=== PATIENT | male | born 1940 | race Caucasian/White ===

== ENCOUNTER 2017-06-11 14:47 | Inpatient (IN) | payer MEDICARE, OTHER ==
[~2017-06-11] VITALS: Ht 175.3 cm; Wt 62.1 kg
[2017-06-11] MEDS ORDERED: FOLIC ACID1 MG ORAL (15:00)
[2017-06-11] MEDS ORDERED: LOTENSIN20 MG ORAL (15:00)
[2017-06-11] MEDS ORDERED: LAMICTAL25 MG ORAL (15:00)
[2017-06-11] MEDS ORDERED: ASPIRIN-LOW81 MG ORAL (15:00)
[2017-06-11] MEDS ORDERED: ATIVAN0.5 MG ORAL (15:00)
[2017-06-11] MEDS ORDERED: LEXAPRO10 MG ORAL (15:00)
[2017-06-11] MEDS ORDERED: MILK OF MA400 MG/51 ORAL (15:00)
[2017-06-11] MEDS ORDERED: RENA-VITE TABL0.8 M1 PO (15:12)
[2017-06-11] MEDS ORDERED: CALCIUM 500 +1 EAC5 PO (15:12)
[2017-06-11] MEDS ORDERED: MULTIVITAMINS1 EAC8 ORAL (15:12)
[2017-06-11] MEDS ORDERED: ZYPREXA5 MG ORAL (15:12)
[2017-06-11] MEDS ORDERED: VITAMIN C500 M1 ORAL (15:12)
[2017-06-11] MEDS ORDERED: ACETAMINOPHEN325 M1 ORAL (15:12)
[2017-06-11] MEDS ORDERED: NEPHROVITE1 TAB ORAL (15:12)
[2017-06-11] MEDS ORDERED: RESTORIL15 MG ORAL (15:12)
--- NOTE | 2017-06-11 15:19 | Emergency Room Report ---
History of Present Illness General Chief Complaint: Altered Level of Consciousness Source: Patient, Medical Record, EMS Present Illness HPI Patient's 77-year-old male who presents after increased altered mental status. Patient was noted to have gradual onset of symptoms. Patient is normally more alert and had been noted to have decreased by mouth intake. Allergies: Coded Allergies: No Known Allergies (Unverified , 06/11/17) Patient History Past Medical History: see triage record Reviewed Nursing Documentation: PMH: Agreed, PSxH: Agreed Nursing Documentation-PMH Hx COPD: Yes Review of Systems All Other Systems: limited Physical Exam Vital Signs Date Time Temp Pulse Resp B/P (MAP) Pulse Ox O2 Delivery O2 Flow Rate FiO2 06/11/17 14:38 97.5 60 18 126/76 90 Room Air Sp02 EP Interpretation: reviewed, normal General Appearance: alert, Chronically Ill Head: atraumatic Neck: supple, no bony tend, limited range of motion Respiratory: normal inspection, lungs clear, normal breath sounds, no respiratory distress, no retraction, no wheezing Cardiovascular #1: regular rate, rhythm, no edema Gastrointestinal: normal inspection, normal bowel sounds, non tender, soft, no guarding, no hernia Genitourinary: no CVA tenderness Musculoskeletal: normal inspection, back normal, normal range of motion Neurologic: normal inspection, alert, motor weakness - left upper and lower extremity Psychiatric: depressed affect Skin: normal inspection, normal color, no rash Medical Decision Making Diagnostic Impression: Primary Impression: Altered level of consciousness Additional Impressions: Urinary tract infection CVA, old, hemiparesis ER Course Patient presented for altered mental status. Differential diagnosis included but was not limited to ischemic stroke, subarachnoid hemorrhage, hypoglycemia, spinal cord injury, neurodegenerative disorder, urinary tract infection, hypoxemia.Because of complexity of patient's case laboratory testing and imaging studies were ordered.Laboratory testing showed evidence of urinary tract infection. Patient started on IV fluids. He was given IV antibiotics. Patient appears to be somewhat dehydrated.The patient was noted to have a prior history of CVA with contractions to the lower extremities on the left side Dr. Sree Honeycutt was contacted for inpatient management as covering physician Labs Test 06/11/17 15:00 06/11/17 15:25 Arterial Blood pH 7.410 (7.350-7.450) Arterial Blood Partial Pressure CO2 38.5 mmHg (35.0-45.0) Arterial Blood Partial Pressure O2 72.6 mmHg (75.0-100.0) Arterial Blood HCO3 24.1 mmol/L (22.0-26.0) Arterial Blood Oxygen Saturation 94.5 % (92.0-98.0) Arterial Blood Base Excess -0.2 Pepe Test Positive White Blood Count 9.1 K/UL (4.8-10.8) Red Blood Count 4.95 M/UL (4.70-6.10) Hemoglobin 15.2 G/DL (14.2-18.0) Hematocrit 47.5 % (42.0-52.0) Mean Corpuscular Volume 96 FL (80-99) Mean Corpuscular Hemoglobin 30.7 PG (27.0-31.0) Mean Corpuscular Hemoglobin Concent 32.0 G/DL (32.0-36.0) Red Cell Distribution Width 12.1 % (11.6-14.8) Platelet Count 126 K/UL (150-450) Mean Platelet Volume 6.9 FL (6.5-10.1) Neutrophils (%) (Auto) 70.3 % (45.0-75.0) Lymphocytes (%) (Auto) 21.5 % (20.0-45.0) Monocytes (%) (Auto) 7.5 % (1.0-10.0) Eosinophils (%) (Auto) 0.2 % (0.0-3.0) Basophils (%) (Auto) 0.5 % (0.0-2.0) Prothrombin Time 10.0 SEC (9.30-11.50) Prothromb Time International Ratio 1.0 (0.9-1.1) Activated Partial Thromboplast Time 31 SEC (23-33) Urine Color Brown Urine Appearance Slightly cloudy Urine pH 5 (4.5-8.0) Urine Specific [place] 1.020 (1.005-1.035) Urine Protein 2+ (NEGATIVE) Urine Glucose (UA) Negative (NEGATIVE) Urine Ketones 1+ (NEGATIVE) Urine Occult Blood 3+ (NEGATIVE) Urine Nitrite Negative (NEGATIVE) Urine Bilirubin Negative (NEGATIVE) Urine Urobilinogen 4 MG/DL (0.0-1.0) Urine Leukocyte Esterase 3+ (NEGATIVE) Urine RBC 30-40 /HPF (0 - 0) Urine WBC 40-60 /HPF (0 - 0) Urine Squamous Epithelial Cells Occasional /LPF Urine Bacteria Moderate /HPF (NONE) EKG Diagnostic Results Rate: bradycardiac - 51 Rhythm: NSR ST Segments: no acute changes Last Vital Signs Date Time Temp Pulse Resp B/P (MAP) Pulse Ox O2 Delivery O2 Flow Rate FiO2 06/11/17 14:38 97.5 60 18 126/76 90 Room Air Status: unchanged Disposition: ADMITTED INPATIENT Condition: Serious Referrals: MADDIE AMATO (PCP) Forrest Martin Jun 11, 2017 15:19
[2017-06-11 16:00] VITALS: BP 120/87
[2017-06-11] MEDS ORDERED: Tubing IV Cassette IV ONE (16:10)
[2017-06-11 16:20] LABS: APPEARANCE,URINE SLIGHTLY CLOUDY; BILIRUBIN, URINE NEGATIVE (NEGATIVE); COLOR,URINE BROWN; GLUCOSE, URINE (UA) NEGATIVE (NEGATIVE); KETONES,URINE 1+ (NEGATIVE); LEUKOCYTE ESTERASE ,URINE 3+ (NEGATIVE); NITRITE,URINE NEGATIVE (NEGATIVE); PH,URINE 5 (4.5-8.0); PROTEIN,URINE 2+ (NEGATIVE); UROBILINOGEN,URINE 4 MG/DL (0.0-1.0)
[2017-06-11 16:28] LABS: BASOPHILS % (AUTO) 0.5 % (0.0-2.0); EOSINOPHILS % (AUTO) 0.2 % (0.0-3.0); HEMATOCRIT 47.5 % (42.0-52.0); HEMOGLOBIN 15.2 G/DL (14.2-18.0); LYMPHOCYTES % (AUTO) 21.5 % (20.0-45.0); MEAN CORPUSCULAR VOLUME 96 FL (80-99); MONOCYTES % (AUTO) 7.5 % (1.0-10.0); NEUTROPHILS % (AUTO) 70.3 % (45.0-75.0); PLATELET COUNT 126 K/UL (150-450); RED BLOOD COUNT 4.95 M/UL (4.70-6.10); RED CELL DISTRIBUTION WIDTH 12.1 % (11.6-14.8); WHITE BLOOD COUNT 9.1 K/UL (4.8-10.8)
[2017-06-11 16:29] LABS: ANION GAP 11 mmol/L (5-15); BLOOD UREA NITROGEN 41 mg/dL (7-18); CALCIUM 7.8 MG/DL (8.5-10.1); CARBON DIOXIDE 27 MMOL/L (21-32); CHLORIDE 115 MMOL/L (98-107); CREATININE 1.3 MG/DL (0.55-1.30); POTASSIUM 3.7 MMOL/L (3.5-5.1); SODIUM 153 MMOL/L (136-145)
[2017-06-11 16:42] LABS: ALANINE AMINOTRANSFERASE 11 U/L (12-78); ALBUMIN 2.8 G/DL (3.4-5.0); ALBUMIN/GLOBULIN RATIO 0.7 (1.0-2.7); ALKALINE PHOSPHATASE 79 U/L (46-116); ASPARTATE AMINO TRANSFERASE 17 U/L (15-37); BILIRUBIN,TOTAL 0.6 MG/DL (0.2-1.0); CKMB < 0.5 NG/ML (0.0-3.6); CREATINE KINASE 13 U/L (26-308)
[2017-06-11] MEDS ORDERED: cefTRIAXone 2 GM in NS 55 ML IVPB ONE (16:45)
[2017-06-11] MEDS ORDERED: NS 55 ML IV ONE (17:38)
[2017-06-11 18:00] VITALS: BP 121/61
[2017-06-11 20:40] VITALS: BP 153/62
[2017-06-11 23:44] VITALS: BP 155/77
[2017-06-12] VITALS (7 sets, daily range): BP systolic 111–161; BP diastolic 68–87
[2017-06-12] MEDS ORDERED: Milk of Magnesia 30ml Ud ORAL PRN (07:30)
[2017-06-12] MEDS ORDERED: LORazepam 0.5mg tab ORAL PRN (07:30)
[2017-06-12 08:20] LABS: BASOPHILS % (AUTO) 0.9 % (0.0-2.0); EOSINOPHILS % (AUTO) 1.3 % (0.0-3.0); HEMATOCRIT 45.7 % (42.0-52.0); HEMOGLOBIN 15.1 G/DL (14.2-18.0); LYMPHOCYTES % (AUTO) 22.2 % (20.0-45.0); MEAN CORPUSCULAR VOLUME 97 FL (80-99); NEUTROPHILS % (AUTO) 67.6 % (45.0-75.0); PLATELET COUNT 120 K/UL (150-450); RED CELL DISTRIBUTION WIDTH 12.5 % (11.6-14.8)
[2017-06-12] MEDS: Ascorbic Acid 500mg tab ORAL SCH (08:49)
[2017-06-12] MEDS: Aspirin Baby 81mg ORAL SCH (08:49)
[2017-06-12] MEDS ORDERED: Nephrovite tab (Rena-Vite) ORAL SCH ×2 (09:00)
[2017-06-12] MEDS ORDERED: Flu Vaccine Quadrivalent 0.5ml IM ONE (09:00)
[2017-06-12] MEDS: Heparin 5000 units/ml inj SUBQ SCH ×2 (09:00→17:39)
[2017-06-12 09:02] LABS: ALANINE AMINOTRANSFERASE < 6 U/L (12-78); ALBUMIN 2.6 G/DL (3.4-5.0); ALBUMIN/GLOBULIN RATIO 0.7 (1.0-2.7); ALKALINE PHOSPHATASE 69 U/L (46-116); ANION GAP 10 mmol/L (5-15); ASPARTATE AMINO TRANSFERASE 17 U/L (15-37); BILIRUBIN,TOTAL 0.5 MG/DL (0.2-1.0); BLOOD UREA NITROGEN 40 mg/dL (7-18); CALCIUM 7.8 MG/DL (8.5-10.1); CARBON DIOXIDE 24 MMOL/L (21-32); CHLORIDE 120 MMOL/L (98-107); CREATININE 0.9 MG/DL (0.55-1.30); POTASSIUM 3.6 MMOL/L (3.5-5.1); SODIUM 154 MMOL/L (136-145)
--- NOTE | 2017-06-12 10:12 | Consultation ---
Consult Note Consult Note Patient's 77-year-old male who presents after increased altered mental status. Patient was noted to have gradual onset of symptoms. Patient is normally more alert and had been noted to have decreased by mouth intake. examined- non historian data reviewed meds reviewed discussed with RN . Assessment/Plan Encephalopathy Urinary tract infection CVA, old, hemiparesis Hypernatremia / dehydration D5W Adjust mind altering meds monitor renal parameters Antibiotics JACQUELINE HILL Jun 12, 2017 10:12
--- NOTE | 2017-06-12 12:09 | Neurology Progress Note ---
Objective Physical Exam Last Vital Signs Date Time Temp Pulse Resp B/P (MAP) Pulse Ox O2 Delivery O2 Flow Rate FiO2 06/12/17 08:48 147/70 06/12/17 04:00 63 06/12/17 04:00 97.5 20 97 Nasal Cannula 06/12/17 00:05 2.0 Laboratory Tests Test 06/11/17 15:00 06/11/17 15:25 06/12/17 07:47 Arterial Blood pH 7.410 (7.350-7.450) Arterial Blood Partial Pressure CO2 38.5 mmHg (35.0-45.0) Arterial Blood Partial Pressure O2 72.6 mmHg (75.0-100.0) L Arterial Blood HCO3 24.1 mmol/L (22.0-26.0) Arterial Blood Oxygen Saturation 94.5 % (92.0-98.0) Arterial Blood Base Excess -0.2 Pepe Test Positive White Blood Count 9.1 K/UL (4.8-10.8) 6.0 K/UL (4.8-10.8) Red Blood Count 4.95 M/UL (4.70-6.10) 4.70 M/UL (4.70-6.10) Hemoglobin 15.2 G/DL (14.2-18.0) 15.1 G/DL (14.2-18.0) Hematocrit 47.5 % (42.0-52.0) 45.7 % (42.0-52.0) Mean Corpuscular Volume 96 FL (80-99) 97 FL (80-99) Mean Corpuscular Hemoglobin 30.7 PG (27.0-31.0) 32.1 PG (27.0-31.0) H Mean Corpuscular Hemoglobin Concent 32.0 G/DL (32.0-36.0) 33.0 G/DL (32.0-36.0) Red Cell Distribution Width 12.1 % (11.6-14.8) 12.5 % (11.6-14.8) Platelet Count 126 K/UL (150-450) L 120 K/UL (150-450) L Mean Platelet Volume 6.9 FL (6.5-10.1) 6.7 FL (6.5-10.1) Neutrophils (%) (Auto) 70.3 % (45.0-75.0) 67.6 % (45.0-75.0) Lymphocytes (%) (Auto) 21.5 % (20.0-45.0) 22.2 % (20.0-45.0) Monocytes (%) (Auto) 7.5 % (1.0-10.0) 8.0 % (1.0-10.0) Eosinophils (%) (Auto) 0.2 % (0.0-3.0) 1.3 % (0.0-3.0) Basophils (%) (Auto) 0.5 % (0.0-2.0) 0.9 % (0.0-2.0) Prothrombin Time 10.0 SEC (9.30-11.50) Prothromb Time International Ratio 1.0 (0.9-1.1) Activated Partial Thromboplast Time 31 SEC (23-33) Urine Color Brown Urine Appearance Slightly cloudy Urine pH 5 (4.5-8.0) Urine Specific [place] 1.020 (1.005-1.035) Urine Protein 2+ (NEGATIVE) H Urine Glucose (UA) Negative (NEGATIVE) Urine Ketones 1+ (NEGATIVE) H Urine Occult Blood 3+ (NEGATIVE) H Urine Nitrite Negative (NEGATIVE) Urine Bilirubin Negative (NEGATIVE) Urine Urobilinogen 4 MG/DL (0.0-1.0) H Urine Leukocyte Esterase 3+ (NEGATIVE) H Urine RBC 30-40 /HPF (0 - 0) H Urine WBC 40-60 /HPF (0 - 0) H Urine Squamous Epithelial Cells Occasional /LPF Urine Bacteria Moderate /HPF (NONE) H Sodium Level 153 MMOL/L (136-145) H 154 MMOL/L (136-145) H Potassium Level 3.7 MMOL/L (3.5-5.1) 3.6 MMOL/L (3.5-5.1) Chloride Level 115 MMOL/L (98-107) H 120 MMOL/L (98-107) H Carbon Dioxide Level 27 MMOL/L (21-32) 24 MMOL/L (21-32) Anion Gap 11 mmol/L (5-15) 10 mmol/L (5-15) Blood Urea Nitrogen 41 mg/dL (7-18) H 40 mg/dL (7-18) H Creatinine 1.3 MG/DL (0.55-1.30) 0.9 MG/DL (0.55-1.30) Estimat Glomerular Filtration Rate mL/min (>60) mL/min (>60) Glucose Level 123 MG/DL (74-106) H 105 MG/DL (74-106) Lactic Acid Level 1.30 mmol/L (0.66-2.22) Calcium Level 7.8 MG/DL (8.5-10.1) L 7.8 MG/DL (8.5-10.1) L Total Bilirubin 0.6 MG/DL (0.2-1.0) 0.5 MG/DL (0.2-1.0) Aspartate Amino Transf (AST/SGOT) 17 U/L (15-37) 17 U/L (15-37) Alanine Aminotransferase (ALT/SGPT) 11 U/L (12-78) L < 6 U/L (12-78) L Alkaline Phosphatase 79 U/L (46-116) 69 U/L (46-116) Total Creatine Kinase 13 U/L (26-308) L Creatine Kinase MB < 0.5 NG/ML (0.0-3.6) Creatine Kinase MB Relative Index 3.8 Troponin I 0.015 ng/mL (0.000-0.056) Total Protein 6.8 G/DL (6.4-8.2) 6.2 G/DL (6.4-8.2) L Albumin 2.8 G/DL (3.4-5.0) L 2.6 G/DL (3.4-5.0) L Globulin 4.0 g/dL 3.6 g/dL Albumin/Globulin Ratio 0.7 (1.0-2.7) L 0.7 (1.0-2.7) L Impression/Recommendations Problems: (1) lethargy, 2/2metabolic encephalopathy/UTI (2) 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
--- NOTE | 2017-06-12 12:59 | Diagnostic Imaging Report ---
Indication: Dyspnea Comparison: None A single view chest radiograph was obtained. Findings: No definite infiltrate or pulmonary vascular congestion identified. The heart is normal in size. The aorta is mildly enlarged consistent with atherosclerotic vascular disease. The bones are osteopenic. Impression: No acute disease
[2017-06-12] MEDS ORDERED: cefTRIAXone 1 GM in NS 55 ML IVPB SCH (18:00)
--- NOTE | 2017-06-12 20:00 | Consultation ---
DATE OF CONSULTATION: 06/12/2017 NEUROLOGICAL CONSULTATION CONSULTING PHYSICIAN: Crispin Aguirre M.D. REQUESTING PHYSICIAN: German Carlin D.O. HISTORY OF PRESENT ILLNESS: The patient is a 77-year-old man seen in neurological consultation due to progressive changes in mental status. The patient has preexistent multiple medical issues, but overall being awake, developed gradual progressive changes in mental status, becoming lethargic, intermittently shouting, agitated, there was reduction in p.o. intake. He was brought to emergency room. Vital signs were stable, blood pressure 126/76, temperature 97.5. Initial diagnostic studies included laboratory work with normal CBC and coagulation panel. Urinalysis with WBCs 40 to 60, 1+ ketones, and 2+ protein. Chemistry panel with abnormal, sodium 153, chloride 115, BUN of 41, blood sugar 123, low calcium level. CBC study with low platelets 126. EKG bradycardia 51, normal sinus rhythm. Since admission till present, the patient described as being lethargic, poor verbal response. PAST MEDICAL HISTORY: The patient unable to provide with such information this was complied from medical records known that the patient has old stroke with left hemiparesis, COPD, diabetes type 2, hypertension, hyperlipidemia, chronic anemia, chronic pain syndrome, history of schizoaffective disorder. MEDICATIONS: Treatment prior to admission included aspirin, Lotensin, Lexapro, folate, Lamictal 25 mg daily, Lorazepam, Zyprexa 5 mg daily, Restoril, and vitamin B complex. ALLERGIES: None reported. SOCIAL HISTORY: Resident of nursing facility. FAMILY HISTORY: Unavailable. REVIEW OF SYMPTOMS: Unable to obtain due to patient's status. PHYSICAL EXAMINATION: GENERAL: This is a well-developed, somewhat cachectic elderly man, found to be asleep. VITAL SIGNS: Stable. Blood pressure 147/70 and temperature 97.5. HEENT: Head, normocephalic. There is no evidence of trauma. There is temporal muscle wasting. NECK: Somewhat rigid in all directions. MUSCULOSKELETAL: Flexor contracture left wrist and left leg. Peripheral pulses 1+ symmetric. MENTAL STATUS: The patient is lethargic, but on vigorous stimulation open eyes, does not follow commands, mumbling and coherent. He has a brief eye contact. CRANIAL NERVE II: Pupils both responding to light and accommodation. Extraocular movements full range. CRANIAL NERVE V: Normal corneal responses. CRANIAL NERVE VII: Droop left nasolabial fold. CRANIAL NERVE VIII: Probably decreased hearing. CRANIAL NERVES IX THROUGH XII: Tongue is in midline. Symmetric palate elevation. The patient reportedly was able to be eat. MOTOR EXAMINATION: Spastic left upper and left lower extremity with spastic contracture of left wrist and left knee. Minor spontaneous movement on the left with good spontaneous movement on the right. Able to lift arms and legs against the gravity. Deep tendon reflexes depressed bilaterally. Positive Babinski on the left. SENSORY EXAMINATION: No response to pin stimulation. IMPRESSION: 1. Status post old right middle cerebral artery distribution stroke with left hemiparesis now presenting with progressive lethargy most likely related to underlying metabolic derangement and infection. 2. Urinary tract infection. 3. Hypernatremia. 4. Hypertension. 5. Diabetes type 2. 6. Chronic psychiatric disorder. RECOMMENDATIONS: The patient to continue with IV fluids and antibiotics to cover underlying infection. In addition, we will hold all sedating medications which could be reintroduced as necessary. In necessary, we will proceed with CT of the brain. Discussed the patient's status with medical staff. Thank you for allowing me to see this interesting patient in neurological consultation. Crispin Aguirre M.D. DR: Yolanda JOB#: [id number] CC:
--- NOTE | 2017-06-12 20:45 | Consultation ---
DATE OF CONSULTATION: 06/11/2017 INFECTIOUS DISEASES CONSULTATION CONSULTING PHYSICIAN: Sean Carroll M.D. PRIMARY ATTENDING PHYSICIAN: German Carlin D.O. REASON FOR CONSULTATION: Urinary tract infection. HISTORY OF PRESENT ILLNESS: The patient is a 77-year-old, white male, who is a retirement resident, admitted last night by altered mental status. The patient is nonverbal and not a source of history. He had no fever and leukocytosis but had hematuria and pyuria. PAST MEDICAL HISTORY: Significant for CVA and left spastic hemiparesis, COPD, cataract, dysphagia but prior to admission has no tube feeding and has history of thrombocytopenia. ALLERGIES: No known drug allergies. MEDICATIONS: Zyprexa, ceftriaxone, heparin, aspirin, folic acid, Lexapro, benazepril, multivitamin, vitamin C, lorazepam, magnesium hydroxide, temazepam and Tylenol. SOCIAL HISTORY: residential resident. No other history obtainable. PHYSICAL EXAMINATION: VITAL SIGNS: Temperature 97.3, pulse 65, and blood pressure 144/68. GENERAL APPEARANCE: No acute distress. Lethargic. HEAD AND NECK: Some ptosis in the left side. HEART: Regular. Normal rate. LUNGS: Clear. ABDOMEN: Soft. EXTREMITIES: Has no edema. Has contracture in the left upper extremity. LABORATORY AND DIAGNOSTIC DATA: Sodium 154, potassium 3.6, chloride 120, BUN 40 and creatinine 0.9. Albumin is 2.6. WBC 6000, hemoglobin 15.1, hematocrit 45.7, and platelet is 120. UA showed RBCs 30 to 40, WBCs 40 to 60, protein 2+, ketone 1+, and occult blood 3+. Chest x-ray was negative. IMPRESSION: Pyuria and hematuria with altered mental status likely urinary tract infection. The patient currently has Contreras catheter. He has chronic obstructive pulmonary disease by history. He has altered mental status with lethargy. He has dehydration and hypernatremia. He has dementia. He has old CVA and left spastic hemiparesis. RECOMMENDATION: We will continue ceftriaxone. We will follow up the urine culture. At the end of my exam, I thank, Dr. German Carlin, for involving me in the care of this patient. Sean Carroll M.D. DR: GARRET JOB#: [id number] CC:
--- NOTE | 2017-06-12 23:46 | Consultation ---
History of Present Illness General Date patient seen: Jun 12, 2017 Chief Complaint: Altered Level of Consciousness Present Illness HPI 77-year-old, white male, admitted for altered mental status. the pt is not able to participate in eval and answer the questions. the pt has impairment of cognition. Allergies: Coded Allergies: No Known Allergies (Unverified , 06/11/17) Medication History Scheduled Ascorbic Acid* (Vitamin C*), 500 MG ORAL DAILY, (Reported) Aspirin (Aspirin EC), 81 MG ORAL DAILY, (Reported) Benazepril Hcl* (Lotensin*), 20 MG ORAL BID, (Reported) Calcium Carbonate/Vitamin D3 (Calcium 500 + Vit D 200 Tablet), 1 EACH PO BID, ( Reported) Escitalopram Oxalate* (Lexapro*), 10 MG ORAL DAILY, (Reported) Folic Acid* (Folic Acid*), 1 MG ORAL DAILY, (Reported) Folic Acid/Vitamin B Comp W-C (Sarah-Ruben Tablet), 0.8 MG PO DAILY, (Reported) Lamotrigine* (Lamictal*), 25 MG ORAL DAILY, (Reported) Lorazepam* (Ativan*), 0.5 MG ORAL EVERY 6 HOURS, (Reported) Multivitamin With Minerals (Multivitamins With Minerals*), 1 TAB ORAL DAILY, ( Reported) Olanzapine* (Zyprexa*), 5 MG ORAL DAILY, (Reported) Vitamin B Cmplx/Vit C/Folic AC (Nephro-Ruben Tablet), 1 TAB ORAL DAILY, (Reported ) Scheduled PRN Acetaminophen* (Acetaminophen 325MG Tablet*), 650 MG ORAL Q4H PRN for Fever/ Headache/Mild Pain, (Reported) Magnesium Hydroxide* (Milk Of Magnesia*), 30 ML ORAL EVERY 6 HOURS PRN for Constipation, (Reported) Temazepam* (Restoril*), 15 MG ORAL BEDTIME PRN for Insomnia, (Reported) Patient History History Provided By: Patient, Medical Record, PMD Healthcare decision maker Resuscitation status Full Code Advanced Directive on File Past Medical/Surgical History Past Medical/Surgical History: (1) Urinary tract infection (2) Altered level of consciousness (3) CVA, old, hemiparesis (4) 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 ,L spastic hemiparesis, vascular dementia (5) lethargy, 2/2metabolic encephalopathy/UTI Review of Systems Psychiatric: Reports: prior hx, anxiety, depressed feelings, hallucinations Physical Exam General Appearance: no apparent distress, confused, agitated Neurologic: disoriented, unresponsiveness Last 24 Hour Vital Signs Date Time Temp Pulse Resp B/P (MAP) Pulse Ox O2 Delivery O2 Flow Rate FiO2 06/12/17 20:00 98.1 58 20 111/77 97 Room Air 57 63 06/12/17 17:31 136/78 06/12/17 16:00 97.0 84 18 136/78 95 Nasal Cannula 06/12/17 16:00 62 06/12/17 12:00 62 06/12/17 12:00 97.3 65 18 144/68 97 Nasal Cannula 06/12/17 08:48 147/70 06/12/17 08:00 97.2 55 18 147/70 97 Nasal Cannula 06/12/17 08:00 70 06/12/17 04:00 63 06/12/17 04:00 97.5 96 20 161/73 97 Nasal Cannula 06/12/17 00:36 70 06/12/17 00:17 153/74 06/12/17 00:05 97.2 62 19 158/82 94 Nasal Cannula 2.0 06/11/17 23:44 98.4 72 22 155/77 93 Room Air Intake and Output 06/11/17 06/12/17 19:00 07:00 Intake Total 1100 ml Output Total 475 ml Balance 1100 ml -475 ml Intake Oral 0 ml IV Total 1100 ml Output Urine Total 475 ml # Bowel Movements 1 Laboratory Tests Test 06/12/17 07:47 White Blood Count 6.0 K/UL (4.8-10.8) Red Blood Count 4.70 M/UL (4.70-6.10) Hemoglobin 15.1 G/DL (14.2-18.0) Hematocrit 45.7 % (42.0-52.0) Mean Corpuscular Volume 97 FL (80-99) Mean Corpuscular Hemoglobin 32.1 PG (27.0-31.0) H Mean Corpuscular Hemoglobin Concent 33.0 G/DL (32.0-36.0) Red Cell Distribution Width 12.5 % (11.6-14.8) Platelet Count 120 K/UL (150-450) L Mean Platelet Volume 6.7 FL (6.5-10.1) Neutrophils (%) (Auto) 67.6 % (45.0-75.0) Lymphocytes (%) (Auto) 22.2 % (20.0-45.0) Monocytes (%) (Auto) 8.0 % (1.0-10.0) Eosinophils (%) (Auto) 1.3 % (0.0-3.0) Basophils (%) (Auto) 0.9 % (0.0-2.0) Sodium Level 154 MMOL/L (136-145) H Potassium Level 3.6 MMOL/L (3.5-5.1) Chloride Level 120 MMOL/L (98-107) H Carbon Dioxide Level 24 MMOL/L (21-32) Anion Gap 10 mmol/L (5-15) Blood Urea Nitrogen 40 mg/dL (7-18) H Creatinine 0.9 MG/DL (0.55-1.30) Estimat Glomerular Filtration Rate mL/min (>60) Glucose Level 105 MG/DL (74-106) Calcium Level 7.8 MG/DL (8.5-10.1) L Total Bilirubin 0.5 MG/DL (0.2-1.0) Aspartate Amino Transf (AST/SGOT) 17 U/L (15-37) Alanine Aminotransferase (ALT/SGPT) < 6 U/L (12-78) L Alkaline Phosphatase 69 U/L (46-116) Total Protein 6.2 G/DL (6.4-8.2) L Albumin 2.6 G/DL (3.4-5.0) L Globulin 3.6 g/dL Albumin/Globulin Ratio 0.7 (1.0-2.7) L Height (Feet): 5 Height (Inches): 9.00 Weight (Pounds): 137 Medications Current Medications Medications (Trade) Dose Ordered Sig/Lopez Route PRN Reason Start Time Stop Time Status Last Admin Dose Admin Acetaminophen (Tylenol) 650 mg Q4H PRN ORAL Mild Pain/Temp > 100.5 06/12/17 07:30 07/12/17 07:29 Ascorbic Acid (Vitamin C) 500 mg DAILY ORAL 06/12/17 09:00 07/12/17 08:59 06/12/17 08:49 Aspirin (ASA) 81 mg DAILY ORAL 06/12/17 09:00 07/12/17 08:59 06/12/17 08:49 Benazepril HCl (Lotensin) 20 mg BID ORAL 06/12/17 09:00 07/12/17 08:59 06/12/17 17:31 Ceftriaxone Sodium 1 gm/ Sodium Chloride 55 ml @ 110 mls/hr DAILY@1800 IVPB 06/12/17 18:00 06/19/17 17:59 06/12/17 17:31 Dextrose 1,000 ml @ 75 mls/hr [id number] IV 06/12/17 11:00 07/12/17 10:59 06/12/17 11:57 Escitalopram Oxalate (Lexapro) 10 mg DAILY ORAL 06/12/17 09:00 07/12/17 08:59 06/12/17 08:47 Folic Acid (Folate) 1 mg DAILY ORAL 06/12/17 09:00 07/12/17 08:59 06/12/17 08:49 Heparin Sodium (Porcine) (Heparin 5000 units/ml) 5,000 units BID SUBQ 06/12/17 09:00 07/12/17 08:59 Lorazepam (Ativan) 0.5 mg Q6H PRN ORAL For Anxiety 06/12/17 07:30 06/19/17 07:29 Magnesium Hydroxide (Mom) 30 ml Q6HR PRN ORAL Constipation 06/12/17 07:30 07/12/17 07:29 Multivitamins (Multivitamins) 1 tab DAILY ORAL 06/12/17 09:00 07/12/17 08:59 06/12/17 08:47 Olanzapine (ZyPREXA) 5 mg QHS ORAL 06/13/17 21:00 07/12/17 08:59 Temazepam (Restoril) 15 mg HSPRN PRN ORAL Insomnia 06/12/17 07:30 06/19/17 07:29 Assessment/Plan Status: not improved, unchanged Assessment/Plan encephalopathy psychotic d/ mdd Oswaldo Smallwood M.D. Jun 12, 2017 23:46
[2017-06-13 03:58] VITALS: BP 121/79
[2017-06-13 07:20] LABS: BASOPHILS % (AUTO) 0.8 % (0.0-2.0); EOSINOPHILS % (AUTO) 3.2 % (0.0-3.0); HEMATOCRIT 46.6 % (42.0-52.0); MEAN CORPUSCULAR VOLUME 97 FL (80-99); MONOCYTES % (AUTO) 8.7 % (1.0-10.0); NEUTROPHILS % (AUTO) 54.4 % (45.0-75.0); PLATELET COUNT 134 K/UL (150-450); RED CELL DISTRIBUTION WIDTH 12.4 % (11.6-14.8)
[2017-06-13 07:48] LABS: ALANINE AMINOTRANSFERASE 9 U/L (12-78); ALBUMIN 2.5 G/DL (3.4-5.0); ALBUMIN/GLOBULIN RATIO 0.7 (1.0-2.7); ALKALINE PHOSPHATASE 75 U/L (46-116); ANION GAP 8 mmol/L (5-15); ASPARTATE AMINO TRANSFERASE 15 U/L (15-37); BILIRUBIN,TOTAL 0.6 MG/DL (0.2-1.0); BLOOD UREA NITROGEN 35 mg/dL (7-18); CALCIUM 7.7 MG/DL (8.5-10.1); CARBON DIOXIDE 27 MMOL/L (21-32); CHLORIDE 120 MMOL/L (98-107); CHOLESTEROL 108 MG/DL (< 200); GAMMA GLUTAMYL TRANSPEPTIDASE 6 U/L (5-85); HDL CHOLESTEROL 24 MG/DL (40-60); POTASSIUM 3.7 MMOL/L (3.5-5.1); SODIUM 155 MMOL/L (136-145); TRIGLYCERIDES 98 MG/DL (30-150)
[2017-06-13 08:24] VITALS: BP 140/73
--- NOTE | 2017-06-13 09:00 | History and Physical Report ---
DATE OF ADMISSION: 06/11/2017 I am covering for Dr. German Carlin. IDENTIFICATION DATA: Dear Dr. Carlin: The patient is a pleasant 77-year-old male with past medical history significant for cataracts, CVA, hemiparesis, COPD, and has no feeding tube 00:29 presents to the hospital with altered mental status, nonverbal. We had to consult Neurology Service. The patient with a stroke, now presents with worsening lethargy. CT scan of the brain completed. PAST MEDICAL HISTORY: CVA with left spastic hemiparesis, COPD, cataract, and dysphagia. ALLERGIES: No known drug allergies. MEDICATIONS: Zyprexa, ceftriaxone, heparin, aspirin, Lexapro, multivitamin, vitamin C, and lorazepam. SOCIAL HISTORY: longterm resident. No alcohol, tobacco, or illicit drug use. Difficult to obtain 01:03. PHYSICAL EXAMINATION: GENERAL: No acute distress. VITAL SIGNS: Reviewed. PULMONARY: Decreased breath sounds. CARDIOVASCULAR: Regular rate. No S3 or S4. ABDOMEN: Soft, nontender, and nondistended. EXTREMITIES: 1+ edema. LABORATORY AND DIAGNOSTIC DATA: Potassium 3.6, BUN of 40 and creatinine 0.9. Hemoglobin 15.1, WBC 6.9. UA, RBCs and WBCs noted. X-rays negative. No signs of 01:21 altered mental status, potentially secondary to pyuria, potentially due to UTI. He is on ceftriaxone as per ID service. ASSESSMENT AND RECOMMENDATIONS: 1. Cerebrovascular accident history notable for right cerebral artery distribution with left hemiparesis, now with worsening lethargy. CT scan of the brain is still pending. Seen by Neurology. Continue IV fluids. 2. Hypernatremia. Nephrology service to follow. 3. Hypertension. 4. Diabetes mellitus type 2. 5. Chronic 02:02. I appreciate aviation consultant care. Continue to closely monitor. 6. Deep venous thrombosis prophylaxis 02:08 as well as aspirin. Sree Dubon M.D. DR: CHEYANNE JOB#: [id number] CC:
[2017-06-13] MEDS: Ascorbic Acid 500mg tab ORAL SCH (09:02)
[2017-06-13] MEDS: Aspirin Baby 81mg ORAL SCH (09:03)
[2017-06-13] MEDS: Heparin 5000 units/ml inj SUBQ SCH ×2 (09:05→21:16)
--- NOTE | 2017-06-13 09:51 | Wound Care Consultation ---
Wound Assessment Wound Assessment #1: Wound Number: 1 Wound Present on Admission: Yes Wound Location Body Site Modif: left, dorsal - aspect of foot Wound Location Body Site: foot Wound Type: pressure ulcer Santhosh Test: Does not Santhosh Pressure Ulcer Stage: Unstageable Wound Thickness: Full Thickness Wound Length: 1.0 Wound Width: 1.0 Wound Depth: utd Percent of Wound Black/Brown: 100 - brown/luis dry thick adhered necrotic scab Wound Drainage Amount: None Wound Drainage Odor: None/Absent Tissue Surrounding Wound: Intact Wound Assessment #2: Wound Number: 2 Wound Present on Admission: Yes New Wound: No Status Change of Wound: No Wound Location Body Site: other - sacrococcygeal Wound Type: pressure ulcer Santhosh Test: Does not Santhosh Pressure Ulcer Stage: Deep Tissue Injury - noted mid area deep maroon and scattered DTI to surrounding sacral area noted some areas with blister formation at risk for skin breakdown Wound Thickness: Full Thickness Wound Length: 10.0 Wound Width: 10.0 Wound Depth: utd Percent of Wound Purple/Maroon: 100 Other Colors Identified: deep red scattered blister formation Wound Drainage Amount: None Wound Drainage Odor: None/Absent Tissue Surrounding Wound: Erythemic Wound General Appearance: Reddened - maroon Wound Comment #1 left dorsal aspect of foot unstageable pressure ucler- thick adhered dry necrotic scab #2 Sacrococcygeal scattered deep tissue injuries with blister formation. #3 left and right arms scattered ecchymosis. Recommendation -Local wound care as ordered. -Apply low air loss SPR mattress for wound and skin management. -Turn and reposition -Optimize nutrition. -Keep clean and dry. -Offload affected sites, heels for skin management and prevention. -Heel protectors -Avoid shear and friction. -Assess and notify MD for any further change of condition noted to skin. DOUGLAS BENAVIDEZ Jun 13, 2017 09:51
[2017-06-13 12:00] VITALS: BP 139/78
--- NOTE | 2017-06-13 12:46 | Infectious Diseases Prog Note ---
Assessment/Plan Assessment/Plan A: UTI Bacteremia COPD Dementia s/p CVA P: change Rocephin to Vancomycin Will f/u cultures Subjective ROS Limited/Unobtainable: Yes Constitutional: Reports: other - doing better Neurologic: Reports: other - more responsive Allergies: Coded Allergies: No Known Allergies (Unverified , 06/11/17) Objective Vital Signs Last 24 Hour Vital Signs Date Time Temp Pulse Resp B/P (MAP) Pulse Ox O2 Delivery O2 Flow Rate FiO2 06/13/17 12:00 98.1 61 18 139/78 95 61 61 61 06/13/17 09:03 140/73 06/13/17 08:24 97.7 67 20 140/73 95 67 67 67 06/13/17 08:00 69 06/13/17 04:00 67 06/13/17 03:58 97.5 58 18 121/79 92 Room Air 63 63 62 06/13/17 00:00 66 06/12/17 23:57 97.9 57 20 130/87 95 Room Air 41 61 06/12/17 20:00 98.1 58 20 111/77 97 Room Air 57 63 06/12/17 20:00 62 06/12/17 17:31 136/78 06/12/17 16:00 97.0 84 18 136/78 95 Nasal Cannula 06/12/17 16:00 62 Height (Feet): 5 Height (Inches): 9.00 Weight (Pounds): 137 General Appearance: no acute distress HEENT: mucous membranes moist Respiratory/Chest: lungs clear Cardiovascular: normal rate Abdomen: soft, non tender Extremities: no edema Neurologic/Psychiatric: other - left hemiplegia Microbiology Date/Time Source Procedure Growth Status 06/11/17 15:35 Blood Blood Culture - Preliminary NO GROWTH AFTER 24 HOURS Resulted 06/11/17 15:25 Blood Blood Culture - Preliminary Resulted 06/11/17 15:25 Nasal Nares Influenza Types A,B Antigen (APRIL) - Final Complete 06/11/17 15:25 Urine,Clean Catch Urine Culture - Preliminary Streptococcus Species Resulted Laboratory Tests Test 06/13/17 07:05 White Blood Count 6.0 K/UL (4.8-10.8) Red Blood Count 4.80 M/UL (4.70-6.10) Hemoglobin 15.0 G/DL (14.2-18.0) Hematocrit 46.6 % (42.0-52.0) Mean Corpuscular Volume 97 FL (80-99) Mean Corpuscular Hemoglobin 31.2 PG (27.0-31.0) H Mean Corpuscular Hemoglobin Concent 32.2 G/DL (32.0-36.0) Red Cell Distribution Width 12.4 % (11.6-14.8) Platelet Count 134 K/UL (150-450) L Mean Platelet Volume 7.1 FL (6.5-10.1) Neutrophils (%) (Auto) 54.4 % (45.0-75.0) Lymphocytes (%) (Auto) 33.0 % (20.0-45.0) Monocytes (%) (Auto) 8.7 % (1.0-10.0) Eosinophils (%) (Auto) 3.2 % (0.0-3.0) H Basophils (%) (Auto) 0.8 % (0.0-2.0) Sodium Level 155 MMOL/L (136-145) H Potassium Level 3.7 MMOL/L (3.5-5.1) Chloride Level 120 MMOL/L (98-107) H Carbon Dioxide Level 27 MMOL/L (21-32) Anion Gap 8 mmol/L (5-15) Blood Urea Nitrogen 35 mg/dL (7-18) H Creatinine 1.0 MG/DL (0.55-1.30) Estimat Glomerular Filtration Rate mL/min (>60) Glucose Level 100 MG/DL (74-106) Hemoglobin A1c 5.4 % (4.3-6.0) Uric Acid 5.7 MG/DL (2.6-7.2) Calcium Level 7.7 MG/DL (8.5-10.1) L Phosphorus Level 3.0 MG/DL (2.5-4.9) Magnesium Level 2.3 MG/DL (1.8-2.4) Total Bilirubin 0.6 MG/DL (0.2-1.0) Gamma Glutamyl Transpeptidase 6 U/L (5-85) Aspartate Amino Transf (AST/SGOT) 15 U/L (15-37) Alanine Aminotransferase (ALT/SGPT) 9 U/L (12-78) L Alkaline Phosphatase 75 U/L (46-116) C-Reactive Protein, Quantitative 11.7 mg/dL (0.00-0.90) H Pro-B-Type Natriuretic Peptide 90 pg/mL (0-125) Total Protein 6.3 G/DL (6.4-8.2) L Albumin 2.5 G/DL (3.4-5.0) L Globulin 3.8 g/dL Albumin/Globulin Ratio 0.7 (1.0-2.7) L Triglycerides Level 98 MG/DL (30-150) Cholesterol Level 108 MG/DL (< 200) LDL Cholesterol 66 mg/dL (<100) HDL Cholesterol 24 MG/DL (40-60) L Cholesterol/HDL Ratio 4.5 (3.3-4.4) H Vitamin B12 Level 869 PG/ML (193-986) Folate 19.5 NG/ML (8.6-58.9) Thyroid Stimulating Hormone (TSH) 0.671 uiU/mL (0.358-3.740) Current Medications Medications (Trade) Dose Ordered Sig/Lopez Route PRN Reason Start Time Stop Time Status Last Admin Dose Admin Acetaminophen (Tylenol) 650 mg Q4H PRN ORAL Mild Pain/Temp > 100.5 06/12/17 07:30 07/12/17 07:29 Ascorbic Acid (Vitamin C) 500 mg DAILY ORAL 06/12/17 09:00 07/12/17 08:59 06/13/17 09:02 Aspirin (ASA) 81 mg DAILY ORAL 06/12/17 09:00 07/12/17 08:59 06/13/17 09:03 Benazepril HCl (Lotensin) 20 mg BID ORAL 06/12/17 09:00 07/12/17 08:59 06/13/17 09:03 Ceftriaxone Sodium 1 gm/ Sodium Chloride 55 ml @ 110 mls/hr DAILY@1800 IVPB 06/12/17 18:00 06/19/17 17:59 06/12/17 17:31 Dextrose 1,000 ml @ 75 mls/hr [id number] IV 06/12/17 11:00 07/12/17 10:59 06/13/17 02:00 Folic Acid (Folate) 1 mg DAILY ORAL 06/12/17 09:00 07/12/17 08:59 06/13/17 09:03 Heparin Sodium (Porcine) (Heparin 5000 units/ml) 5,000 units EVERY 12 HOURS SUBQ 06/13/17 21:00 07/13/17 20:59 Lorazepam (Ativan) 0.5 mg Q6H PRN ORAL For Anxiety 06/12/17 07:30 06/19/17 07:29 Magnesium Hydroxide (Mom) 30 ml Q6HR PRN ORAL Constipation 06/12/17 07:30 07/12/17 07:29 Multivitamins (Multivitamins) 1 tab DAILY ORAL 06/12/17 09:00 07/12/17 08:59 06/13/17 09:03 Olanzapine (ZyPREXA) 5 mg QHS ORAL 06/13/17 21:00 07/12/17 08:59 Temazepam (Restoril) 15 mg HSPRN PRN ORAL Insomnia 06/12/17 07:30 06/19/17 07:29 ANTHONY BUCKLEY Jun 13, 2017 12:46
[2017-06-13] MEDS ORDERED: Vancomycin 1250mg/D5W 250ml IVPB ONE (14:00)
[2017-06-13 16:20] VITALS: BP 140/67
--- NOTE | 2017-06-13 16:38 | Nephrology Progress Note ---
Assessment/Plan Assessment Encephalopathy Urinary tract infection CVA, old, hemiparesis Hypernatremia / dehydration Plan D5W Adjust mind altering meds monitor renal parameters Antibiotics Subjective ROS Limited/Unobtainable: No Constitutional: Reports: other - more responsive Objective Objective Last 24 Hour Vital Signs Date Time Temp Pulse Resp B/P (MAP) Pulse Ox O2 Delivery O2 Flow Rate FiO2 06/13/17 16:20 97.2 74 18 140/67 94 06/13/17 13:42 74 06/13/17 12:00 98.1 61 18 139/78 95 61 61 61 06/13/17 09:03 140/73 06/13/17 08:24 97.7 67 20 140/73 95 67 67 67 06/13/17 08:00 69 06/13/17 04:00 67 06/13/17 03:58 97.5 58 18 121/79 92 Room Air 63 63 62 06/13/17 00:00 66 06/12/17 23:57 97.9 57 20 130/87 95 Room Air 41 61 06/12/17 20:00 98.1 58 20 111/77 97 Room Air 57 63 06/12/17 20:00 62 06/12/17 17:31 136/78 Intake and Output 06/12/17 06/13/17 19:00 07:00 Intake Total 580 ml 825 ml Output Total 250 ml 550 ml Balance 330 ml 275 ml IV Total 580 ml 825 ml Output Urine Total 250 ml 550 ml # Bowel Movements 1 Laboratory Tests 06/13/17 07:05: White Blood Count 6.0, Red Blood Count 4.80, Hemoglobin 15.0, Hematocrit 46.6, Mean Corpuscular Volume 97, Mean Corpuscular Hemoglobin 31.2H, Mean Corpuscular Hemoglobin Concent 32.2, Red Cell Distribution Width 12.4, Platelet Count 134L, Mean Platelet Volume 7.1, Neutrophils (%) (Auto) 54.4, Lymphocytes (%) (Auto) 33.0, Monocytes (%) (Auto) 8.7, Eosinophils (%) (Auto) 3.2H, Basophils (%) (Auto ) 0.8, Sodium Level 155H, Potassium Level 3.7, Chloride Level 120H, Carbon Dioxide Level 27, Anion Gap 8, Blood Urea Nitrogen 35H, Creatinine 1.0, Estimat Glomerular Filtration Rate , Glucose Level 100, Hemoglobin A1c 5.4, Uric Acid 5.7, Calcium Level 7.7L, Phosphorus Level 3.0, Magnesium Level 2.3, Total Bilirubin 0.6, Gamma Glutamyl Transpeptidase 6, Aspartate Amino Transf (AST/SGOT ) 15, Alanine Aminotransferase (ALT/SGPT) 9L, Alkaline Phosphatase 75, C- Reactive Protein, Quantitative 11.7H, Pro-B-Type Natriuretic Peptide 90, Total Protein 6.3L, Albumin 2.5L, Globulin 3.8, Albumin/Globulin Ratio 0.7L, Triglycerides Level 98, Cholesterol Level 108, LDL Cholesterol 66, HDL Cholesterol 24L, Cholesterol/HDL Ratio 4.5H, Vitamin B12 Level 869, Folate 19.5 , Thyroid Stimulating Hormone (TSH) 0.671 Height (Feet): 5 Height (Inches): 9.00 Weight (Pounds): 137 General Appearance: no apparent distress, confused Cardiovascular: normal rate Respiratory/Chest: decreased breath sounds Abdomen: soft JACQUELINE HILL Jun 13, 2017 16:38
--- NOTE | 2017-06-13 17:34 | General Progress Note ---
Assessment/Plan Assessment/Plan ASSESSMENT AND RECOMMENDATIONS: 1. Status post cerebrovascular accident history notable for right cerebral artery distribution with left hemiparesis -->CT scan of the brain is still pending. Seen by Neurology. Continue IV fluids. 2. Bacteremia on abx per ID service 3. Altered mental status 4. UTI 5. COPD 6. Deep venous thrombosis prophylaxis with heparin subcutaneous 7. Dementia Subjective Allergies: Coded Allergies: No Known Allergies (Unverified , 06/11/17) All Systems: reviewed and negative except above Subjective NAD Objective Last 24 Hour Vital Signs Date Time Temp Pulse Resp B/P (MAP) Pulse Ox O2 Delivery O2 Flow Rate FiO2 06/13/17 17:27 140/67 06/13/17 16:20 97.2 74 18 140/67 94 06/13/17 13:42 74 06/13/17 12:00 98.1 61 18 139/78 95 61 61 61 06/13/17 09:03 140/73 06/13/17 08:24 97.7 67 20 140/73 95 67 67 67 06/13/17 08:00 69 06/13/17 04:00 67 06/13/17 03:58 97.5 58 18 121/79 92 Room Air 63 63 62 06/13/17 00:00 66 06/12/17 23:57 97.9 57 20 130/87 95 Room Air 41 61 06/12/17 20:00 98.1 58 20 111/77 97 Room Air 57 63 06/12/17 20:00 62 Intake and Output 06/12/17 06/13/17 19:00 07:00 Intake Total 580 ml 825 ml Output Total 250 ml 550 ml Balance 330 ml 275 ml IV Total 580 ml 825 ml Output Urine Total 250 ml 550 ml # Bowel Movements 1 Laboratory Tests 06/13/17 07:05: White Blood Count 6.0, Red Blood Count 4.80, Hemoglobin 15.0, Hematocrit 46.6, Mean Corpuscular Volume 97, Mean Corpuscular Hemoglobin 31.2H, Mean Corpuscular Hemoglobin Concent 32.2, Red Cell Distribution Width 12.4, Platelet Count 134L, Mean Platelet Volume 7.1, Neutrophils (%) (Auto) 54.4, Lymphocytes (%) (Auto) 33.0, Monocytes (%) (Auto) 8.7, Eosinophils (%) (Auto) 3.2H, Basophils (%) (Auto ) 0.8, Sodium Level 155H, Potassium Level 3.7, Chloride Level 120H, Carbon Dioxide Level 27, Anion Gap 8, Blood Urea Nitrogen 35H, Creatinine 1.0, Estimat Glomerular Filtration Rate , Glucose Level 100, Hemoglobin A1c 5.4, Uric Acid 5.7, Calcium Level 7.7L, Phosphorus Level 3.0, Magnesium Level 2.3, Total Bilirubin 0.6, Gamma Glutamyl Transpeptidase 6, Aspartate Amino Transf (AST/SGOT ) 15, Alanine Aminotransferase (ALT/SGPT) 9L, Alkaline Phosphatase 75, C- Reactive Protein, Quantitative 11.7H, Pro-B-Type Natriuretic Peptide 90, Total Protein 6.3L, Albumin 2.5L, Globulin 3.8, Albumin/Globulin Ratio 0.7L, Triglycerides Level 98, Cholesterol Level 108, LDL Cholesterol 66, HDL Cholesterol 24L, Cholesterol/HDL Ratio 4.5H, Vitamin B12 Level 869, Folate 19.5 , Thyroid Stimulating Hormone (TSH) 0.671 Height (Feet): 5 Height (Inches): 9.00 Weight (Pounds): 137 General Appearance: no apparent distress, lethargic, confused EENT: normal ENT inspection Neck: non-tender Edema: trace edema 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
[2017-06-13 20:05] VITALS: BP 124/66
[2017-06-14 00:05] VITALS: BP 130/70
[2017-06-14] MEDS ORDERED: Vancomycin 750mg/NS 250ml IVPB SCH ×2 (02:00→14:00)
[2017-06-14 04:10] VITALS: BP 145/51
[2017-06-14 08:00] VITALS: BP 125/69
[2017-06-14] MEDS: Ascorbic Acid 500mg tab ORAL SCH (08:25)
[2017-06-14] MEDS: Heparin 5000 units/ml inj SUBQ SCH ×2 (08:26→21:03)
[2017-06-14] MEDS: Aspirin Baby 81mg ORAL SCH (08:26)
--- NOTE | 2017-06-14 08:35 | General Progress Note ---
Assessment/Plan Status: progressing Assessment/Plan encephalopathy cont current meds Subjective Date patient seen: Jun 13, 2017 Allergies: Coded Allergies: No Known Allergies (Unverified , 06/11/17) Subjective the pt was still confused more engaged. Objective Last 24 Hour Vital Signs Date Time Temp Pulse Resp B/P (MAP) Pulse Ox O2 Delivery O2 Flow Rate FiO2 06/14/17 08:24 125/69 06/14/17 08:00 97.3 57 18 125/69 99 06/14/17 04:10 97.0 54 20 145/51 96 Nasal Cannula 2.0 06/14/17 04:00 70 06/14/17 00:05 97.0 72 20 130/70 95 Nasal Cannula 06/14/17 00:00 76 06/13/17 20:12 67 06/13/17 20:05 97.7 44 20 124/66 96 Nasal Cannula 06/13/17 20:00 68 06/13/17 17:27 140/67 06/13/17 16:20 97.2 74 18 140/67 94 06/13/17 16:00 77 06/13/17 13:42 74 06/13/17 12:00 98.1 61 18 139/78 95 61 61 61 06/13/17 09:03 140/73 Intake and Output 06/13/17 06/14/17 19:00 07:00 Intake Total 1177.500 ml 950.000 ml Output Total 300 ml 200 ml Balance 877.500 ml 750.000 ml Intake Oral 240 ml IV Total 937.500 ml 950.000 ml Output Urine Total 300 ml 200 ml # Bowel Movements 1 Laboratory Tests 06/14/17 07:40: Sodium Level [Pending], Potassium Level [Pending], Chloride Level [Pending], Carbon Dioxide Level [Pending], Blood Urea Nitrogen [Pending], Creatinine [ Pending], Estimat Glomerular Filtration Rate [Pending], Glucose Level [Pending] , Uric Acid [Pending], Calcium Level [Pending], Phosphorus Level [Pending], Magnesium Level [Pending], Total Bilirubin [Pending], Aspartate Amino Transf ( AST/SGOT) [Pending], Alanine Aminotransferase (ALT/SGPT) [Pending], Alkaline Phosphatase [Pending], Total Protein [Pending], Albumin [Pending], Globulin [ Pending] Height (Feet): 5 Height (Inches): 9.00 Weight (Pounds): 137 General Appearance: no apparent distress, confused Neurologic: disoriented, depressed affect Oswaldo Engel M.D. Jun 14, 2017 08:35
[2017-06-14 08:43] LABS: ALANINE AMINOTRANSFERASE 7 U/L (12-78); ALBUMIN 2.4 G/DL (3.4-5.0); ALBUMIN/GLOBULIN RATIO 0.7 (1.0-2.7); ALKALINE PHOSPHATASE 71 U/L (46-116); ANION GAP 6 mmol/L (5-15); ASPARTATE AMINO TRANSFERASE 17 U/L (15-37); BILIRUBIN,TOTAL 0.6 MG/DL (0.2-1.0); BLOOD UREA NITROGEN 23 mg/dL (7-18); CALCIUM 7.4 MG/DL (8.5-10.1); CARBON DIOXIDE 26 MMOL/L (21-32); CHLORIDE 114 MMOL/L (98-107); CREATININE 0.8 MG/DL (0.55-1.30); PHOSPHORUS 2.9 MG/DL (2.5-4.9); POTASSIUM 3.1 MMOL/L (3.5-5.1); SODIUM 146 MMOL/L (136-145)
[2017-06-14] MEDS ORDERED: Potassium Chloride 50 MEQ in Sodium Chloride 500ML 550 ML IVPB ONE (10:30)
--- NOTE | 2017-06-14 10:36 | Infectious Diseases Prog Note ---
Assessment/Plan Assessment/Plan A: UTI with Enterococcus Positive blood culture with CoaNS likely contamination COPD Dementia s/p CVA P: change Vancomycin to Amoxicillin Will f/u cultures Subjective ROS Limited/Unobtainable: No Constitutional: Reports: no symptoms Respiratory: Reports: no symptoms Cardiovascular: Reports: no symptoms Gastrointestinal/Abdominal: Reports: no symptoms Allergies: Coded Allergies: No Known Allergies (Unverified , 06/11/17) Objective Vital Signs Last 24 Hour Vital Signs Date Time Temp Pulse Resp B/P (MAP) Pulse Ox O2 Delivery O2 Flow Rate FiO2 06/14/17 08:24 125/69 06/14/17 08:00 72 06/14/17 08:00 97.3 57 18 125/69 99 06/14/17 04:10 97.0 54 20 145/51 96 Nasal Cannula 2.0 06/14/17 04:00 70 06/14/17 00:05 97.0 72 20 130/70 95 Nasal Cannula 06/14/17 00:00 76 06/13/17 20:12 67 06/13/17 20:05 97.7 44 20 124/66 96 Nasal Cannula 06/13/17 20:00 68 06/13/17 17:27 140/67 06/13/17 16:20 97.2 74 18 140/67 94 06/13/17 16:00 77 06/13/17 13:42 74 06/13/17 12:00 98.1 61 18 139/78 95 61 61 61 Height (Feet): 5 Height (Inches): 9.00 Weight (Pounds): 137 General Appearance: no acute distress HEENT: mucous membranes moist Respiratory/Chest: rhonchi - bilaterally Cardiovascular: normal rate Abdomen: soft, non tender Extremities: no edema Neurologic/Psychiatric: alert, responsive Microbiology Date/Time Source Procedure Growth Status 06/11/17 15:35 Blood Blood Culture - Preliminary NO GROWTH AFTER 48 HOURS Resulted 06/11/17 15:25 Blood Blood Culture - Preliminary Staphylococcus Sp Coag Neg Resulted 06/11/17 15:35 Nasal Nares MRSA Culture - Final NO METHICILLIN RESISTANT STAPH AUREUS... Complete 06/11/17 15:25 Nasal Nares Influenza Types A,B Antigen (APRIL) - Final Complete 06/11/17 15:45 Stool VRE Culture - Final NO VANCOMYCIN RESISTANT ENTEROCOCCUS ... Complete 06/11/17 15:25 Urine,Clean Catch Urine Culture - Final Enterococcus Faecalis Complete Laboratory Tests Test 06/14/17 07:40 Sodium Level 146 MMOL/L (136-145) H Potassium Level 3.1 MMOL/L (3.5-5.1) L Chloride Level 114 MMOL/L (98-107) H Carbon Dioxide Level 26 MMOL/L (21-32) Anion Gap 6 mmol/L (5-15) Blood Urea Nitrogen 23 mg/dL (7-18) H Creatinine 0.8 MG/DL (0.55-1.30) Estimat Glomerular Filtration Rate mL/min (>60) Glucose Level 115 MG/DL (74-106) H Uric Acid 4.5 MG/DL (2.6-7.2) Calcium Level 7.4 MG/DL (8.5-10.1) L Phosphorus Level 2.9 MG/DL (2.5-4.9) Magnesium Level 1.9 MG/DL (1.8-2.4) Total Bilirubin 0.6 MG/DL (0.2-1.0) Aspartate Amino Transf (AST/SGOT) 17 U/L (15-37) Alanine Aminotransferase (ALT/SGPT) 7 U/L (12-78) L Alkaline Phosphatase 71 U/L (46-116) Total Protein 5.8 G/DL (6.4-8.2) L Albumin 2.4 G/DL (3.4-5.0) L Globulin 3.4 g/dL Albumin/Globulin Ratio 0.7 (1.0-2.7) L Current Medications Medications (Trade) Dose Ordered Sig/Lopez Route PRN Reason Start Time Stop Time Status Last Admin Dose Admin Acetaminophen (Tylenol) 650 mg Q4H PRN ORAL Mild Pain/Temp > 100.5 06/12/17 07:30 07/12/17 07:29 Ascorbic Acid (Vitamin C) 500 mg DAILY ORAL 06/12/17 09:00 07/12/17 08:59 06/14/17 08:25 Aspirin (ASA) 81 mg DAILY ORAL 06/12/17 09:00 07/12/17 08:59 06/14/17 08:26 Benazepril HCl (Lotensin) 20 mg BID ORAL 06/12/17 09:00 07/12/17 08:59 06/14/17 08:24 Dextrose 1,000 ml @ 75 mls/hr [id number] IV 06/14/17 17:00 07/14/17 16:59 Folic Acid (Folate) 1 mg DAILY ORAL 06/12/17 09:00 07/12/17 08:59 06/14/17 08:24 Heparin Sodium (Porcine) (Heparin 5000 units/ml) 5,000 units EVERY 12 HOURS SUBQ 06/13/17 21:00 07/13/17 20:59 06/14/17 08:26 Lorazepam (Ativan) 0.5 mg Q6H PRN ORAL For Anxiety 06/12/17 07:30 06/19/17 07:29 Magnesium Hydroxide (Mom) 30 ml Q6HR PRN ORAL Constipation 06/12/17 07:30 07/12/17 07:29 Multivitamins (Multivitamins) 1 tab DAILY ORAL 06/12/17 09:00 07/12/17 08:59 06/14/17 08:24 Olanzapine (ZyPREXA) 5 mg QHS ORAL 06/13/17 21:00 07/12/17 08:59 06/13/17 21:15 Potassium Chloride 50 meq/ Sodium Chloride 575 ml @ 115 mls/hr ONCE ONCE IVPB 06/14/17 10:30 06/14/17 15:29 Temazepam (Restoril) 15 mg HSPRN PRN ORAL Insomnia 06/12/17 07:30 06/19/17 07:29 Vancomycin HCl (Vanco rx to dose) 1 ea DAILY PRN MISC Per rx protocol 06/13/17 13:00 07/13/17 12:59 Vancomycin/Sodium Chloride 250 ml @ 166.667 mls/hr Q12HR@0200,1400 IVPB 06/14/17 02:00 06/19/17 01:59 06/14/17 01:59 ANTHONY BUCKLEY Jun 14, 2017 10:36
--- NOTE | 2017-06-14 11:17 | Nephrology Progress Note ---
Assessment/Plan Problem List: (1) Urinary tract infection (2) Altered level of consciousness (3) CVA, old, hemiparesis (4) lethargy, 2/2metabolic encephalopathy/UTI (5) Hypernatremia Assessment Encephalopathy Urinary tract infection CVA, old, hemiparesis Hypernatremia / dehydration Plan D5W K supplement Adjust mind altering meds monitor renal parameters Antibiotics Subjective ROS Limited/Unobtainable: No Constitutional: Reports: malaise, other - more responsive Objective Objective Last 24 Hour Vital Signs Date Time Temp Pulse Resp B/P (MAP) Pulse Ox O2 Delivery O2 Flow Rate FiO2 06/14/17 08:24 125/69 06/14/17 08:00 72 06/14/17 08:00 97.3 57 18 125/69 99 06/14/17 04:10 97.0 54 20 145/51 96 Nasal Cannula 2.0 06/14/17 04:00 70 06/14/17 00:05 97.0 72 20 130/70 95 Nasal Cannula 06/14/17 00:00 76 06/13/17 20:12 67 06/13/17 20:05 97.7 44 20 124/66 96 Nasal Cannula 06/13/17 20:00 68 06/13/17 17:27 140/67 06/13/17 16:20 97.2 74 18 140/67 94 06/13/17 16:00 77 06/13/17 13:42 74 06/13/17 12:00 98.1 61 18 139/78 95 61 61 61 Intake and Output 06/13/17 06/14/17 19:00 07:00 Intake Total 1177.500 ml 950.000 ml Output Total 300 ml 200 ml Balance 877.500 ml 750.000 ml Intake Oral 240 ml IV Total 937.500 ml 950.000 ml Output Urine Total 300 ml 200 ml # Bowel Movements 1 Laboratory Tests 06/14/17 07:40: Sodium Level 146H, Potassium Level 3.1L, Chloride Level 114H, Carbon Dioxide Level 26, Anion Gap 6, Blood Urea Nitrogen 23H, Creatinine 0.8, Estimat Glomerular Filtration Rate , Glucose Level 115H, Uric Acid 4.5, Calcium Level 7.4L, Phosphorus Level 2.9, Magnesium Level 1.9, Total Bilirubin 0.6, Aspartate Amino Transf (AST/SGOT) 17, Alanine Aminotransferase (ALT/SGPT) 7L, Alkaline Phosphatase 71, Total Protein 5.8L, Albumin 2.4L, Globulin 3.4, Albumin/ Globulin Ratio 0.7L Height (Feet): 5 Height (Inches): 9.00 Weight (Pounds): 137 General Appearance: no apparent distress Cardiovascular: normal rate Respiratory/Chest: lungs clear Abdomen: soft JACQUELINE HILL Jun 14, 2017 11:17
[2017-06-14 12:00] VITALS: BP 149/82
[2017-06-14 16:00] VITALS: BP 139/59
--- NOTE | 2017-06-14 16:13 | Geriatric Progress Note ---
Assessment/Plan Discussed with: patient Subjective Interval Events 06/14/17 Mood/Memory: Reports: prior hx, anxiety, depressed feelings - the pt is more engaged and alert knew his name Geriatric Geriatric Last 24 Hour Vital Signs Date Time Temp Pulse Resp B/P (MAP) Pulse Ox O2 Delivery O2 Flow Rate FiO2 06/14/17 12:00 97.5 59 18 149/82 95 06/14/17 12:00 72 06/14/17 08:24 125/69 06/14/17 08:00 72 06/14/17 08:00 97.3 57 18 125/69 99 06/14/17 04:10 97.0 54 20 145/51 96 Nasal Cannula 2.0 06/14/17 04:00 70 06/14/17 00:05 97.0 72 20 130/70 95 Nasal Cannula 06/14/17 00:00 76 06/13/17 20:12 67 06/13/17 20:05 97.7 44 20 124/66 96 Nasal Cannula 06/13/17 20:00 68 06/13/17 17:27 140/67 06/13/17 16:20 97.2 74 18 140/67 94 Intake and Output 06/13/17 06/14/17 19:00 07:00 Intake Total 1177.500 ml 950.000 ml Output Total 300 ml 200 ml Balance 877.500 ml 750.000 ml Intake Oral 240 ml IV Total 937.500 ml 950.000 ml Output Urine Total 300 ml 200 ml # Bowel Movements 1 Laboratory Tests Test 06/14/17 07:40 Sodium Level 146 MMOL/L (136-145) H Potassium Level 3.1 MMOL/L (3.5-5.1) L Chloride Level 114 MMOL/L (98-107) H Carbon Dioxide Level 26 MMOL/L (21-32) Anion Gap 6 mmol/L (5-15) Blood Urea Nitrogen 23 mg/dL (7-18) H Creatinine 0.8 MG/DL (0.55-1.30) Estimat Glomerular Filtration Rate mL/min (>60) Glucose Level 115 MG/DL (74-106) H Uric Acid 4.5 MG/DL (2.6-7.2) Calcium Level 7.4 MG/DL (8.5-10.1) L Phosphorus Level 2.9 MG/DL (2.5-4.9) Magnesium Level 1.9 MG/DL (1.8-2.4) Total Bilirubin 0.6 MG/DL (0.2-1.0) Aspartate Amino Transf (AST/SGOT) 17 U/L (15-37) Alanine Aminotransferase (ALT/SGPT) 7 U/L (12-78) L Alkaline Phosphatase 71 U/L (46-116) Total Protein 5.8 G/DL (6.4-8.2) L Albumin 2.4 G/DL (3.4-5.0) L Globulin 3.4 g/dL Albumin/Globulin Ratio 0.7 (1.0-2.7) L Current Medications Medications (Trade) Dose Ordered Sig/Lopez Route PRN Reason Start Time Stop Time Status Last Admin Dose Admin Acetaminophen (Tylenol) 650 mg Q4H PRN ORAL Mild Pain/Temp > 100.5 06/12/17 07:30 07/12/17 07:29 Amoxicillin (Amoxil) 250 mg EVERY 8 HOURS ORAL 06/14/17 14:00 06/21/17 13:59 06/14/17 13:43 Ascorbic Acid (Vitamin C) 500 mg DAILY ORAL 06/12/17 09:00 07/12/17 08:59 06/14/17 08:25 Aspirin (ASA) 81 mg DAILY ORAL 06/12/17 09:00 07/12/17 08:59 06/14/17 08:26 Benazepril HCl (Lotensin) 20 mg BID ORAL 06/12/17 09:00 07/12/17 08:59 06/14/17 08:24 Dextrose 1,000 ml @ 75 mls/hr [id number] IV 06/14/17 17:00 07/14/17 16:59 Folic Acid (Folate) 1 mg DAILY ORAL 06/12/17 09:00 07/12/17 08:59 06/14/17 08:24 Heparin Sodium (Porcine) (Heparin 5000 units/ml) 5,000 units EVERY 12 HOURS SUBQ 06/13/17 21:00 07/13/17 20:59 06/14/17 08:26 Lorazepam (Ativan) 0.5 mg Q6H PRN ORAL For Anxiety 06/12/17 07:30 06/19/17 07:29 Magnesium Hydroxide (Mom) 30 ml Q6HR PRN ORAL Constipation 06/12/17 07:30 07/12/17 07:29 Multivitamins (Multivitamins) 1 tab DAILY ORAL 06/12/17 09:00 07/12/17 08:59 06/14/17 08:24 Olanzapine (ZyPREXA) 5 mg QHS ORAL 06/13/17 21:00 07/12/17 08:59 06/13/17 21:15 Temazepam (Restoril) 15 mg HSPRN PRN ORAL Insomnia 06/12/17 07:30 06/19/17 07:29 Height (Feet): 5 Height (Inches): 9.00 Weight (Pounds): 137 General Appearance: no apparent distress, alert Psychiatric Orientation: person, disoriented Oswaldo Engel M.D. Jun 14, 2017 16:13
[2017-06-14 20:00] VITALS: BP 142/79
[2017-06-15] VITALS: BP 135/74
[2017-06-15 04:05] VITALS: BP 104/80
[2017-06-15 08:00] VITALS: BP 138/70
--- NOTE | 2017-06-15 08:25 | General Progress Note ---
Assessment/Plan Assessment/Plan LATE ENTRY ASSESSMENT AND RECOMMENDATIONS: 1. 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 Thrombocytopenia, mild, will continue to monitor 3. Bacteremia on abx per ID service 4. Altered mental status 5. UTI 6. COPD 7. Deep venous thrombosis prophylaxis with heparin subcutaneous Subjective Date patient seen: Jun 14, 2017 Allergies: Coded Allergies: No Known Allergies (Unverified , 06/11/17) All Systems: reviewed and negative except above Subjective NAD Objective Last 24 Hour Vital Signs Date Time Temp Pulse Resp B/P (MAP) Pulse Ox O2 Delivery O2 Flow Rate FiO2 06/15/17 04:05 97.3 91 20 104/80 96 Room Air 06/15/17 04:00 Room Air 06/15/17 04:00 67 06/15/17 00:00 Room Air 06/15/17 00:00 69 06/15/17 00:00 97.2 94 20 135/74 98 Room Air 06/14/17 20:00 67 06/14/17 20:00 Room Air 06/14/17 20:00 97.3 97 19 142/79 96 Room Air 06/14/17 17:05 139/59 06/14/17 16:00 97.3 66 18 139/59 96 06/14/17 16:00 71 06/14/17 12:00 97.5 59 18 149/82 95 06/14/17 12:00 72 06/14/17 08:24 125/69 Intake and Output 06/14/17 06/15/17 19:00 07:00 Intake Total 959 ml 836 ml Output Total 250 ml 1300 ml Balance 709 ml -464 ml Intake Oral 240 ml IV Total 719 ml 836 ml Output Urine Total 250 ml 1300 ml # Bowel Movements 1 Height (Feet): 5 Height (Inches): 9.00 Weight (Pounds): 137 General Appearance: no apparent distress EENT: normal ENT inspection Neck: normal alignment Abdomen: normal bowel sounds Extremities: non-tender Sree Dubon Jun 15, 2017 08:25
[2017-06-15] MEDS: Heparin 5000 units/ml inj SUBQ SCH ×2 (09:00→20:43)
[2017-06-15] MEDS: Ascorbic Acid 500mg tab ORAL SCH (09:07)
[2017-06-15] MEDS: Aspirin Baby 81mg ORAL SCH (09:07)
--- NOTE | 2017-06-15 10:53 | Nephrology Progress Note ---
Assessment/Plan Problem List: (1) Urinary tract infection (2) Altered level of consciousness (3) CVA, old, hemiparesis (4) lethargy, 2/2metabolic encephalopathy/UTI (5) Hypernatremia Assessment Encephalopathy Urinary tract infection CVA, old, hemiparesis Hypernatremia / dehydration Plan D5W K supplement Adjust mind altering meds monitor renal parameters Antibiotics Dc planning Subjective ROS Limited/Unobtainable: No Constitutional: Reports: malaise Objective Objective Last 24 Hour Vital Signs Date Time Temp Pulse Resp B/P (MAP) Pulse Ox O2 Delivery O2 Flow Rate FiO2 06/15/17 09:07 138/70 06/15/17 08:00 96.3 55 20 138/70 95 Room Air 06/15/17 04:05 97.3 91 20 104/80 96 Room Air 06/15/17 04:00 Room Air 06/15/17 04:00 67 06/15/17 00:00 Room Air 06/15/17 00:00 69 06/15/17 00:00 97.2 94 20 135/74 98 Room Air 06/14/17 20:00 67 06/14/17 20:00 Room Air 06/14/17 20:00 97.3 97 19 142/79 96 Room Air 06/14/17 17:05 139/59 06/14/17 16:00 97.3 66 18 139/59 96 06/14/17 16:00 71 06/14/17 12:00 97.5 59 18 149/82 95 06/14/17 12:00 72 Intake and Output 06/14/17 06/15/17 19:00 07:00 Intake Total 959 ml 836 ml Output Total 250 ml 1300 ml Balance 709 ml -464 ml Intake Oral 240 ml IV Total 719 ml 836 ml Output Urine Total 250 ml 1300 ml # Bowel Movements 1 Height (Feet): 5 Height (Inches): 9.00 Weight (Pounds): 137 General Appearance: no apparent distress Objective no change JACQUELINE HILL Jun 15, 2017 10:53
[2017-06-15 12:00] VITALS: BP 146/92
--- NOTE | 2017-06-15 12:25 | Infectious Diseases Prog Note ---
Assessment/Plan Assessment/Plan A: UTI with Enterococcus Positive blood culture with CoaNS likely contamination COPD Dementia s/p CVA P: continue Amoxicillin Will f/u cultures Subjective ROS Limited/Unobtainable: Yes Neurologic: Reports: confusion Allergies: Coded Allergies: No Known Allergies (Unverified , 06/11/17) Objective Vital Signs Last 24 Hour Vital Signs Date Time Temp Pulse Resp B/P (MAP) Pulse Ox O2 Delivery O2 Flow Rate FiO2 06/15/17 09:07 138/70 06/15/17 08:00 96.3 55 20 138/70 95 Room Air 06/15/17 04:05 97.3 91 20 104/80 96 Room Air 06/15/17 04:00 Room Air 06/15/17 04:00 67 06/15/17 00:00 Room Air 06/15/17 00:00 69 06/15/17 00:00 97.2 94 20 135/74 98 Room Air 06/14/17 20:00 67 06/14/17 20:00 Room Air 06/14/17 20:00 97.3 97 19 142/79 96 Room Air 06/14/17 17:05 139/59 06/14/17 16:00 97.3 66 18 139/59 96 06/14/17 16:00 71 Height (Feet): 5 Height (Inches): 9.00 Weight (Pounds): 137 HEENT: mucous membranes moist Respiratory/Chest: lungs clear Cardiovascular: normal rate Abdomen: soft, non tender Extremities: no edema Neurologic/Psychiatric: alert, responsive Current Medications Medications (Trade) Dose Ordered Sig/Lopez Route PRN Reason Start Time Stop Time Status Last Admin Dose Admin Acetaminophen (Tylenol) 650 mg Q4H PRN ORAL Mild Pain/Temp > 100.5 06/12/17 07:30 07/12/17 07:29 06/15/17 03:54 Amoxicillin (Amoxil) 250 mg EVERY 8 HOURS ORAL 06/14/17 14:00 06/21/17 13:59 06/15/17 05:27 Ascorbic Acid (Vitamin C) 500 mg DAILY ORAL 06/12/17 09:00 07/12/17 08:59 06/15/17 09:07 Aspirin (ASA) 81 mg DAILY ORAL 06/12/17 09:00 07/12/17 08:59 06/15/17 09:07 Benazepril HCl (Lotensin) 20 mg BID ORAL 06/12/17 09:00 07/12/17 08:59 06/15/17 09:07 Dextrose 1,000 ml @ 75 mls/hr [id number] IV 06/14/17 17:00 07/14/17 16:59 06/15/17 05:51 Folic Acid (Folate) 1 mg DAILY ORAL 06/12/17 09:00 07/12/17 08:59 06/15/17 09:07 Heparin Sodium (Porcine) (Heparin 5000 units/ml) 5,000 units EVERY 12 HOURS SUBQ 06/13/17 21:00 07/13/17 20:59 06/14/17 21:03 Lorazepam (Ativan) 0.5 mg Q6H PRN ORAL For Anxiety 06/12/17 07:30 06/19/17 07:29 Magnesium Hydroxide (Mom) 30 ml Q6HR PRN ORAL Constipation 06/12/17 07:30 07/12/17 07:29 Multivitamins (Multivitamins) 1 tab DAILY ORAL 06/12/17 09:00 07/12/17 08:59 06/15/17 09:07 Olanzapine (ZyPREXA) 5 mg QHS ORAL 06/13/17 21:00 07/12/17 08:59 06/14/17 21:08 Temazepam (Restoril) 15 mg HSPRN PRN ORAL Insomnia 06/12/17 07:30 06/19/17 07:29 ANTHONY BUCKLEY Jun 15, 2017 12:25
[2017-06-15 16:00] VITALS: BP 145/72
[2017-06-15 20:56] VITALS: BP 142/75
--- NOTE | 2017-06-15 21:22 | General Progress Note ---
Assessment/Plan Assessment/Plan ASSESSMENT AND RECOMMENDATIONS: 1. 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 Thrombocytopenia, mild, will continue to monitor 3. Bacteremia on abx per ID service 4. Altered mental status 5. UTI 6. COPD 7. Deep venous thrombosis prophylaxis with heparin subcutaneous Subjective Allergies: Coded Allergies: No Known Allergies (Unverified , 06/11/17) All Systems: reviewed and negative except above Subjective NAD Objective Last 24 Hour Vital Signs Date Time Temp Pulse Resp B/P (MAP) Pulse Ox O2 Delivery O2 Flow Rate FiO2 06/15/17 20:56 96.5 59 18 142/75 98 Room Air 06/15/17 17:27 145/72 06/15/17 16:00 46 06/15/17 16:00 97.5 58 18 145/72 99 Room Air 06/15/17 12:00 63 06/15/17 12:00 96.3 58 20 146/92 97 Room Air 06/15/17 09:07 138/70 06/15/17 08:00 69 06/15/17 08:00 96.3 55 20 138/70 95 Room Air 06/15/17 04:05 97.3 91 20 104/80 96 Room Air 06/15/17 04:00 Room Air 06/15/17 04:00 67 06/15/17 00:00 Room Air 06/15/17 00:00 69 06/15/17 00:00 97.2 94 20 135/74 98 Room Air Intake and Output 06/14/17 06/15/17 19:00 07:00 Intake Total 959 ml 836 ml Output Total 250 ml 1300 ml Balance 709 ml -464 ml Intake Oral 240 ml IV Total 719 ml 836 ml Output Urine Total 250 ml 1300 ml # Bowel Movements 1 Height (Feet): 5 Height (Inches): 9.00 Weight (Pounds): 137 General Appearance: no apparent distress EENT: normal ENT inspection Neck: normal alignment Cardiovascular: normal peripheral pulses Respiratory/Chest: chest wall non-tender Abdomen: normal bowel sounds Extremities: normal range of motion Neurologic: group home counselor II-XII grossly normal Skin: normal pigmentation Sree Dubon Jun 15, 2017 21:22
--- NOTE | 2017-06-15 23:00 | General Progress Note ---
Assessment/Plan Assessment/Plan encephalopathy cont current meds Subjective Date patient seen: Jun 15, 2017 Allergies: Coded Allergies: No Known Allergies (Unverified , 06/11/17) Subjective the pt was still confused more engaged. Objective Last 24 Hour Vital Signs Date Time Temp Pulse Resp B/P (MAP) Pulse Ox O2 Delivery O2 Flow Rate FiO2 06/15/17 20:56 96.5 59 18 142/75 98 Room Air 06/15/17 17:27 145/72 06/15/17 16:00 46 06/15/17 16:00 97.5 58 18 145/72 99 Room Air 06/15/17 12:00 63 06/15/17 12:00 96.3 58 20 146/92 97 Room Air 06/15/17 09:07 138/70 06/15/17 08:00 69 06/15/17 08:00 96.3 55 20 138/70 95 Room Air 06/15/17 04:05 97.3 91 20 104/80 96 Room Air 06/15/17 04:00 Room Air 06/15/17 04:00 67 06/15/17 00:00 Room Air 06/15/17 00:00 69 06/15/17 00:00 97.2 94 20 135/74 98 Room Air Intake and Output 06/14/17 06/15/17 19:00 07:00 Intake Total 959 ml 836 ml Output Total 250 ml 1300 ml Balance 709 ml -464 ml Intake Oral 240 ml IV Total 719 ml 836 ml Output Urine Total 250 ml 1300 ml # Bowel Movements 1 Height (Feet): 5 Height (Inches): 9.00 Weight (Pounds): 137 Oswaldo Engel M.D. Jun 15, 2017 23:00
[2017-06-16] VITALS: BP 136/64
[2017-06-16 04:00] VITALS: BP 122/53
[2017-06-16 08:00] VITALS: BP 162/93
[2017-06-16] MEDS: Aspirin Baby 81mg ORAL SCH (08:51)
[2017-06-16] MEDS: Ascorbic Acid 500mg tab ORAL SCH (08:53)
[2017-06-16] MEDS: Heparin 5000 units/ml inj SUBQ SCH ×2 (08:54→21:00)
--- NOTE | 2017-06-16 11:53 | Nephrology Progress Note ---
Assessment/Plan Problem List: (1) Urinary tract infection (2) Altered level of consciousness (3) CVA, old, hemiparesis (4) lethargy, 2/2metabolic encephalopathy/UTI (5) Hypernatremia Assessment Encephalopathy Urinary tract infection CVA, old, hemiparesis Hypernatremia / dehydration Plan D5W K supplement Adjust mind altering meds monitor renal parameters Antibiotics Dc planning Subjective ROS Limited/Unobtainable: No Constitutional: Reports: malaise Objective Objective Last 24 Hour Vital Signs Date Time Temp Pulse Resp B/P (MAP) Pulse Ox O2 Delivery O2 Flow Rate FiO2 06/16/17 08:53 162/93 06/16/17 08:00 97.5 75 20 162/93 95 06/16/17 08:00 78 06/16/17 04:00 97.4 56 18 122/53 96 Room Air 06/16/17 00:00 67 06/16/17 00:00 96.7 62 18 136/64 98 Room Air 06/15/17 20:56 96.5 59 18 142/75 98 Room Air 06/15/17 20:00 65 06/15/17 17:27 145/72 06/15/17 16:00 46 06/15/17 16:00 97.5 58 18 145/72 99 Room Air 06/15/17 12:00 63 06/15/17 12:00 96.3 58 20 146/92 97 Room Air Intake and Output 06/15/17 06/16/17 19:00 07:00 Intake Total 1655 ml Output Total 1000 ml 600 ml Balance 655 ml -600 ml Intake Oral 830 ml IV Total 825 ml Output Urine Total 1000 ml 600 ml # Voids 2 # Bowel Movements 1 Height (Feet): 5 Height (Inches): 9.00 Weight (Pounds): 137 General Appearance: no apparent distress Objective no change JACQUELINE HILL Jun 16, 2017 11:53
[2017-06-16 12:00] VITALS: BP 153/94
[2017-06-16 16:00] VITALS: BP 208/81
--- NOTE | 2017-06-16 19:38 | General Progress Note ---
Assessment/Plan Assessment/Plan ASSESSMENT AND RECOMMENDATIONS: 1. Thrombocytopenia, mild, will continue to monitor. Improving 2. Bacteremia on abx per ID service 3. Altered mental status 4. UTI 5. Encephalopathy 6. Dehydration 7. Deep venous thrombosis prophylaxis with heparin subcutaneous Subjective Allergies: Coded Allergies: No Known Allergies (Unverified , 06/11/17) All Systems: reviewed and negative except above Subjective NAD Objective Last 24 Hour Vital Signs Date Time Temp Pulse Resp B/P (MAP) Pulse Ox O2 Delivery O2 Flow Rate FiO2 06/16/17 16:41 208/81 06/16/17 16:00 97.5 72 20 208/81 96 Room Air 06/16/17 16:00 73 06/16/17 12:00 77 06/16/17 12:00 97.3 62 20 153/94 95 06/16/17 08:53 162/93 06/16/17 08:00 97.5 75 20 162/93 95 06/16/17 08:00 78 06/16/17 04:00 97.4 56 18 122/53 96 Room Air 06/16/17 00:00 67 06/16/17 00:00 96.7 62 18 136/64 98 Room Air 06/15/17 20:56 96.5 59 18 142/75 98 Room Air 06/15/17 20:00 65 Intake and Output 06/15/17 06/16/17 19:00 07:00 Intake Total 1655 ml 75 ml Output Total 1000 ml 600 ml Balance 655 ml -525 ml Intake Oral 830 ml IV Total 825 ml 75 ml Output Urine Total 1000 ml 600 ml # Voids 2 # Bowel Movements 1 Height (Feet): 5 Height (Inches): 9.00 Weight (Pounds): 137 Objective unchanged Sree Dubon Jun 16, 2017 19:38
[2017-06-16 19:59] VITALS: BP 167/81
[2017-06-17] VITALS (8 sets, daily range): BP systolic 108–152; BP diastolic 63–83
[2017-06-17 07:38] LABS: BASOPHILS % (AUTO) 1.3 % (0.0-2.0); EOSINOPHILS % (AUTO) 6.2 % (0.0-3.0); HEMATOCRIT 42.3 % (42.0-52.0); HEMOGLOBIN 14.6 G/DL (14.2-18.0); LYMPHOCYTES % (AUTO) 42.1 % (20.0-45.0); MEAN CORPUSCULAR VOLUME 95 FL (80-99); MONOCYTES % (AUTO) 9.4 % (1.0-10.0); PLATELET COUNT 212 K/UL (150-450); RED BLOOD COUNT 4.45 M/UL (4.70-6.10); RED CELL DISTRIBUTION WIDTH 11.5 % (11.6-14.8); WHITE BLOOD COUNT 6.4 K/UL (4.8-10.8)
[2017-06-17 08:03] LABS: ALANINE AMINOTRANSFERASE 13 U/L (12-78); ALBUMIN 2.4 G/DL (3.4-5.0); ALBUMIN/GLOBULIN RATIO 0.7 (1.0-2.7); ALKALINE PHOSPHATASE 75 U/L (46-116); ANION GAP 5 mmol/L (5-15); ASPARTATE AMINO TRANSFERASE 21 U/L (15-37); BILIRUBIN,TOTAL 0.4 MG/DL (0.2-1.0); BLOOD UREA NITROGEN 13 mg/dL (7-18); CALCIUM 7.5 MG/DL (8.5-10.1); CARBON DIOXIDE 28 MMOL/L (21-32); CHLORIDE 110 MMOL/L (98-107); CREATININE 0.8 MG/DL (0.55-1.30); POTASSIUM 4.2 MMOL/L (3.5-5.1); SODIUM 143 MMOL/L (136-145)
--- NOTE | 2017-06-17 08:29 | Infectious Diseases Prog Note ---
Assessment/Plan Assessment/Plan A: UTI with Enterococcus Positive blood culture with CoaNS likely contamination COPD Dementia s/p CVA P: continue Amoxicillin X 2 days Subjective ROS Limited/Unobtainable: Yes Respiratory: Reports: no symptoms Genitourinary: Reports: no symptoms Allergies: Coded Allergies: No Known Allergies (Unverified , 06/11/17) Objective Vital Signs Last 24 Hour Vital Signs Date Time Temp Pulse Resp B/P (MAP) Pulse Ox O2 Delivery O2 Flow Rate FiO2 06/17/17 08:00 98.4 62 20 152/71 94 Room Air 06/17/17 07:39 97.9 75 19 143/82 96 06/17/17 03:42 97.3 35 20 135/69 97 Room Air 06/17/17 00:53 97.8 72 20 141/83 95 Room Air 06/16/17 19:59 97.7 75 20 167/81 95 Room Air 06/16/17 16:41 208/81 06/16/17 16:00 97.5 72 20 208/81 96 Room Air 06/16/17 16:00 73 06/16/17 12:00 77 06/16/17 12:00 97.3 62 20 153/94 95 06/16/17 08:53 162/93 Height (Feet): 5 Height (Inches): 9.00 Weight (Pounds): 137 General Appearance: no acute distress HEENT: mucous membranes moist Respiratory/Chest: lungs clear Cardiovascular: normal rate Abdomen: soft, non tender Extremities: no edema Neurologic/Psychiatric: alert, responsive Laboratory Tests Test 06/17/17 05:00 White Blood Count 6.4 K/UL (4.8-10.8) Red Blood Count 4.45 M/UL (4.70-6.10) L Hemoglobin 14.6 G/DL (14.2-18.0) Hematocrit 42.3 % (42.0-52.0) Mean Corpuscular Volume 95 FL (80-99) Mean Corpuscular Hemoglobin 32.9 PG (27.0-31.0) H Mean Corpuscular Hemoglobin Concent 34.6 G/DL (32.0-36.0) Red Cell Distribution Width 11.5 % (11.6-14.8) L Platelet Count 212 K/UL (150-450) Mean Platelet Volume 6.8 FL (6.5-10.1) Neutrophils (%) (Auto) 41.0 % (45.0-75.0) L Lymphocytes (%) (Auto) 42.1 % (20.0-45.0) Monocytes (%) (Auto) 9.4 % (1.0-10.0) Eosinophils (%) (Auto) 6.2 % (0.0-3.0) H Basophils (%) (Auto) 1.3 % (0.0-2.0) Sodium Level 143 MMOL/L (136-145) Potassium Level 4.2 MMOL/L (3.5-5.1) Chloride Level 110 MMOL/L (98-107) H Carbon Dioxide Level 28 MMOL/L (21-32) Anion Gap 5 mmol/L (5-15) Blood Urea Nitrogen 13 mg/dL (7-18) Creatinine 0.8 MG/DL (0.55-1.30) Estimat Glomerular Filtration Rate mL/min (>60) Glucose Level 119 MG/DL (74-106) H Calcium Level 7.5 MG/DL (8.5-10.1) L Phosphorus Level 3.0 MG/DL (2.5-4.9) Magnesium Level 1.9 MG/DL (1.8-2.4) Total Bilirubin 0.4 MG/DL (0.2-1.0) Aspartate Amino Transf (AST/SGOT) 21 U/L (15-37) Alanine Aminotransferase (ALT/SGPT) 13 U/L (12-78) Alkaline Phosphatase 75 U/L (46-116) Total Protein 5.9 G/DL (6.4-8.2) L Albumin 2.4 G/DL (3.4-5.0) L Globulin 3.5 g/dL Albumin/Globulin Ratio 0.7 (1.0-2.7) L Current Medications Medications (Trade) Dose Ordered Sig/Lopez Route PRN Reason Start Time Stop Time Status Last Admin Dose Admin Acetaminophen (Tylenol) 650 mg Q4H PRN ORAL Mild Pain/Temp > 100.5 06/12/17 07:30 07/12/17 07:29 06/15/17 03:54 Amoxicillin (Amoxil) 250 mg EVERY 8 HOURS ORAL 06/14/17 14:00 06/21/17 13:59 06/16/17 23:54 Ascorbic Acid (Vitamin C) 500 mg DAILY ORAL 06/12/17 09:00 07/12/17 08:59 06/16/17 08:53 Aspirin (ASA) 81 mg DAILY ORAL 06/12/17 09:00 07/12/17 08:59 06/16/17 08:51 Benazepril HCl (Lotensin) 20 mg BID ORAL 06/12/17 09:00 07/12/17 08:59 06/16/17 16:41 Dextrose 1,000 ml @ 75 mls/hr [id number] IV 06/14/17 17:00 07/14/17 16:59 06/16/17 22:20 Folic Acid (Folate) 1 mg DAILY ORAL 06/12/17 09:00 07/12/17 08:59 06/16/17 08:53 Heparin Sodium (Porcine) (Heparin 5000 units/ml) 5,000 units EVERY 12 HOURS SUBQ 06/13/17 21:00 07/13/17 20:59 06/15/17 20:43 Lorazepam (Ativan) 0.5 mg Q6H PRN ORAL For Anxiety 06/12/17 07:30 06/19/17 07:29 Magnesium Hydroxide (Mom) 30 ml Q6HR PRN ORAL Constipation 06/12/17 07:30 07/12/17 07:29 Multivitamins (Multivitamins) 1 tab DAILY ORAL 06/12/17 09:00 07/12/17 08:59 06/16/17 08:51 Olanzapine (ZyPREXA) 5 mg QHS ORAL 06/13/17 21:00 07/12/17 08:59 06/16/17 21:00 Temazepam (Restoril) 15 mg HSPRN PRN ORAL Insomnia 06/12/17 07:30 06/19/17 07:29 ANTHONY BUCKLEY Jun 17, 2017 08:29
[2017-06-17] MEDS: Ascorbic Acid 500mg tab ORAL SCH (08:55)
[2017-06-17] MEDS: Aspirin Baby 81mg ORAL SCH (08:55)
[2017-06-17] MEDS: Heparin 5000 units/ml inj SUBQ SCH ×2 (08:56→21:00)
--- NOTE | 2017-06-17 10:32 | Nephrology Progress Note ---
Assessment/Plan Problem List: (1) Urinary tract infection (2) Altered level of consciousness (3) CVA, old, hemiparesis (4) lethargy, 2/2metabolic encephalopathy/UTI (5) Hypernatremia Assessment Encephalopathy Urinary tract infection CVA, old, hemiparesis Hypernatremia / dehydration Plan DC IV fluid K supplement Adjust mind altering meds monitor renal parameters Antibiotics DC planning Subjective ROS Limited/Unobtainable: No Constitutional: Reports: malaise Objective Objective Last 24 Hour Vital Signs Date Time Temp Pulse Resp B/P (MAP) Pulse Ox O2 Delivery O2 Flow Rate FiO2 06/17/17 08:55 152/71 06/17/17 08:00 98.4 62 20 152/71 94 Room Air 06/17/17 07:39 97.9 75 19 143/82 96 06/17/17 04:00 65 06/17/17 03:42 97.3 35 20 135/69 97 Room Air 06/17/17 00:53 97.8 72 20 141/83 95 Room Air 06/17/17 00:00 72 06/16/17 20:00 72 06/16/17 19:59 97.7 75 20 167/81 95 Room Air 06/16/17 16:41 208/81 06/16/17 16:00 97.5 72 20 208/81 96 Room Air 06/16/17 16:00 73 06/16/17 12:00 77 06/16/17 12:00 97.3 62 20 153/94 95 Intake and Output 06/16/17 06/17/17 19:00 07:00 Intake Total 650 ml Output Total 1500 ml 850 ml Balance -850 ml -850 ml Intake Oral 200 ml IV Total 450 ml Output Urine Total 1500 ml 850 ml # Voids 1 # Bowel Movements 1 Laboratory Tests 06/17/17 05:00: White Blood Count 6.4, Red Blood Count 4.45L, Hemoglobin 14.6, Hematocrit 42.3, Mean Corpuscular Volume 95, Mean Corpuscular Hemoglobin 32.9H, Mean Corpuscular Hemoglobin Concent 34.6, Red Cell Distribution Width 11.5L, Platelet Count 212, Mean Platelet Volume 6.8, Neutrophils (%) (Auto) 41.0L, Lymphocytes (%) (Auto) 42.1, Monocytes (%) (Auto) 9.4, Eosinophils (%) (Auto) 6.2H, Basophils (%) (Auto ) 1.3, Sodium Level 143, Potassium Level 4.2, Chloride Level 110H, Carbon Dioxide Level 28, Anion Gap 5, Blood Urea Nitrogen 13, Creatinine 0.8, Estimat Glomerular Filtration Rate , Glucose Level 119H, Calcium Level 7.5L, Phosphorus Level 3.0, Magnesium Level 1.9, Total Bilirubin 0.4, Aspartate Amino Transf (AST /SGOT) 21, Alanine Aminotransferase (ALT/SGPT) 13, Alkaline Phosphatase 75, Total Protein 5.9L, Albumin 2.4L, Globulin 3.5, Albumin/Globulin Ratio 0.7L Height (Feet): 5 Height (Inches): 9.00 Weight (Pounds): 137 General Appearance: no apparent distress Objective no change JACQUELINE HILL Jun 17, 2017 10:32
[2017-06-17] MEDS ORDERED: Tubing IV Secondary IV ONE (17:04)
--- NOTE | 2017-06-17 18:47 | General Progress Note ---
Assessment/Plan Assessment/Plan ASSESSMENT AND RECOMMENDATIONS: 1. Thrombocytopenia, mild, will continue to monitor. Improving 2. Bacteremia on abx per ID service 3. Altered mental status 4. UTI 5. Encephalopathy 6. Dehydration 7. Deep venous thrombosis prophylaxis with heparin subcutaneous Subjective Allergies: Coded Allergies: No Known Allergies (Unverified , 06/11/17) All Systems: reviewed and negative except above Subjective NAD Objective Last 24 Hour Vital Signs Date Time Temp Pulse Resp B/P (MAP) Pulse Ox O2 Delivery O2 Flow Rate FiO2 06/17/17 17:37 112/69 06/17/17 16:00 62 06/17/17 15:40 98.6 69 19 112/69 97 06/17/17 12:00 98.7 64 19 108/63 96 Room Air 06/17/17 12:00 77 06/17/17 11:41 98.7 64 19 108/63 96 06/17/17 08:55 152/71 06/17/17 08:00 67 06/17/17 08:00 98.4 62 20 152/71 94 Room Air 06/17/17 07:39 97.9 75 19 143/82 96 06/17/17 04:00 65 06/17/17 03:42 97.3 35 20 135/69 97 Room Air 06/17/17 00:53 97.8 72 20 141/83 95 Room Air 06/17/17 00:00 72 06/16/17 20:00 72 06/16/17 19:59 97.7 75 20 167/81 95 Room Air Intake and Output 06/16/17 06/17/17 19:00 07:00 Intake Total 650 ml Output Total 1500 ml 850 ml Balance -850 ml -850 ml Intake Oral 200 ml IV Total 450 ml Output Urine Total 1500 ml 850 ml # Voids 1 # Bowel Movements 1 Laboratory Tests 06/17/17 05:00: White Blood Count 6.4, Red Blood Count 4.45L, Hemoglobin 14.6, Hematocrit 42.3, Mean Corpuscular Volume 95, Mean Corpuscular Hemoglobin 32.9H, Mean Corpuscular Hemoglobin Concent 34.6, Red Cell Distribution Width 11.5L, Platelet Count 212, Mean Platelet Volume 6.8, Neutrophils (%) (Auto) 41.0L, Lymphocytes (%) (Auto) 42.1, Monocytes (%) (Auto) 9.4, Eosinophils (%) (Auto) 6.2H, Basophils (%) (Auto ) 1.3, Sodium Level 143, Potassium Level 4.2, Chloride Level 110H, Carbon Dioxide Level 28, Anion Gap 5, Blood Urea Nitrogen 13, Creatinine 0.8, Estimat Glomerular Filtration Rate , Glucose Level 119H, Calcium Level 7.5L, Phosphorus Level 3.0, Magnesium Level 1.9, Total Bilirubin 0.4, Aspartate Amino Transf (AST /SGOT) 21, Alanine Aminotransferase (ALT/SGPT) 13, Alkaline Phosphatase 75, Total Protein 5.9L, Albumin 2.4L, Globulin 3.5, Albumin/Globulin Ratio 0.7L Height (Feet): 5 Height (Inches): 9.00 Weight (Pounds): 137 General Appearance: no apparent distress EENT: normal ENT inspection Neck: normal alignment Cardiovascular: normal peripheral pulses Respiratory/Chest: chest wall non-tender Abdomen: no organomegaly Edema: trace edema Objective unchanged Sree Dubon Jun 17, 2017 18:47
[2017-06-18] VITALS: BP 143/67
[2017-06-18 04:00] VITALS: BP 132/84
[2017-06-18 08:00] VITALS: BP 148/68
--- NOTE | 2017-06-18 09:07 | Infectious Diseases Prog Note ---
Assessment/Plan Assessment/Plan A: UTI with Enterococcus Positive blood culture with CoaNS likely contamination COPD Dementia s/p CVA P: continue Amoxicillin X 1 day Subjective ROS Limited/Unobtainable: Yes Allergies: Coded Allergies: No Known Allergies (Unverified , 06/11/17) Objective Vital Signs Last 24 Hour Vital Signs Date Time Temp Pulse Resp B/P (MAP) Pulse Ox O2 Delivery O2 Flow Rate FiO2 06/18/17 04:00 65 06/18/17 04:00 96.3 65 20 132/84 98 Room Air 06/18/17 00:00 59 06/18/17 00:00 97.9 52 16 143/67 100 Room Air 06/17/17 20:00 96.4 58 16 120/66 95 Room Air 06/17/17 20:00 68 06/17/17 17:37 112/69 06/17/17 16:00 62 06/17/17 15:40 98.6 69 19 112/69 97 06/17/17 12:00 98.7 64 19 108/63 96 Room Air 06/17/17 12:00 77 06/17/17 11:41 98.7 64 19 108/63 96 Height (Feet): 5 Height (Inches): 9.00 Weight (Pounds): 137 General Appearance: no acute distress HEENT: mucous membranes moist Respiratory/Chest: lungs clear Cardiovascular: normal rate Abdomen: soft, non tender Genitourinary: other - Contreras catheter Extremities: no edema Neurologic/Psychiatric: other - sleeping Current Medications Medications (Trade) Dose Ordered Sig/Lopez Route PRN Reason Start Time Stop Time Status Last Admin Dose Admin Acetaminophen (Tylenol) 650 mg Q4H PRN ORAL Mild Pain/Temp > 100.5 06/12/17 07:30 07/12/17 07:29 06/15/17 03:54 Amoxicillin (Amoxil) 250 mg EVERY 8 HOURS ORAL 06/14/17 14:00 06/21/17 13:59 06/18/17 06:00 Ascorbic Acid (Vitamin C) 500 mg DAILY ORAL 06/12/17 09:00 07/12/17 08:59 06/17/17 08:55 Aspirin (ASA) 81 mg DAILY ORAL 06/12/17 09:00 07/12/17 08:59 06/17/17 08:55 Benazepril HCl (Lotensin) 20 mg BID ORAL 06/12/17 09:00 07/12/17 08:59 06/17/17 17:37 Heparin Sodium (Porcine) (Heparin 5000 units/ml) 5,000 units EVERY 12 HOURS SUBQ 06/13/17 21:00 07/13/17 20:59 06/17/17 21:00 Lorazepam (Ativan) 0.5 mg Q6H PRN ORAL For Anxiety 06/12/17 07:30 06/19/17 07:29 Magnesium Hydroxide (Mom) 30 ml Q6HR PRN ORAL Constipation 06/12/17 07:30 07/12/17 07:29 Multivitamins (Multivitamins) 1 tab DAILY ORAL 06/12/17 09:00 07/12/17 08:59 06/17/17 08:55 Olanzapine (ZyPREXA) 5 mg QHS ORAL 06/13/17 21:00 07/12/17 08:59 06/17/17 21:00 Temazepam (Restoril) 15 mg HSPRN PRN ORAL Insomnia 06/12/17 07:30 06/19/17 07:29 ANTHONY BUCKLEY Jun 18, 2017 09:06
[2017-06-18] MEDS: Ascorbic Acid 500mg tab ORAL SCH (09:23)
[2017-06-18] MEDS: Aspirin Baby 81mg ORAL SCH (09:23)
[2017-06-18] MEDS: Heparin 5000 units/ml inj SUBQ SCH ×2 (09:25→20:32)
[2017-06-18 12:00] VITALS: BP 135/78
--- NOTE | 2017-06-18 15:06 | Nephrology Progress Note ---
Assessment/Plan Problem List: (1) Urinary tract infection (2) Altered level of consciousness (3) CVA, old, hemiparesis (4) lethargy, 2/2metabolic encephalopathy/UTI (5) Hypernatremia Assessment Encephalopathy Urinary tract infection CVA, old, hemiparesis Hypernatremia / dehydration Plan DC IV fluid K supplement Adjust mind altering meds monitor renal parameters Antibiotics DC planning Subjective ROS Limited/Unobtainable: No Constitutional: Reports: malaise Objective Objective Last 24 Hour Vital Signs Date Time Temp Pulse Resp B/P (MAP) Pulse Ox O2 Delivery O2 Flow Rate FiO2 06/18/17 12:00 59 06/18/17 12:00 97.7 61 18 135/78 96 Room Air 06/18/17 09:23 148/68 06/18/17 08:00 61 06/18/17 08:00 97.2 65 18 148/68 95 Room Air 06/18/17 04:00 65 06/18/17 04:00 96.3 65 20 132/84 98 Room Air 06/18/17 00:00 59 06/18/17 00:00 97.9 52 16 143/67 100 Room Air 06/17/17 20:00 96.4 58 16 120/66 95 Room Air 06/17/17 20:00 68 06/17/17 17:37 112/69 06/17/17 16:00 62 06/17/17 15:40 98.6 69 19 112/69 97 Intake and Output 06/17/17 06/18/17 19:00 07:00 Intake Total 570 ml 400 ml Output Total 300 ml 500 ml Balance 270 ml -100 ml Intake Oral 570 ml 400 ml Output Urine Total 300 ml 500 ml # Voids 1 Height (Feet): 5 Height (Inches): 9.00 Weight (Pounds): 137 General Appearance: no apparent distress Objective no change JACQUELINE HILL Jun 18, 2017 15:06
[2017-06-18 16:00] VITALS: BP 127/74
--- NOTE | 2017-06-18 19:17 | General Progress Note ---
Assessment/Plan Assessment/Plan ASSESSMENT AND RECOMMENDATIONS: 1. Thrombocytopenia, mild, will continue to monitor. --> now has improved 2. Bacteremia on abx per ID service, coa negative sh --> liky contaminant per ID 3. Altered mental status/encephalopathy 4. UTI enerococcus 5. Encephalopathy 6. Dehydration 7. Deep venous thrombosis prophylaxis with heparin subcutaneous Subjective Constitutional: Denies: no symptoms, chills, diaphoresis, fever, malaise, weakness, other HEENT: Denies: no symptoms, eye pain, blurred vision, tearing, double vision, ear pain, ear discharge, nose pain, nose congestion, throat pain, throat swelling, mouth pain, mouth swelling, other Cardiovascular: Denies: no symptoms, chest pain, edema, irregular heart rate, lightheadedness, palpitations, syncope, other Respiratory: Denies: no symptoms, cough, orthopnea, shortness of breath, SOB with excertion, SOB at rest, sputum, stridor, wheezing, other Gastrointestinal/Abdominal: Denies: no symptoms, abdomen distended, abdominal pain, black stools, tarry stools, blood in stool, constipated, diarrhea, difficulty swallowing, nausea, poor appetite, poor fluid intake, rectal bleeding , vomiting, other Genitourinary: Denies: no symptoms, burning, discharge, frequency, flank pain, hematuria, incontinence, pain, urgency, other Neurologic/Psychiatric: Denies: no symptoms, anxiety, depressed, emotional problems, headache, numbness, paresthesia, pre-existing deficit, seizure, tingling, tremors, weakness, other Hematologic/Lymphatic: Denies: no symptoms, anemia, easy bleeding, easy bruising, other Allergies: Coded Allergies: No Known Allergies (Unverified , 06/11/17) Subjective NAD Objective Last 24 Hour Vital Signs Date Time Temp Pulse Resp B/P (MAP) Pulse Ox O2 Delivery O2 Flow Rate FiO2 06/18/17 17:07 127/74 06/18/17 16:00 97.7 53 18 127/74 95 Room Air 06/18/17 16:00 63 06/18/17 12:00 59 06/18/17 12:00 97.7 61 18 135/78 96 Room Air 06/18/17 09:23 148/68 06/18/17 08:00 61 06/18/17 08:00 97.2 65 18 148/68 95 Room Air 06/18/17 04:00 65 06/18/17 04:00 96.3 65 20 132/84 98 Room Air 06/18/17 00:00 59 06/18/17 00:00 97.9 52 16 143/67 100 Room Air 06/17/17 20:00 96.4 58 16 120/66 95 Room Air 06/17/17 20:00 68 Intake and Output 06/17/17 06/18/17 19:00 07:00 Intake Total 570 ml 400 ml Output Total 300 ml 500 ml Balance 270 ml -100 ml Intake Oral 570 ml 400 ml Output Urine Total 300 ml 500 ml # Voids 1 Height (Feet): 5 Height (Inches): 9.00 Weight (Pounds): 137 General Appearance: no apparent distress EENT: normal ENT inspection Neck: normal alignment Cardiovascular: regular rhythm Respiratory/Chest: normal breath sounds Abdomen: soft Extremities: non-tender Objective unchanged Sree Dubon Jun 18, 2017 19:17
[2017-06-18 20:00] VITALS: BP 151/92
--- NOTE | 2017-06-18 20:06 | General Progress Note ---
Assessment/Plan Problem List: (1) Urinary tract infection ICD Codes: N39.0 - Urinary tract infection, site not specified SNOMED: 47507326 (2) Altered level of consciousness ICD Codes: R40.4 - Transient alteration of awareness SNOMED: 9351926 (3) CVA, old, hemiparesis ICD Codes: I69.359 - Hemiplegia and hemiparesis following cerebral infarction affecting unspecified side SNOMED: 031247956 (4) lethargy, 2/2metabolic encephalopathy/UTI (5) Hypernatremia ICD Codes: E87.0 - Hyperosmolality and hypernatremia SNOMED: 76855715 Status: progressing Assessment/Plan confused old cva dehydrated uti afebrile most likely ams is due to metabolic causes Subjective ROS Limited/Unobtainable: Yes Allergies: Coded Allergies: No Known Allergies (Unverified , 06/11/17) Objective Last 24 Hour Vital Signs Date Time Temp Pulse Resp B/P (MAP) Pulse Ox O2 Delivery O2 Flow Rate FiO2 06/18/17 17:07 127/74 06/18/17 16:00 97.7 53 18 127/74 95 Room Air 06/18/17 16:00 63 06/18/17 12:00 59 06/18/17 12:00 97.7 61 18 135/78 96 Room Air 06/18/17 09:23 148/68 06/18/17 08:00 61 06/18/17 08:00 97.2 65 18 148/68 95 Room Air 06/18/17 04:00 65 06/18/17 04:00 96.3 65 20 132/84 98 Room Air 06/18/17 00:00 59 06/18/17 00:00 97.9 52 16 143/67 100 Room Air Intake and Output 06/17/17 06/18/17 19:00 07:00 Intake Total 570 ml 400 ml Output Total 300 ml 500 ml Balance 270 ml -100 ml Intake Oral 570 ml 400 ml Output Urine Total 300 ml 500 ml # Voids 1 Height (Feet): 5 Height (Inches): 9.00 Weight (Pounds): 137 General Appearance: confused Kaylen Hicks MD Jun 18, 2017 20:06
--- NOTE | 2017-06-18 22:31 | General Progress Note ---
Assessment/Plan Status: stable, progressing Assessment/Plan encephalopathy cont current meds Subjective Date patient seen: Jun 16, 2017 Neurologic/Psychiatric: Reports: anxiety, depressed Allergies: Coded Allergies: No Known Allergies (Unverified , 06/11/17) Subjective the pt was still confused more engaged. Objective Last 24 Hour Vital Signs Date Time Temp Pulse Resp B/P (MAP) Pulse Ox O2 Delivery O2 Flow Rate FiO2 06/18/17 20:00 97.3 61 20 151/92 99 06/18/17 17:07 127/74 06/18/17 16:00 97.7 53 18 127/74 95 Room Air 06/18/17 16:00 63 06/18/17 12:00 59 06/18/17 12:00 97.7 61 18 135/78 96 Room Air 06/18/17 09:23 148/68 06/18/17 08:00 61 06/18/17 08:00 97.2 65 18 148/68 95 Room Air 06/18/17 04:00 65 06/18/17 04:00 96.3 65 20 132/84 98 Room Air 06/18/17 00:00 59 06/18/17 00:00 97.9 52 16 143/67 100 Room Air Intake and Output 06/17/17 06/18/17 19:00 07:00 Intake Total 570 ml 400 ml Output Total 300 ml 500 ml Balance 270 ml -100 ml Intake Oral 570 ml 400 ml Output Urine Total 300 ml 500 ml # Voids 1 Height (Feet): 5 Height (Inches): 9.00 Weight (Pounds): 137 General Appearance: alert Neurologic: alert, responsive, depressed affect Oswaldo Engel M.D. Jun 18, 2017 22:31
--- NOTE | 2017-06-18 22:32 | Geriatric Progress Note ---
Subjective Interval Events 06/17/17 Mood/Memory: Reports: prior hx, anxiety, depressed feelings Geriatric Geriatric Last 24 Hour Vital Signs Date Time Temp Pulse Resp B/P (MAP) Pulse Ox O2 Delivery O2 Flow Rate FiO2 06/18/17 20:00 97.3 61 20 151/92 99 06/18/17 17:07 127/74 06/18/17 16:00 97.7 53 18 127/74 95 Room Air 06/18/17 16:00 63 06/18/17 12:00 59 06/18/17 12:00 97.7 61 18 135/78 96 Room Air 06/18/17 09:23 148/68 06/18/17 08:00 61 06/18/17 08:00 97.2 65 18 148/68 95 Room Air 06/18/17 04:00 65 06/18/17 04:00 96.3 65 20 132/84 98 Room Air 06/18/17 00:00 59 06/18/17 00:00 97.9 52 16 143/67 100 Room Air Intake and Output 06/17/17 06/18/17 19:00 07:00 Intake Total 570 ml 400 ml Output Total 300 ml 500 ml Balance 270 ml -100 ml Intake Oral 570 ml 400 ml Output Urine Total 300 ml 500 ml # Voids 1 Current Medications Medications (Trade) Dose Ordered Sig/Lopez Route PRN Reason Start Time Stop Time Status Last Admin Dose Admin Acetaminophen (Tylenol) 650 mg Q4H PRN ORAL Mild Pain/Temp > 100.5 06/12/17 07:30 07/12/17 07:29 06/15/17 03:54 Amoxicillin (Amoxil) 250 mg EVERY 8 HOURS ORAL 06/14/17 14:00 06/21/17 13:59 06/18/17 22:08 Ascorbic Acid (Vitamin C) 500 mg DAILY ORAL 06/12/17 09:00 07/12/17 08:59 06/18/17 09:23 Aspirin (ASA) 81 mg DAILY ORAL 06/12/17 09:00 07/12/17 08:59 06/18/17 09:23 Benazepril HCl (Lotensin) 20 mg BID ORAL 06/12/17 09:00 07/12/17 08:59 06/18/17 17:07 Heparin Sodium (Porcine) (Heparin 5000 units/ml) 5,000 units EVERY 12 HOURS SUBQ 06/13/17 21:00 07/13/17 20:59 06/18/17 20:32 Lorazepam (Ativan) 0.5 mg Q6H PRN ORAL For Anxiety 06/12/17 07:30 06/19/17 07:29 Magnesium Hydroxide (Mom) 30 ml Q6HR PRN ORAL Constipation 06/12/17 07:30 07/12/17 07:29 Multivitamins (Multivitamins) 1 tab DAILY ORAL 06/12/17 09:00 07/12/17 08:59 06/18/17 09:23 Olanzapine (ZyPREXA) 5 mg QHS ORAL 06/13/17 21:00 07/12/17 08:59 06/18/17 20:29 Temazepam (Restoril) 15 mg HSPRN PRN ORAL Insomnia 06/12/17 07:30 06/19/17 07:29 06/18/17 20:29 Height (Feet): 5 Height (Inches): 9.00 Weight (Pounds): 137 General Appearance: alert Oswaldo Engel M.D. Jun 18, 2017 22:31
[2017-06-19] VITALS: BP 143/73
[2017-06-19 04:02] VITALS: BP 133/88
[2017-06-19 08:00] VITALS: BP 151/88
[2017-06-19] MEDS: Aspirin Baby 81mg ORAL SCH (09:59)
[2017-06-19] MEDS: Ascorbic Acid 500mg tab ORAL SCH (09:59)
[2017-06-19] MEDS: Heparin 5000 units/ml inj SUBQ SCH ×2 (10:02→21:59)
--- NOTE | 2017-06-19 10:57 | Infectious Diseases Prog Note ---
Assessment/Plan Assessment/Plan antibiotics : amoxicillin A 1. enterococcus UTI s/p rx 2. + blood culture with coag neg staph likely contaminated 3. COPD 4. dementia 5. CVA P 1. d/c amoxicillin 2. observe off antibiotics Subjective ROS Limited/Unobtainable: Yes Allergies: Coded Allergies: No Known Allergies (Unverified , 06/11/17) Objective Vital Signs Last 24 Hour Vital Signs Date Time Temp Pulse Resp B/P (MAP) Pulse Ox O2 Delivery O2 Flow Rate FiO2 06/19/17 09:59 151/88 06/19/17 08:00 97.9 62 18 151/88 96 06/19/17 04:02 97.3 65 20 133/88 97 06/19/17 04:00 65 06/19/17 00:00 72 06/19/17 00:00 97.0 65 20 143/73 97 06/18/17 20:00 97.3 61 20 151/92 99 06/18/17 20:00 71 06/18/17 17:07 127/74 06/18/17 16:00 97.7 53 18 127/74 95 Room Air 06/18/17 16:00 63 06/18/17 12:00 59 06/18/17 12:00 97.7 61 18 135/78 96 Room Air Height (Feet): 5 Height (Inches): 9.00 Weight (Pounds): 137 Respiratory/Chest: lungs clear Cardiovascular: normal rate, regular rhythm, no gallop/murmur Abdomen: soft, non tender Extremities: no edema YUE CAMILO Jun 19, 2017 10:57
[2017-06-19 12:00] VITALS: BP 155/102
--- NOTE | 2017-06-19 12:20 | Geriatric Progress Note ---
Assessment/Plan Assessment/Plan encephalopathy cognitive impairment cont current meds Discussed with: patient Subjective Interval Events 06/19/17 Mood/Memory: Reports: prior hx - the pt is calm. psychomotor retardation. cognitive impairment the pt is disorinted. Geriatric Geriatric Last 24 Hour Vital Signs Date Time Temp Pulse Resp B/P (MAP) Pulse Ox O2 Delivery O2 Flow Rate FiO2 06/19/17 09:59 151/88 06/19/17 08:00 97.9 62 18 151/88 96 06/19/17 04:02 97.3 65 20 133/88 97 06/19/17 04:00 65 06/19/17 00:00 72 06/19/17 00:00 97.0 65 20 143/73 97 06/18/17 20:00 97.3 61 20 151/92 99 06/18/17 20:00 71 06/18/17 17:07 127/74 06/18/17 16:00 97.7 53 18 127/74 95 Room Air 06/18/17 16:00 63 Intake and Output 06/18/17 06/19/17 19:00 07:00 Intake Total 900 ml Output Total 600 ml 700 ml Balance 300 ml -700 ml Intake Oral 900 ml Output Urine Total 600 ml 700 ml # Voids 3 # Bowel Movements 1 Current Medications Medications (Trade) Dose Ordered Sig/Lopez Route PRN Reason Start Time Stop Time Status Last Admin Dose Admin Acetaminophen (Tylenol) 650 mg Q4H PRN ORAL Mild Pain/Temp > 100.5 06/12/17 07:30 07/12/17 07:29 06/15/17 03:54 Ascorbic Acid (Vitamin C) 500 mg DAILY ORAL 06/12/17 09:00 07/12/17 08:59 06/19/17 09:59 Aspirin (ASA) 81 mg DAILY ORAL 06/12/17 09:00 07/12/17 08:59 06/19/17 09:59 Benazepril HCl (Lotensin) 20 mg BID ORAL 06/12/17 09:00 07/12/17 08:59 06/19/17 09:59 Heparin Sodium (Porcine) (Heparin 5000 units/ml) 5,000 units EVERY 12 HOURS SUBQ 06/13/17 21:00 07/13/17 20:59 06/19/17 10:02 Magnesium Hydroxide (Mom) 30 ml Q6HR PRN ORAL Constipation 12/26/17 07:30 07/12/17 07:29 Multivitamins (Multivitamins) 1 tab DAILY ORAL 06/12/17 09:00 07/12/17 08:59 06/19/17 09:59 Olanzapine (ZyPREXA) 5 mg QHS ORAL 06/13/17 21:00 07/12/17 08:59 06/18/17 20:29 Height (Feet): 5 Height (Inches): 9.00 Weight (Pounds): 137 General Appearance: well appearing, no apparent distress, alert Oswaldo Engel M.D. Jun 19, 2017 12:20
--- NOTE | 2017-06-19 13:32 | General Progress Note ---
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 ,L spastic hemiparesis, vascular dementia (5) lethargy, 2/2metabolic encephalopathy/UTI (6) Hypernatremia ICD Codes: E87.0 - Hyperosmolality and hypernatremia SNOMED: 69231710 Status: stable, progressing Assessment/Plan ot pt diet cbc bmp am dc plan Subjective Constitutional: Reports: weakness Allergies: Coded Allergies: No Known Allergies (Unverified , 06/11/17) All Systems: reviewed and negative except above Subjective lethargic confused Objective Last 24 Hour Vital Signs Date Time Temp Pulse Resp B/P (MAP) Pulse Ox O2 Delivery O2 Flow Rate FiO2 06/19/17 12:00 97.7 65 18 155/102 95 06/19/17 09:59 151/88 06/19/17 08:00 97.9 62 18 151/88 96 06/19/17 04:02 97.3 65 20 133/88 97 06/19/17 04:00 65 06/19/17 00:00 72 06/19/17 00:00 97.0 65 20 143/73 97 06/18/17 20:00 97.3 61 20 151/92 99 06/18/17 20:00 71 06/18/17 17:07 127/74 06/18/17 16:00 97.7 53 18 127/74 95 Room Air 06/18/17 16:00 63 Intake and Output 06/18/17 06/19/17 19:00 07:00 Intake Total 900 ml Output Total 600 ml 700 ml Balance 300 ml -700 ml Intake Oral 900 ml Output Urine Total 600 ml 700 ml # Voids 3 # Bowel Movements 1 Height (Feet): 5 Height (Inches): 9.00 Weight (Pounds): 137 General Appearance: lethargic, confused EENT: normal ENT inspection Neck: normal alignment Cardiovascular: normal peripheral pulses, normal rate, regular rhythm Respiratory/Chest: chest wall non-tender, lungs clear, normal breath sounds Abdomen: normal bowel sounds, non tender, soft Extremities: normal inspection Edema: no edema noted Arm (L), no edema noted Arm (R), no edema noted Leg (L), no edema noted Leg (R), no edema noted Pedal (L), no edema noted Pedal (R), no edema noted Generalized Neurologic: motor weakness Skin: normal pigmentation, warm/dry MADDIE AMATO Jun 19, 2017 13:32
--- NOTE | 2017-06-19 15:07 | Nephrology Progress Note ---
Assessment/Plan Problem List: (1) Urinary tract infection (2) Altered level of consciousness (3) CVA, old, hemiparesis (4) lethargy, 2/2metabolic encephalopathy/UTI (5) Hypernatremia Assessment Encephalopathy Urinary tract infection CVA, old, hemiparesis Hypernatremia / dehydration Plan DC IV fluid K supplement Adjust mind altering meds monitor renal parameters Antibiotics DC planning Subjective ROS Limited/Unobtainable: No Constitutional: Reports: malaise Objective Objective Last 24 Hour Vital Signs Date Time Temp Pulse Resp B/P (MAP) Pulse Ox O2 Delivery O2 Flow Rate FiO2 06/19/17 12:00 97.7 65 18 155/102 95 06/19/17 09:59 151/88 06/19/17 08:00 97.9 62 18 151/88 96 06/19/17 04:02 97.3 65 20 133/88 97 06/19/17 04:00 65 06/19/17 00:00 72 06/19/17 00:00 97.0 65 20 143/73 97 06/18/17 20:00 97.3 61 20 151/92 99 06/18/17 20:00 71 06/18/17 17:07 127/74 06/18/17 16:00 97.7 53 18 127/74 95 Room Air 06/18/17 16:00 63 Intake and Output 06/18/17 06/19/17 19:00 07:00 Intake Total 900 ml Output Total 600 ml 700 ml Balance 300 ml -700 ml Intake Oral 900 ml Output Urine Total 600 ml 700 ml # Voids 3 # Bowel Movements 1 Height (Feet): 5 Height (Inches): 9.00 Weight (Pounds): 137 General Appearance: no apparent distress Objective no change JACQUELINE HILL Jun 19, 2017 15:07
--- NOTE | 2017-06-19 15:17 | Consultation ---
History of Present Illness General Date patient seen: Jun 19, 2017 Chief Complaint: Altered Level of Consciousness Reason for Consultation: inpatient management Present Illness HPI 77 year old male with extensive PMHx of CVA, DM, [facility] resident was admitted a few days ago with CC of ALOC and renal failure. Pt was treated with iv fluids, iv antibiotics. Had a swallow study. His renal function improved, bun/creatinine decreased. Sepsis improved on abx. Had positive blood cultures , which seemed to be contaminated. Pt still has episodes lethargy. Allergies: Coded Allergies: No Known Allergies (Unverified , 06/11/17) Medication History Scheduled Ascorbic Acid* (Vitamin C*), 500 MG ORAL DAILY, (Reported) Aspirin (Aspirin EC), 81 MG ORAL DAILY, (Reported) Benazepril Hcl* (Lotensin*), 20 MG ORAL BID, (Reported) Calcium Carbonate/Vitamin D3 (Calcium 500 + Vit D 200 Tablet), 1 EACH PO BID, ( Reported) Escitalopram Oxalate* (Lexapro*), 10 MG ORAL DAILY, (Reported) Folic Acid* (Folic Acid*), 1 MG ORAL DAILY, (Reported) Folic Acid/Vitamin B Comp W-C (Sarah-Ruben Tablet), 0.8 MG PO DAILY, (Reported) Lamotrigine* (Lamictal*), 25 MG ORAL DAILY, (Reported) Lorazepam* (Ativan*), 0.5 MG ORAL EVERY 6 HOURS, (Reported) Multivitamin With Minerals (Multivitamins With Minerals*), 1 TAB ORAL DAILY, ( Reported) Olanzapine* (Zyprexa*), 5 MG ORAL DAILY, (Reported) Vitamin B Cmplx/Vit C/Folic AC (Nephro-Ruben Tablet), 1 TAB ORAL DAILY, (Reported ) Scheduled PRN Acetaminophen* (Acetaminophen 325MG Tablet*), 650 MG ORAL Q4H PRN for Fever/ Headache/Mild Pain, (Reported) Magnesium Hydroxide* (Milk Of Magnesia*), 30 ML ORAL EVERY 6 HOURS PRN for Constipation, (Reported) Temazepam* (Restoril*), 15 MG ORAL BEDTIME PRN for Insomnia, (Reported) Patient History Healthcare decision maker Resuscitation status Full Code Advanced Directive on File Past Medical/Surgical History Past Medical/Surgical History: (1) CVA, old, hemiparesis (2) 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 ,L spastic hemiparesis, vascular dementia Review of Systems Constitutional: Reports: malaise, weakness All Other Systems: negative except mentioned in HPI Physical Exam General Appearance: cachetic Lines, tubes and drains: peripheral HEENT: normocephalic, atraumatic Neck: non-tender, normal alignment Respiratory/Chest: chest wall non-tender Breasts: no masses Cardiovascular/Chest: normal peripheral pulses Abdomen: normal bowel sounds, non tender Genitourinary/Rectal: normal genital exam Skin Exam: normal pigmentation Last 24 Hour Vital Signs Date Time Temp Pulse Resp B/P (MAP) Pulse Ox O2 Delivery O2 Flow Rate FiO2 06/19/17 12:00 97.7 65 18 155/102 95 06/19/17 09:59 151/88 06/19/17 08:00 97.9 62 18 151/88 96 06/19/17 04:02 97.3 65 20 133/88 97 06/19/17 04:00 65 06/19/17 00:00 72 06/19/17 00:00 97.0 65 20 143/73 97 06/18/17 20:00 97.3 61 20 151/92 99 06/18/17 20:00 71 06/18/17 17:07 127/74 06/18/17 16:00 97.7 53 18 127/74 95 Room Air 06/18/17 16:00 63 Intake and Output 06/18/17 06/19/17 19:00 07:00 Intake Total 900 ml Output Total 600 ml 700 ml Balance 300 ml -700 ml Intake Oral 900 ml Output Urine Total 600 ml 700 ml # Voids 3 # Bowel Movements 1 Height (Feet): 5 Height (Inches): 9.00 Weight (Pounds): 137 Medications Current Medications Medications (Trade) Dose Ordered Sig/Lopez Route PRN Reason Start Time Stop Time Status Last Admin Dose Admin Acetaminophen (Tylenol) 650 mg Q4H PRN ORAL Mild Pain/Temp > 100.5 06/12/17 07:30 07/12/17 07:29 06/15/17 03:54 Ascorbic Acid (Vitamin C) 500 mg DAILY ORAL 06/12/17 09:00 07/12/17 08:59 06/19/17 09:59 Aspirin (ASA) 81 mg DAILY ORAL 06/12/17 09:00 07/12/17 08:59 06/19/17 09:59 Benazepril HCl (Lotensin) 20 mg BID ORAL 06/12/17 09:00 07/12/17 08:59 06/19/17 09:59 Heparin Sodium (Porcine) (Heparin 5000 units/ml) 5,000 units EVERY 12 HOURS SUBQ 06/13/17 21:00 07/13/17 20:59 06/19/17 10:02 Magnesium Hydroxide (Mom) 30 ml Q6HR PRN ORAL Constipation 06/12/17 07:30 07/12/17 07:29 Multivitamins (Multivitamins) 1 tab DAILY ORAL 06/12/17 09:00 07/12/17 08:59 06/19/17 09:59 Olanzapine (ZyPREXA) 5 mg QHS ORAL 06/13/17 21:00 07/12/17 08:59 06/18/17 20:29 Assessment/Plan Problem List: (1) Acute encephalopathy ICD Codes: G93.40 - Encephalopathy, unspecified SNOMED: 1725816 (2) Urinary tract infection ICD Codes: N39.0 - Urinary tract infection, site not specified SNOMED: 09757153 (3) ATN (acute tubular necrosis) ICD Codes: N17.0 - Acute kidney failure with tubular necrosis SNOMED: 90393752 (4) CVA, old, hemiparesis ICD Codes: I69.359 - Hemiplegia and hemiparesis following cerebral infarction affecting unspecified side SNOMED: 916034245 (5) Protein-calorie malnutrition, severe ICD Codes: E43 - Unspecified severe protein-calorie malnutrition SNOMED: 816583834 Assessment/Plan improving continue current diet swallow precaution Neuro to re-evaluate again dc planning soon. BAN PERLA Jun 19, 2017 15:17
[2017-06-19 16:00] VITALS: BP 159/91
--- NOTE | 2017-06-19 17:27 | Wound Nurse Progress Note ---
Wound RN Progress Note Wound Consult #1 Left dorsal aspect of foot unstageable pressure ulcer. Skin intact #2 Sacrococcygeal scattered deep tissue injuries with blister formation. More deep purple/maroon in color. #3 left and right arms scattered ecchymosis. Skin intact Reassessed this Pt today. Sacrococcygeal scattered DTI looked more Deep purple/ maroon in color with scattered blood blisters. Will follow up with this Pt and cont offloading and recommendations below Recommendation -Local wound care as ordered. -Apply low air loss SPR mattress for wound and skin management. -Turn and reposition -Optimize nutrition. -Keep clean and dry. -Offload affected sites, heels for skin management and prevention. -Heel protectors -Avoid shear and friction. -Assess and notify MD for any further change of condition noted to skin. TIFFANIE GONZALEZ RN Jun 19, 2017 17:27
--- NOTE | 2017-06-19 19:36 | General Progress Note ---
Assessment/Plan Assessment/Plan ASSESSMENT AND RECOMMENDATIONS: 1. Thrombocytopenia, mild, will continue to monitor. --> now has improved 2. Bacteremia on abx per ID service, coa negative sh --> likely contaminant per ID --> no longer on abx 3. Altered mental status/encephalopathy 4. UTI enerococcus 5. Encephalopathy 6. Dehydration 7. Deep venous thrombosis prophylaxis with heparin subcutaneous Subjective Allergies: Coded Allergies: No Known Allergies (Unverified , 06/11/17) Subjective NAD Objective Last 24 Hour Vital Signs Date Time Temp Pulse Resp B/P (MAP) Pulse Ox O2 Delivery O2 Flow Rate FiO2 06/19/17 17:57 159/91 06/19/17 16:00 97.5 65 20 159/91 95 06/19/17 12:00 97.7 65 18 155/102 95 06/19/17 09:59 151/88 06/19/17 08:00 97.9 62 18 151/88 96 06/19/17 04:02 97.3 65 20 133/88 97 06/19/17 04:00 65 06/19/17 00:00 72 06/19/17 00:00 97.0 65 20 143/73 97 06/18/17 20:00 97.3 61 20 151/92 99 06/18/17 20:00 71 Intake and Output 06/18/17 06/19/17 19:00 07:00 Intake Total 900 ml Output Total 600 ml 700 ml Balance 300 ml -700 ml Intake Oral 900 ml Output Urine Total 600 ml 700 ml # Voids 3 # Bowel Movements 1 Height (Feet): 5 Height (Inches): 9.00 Weight (Pounds): 137 General Appearance: no apparent distress EENT: normal ENT inspection Neck: normal alignment Cardiovascular: normal peripheral pulses Respiratory/Chest: chest wall non-tender Neurologic: compliance analyst II-XII grossly normal Skin: normal pigmentation Objective unchanged Sree Dubon Jun 19, 2017 19:36
[2017-06-19 20:00] VITALS: BP 131/78
[2017-06-20] VITALS: BP 180/97
[2017-06-20 04:00] VITALS: BP 145/72
[2017-06-20] MEDS ORDERED: Milk of Magnesia 30ml Ud ORAL PRN (06:00)
[2017-06-20 07:26] LABS: BASOPHILS % (AUTO) 1.4 % (0.0-2.0); EOSINOPHILS % (AUTO) 4.6 % (0.0-3.0); HEMATOCRIT 40.1 % (42.0-52.0); HEMOGLOBIN 13.4 G/DL (14.2-18.0); LYMPHOCYTES % (AUTO) 29.6 % (20.0-45.0); MEAN CORPUSCULAR VOLUME 95 FL (80-99); MONOCYTES % (AUTO) 7.2 % (1.0-10.0); NEUTROPHILS % (AUTO) 57.3 % (45.0-75.0); PLATELET COUNT 216 K/UL (150-450); RED BLOOD COUNT 4.22 M/UL (4.70-6.10); RED CELL DISTRIBUTION WIDTH 11.7 % (11.6-14.8)
[2017-06-20 07:32] LABS: ANION GAP 6 mmol/L (5-15); BLOOD UREA NITROGEN 15 mg/dL (7-18); CALCIUM 7.5 MG/DL (8.5-10.1); CARBON DIOXIDE 26 MMOL/L (21-32); CHLORIDE 112 MMOL/L (98-107); CREATININE 0.8 MG/DL (0.55-1.30); SODIUM 144 MMOL/L (136-145)
[2017-06-20 08:00] VITALS: BP 125/64
--- NOTE | 2017-06-20 08:13 | General Progress Note ---
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 ,L spastic hemiparesis, vascular dementia (5) lethargy, 2/2metabolic encephalopathy/UTI (6) Hypernatremia ICD Codes: E87.0 - Hyperosmolality and hypernatremia SNOMED: 82539332 Status: stable, progressing, tolerating diet Assessment/Plan ot pt diet cbc bmp am dc plan Subjective Constitutional: Reports: weakness Allergies: Coded Allergies: No Known Allergies (Unverified , 06/11/17) All Systems: reviewed and negative except above Subjective lethargic confused Objective Last 24 Hour Vital Signs Date Time Temp Pulse Resp B/P (MAP) Pulse Ox O2 Delivery O2 Flow Rate FiO2 06/20/17 04:00 97.7 64 19 145/72 97 06/20/17 00:00 97.5 55 18 180/97 Room Air 06/19/17 20:00 97.3 65 16 131/78 97 Room Air 06/19/17 17:57 159/91 06/19/17 16:00 64 06/19/17 16:00 97.5 65 20 159/91 95 06/19/17 12:00 62 06/19/17 12:00 97.7 65 18 155/102 95 06/19/17 09:59 151/88 Intake and Output 06/19/17 06/20/17 19:00 07:00 Output Total 850 ml Balance -850 ml Output Urine Total 850 ml # Voids 1 1 Laboratory Tests 06/20/17 06:00: White Blood Count 6.0, Red Blood Count 4.22L, Hemoglobin 13.4L, Hematocrit 40.1L , Mean Corpuscular Volume 95, Mean Corpuscular Hemoglobin 31.7H, Mean Corpuscular Hemoglobin Concent 33.4, Red Cell Distribution Width 11.7, Platelet Count 216, Mean Platelet Volume 6.2L, Neutrophils (%) (Auto) 57.3, Lymphocytes ( %) (Auto) 29.6, Monocytes (%) (Auto) 7.2, Eosinophils (%) (Auto) 4.6H, Basophils (%) (Auto) 1.4, Sodium Level 144, Potassium Level 4.0, Chloride Level 112H, Carbon Dioxide Level 26, Anion Gap 6, Blood Urea Nitrogen 15, Creatinine 0.8, Estimat Glomerular Filtration Rate , Glucose Level 98, Calcium Level 7.5L Height (Feet): 5 Height (Inches): 9.00 Weight (Pounds): 137 General Appearance: lethargic, confused EENT: normal ENT inspection Neck: normal alignment Cardiovascular: normal peripheral pulses, normal rate, regular rhythm Respiratory/Chest: chest wall non-tender, lungs clear, normal breath sounds Abdomen: normal bowel sounds, non tender, soft Extremities: normal inspection Edema: no edema noted Arm (L), no edema noted Arm (R), no edema noted Leg (L), no edema noted Leg (R), no edema noted Pedal (L), no edema noted Pedal (R), no edema noted Generalized Neurologic: motor weakness Skin: normal pigmentation, warm/dry MADDIE AMATO Jun 20, 2017 08:13
[2017-06-20] MEDS ORDERED: Ascorbic Acid 500mg tab ORAL SCH (09:00)
[2017-06-20] MEDS ORDERED: Heparin 5000 units/ml inj SUBQ SCH (09:00)
[2017-06-20] MEDS ORDERED: Aspirin Baby 81mg ORAL SCH (09:00)
--- NOTE | 2017-06-20 11:31 | Infectious Diseases Prog Note ---
Assessment/Plan Assessment/Plan antibiotics : none A 1. enterococcus UTI s/p rx 2. + blood culture with coag neg staph likely contaminated 3. COPD 4. dementia 5. CVA P 1. observe off antibiotics Subjective ROS Limited/Unobtainable: Yes Allergies: Coded Allergies: No Known Allergies (Unverified , 06/11/17) Objective Vital Signs Last 24 Hour Vital Signs Date Time Temp Pulse Resp B/P (MAP) Pulse Ox O2 Delivery O2 Flow Rate FiO2 06/20/17 08:54 125/64 06/20/17 08:00 98.1 50 18 125/64 98 06/20/17 04:00 97.7 64 19 145/72 97 06/20/17 00:00 97.5 55 18 180/97 Room Air 06/19/17 20:00 97.3 65 16 131/78 97 Room Air 06/19/17 17:57 159/91 06/19/17 16:00 64 06/19/17 16:00 97.5 65 20 159/91 95 06/19/17 12:00 62 06/19/17 12:00 97.7 65 18 155/102 95 Height (Feet): 5 Height (Inches): 9.00 Weight (Pounds): 137 Respiratory/Chest: lungs clear Cardiovascular: normal rate, regular rhythm, no gallop/murmur Abdomen: soft, non tender Extremities: no edema Laboratory Tests Test 06/20/17 06:00 White Blood Count 6.0 K/UL (4.8-10.8) Red Blood Count 4.22 M/UL (4.70-6.10) L Hemoglobin 13.4 G/DL (14.2-18.0) L Hematocrit 40.1 % (42.0-52.0) L Mean Corpuscular Volume 95 FL (80-99) Mean Corpuscular Hemoglobin 31.7 PG (27.0-31.0) H Mean Corpuscular Hemoglobin Concent 33.4 G/DL (32.0-36.0) Red Cell Distribution Width 11.7 % (11.6-14.8) Platelet Count 216 K/UL (150-450) Mean Platelet Volume 6.2 FL (6.5-10.1) L Neutrophils (%) (Auto) 57.3 % (45.0-75.0) Lymphocytes (%) (Auto) 29.6 % (20.0-45.0) Monocytes (%) (Auto) 7.2 % (1.0-10.0) Eosinophils (%) (Auto) 4.6 % (0.0-3.0) H Basophils (%) (Auto) 1.4 % (0.0-2.0) Sodium Level 144 MMOL/L (136-145) Potassium Level 4.0 MMOL/L (3.5-5.1) Chloride Level 112 MMOL/L (98-107) H Carbon Dioxide Level 26 MMOL/L (21-32) Anion Gap 6 mmol/L (5-15) Blood Urea Nitrogen 15 mg/dL (7-18) Creatinine 0.8 MG/DL (0.55-1.30) Estimat Glomerular Filtration Rate mL/min (>60) Glucose Level 98 MG/DL (74-106) Calcium Level 7.5 MG/DL (8.5-10.1) YUE FARIAS Jun 20, 2017 11:31
[2017-06-20 12:00] VITALS: BP 118/74
--- NOTE | 2017-06-20 15:03 | Nephrology Progress Note ---
Assessment/Plan Problem List: (1) Urinary tract infection (2) Altered level of consciousness (3) CVA, old, hemiparesis (4) lethargy, 2/2metabolic encephalopathy/UTI (5) Hypernatremia Assessment Encephalopathy Urinary tract infection CVA, old, hemiparesis Hypernatremia / dehydration Plan DC IV fluid K supplement Adjust mind altering meds monitor renal parameters Antibiotics DC planning Subjective ROS Limited/Unobtainable: No Constitutional: Reports: malaise Objective Objective Last 24 Hour Vital Signs Date Time Temp Pulse Resp B/P (MAP) Pulse Ox O2 Delivery O2 Flow Rate FiO2 06/20/17 12:00 97.3 66 19 118/74 96 06/20/17 08:54 125/64 06/20/17 08:00 98.1 50 18 125/64 98 06/20/17 04:00 97.7 64 19 145/72 97 06/20/17 00:00 97.5 55 18 180/97 Room Air 06/19/17 20:00 97.3 65 16 131/78 97 Room Air 06/19/17 17:57 159/91 06/19/17 16:00 64 06/19/17 16:00 97.5 65 20 159/91 95 Intake and Output 06/19/17 06/20/17 19:00 07:00 Output Total 850 ml Balance -850 ml Output Urine Total 850 ml # Voids 1 1 Laboratory Tests 06/20/17 06:00: White Blood Count 6.0, Red Blood Count 4.22L, Hemoglobin 13.4L, Hematocrit 40.1L , Mean Corpuscular Volume 95, Mean Corpuscular Hemoglobin 31.7H, Mean Corpuscular Hemoglobin Concent 33.4, Red Cell Distribution Width 11.7, Platelet Count 216, Mean Platelet Volume 6.2L, Neutrophils (%) (Auto) 57.3, Lymphocytes ( %) (Auto) 29.6, Monocytes (%) (Auto) 7.2, Eosinophils (%) (Auto) 4.6H, Basophils (%) (Auto) 1.4, Sodium Level 144, Potassium Level 4.0, Chloride Level 112H, Carbon Dioxide Level 26, Anion Gap 6, Blood Urea Nitrogen 15, Creatinine 0.8, Estimat Glomerular Filtration Rate , Glucose Level 98, Calcium Level 7.5L Height (Feet): 5 Height (Inches): 9.00 Weight (Pounds): 137 General Appearance: no apparent distress Objective no change JACQUELINE HILL Jun 20, 2017 15:03
[2017-06-20 16:00] VITALS: BP_SYST 112; BP_SYST 120; BP_DIAS 72
--- NOTE | 2017-06-20 16:55 | General Progress Note ---
Assessment/Plan Assessment/Plan ASSESSMENT AND RECOMMENDATIONS: 1. Thrombocytopenia, mild, will continue to monitor. --> now has improved, above 150k 2. Bacteremia on abx per ID service, coa negative sh --> likely contaminant per ID --> no longer on abx 3. Altered mental status/encephalopathy 4. UTI enerococcus 5. Encephalopathy 6. Dehydration 7. Deep venous thrombosis prophylaxis with heparin subcutaneous Subjective Constitutional: Denies: no symptoms, chills, diaphoresis, fever, malaise, weakness, other HEENT: Denies: no symptoms, eye pain, blurred vision, tearing, double vision, ear pain, ear discharge, nose pain, nose congestion, throat pain, throat swelling, mouth pain, mouth swelling, other Cardiovascular: Denies: no symptoms, chest pain, edema, irregular heart rate, lightheadedness, palpitations, syncope, other Respiratory: Denies: no symptoms, cough, orthopnea, shortness of breath, SOB with excertion, SOB at rest, sputum, stridor, wheezing, other Gastrointestinal/Abdominal: Denies: no symptoms, abdomen distended, abdominal pain, black stools, tarry stools, blood in stool, constipated, diarrhea, difficulty swallowing, nausea, poor appetite, poor fluid intake, rectal bleeding , vomiting, other Genitourinary: Denies: no symptoms, burning, discharge, frequency, flank pain, hematuria, incontinence, pain, urgency, other Neurologic/Psychiatric: Denies: no symptoms, anxiety, depressed, emotional problems, headache, numbness, paresthesia, pre-existing deficit, seizure, tingling, tremors, weakness, other Endocrine: Denies: no symptoms, excessive sweating, flushing, intolerance to cold, intolerance to heat, increased hunger, increased thirst, increased urine, unexplained weight gain, unexplained weight loss, other Hematologic/Lymphatic: Denies: no symptoms, anemia, easy bleeding, easy bruising, other Allergies: Coded Allergies: No Known Allergies (Unverified , 06/11/17) Subjective confused Objective Last 24 Hour Vital Signs Date Time Temp Pulse Resp B/P (MAP) Pulse Ox O2 Delivery O2 Flow Rate FiO2 06/20/17 16:00 98.1 61 17 120/72 95 06/20/17 12:00 97.3 66 19 118/74 96 06/20/17 08:54 125/64 06/20/17 08:00 98.1 50 18 125/64 98 06/20/17 04:00 97.7 64 19 145/72 97 06/20/17 00:00 97.5 55 18 180/97 Room Air 06/19/17 20:00 97.3 65 16 131/78 97 Room Air 06/19/17 17:57 159/91 Intake and Output 06/19/17 06/20/17 19:00 07:00 Output Total 850 ml Balance -850 ml Output Urine Total 850 ml # Voids 1 1 Laboratory Tests 06/20/17 06:00: White Blood Count 6.0, Red Blood Count 4.22L, Hemoglobin 13.4L, Hematocrit 40.1L , Mean Corpuscular Volume 95, Mean Corpuscular Hemoglobin 31.7H, Mean Corpuscular Hemoglobin Concent 33.4, Red Cell Distribution Width 11.7, Platelet Count 216, Mean Platelet Volume 6.2L, Neutrophils (%) (Auto) 57.3, Lymphocytes ( %) (Auto) 29.6, Monocytes (%) (Auto) 7.2, Eosinophils (%) (Auto) 4.6H, Basophils (%) (Auto) 1.4, Sodium Level 144, Potassium Level 4.0, Chloride Level 112H, Carbon Dioxide Level 26, Anion Gap 6, Blood Urea Nitrogen 15, Creatinine 0.8, Estimat Glomerular Filtration Rate , Glucose Level 98, Calcium Level 7.5L Height (Feet): 5 Height (Inches): 9.00 Weight (Pounds): 137 General Appearance: confused EENT: normal ENT inspection Neck: non-tender Cardiovascular: regular rhythm Respiratory/Chest: lungs clear Abdomen: non tender Edema: 1+ Leg (L), 1+ Leg (R) Edema: trace edema Skin: warm/dry Objective unchanged Sree Dubon Jun 20, 2017 16:55
--- NOTE | 2017-06-20 17:02 | Pulmonology Progress Note ---
Assessment/Plan Problems: (1) Acute encephalopathy (2) Urinary tract infection (3) ATN (acute tubular necrosis) (4) CVA, old, hemiparesis (5) Protein-calorie malnutrition, severe Assessment/Plan improving all noted cleared by psychiatry to go back to shelter Subjective ROS Limited/Unobtainable: No Constitutional: Reports: no symptoms HEENT: Repors: no symptoms Respiratory: Reports: no symptoms Allergies: Coded Allergies: No Known Allergies (Unverified , 06/11/17) Objective Last 24 Hour Vital Signs Date Time Temp Pulse Resp B/P (MAP) Pulse Ox O2 Delivery O2 Flow Rate FiO2 06/20/17 16:00 98.1 61 17 120/72 95 06/20/17 12:00 97.3 66 19 118/74 96 06/20/17 08:54 125/64 06/20/17 08:00 98.1 50 18 125/64 98 06/20/17 04:00 97.7 64 19 145/72 97 06/20/17 00:00 97.5 55 18 180/97 Room Air 06/19/17 20:00 97.3 65 16 131/78 97 Room Air 06/19/17 17:57 159/91 Intake and Output 06/19/17 06/20/17 19:00 07:00 Output Total 850 ml Balance -850 ml Output Urine Total 850 ml # Voids 1 1 General Appearance: WD/WN HEENT: normocephalic, atraumatic Respiratory/Chest: chest wall non-tender, lungs clear Cardiovascular: normal peripheral pulses, normal rate Abdomen: normal bowel sounds, soft, non tender Genitourinary: normal external genitalia Extremities: no clubbing Neurologic/Psychiatric: signal intelligence/electronic warfare II-XII grossly normal Laboratory Tests 06/20/17 06:00: White Blood Count 6.0, Red Blood Count 4.22L, Hemoglobin 13.4L, Hematocrit 40.1L , Mean Corpuscular Volume 95, Mean Corpuscular Hemoglobin 31.7H, Mean Corpuscular Hemoglobin Concent 33.4, Red Cell Distribution Width 11.7, Platelet Count 216, Mean Platelet Volume 6.2L, Neutrophils (%) (Auto) 57.3, Lymphocytes ( %) (Auto) 29.6, Monocytes (%) (Auto) 7.2, Eosinophils (%) (Auto) 4.6H, Basophils (%) (Auto) 1.4, Sodium Level 144, Potassium Level 4.0, Chloride Level 112H, Carbon Dioxide Level 26, Anion Gap 6, Blood Urea Nitrogen 15, Creatinine 0.8, Estimat Glomerular Filtration Rate , Glucose Level 98, Calcium Level 7.5L Current Medications Medications (Trade) Dose Ordered Sig/Lopez Route PRN Reason Start Time Stop Time Status Last Admin Dose Admin Acetaminophen (Tylenol) 650 mg Q4H PRN ORAL Mild Pain/Temp > 100.5 06/20/17 03:30 07/12/17 07:29 Ascorbic Acid (Vitamin C) 500 mg DAILY ORAL 06/20/17 09:00 07/12/17 08:59 06/20/17 08:50 Aspirin (ASA) 81 mg DAILY ORAL 06/20/17 09:00 07/12/17 08:59 06/20/17 08:50 Benazepril HCl (Lotensin) 20 mg BID ORAL 06/20/17 09:00 07/12/17 08:59 06/20/17 08:54 Heparin Sodium (Porcine) (Heparin 5000 units/ml) 5,000 units EVERY 12 HOURS SUBQ 06/20/17 09:00 07/13/17 20:59 06/20/17 08:50 Magnesium Hydroxide (Mom) 30 ml Q6H PRN ORAL Constipation 06/20/17 06:00 07/20/17 05:59 Multivitamins (Multivitamins) 1 tab DAILY ORAL 06/20/17 09:00 07/12/17 08:59 06/20/17 08:49 Olanzapine (ZyPREXA) 5 mg QHS ORAL 06/20/17 21:00 07/12/17 08:59 BAN PERLA Jun 20, 2017 17:02
--- NOTE | 2017-06-22 13:34 | Discharge Summary ---
Discharge Summary Hospital Course Date of Admission Jun 11, 2017 at 15:52 Date of Discharge Jun 20, 2017 at 16:09 Admitting Diagnosis ALTERD MENTAL STATUS HPI Russell Dallas is a 77 year old male who was admitted on Jun 11, 2017 at 15: 52 for Altered Mental Status Hospital Course [id number] Discharge Discharge Disposition Patient was discharged to SNF/Subacute Facility(03) Discharge Diagnoses: Sailaja Bone NP Jun 22, 2017 13:34
--- NOTE | 2017-06-22 19:00 | Discharge Summary 2 SIG ---
DATE OF ADMISSION: 06/11/2017 DATE OF DISCHARGE: 06/20/2017 CONSULTANTS: 1. Luzmaria Downey M.D. 2. Sree Dubon M.D. 3. Maximino Castillo M.D. 4. Reema Hannon M.D. 5. Oswaldo Engel M.D. 6. Crispin Aguirre M.D. BRIEF HOSPITAL COURSE: The patient is a 77-year-old male with history of CVA with hemiparesis and chronic obstructive pulmonary disease, presented to ED for altered mental status. On evaluation at ED, showed evidence of urine infection. The patient was admitted and underwent neurological evaluation. He is status post old right middle cerebral artery distribution stroke with left hemiparesis secondary to underlying metabolic derangement and infection. He was given IV fluids and was started on IV ceftriaxone by Infectious Disease specialist. He was diagnosed to have major depressive disorder and psychotic disorder. Lexapro was discontinued and was given Zyprexa 5 mg at bedtime with p.r.n. Ativan and Lexapro 10 mg every morning. He was given IV hydration. Hypernatremia was secondary to dehydration. Urine culture with growth of Enterococcus. Blood culture with coagulase-negative Staph, likely contamination. The patient was given amoxicillin. He came in with sacral coccygeal DTI and unstageable pressure ulcer on the left dorsal aspect of the foot. He was given wound care treatment. He has mild thrombocytopenia. He was eventually discharged back to custodial. FINAL DIAGNOSES: 1. Acute encephalopathy secondary to urinary tract infection. 2. Urinary tract infection with Enterococcus. 3. Acute tubular necrosis. 4. Old cerebrovascular accident with left hemiparesis. 5. Severe protein-calorie malnutrition. 6. Mild thrombocytopenia. 7. Dehydration. 8. Dementia. 9. Chronic obstructive pulmonary disease. 10. Unstageable pressure ulcer on left foot present on admission DISPOSITION: The patient was discharged to [facility]. DISCHARGE MEDICATIONS: Refer to medication list. German Carlin D.O. I have been assigned to dictate discharge summary on this account and I was not involved in the patient's management. Sailaja Bone N.P. DR: RUSTY JOB#: [id number] CC: EDU
--- NOTE | 2017-06-26 00:26 | Cardiology Report ---
APPROVED REPORT EKG Measurement Heart [id number] Sinus bradycardia Minimal voltage criteria for LVH, may be normal variant Cannot rule out Anterior infarct, age undetermined Abnormal ECG
== END 2017-06-20 16:09 | DRG 689 ==
LOC: EDBD 14:47 → EMR 15:12 → EDBEDREQ 15:29 → 2E 15:52 → EDBEDREQ 17:30 → 3E 06-20 01:23
DX: N39.0 Urinary tract infection, site not specified (principal); G93.41 Metabolic encephalopathy; N17.0 Acute kidney failure with tubular necrosis; E43 Unspecified severe protein-calorie malnutrition; L89.159 Pressure ulcer of sacral region, unspecified stage; E87.0 Hyperosmolality and hypernatremia; D69.6 Thrombocytopenia, unspecified; R00.1 Bradycardia, unspecified; I69.354 Hemiplegia and hemiparesis following cerebral infarction affecting left non-dominant side; E86.0 Dehydration; J44.9 Chronic obstructive pulmonary disease, unspecified; Z23 Encounter for immunization; B95.2 Enterococcus as the cause of diseases classified elsewhere; Z68.20 Body mass index [BMI] 20.0-20.9, adult; E11.9 Type 2 diabetes mellitus without complications; E78.5 Hyperlipidemia, unspecified; G89.4 Chronic pain syndrome; F25.9 Schizoaffective disorder, unspecified; I10 Essential (primary) hypertension; F41.9 Anxiety disorder, unspecified; F01.50 Vascular dementia, unspecified severity, without behavioral disturbance, psychotic disturbance, mood disturbance, and anxiety; Z79.82 Long term (current) use of aspirin
CPT/HCPCS: 36415; 36600; 71010; 80048; 80053; 80061; 81003; 82550; 82553; 82607; 82746; 82803; 82977; 83036; 83605; 83735; 83880; 84100; 84443; 84484; 84550; 85025; 85610; 85730; 86140; 86710; 87040; 87081; 87086; 87181; 90630; 93005; 99285; J8499

== ENCOUNTER 2017-06-26 08:39 | Inpatient (IN) | payer MEDICARE, OTHER ==
[2017-06-26] VITALS (8 sets, daily range): BP systolic 101–155; BP diastolic 62–85
[~2017-06-26] VITALS: Ht 175.3 cm; Wt 72.6 kg
[~2017-06-26 08:39] MED LIST: ACETAMINOPHEN325 M1 ORAL; ASPIRIN-LOW81 MG ORAL; ATIVAN0.5 MG ORAL; CALCIUM 500 +1 EAC5 PO; FOLIC ACID1 MG ORAL; LAMICTAL25 MG ORAL; LEXAPRO10 MG ORAL; LOTENSIN20 MG ORAL; MILK OF MA400 MG/51 ORAL; MULTIVITAMINS1 EAC8 ORAL; NEPHROVITE1 TAB ORAL; RENA-VITE TABL0.8 M1 PO; RESTORIL15 MG ORAL; VITAMIN C500 M1 ORAL; ZYPREXA5 MG ORAL
--- NOTE | 2017-06-26 08:42 | Emergency Room Report ---
History of Present Illness General Source: Patient Present Illness HPI Patient is a 77-year-old male brought in by EMS after increased altered mental status. Patient noted to have decreased responsiveness. Patient is normally nonverbal. He is normally interactive and normally tracks with his eyes somewhat. Patient was noted to be warm to the touch by EMS. Patient was brought in from [facility]. Allergies: Coded Allergies: No Known Allergies (Unverified , 06/11/17) Patient History Past Medical History: see triage record Reviewed Nursing Documentation: PMH: Agreed, PSxH: Agreed Review of Systems All Other Systems: negative except mentioned in HPI Physical Exam Sp02 EP Interpretation: reviewed, normal General Appearance: normal inspection, alert, Chronically Ill Head: atraumatic Eyes: bilateral eye PERRL, bilateral eye other - right eye postsurgical pupil ENT: normal ENT inspection, hearing grossly normal, normal voice, other - dry mucous membranes Neck: normal inspection, full range of motion, supple, no bony tend, limited range of motion Respiratory: no wheezing, rhonchi Cardiovascular #1: no edema, tachycardia Gastrointestinal: normal inspection, normal bowel sounds, non tender, soft, no guarding, no hernia Genitourinary: no CVA tenderness Musculoskeletal: normal inspection, back normal Neurologic: normal inspection, alert, responsive, motor weakness, other Psychiatric: other - flat affect Skin: normal inspection, normal color, no rash Medical Decision Making Diagnostic Impression: Primary Impression: Acute encephalopathy Additional Impression: Urinary tract infection ER Course Patient presented for fever. Differential diagnosis included wasn't limited to pneumonia, urinary tract infection, drug fever, allergic reaction, sepsis, cholecystitis, among others.Because of complexity of patient's case laboratory testing and imaging studies were ordered. The patient was noted to have a fever as well as a clinical evidence of pneumonia. The patient started on IV antibiotics. Dr. German Carlin was contacted for inpatient management Labs Test 06/26/17 10:10 06/26/17 12:53 White Blood Count 7.2 K/UL (4.8-10.8) Red Blood Count 4.61 M/UL (4.70-6.10) Hemoglobin 14.4 G/DL (14.2-18.0) Hematocrit 43.6 % (42.0-52.0) Mean Corpuscular Volume 95 FL (80-99) Mean Corpuscular Hemoglobin 31.3 PG (27.0-31.0) Mean Corpuscular Hemoglobin Concent 33.1 G/DL (32.0-36.0) Red Cell Distribution Width 12.0 % (11.6-14.8) Platelet Count 185 K/UL (150-450) Mean Platelet Volume 7.4 FL (6.5-10.1) Neutrophils (%) (Auto) % (45.0-75.0) Lymphocytes (%) (Auto) % (20.0-45.0) Monocytes (%) (Auto) % (1.0-10.0) Eosinophils (%) (Auto) % (0.0-3.0) Basophils (%) (Auto) % (0.0-2.0) Differential Total Cells Counted 100 Neutrophils % (Manual) 88 % (45-75) Lymphocytes % (Manual) 6 % (20-45) Monocytes % (Manual) 6 % (1-10) Eosinophils % (Manual) 0 % (0-3) Basophils % (Manual) 0 % (0-2) Band Neutrophils 0 % (0-8) Platelet Estimate Adequate Platelet Morphology Normal Red Blood Cell Morphology Normal Urine Color Yellow Urine Appearance Slightly cloudy Urine pH 5 (4.5-8.0) Urine Specific [place] 1.020 (1.005-1.035) Urine Protein 2+ (NEGATIVE) Urine Glucose (UA) Negative (NEGATIVE) Urine Ketones 3+ (NEGATIVE) Urine Occult Blood Negative (NEGATIVE) Urine Nitrite Negative (NEGATIVE) Urine Bilirubin Negative (NEGATIVE) Urine Urobilinogen 1 MG/DL (0.0-1.0) Urine Leukocyte Esterase 1+ (NEGATIVE) Urine RBC 2-4 /HPF (0 - 0) Urine WBC 5-10 /HPF (0 - 0) Urine Squamous Epithelial Cells Few /LPF (NONE/OCC) Urine Bacteria Few /HPF (NONE) Urine Mucus Few /LPF (NONE/OCC) Sodium Level 145 MMOL/L (136-145) Potassium Level 4.4 MMOL/L (3.5-5.1) Chloride Level 109 MMOL/L (98-107) Carbon Dioxide Level 25 MMOL/L (21-32) Anion Gap 11 mmol/L (5-15) Blood Urea Nitrogen 19 mg/dL (7-18) Creatinine 1.1 MG/DL (0.55-1.30) Estimat Glomerular Filtration Rate mL/min (>60) Glucose Level 139 MG/DL (74-106) Calcium Level 8.4 MG/DL (8.5-10.1) Phosphorus Level 3.1 MG/DL (2.5-4.9) Magnesium Level 1.8 MG/DL (1.8-2.4) Total Bilirubin 0.8 MG/DL (0.2-1.0) Aspartate Amino Transf (AST/SGOT) 18 U/L (15-37) Alanine Aminotransferase (ALT/SGPT) 11 U/L (12-78) Alkaline Phosphatase 79 U/L (46-116) Total Creatine Kinase 63 U/L (26-308) Creatine Kinase MB < 0.5 NG/ML (0.0-3.6) Creatine Kinase MB Relative Index 0.7 Troponin I 0.014 ng/mL (0.000-0.056) Pro-B-Type Natriuretic Peptide 502 pg/mL (0-125) Total Protein 5.6 G/DL (6.4-8.2) Albumin 2.5 G/DL (3.4-5.0) Globulin 3.1 g/dL Albumin/Globulin Ratio 0.8 (1.0-2.7) Lactic Acid Level 1.50 mmol/L (0.66-2.22) EKG Diagnostic Results Rate: tachycardiac - 108 Rhythm: other ST Segments: no acute changes Rhythm Strip Diag. Results EP Interpretation: yes Rhythm: no PVC's, no ectopy, other - sinus tachycardia Status: unchanged Disposition: ADMITTED INPATIENT Condition: Serious Forrest Martin Jun 26, 2017 08:42
[2017-06-26] MEDS ORDERED: COLACE100 MG ORAL (09:04)
[2017-06-26] MEDS ORDERED: CRANBERRY425 MG PO (09:09)
[2017-06-26] MEDS ORDERED: Unasyn 3gm Inj ONE ×3 (09:33→20:52)
[2017-06-26] MEDS ORDERED: Acetaminophen 650 MG SUPP RECTAL ONE (09:45)
[2017-06-26] MEDS ORDERED: Naproxen 500mg tab ORAL ONE (09:45)
[2017-06-26] MEDS: Ampicillin/Sulbactam Sod 3 GM in NS 110 ML IV SCH ×3 (09:46→21:05)
[2017-06-26 10:34] LABS: HEMATOCRIT 43.6 % (42.0-52.0); HEMOGLOBIN 14.4 G/DL (14.2-18.0); MEAN CORPUSCULAR VOLUME 95 FL (80-99); PLATELET COUNT 185 K/UL (150-450); RED BLOOD COUNT 4.61 M/UL (4.70-6.10); WHITE BLOOD COUNT 7.2 K/UL (4.8-10.8)
[2017-06-26 10:45] LABS: APPEARANCE,URINE SLIGHTLY CLOUDY; BILIRUBIN, URINE NEGATIVE (NEGATIVE); GLUCOSE, URINE (UA) NEGATIVE (NEGATIVE); KETONES,URINE 3+ (NEGATIVE); NITRITE,URINE NEGATIVE (NEGATIVE)
[2017-06-26 10:53] LABS: LEUKOCYTE ESTERASE ,URINE 1+ (NEGATIVE); PH,URINE 5 (4.5-8.0); PROTEIN,URINE 2+ (NEGATIVE); UROBILINOGEN,URINE 1 MG/DL (0.0-1.0)
[2017-06-26 10:56] LABS: COLOR,URINE YELLOW
[2017-06-26 11:05] LABS: ALANINE AMINOTRANSFERASE 11 U/L (12-78); ALBUMIN 2.5 G/DL (3.4-5.0); ALBUMIN/GLOBULIN RATIO 0.8 (1.0-2.7); ALKALINE PHOSPHATASE 79 U/L (46-116); ANION GAP 11 mmol/L (5-15); ASPARTATE AMINO TRANSFERASE 18 U/L (15-37); BILIRUBIN,TOTAL 0.8 MG/DL (0.2-1.0); BLOOD UREA NITROGEN 19 mg/dL (7-18); CARBON DIOXIDE 25 MMOL/L (21-32); CHLORIDE 109 MMOL/L (98-107); CKMB < 0.5 NG/ML (0.0-3.6); CREATINE KINASE 63 U/L (26-308); CREATININE 1.1 MG/DL (0.55-1.30); PHOSPHORUS 3.1 MG/DL (2.5-4.9); POTASSIUM 4.4 MMOL/L (3.5-5.1); SODIUM 145 MMOL/L (136-145)
[2017-06-26 11:31] LABS: CALCIUM 8.4 MG/DL (8.5-10.1)
--- NOTE | 2017-06-26 12:50 | Diagnostic Imaging Report ---
Indication: Dyspnea Comparison: 06/11/2017 A single view chest radiograph was obtained. Findings: Left basilar consolidation suspected due to pneumonia. Similar findings were seen previously. Please correlate clinically. Heart size is normal. Bones are osteopenic. IMPRESSION: Left basilar pneumonia suspected. Similar findings seen previously.
--- NOTE | 2017-06-26 12:50 | Diagnostic Imaging Report ---
Indication: Altered mental status Technique: Contiguous 5 mm thick transaxial imaging of the head obtained in a Siemens Sensation [address] scanner. Soft tissue and bone windows generated. Automatic Exposure Control was utilized. Total Dose length Product (DLP): [address] Dose Index Volume (CTDIvol): 0.15, 70.38 mGy Comparison: none Findings: Ovoid cystic focus noted in the right external capsular region with associated volume loss evidenced by ex vacuo dilatation of the right lateral ventricle. Findings likely on the basis of an old intracranial bleed and/or infarct with encephalomalacia now present. Basal ganglia calcifications are noted bilaterally. There is moderate prominence of the ventricles, basal cisterns, and cerebral sulci consistent with atrophy. Moderate, nonspecific, white matter hypoattenuation is noted throughout the brain consistent with chronic small vessel disease. This appears somewhat asymmetric with greater involvement involving the right hdz radiata relative to the left. This is also associated with slightly greater degree of volume loss on the right. There is no midline shift, edema, acute hemorrhage, mass effect, or abnormal extra-axial fluid collections. Bones and extra osseous soft tissues are unremarkable. Impression: No acute intracranial bleed, mass effect or edema. Old bleed and/or infarct in the right external capsule. Moderate atrophy of the brain. Extensive chronic small vessel disease involving white matter tracts as described above. The CT scanner at [facility] is accredited by the [employer] and the scans are performed using dose optimization techniques as appropriate to a performed exam including Automatic Exposure control.
--- NOTE | 2017-06-26 17:21 | Consultation ---
History of Present Illness General Date patient seen: Jun 26, 2017 Chief Complaint: Altered Level of Consciousness Reason for Consultation: inpatient management Present Illness HPI 77-year-old male brought in by EMS after increased altered mental status. Patient noted to have decreased responsiveness. Patient is normally nonverbal. He is normally interactive and normally tracks with his eyes somewhat. Patient was noted to be warm to the touch by EMS. Allergies: Coded Allergies: No Known Allergies (Unverified , 06/11/17) Medication History Scheduled Ascorbic Acid* (Vitamin C*), 500 MG ORAL DAILY, (Reported) Aspirin (Aspirin EC), 81 MG ORAL DAILY, (Reported) Benazepril Hcl* (Lotensin*), 20 MG ORAL BID, (Reported) Calcium Carbonate/Vitamin D3 (Calcium 500 + Vit D 200 Tablet), 1 EACH PO BID, ( Reported) Docusate Sodium* (Colace*), 100 MG ORAL DAILY, (Reported) Escitalopram Oxalate* (Lexapro*), 10 MG ORAL DAILY, (Reported) Folic Acid* (Folic Acid*), 1 MG ORAL DAILY, (Reported) Folic Acid/Vitamin B Comp W-C (Sarah-Ruben Tablet), 0.8 MG PO DAILY, (Reported) Lamotrigine* (Lamictal*), 25 MG ORAL DAILY, (Reported) Lorazepam* (Ativan*), 0.5 MG ORAL EVERY 6 HOURS, (Reported) Multivitamin With Minerals (Multivitamins With Minerals*), 1 TAB ORAL DAILY, ( Reported) Olanzapine* (Zyprexa*), 5 MG ORAL DAILY, (Reported) Vitamin B Cmplx/Vit C/Folic AC (Nephro-Ruben Tablet), 1 TAB ORAL DAILY, (Reported ) Scheduled PRN Acetaminophen* (Acetaminophen 325MG Tablet*), 650 MG ORAL Q4H PRN for Fever/ Headache/Mild Pain, (Reported) Magnesium Hydroxide* (Milk Of Magnesia*), 30 ML ORAL EVERY 6 HOURS PRN for Constipation, (Reported) Temazepam* (Restoril*), 15 MG ORAL BEDTIME PRN for Insomnia, (Reported) Miscellaneous Medications Cranberry Extract (Cranberry), 425 MG PO, (Reported) Patient History Healthcare decision maker Resuscitation status Advanced Directive on File Past Medical/Surgical History Past Medical/Surgical History: (1) Protein-calorie malnutrition, severe (2) 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 ,L spastic hemiparesis, vascular dementia Review of Systems Constitutional: Reports: no symptoms Eye: Reports: no symptoms ENT: Reports: no symptoms Physical Exam General Appearance: cachetic Lines, tubes and drains: peripheral Neck: non-tender, supple Respiratory/Chest: chest wall non-tender, normal breath sounds Cardiovascular/Chest: normal peripheral pulses, normal rate Abdomen: normal bowel sounds, non tender Last 24 Hour Vital Signs Date Time Temp Pulse Resp B/P (MAP) Pulse Ox O2 Delivery O2 Flow Rate FiO2 06/26/17 16:08 99.7 92 17 125/68 96 Nasal Cannula 2.0 06/26/17 14:29 99.7 105 20 129/80 95 Nasal Cannula 2.0 06/26/17 13:04 100 20 139/78 96 Nasal Cannula 2.0 06/26/17 11:12 100.8 108 22 126/82 97 Nasal Cannula 2.0 06/26/17 10:45 100.8 06/26/17 10:16 100.8 06/26/17 09:00 103.1 101 18 155/85 99 Nasal Cannula 2.0 06/26/17 08:51 98.2 114 18 149/93 98 Room Air Laboratory Tests Test 06/26/17 10:10 06/26/17 12:53 White Blood Count 7.2 K/UL (4.8-10.8) Red Blood Count 4.61 M/UL (4.70-6.10) L Hemoglobin 14.4 G/DL (14.2-18.0) Hematocrit 43.6 % (42.0-52.0) Mean Corpuscular Volume 95 FL (80-99) Mean Corpuscular Hemoglobin 31.3 PG (27.0-31.0) H Mean Corpuscular Hemoglobin Concent 33.1 G/DL (32.0-36.0) Red Cell Distribution Width 12.0 % (11.6-14.8) Platelet Count 185 K/UL (150-450) Mean Platelet Volume 7.4 FL (6.5-10.1) Neutrophils (%) (Auto) % (45.0-75.0) Lymphocytes (%) (Auto) % (20.0-45.0) Monocytes (%) (Auto) % (1.0-10.0) Eosinophils (%) (Auto) % (0.0-3.0) Basophils (%) (Auto) % (0.0-2.0) Differential Total Cells Counted 100 Neutrophils % (Manual) 88 % (45-75) H Lymphocytes % (Manual) 6 % (20-45) L Monocytes % (Manual) 6 % (1-10) Eosinophils % (Manual) 0 % (0-3) Basophils % (Manual) 0 % (0-2) Band Neutrophils 0 % (0-8) Platelet Estimate Adequate Platelet Morphology Normal Red Blood Cell Morphology Normal Urine Color Yellow Urine Appearance Slightly cloudy Urine pH 5 (4.5-8.0) Urine Specific [place] 1.020 (1.005-1.035) Urine Protein 2+ (NEGATIVE) H Urine Glucose (UA) Negative (NEGATIVE) Urine Ketones 3+ (NEGATIVE) H Urine Occult Blood Negative (NEGATIVE) Urine Nitrite Negative (NEGATIVE) Urine Bilirubin Negative (NEGATIVE) Urine Urobilinogen 1 MG/DL (0.0-1.0) H Urine Leukocyte Esterase 1+ (NEGATIVE) H Urine RBC 2-4 /HPF (0 - 0) H Urine WBC 5-10 /HPF (0 - 0) H Urine Squamous Epithelial Cells Few /LPF (NONE/OCC) Urine Bacteria Few /HPF (NONE) Urine Mucus Few /LPF (NONE/OCC) H Sodium Level 145 MMOL/L (136-145) Potassium Level 4.4 MMOL/L (3.5-5.1) Chloride Level 109 MMOL/L (98-107) H Carbon Dioxide Level 25 MMOL/L (21-32) Anion Gap 11 mmol/L (5-15) Blood Urea Nitrogen 19 mg/dL (7-18) H Creatinine 1.1 MG/DL (0.55-1.30) Estimat Glomerular Filtration Rate mL/min (>60) Glucose Level 139 MG/DL (74-106) H Lactic Acid Level 2.10 mmol/L (0.66-2.22) 1.50 mmol/L (0.66-2.22) Calcium Level 8.4 MG/DL (8.5-10.1) L Phosphorus Level 3.1 MG/DL (2.5-4.9) Magnesium Level 1.8 MG/DL (1.8-2.4) Total Bilirubin 0.8 MG/DL (0.2-1.0) Aspartate Amino Transf (AST/SGOT) 18 U/L (15-37) Alanine Aminotransferase (ALT/SGPT) 11 U/L (12-78) L Alkaline Phosphatase 79 U/L (46-116) Total Creatine Kinase 63 U/L (26-308) Creatine Kinase MB < 0.5 NG/ML (0.0-3.6) Creatine Kinase MB Relative Index 0.7 Troponin I 0.014 ng/mL (0.000-0.056) Pro-B-Type Natriuretic Peptide 502 pg/mL (0-125) H Total Protein 5.6 G/DL (6.4-8.2) L Albumin 2.5 G/DL (3.4-5.0) L Globulin 3.1 g/dL Albumin/Globulin Ratio 0.8 (1.0-2.7) L Height (Feet): 5 Height (Inches): 9.00 Weight (Pounds): 160 Medications Current Medications Medications (Trade) Dose Ordered Sig/Lopez Route PRN Reason Start Time Stop Time Status Last Admin Dose Admin Ampicillin Sodium/ Sulbactam Sodium 3 gm/Sodium Chloride 110 ml @ 220 mls/hr Q6H IV 06/26/17 09:00 06/27/17 08:59 06/26/17 15:02 Assessment/Plan Problem List: (1) Acute encephalopathy ICD Codes: G93.40 - Encephalopathy, unspecified SNOMED: 8297977 (2) Pneumonia ICD Codes: J18.9 - Pneumonia, unspecified organism SNOMED: 899084250 (3) ATN (acute tubular necrosis) ICD Codes: N17.0 - Acute kidney failure with tubular necrosis SNOMED: 83744300 (4) Sepsis ICD Codes: A41.9 - Sepsis, unspecified organism SNOMED: 00577456 (5) 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
[2017-06-26] MEDS ORDERED: Miralax 17gm pkt ORAL PRN (17:30)
[2017-06-26] MEDS ORDERED: Albuterol/Ipratropium 3ml neb HHN PRN (17:30)
[2017-06-26] MEDS ORDERED: Vancomycin 1.5 GM/D5W 250ML IVPB ONE (17:30)
[2017-06-26] MEDS ORDERED: Morphine Sulfate 2mg/ml Inj IVP PRN (17:30)
[2017-06-26] MEDS ORDERED: Cefepime 2gm ONE (20:51)
[2017-06-26] MEDS: Cefepime HCl 2 GM in D5W 110 ML IV SCH (21:05)
[2017-06-26] MEDS: Heparin 5000 units/ml inj SUBQ SCH (21:10)
[2017-06-26 21:47] LABS: APPEARANCE,URINE CLEAR; BILIRUBIN, URINE NEGATIVE (NEGATIVE); GLUCOSE, URINE (UA) NEGATIVE (NEGATIVE); KETONES,URINE NEGATIVE (NEGATIVE); LEUKOCYTE ESTERASE ,URINE 1+ (NEGATIVE); NITRITE,URINE NEGATIVE (NEGATIVE); PH,URINE 6 (4.5-8.0); PROTEIN,URINE 2+ (NEGATIVE); UROBILINOGEN,URINE 4 MG/DL (0.0-1.0)
[2017-06-26 21:48] LABS: COLOR,URINE YELLOW
[2017-06-27 00:03] VITALS: BP 92/61
[2017-06-27] MEDS ORDERED: Vancomycin 1 GM in D5W 275 ML IV SCH (00:30)
[2017-06-27 04:09] VITALS: BP 95/61
[2017-06-27] MEDS ORDERED: LORazepam 0.5mg tab ORAL PRN (04:15)
[2017-06-27 07:26] LABS: BASOPHILS % (AUTO) 1.2 % (0.0-2.0); EOSINOPHILS % (AUTO) 1.5 % (0.0-3.0); HEMATOCRIT 37.6 % (42.0-52.0); HEMOGLOBIN 12.8 G/DL (14.2-18.0); LYMPHOCYTES % (AUTO) 11.1 % (20.0-45.0); MEAN CORPUSCULAR VOLUME 95 FL (80-99); MONOCYTES % (AUTO) 9.6 % (1.0-10.0); NEUTROPHILS % (AUTO) 76.7 % (45.0-75.0); PLATELET COUNT 159 K/UL (150-450); RED BLOOD COUNT 3.95 M/UL (4.70-6.10); RED CELL DISTRIBUTION WIDTH 12.2 % (11.6-14.8); WHITE BLOOD COUNT 7.2 K/UL (4.8-10.8)
[2017-06-27 07:55] LABS: ALANINE AMINOTRANSFERASE < 6 U/L (12-78); ALKALINE PHOSPHATASE 65 U/L (46-116); ANION GAP 8 mmol/L (5-15); ASPARTATE AMINO TRANSFERASE 13 U/L (15-37); BILIRUBIN,TOTAL 0.6 MG/DL (0.2-1.0); BLOOD UREA NITROGEN 27 mg/dL (7-18); CALCIUM 7.9 MG/DL (8.5-10.1); CARBON DIOXIDE 24 MMOL/L (21-32); CHLORIDE 112 MMOL/L (98-107); CREATININE 1.1 MG/DL (0.55-1.30); POTASSIUM 3.7 MMOL/L (3.5-5.1); SODIUM 144 MMOL/L (136-145)
[2017-06-27 08:00] VITALS: BP 99/53
[2017-06-27] MEDS: Vancomycin 750mg/NS 250ml IVPB SCH ×2 (09:25→21:21)
[2017-06-27] MEDS: Heparin 5000 units/ml inj SUBQ SCH ×2 (09:26→21:36)
[2017-06-27] MEDS: Memantine 5 MG TAB ORAL SCH ×2 (09:28→18:08)
--- NOTE | 2017-06-27 09:42 | History and Physical Report ---
DATE OF ADMISSION: 06/26/2017 TIME SEEN: 3 p.m. ATTENDING PHYSICIAN: German Carlin D.O. CONSULTANTS: 1. Luzmaria Downey M.D. 2. Dr. Sadler. 3. Dakota Monroe M.D. 4. Crispin Aguirre M.D. CHIEF COMPLAINT: Altered mental status, pneumonia, UTIs, and sepsis. BRIEF HISTORY: A 77-year-old male from [facility], presented with the above-mentioned diagnosis. Currently in the ER, O2 NC, nonverbal, awaiting admission. PAST MEDICAL HISTORY: Encephalopathy, ATN, and malnutrition. PAST SURGICAL HISTORY: Unknown. MEDICATIONS: Tylenol, Naprosyn, Unasyn, Augmentin, and IV fluids. ALLERGIES: Denies. SOCIAL HISTORY: Unable to obtain secondary to the patient's condition. REVIEW OF SYSTEMS: Unavailable. PHYSICAL EXAMINATION: GENERAL: Calm in bed, nonverbal, O2 NC in place. VITAL SIGNS: Temperature is 99 degrees, pulse 105, respirations 20, and blood pressure 129/80. CARDIOVASCULAR: No murmur. LUNGS: Poor exchange. ABDOMEN: Bowel sounds positive. Nontender. Nondistended. EXTREMITIES: No cyanosis, clubbing, or edema. NEUROLOGIC: The patient moves all extremities, but not following directions. LABORATORY AND DIAGNOSTIC DATA: Labs at this time show CBC is normal. BMP shows chloride 109, BUN 19, and glucose 139. ALT 11. BNP is 502. Albumin is 2.5. Urinalysis shows 1+ leukocyte esterase. ASSESSMENT: 1. Altered mental status. 2. Pneumonia. 3. Urinary tract infection. 4. Diabetes. 5. Encephalopathy. 6. Hypertension. 7. Acute tubular necrosis. 8. Malnutrition. PLAN: 1. Continue premedications. 2. O2 and pulmonary treatment. 3. Antibiotic per Infectious Disease. 4. Blood pressure control. 5. Blood sugar control. 6. Dietary followup. 7. OT, PT, and dietary followup. 8. CBC and BMP in the morning. 9. Resume home medications. 10. Dr. Downey, Dr. Sadler, Dr. Monroe, and Dr. Aguirre to consult. German Carlin D.O. DR: Александр JOB#: [id number] CC:
[2017-06-27] MEDS: Cefepime HCl 2 GM in D5W 110 ML IV SCH ×2 (10:25→21:21)
[2017-06-27] MEDS: NovoLOG Insulin Flexpen SUBQ SCH ×3 (11:30→21:00)
--- NOTE | 2017-06-27 11:35 | General Progress Note ---
Assessment/Plan Problem List: (1) Pneumonia ICD Codes: J18.9 - Pneumonia, unspecified organism SNOMED: 046258427 (2) lethargy, 2/2metabolic encephalopathy/UTI (3) Protein-calorie malnutrition, severe ICD Codes: E43 - Unspecified severe protein-calorie malnutrition SNOMED: 859087710 (4) ATN (acute tubular necrosis) ICD Codes: N17.0 - Acute kidney failure with tubular necrosis SNOMED: 64729374 (5) Urinary tract infection ICD Codes: N39.0 - Urinary tract infection, site not specified SNOMED: 87451262 (6) Acute encephalopathy ICD Codes: G93.40 - Encephalopathy, unspecified SNOMED: 3865700 (7) Dehydration ICD Codes: E86.0 - Dehydration SNOMED: 06188050 (8) Sepsis ICD Codes: A41.9 - Sepsis, unspecified organism SNOMED: 41530026 Status: stable, progressing, tolerating diet Assessment/Plan o2 pulm tx abx ot pt diet cbc bmp am Subjective Constitutional: Reports: weakness Allergies: Coded Allergies: No Known Allergies (Unverified , 06/11/17) All Systems: reviewed and negative except above Subjective o2nc calm in bed Objective Last 24 Hour Vital Signs Date Time Temp Pulse Resp B/P (MAP) Pulse Ox O2 Delivery O2 Flow Rate FiO2 06/27/17 08:00 97.9 54 18 99/53 98 06/27/17 04:09 97.9 64 18 95/61 97 Nasal Cannula 06/27/17 04:09 Nasal Cannula 2.0 06/27/17 00:03 97.9 73 18 92/61 95 Nasal Cannula 06/26/17 23:00 99.7 77 18 101/62 96 Room Air 2.0 06/26/17 22:00 77 18 101/62 96 Room Air 06/26/17 19:03 99.7 95 18 109/75 95 Nasal Cannula 2.0 06/26/17 17:52 99.7 93 16 108/73 95 Nasal Cannula 2.0 06/26/17 16:08 99.7 92 17 125/68 96 Nasal Cannula 2.0 06/26/17 14:29 99.7 105 20 129/80 95 Nasal Cannula 2.0 06/26/17 13:04 100 20 139/78 96 Nasal Cannula 2.0 Intake and Output 06/26/17 06/27/17 19:00 07:00 Intake Total 1200 ml Output Total 200 ml 600 ml Balance 1000 ml -600 ml Intake IV Total 1200 ml Output Urine Total 200 ml 600 ml # Bowel Movements 3 Laboratory Tests 06/26/17 12:53: Lactic Acid Level 1.50 06/26/17 20:50: Urine Color Yellow, Urine Appearance Clear, Urine pH 6, Urine Specific [place] 1.015, Urine Protein 2+H, Urine Glucose (UA) Negative, Urine Ketones Negative, Urine Occult Blood 3+H, Urine Nitrite Negative, Urine Bilirubin Negative, Urine Urobilinogen 4H, Urine Leukocyte Esterase 1+H, Urine RBC 5-10H, Urine WBC 2-4, Urine Squamous Epithelial Cells None, Urine Bacteria Few 06/27/17 04:50: White Blood Count 7.2, Red Blood Count 3.95L, Hemoglobin 12.8L, Hematocrit 37.6L , Mean Corpuscular Volume 95, Mean Corpuscular Hemoglobin 32.5H, Mean Corpuscular Hemoglobin Concent 34.1, Red Cell Distribution Width 12.2, Platelet Count 159, Mean Platelet Volume 6.9, Neutrophils (%) (Auto) 76.7H, Lymphocytes ( %) (Auto) 11.1L, Monocytes (%) (Auto) 9.6, Eosinophils (%) (Auto) 1.5, Basophils (%) (Auto) 1.2, Sodium Level 144, Potassium Level 3.7, Chloride Level 112H, Carbon Dioxide Level 24, Anion Gap 8, Blood Urea Nitrogen 27H, Creatinine 1.1, Estimat Glomerular Filtration Rate , Glucose Level 102, Calcium Level 7.9L , Total Bilirubin 0.6, Aspartate Amino Transf (AST/SGOT) 13L, Alanine Aminotransferase (ALT/SGPT) < 6L, Alkaline Phosphatase 65, Total Protein 5.2L, Albumin 2.0L, Globulin 3.2 Height (Feet): 5 Height (Inches): 9.00 Weight (Pounds): 160 General Appearance: lethargic EENT: normal ENT inspection Neck: normal alignment Cardiovascular: normal peripheral pulses, normal rate, regular rhythm Respiratory/Chest: chest wall non-tender, decreased breath sounds Abdomen: normal bowel sounds, non tender, soft Extremities: normal inspection Edema: no edema noted Arm (L), no edema noted Arm (R), no edema noted Leg (L), no edema noted Leg (R), no edema noted Pedal (L), no edema noted Pedal (R), no edema noted Generalized Neurologic: motor weakness Skin: normal pigmentation, warm/dry MADDIE AMATO Jun 27, 2017 11:35
[2017-06-27 12:00] VITALS: BP 112/71
--- NOTE | 2017-06-27 15:03 | Consultation ---
DATE OF CONSULTATION: 06/27/2017 PSYCHIATRIC CONSULTATION CONSULTING PHYSICIAN: Dakota Monreo M.D. REQUESTING PHYSICIAN: German Carlin D.O. HISTORY OF PRESENT ILLNESS: This patient came in with sepsis, dehydration, confusion, and altered mental status. His cognition has declined below baseline and because of that his attending physician has requested daily psychiatric consultation with this patient to prevent any further decline in his cognition and manage his mood, lability, and psychosis. I saw and assessed him at bedside. He is confused and disorganized. He does exhibit some mood lability. His main reason for coming in were sepsis and dehydration. That is why he is at [facility], but this caused significant decline in his cognition secondary to the progression of his medical illness. PSYCHIATRIC HISTORY: He has overlying diagnosis of schizoaffective bipolar type, normally on Zyprexa 5 mg at bedtime, Lamictal 25 mg p.o. daily, and Lexapro 10 mg daily. ALLERGIES: He has no known drug allergies. MEDICAL HISTORY: The patient has a history of chronic obstructive pulmonary disease, sepsis, and dehydration. SOCIAL HISTORY: Lives in [facility]. Financially supported by [facility] and Medicare. SUBSTANCE ABUSE HISTORY: Denies drug or alcohol use. PSYCHIATRIC HISTORY: Schizoaffective, bipolar type. No signs of any previous psychiatric admissions per chart, but he is too disorganized to give me the details. FAMILY PSYCHIATRIC HISTORY: Denies. MENTAL STATUS EXAMINATION: Appearance disheveled. He is very irritable and agitated. Affect guarded and restricted. Insight poor. Mood is depressed and anxious. Motor activity, psychomotor retardation. Attention span is poor. Orientation x2. Speech is low volume and slurred. Thought process disorganized. Thought content denies. He does have paranoid delusions. Insight and judgment is poor. DIAGNOSIS: Schizoaffective bipolar type, rule out dementia with psychosis. PLAN: Plan for this patient is I am going to continue treating him with his Lamictal 25 mg daily as a mood stabilizer. In addition, I am going to continue him on Zyprexa 5 mg nightly for psychosis, Lexapro 10 mg daily to reduce depression and anxiety, but in addition to that, I am going to give him a p.r.n. of Ativan 0.5 mg q.6 h. p.r.n. anxiety and agitation. In addition to that, I am going to start this patient on Namenda at a dose of 5 mg twice a day to prevent any further decline in his cognition and he will continue to be followed by Psychiatry throughout his hospital course. He is seen and assessed at bedside. Chart reviewed and discussed with staff. The patient seen and assessed at bedside. I would like to thank Dr. German Carlin for this interesting consultation. Dakota Monroe M.D. DR: EMILY JOB#: [id number] CC:
[2017-06-27] MEDS ORDERED: NS 500ML ONE (15:31)
[2017-06-27] MEDS ORDERED: Tubing IV Secondary IV ONE (15:31)
[2017-06-27 16:00] VITALS: BP 109/59
--- NOTE | 2017-06-27 17:01 | Pulmonology Progress Note ---
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 Subjective Constitutional: Reports: no symptoms Respiratory: Reports: no symptoms Cardiovascular: Reports: no symptoms Gastrointestinal/Abdominal: Reports: no symptoms Genitourinary: Reports: no symptoms Allergies: Coded Allergies: No Known Allergies (Unverified , 06/11/17) Objective Last 24 Hour Vital Signs Date Time Temp Pulse Resp B/P (MAP) Pulse Ox O2 Delivery O2 Flow Rate FiO2 06/27/17 16:00 97.7 59 18 109/59 96 06/27/17 12:00 97.3 97 18 112/71 96 06/27/17 08:00 97.9 54 18 99/53 98 06/27/17 04:09 97.9 64 18 95/61 97 Nasal Cannula 06/27/17 04:09 Nasal Cannula 2.0 06/27/17 00:03 97.9 73 18 92/61 95 Nasal Cannula 06/26/17 23:00 99.7 77 18 101/62 96 Room Air 2.0 06/26/17 22:00 77 18 101/62 96 Room Air 06/26/17 19:03 99.7 95 18 109/75 95 Nasal Cannula 2.0 06/26/17 17:52 99.7 93 16 108/73 95 Nasal Cannula 2.0 Intake and Output 06/26/17 06/27/17 19:00 07:00 Intake Total 1200 ml Output Total 200 ml 600 ml Balance 1000 ml -600 ml IV Total 1200 ml Output Urine Total 200 ml 600 ml # Bowel Movements 3 HEENT: normocephalic, atraumatic Respiratory/Chest: chest wall non-tender, normal breath sounds Cardiovascular: normal peripheral pulses, normal rate Abdomen: normal bowel sounds, no organomegaly Genitourinary: normal external genitalia Extremities: no clubbing Skin: no lesions Laboratory Tests 06/26/17 20:50: Urine Color Yellow, Urine Appearance Clear, Urine pH 6, Urine Specific [place] 1.015, Urine Protein 2+H, Urine Glucose (UA) Negative, Urine Ketones Negative, Urine Occult Blood 3+H, Urine Nitrite Negative, Urine Bilirubin Negative, Urine Urobilinogen 4H, Urine Leukocyte Esterase 1+H, Urine RBC 5-10H, Urine WBC 2-4, Urine Squamous Epithelial Cells None, Urine Bacteria Few 06/27/17 04:50: White Blood Count 7.2, Red Blood Count 3.95L, Hemoglobin 12.8L, Hematocrit 37.6L , Mean Corpuscular Volume 95, Mean Corpuscular Hemoglobin 32.5H, Mean Corpuscular Hemoglobin Concent 34.1, Red Cell Distribution Width 12.2, Platelet Count 159, Mean Platelet Volume 6.9, Neutrophils (%) (Auto) 76.7H, Lymphocytes ( %) (Auto) 11.1L, Monocytes (%) (Auto) 9.6, Eosinophils (%) (Auto) 1.5, Basophils (%) (Auto) 1.2, Sodium Level 144, Potassium Level 3.7, Chloride Level 112H, Carbon Dioxide Level 24, Anion Gap 8, Blood Urea Nitrogen 27H, Creatinine 1.1, Estimat Glomerular Filtration Rate , Glucose Level 102, Calcium Level 7.9L , Total Bilirubin 0.6, Aspartate Amino Transf (AST/SGOT) 13L, Alanine Aminotransferase (ALT/SGPT) < 6L, Alkaline Phosphatase 65, Total Protein 5.2L, Albumin 2.0L, Globulin 3.2 Current Medications Medications (Trade) Dose Ordered Sig/Lopez Route PRN Reason Start Time Stop Time Status Last Admin Dose Admin Acetaminophen (Tylenol) 650 mg Q4H PRN ORAL T>100.5 06/26/17 17:30 07/26/17 17:29 Albuterol/ Ipratropium (Albuterol/ Ipratropium) 3 ml Q4H PRN HHN Shortness of Breath 06/26/17 17:30 07/01/17 17:29 Cefepime HCl 2 gm/ Dextrose 110 ml @ 220 mls/hr EVERY 12 HOURS IV 06/26/17 21:00 07/03/17 20:59 06/27/17 10:25 Dextrose (Dextrose 50%) STAT PRN IV Hypoglycemia 06/27/17 08:30 07/27/17 08:29 Escitalopram Oxalate (Lexapro) 10 mg DAILY ORAL 06/27/17 09:00 07/27/17 08:59 06/27/17 09:25 Heparin Sodium (Porcine) (Heparin 5000 units/ml) 5,000 units EVERY 12 HOURS SUBQ 06/26/17 21:00 07/26/17 20:59 06/27/17 09:26 Insulin Aspart (NovoLOG) BEFORE MEALS AND HS SUBQ 06/27/17 11:30 07/27/17 11:29 Lamotrigine (LaMICtal) 25 mg DAILY ORAL 06/27/17 09:00 07/27/17 08:59 06/27/17 09:25 Lorazepam (Ativan) 0.5 mg Q6H PRN ORAL For Anxiety 06/27/17 04:15 07/04/17 04:14 Memantine (Namenda) 5 mg BID ORAL 06/27/17 09:00 07/27/17 08:59 06/27/17 09:28 Morphine Sulfate (Morphine Sulfate) 2 mg Q4H PRN IVP PAIN 4-10 06/26/17 17:30 07/03/17 17:29 Olanzapine (ZyPREXA) 5 mg QHS ORAL 06/26/17 21:00 07/26/17 20:59 06/26/17 21:06 Ondansetron HCl (Zofran) 4 mg Q6H PRN IVP Nausea & Vomiting 06/26/17 17:30 07/26/17 17:29 Phenazopyridine HCl (Pyridium) 100 mg DAILYPRN PRN ORAL dysuria 06/26/17 17:30 07/26/17 17:29 Polyethylene Glycol (Miralax) 17 gm DAILYPRN PRN ORAL Constipation 06/26/17 17:30 07/26/17 17:29 Temazepam (Restoril) 15 mg HSPRN PRN ORAL Insomnia 06/26/17 21:00 07/03/17 20:59 Vancomycin HCl (Vanco rx to dose) 1 ea DAILY PRN MISC . 06/26/17 18:00 07/26/17 17:59 Vancomycin/Sodium Chloride 250 ml @ 166.667 mls/hr Q12HR IVPB 06/27/17 09:00 07/02/17 08:59 06/27/17 09:25 BAN PERLA Jun 27, 2017 17:01
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
[2017-06-27 20:00] VITALS: BP 127/76
--- NOTE | 2017-06-27 21:30 | Consultation ---
DATE OF CONSULTATION: 06/27/2017 INFECTIOUS DISEASES CONSULTATION CONSULTING PHYSICIAN: Sean Carroll M.D. PRIMARY ATTENDING PHYSICIAN: German Carlin D.O. REASON FOR CONSULT: Sepsis, UTI, and pneumonia. HISTORY OF PRESENT ILLNESS: The patient is a 77-year-old white male admitted from custodial because of altered mental status. He was less responsive. He had a temperature of 103.1. In the ER, he had pulse of 114 and no leukocytosis. He was started empirically on antibiotics and is doing better. He has no complaints except cough. PAST MEDICAL HISTORY: Significant for CVA, spastic left hemiparesis, dementia, dysphagia, thrombocytopenia, diabetes mellitus, COPD. [place] [facility] [place] at that time he had enterococcus UTI. ALLERGIES: No known drug allergies. MEDICATION: Getting insulin, Lexapro, lamotrigine, vancomycin, memantine, clonazepam, cefepime, heparin, and temazepam. SOCIAL HISTORY: [facility] resident. No history of alcohol, drug abuse, or smoking. No other history obtainable. PHYSICAL EXAMINATION: GENERAL APPEARANCE: The patient is awake, alert, and responsive, no acute distress. VITAL SIGNS: Temperature is 97.3, pulse 97, and blood pressure 112/71. HEAD AND NECK: He has no teeth. He has pink conjunctiva. HEART: S1 and S2 regular. LUNGS: Clear. ABDOMEN: Soft and nontender. EXTREMITIES: Has no edema. LABORATORY AND DIAGNOSTIC DATA: WBC 7.2, hemoglobin 12.8, hematocrit 37.6, and platelets 159. Sodium 144, potassium 3.7, chloride 112, bicarbonate 24, BUN 27, creatinine 1.1, and glucose 102. CT of the head, old bleeding or infarct in right external capsule, moderate atrophy of the brain. Chest x-ray showed left basilar pneumonia similar finding in previous x-ray. IMPRESSION: Sepsis with fever and tachycardia that is improving. The patient seems to have pneumonia, has history of urinary tract infection in the past and currently has pyuria. The patient has altered mental status, chronic obstructive pulmonary disease, Alzheimer's dementia, and diabetes mellitus. RECOMMENDATION: We will continue with vancomycin and cefepime. We will follow up the culture including blood and urine culture. At the end of my exam, I thank Dr. German Carlin for involving me in the care of this patient. Sean Carroll M.D. DR: GARRET JOB#: [id number] CC:
[2017-06-28] VITALS: BP 140/79
--- NOTE | 2017-06-28 01:45 | Consultation ---
DATE OF CONSULTATION: 06/26/2017 PSYCHOTHERAPY CONSULTATION PROGRESS NOTE TREATING ATTENDING PHYSICIAN: German Carlin D.O. HISTORY OF PRESENT ILLNESS: The patient from [facility]. The patient is 77 years old. He was admitted to the hospital for sepsis and dehydration. He was also confused and altered in his mental status. The patient has been labile and irritable in his mood and affect as well and for these reasons, he was referred for psychotherapeutic services. This clinician assessed this patient. The patient is very confused and disorganized. He is responsive to reality orientation. The patient has some anxiety and irritability. His mood has been labile. He has poor frustration tolerance. There is no indication of auditory or visual hallucinations at this time. There is no indication of suicidal or homicidal thoughts of ideation at this time, however, the patient is confused, disorganized and anxious 01:57 . The patient is redirectable and responsive to this clinician. PAST MEDICAL HISTORY: Includes History of muscle weakness, chronic obstructive pulmonary disease, chronic pain, acute kidney failure, anemia, and diabetes type 2. ALLERGIES: The patient has no known drug allergies. SUBSTANCE ABUSE HISTORY: There is no indication of alcohol use, illicit substances, or smoking cigarettes. PSYCHIATRIC HISTORY: The patient has a history of schizoaffective disorder, depressed type. The patient has been treated with psychotropic medications in the past. SOCIAL HISTORY: The patient is a 77-year-old male. This patient lives in [facility]. Financially sustained through [facility]. MENTAL STATUS EXAMINATION: The patient is alert and oriented to person and place. Mood is depressed and irritable as well as anxious. Affect is labile. Thought process, disorganized. Thought content, confused. He has poor attention and concentration. Poor insight, judgment, and impulse control. The patient is responsive to this clinician. Clinician provided the patient with reality orientation and supportive psychotherapy provided. The patient encouraged to participate in treatment milieu, addressing the patient's impulsivity, and poor frustration tolerance. Encouraging the patient to continue to participate in his treatment. This clinician has reviewed the patient's chart and discussed the treatment with treatment team. Parul Carnes PsyD. DR: MYAH JOB#: [id number] CC:
[2017-06-28 04:00] VITALS: BP 114/77
[2017-06-28] MEDS: NovoLOG Insulin Flexpen SUBQ SCH ×4 (05:54→21:29)
[2017-06-28 07:30] LABS: BASOPHILS % (AUTO) 1.2 % (0.0-2.0); EOSINOPHILS % (AUTO) 6.6 % (0.0-3.0); HEMATOCRIT 33.4 % (42.0-52.0); HEMOGLOBIN 11.3 G/DL (14.2-18.0); LYMPHOCYTES % (AUTO) 21.6 % (20.0-45.0); MEAN CORPUSCULAR VOLUME 96 FL (80-99); MONOCYTES % (AUTO) 9.1 % (1.0-10.0); NEUTROPHILS % (AUTO) 61.5 % (45.0-75.0); PLATELET COUNT 150 K/UL (150-450); RED BLOOD COUNT 3.49 M/UL (4.70-6.10); RED CELL DISTRIBUTION WIDTH 12.2 % (11.6-14.8)
[2017-06-28 07:55] LABS: ANION GAP 6 mmol/L (5-15); BLOOD UREA NITROGEN 27 mg/dL (7-18); CARBON DIOXIDE 26 MMOL/L (21-32); CHLORIDE 114 MMOL/L (98-107); CREATININE 0.9 MG/DL (0.55-1.30); POTASSIUM 3.5 MMOL/L (3.5-5.1); SODIUM 146 MMOL/L (136-145)
[2017-06-28 08:00] VITALS: BP 110/73
[2017-06-28] MEDS: Cefepime HCl 2 GM in D5W 110 ML IV SCH ×2 (08:40→21:27)
[2017-06-28] MEDS: Memantine 5 MG TAB ORAL SCH ×2 (08:40→17:24)
[2017-06-28] MEDS: Heparin 5000 units/ml inj SUBQ SCH ×2 (08:41→21:28)
[2017-06-28] MEDS: Vancomycin 750mg/NS 250ml IVPB SCH ×2 (09:33→21:26)
--- NOTE | 2017-06-28 11:56 | Infectious Diseases Prog Note ---
Assessment/Plan Assessment/Plan A; Sepsis Bacteremia MRSA colonization Pneumonia DM COPD P: Continue Vancomycin & Cefepime Will f/u cultures Subjective ROS Limited/Unobtainable: Yes Constitutional: Reports: no symptoms Respiratory: Reports: no symptoms Allergies: Coded Allergies: No Known Allergies (Unverified , 06/11/17) Objective Vital Signs Last 24 Hour Vital Signs Date Time Temp Pulse Resp B/P (MAP) Pulse Ox O2 Delivery O2 Flow Rate FiO2 06/28/17 08:00 97.9 61 20 110/73 97 06/28/17 04:00 97.7 53 18 114/77 98 06/28/17 04:00 98 Nasal Cannula 06/28/17 00:00 98 Nasal Cannula 06/28/17 00:00 98.2 61 20 140/79 98 06/27/17 20:00 97 Nasal Cannula 2.0 06/27/17 20:00 99.1 65 20 127/76 97 06/27/17 16:00 97.7 59 18 109/59 96 06/27/17 12:00 97.3 97 18 112/71 96 Height (Feet): 5 Height (Inches): 9.00 Weight (Pounds): 160 General Appearance: no acute distress HEENT: mucous membranes moist Respiratory/Chest: lungs clear Cardiovascular: normal rate Abdomen: soft, non tender Extremities: no edema Neurologic/Psychiatric: alert, responsive Microbiology Date/Time Source Procedure Growth Status 06/26/17 20:20 Blood Blood Culture - Preliminary NO GROWTH AFTER 24 HOURS Resulted 06/26/17 20:00 Blood Blood Culture - Preliminary NO GROWTH AFTER 24 HOURS Resulted 06/26/17 10:10 Blood Blood Culture - Preliminary NO GROWTH AFTER 24 HOURS Resulted 06/26/17 10:10 Blood Blood Culture - Preliminary Resulted 06/26/17 10:10 Nasal Nares MRSA Culture - Final Staphylococcus Aureus - Mrsa Complete 06/26/17 10:10 Rectum VRE Culture - Final NO VANCOMYCIN RESISTANT ENTEROCOCCUS ... Complete Laboratory Tests Test 06/28/17 06:15 06/28/17 08:35 White Blood Count 5.0 K/UL (4.8-10.8) Red Blood Count 3.49 M/UL (4.70-6.10) L Hemoglobin 11.3 G/DL (14.2-18.0) L Hematocrit 33.4 % (42.0-52.0) L Mean Corpuscular Volume 96 FL (80-99) Mean Corpuscular Hemoglobin 32.4 PG (27.0-31.0) H Mean Corpuscular Hemoglobin Concent 33.9 G/DL (32.0-36.0) Red Cell Distribution Width 12.2 % (11.6-14.8) Platelet Count 150 K/UL (150-450) Mean Platelet Volume 7.2 FL (6.5-10.1) Neutrophils (%) (Auto) 61.5 % (45.0-75.0) Lymphocytes (%) (Auto) 21.6 % (20.0-45.0) Monocytes (%) (Auto) 9.1 % (1.0-10.0) Eosinophils (%) (Auto) 6.6 % (0.0-3.0) H Basophils (%) (Auto) 1.2 % (0.0-2.0) Sodium Level 146 MMOL/L (136-145) H Potassium Level 3.5 MMOL/L (3.5-5.1) Chloride Level 114 MMOL/L (98-107) H Carbon Dioxide Level 26 MMOL/L (21-32) Anion Gap 6 mmol/L (5-15) Blood Urea Nitrogen 27 mg/dL (7-18) H Creatinine 0.9 MG/DL (0.55-1.30) Estimat Glomerular Filtration Rate mL/min (>60) Glucose Level 83 MG/DL (74-106) Calcium Level 8.0 MG/DL (8.5-10.1) L Vancomycin Level Trough 14.1 ug/mL (5.0-12.0) H Current Medications Medications (Trade) Dose Ordered Sig/Lopez Route PRN Reason Start Time Stop Time Status Last Admin Dose Admin Acetaminophen (Tylenol) 650 mg Q4H PRN ORAL T>100.5 06/26/17 17:30 07/26/17 17:29 Albuterol/ Ipratropium (Albuterol/ Ipratropium) 3 ml Q4H PRN HHN Shortness of Breath 06/26/17 17:30 07/01/17 17:29 Cefepime HCl 2 gm/ Dextrose 110 ml @ 220 mls/hr EVERY 12 HOURS IV 06/26/17 21:00 07/03/17 20:59 06/28/17 08:40 Dextrose (Dextrose 50%) STAT PRN IV Hypoglycemia 06/27/17 08:30 07/27/17 08:29 Escitalopram Oxalate (Lexapro) 10 mg DAILY ORAL 06/27/17 09:00 07/27/17 08:59 06/28/17 08:40 Heparin Sodium (Porcine) (Heparin 5000 units/ml) 5,000 units EVERY 12 HOURS SUBQ 06/26/17 21:00 07/26/17 20:59 06/28/17 08:41 Insulin Aspart (NovoLOG) BEFORE MEALS AND HS SUBQ 06/27/17 11:30 07/27/17 11:29 Lamotrigine (LaMICtal) 25 mg DAILY ORAL 06/27/17 09:00 07/27/17 08:59 06/28/17 08:40 Lorazepam (Ativan) 0.5 mg Q6H PRN ORAL For Anxiety 06/27/17 04:15 07/04/17 04:14 Memantine (Namenda) 5 mg BID ORAL 06/27/17 09:00 07/27/17 08:59 06/28/17 08:40 Morphine Sulfate (Morphine Sulfate) 2 mg Q4H PRN IVP PAIN 4-10 06/26/17 17:30 07/03/17 17:29 Olanzapine (ZyPREXA) 5 mg QHS ORAL 06/26/17 21:00 07/26/17 20:59 06/27/17 21:22 Ondansetron HCl (Zofran) 4 mg Q6H PRN IVP Nausea & Vomiting 06/26/17 17:30 07/26/17 17:29 Phenazopyridine HCl (Pyridium) 100 mg DAILYPRN PRN ORAL dysuria 06/26/17 17:30 07/26/17 17:29 Polyethylene Glycol (Miralax) 17 gm DAILYPRN PRN ORAL Constipation 06/26/17 17:30 07/26/17 17:29 Temazepam (Restoril) 15 mg HSPRN PRN ORAL Insomnia 06/26/17 21:00 07/03/17 20:59 Vancomycin HCl (Vanco rx to dose) 1 ea DAILY PRN MISC . 06/26/17 18:00 07/26/17 17:59 Vancomycin/Sodium Chloride 250 ml @ 166.667 mls/hr Q12HR IVPB 06/27/17 09:00 07/02/17 08:59 06/28/17 09:33 ANTHONY BUCKLEY Jun 28, 2017 11:56
[2017-06-28 12:00] VITALS: BP 137/68
--- NOTE | 2017-06-28 12:15 | Progress Note ---
DATE: 06/28/2017 SUBJECTIVE: This is a 77-year-old patient with sepsis and dehydration. This patient is confused, disorganized. Mood labile. He has had no logical plan for him own self care. treatment at this time. MENTAL STATUS EXAMINATION: This is a 77-year-old male with psychomotor agitation. Mood is irritable and agitated. Affect guarded and restricted. Thought process disorganized and logical. Denies any current suicidal or homicidal thoughts. Insight and judgement is poor. DIAGNOSIS: Paranoid schizophrenia acute exacerbation. PLAN: Plan for this patient is I am going to continue treatment with Zyprexa and Depakote to stabilize his mood. Provide with supportive therapy. Namenda 5 mg twice a day. Chart reviewed. Discussed with staff. Seen and assessed at bedside. Dakota Monroe M.D. DR: DUSTIN JOB#: [id number] CC:
--- NOTE | 2017-06-28 13:35 | General Progress Note ---
Assessment/Plan Problem List: (1) Pneumonia ICD Codes: J18.9 - Pneumonia, unspecified organism SNOMED: 506494580 (2) lethargy, 2/2metabolic encephalopathy/UTI (3) Protein-calorie malnutrition, severe ICD Codes: E43 - Unspecified severe protein-calorie malnutrition SNOMED: 309505949 (4) ATN (acute tubular necrosis) ICD Codes: N17.0 - Acute kidney failure with tubular necrosis SNOMED: 33148250 (5) Urinary tract infection ICD Codes: N39.0 - Urinary tract infection, site not specified SNOMED: 52594746 (6) Acute encephalopathy ICD Codes: G93.40 - Encephalopathy, unspecified SNOMED: 9024835 (7) Dehydration ICD Codes: E86.0 - Dehydration SNOMED: 18353485 (8) Sepsis ICD Codes: A41.9 - Sepsis, unspecified organism SNOMED: 49409047 Status: stable, progressing, tolerating diet Assessment/Plan o2 pulm tx abx ot pt diet cbc bmp am dc plan Subjective Constitutional: Reports: weakness Allergies: Coded Allergies: No Known Allergies (Unverified , 06/11/17) All Systems: reviewed and negative except above Subjective sleepy calm in bed Objective Last 24 Hour Vital Signs Date Time Temp Pulse Resp B/P (MAP) Pulse Ox O2 Delivery O2 Flow Rate FiO2 06/28/17 08:00 97.9 61 20 110/73 97 06/28/17 04:00 97.7 53 18 114/77 98 06/28/17 04:00 98 Nasal Cannula 06/28/17 00:00 98 Nasal Cannula 06/28/17 00:00 98.2 61 20 140/79 98 06/27/17 20:00 97 Nasal Cannula 2.0 06/27/17 20:00 99.1 65 20 127/76 97 06/27/17 16:00 97.7 59 18 109/59 96 Intake and Output 06/27/17 06/28/17 19:00 07:00 Intake Total 883.334 ml 553.334 ml Output Total 4 ml Balance 879.334 ml 553.334 ml Intake Oral 330 ml IV Total 553.334 ml 553.334 ml Stool Total 4 ml # Voids 7 2 # Bowel Movements 1 1 Laboratory Tests 06/28/17 06:15: White Blood Count 5.0, Red Blood Count 3.49L, Hemoglobin 11.3L, Hematocrit 33.4L , Mean Corpuscular Volume 96, Mean Corpuscular Hemoglobin 32.4H, Mean Corpuscular Hemoglobin Concent 33.9, Red Cell Distribution Width 12.2, Platelet Count 150, Mean Platelet Volume 7.2, Neutrophils (%) (Auto) 61.5, Lymphocytes (% ) (Auto) 21.6, Monocytes (%) (Auto) 9.1, Eosinophils (%) (Auto) 6.6H, Basophils (%) (Auto) 1.2, Sodium Level 146H, Potassium Level 3.5, Chloride Level 114H, Carbon Dioxide Level 26, Anion Gap 6, Blood Urea Nitrogen 27H, Creatinine 0.9, Estimat Glomerular Filtration Rate , Glucose Level 83, Calcium Level 8.0L 06/28/17 08:35: Vancomycin Level Trough 14.1H Height (Feet): 5 Height (Inches): 9.00 Weight (Pounds): 160 General Appearance: lethargic EENT: normal ENT inspection Neck: normal alignment Cardiovascular: normal peripheral pulses, normal rate, regular rhythm Respiratory/Chest: decreased breath sounds Abdomen: normal bowel sounds, non tender, soft Extremities: normal inspection Edema: no edema noted Arm (L), no edema noted Arm (R), no edema noted Leg (L), no edema noted Leg (R), no edema noted Pedal (L), no edema noted Pedal (R), no edema noted Generalized Neurologic: motor weakness Skin: normal pigmentation, warm/dry MADDIE AMATO Jun 28, 2017 13:35
[2017-06-28 16:00] VITALS: BP 139/66
--- NOTE | 2017-06-28 19:01 | Pulmonology Progress Note ---
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 Subjective ROS Limited/Unobtainable: No Constitutional: Reports: no symptoms HEENT: Repors: no symptoms Respiratory: Reports: no symptoms Allergies: Coded Allergies: No Known Allergies (Unverified , 06/11/17) Objective Last 24 Hour Vital Signs Date Time Temp Pulse Resp B/P (MAP) Pulse Ox O2 Delivery O2 Flow Rate FiO2 06/28/17 16:00 97.9 64 20 139/66 96 06/28/17 12:00 98.4 61 20 137/68 95 06/28/17 08:00 97.9 61 20 110/73 97 06/28/17 04:00 97.7 53 18 114/77 98 06/28/17 04:00 98 Nasal Cannula 06/28/17 00:00 98 Nasal Cannula 06/28/17 00:00 98.2 61 20 140/79 98 06/27/17 20:00 97 Nasal Cannula 2.0 06/27/17 20:00 99.1 65 20 127/76 97 Intake and Output 06/27/17 06/28/17 19:00 07:00 Intake Total 883.334 ml 553.334 ml Output Total 4 ml Balance 879.334 ml 553.334 ml Intake Oral 330 ml IV Total 553.334 ml 553.334 ml Stool Total 4 ml # Voids 7 2 # Bowel Movements 1 1 General Appearance: WD/WN, no acute distress HEENT: atraumatic Respiratory/Chest: chest wall non-tender, lungs clear Cardiovascular: normal peripheral pulses, normal rate Abdomen: normal bowel sounds, soft, non tender Extremities: no cyanosis Skin: no rash, no ulcers 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 Complete Laboratory Tests 06/28/17 06:15: White Blood Count 5.0, Red Blood Count 3.49L, Hemoglobin 11.3L, Hematocrit 33.4L , Mean Corpuscular Volume 96, Mean Corpuscular Hemoglobin 32.4H, Mean Corpuscular Hemoglobin Concent 33.9, Red Cell Distribution Width 12.2, Platelet Count 150, Mean Platelet Volume 7.2, Neutrophils (%) (Auto) 61.5, Lymphocytes (% ) (Auto) 21.6, Monocytes (%) (Auto) 9.1, Eosinophils (%) (Auto) 6.6H, Basophils (%) (Auto) 1.2, Sodium Level 146H, Potassium Level 3.5, Chloride Level 114H, Carbon Dioxide Level 26, Anion Gap 6, Blood Urea Nitrogen 27H, Creatinine 0.9, Estimat Glomerular Filtration Rate , Glucose Level 83, Calcium Level 8.0L 06/28/17 08:35: Vancomycin Level Trough 14.1H Current Medications Medications (Trade) Dose Ordered Sig/Lopez Route PRN Reason Start Time Stop Time Status Last Admin Dose Admin Acetaminophen (Tylenol) 650 mg Q4H PRN ORAL T>100.5 06/26/17 17:30 07/26/17 17:29 Albuterol/ Ipratropium (Albuterol/ Ipratropium) 3 ml Q4H PRN HHN Shortness of Breath 06/26/17 17:30 07/01/17 17:29 Cefepime HCl 2 gm/ Dextrose 110 ml @ 220 mls/hr EVERY 12 HOURS IV 06/26/17 21:00 07/03/17 20:59 06/28/17 08:40 Dextrose (Dextrose 50%) STAT PRN IV Hypoglycemia 06/27/17 08:30 07/27/17 08:29 Escitalopram Oxalate (Lexapro) 10 mg DAILY ORAL 06/27/17 09:00 07/27/17 08:59 06/28/17 08:40 Heparin Sodium (Porcine) (Heparin 5000 units/ml) 5,000 units EVERY 12 HOURS SUBQ 06/26/17 21:00 07/26/17 20:59 06/28/17 08:41 Insulin Aspart (NovoLOG) BEFORE MEALS AND HS SUBQ 06/27/17 11:30 07/27/17 11:29 06/28/17 11:54 Lamotrigine (LaMICtal) 25 mg DAILY ORAL 06/27/17 09:00 07/27/17 08:59 06/28/17 08:40 Lorazepam (Ativan) 0.5 mg Q6H PRN ORAL For Anxiety 06/27/17 04:15 07/04/17 04:14 Memantine (Namenda) 5 mg BID ORAL 06/27/17 09:00 07/27/17 08:59 06/28/17 17:24 Morphine Sulfate (Morphine Sulfate) 2 mg Q4H PRN IVP PAIN 4-10 06/26/17 17:30 07/03/17 17:29 Olanzapine (ZyPREXA) 5 mg QHS ORAL 06/26/17 21:00 07/26/17 20:59 06/27/17 21:22 Ondansetron HCl (Zofran) 4 mg Q6H PRN IVP Nausea & Vomiting 06/26/17 17:30 07/26/17 17:29 Phenazopyridine HCl (Pyridium) 100 mg DAILYPRN PRN ORAL dysuria 06/26/17 17:30 07/26/17 17:29 Polyethylene Glycol (Miralax) 17 gm DAILYPRN PRN ORAL Constipation 06/26/17 17:30 07/26/17 17:29 Temazepam (Restoril) 15 mg HSPRN PRN ORAL Insomnia 06/26/17 21:00 07/03/17 20:59 Vancomycin HCl (Vanco rx to dose) 1 ea DAILY PRN MISC . 06/26/17 18:00 07/26/17 17:59 Vancomycin/Sodium Chloride 250 ml @ 166.667 mls/hr Q12HR IVPB 06/27/17 09:00 07/02/17 08:59 06/28/17 09:33 BAN PERLA Jun 28, 2017 19:01
[2017-06-28 20:00] VITALS: BP 122/67
[2017-06-29] VITALS: BP 152/85
[2017-06-29 04:00] VITALS: BP 122/79
[2017-06-29] MEDS: NovoLOG Insulin Flexpen SUBQ SCH ×3 (06:30→16:30)
[2017-06-29 07:47] LABS: ANION GAP 5 mmol/L (5-15); BLOOD UREA NITROGEN 18 mg/dL (7-18); CALCIUM 8.1 MG/DL (8.5-10.1); CARBON DIOXIDE 25 MMOL/L (21-32); CHLORIDE 116 MMOL/L (98-107); CREATININE 0.7 MG/DL (0.55-1.30); POTASSIUM 3.9 MMOL/L (3.5-5.1); SODIUM 146 MMOL/L (136-145)
[2017-06-29 07:56] LABS: BASOPHILS % (AUTO) 2.6 % (0.0-2.0); EOSINOPHILS % (AUTO) 8.7 % (0.0-3.0); HEMATOCRIT 33.8 % (42.0-52.0); HEMOGLOBIN 11.7 G/DL (14.2-18.0); LYMPHOCYTES % (AUTO) 30.2 % (20.0-45.0); MEAN CORPUSCULAR VOLUME 97 FL (80-99); MONOCYTES % (AUTO) 8.5 % (1.0-10.0); NEUTROPHILS % (AUTO) 49.9 % (45.0-75.0); PLATELET COUNT 110 K/UL (150-450); RED CELL DISTRIBUTION WIDTH 12.3 % (11.6-14.8); WHITE BLOOD COUNT 3.5 K/UL (4.8-10.8)
[2017-06-29 08:00] VITALS: BP 139/74
[2017-06-29] MEDS: Memantine 5 MG TAB ORAL SCH ×2 (08:33→17:03)
[2017-06-29] MEDS: Cefepime HCl 2 GM in D5W 110 ML IV SCH (08:33)
[2017-06-29] MEDS: Heparin 5000 units/ml inj SUBQ SCH (08:33)
[2017-06-29] MEDS: Vancomycin 750mg/NS 250ml IVPB SCH (09:58)
--- NOTE | 2017-06-29 10:32 | Infectious Diseases Prog Note ---
Assessment/Plan Assessment/Plan A; Sepsis CoANS in blood culture, likely contamination MRSA colonization Pneumonia DM COPD P: discontinue Vancomycin , continue Cefepime Will f/u cultures Subjective ROS Limited/Unobtainable: Yes Allergies: Coded Allergies: No Known Allergies (Unverified , 06/11/17) Objective Vital Signs Last 24 Hour Vital Signs Date Time Temp Pulse Resp B/P (MAP) Pulse Ox O2 Delivery O2 Flow Rate FiO2 06/29/17 04:00 99 Nasal Cannula 2.0 06/29/17 04:00 97.3 51 20 122/79 99 06/29/17 00:00 97.9 54 20 152/85 98 06/29/17 00:00 98 Nasal Cannula 2.0 06/28/17 20:00 95 Nasal Cannula 2.0 06/28/17 20:00 97.7 88 20 122/67 95 06/28/17 16:00 97.9 64 20 139/66 96 06/28/17 12:00 98.4 61 20 137/68 95 Height (Feet): 5 Height (Inches): 9.00 Weight (Pounds): 160 General Appearance: no acute distress HEENT: mucous membranes moist Respiratory/Chest: lungs clear Cardiovascular: normal rate Abdomen: soft, non tender Extremities: no edema Neurologic/Psychiatric: other - sleeping Microbiology Date/Time Source Procedure Growth Status 06/26/17 20:20 Blood Blood Culture - Preliminary NO GROWTH AFTER 48 HOURS Resulted 06/26/17 20:00 Blood Blood Culture - Preliminary NO GROWTH AFTER 48 HOURS Resulted Laboratory Tests Test 06/29/17 06:15 White Blood Count 3.5 K/UL (4.8-10.8) L Red Blood Count 3.50 M/UL (4.70-6.10) L Hemoglobin 11.7 G/DL (14.2-18.0) L Hematocrit 33.8 % (42.0-52.0) L Mean Corpuscular Volume 97 FL (80-99) Mean Corpuscular Hemoglobin 33.5 PG (27.0-31.0) H Mean Corpuscular Hemoglobin Concent 34.7 G/DL (32.0-36.0) Red Cell Distribution Width 12.3 % (11.6-14.8) Platelet Count 110 K/UL (150-450) L Mean Platelet Volume 6.2 FL (6.5-10.1) L Neutrophils (%) (Auto) 49.9 % (45.0-75.0) Lymphocytes (%) (Auto) 30.2 % (20.0-45.0) Monocytes (%) (Auto) 8.5 % (1.0-10.0) Eosinophils (%) (Auto) 8.7 % (0.0-3.0) H Basophils (%) (Auto) 2.6 % (0.0-2.0) H Sodium Level 146 MMOL/L (136-145) H Potassium Level 3.9 MMOL/L (3.5-5.1) Chloride Level 116 MMOL/L (98-107) H Carbon Dioxide Level 25 MMOL/L (21-32) Anion Gap 5 mmol/L (5-15) Blood Urea Nitrogen 18 mg/dL (7-18) Creatinine 0.7 MG/DL (0.55-1.30) Estimat Glomerular Filtration Rate mL/min (>60) Glucose Level 93 MG/DL (74-106) Calcium Level 8.1 MG/DL (8.5-10.1) L Current Medications Medications (Trade) Dose Ordered Sig/Lopez Route PRN Reason Start Time Stop Time Status Last Admin Dose Admin Acetaminophen (Tylenol) 650 mg Q4H PRN ORAL T>100.5 06/26/17 17:30 07/26/17 17:29 Albuterol/ Ipratropium (Albuterol/ Ipratropium) 3 ml Q4H PRN HHN Shortness of Breath 06/26/17 17:30 07/01/17 17:29 Cefepime HCl 2 gm/ Dextrose 110 ml @ 220 mls/hr EVERY 12 HOURS IV 06/26/17 21:00 07/03/17 20:59 06/29/17 08:33 Dextrose (Dextrose 50%) STAT PRN IV Hypoglycemia 06/27/17 08:30 07/27/17 08:29 Escitalopram Oxalate (Lexapro) 10 mg DAILY ORAL 06/27/17 09:00 07/27/17 08:59 06/29/17 08:33 Heparin Sodium (Porcine) (Heparin 5000 units/ml) 5,000 units EVERY 12 HOURS SUBQ 06/26/17 21:00 07/26/17 20:59 06/28/17 21:28 Insulin Aspart (NovoLOG) BEFORE MEALS AND HS SUBQ 06/27/17 11:30 07/27/17 11:29 06/28/17 21:29 Lamotrigine (LaMICtal) 25 mg DAILY ORAL 06/27/17 09:00 07/27/17 08:59 06/29/17 08:33 Lorazepam (Ativan) 0.5 mg Q6H PRN ORAL For Anxiety 06/27/17 04:15 07/04/17 04:14 Memantine (Namenda) 5 mg BID ORAL 06/27/17 09:00 07/27/17 08:59 06/29/17 08:33 Morphine Sulfate (Morphine Sulfate) 2 mg Q4H PRN IVP PAIN 4-10 06/26/17 17:30 07/03/17 17:29 Olanzapine (ZyPREXA) 5 mg QHS ORAL 06/26/17 21:00 07/26/17 20:59 06/28/17 21:27 Ondansetron HCl (Zofran) 4 mg Q6H PRN IVP Nausea & Vomiting 06/26/17 17:30 07/26/17 17:29 Phenazopyridine HCl (Pyridium) 100 mg DAILYPRN PRN ORAL dysuria 06/26/17 17:30 07/26/17 17:29 Polyethylene Glycol (Miralax) 17 gm DAILYPRN PRN ORAL Constipation 06/26/17 17:30 07/26/17 17:29 Temazepam (Restoril) 15 mg HSPRN PRN ORAL Insomnia 06/26/17 21:00 07/03/17 20:59 Vancomycin HCl (Vanco rx to dose) 1 ea DAILY PRN MISC . 06/26/17 18:00 07/26/17 17:59 Vancomycin/Sodium Chloride 250 ml @ 166.667 mls/hr Q12HR IVPB 06/27/17 09:00 07/02/17 08:59 06/29/17 09:58 ANTHONY BUCKLEY Jun 29, 2017 10:32
[2017-06-29 12:00] VITALS: BP 136/70
--- NOTE | 2017-06-29 15:13 | Cardiology Report ---
APPROVED REPORT EKG Measurement Heart [id number] Sinus tachycardia Septal infarct, age undetermined Abnormal ECG
--- NOTE | 2017-06-29 15:18 | General Progress Note ---
Assessment/Plan Problem List: (1) Pneumonia ICD Codes: J18.9 - Pneumonia, unspecified organism SNOMED: 213224750 (2) lethargy, 2/2metabolic encephalopathy/UTI (3) Protein-calorie malnutrition, severe ICD Codes: E43 - Unspecified severe protein-calorie malnutrition SNOMED: 179383333 (4) ATN (acute tubular necrosis) ICD Codes: N17.0 - Acute kidney failure with tubular necrosis SNOMED: 75342407 (5) Urinary tract infection ICD Codes: N39.0 - Urinary tract infection, site not specified SNOMED: 87848014 (6) Acute encephalopathy ICD Codes: G93.40 - Encephalopathy, unspecified SNOMED: 4050046 (7) Dehydration ICD Codes: E86.0 - Dehydration SNOMED: 04560588 (8) Sepsis ICD Codes: A41.9 - Sepsis, unspecified organism SNOMED: 99227650 Status: stable, progressing, tolerating diet Assessment/Plan o2 pulm tx abx ot pt diet dc plan Subjective Constitutional: Reports: weakness Allergies: Coded Allergies: No Known Allergies (Unverified , 06/11/17) All Systems: reviewed and negative except above Subjective o2nc calm in bed Objective Last 24 Hour Vital Signs Date Time Temp Pulse Resp B/P (MAP) Pulse Ox O2 Delivery O2 Flow Rate FiO2 06/29/17 12:00 98.0 74 20 136/70 98 06/29/17 08:00 97.3 77 18 139/74 97 06/29/17 04:00 99 Nasal Cannula 2.0 06/29/17 04:00 97.3 51 20 122/79 99 06/29/17 00:00 97.9 54 20 152/85 98 06/29/17 00:00 98 Nasal Cannula 2.0 06/28/17 20:00 95 Nasal Cannula 2.0 06/28/17 20:00 97.7 88 20 122/67 95 06/28/17 16:00 97.9 64 20 139/66 96 Intake and Output 06/28/17 06/29/17 19:00 07:00 Intake Total 680 ml 553.334 ml Output Total 1600 ml Balance 680 ml -1046.666 ml Intake Oral 680 ml IV Total 553.334 ml Output Urine Total 1600 ml # Voids 2 Laboratory Tests 06/29/17 06:15: White Blood Count 3.5L, Red Blood Count 3.50L, Hemoglobin 11.7L, Hematocrit 33.8L, Mean Corpuscular Volume 97, Mean Corpuscular Hemoglobin 33.5H, Mean Corpuscular Hemoglobin Concent 34.7, Red Cell Distribution Width 12.3, Platelet Count 110L, Mean Platelet Volume 6.2L, Neutrophils (%) (Auto) 49.9, Lymphocytes (%) (Auto) 30.2, Monocytes (%) (Auto) 8.5, Eosinophils (%) (Auto) 8.7H, Basophils (%) (Auto) 2.6H, Sodium Level 146H, Potassium Level 3.9, Chloride Level 116H, Carbon Dioxide Level 25, Anion Gap 5, Blood Urea Nitrogen 18, Creatinine 0.7, Estimat Glomerular Filtration Rate , Glucose Level 93, Calcium Level 8.1L Height (Feet): 5 Height (Inches): 9.00 Weight (Pounds): 160 General Appearance: lethargic EENT: normal ENT inspection Neck: normal alignment Cardiovascular: normal peripheral pulses, normal rate, regular rhythm Respiratory/Chest: chest wall non-tender, lungs clear, normal breath sounds Abdomen: normal bowel sounds, non tender, soft Extremities: normal inspection Edema: no edema noted Arm (L), no edema noted Arm (R), no edema noted Leg (L), no edema noted Leg (R), no edema noted Pedal (L), no edema noted Pedal (R), no edema noted Generalized Neurologic: motor weakness Skin: normal pigmentation, warm/dry MADDIE AMATO Jun 29, 2017 15:18
[2017-06-29] MEDS ORDERED: ZYPREXA5 MG ORAL (15:59)
[2017-06-29] MEDS ORDERED: NAMENDA5 MG ORAL (16:00)
[2017-06-29] MEDS ORDERED: NOVOLOG100 UNIT/3 SUBQ (16:01)
[2017-06-29] MEDS ORDERED: DUONEB 0.5-3(2.53 ML HHN (16:02)
[2017-06-29 16:03] VITALS: BP 150/96
[2017-06-29] MEDS ORDERED: LEVAQUIN750 MG ORAL (16:04)
--- NOTE | 2017-06-29 17:00 | Pulmonology Progress Note ---
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 dc planning in process Subjective ROS Limited/Unobtainable: No Constitutional: Reports: no symptoms HEENT: Repors: no symptoms Respiratory: Reports: no symptoms Allergies: Coded Allergies: No Known Allergies (Unverified , 06/11/17) Objective Last 24 Hour Vital Signs Date Time Temp Pulse Resp B/P (MAP) Pulse Ox O2 Delivery O2 Flow Rate FiO2 06/29/17 16:03 97.2 53 21 150/96 96 Nasal Cannula 2.0 06/29/17 12:00 98.0 74 20 136/70 98 06/29/17 08:00 97.3 77 18 139/74 97 06/29/17 04:00 99 Nasal Cannula 2.0 06/29/17 04:00 97.3 51 20 122/79 99 06/29/17 00:00 97.9 54 20 152/85 98 06/29/17 00:00 98 Nasal Cannula 2.0 06/28/17 20:00 95 Nasal Cannula 2.0 06/28/17 20:00 97.7 88 20 122/67 95 Intake and Output 06/28/17 06/29/17 19:00 07:00 Intake Total 680 ml 553.334 ml Output Total 1600 ml Balance 680 ml -1046.666 ml Intake Oral 680 ml IV Total 553.334 ml Output Urine Total 1600 ml # Voids 2 General Appearance: WD/WN HEENT: normocephalic, atraumatic Respiratory/Chest: chest wall non-tender, lungs clear Cardiovascular: normal rate, no JVD Abdomen: soft, non tender Extremities: no cyanosis Skin: no rash Microbiology Date/Time Source Procedure Growth Status 06/26/17 20:20 Blood Blood Culture - Preliminary NO GROWTH AFTER 48 HOURS Resulted 06/26/17 20:00 Blood Blood Culture - Preliminary NO GROWTH AFTER 48 HOURS Resulted Laboratory Tests 06/29/17 06:15: White Blood Count 3.5L, Red Blood Count 3.50L, Hemoglobin 11.7L, Hematocrit 33.8L, Mean Corpuscular Volume 97, Mean Corpuscular Hemoglobin 33.5H, Mean Corpuscular Hemoglobin Concent 34.7, Red Cell Distribution Width 12.3, Platelet Count 110L, Mean Platelet Volume 6.2L, Neutrophils (%) (Auto) 49.9, Lymphocytes (%) (Auto) 30.2, Monocytes (%) (Auto) 8.5, Eosinophils (%) (Auto) 8.7H, Basophils (%) (Auto) 2.6H, Sodium Level 146H, Potassium Level 3.9, Chloride Level 116H, Carbon Dioxide Level 25, Anion Gap 5, Blood Urea Nitrogen 18, Creatinine 0.7, Estimat Glomerular Filtration Rate , Glucose Level 93, Calcium Level 8.1L Current Medications Medications (Trade) Dose Ordered Sig/Lopez Route PRN Reason Start Time Stop Time Status Last Admin Dose Admin Acetaminophen (Tylenol) 650 mg Q4H PRN ORAL T>100.5 06/26/17 17:30 07/26/17 17:29 Albuterol/ Ipratropium (Albuterol/ Ipratropium) 3 ml Q4H PRN HHN Shortness of Breath 06/26/17 17:30 07/01/17 17:29 Dextrose (Dextrose 50%) STAT PRN IV Hypoglycemia 06/27/17 08:30 07/27/17 08:29 Escitalopram Oxalate (Lexapro) 10 mg DAILY ORAL 06/27/17 09:00 07/27/17 08:59 06/29/17 08:33 Heparin Sodium (Porcine) (Heparin 5000 units/ml) 5,000 units EVERY 12 HOURS SUBQ 06/26/17 21:00 07/26/17 20:59 06/28/17 21:28 Insulin Aspart (NovoLOG) BEFORE MEALS AND HS SUBQ 06/27/17 11:30 07/27/17 11:29 06/29/17 12:01 Lamotrigine (LaMICtal) 25 mg DAILY ORAL 06/27/17 09:00 07/27/17 08:59 06/29/17 08:33 Levofloxacin (Levaquin) 750 mg DAILY ORAL 06/29/17 16:00 06/30/17 09:01 Lorazepam (Ativan) 0.5 mg Q6H PRN ORAL For Anxiety 06/27/17 04:15 07/04/17 04:14 Memantine (Namenda) 5 mg BID ORAL 06/27/17 09:00 07/27/17 08:59 06/29/17 08:33 Morphine Sulfate (Morphine Sulfate) 2 mg Q4H PRN IVP PAIN 4-10 06/26/17 17:30 07/03/17 17:29 Olanzapine (ZyPREXA) 5 mg QHS ORAL 06/26/17 21:00 07/26/17 20:59 06/28/17 21:27 Ondansetron HCl (Zofran) 4 mg Q6H PRN IVP Nausea & Vomiting 06/26/17 17:30 07/26/17 17:29 Phenazopyridine HCl (Pyridium) 100 mg DAILYPRN PRN ORAL dysuria 06/26/17 17:30 07/26/17 17:29 Polyethylene Glycol (Miralax) 17 gm DAILYPRN PRN ORAL Constipation 06/26/17 17:30 07/26/17 17:29 Temazepam (Restoril) 15 mg HSPRN PRN ORAL Insomnia 06/26/17 21:00 07/03/17 20:59 BAN PERLA Jun 29, 2017 17:00
[2017-06-29] MEDS ORDERED: NS 500ML ONE (18:15)
[2017-06-29] MEDS ORDERED: Tubing IV Secondary IV ONE (18:15)
--- NOTE | 2017-06-30 10:30 | Progress Note ---
DATE: 06/29/2017 NOTE: POOR AUDIO SUBJECTIVE: This is a 77-year-old male patient with sepsis and dehydration. He has altered mental status, confusion, and has paranoid schizophrenia, . DIAGNOSIS: Paranoid schizophrenia, rule out dementia with psychosis. PLAN: Plan for this patient is to treat him with . Encourage him to interact appropriately with staff. situation. We will try to prevent any further decline in his cognition. Continue to use current medication management. Chart reviewed and discussed with staff. Dakota Monroe M.D. DR: ALEXSANDRA JOB#: [id number] CC:
--- NOTE | 2017-07-02 09:22 | Discharge Summary ---
Discharge Summary Hospital Course Date of Admission Jun 26, 2017 at 09:45 Date of Discharge Jun 29, 2017 at 18:16 Admitting Diagnosis sepsis, dehydration HPI Russell Dallas is a 77 year old male who was admitted on Jun 26, 2017 at 09:45 for Sepsis,Dehydration Hospital Course dc summary #[id number] Discharge Medications Continued Medications: Acetaminophen* (Acetaminophen 325MG Tablet*) 325 Mg Tablet 650 MG ORAL Q4H PRN for Fever/Headache/Mild Pain, TAB Escitalopram Oxalate* (Lexapro*) 10 Mg Tablet 10 MG ORAL DAILY, TAB Insulin Aspart* (Novolog*) 100 Unit/1 Ml Insuln.pen 0 SUBQ BEFORE MEALS AND HS, EA 0 Refills Lamotrigine* (Lamictal*) 25 Mg Tablet 25 MG ORAL DAILY, #30 TAB 0 Refills Levofloxacin* (Levaquin*) 750 Mg Tablet 750 MG ORAL DAILY for 1 Day, TAB Memantine Hcl* (Namenda*) 5 Mg Tablet 5 MG ORAL TWICE A DAY, TAB Olanzapine* (Zyprexa*) 5 Mg Tablet 5 MG ORAL HS, TAB Temazepam* (Restoril*) 15 Mg Capsule 15 MG ORAL BEDTIME PRN for Insomnia, CAP Discharge Condition Upon Discharge: stable Discharge Disposition Patient was discharged to SNF/Subacute Facility(03) Discharge Diagnoses: Discharge Instructions Discharge Instructions Special Instructions I have been assigned to complete a D/C Summary on this account. I was not involved in the patient management Deysi Sahu NP (Vanchtein) Jul 02, 2017 09:22
--- NOTE | 2017-07-03 07:00 | Discharge Summary 2 SIG ---
DATE OF ADMISSION: 06/26/2017 DATE OF DISCHARGE: 06/29/2017 REASON FOR ADMISSION: 77-year-old male with a past medical history significant for COPD, diabetes, schizophrenia, CVA with left spastic hemiparesis, vascular dementia, was sent from the [facility] facility for evaluation due to altered mental status. The patient at the baseline was nonverbal, but was interactive and was able to track with his eyes. The patient was noted by the nursing staff to have decreased responsiveness. Upon evaluation in the emergency department, the patient found to be febrile with a fever -103.1, tachycardiac -114, respiratory rate- 22. No leukocytosis. Urinalysis with 2+ protein, pyuria, but few bacteria. Troponin negative. Pro BNP -502. Albumin -2.5. Lactic acid within normal limits- 1.5. EKG revealed sinus tachycardia with heart rate-108. Chest x-ray revealed left base pneumonia. CT of the head revealed no acute intracranial pathology, but was consistent with old stroke. The patient was admitted with diagnosis of sepsis, pneumonia, acute encephalopathy, diabetes, and COPD. HOSPITAL COURSE: The patient admitted. The patient was started on empiric antibiotics. ID and Pulmonology consults were requested. Supplemental oxygen provided as needed to keep saturation above 92%. Pulmonary toilet provided as needed. Unable to collect sputum culture since cough was dry. Blood culture initially showed Staph Coag-negative. Repeated blood cultures were negative, according to the ID specialist, likely contamination. The patient was on vancomycin and cefepime. After second blood culture return back negative, vancomycin was discontinued. Prior to discharge, antibiotic changed to Levaquin to complete the course of antibiotic at the [facility] facility. DVT prophylaxis provided. Blood sugar was managed with sliding scale of insulin and remained stable. Home medications were resumed. Psychiatrist seen and evaluated the patient and diagnosed him with schizoaffective bipolar type. Psychiatrist optimized psychiatric medication regimen. Wound care nurse followed the patient for present on admission, left ischial tuberosity pressure ulcer stage III, sacral coccyx deep tissue injury present on admission, left dorsal foot scattered deep tissue injury present on admission. Wound care provided as per wound care nurse recommendation, and to be continued at [facility] facility. Acute encephalopathy was likely secondary to underlying infectious process. As the patient's clinically improved, mental status slowly returned to baseline. The patient was stable to discharge back to [facility] facility. FINAL DIAGNOSES: 1. Sepsis. 2. Pneumonia. 3. Acute encephalopathy. 4. 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 5. Vascular dementia. 6. Diabetes mellitus. 7. Chronic obstructive pulmonary disease. 8. Left ischial tuberosity stage III, present on admission. 9. Sacral coccyx deep tissue injury present on admission. 10. Left dorsal foot scattered deep tissue injury present on admission. 11. Schizoaffective, bipolar type. DISCHARGE MEDICATIONS: See medication reconciliation list. DISCHARGE INSTRUCTIONS: The patient was discharged to [facility] facility. FOLLOWUP: Follow up with medical doctor at the facility. German Carlin D.O. I have been assigned to dictate discharge summary on this account and I was not involved in the patient's management. Deysi [facility]Len[facility] Hospital[facility] N[facility] DR: Kan JOB#: [id number] CC: EDU
--- NOTE | 2017-07-11 16:31 | Diagnostic Imaging Report ---
Indications: Dysphagia Technique: Patient ingested multiple substances under the supervision of speech pathology. Video fluoroscopic recording performed. Total fluoroscopy time 300 seconds. Total dose area product 0.52014 mGycm2 Comparison: none Findings: Marked aspiration of thin liquid barium was observed. At least one instance of penetration nectar thick liquid barium was observed. There is also penetration of honey thick liquid barium. Ingestion of barium puree demonstrate early pooling in the vallecula as well as incomplete emptying, no evidence of aspiration or penetration Impression: Aspiration of thin liquid barium, penetration of nectar thick and honey thick liquid barium. Please refer to speech pathology report for more detailed analysis
== END 2017-06-29 18:16 | DRG 871 ==
LOC: EDBD 08:39 → EMR 09:35 → 4E 09:45 → EDBEDREQSVC 15:09 → EDBEDREQ 15:09
DX: A41.9 Sepsis, unspecified organism (principal); E43 Unspecified severe protein-calorie malnutrition; G93.40 Encephalopathy, unspecified; L89.150 Pressure ulcer of sacral region, unstageable; L89.323 Pressure ulcer of left buttock, stage 3; J18.9 Pneumonia, unspecified organism; N39.0 Urinary tract infection, site not specified; I69.354 Hemiplegia and hemiparesis following cerebral infarction affecting left non-dominant side; F01.50 Vascular dementia, unspecified severity, without behavioral disturbance, psychotic disturbance, mood disturbance, and anxiety; J44.9 Chronic obstructive pulmonary disease, unspecified; E11.9 Type 2 diabetes mellitus without complications; E86.0 Dehydration; L89.890 Pressure ulcer of other site, unstageable; F25.0 Schizoaffective disorder, bipolar type
CPT/HCPCS: 36415; 70450; 71045; 74230; 80048; 80053; 80202; 81001; 81003; 82550; 82553; 82962; 83605; 83735; 83880; 84100; 84484; 85007; 85025; 87040; 87081; 87181; 93005; 97803; 99285; J1815

== ENCOUNTER 2020-04-24 19:41 | Inpatient (IN) | payer MEDICARE, OTHER ==
[~2020-04-24] VITALS: Ht 182.9 cm; Wt 67.1 kg
[~2020-04-24 19:41] MED LIST changes: +COLACE100 MG ORAL; +CRANBERRY425 MG PO; +DUONEB 0.5-3(2.53 ML HHN; +LEVAQUIN750 MG ORAL; +NAMENDA5 MG ORAL; +NOVOLOG100 UNIT/3 SUBQ
[2020-04-24] MEDS ORDERED: Cefepime HCl 2 GM in NS 110 ML IV ONE (19:45)
--- NOTE | 2020-04-24 19:55 | NUR ---
ED Nurse Note: brought in by ambulance kathy ra 70 from [facility] c/o respiratory distress. patient arrived via ems with NRM 15L sp9o2 97%. changed into gown; attached to monitor. patient ao2 with confusion. rt at bedside; placed patient on bipap. right heel wound noted; unable to photograph; camera not working; workorder filed. all safety measures met.
[2020-04-24 20:00] VITALS: BP 115/41
--- NOTE | 2020-04-24 20:00 | NUR ---
ED Nurse Note: iv access established. blood urine, covid mrsa vre cre swab collected;s ent down to lab.
--- NOTE | 2020-04-24 20:02 | Emergency Room Report ---
History of Present Illness General Chief Complaint: Dyspnea/Respdistress Present Illness HPI Disclaimer: Please note that this report is being documented using [employer]te[employer] technology. This can lead to erroneous entry secondary to incorrect interpretation by the dictating instrument. [id number] male with a past medical history significant for COPD, diabetes, schizophrenia, CVA with left spastic hemiparesis, vascular dementia, presents from longterm facility due to shortness of breath. Patient was found to be in respiratory distress, hypoxia and EMS was called. On EMS arrival patient's O2 saturation was around 91%. Improved on nonrebreather. Patient reportedly recently admitted to outside facility for "sepsis". Patient unable to provide any history. Allergies: Coded Allergies: No Known Allergies (Unverified , 06/11/17) COVID-19 Screening Contact w/high risk pt: Yes Experienced COVID-19 symptoms?: Yes Patient History Reviewed Nursing Documentation: PMH: Agreed; PSxH: Agreed Nursing Documentation-PMH Hx Cardiac Problems: No Hx COPD: Yes Hx Diabetes: Yes Hx Cancer: No Hx Gastrointestinal Problems: No Hx Cerebrovascular Accident: Yes Hx Dysphasia: Yes Hx Weakness: Yes Review of Systems All Other Systems: negative except mentioned in HPI Physical Exam Vital Signs Date Time Temp Pulse Resp B/P (MAP) Pulse Ox O2 Delivery O2 Flow Rate FiO2 04/24/20 19:44 97.2 97 18 115/41 (65) 97 Non-Rebreather 15.0 Sp02 EP Interpretation: reviewed, normal General Appearance: moderate distress, Chronically Ill Head: normocephalic, atraumatic Eyes: bilateral eye PERRL, bilateral eye EOMI ENT: hearing grossly normal, moist mucus membranes Neck: full range of motion, supple Respiratory: respiratory distress, rhonchi - Noted bilaterally Cardiovascular #1: normal peripheral pulses, regular rate, rhythm, no murmur Gastrointestinal: non tender, soft, non-distended, no guarding Neurologic: alert, other - Left hemiparesis at baseline, responds to commands, localizes to pain Skin: normal color, warm/dry Procedures Critical Care Time Critical Care Time Critical care is managed patient due to presentation with acute respiratory failure requiring my acute intervention and BiPAP. Critical care time is 37 minutes and excludes procedures Medical Decision Making Diagnostic Impression: Primary Impression: Acute respiratory failure Additional Impressions: Dehydration Hypernatremia ER Course MDM: Differential diagnosis included but not limited to pneumonia, sepsis, dehydration, UTI, COVID-19 to name a few Clinical course-patient presented in mild respiratory distress short of breath and hypoxic. Patient started on BiPAP. IV fluids given. Broad-spectrum antibiotics given. Patient's laboratory studies demonstrated evidence of hyponatremia, elevated BUN concerning for dehydration. Patient does not have a G-tube. Patient did seem more comfortable on BiPAP. His lactate was elevated possibly secondary to sepsis or dehydration. His chest x-ray did not show any obvious infiltrate. He did have rhonchorous breath sounds. Possibly mucous plug or early aspiration. She will require admission the hospital for further treatment and observation. Patient admitted to his primary care doctor, Dr. Carlin Labs - Laboratory Tests Test 04/24/20 20:00 04/24/20 22:00 White Blood Count 10.6 K/UL (4.8-10.8) Red Blood Count 3.59 M/UL (4.70-6.10) L Hemoglobin 11.1 G/DL (14.2-18.0) L Hematocrit 35.2 % (42.0-52.0) L Mean Corpuscular Volume 98 FL (80-99) Mean Corpuscular Hemoglobin 30.9 PG (27.0-31.0) Mean Corpuscular Hemoglobin Concent 31.6 G/DL (32.0-36.0) L Red Cell Distribution Width 13.9 % (11.6-14.8) Platelet Count 194 K/UL (150-450) Mean Platelet Volume 6.6 FL (6.5-10.1) Neutrophils (%) (Auto) 62.3 % (45.0-75.0) Lymphocytes (%) (Auto) 23.8 % (20.0-45.0) Monocytes (%) (Auto) 6.6 % (1.0-10.0) Eosinophils (%) (Auto) 6.2 % (0.0-3.0) H Basophils (%) (Auto) 1.1 % (0.0-2.0) Prothrombin Time 11.4 SEC (9.30-11.50) Prothrombin Time INR 1.0 (0.9-1.1) Activated Partial Thromboplast Time 23 SEC (23-33) Sodium Level 159 MMOL/L (136-145) H Potassium Level 3.8 MMOL/L (3.5-5.1) Chloride Level 125 MMOL/L (98-107) H Carbon Dioxide Level 25 MMOL/L (21-32) Anion Gap 9 mmol/L (5-15) Blood Urea Nitrogen 39 mg/dL (7-18) H Creatinine 1.3 MG/DL (0.55-1.30) Estimated Glomerular Filtration Rate 53.4 mL/min (>60) Glucose Level 131 MG/DL (74-106) H Lactic Acid Level 3.10 mmol/L (0.4-2.0) H Pending Calcium Level 7.5 MG/DL (8.5-10.1) L Magnesium Level 2.3 MG/DL (1.8-2.4) Total Bilirubin 0.3 MG/DL (0.2-1.0) Aspartate Amino Transferase (AST) 46 U/L (15-37) H Alanine Aminotransferase (ALT) 26 U/L (12-78) Alkaline Phosphatase 99 U/L (46-116) Total Creatine Kinase 131 U/L (26-308) Creatine Kinase MB 1.0 NG/ML (0.0-3.6) Creatine Kinase MB Relative Index 0.7 Troponin I 0.044 ng/mL (0.000-0.056) Pro-B-Type Natriuretic Peptide 412 pg/mL (0-125) H Total Protein 4.8 G/DL (6.4-8.2) L Albumin 1.5 G/DL (3.4-5.0) L Globulin 3.3 g/dL Albumin/Globulin Ratio 0.5 (1.0-2.7) L Urine Color Pending Urine Appearance Pending Urine pH Pending Urine Specific [place] Pending Urine Protein Pending Urine Glucose (UA) Pending Urine Ketones Pending Urine Blood Pending Urine Nitrite Pending Urine Bilirubin Pending Urine Urobilinogen Pending Urine Leukocyte Esterase Pending Microbiology Date/Time Source Procedure Growth Status 04/24/20 20:00 Nasopharynx SARS-CoV-2 RdRp Gene Assay - Final Complete EKG Diagnostic Results Rate: normal Rhythm: NSR, other - Sinus arrhythmia ST Segments: no acute changes Chest X-Ray Diagnostic Results Chest X-Ray Diagnostic Results : # of Views/Limited/Complete: 1 View Indication: Shortness of Breath Interpretation: no consolidation, no effusion, no pneumothorax Impression: No acute disease Electronically Signed by: Jeremy Carrion MD Last Vital Signs Date Time Temp Pulse Resp B/P (MAP) Pulse Ox O2 Delivery O2 Flow Rate FiO2 04/24/20 19:44 97.2 97 18 115/41 (65) 97 Non-Rebreather 15.0 Status: improved Disposition: ADMITTED INPATIENT Condition: Serious Jeremy Carrion M.D. Apr 24, 2020 20:02
[2020-04-24 21:09] LABS: BASOPHILS % (AUTO) 1.1 % (0.0-2.0); EOSINOPHILS % (AUTO) 6.2 % (0.0-3.0); HEMATOCRIT 35.2 % (42.0-52.0); HEMOGLOBIN 11.1 G/DL (14.2-18.0); LYMPHOCYTES % (AUTO) 23.8 % (20.0-45.0); MEAN CORPUSCULAR VOLUME 98 FL (80-99); MONOCYTES % (AUTO) 6.6 % (1.0-10.0); NEUTROPHILS % (AUTO) 62.3 % (45.0-75.0); PLATELET COUNT 194 K/UL (150-450); RED BLOOD COUNT 3.59 M/UL (4.70-6.10); RED CELL DISTRIBUTION WIDTH 13.9 % (11.6-14.8); WHITE BLOOD COUNT 10.6 K/UL (4.8-10.8)
[2020-04-24 21:19] LABS: CALCIUM 7.5 MG/DL (8.5-10.1); CREATININE 1.3 MG/DL (0.55-1.30); POTASSIUM 3.8 MMOL/L (3.5-5.1)
[2020-04-24 21:32] LABS: ALBUMIN 1.5 G/DL (3.4-5.0); ALBUMIN/GLOBULIN RATIO 0.5 (1.0-2.7); BILIRUBIN,TOTAL 0.3 MG/DL (0.2-1.0)
--- NOTE | 2020-04-24 21:49 | Diagnostic Imaging Report ---
EXAM: XR Chest, 1 View CLINICAL HISTORY: SOB TECHNIQUE: Frontal view of the chest. COMPARISON: No relevant prior studies available. FINDINGS: Lungs: No focal consolidation. Pleural space: Unremarkable. No pneumothorax. Heart: Unremarkable. No cardiomegaly. Mediastinum: Unremarkable. Bones/joints: Moderate/severe right glenohumeral joint osteoarthrosis. Mild osteoarthrosis left glenohumeral joint. IMPRESSION: No acute cardiopulmonary disease.
[2020-04-24] MEDS ORDERED: LISINOPRIL10 MG ORAL (22:11)
[2020-04-24] MEDS ORDERED: NAMENDA5 MG ORAL (22:11)
[2020-04-24] MEDS ORDERED: HYDRALAZINE HCL10 MG ORAL (22:11)
[2020-04-24] MEDS ORDERED: NITRO0.4 SL (22:11)
[2020-04-24] MEDS ORDERED: LAMICTAL25 MG ORAL (22:11)
[2020-04-24] MEDS ORDERED: HUMALOG100 UNIT/3 SUBQ (22:11)
[2020-04-24] MEDS ORDERED: HEPARIN SO5000 UNIT2 SUBQ (22:11)
[2020-04-24 22:28] LABS: APPEARANCE,URINE SLIGHTLY CLOUDY; BILIRUBIN, URINE NEGATIVE (NEGATIVE); GLUCOSE, URINE (UA) NEGATIVE (NEGATIVE); KETONES,URINE NEGATIVE (NEGATIVE); LEUKOCYTE ESTERASE ,URINE 1+ (NEGATIVE); NITRITE,URINE NEGATIVE (NEGATIVE); PH,URINE 5 (4.5-8.0); PROTEIN,URINE 2+ (NEGATIVE); UROBILINOGEN,URINE 4 MG/DL (0.0-1.0)
[2020-04-24 22:30] LABS: COLOR,URINE YELLOW
[2020-04-24 23:00] VITALS: BP 131/30
[2020-04-24 23:30] VITALS: BP 133/65
--- NOTE | 2020-04-24 23:32 | NUR ---
TRANSFER TO FLOOR: Patient transferred to sdu 244-2 as ordered, per breann fabian. Report given to liu singh. patient stable for transport. transferred to unit via gurney with rn and rt. belongings and admission packet sent with patient.
--- NOTE | 2020-04-24 23:45 | NUR ---
NURSE NOTES: Pt received from CRUZ Cruz alert and oriented x2 to name and place with no acute s/s of distress noted. IV site asymptomatic and patent on R fa 18g, saline lock. technical assistant on - Sinus Rhythm (80s) with PACs noted. R forearm skin tear, bilateral heel redness, R lateral ankle unstageable pressure injury, and sacrum partial-thickness pressure injury noted. Purple bruising and discoloration noted on R lower foot, 2nd, 3rd, and 4th toe on the right foot. Elevated for protection, will continue to monitor. Belongings with patient upon admissions.
[2020-04-25] MEDS ORDERED: Nitroglycerin Subl 0.4mg tab SL PRN
[2020-04-25] MEDS ORDERED: Albuterol/Ipratropium 3ml neb HHN PRN
[2020-04-25] MEDS ORDERED: Miralax 17gm pkt ORAL PRN
[2020-04-25] MEDS ORDERED: Promethazine/Codeine 5ml UD ORAL PRN
--- NOTE | 2020-04-25 00:54 | NUR ---
NURSE NOTES: At 0040, Pt noted to be attempting to pull Bipap mask off with Right hand, patient re-directed and re-oriented to situation, place, and time and educated on need for mask for ventilation and improved oxygen exchange. Pt agreed and nodded head but pt continued to reach for and remove Bipap mask after 10 minutes. At 0054, RN communicated to Dr. Downey about patient's behavior. Per Dr. Downey, place pt on soft wrist restraints due to attempting to pull at manager medical device and place order for Ativan 0.5 mg q4h PRN for agitation. Pt placed on soft wrist restraint on right hand for patient safety due to attempting to pull at safety devices. Will continue to monitor patient frequently.
[2020-04-25] MEDS ORDERED: LORazepam Inj 2mg/ml 1ml IV PRN (01:00)
[2020-04-25] MEDS: Vancomycin 1.5 GM in NS 275 ML IVPB SCH (03:01)
[2020-04-25 04:00] VITALS: BP 102/71
[2020-04-25 05:11] LABS: HEMATOCRIT 34.2 % (42.0-52.0); HEMOGLOBIN 10.5 G/DL (14.2-18.0); MEAN CORPUSCULAR VOLUME 100 FL (80-99); PLATELET COUNT 154 K/UL (150-450); RED BLOOD COUNT 3.41 M/UL (4.70-6.10); RED CELL DISTRIBUTION WIDTH 13.6 % (11.6-14.8); WHITE BLOOD COUNT 10.1 K/UL (4.8-10.8)
[2020-04-25] MEDS: NovoLOG Insulin Flexpen SUBQ SCH ×4 (05:14→21:00)
[2020-04-25 05:21] LABS: ALBUMIN 1.4 G/DL (3.4-5.0); ANION GAP 10 mmol/L (5-15); BLOOD UREA NITROGEN 40 mg/dL (7-18); CALCIUM 7.3 MG/DL (8.5-10.1); CARBON DIOXIDE 21 MMOL/L (21-32); CHLORIDE 127 MMOL/L (98-107); CREATININE 1.2 MG/DL (0.55-1.30); PHOSPHORUS 3.8 MG/DL (2.5-4.9); POTASSIUM 3.7 MMOL/L (3.5-5.1); SODIUM 158 MMOL/L (136-145)
--- NOTE | 2020-04-25 07:20 | NUR ---
NURSE HAND-OFF REPORT: Important Events on Shift: WCP taken and uploaded onto EMR, Wound care protocol followed through. Patient tolerated Bipap therapy during the night, saturating at 100%. Patient Status: Stable Diet: NPO pending ST eval Pending Orders: n/a Pending Results/Labs: n/a Pending MD notification: n/a Latest Vital Signs: Temperature 97.7 , Pulse 76 , B/P 102 /71 , Respiratory Rate 25 , O2 SAT 100 , Bi-pap, O2 Flow Rate 15.0 . Vital Sign Comment: WNL EKG Rhythm: Sinus Rhythm Rhythm change?: N MD Notified?: - MD Response: Latest Andersen Fall Score: 60 Fall Risk: High Risk Safety Measures: Call light Within Reach, Bed Alarm Zone 2, Side Rails Side Rails x2, Bed position Low and Locked. Fall Precautions: Yes Yellow Socks Yellow Gown Door Sign Patient Fall Education Report given to Sravani RN and CRUZ Gutierrez.
--- NOTE | 2020-04-25 07:25 | NUR ---
NURSE NOTES: Received report from CRUZ Kitchen. Patient is A/Ox2. Patient has no cardiac or respiratory issues at the moment. Patient is Sinus Rhythm with PAC (HR 76). On BiPap 12/5 100% FiO2. Patient is NPO at the moment waiting for speech evaluation. IV is on right forearm 18 gauge. Patient is on right wrist restraints (cap refill <3secs, able to move). Bed is on lowest position, locked, bed alarm on, and side rails up (x3) and padded for seizure precaution. Call light is within reach. Patient will continue to be monitored.
[2020-04-25 08:00] VITALS: BP 102/51
[2020-04-25] MEDS: Cefepime HCl 1 GM in D5W 55 ML IV SCH ×2 (08:59→21:14)
[2020-04-25] MEDS: Heparin 5000 units/ml inj SUBQ SCH ×2 (09:00→21:14)
[2020-04-25] MEDS: Memantine 10mg tab ORAL SCH ×2 (09:00→17:16)
--- NOTE | 2020-04-25 09:07 | NUR ---
NURSE NOTES: Patient on continuous BIPAP, npo at this time until speech evaluation, Dr. Carlin at the nursing station, made aware. Addendum: 04/25/20 at 0908 by Jaskaran Molina RN unable to give PO MED at this time.
--- NOTE | 2020-04-25 09:30 | NUR ---
NURSE NOTES: Per Dr. Castillo, STAT insertion of cunningham catheter. Order noted, entered, and carried out.
--- NOTE | 2020-04-25 10:30 | History and Physical Report ---
DATE OF ADMISSION: 04/24/2020 TIME SEEN: On 04/25/2020, 8 a.m. CONSULTANTS: Luzmaria Downey MD. CHIEF COMPLAINT: 1. Respiratory failure. 2. Shortness of breath. BRIEF HISTORY: This is a 80-year-old male from [facility] presented with increased shortness of breath for two days, went into respiratory failure, was placed on BiPAP last night and admitted to step-down unit, currently BiPAP in place, sleeping, not talking much. REVIEW OF SYSTEMS: Unavailable. PAST MEDICAL HISTORY: CVA, KORY, depression, malnutrition, anemia, hypertension, diabetes. PAST SURGICAL HISTORY: Unknown. MEDICATIONS: Include cefepime, heparin, olanzapine, memantine, lamotrigine, vancomycin, temazepam, Zofran, nitroglycerin. ALLERGIES: Denies. SOCIAL HISTORY: Unable to obtain secondary to patient's condition. OBJECTIVE: GENERAL: BiPAP in place, sleeping, not talking much. VITAL SIGNS: Temperature 97 degrees, pulse 64, respiratory rate 30, blood pressure 102/51. CARDIOVASCULAR: No murmur. LUNGS: Poor exchange. ABDOMEN: Bowel sounds distant. EXTREMITIES: No cyanosis, clubbing, or edema. NEUROLOGIC: The patient kind of flaccid in bed. LABORATORY AND DIAGNOSTIC DATA: Hemoglobin and hematocrit 10 and 34, otherwise CBC is normal. BMP shows sodium 158 hypernatremia, chloride 127, BUN 40, glucose 141, calcium 7.3, albumin 1.4. INR is 1.0. Urinalysis show 1+ leukocyte esterase. ASSESSMENT: 1. O2 and pulmonary treatment. 2. Antibiotics per Infectious Diseases. 3. Blood pressure and pain control. 4. Dietary followup. 5. Resume home medications. 6. Blood sugar control. 7. Nephrology evaluation, Dr. Catsillo. 8. CBC and BMP in the morning. German Carlin D.O. DR: David JOB#: [id number] CC:
--- NOTE | 2020-04-25 10:32 | Consultation ---
History of Present Illness General Date patient seen: Apr 25, 2020 Time patient seen: 08:00 Chief Complaint: Dyspnea/Respdistress Referring physician: dr Carlin Reason for Consultation: acute resp distress Present Illness HPI 80 years old male, resident of long term facility, with past medical history of COPD, CVA with left spastic hemiparesis, diabetes mellitus, vascular dementia, schizophrenia, presented from the long term facility due to shortness of breath . At the facility patient was found to be in respiratory distress , hypoxia and subsequently paramedics were called. On arrival of validation specialist pulse oximetry was 91%, improved to nonrebreather mask. Patient by himself was unable to provide any history. Upon evaluation saturation was 97% on nonrebreather mask. Laboratory work-up revealed WBC 10.6, hemoglobin 11.1 , hematocrit 25.2, platelet count 184. Sodium 159, chloride 125 . BUN 39, creatinine 1.3. Lactic acid 3.1 Rapid COVID 19 NGT Glucose 131 Troponin 0.044 , proBNP 412. EKG revealed sinus arrhythmia , no acute ischemic changes. Albumin 1.5. Chest x-ray revealed no acute cardiopulmonary pathology. Urinalysis revealed pyuria and few bacteria. In emergency department patient was placed on the BiPAP , received IV fluids, pancultutred, started on empiric antibiotics. Patient subsequently admitted to stepdown unit for further management . Allergies: Coded Allergies: No Known Allergies (Unverified , 06/11/17) Medication History Scheduled Ascorbic Acid* (Vitamin C*), 500 MG ORAL DAILY, (Reported) Aspirin (Aspirin EC), 81 MG ORAL DAILY, (Reported) Benazepril Hcl* (Lotensin*), 20 MG ORAL BID, (Reported) Calcium Carbonate/Vitamin D3 (Calcium 500 + Vit D 200 Tablet), 1 EACH PO BID, (Reported) Docusate Sodium* (Colace*), 100 MG ORAL DAILY, (Reported) Escitalopram Oxalate* (Lexapro*), 10 MG ORAL DAILY, (Reported) Folic Acid* (Folic Acid*), 1 MG ORAL DAILY, (Reported) Folic Acid/Vitamin B Comp W-C (Sarah-Ruben Tablet), 0.8 MG PO DAILY, (Reported) Heparin Sod (Porcine) (Heparin Sodium*), 5,000 UNITS SUBQ DAILY, (Reported) Hydralazine Hcl* (Hydralazine Hcl*), 10 MG ORAL Q4HR, (Reported) Insulin Aspart* (Novolog*), 0 SUBQ BEFORE MEALS AND HS, (Reported) Lamotrigine* (Lamictal*), 25 MG ORAL DAILY, (Reported) Lamotrigine* (Lamictal*), 25 MG ORAL DAILY, (Reported) Levofloxacin* (Levaquin*), 750 MG ORAL DAILY, (Reported) Lisinopril* (Lisinopril*), 20 MG ORAL DAILY, (Reported) Lorazepam* (Ativan*), 0.5 MG ORAL EVERY 6 HOURS, (Reported) Memantine Hcl* (Namenda*), 5 MG ORAL TWICE A DAY, (Reported) Memantine Hcl* (Namenda*), 5 MG ORAL DAILY, (Reported) Multivitamin With Minerals (Multivitamins With Minerals*), 1 TAB ORAL DAILY, (Reported) Olanzapine* (Zyprexa*), 5 MG ORAL DAILY, (Reported) Olanzapine* (Zyprexa*), 5 MG ORAL HS, (Reported) Vitamin B Cmplx/Vit C/Folic AC (Nephro-Ruben Tablet), 1 TAB ORAL DAILY, (Reported) Scheduled PRN Acetaminophen* (Acetaminophen 325MG Tablet*), 650 MG ORAL Q4H PRN for Fever/Headache/Mild Pain, (Reported) Ipratropium/Albuterol Sulfate (DuoNeb 0.5-3(2.5)mg/3ml), 3 ML HHN EVERY 4 HOURS PRN for Shortness of Breath, (Reported) Magnesium Hydroxide* (Milk Of Magnesia*), 30 ML ORAL EVERY 6 HOURS PRN for Constipation, (Reported) Nitroglycerin 0.4MG table* (Nitroglycerin*), 0.4 MG SL .Q5MIN X 3 DOSES PRN for CHEST PAIN, (Reported) Temazepam* (Restoril*), 15 MG ORAL BEDTIME PRN for Insomnia, (Reported) Miscellaneous Medications Cranberry Extract (Cranberry), 425 MG PO, (Reported) Insulin Lispro (Humalog), 0 SUBQ, (Reported) Patient History Healthcare decision maker Resuscitation status full code Advanced Directive on File Past Medical/Surgical History Past Medical/Surgical History: (1) 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 ,L spastic hemiparesis, vascular dementia Review of Systems ROS Narrative unable to provide any history given AMS Physical Exam General Appearance: no apparent distress, other - chronically ill looking bedridden male Lines, tubes and drains: peripheral HEENT: normocephalic, atraumatic, anicteric, other - BiPAP mask on Neck: non-tender, supple Respiratory/Chest: rhonchi - bilaterally - scattered Cardiovascular/Chest: normal rate - SR with PAC Abdomen: normal bowel sounds, non tender, soft Skin Exam: warm/dry Neurologic: abnormal gait - bedridden , other - left hemiparesis , poorly but responds to verbal commands Musculoskeletal: atrophy Last 24 Hour Vital Signs Date Time Temp Pulse Resp B/P (MAP) Pulse Ox O2 Delivery O2 Flow Rate FiO2 04/25/20 09:11 90 30 100 80 04/25/20 08:43 84 04/25/20 08:00 84 04/25/20 08:00 Bi-pap 04/25/20 08:00 97.9 64 30 102/51 (68) 99 04/25/20 07:02 91 30 100 80 04/25/20 04:40 76 25 100 70 04/25/20 04:00 Bi-pap 04/25/20 04:00 97.7 81 21 102/71 (81) 100 04/25/20 03:33 85 04/25/20 03:05 88 26 100 100 04/25/20 01:09 Bi-Pap 04/25/20 00:45 93 29 100 100 04/25/20 00:21 95 04/25/20 00:00 100 04/24/20 23:34 99.8 83 39 131/30 97 Bi-pap 15.0 100 04/24/20 23:30 97.7 82 21 133/65 (87) 97 04/24/20 23:16 111 39 97 100 04/24/20 23:00 99.8 83 32 131/30 96 Bi-pap 15.0 100 04/24/20 20:00 101.5 99 40 115/41 99 Non-Rebreather 15.0 100 04/24/20 20:00 116 40 Non-Rebreather 15.0 100 04/24/20 19:55 116 40 99 100 04/24/20 19:44 101.5 97 18 115/41 (65) 97 Non-Rebreather 15.0 Intake and Output 04/24/20 04/25/20 19:00 07:00 Intake Total 0 ml Balance 0 ml Intake Oral 0 ml Laboratory Tests Test 04/24/20 20:00 04/24/20 22:00 04/25/20 03:00 04/25/20 05:11 White Blood Count 10.6 K/UL (4.8-10.8) 10.1 K/UL (4.8-10.8) Red Blood Count 3.59 M/UL (4.70-6.10) L 3.41 M/UL (4.70-6.10) L Hemoglobin 11.1 G/DL (14.2-18.0) L 10.5 G/DL (14.2-18.0) L Hematocrit 35.2 % (42.0-52.0) L 34.2 % (42.0-52.0) L Mean Corpuscular Volume 98 FL (80-99) 100 FL (80-99) H Mean Corpuscular Hemoglobin 30.9 PG (27.0-31.0) 30.9 PG (27.0-31.0) Mean Corpuscular Hemoglobin Concent 31.6 G/DL (32.0-36.0) L 30.8 G/DL (32.0-36.0) L Red Cell Distribution Width 13.9 % (11.6-14.8) 13.6 % (11.6-14.8) Platelet Count 194 K/UL (150-450) 154 K/UL (150-450) Mean Platelet Volume 6.6 FL (6.5-10.1) 6.6 FL (6.5-10.1) Neutrophils (%) (Auto) 62.3 % (45.0-75.0) % (45.0-75.0) Lymphocytes (%) (Auto) 23.8 % (20.0-45.0) % (20.0-45.0) Monocytes (%) (Auto) 6.6 % (1.0-10.0) % (1.0-10.0) Eosinophils (%) (Auto) 6.2 % (0.0-3.0) H % (0.0-3.0) Basophils (%) (Auto) 1.1 % (0.0-2.0) % (0.0-2.0) Prothrombin Time 11.4 SEC (9.30-11.50) Prothromb Time International Ratio 1.0 (0.9-1.1) Activated Partial Thromboplast Time 23 SEC (23-33) Sodium Level 159 MMOL/L (136-145) H 158 MMOL/L (136-145) H Potassium Level 3.8 MMOL/L (3.5-5.1) 3.7 MMOL/L (3.5-5.1) Chloride Level 125 MMOL/L (98-107) H 127 MMOL/L (98-107) H Carbon Dioxide Level 25 MMOL/L (21-32) 21 MMOL/L (21-32) Anion Gap 9 mmol/L (5-15) 10 mmol/L (5-15) Blood Urea Nitrogen 39 mg/dL (7-18) H 40 mg/dL (7-18) H Creatinine 1.3 MG/DL (0.55-1.30) 1.2 MG/DL (0.55-1.30) Estimat Glomerular Filtration Rate 53.4 mL/min (>60) 58.6 mL/min (>60) Glucose Level 131 MG/DL (74-106) H 141 MG/DL (74-106) H Lactic Acid Level 3.10 mmol/L (0.4-2.0) H 2.80 mmol/L (0.66-2.22) H Calcium Level 7.5 MG/DL (8.5-10.1) L 7.3 MG/DL (8.5-10.1) L Magnesium Level 2.3 MG/DL (1.8-2.4) Total Bilirubin 0.3 MG/DL (0.2-1.0) Aspartate Amino Transf (AST/SGOT) 46 U/L (15-37) H Alanine Aminotransferase (ALT/SGPT) 26 U/L (12-78) Alkaline Phosphatase 99 U/L (46-116) Total Creatine Kinase 131 U/L (26-308) Creatine Kinase MB 1.0 NG/ML (0.0-3.6) Creatine Kinase MB Relative Index 0.7 Troponin I 0.044 ng/mL (0.000-0.056) Pro-B-Type Natriuretic Peptide 412 pg/mL (0-125) H Total Protein 4.8 G/DL (6.4-8.2) L Albumin 1.5 G/DL (3.4-5.0) L 1.4 G/DL (3.4-5.0) L Globulin 3.3 g/dL Albumin/Globulin Ratio 0.5 (1.0-2.7) L Urine Color Yellow Urine Appearance Slightly cloudy Urine pH 5 (4.5-8.0) Urine Specific [place] 1.020 (1.005-1.035) Urine Protein 2+ (NEGATIVE) H Urine Glucose (UA) Negative (NEGATIVE) Urine Ketones Negative (NEGATIVE) Urine Blood 4+ (NEGATIVE) H Urine Nitrite Negative (NEGATIVE) Urine Bilirubin Negative (NEGATIVE) Urine Urobilinogen 4 MG/DL (0.0-1.0) H Urine Leukocyte Esterase 1+ (NEGATIVE) H Urine RBC 40-60 /HPF (0 - 0) H Urine WBC 5-10 /HPF (0 - 0) H Urine Squamous Epithelial Cells Occasional /LPF Urine Bacteria Few /HPF (NONE) Urine Mucus Few /LPF (NONE/OCC) H Differential Total Cells Counted 100 Neutrophils % (Manual) 78 % (45-75) H Lymphocytes % (Manual) 4 % (20-45) L Monocytes % (Manual) 8 % (1-10) Eosinophils % (Manual) 0 % (0-3) Basophils % (Manual) 0 % (0-2) Band Neutrophils 10 % (0-8) H Platelet Estimate Adequate Platelet Morphology Normal Polychromasia 1+ Hypochromasia 1+ Macrocytosis 1+ Phosphorus Level 3.8 MG/DL (2.5-4.9) POC Whole Blood Glucose 141 MG/DL (74-106) H Microbiology Date/Time Source Procedure Growth Status 04/24/20 20:00 Nasopharynx SARS-CoV-2 RdRp Gene Assay - Final Complete Height (Feet): 6 Height (Inches): 0.00 Weight (Pounds): 148 Medications Current Medications Medications (Trade) Dose Ordered Sig/Lopez Route PRN Reason Start Time Stop Time Status Last Admin Dose Admin Acetaminophen (Tylenol) 650 mg Q4H PRN ORAL fever 04/25/20 00:00 05/25/20 00:00 Albuterol/ Ipratropium (Albuterol/ Ipratropium) 3 ml Q4H PRN HHN Shortness of Breath 04/25/20 00:00 04/30/20 00:00 Cefepime HCl 1 gm/ Dextrose 55 ml @ 110 mls/hr EVERY 12 HOURS IV 04/25/20 09:00 05/02/20 08:59 04/25/20 08:59 Dextrose (Dextrose 50%) 25 ml Q30M PRN IV Hypoglycemia 04/25/20 00:00 07/24/20 00:00 Dextrose (Dextrose 50%) 50 ml Q30M PRN IV Hypoglycemia 04/25/20 00:00 07/24/20 00:00 Escitalopram Oxalate (Lexapro) 10 mg DAILY ORAL 04/25/20 09:00 05/25/20 08:59 Heparin Sodium (Porcine) (Heparin 5000 units/ml) 5,000 units EVERY 12 HOURS SUBQ 04/25/20 09:00 06/09/20 08:59 04/25/20 09:00 Insulin Aspart (NovoLOG) BEFORE MEALS AND HS SUBQ 04/25/20 06:30 07/24/20 06:29 Lamotrigine (LaMICtal) 25 mg DAILY ORAL 04/25/20 09:00 05/25/20 08:59 Lorazepam (Ativan 2mg/ml 1ml) 0.5 mg Q4H PRN IV Agitation 04/25/20 01:00 05/02/20 00:59 Memantine (Namenda) 5 mg TWICE A DAY ORAL 04/25/20 09:00 05/25/20 08:59 Nitroglycerin (Ntg) 0.4 mg Q5M PRN SL Prn Chest Pain 04/25/20 00:00 05/25/20 00:00 Olanzapine (ZyPREXA) 5 mg DAILY ORAL 04/25/20 09:00 06/09/20 08:59 Ondansetron HCl (Zofran) 4 mg Q6H PRN IVP Nausea & Vomiting 04/25/20 00:00 05/25/20 00:00 Polyethylene Glycol (Miralax) 17 gm DAILYPRN PRN ORAL Constipation 04/25/20 00:00 05/25/20 00:00 Promethazine HCl/ Codeine (Phenergan with Codeine) 5 ml Q4H PRN ORAL For Cough 04/25/20 00:00 05/25/20 00:00 Temazepam (Restoril) 15 mg HSPRN PRN ORAL Insomnia 04/25/20 00:00 05/02/20 00:00 Vancomycin HCl (Vanco pharmacy to dose) 1 ea DAILY PRN MISC Per rx protocol 04/25/20 00:00 05/25/20 00:00 Vancomycin HCl 1.5 gm/Sodium Chloride 275 ml @ 137.5 mls/ hr Q24H IVPB 04/25/20 02:00 04/30/20 01:59 04/25/20 03:01 Assessment/Plan Assessment/Plan: ASSESSMENT Acute hypoxemic respiratory failure, requiriing NIPPV/BIPAP Lactic acidosis Possible sepsis Dehydration KORY Hyper Na COPD Anemia Protein calorie malnutrition Hx of CVA with left hemiparesis DM PLAN OF CARE PRISCILA BIPAP ABG in am and titrate settings accordingly Pulm toilet CXR in am DVT prophylaxis empiric abx fup with cx Venous Duplex BLE BSSE in am strict aspiration precautions keep NPO for now IVF with dextrose given hyper Na monitor renal paramerts, lytes, correct lytes as needed nephro eval pending monitor HH with goal; to keep Hgb > 7 BS management with SSI cco & president consult supportive care case discussed and evaluated by supervising physician Deysi Sahu ATHLETICS DIRECTOR Apr 25, 2020 10:32
--- NOTE | 2020-04-25 10:38 | Consultation ---
Consult Note Consult Note I am asked to evaluate the patient at the request of Dr. Carlin for fluid and electrolyte management and azotemia Patient seen in room 241 PEG tube. Patient is on BiPAP. Has low urine output. Patient not historian Chief Complaint: Dyspnea/Respdistress [id number] male with a past medical history significant for COPD, diabetes, schizophrenia, CVA with left spastic hemiparesis, vascular dementia, presents from senior living facility due to shortness of breath. Patient was found to be in respiratory distress, hypoxia and EMS was called. On EMS arrival patient's O2 saturation was around 91%. Improved on nonrebreather. Patient reportedly recently admitted to outside facility for "sepsis". Patient unable to provide any history. Allergies: No Known Allergies (Unverified , 06/11/17) COVID-19 Screening Contact w/high risk pt: Yes Experienced COVID-19 symptoms?: Yes Hx COPD: Yes Hx Diabetes: Yes Hx Cerebrovascular Accident: Yes Hx Dysphasia: Yes Hx Weakness: Yes Vital Signs Date Time Temp Pulse Resp B/P (MAP) Pulse Ox O2 Delivery O2 Flow Rate FiO2 04/24/20 19:44 97.2 97 18 115/41 (65) 97 Non-Rebreather 15.0 General Appearance: no apparent distress, other - chronically ill looking bedridden male Lines, tubes and drains: peripheral HEENT: normocephalic, atraumatic, anicteric, other - BiPAP mask on Neck: non-tender, supple Respiratory/Chest: rhonchi - bilaterally - scattered Cardiovascular/Chest: normal rate - SR with PAC Abdomen: normal bowel sounds, non tender, soft Skin Exam: warm/dry Neurologic: abnormal gait - bedridden , other - left hemiparesis , poorly but responds to verbal commands Musculoskeletal: atrophy LABORATORY AND DIAGNOSTIC DATA: Laboratory findings at the time of arrival to the hospital on 04/24/2020, WBC was 10.6, hemoglobin of 11.1, hematocrit of 35.2%, and platelet count is 194. Sodium was 159, potassium 3.8, chloride 125, bicarbonate 25, BUN of 39, creatinine 1.3, glucose is 131, calcium is 7.5, magnesium is 2.3. AST 46, ALT 26. Troponin I 0.044. ProBNP of 412. . Assessment/Plan Patient presents with acute hypoxic respiratory failure requiring BiPAP Sepsis lactic acidosis KORY Dehydration, hypernatremia History of COPD Anemia Low BMI, malnutrition. BMI of 20.1 History of CVA History of diabetes mellitus Contreras catheter IV D5W Monitor electrolytes and renal parameters Antibiotics Avoid nephrotoxic's 2D echocardiogram Per orders Maximino Castillo MD Apr 25, 2020 10:38
[2020-04-25 12:00] VITALS: BP 111/74
--- NOTE | 2020-04-25 14:43 | Cardiology Report ---
APPROVED REPORT EXAM: Two-dimensional and M-mode echocardiogram with Doppler and color Doppler. INDICATION Congestive Heart Failure Other Information Quality : Limited <Conclusion> Technically limited& difficult study due to poor acoustical windows all images obtained from subcostal. Study quality precludes accurate assessment of regional wall motion. Left ventricular ejection fraction estimated to be grossly normal. Calcification of aortic valve with adequate cusp excursion. Mitral annulus and aortic root calcification. Pulmonic valve not well visualized. Trace mitral regurgitation. Trace tricuspid regurgitation.
[2020-04-25 16:00] VITALS: BP 117/52
--- NOTE | 2020-04-25 19:08 | NUR ---
NURSE HAND-OFF REPORT: Important Events on Shift: NA Patient Status: stable Diet: NPO , pending ST eval Pending Orders: na Pending Results/Labs: influenza A,B, Culture urine Pending MD notification:na Latest Vital Signs: Temperature 96.8 , Pulse 81 , B/P 117 /52 , Respiratory Rate 18 , O2 SAT 99 , Bi-pap, O2 Flow Rate 15.0 . Vital Sign Comment: stable EKG Rhythm: Sinus Rhythm Rhythm change?: N MD Notified?: - MD Response: Latest Andersen Fall Score: 50 Fall Risk: High Risk Safety Measures: Call light Within Reach, Bed Alarm Zone 2, Side Rails Side Rails x3, Bed position Low and Locked. Fall Precautions: Yellow Socks Yellow Gown Door Sign Patient Fall Education Report given to Patt Ca RN.
--- NOTE | 2020-04-25 19:09 | NUR ---
NURSE NOTES: received pt from Sravani ARROYO., pt is awake and AO x1 at this time. pt is on BIPAP / Fiow 100%. O2sat is at now 97%. Contreras is draining well with gravity, no active bleeding at this time. skin alteration noted. Right hand 22G IV site intact, clean, and paten.t and D5W @ 75ml/hr running. side rails x3 up and padded as per seizure precaution. ABD soft, non-tender, and intact. call light within reach. will continue to monitor pt with plan of care. bed at the lowest position,alarmed, and locked.
[2020-04-25 20:00] VITALS: BP 114/68
--- NOTE | 2020-04-25 22:00 | NUR ---
NURSE NOTES: pt is sleeping at this time, no SOB noted. call light within reach.
--- NOTE | 2020-04-25 22:45 | Consultation ---
DATE OF CONSULTATION: HISTORY OF PRESENT ILLNESS: This is a 80-year-old male patient, who is seen in ICU step-down for respiratory failure. However, this patient psychiatric consultation because this patient has underlying diagnosis of schizoaffective, bipolar type, rule out depression with psychotic features. That is why, his attending has requested daily psychiatric consultation to help manage his behavior on the unit. This patient continues to have and chronic cognition below his baseline. MEDICAL HISTORY: The patient has a history of sepsis, , pneumonia, , encephalopathy, lethargy, dehydration, hypernatremia, status post stroke, but primarily in the hospital because of respiratory failure. ALLERGIES: He has no known drug allergies. PSYCHOTROPIC MEDICATIONS: On admission, the patient is currently on a psychotropic medication regimen consisting Zyprexa 5 mg q.d., Ativan 0.5 mg every 4 hours p.r.n. anxiety and agitation, Lamictal 25 mg q.d., and Lexapro 10 mg daily. PAIN ASSESSMENT: 0/10 pain. DEVELOPMENTAL PROBLEMS: Denies. FAMILY PSYCHIATRIC HISTORY: Denies. SOCIAL HISTORY: This patient is currently living in [facility], financially supported by [facility] and Medicare. PSYCHIATRIC HISTORY: Multiple psychiatric admissions for diagnosis of paranoid schizophrenia . STRENGTHS: Motivated to get better and has a place to live. WEAKNESSES: Impulsive, minimal support system. MENTAL STATUS EXAMINATION: This is a 80-year-old male. Appearance is disheveled. Attitude, irritable and agitated. Affect, guarded and restricted. Intellect poor because he does not know current events. Does not know last 4 presidents. Mood is depressed and anxious. Motor activity, psychomotor agitation. Attention span is poor because he cannot do serial 7's or spell the world backwards. Orientation x2, oriented to person and place, not time and situation. Speech is nonsensical. Thought process, disorganized and illogical. Thought content, he has got paranoid delusions. Perception is poor due to disorganized thought process and paranoid delusions. Abstract reasoning is poor because he does not understand proverbs and only has concrete thinking. Insight is poor because he does not recognize having a psych disorder. Judgment is poor because he cannot make medical decisions for himself. Short-term memory, 0/3 after 3-word recall, so poor short-term memory. Long-term memory is intact based on his knowledge of long-term events of his life such as high school that he went to. DIAGNOSES: 1. Major depressive disorder, severe, recurrent, with psychotic features, rule out dementia with psychosis. 2. There is no secondary. 3. Medical include respiratory failure, shortness of breath. 4. Psychosocial stressors. 5. Financial function impairment is severe. PLAN: My plan is to treat this patient with a psychotropic medication regimen of Namenda 5 mg twice a day for any further decline in cognition, Zyprexa 5 mg a daily, Lamictal 25 mg daily, Ativan 0.5 mg every 4 hours p.r.n. anxiety and agitation. Twenty minutes of insight-oriented psychotherapy to help this patient understand his physical and psychiatric condition so that he has less better impulse control, less anxiety and depression. Chart reviewed. Discussed with staff. Patient is seen and assessed at bedside. Dakota Monroe M.D. DR: AISHA JOB#: [id number] CC:
[2020-04-26] VITALS: BP 133/70
[2020-04-26] MEDS: Vancomycin 1.5 GM in NS 275 ML IVPB SCH (01:52)
--- NOTE | 2020-04-26 02:00 | NUR ---
NURSE NOTES: cleaned pt, oral care given. provided new gown and new blanket. large brown BM noted, without active bleeding. pt tolerated well without difficulties. repositioned pt Q 2hrs. no SOB noted at this time. call light within reach. will continue to monitor pt closely.
[2020-04-26 04:00] VITALS: BP 140/56
[2020-04-26] MEDS: NovoLOG Insulin Flexpen SUBQ SCH ×4 (05:31→20:48)
--- NOTE | 2020-04-26 07:07 | NUR ---
NURSE HAND-OFF REPORT: Important Events on Shift:[follow up sputum , influenza , urine, ] Patient Status: [stable] Diet: [NPO] Pending Orders: [n/a] Pending Results/Labs:[sputum, influenza, urine, all the AM labs] Pending MD notification:[] Latest Vital Signs: Temperature 97.1 , Pulse 66 , B/P 140 /56 , Respiratory Rate 22 , O2 SAT 100 , Bi-pap, O2 Flow Rate 15.0 . Vital Sign Comment: [stable] EKG Rhythm: Sinus Bradycardia Rhythm change?: N MD Notified?: - MD Response: Latest Andersen Fall Score: 50 Fall Risk: High Risk Safety Measures: Call light Within Reach, Bed Alarm Zone 2, Side Rails Side Rails x3, Bed position Low and Locked. Fall Precautions: Yellow Socks Yellow Gown Door Sign Patient Fall Education Report given to [Sravani ARROYO].
[2020-04-26 07:09] LABS: BASOPHILS % (AUTO) 0.6 % (0.0-2.0); HEMOGLOBIN 10.2 G/DL (14.2-18.0); LYMPHOCYTES % (AUTO) 9.7 % (20.0-45.0); MEAN CORPUSCULAR VOLUME 100 FL (80-99); MONOCYTES % (AUTO) 4.2 % (1.0-10.0); NEUTROPHILS % (AUTO) 81.5 % (45.0-75.0); PLATELET COUNT 137 K/UL (150-450); RED BLOOD COUNT 3.19 M/UL (4.70-6.10); WHITE BLOOD COUNT 7.2 K/UL (4.8-10.8)
--- NOTE | 2020-04-26 07:10 | NUR ---
NURSE NOTES: Received report from Patt Ca RN. Patient in bed resting, no active s/s cardiac, respiratory distress noticed at this time. Patient AOx1-2, open eyes spontaneously. Tried off wrist restraints, tried to pull out BIPAP, on right wrist restraint. Cap refill <3 sec, able to move. Contreras Catheter draining well to gravity at this time. IV on right finder 22G, asymptomatic, patent, intact. IVF D5W running @ 75ml/h. Patient on BIPAP 12/, Fio2 70%, O2 sat 100%. NPO at this time, Bed in lowest position, side rails upx3, call light within reach, bed alarm on, Will continue to monitor.
[2020-04-26 07:38] LABS: ALANINE AMINOTRANSFERASE 23 U/L (12-78); ALBUMIN 1.8 G/DL (3.4-5.0); ALBUMIN/GLOBULIN RATIO 0.6 (1.0-2.7); ALKALINE PHOSPHATASE 94 U/L (46-116); ANION GAP 8 mmol/L (5-15); ASPARTATE AMINO TRANSFERASE 34 U/L (15-37); BILIRUBIN,TOTAL 0.5 MG/DL (0.2-1.0); BLOOD UREA NITROGEN 41 mg/dL (7-18); CALCIUM 7.8 MG/DL (8.5-10.1); CARBON DIOXIDE 23 MMOL/L (21-32); CHLORIDE 126 MMOL/L (98-107); CHOLESTEROL 88 MG/DL (< 200); CREATINE KINASE 293 U/L (26-308); CREATININE 1.2 MG/DL (0.55-1.30); FERRITIN 1602 NG/ML (8-388); GAMMA GLUTAMYL TRANSPEPTIDASE 9 U/L (5-85); HDL CHOLESTEROL 16 MG/DL (40-60); POTASSIUM 3.4 MMOL/L (3.5-5.1); SODIUM 157 MMOL/L (136-145); TRIGLYCERIDES 99 MG/DL (30-150)
[2020-04-26 07:40] LABS: AMMONIA 17 umol/L (11-32)
[2020-04-26 07:47] LABS: % IRON SATURATION 15 % (15-50); IRON 15 ug/dL (50-175); TOTAL IRON BINDING CAPACITY 98 ug/dL (250-450)
[2020-04-26 08:00] VITALS: BP 136/55
[2020-04-26] MEDS: Cefepime HCl 1 GM in D5W 55 ML IV SCH ×2 (08:38→20:46)
[2020-04-26] MEDS: Heparin 5000 units/ml inj SUBQ SCH ×2 (08:41→20:48)
[2020-04-26] MEDS: Memantine 10mg tab ORAL SCH ×2 (08:42→17:32)
--- NOTE | 2020-04-26 08:42 | NUR ---
NURSE NOTES: Patient on continuous BIPAP, pending swallow eval, NPO at this time, unable to administer PO meds.
--- NOTE | 2020-04-26 09:31 | NUR ---
RD ASSESSMENT & RECOMMENDATIONS SEE CARE ACTIVITY FOR COMPLETE ASSESSMENT DAILY ESTIMATED NEEDS: Needs based on DM, Cardiac, Wounds (67.3kg) 25-35 kcals/kg 7595-1801 total kcals 1.25-1.5 g protein/kg 84-101 g total protein 25-30 mL/kg 9130-7945 total fluid mLs NUTRITION DIAGNOSIS: Difficulty chewing/swallowing r/t dysphagia s/p CVA as evidenced by pt NPO w/ pending CANE PILER eval. CURRENT DIET: NPO PO DIET RECOMMENDATIONS: REGULAR /Texture per CANE PILER w/ GLUCERNA 1 CAN TID ENTERAL NUTRITION RECOMMENDATIONS: * Consult RD if non oral feeds are part of POC * ADDITIONAL RECOMMENDATIONS: 1) Maintain calibrated bed scale wts 2) Skin integrity: F/up w/ WC Eval 3) Replete lytes as needed (Low K) 4) F/up w/ parking lot supervisor eval 5) Monitor BG and PO intake, need for carb control diet
--- NOTE | 2020-04-26 09:55 | General Progress Note ---
Subjective Constitutional: Reports: weakness Allergies: Coded Allergies: No Known Allergies (Unverified , 06/11/17) All Systems: reviewed and negative except above Subjective bipap asleep Objective Last 24 Hour Vital Signs Date Time Temp Pulse Resp B/P (MAP) Pulse Ox O2 Delivery O2 Flow Rate FiO2 04/26/20 08:50 69 20 100 70 04/26/20 08:00 97.5 74 18 136/55 (82) 100 04/26/20 08:00 Bi-pap 04/26/20 08:00 100 04/26/20 06:39 66 22 100 70 04/26/20 05:30 62 20 100 70 04/26/20 04:00 Bi-pap 04/26/20 04:00 97.1 59 18 140/56 (84) 100 04/26/20 04:00 100 04/26/20 03:33 70 04/26/20 03:12 61 19 100 70 04/26/20 01:13 60 20 100 70 04/26/20 00:00 96.8 68 18 133/70 (91) 100 04/26/20 00:00 Bi-pap 04/26/20 00:00 100 04/25/20 23:29 65 20 100 70 04/25/20 23:29 69 04/25/20 21:10 66 18 100 70 04/25/20 20:00 Bi-pap 04/25/20 20:00 96.6 66 19 114/68 (83) 100 04/25/20 20:00 100 04/25/20 20:00 72 04/25/20 19:30 64 18 100 70 04/25/20 16:36 81 18 99 80 04/25/20 16:00 96.8 67 19 117/52 (73) 100 04/25/20 16:00 74 04/25/20 16:00 Bi-pap 04/25/20 16:00 100 04/25/20 15:14 82 21 98 80 04/25/20 13:04 74 22 98 80 04/25/20 12:00 98.4 71 21 111/74 (86) 99 04/25/20 12:00 76 04/25/20 12:00 Bi-pap 04/25/20 12:00 100 04/25/20 11:02 71 23 100 80 Intake and Output 04/25/20 04/26/20 19:00 07:00 Intake Total 730 ml 1136.25 ml Output Total 400 ml 300 ml Balance 330 ml 836.25 ml IV Total 730 ml 1136.25 ml Output Urine Total 400 ml 300 ml # Bowel Movements 2 2 Laboratory Tests 04/25/20 11:15: POC Whole Blood Glucose 128H 04/25/20 11:30: Urine Random Sodium 31 04/25/20 16:51: POC Whole Blood Glucose [Pending] 04/25/20 21:11: POC Whole Blood Glucose 110H 04/26/20 04:22: White Blood Count 7.2, Red Blood Count 3.19L, Hemoglobin 10.2L, Hematocrit 32.0L , Mean Corpuscular Volume 100H, Mean Corpuscular Hemoglobin 32.0H, Mean Corpuscular Hemoglobin Concent 31.9L, Red Cell Distribution Width 14.0, Platelet Count 137L, Mean Platelet Volume 7.2, Neutrophils (%) (Auto) 81.5H, Lymphocytes (%) (Auto) 9.7L, Monocytes (%) (Auto) 4.2, Eosinophils (%) (Auto) 4.0H, Basophils (%) (Auto) 0.6, Sodium Level 157H, Potassium Level 3.4L, Chloride Level 126H, Carbon Dioxide Level 23, Anion Gap 8, Blood Urea Nitrogen 41H, Creatinine 1.2, Estimat Glomerular Filtration Rate 58.6, Glucose Level 107H, Hemoglobin A1c 5.6, Uric Acid 4.4, Calcium Level 7.8L, Phosphorus Level 3.0, Magnesium Level 2.2, Iron Level 15L, Total Iron Binding Capacity 98L, Percent Iron Saturation 15, Unsaturated Iron Binding 83L, Ferritin 1602H, Total Bilirubin 0.5, Gamma Glutamyl Transpeptidase 9, Aspartate Amino Transf (AST/SGOT) 34, Alanine Aminotransferase (ALT/SGPT) 23, Alkaline Phosphatase 94, Ammonia 17, Total Creatine Kinase 293, C-Reactive Protein, Quantitative 23.9H, Pro-B-Type Natriuretic Peptide 805H, Total Protein 4.9L, Albumin 1.8L, Globulin 3.1, Albumin/Globulin Ratio 0.6L, Triglycerides Level 99, Cholesterol Level 88, LDL Cholesterol 43, HDL Cholesterol 16L, Cholesterol/HDL Ratio 5.5H, Vitamin B12 Level 331, Folate 4.3L, Thyroid Stimulating Hormone (TSH) 2.840 04/26/20 05:13: POC Whole Blood Glucose 111H 04/26/20 07:25: Arterial Blood pH 7.478H, Arterial Blood Partial Pressure CO2 24.9*L, Arterial Blood Partial Pressure O2 192.5H, Arterial Blood HCO3 18.0L, Arterial Blood Oxygen Saturation 99.2, Arterial Blood Base Excess -4.5L, Pepe Test Positive Height (Feet): 6 Height (Inches): 0.00 Weight (Pounds): 148 General Appearance: lethargic EENT: normal ENT inspection Neck: normal alignment Cardiovascular: normal peripheral pulses, normal rate, regular rhythm Respiratory/Chest: chest wall non-tender, lungs clear, normal breath sounds Abdomen: normal bowel sounds, non tender, soft Extremities: normal inspection Edema: no edema noted Arm (L), no edema noted Arm (R), no edema noted Leg (L), no edema noted Leg (R), no edema noted Pedal (L), no edema noted Pedal (R), no edema noted Generalized Neurologic: motor weakness Skin: normal pigmentation, warm/dry Assessment/Plan Problem List: (1) UTI (urinary tract infection) ICD Codes: N39.0 - Urinary tract infection, site not specified SNOMED: 39336943 (2) CVA (cerebral vascular accident) ICD Codes: I63.9 - Cerebral infarction, unspecified SNOMED: 324671589 (3) KORY (acute kidney injury) ICD Codes: N17.9 - Acute kidney failure, unspecified SNOMED: 7553917, 62500854 (4) Depressed ICD Codes: F32.9 - Major depressive disorder, single episode, unspecified SNOMED: 89023001 (5) Malnutrition ICD Codes: E46 - Unspecified protein-calorie malnutrition SNOMED: 96059629 (6) HTN (hypertension) ICD Codes: I10 - Essential (primary) hypertension SNOMED: 33631531 (7) Diabetes ICD Codes: E11.9 - Type 2 diabetes mellitus without complications SNOMED: 67591126 (8) Dehydration ICD Codes: E86.0 - Dehydration SNOMED: 41480213 (9) Hypernatremia ICD Codes: E87.0 - Hyperosmolality and hypernatremia SNOMED: 48971881 (10) Acute respiratory failure ICD Codes: J96.00 - Acute respiratory failure, unspecified whether with hypoxia or hypercapnia SNOMED: 72293074 Status: unchanged Assessment/Plan: o2 pulm tx abx pt diet cbc bmp am aru German Villanueva DO Apr 26, 2020 09:55
--- NOTE | 2020-04-26 10:08 | NUR ---
NURSE NOTES: Per Dr. Carlin, Dr. Downey on the case, Order noted, entered, carried out. Dr. Downey made aware.
--- NOTE | 2020-04-26 10:27 | Pulmonolgy Critical Care Note ---
Critical Care - Asmt/Plan Problems: (1) Acute respiratory failure (2) ATN (acute tubular necrosis) (3) Acute encephalopathy (4) UTI (urinary tract infection) (5) Protein-calorie malnutrition, severe (6) Diabetes (7) HTN (hypertension) (8) CVA (cerebral vascular accident) Respiratory: monitor respiratory rate, adjust FIO2, CXR Cardiac: continue to monitor HR/BP Renal: F/U I&O, keep IV fluid, check electrolytes Gastrointestinal: continue feedings/current rate Endocrine: monitor blood sugar Hematologic: monitor H/H, transfuse if hgb<8.5 Neurologic: PRN Ativan, keep patient comfortable Affect: PRN ativan Prophylaxis: Protonix Time Spent (Minutes): 40 Notes Reviewed: cardio, 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 with: 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, 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, 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 - Objective Last 24 Hour Vital Signs Date Time Temp Pulse Resp B/P (MAP) Pulse Ox O2 Delivery O2 Flow Rate FiO2 04/26/20 08:50 69 20 100 70 04/26/20 08:00 97.5 74 18 136/55 (82) 100 04/26/20 08:00 Bi-pap 04/26/20 08:00 100 04/26/20 06:39 66 22 100 70 04/26/20 05:30 62 20 100 70 04/26/20 04:00 Bi-pap 04/26/20 04:00 97.1 59 18 140/56 (84) 100 04/26/20 04:00 100 04/26/20 03:33 70 04/26/20 03:12 61 19 100 70 04/26/20 01:13 60 20 100 70 04/26/20 00:00 96.8 68 18 133/70 (91) 100 04/26/20 00:00 Bi-pap 04/26/20 00:00 100 04/25/20 23:29 65 20 100 70 04/25/20 23:29 69 04/25/20 21:10 66 18 100 70 04/25/20 20:00 Bi-pap 04/25/20 20:00 96.6 66 19 114/68 (83) 100 04/25/20 20:00 100 04/25/20 20:00 72 04/25/20 19:30 64 18 100 70 04/25/20 16:36 81 18 99 80 04/25/20 16:00 96.8 67 19 117/52 (73) 100 04/25/20 16:00 74 04/25/20 16:00 Bi-pap 04/25/20 16:00 100 04/25/20 15:14 82 21 98 80 04/25/20 13:04 74 22 98 80 04/25/20 12:00 98.4 71 21 111/74 (86) 99 04/25/20 12:00 76 04/25/20 12:00 Bi-pap 04/25/20 12:00 100 04/25/20 11:02 71 23 100 80 Status: somnolent Condition: critical Neck: full ROM, trach Lungs: clear Heart: HR/BP stable Abdomen: soft Extremities: no C/C/E Decubiti: location Micro: Microbiology Date/Time Source Procedure Growth Status 04/26/20 06:00 Nasopharynx - Final Complete 04/26/20 06:00 Nasopharynx - Final Complete 04/24/20 20:00 Nasopharynx SARS-CoV-2 RdRp Gene Assay - Final Complete Accucheck: 111 Critical Care - Subjective ROS Limited/Unobtainable: Yes Interval Events: still on BIPAP Condition: critical EKG Rhythm: Sinus Rhythm FI02: 70 Vent Support Breath Rate: 18 Vent Support Mode: BiLevel Sputum Amount: None I&O: Intake and Output0 04/25/20 04/26/20 19:00 07:00 Intake Total 730 ml 1136.25 ml Output Total 400 ml 300 ml Balance 330 ml 836.25 ml IV Total 730 ml 1136.25 ml Output Urine Total 400 ml 300 ml # Bowel Movements 2 2 CXR: LYLE Labs: Laboratory Tests Test 04/25/20 11:15 04/25/20 11:30 04/25/20 16:51 04/25/20 21:11 POC Whole Blood Glucose 128 MG/DL (74-106) H Pending 110 MG/DL (74-106) H Urine Random Sodium 31 mmol/L (20-110) Test 04/26/20 04:22 04/26/20 05:13 04/26/20 07:25 White Blood Count 7.2 K/UL (4.8-10.8) Red Blood Count 3.19 M/UL (4.70-6.10) L Hemoglobin 10.2 G/DL (14.2-18.0) L Hematocrit 32.0 % (42.0-52.0) L Mean Corpuscular Volume 100 FL (80-99) H Mean Corpuscular Hemoglobin 32.0 PG (27.0-31.0) H Mean Corpuscular Hemoglobin Concent 31.9 G/DL (32.0-36.0) L Red Cell Distribution Width 14.0 % (11.6-14.8) Platelet Count 137 K/UL (150-450) L Mean Platelet Volume 7.2 FL (6.5-10.1) Neutrophils (%) (Auto) 81.5 % (45.0-75.0) H Lymphocytes (%) (Auto) 9.7 % (20.0-45.0) L Monocytes (%) (Auto) 4.2 % (1.0-10.0) Eosinophils (%) (Auto) 4.0 % (0.0-3.0) H Basophils (%) (Auto) 0.6 % (0.0-2.0) Sodium Level 157 MMOL/L (136-145) H Potassium Level 3.4 MMOL/L (3.5-5.1) L Chloride Level 126 MMOL/L (98-107) H Carbon Dioxide Level 23 MMOL/L (21-32) Anion Gap 8 mmol/L (5-15) Blood Urea Nitrogen 41 mg/dL (7-18) H Creatinine 1.2 MG/DL (0.55-1.30) Estimat Glomerular Filtration Rate 58.6 mL/min (>60) Glucose Level 107 MG/DL (74-106) H Hemoglobin A1c 5.6 % (4.3-6.0) Uric Acid 4.4 MG/DL (2.6-7.2) Calcium Level 7.8 MG/DL (8.5-10.1) L Phosphorus Level 3.0 MG/DL (2.5-4.9) Magnesium Level 2.2 MG/DL (1.8-2.4) Iron Level 15 ug/dL (50-175) L Total Iron Binding Capacity 98 ug/dL (250-450) L Percent Iron Saturation 15 % (15-50) Unsaturated Iron Binding 83 ug/dL (112-346) L Ferritin 1602 NG/ML (8-388) H Total Bilirubin 0.5 MG/DL (0.2-1.0) Gamma Glutamyl Transpeptidase 9 U/L (5-85) Aspartate Amino Transf (AST/SGOT) 34 U/L (15-37) Alanine Aminotransferase (ALT/SGPT) 23 U/L (12-78) Alkaline Phosphatase 94 U/L (46-116) Ammonia 17 umol/L (11-32) Total Creatine Kinase 293 U/L (26-308) C-Reactive Protein, Quantitative 23.9 mg/dL (0.00-0.90) H Pro-B-Type Natriuretic Peptide 805 pg/mL (0-125) H Total Protein 4.9 G/DL (6.4-8.2) L Albumin 1.8 G/DL (3.4-5.0) L Globulin 3.1 g/dL Albumin/Globulin Ratio 0.6 (1.0-2.7) L Triglycerides Level 99 MG/DL (30-150) Cholesterol Level 88 MG/DL (< 200) LDL Cholesterol 43 mg/dL (<100) HDL Cholesterol 16 MG/DL (40-60) L Cholesterol/HDL Ratio 5.5 (3.3-4.4) H Vitamin B12 Level 331 PG/ML (193-986) Folate 4.3 NG/ML (8.6-58.9) L Thyroid Stimulating Hormone (TSH) 2.840 uiU/mL (0.358-3.740) POC Whole Blood Glucose 111 MG/DL (74-106) H Arterial Blood pH 7.478 (7.350-7.450) Arterial Blood Partial Pressure CO2 24.9 mmHg (35.0-45.0) *L Arterial Blood Partial Pressure O2 192.5 mmHg (75.0-100.0) H Arterial Blood HCO3 18.0 mmol/L (22.0-26.0) L Arterial Blood Oxygen Saturation 99.2 % (95-100) Arterial Blood Base Excess -4.5 (-2-2) L Pepe Test Positive Luzmaria Downey MD Apr 26, 2020 10:26
--- NOTE | 2020-04-26 10:29 | NUR ---
NURSE NOTES: Per Dr. Downey, titrate/ wean from BIPAP, ABG one hour after. Order noted, entered, carried out. RT made aware.
--- NOTE | 2020-04-26 10:52 | Psychiatry Consultation ---
Psychiatry Consultation Psychiatry Consultation Chief Complaint: Dyspnea/Respdistress History of Present Illness: 80yo male patient who is confused and disorganized and has a decline in cogn ition below baseline thus his attending has requested daily psychiatric consultation. He does has significant confusion due to the progression of his medical illness. Allergies: Coded Allergies: No Known Allergies (Unverified , 06/11/17) Medication History Scheduled Ascorbic Acid* (Vitamin C*), 500 MG ORAL DAILY, (Reported) Aspirin (Aspirin EC), 81 MG ORAL DAILY, (Reported) Benazepril Hcl* (Lotensin*), 20 MG ORAL BID, (Reported) Calcium Carbonate/Vitamin D3 (Calcium 500 + Vit D 200 Tablet), 1 EACH PO BID, (Reported) Docusate Sodium* (Colace*), 100 MG ORAL DAILY, (Reported) Escitalopram Oxalate* (Lexapro*), 10 MG ORAL DAILY, (Reported) Folic Acid* (Folic Acid*), 1 MG ORAL DAILY, (Reported) Folic Acid/Vitamin B Comp W-C (Sarah-Ruben Tablet), 0.8 MG PO DAILY, (Reported) Heparin Sod (Porcine) (Heparin Sodium*), 5,000 UNITS SUBQ DAILY, (Reported) Hydralazine Hcl* (Hydralazine Hcl*), 10 MG ORAL Q4HR, (Reported) Insulin Aspart* (Novolog*), 0 SUBQ BEFORE MEALS AND HS, (Reported) Lamotrigine* (Lamictal*), 25 MG ORAL DAILY, (Reported) Lamotrigine* (Lamictal*), 25 MG ORAL DAILY, (Reported) Levofloxacin* (Levaquin*), 750 MG ORAL DAILY, (Reported) Lisinopril* (Lisinopril*), 20 MG ORAL DAILY, (Reported) Lorazepam* (Ativan*), 0.5 MG ORAL EVERY 6 HOURS, (Reported) Memantine Hcl* (Namenda*), 5 MG ORAL TWICE A DAY, (Reported) Memantine Hcl* (Namenda*), 5 MG ORAL DAILY, (Reported) Multivitamin With Minerals (Multivitamins With Minerals*), 1 TAB ORAL DAILY, (Reported) Olanzapine* (Zyprexa*), 5 MG ORAL DAILY, (Reported) Olanzapine* (Zyprexa*), 5 MG ORAL HS, (Reported) Vitamin B Cmplx/Vit C/Folic AC (Nephro-Ruben Tablet), 1 TAB ORAL DAILY, (Reported) Scheduled PRN Acetaminophen* (Acetaminophen 325MG Tablet*), 650 MG ORAL Q4H PRN for Fever/Headache/Mild Pain, (Reported) Ipratropium/Albuterol Sulfate (DuoNeb 0.5-3(2.5)mg/3ml), 3 ML HHN EVERY 4 HOURS PRN for Shortness of Breath, (Reported) Magnesium Hydroxide* (Milk Of Magnesia*), 30 ML ORAL EVERY 6 HOURS PRN for Constipation, (Reported) Nitroglycerin 0.4MG table* (Nitroglycerin*), 0.4 MG SL .Q5MIN X 3 DOSES PRN for CHEST PAIN, (Reported) Temazepam* (Restoril*), 15 MG ORAL BEDTIME PRN for Insomnia, (Reported) Miscellaneous Medications Cranberry Extract (Cranberry), 425 MG PO, (Reported) Insulin Lispro (Humalog), 0 SUBQ, (Reported) Objective Data Height (Feet): 6 Height (Inches): 0.00 Weight (Pounds): 148 Assessment/Plan Assessment/Plan: Continue the patient on Lamictal, Zyprexa, Ativan and Namenda. 20min of insight oriented psychotherapy to help him recognize his psychical and cogintive deficits so that he has less depression and better impulse control. 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
[2020-04-26 12:00] VITALS: BP 149/92
--- NOTE | 2020-04-26 12:01 | Consultation ---
History of Present Illness General Date patient seen: Apr 26, 2020 Chief Complaint: Dyspnea/Respdistress Referring physician: dr Carlin Reason for Consultation: acute resp distress Present Illness HPI 80 y/o M with hx of COPD, DM2, HTN, schizophrenia, malnutrition, CVA w/ left spastic hemiparesis, vascular dementia, schizoaffective-bipolar type, SNF resident ([facility]) presented to ED on 04/24 with SOB. Upon arrival EMS, saturating 91% and improved with NRB. Allergies: Coded Allergies: No Known Allergies (Unverified , 06/11/17) Medication History Scheduled Ascorbic Acid* (Vitamin C*), 500 MG ORAL DAILY, (Reported) Aspirin (Aspirin EC), 81 MG ORAL DAILY, (Reported) Benazepril Hcl* (Lotensin*), 20 MG ORAL BID, (Reported) Calcium Carbonate/Vitamin D3 (Calcium 500 + Vit D 200 Tablet), 1 EACH PO BID, (Reported) Docusate Sodium* (Colace*), 100 MG ORAL DAILY, (Reported) Escitalopram Oxalate* (Lexapro*), 10 MG ORAL DAILY, (Reported) Folic Acid* (Folic Acid*), 1 MG ORAL DAILY, (Reported) Folic Acid/Vitamin B Comp W-C (Sarah-Ruben Tablet), 0.8 MG PO DAILY, (Reported) Heparin Sod (Porcine) (Heparin Sodium*), 5,000 UNITS SUBQ DAILY, (Reported) Hydralazine Hcl* (Hydralazine Hcl*), 10 MG ORAL Q4HR, (Reported) Insulin Aspart* (Novolog*), 0 SUBQ BEFORE MEALS AND HS, (Reported) Lamotrigine* (Lamictal*), 25 MG ORAL DAILY, (Reported) Lamotrigine* (Lamictal*), 25 MG ORAL DAILY, (Reported) Levofloxacin* (Levaquin*), 750 MG ORAL DAILY, (Reported) Lisinopril* (Lisinopril*), 20 MG ORAL DAILY, (Reported) Lorazepam* (Ativan*), 0.5 MG ORAL EVERY 6 HOURS, (Reported) Memantine Hcl* (Namenda*), 5 MG ORAL TWICE A DAY, (Reported) Memantine Hcl* (Namenda*), 5 MG ORAL DAILY, (Reported) Multivitamin With Minerals (Multivitamins With Minerals*), 1 TAB ORAL DAILY, (Reported) Olanzapine* (Zyprexa*), 5 MG ORAL DAILY, (Reported) Olanzapine* (Zyprexa*), 5 MG ORAL HS, (Reported) Vitamin B Cmplx/Vit C/Folic AC (Nephro-Ruben Tablet), 1 TAB ORAL DAILY, (Reported) Scheduled PRN Acetaminophen* (Acetaminophen 325MG Tablet*), 650 MG ORAL Q4H PRN for Fever/Headache/Mild Pain, (Reported) Ipratropium/Albuterol Sulfate (DuoNeb 0.5-3(2.5)mg/3ml), 3 ML HHN EVERY 4 HOURS PRN for Shortness of Breath, (Reported) Magnesium Hydroxide* (Milk Of Magnesia*), 30 ML ORAL EVERY 6 HOURS PRN for Constipation, (Reported) Nitroglycerin 0.4MG table* (Nitroglycerin*), 0.4 MG SL .Q5MIN X 3 DOSES PRN for CHEST PAIN, (Reported) Temazepam* (Restoril*), 15 MG ORAL BEDTIME PRN for Insomnia, (Reported) Miscellaneous Medications Cranberry Extract (Cranberry), 425 MG PO, (Reported) Insulin Lispro (Humalog), 0 SUBQ, (Reported) Patient History Healthcare decision maker Resuscitation status Advanced Directive on File Patient History Narrative Pmhx: as above Shx: reviewed Fhx: non contributory Review of Systems All Other Systems: negative except mentioned in HPI Physical Exam Physical Exam Narrative GENERAL: BiPAP in place, sleeping, not talking much. CARDIOVASCULAR: No murmur. LUNGS: Poor exchange. ABDOMEN: Bowel sounds distant. EXTREMITIES: No cyanosis, clubbing, or edema. Last 24 Hour Vital Signs Date Time Temp Pulse Resp B/P (MAP) Pulse Ox O2 Delivery O2 Flow Rate FiO2 04/26/20 10:33 100 Venturi Mask 10.0 50 04/26/20 10:30 10.0 50 04/26/20 08:50 69 20 100 70 04/26/20 08:00 97.5 74 18 136/55 (82) 100 04/26/20 08:00 70 04/26/20 08:00 Bi-pap 04/26/20 08:00 100 04/26/20 06:39 66 22 100 70 04/26/20 05:30 62 20 100 70 04/26/20 04:00 Bi-pap 04/26/20 04:00 97.1 59 18 140/56 (84) 100 04/26/20 04:00 100 04/26/20 03:33 70 04/26/20 03:12 61 19 100 70 04/26/20 01:13 60 20 100 70 04/26/20 00:00 96.8 68 18 133/70 (91) 100 04/26/20 00:00 Bi-pap 04/26/20 00:00 100 04/25/20 23:29 65 20 100 70 04/25/20 23:29 69 04/25/20 21:10 66 18 100 70 04/25/20 20:00 Bi-pap 04/25/20 20:00 96.6 66 19 114/68 (83) 100 04/25/20 20:00 100 04/25/20 20:00 72 04/25/20 19:30 64 18 100 70 04/25/20 16:36 81 18 99 80 04/25/20 16:00 96.8 67 19 117/52 (73) 100 04/25/20 16:00 74 04/25/20 16:00 Bi-pap 04/25/20 16:00 100 04/25/20 15:14 82 21 98 80 04/25/20 13:04 74 22 98 80 04/25/20 12:00 98.4 71 21 111/74 (86) 99 04/25/20 12:00 76 04/25/20 12:00 Bi-pap 04/25/20 12:00 100 Intake and Output 04/25/20 04/26/20 19:00 07:00 Intake Total 730 ml 1136.25 ml Output Total 400 ml 300 ml Balance 330 ml 836.25 ml IV Total 730 ml 1136.25 ml Output Urine Total 400 ml 300 ml # Bowel Movements 2 2 Laboratory Tests Test 04/25/20 16:51 04/25/20 21:11 04/26/20 04:22 04/26/20 05:13 POC Whole Blood Glucose Pending 110 MG/DL (74-106) H 111 MG/DL (74-106) H White Blood Count 7.2 K/UL (4.8-10.8) Red Blood Count 3.19 M/UL (4.70-6.10) L Hemoglobin 10.2 G/DL (14.2-18.0) L Hematocrit 32.0 % (42.0-52.0) L Mean Corpuscular Volume 100 FL (80-99) H Mean Corpuscular Hemoglobin 32.0 PG (27.0-31.0) H Mean Corpuscular Hemoglobin Concent 31.9 G/DL (32.0-36.0) L Red Cell Distribution Width 14.0 % (11.6-14.8) Platelet Count 137 K/UL (150-450) L Mean Platelet Volume 7.2 FL (6.5-10.1) Neutrophils (%) (Auto) 81.5 % (45.0-75.0) H Lymphocytes (%) (Auto) 9.7 % (20.0-45.0) L Monocytes (%) (Auto) 4.2 % (1.0-10.0) Eosinophils (%) (Auto) 4.0 % (0.0-3.0) H Basophils (%) (Auto) 0.6 % (0.0-2.0) Sodium Level 157 MMOL/L (136-145) H Potassium Level 3.4 MMOL/L (3.5-5.1) L Chloride Level 126 MMOL/L (98-107) H Carbon Dioxide Level 23 MMOL/L (21-32) Anion Gap 8 mmol/L (5-15) Blood Urea Nitrogen 41 mg/dL (7-18) H Creatinine 1.2 MG/DL (0.55-1.30) Estimat Glomerular Filtration Rate 58.6 mL/min (>60) Glucose Level 107 MG/DL (74-106) H Hemoglobin A1c 5.6 % (4.3-6.0) Uric Acid 4.4 MG/DL (2.6-7.2) Calcium Level 7.8 MG/DL (8.5-10.1) L Phosphorus Level 3.0 MG/DL (2.5-4.9) Magnesium Level 2.2 MG/DL (1.8-2.4) Iron Level 15 ug/dL (50-175) L Total Iron Binding Capacity 98 ug/dL (250-450) L Percent Iron Saturation 15 % (15-50) Unsaturated Iron Binding 83 ug/dL (112-346) L Ferritin 1602 NG/ML (8-388) H Total Bilirubin 0.5 MG/DL (0.2-1.0) Gamma Glutamyl Transpeptidase 9 U/L (5-85) Aspartate Amino Transf (AST/SGOT) 34 U/L (15-37) Alanine Aminotransferase (ALT/SGPT) 23 U/L (12-78) Alkaline Phosphatase 94 U/L (46-116) Ammonia 17 umol/L (11-32) Total Creatine Kinase 293 U/L (26-308) C-Reactive Protein, Quantitative 23.9 mg/dL (0.00-0.90) H Pro-B-Type Natriuretic Peptide 805 pg/mL (0-125) H Total Protein 4.9 G/DL (6.4-8.2) L Albumin 1.8 G/DL (3.4-5.0) L Globulin 3.1 g/dL Albumin/Globulin Ratio 0.6 (1.0-2.7) L Triglycerides Level 99 MG/DL (30-150) Cholesterol Level 88 MG/DL (< 200) LDL Cholesterol 43 mg/dL (<100) HDL Cholesterol 16 MG/DL (40-60) L Cholesterol/HDL Ratio 5.5 (3.3-4.4) H Vitamin B12 Level 331 PG/ML (193-986) Folate 4.3 NG/ML (8.6-58.9) L Thyroid Stimulating Hormone (TSH) 2.840 uiU/mL (0.358-3.740) Test 04/26/20 07:25 04/26/20 11:09 Arterial Blood pH 7.478 (7.350-7.450) Arterial Blood Partial Pressure CO2 24.9 mmHg (35.0-45.0) *L Arterial Blood Partial Pressure O2 192.5 mmHg (75.0-100.0) H Arterial Blood HCO3 18.0 mmol/L (22.0-26.0) L Arterial Blood Oxygen Saturation 99.2 % (95-100) Arterial Blood Base Excess -4.5 (-2-2) L Pepe Test Positive POC Whole Blood Glucose Pending Microbiology Date/Time Source Procedure Growth Status 04/26/20 06:00 Nasopharynx - Final Complete 04/26/20 06:00 Nasopharynx - Final Complete Height (Feet): 6 Height (Inches): 0.00 Weight (Pounds): 148 Medications Current Medications Medications (Trade) Dose Ordered Sig/Lopez Route PRN Reason Start Time Stop Time Status Last Admin Dose Admin Acetaminophen (Tylenol) 650 mg Q4H PRN ORAL fever 04/25/20 00:00 05/25/20 00:00 Albuterol/ Ipratropium (Albuterol/ Ipratropium) 3 ml Q4H PRN HHN Shortness of Breath 04/25/20 00:00 04/30/20 00:00 Cefepime HCl 1 gm/ Dextrose 55 ml @ 110 mls/hr EVERY 12 HOURS IV 04/25/20 09:00 05/02/20 08:59 04/26/20 08:38 Dextrose 1,000 ml @ 75 mls/hr [id number] IV 04/25/20 10:30 05/25/20 10:29 04/26/20 00:15 Dextrose (Dextrose 50%) 25 ml Q30M PRN IV Hypoglycemia 04/25/20 00:00 07/24/20 00:00 Dextrose (Dextrose 50%) 50 ml Q30M PRN IV Hypoglycemia 04/25/20 00:00 07/24/20 00:00 Escitalopram Oxalate (Lexapro) 10 mg DAILY ORAL 04/25/20 09:00 05/25/20 08:59 Heparin Sodium (Porcine) (Heparin 5000 units/ml) 5,000 units EVERY 12 HOURS SUBQ 04/25/20 09:00 06/09/20 08:59 04/26/20 08:41 Insulin Aspart (NovoLOG) BEFORE MEALS AND HS SUBQ 04/25/20 06:30 07/24/20 06:29 Lamotrigine (LaMICtal) 25 mg DAILY ORAL 04/25/20 09:00 05/25/20 08:59 Lorazepam (Ativan 2mg/ml 1ml) 0.5 mg Q4H PRN IV Agitation 04/25/20 01:00 05/02/20 00:59 Memantine (Namenda) 5 mg TWICE A DAY ORAL 04/25/20 09:00 05/25/20 08:59 Nitroglycerin (Ntg) 0.4 mg Q5M PRN SL Prn Chest Pain 04/25/20 00:00 05/25/20 00:00 Olanzapine (ZyPREXA) 5 mg DAILY ORAL 04/25/20 09:00 06/09/20 08:59 Ondansetron HCl (Zofran) 4 mg Q6H PRN IVP Nausea & Vomiting 04/25/20 00:00 05/25/20 00:00 Polyethylene Glycol (Miralax) 17 gm DAILYPRN PRN ORAL Constipation 04/25/20 00:00 05/25/20 00:00 Promethazine HCl/ Codeine (Phenergan with Codeine) 5 ml Q4H PRN ORAL For Cough 04/25/20 00:00 05/25/20 00:00 Temazepam (Restoril) 15 mg HSPRN PRN ORAL Insomnia 04/25/20 00:00 05/02/20 00:00 Vancomycin HCl (Vanco pharmacy to dose) 1 ea DAILY PRN MISC Per rx protocol 04/25/20 00:00 05/25/20 00:00 Vancomycin HCl 1.5 gm/Sodium Chloride 275 ml @ 137.5 mls/ hr Q24H IVPB 04/25/20 02:00 04/30/20 01:59 04/26/20 01:52 Assessment/Plan Assessment/Plan: Abx: IV Vancomycin 04/25- Cefepime 04/24- Assessment: Sepsis UTI -u/a wbc 50-60, nit neg, leuk +1; ucx p Fever; improving No leukocytosis -04/26 influenza screen neg -04/24 CXR: No acute cardiopulmonary disease. covid rapid PCR neg Bcx p Acute hypoxic resp failure- SP NRB>Bipap> VM COPD DM2 HTN schizophrenia malnutrition CVA w/ left spastic hemiparesis vascular dementia schizoaffective-bipolar type SNF resident ([facility]) Plan: -COntinue empiric CEfepime #3 and IV Vancomycin #2 -f/u cx -Monitor CBC/CMP, temperatures -aspiration precautions -CXR am Thank you for consulting [facility]. Will continue to follow along with you. Discussed with Babita Malave M.D. Apr 26, 2020 12:01
--- NOTE | 2020-04-26 12:41 | NUR ---
NURSE NOTES: Dr. Morales made aware blood culture resulted gram + cocci in cluster. Per MD, blood culture x2, Order noted, entered, carried out. Will continue to monitor .
--- NOTE | 2020-04-26 13:03 | NUR ---
NURSE NOTES: Dr. Downey made aware of ABG result, no new order received at this time, Will continue to follow up.
--- NOTE | 2020-04-26 13:21 | Diagnostic Imaging Report ---
Indication: Shortness of breath Technique: One view of the chest Comparison: 04/24/2020 Findings: The heart remains borderline enlarged. The lungs and pleural spaces are clear Impression: Borderline cardiomegaly. No acute process
--- NOTE | 2020-04-26 13:59 | NUR ---
*-*DISCHARGE PLANNING*-* PATIENT HAS BEEN REFERRED TO: J[facility] PERE[facility] P: [phone]
--- NOTE | 2020-04-26 14:04 | NUR ---
NURSE NOTES: Spoke to speech therapist, logan Coley will see the patient shortly.
--- NOTE | 2020-04-26 14:06 | Nephrology Progress Note ---
Assessment/Plan Problem List: (1) KORY (acute kidney injury) (2) Hypernatremia (3) Dehydration (4) Acute respiratory failure Assessment Patient presents with acute hypoxic respiratory failure requiring BiPAP Sepsis lactic acidosis KORY Dehydration, hypernatremia History of COPD Anemia Low BMI, malnutrition. BMI of 20.1 History of CVA History of diabetes mellitus Plan Contreras catheter IV D5W Monitor electrolytes and renal parameters Antibiotics Avoid nephrotoxic's 2D echocardiogram Per orders Subjective ROS Limited/Unobtainable: Yes Objective Objective Last 24 Hour Vital Signs Date Time Temp Pulse Resp B/P (MAP) Pulse Ox O2 Delivery O2 Flow Rate FiO2 04/26/20 13:22 100 Non-Rebreather 15.0 100 04/26/20 12:00 97.0 70 20 149/92 (111) 100 04/26/20 12:00 Bi-pap 04/26/20 12:00 72 04/26/20 10:33 100 Venturi Mask 10.0 50 04/26/20 10:30 10.0 50 04/26/20 08:50 69 20 100 70 04/26/20 08:00 97.5 74 18 136/55 (82) 100 04/26/20 08:00 70 04/26/20 08:00 Bi-pap 04/26/20 08:00 100 04/26/20 06:39 66 22 100 70 04/26/20 05:30 62 20 100 70 04/26/20 04:00 Bi-pap 04/26/20 04:00 97.1 59 18 140/56 (84) 100 04/26/20 04:00 100 04/26/20 03:33 70 04/26/20 03:12 61 19 100 70 04/26/20 01:13 60 20 100 70 04/26/20 00:00 96.8 68 18 133/70 (91) 100 04/26/20 00:00 Bi-pap 04/26/20 00:00 100 04/25/20 23:29 65 20 100 70 04/25/20 23:29 69 04/25/20 21:10 66 18 100 70 04/25/20 20:00 Bi-pap 04/25/20 20:00 96.6 66 19 114/68 (83) 100 04/25/20 20:00 100 04/25/20 20:00 72 04/25/20 19:30 64 18 100 70 04/25/20 16:36 81 18 99 80 04/25/20 16:00 96.8 67 19 117/52 (73) 100 04/25/20 16:00 74 04/25/20 16:00 Bi-pap 04/25/20 16:00 100 04/25/20 15:14 82 21 98 80 Intake and Output 04/25/20 04/26/20 19:00 07:00 Intake Total 730 ml 1136.25 ml Output Total 400 ml 300 ml Balance 330 ml 836.25 ml IV Total 730 ml 1136.25 ml Output Urine Total 400 ml 300 ml # Bowel Movements 2 2 Laboratory Tests 04/25/20 16:51: POC Whole Blood Glucose [Pending] 04/25/20 21:11: POC Whole Blood Glucose 110H 04/26/20 04:22: White Blood Count 7.2, Red Blood Count 3.19L, Hemoglobin 10.2L, Hematocrit 32.0L , Mean Corpuscular Volume 100H, Mean Corpuscular Hemoglobin 32.0H, Mean Corpuscular Hemoglobin Concent 31.9L, Red Cell Distribution Width 14.0, Platelet Count 137L, Mean Platelet Volume 7.2, Neutrophils (%) (Auto) 81.5H, Lymphocytes (%) (Auto) 9.7L, Monocytes (%) (Auto) 4.2, Eosinophils (%) (Auto) 4.0H, Basophils (%) (Auto) 0.6, Sodium Level 157H, Potassium Level 3.4L, Chloride Level 126H, Carbon Dioxide Level 23, Anion Gap 8, Blood Urea Nitrogen 41H, Creatinine 1.2, Estimat Glomerular Filtration Rate 58.6, Glucose Level 107H, Hemoglobin A1c 5.6, Uric Acid 4.4, Calcium Level 7.8L, Phosphorus Level 3.0, Magnesium Level 2.2, Iron Level 15L, Total Iron Binding Capacity 98L, Percent Iron Saturation 15, Unsaturated Iron Binding 83L, Ferritin 1602H, Total Bilirubin 0.5, Gamma Glutamyl Transpeptidase 9, Aspartate Amino Transf (AST/SGOT) 34, Alanine Aminotransferase (ALT/SGPT) 23, Alkaline Phosphatase 94, Ammonia 17, Total Creatine Kinase 293, C-Reactive Protein, Quantitative 23.9H, Pro-B-Type Natriuretic Peptide 805H, Total Protein 4.9L, Albumin 1.8L, Globulin 3.1, Albumin/Globulin Ratio 0.6L, Triglycerides Level 99, Cholesterol Level 88, LDL Cholesterol 43, HDL Cholesterol 16L, Cholesterol/HDL Ratio 5.5H, Vitamin B12 Level 331, Folate 4.3L, Thyroid Stimulating Hormone (TSH) 2.840 04/26/20 05:13: POC Whole Blood Glucose 111H 04/26/20 07:25: Arterial Blood pH 7.478H, Arterial Blood Partial Pressure CO2 24.9*L, Arterial Blood Partial Pressure O2 192.5H, Arterial Blood HCO3 18.0L, Arterial Blood Oxygen Saturation 99.2, Arterial Blood Base Excess -4.5L, Pepe Test Positive 04/26/20 11:09: POC Whole Blood Glucose [Pending] 04/26/20 11:40: Arterial Blood pH 7.390, Arterial Blood Partial Pressure CO2 19.7*L, Arterial Blood Partial Pressure O2 55.4L, Arterial Blood HCO3 11.9*L, Arterial Blood Oxygen Saturation 90.2L, Arterial Blood Base Excess -11.9*L, Pepe Test Positive Height (Feet): 6 Height (Inches): 0.00 Weight (Pounds): 148 General Appearance: mild distress EENT: other - On BiPAP Cardiovascular: normal rate Respiratory/Chest: decreased breath sounds Abdomen: distended Maximino Castillo MD Apr 26, 2020 14:06
[2020-04-26 16:00] VITALS: BP 142/69
--- NOTE | 2020-04-26 16:35 | NUR ---
CASE MANAGEMENT:REVIEW 80 YR OLD MALE BIBA FROM [facility] SI: RESPIRATORY FAILURE HYPERNATREMIA. DEHYDRATION 101.5 97 18 115/41 97% ON 15L NON REBREATHER NA+159 BUN+39 IS: PLACED ON BIPAP 2L NS BOLUS IV CEFEPIME CXR BLOOD CX : TO STEP DOWN UNIT
--- NOTE | 2020-04-26 17:37 | Diagnostic Imaging Report ---
EXAM: XR Abdomen, 2 Views CLINICAL HISTORY: NGT TECHNIQUE: Frontal view of the abdomen/pelvis with upright view of the abdomen. COMPARISON: No relevant prior studies available. FINDINGS: Intraperitoneal space: No free air. Gastrointestinal tract: Unremarkable. Bones/joints: Unremarkable. Tubes, lines and devices: Enteric tube with tip in the gastric body. IMPRESSION: Enteric tube with tip in the gastric body.
--- NOTE | 2020-04-26 18:00 | NUR ---
NURSE NOTES: Per Dr. Carlin, NGT inserted, Awaiting for KUB. Order noted, entered, carried out.
--- NOTE | 2020-04-26 18:47 | NUR ---
SPEECH PATHOLOGY NOTE: INITIAL IMPRESSIONS: MOD/SEVERE OROPHARYNGEAL DYSPHAGIA. QUESTIONABLE RISK FOR SILENT ASPIRATION. SEE EVALUATION FOR FULL DETAILS. RECOMMENDATIONS: 1. NPO 2. CONSIDER NON/ORAL FEEDING MANAGEMENT 3. VIDEO SWALLOW STUDY TO DETERMINE EFFICACY OF OROPHARYNGEAL PHASE OF SWALLOW 4. SKILLED ST FOR DYSPHAGIA TX/MANAGEMENT, VIDEO SWALLOW STUDY DISCUSSED FINDINGS WITH CRUZ LAY. THANK YOU FOR THIS REFERRAL.
--- NOTE | 2020-04-26 18:53 | NUR ---
NURSE NOTES: Per Dr. Short, Vital AF @ 50ml/h, Order noted, entered, carried out.
--- NOTE | 2020-04-26 19:07 | NUR ---
NURSE HAND-OFF REPORT: Important Events on Shift: ST failed, NGT inserted Patient Status: stable Diet: Vital AF @ goal of 40ml/h ; now @ 20ml/h Pending Orders: na Pending Results/Labs:na Pending MD notification:na Latest Vital Signs: Temperature 97.5 , Pulse 79 , B/P 142 /69 , Respiratory Rate 20 , O2 SAT 100 , Non-Rebreather, O2 Flow Rate 15.0 . Vital Sign Comment: stable EKG Rhythm: Sinus Rhythm Rhythm change?: N MD Notified?: - MD Response: Latest Andersen Fall Score: 50 Fall Risk: High Risk Safety Measures: Call light Within Reach, Bed Alarm Zone 2, Side Rails Side Rails x3, Bed position Low and Locked. Fall Precautions: Yellow Socks Yellow Gown Door Sign Patient Fall Education Report given to CRUZ PACE.
--- NOTE | 2020-04-26 19:30 | NUR ---
NURSE NOTES: Received report from CRUZ Lassiter. Pt awake in bed, alert x 2, responds to name and follows commands, afebrile, SOB on exertion, noticeable mouth breathing and use of accessory muscles noted. On NRB at 15lpm saturating at 100% and RR of 23. With left NGT in place intact and patent running vital af at 20cc/hr with goal of 50cc/hr. Pt tolerating well without any residual. With Right hand 22 g IV line intact, patent and asymptomatic. With Contreras catheter to urine bag draining dakota yellow urine. Call light within reach. HOB elevated. Needs were attended. Bed rails are up and padded. bed wheels are locked. Continue plan of care Addendum: 04/26/20 at 2004 by KATELYNN Davis RN Addendum: with right wrist soft restraints. Skin intact and ROM done. No new skin changes noted. Will continue to monitor.
[2020-04-26 21:00] VITALS: BP 137/83
[2020-04-27] VITALS: BP 149/76
--- NOTE | 2020-04-27 02:00 | NUR ---
NURSE NOTES: Pt was given partial bed bath. gown and linen change. Pt tolerated well. No discomforts note. continue to monitor
[2020-04-27] MEDS: Vancomycin 1.5 GM in NS 275 ML IVPB SCH (02:13)
[2020-04-27 04:00] VITALS: BP 145/79
[2020-04-27 05:09] LABS: BASOPHILS % (AUTO) 0.4 % (0.0-2.0); EOSINOPHILS % (AUTO) 3.3 % (0.0-3.0); HEMOGLOBIN 9.7 G/DL (14.2-18.0); LYMPHOCYTES % (AUTO) 11.1 % (20.0-45.0); MEAN CORPUSCULAR VOLUME 99 FL (80-99); MONOCYTES % (AUTO) 4.2 % (1.0-10.0); NEUTROPHILS % (AUTO) 81.1 % (45.0-75.0); PLATELET COUNT 135 K/UL (150-450); RED BLOOD COUNT 3.14 M/UL (4.70-6.10); RED CELL DISTRIBUTION WIDTH 13.9 % (11.6-14.8); WHITE BLOOD COUNT 6.6 K/UL (4.8-10.8)
[2020-04-27 05:36] LABS: ALANINE AMINOTRANSFERASE 19 U/L (12-78); ALBUMIN 1.5 G/DL (3.4-5.0); ALBUMIN/GLOBULIN RATIO 0.5 (1.0-2.7); ALKALINE PHOSPHATASE 101 U/L (46-116); ANION GAP 7 mmol/L (5-15); ASPARTATE AMINO TRANSFERASE 26 U/L (15-37); BILIRUBIN,TOTAL 0.4 MG/DL (0.2-1.0); BLOOD UREA NITROGEN 32 mg/dL (7-18); CALCIUM 7.9 MG/DL (8.5-10.1); CARBON DIOXIDE 23 MMOL/L (21-32); CHLORIDE 124 MMOL/L (98-107); POTASSIUM 3.5 MMOL/L (3.5-5.1); SODIUM 154 MMOL/L (136-145)
[2020-04-27] MEDS: NovoLOG Insulin Flexpen SUBQ SCH ×4 (05:46→20:36)
--- NOTE | 2020-04-27 06:00 | NUR ---
NURSE NOTES: Pt asleep in bed. saturating at 100% via NRB at 15lpm. No other discomforts noted. continue to monitor
--- NOTE | 2020-04-27 07:15 | NUR ---
NURSE HAND-OFF REPORT: Important Events on Shift: stable Patient Status: stable Diet: vital af at 40cc/hr Pending Orders: n Pending Results/Labs:n Pending MD notification:n Latest Vital Signs: Temperature 97.7 , Pulse 68 , B/P 145 /79 , Respiratory Rate 20 , O2 SAT 100 , Non-Rebreather, O2 Flow Rate 15.0 . Vital Sign Comment: n EKG Rhythm: Sinus Rhythm Rhythm change?: N MD Notified?: - MD Response: Latest Andersen Fall Score: 50 Fall Risk: High Risk Safety Measures: Call light Within Reach, Bed Alarm Zone 2, Side Rails Side Rails x3, Bed position Low and Locked. Fall Precautions: Yellow Socks Yellow Gown Door Sign Patient Fall Education Report given to CRUZ Meeks.
--- NOTE | 2020-04-27 07:51 | Psychiatry Consultation ---
Psychiatry Consultation Psychiatry Consultation Chief Complaint: Dyspnea/Respdistress History of Present Illness: 80-year-old male patient with respiratory failure causing him to have confusion altered mental status confusion and declining cognition plus baseline. Patient does seem confused and disorganized and he has a significant decline in cognition below his baseline is why his attending is requested daily psychiatric consultation at this time Mental status examination: 80-year-old male appearance is disheveled attitude irritable agitated affect guarded and restricted intellect poor mood depressed anxious motor activity psychomotor agitation attention span is poor orientation x2 speech nonsensical thought process disorganized and illogical Insight and judgment is poor Allergies: Coded Allergies: No Known Allergies (Unverified , 06/11/17) Medication History Scheduled Ascorbic Acid* (Vitamin C*), 500 MG ORAL DAILY, (Reported) Aspirin (Aspirin EC), 81 MG ORAL DAILY, (Reported) Benazepril Hcl* (Lotensin*), 20 MG ORAL BID, (Reported) Calcium Carbonate/Vitamin D3 (Calcium 500 + Vit D 200 Tablet), 1 EACH PO BID, (Reported) Docusate Sodium* (Colace*), 100 MG ORAL DAILY, (Reported) Escitalopram Oxalate* (Lexapro*), 10 MG ORAL DAILY, (Reported) Folic Acid* (Folic Acid*), 1 MG ORAL DAILY, (Reported) Folic Acid/Vitamin B Comp W-C (Sarah-Ruben Tablet), 0.8 MG PO DAILY, (Reported) Heparin Sod (Porcine) (Heparin Sodium*), 5,000 UNITS SUBQ DAILY, (Reported) Hydralazine Hcl* (Hydralazine Hcl*), 10 MG ORAL Q4HR, (Reported) Insulin Aspart* (Novolog*), 0 SUBQ BEFORE MEALS AND HS, (Reported) Lamotrigine* (Lamictal*), 25 MG ORAL DAILY, (Reported) Lamotrigine* (Lamictal*), 25 MG ORAL DAILY, (Reported) Levofloxacin* (Levaquin*), 750 MG ORAL DAILY, (Reported) Lisinopril* (Lisinopril*), 20 MG ORAL DAILY, (Reported) Lorazepam* (Ativan*), 0.5 MG ORAL EVERY 6 HOURS, (Reported) Memantine Hcl* (Namenda*), 5 MG ORAL TWICE A DAY, (Reported) Memantine Hcl* (Namenda*), 5 MG ORAL DAILY, (Reported) Multivitamin With Minerals (Multivitamins With Minerals*), 1 TAB ORAL DAILY, (Reported) Olanzapine* (Zyprexa*), 5 MG ORAL DAILY, (Reported) Olanzapine* (Zyprexa*), 5 MG ORAL HS, (Reported) Vitamin B Cmplx/Vit C/Folic AC (Nephro-Ruben Tablet), 1 TAB ORAL DAILY, (Reported) Scheduled PRN Acetaminophen* (Acetaminophen 325MG Tablet*), 650 MG ORAL Q4H PRN for Fever/Headache/Mild Pain, (Reported) Ipratropium/Albuterol Sulfate (DuoNeb 0.5-3(2.5)mg/3ml), 3 ML HHN EVERY 4 HOURS PRN for Shortness of Breath, (Reported) Magnesium Hydroxide* (Milk Of Magnesia*), 30 ML ORAL EVERY 6 HOURS PRN for Constipation, (Reported) Nitroglycerin 0.4MG table* (Nitroglycerin*), 0.4 MG SL .Q5MIN X 3 DOSES PRN for CHEST PAIN, (Reported) Temazepam* (Restoril*), 15 MG ORAL BEDTIME PRN for Insomnia, (Reported) Miscellaneous Medications Cranberry Extract (Cranberry), 425 MG PO, (Reported) Insulin Lispro (Humalog), 0 SUBQ, (Reported) Objective Data Height (Feet): 6 Height (Inches): 0.00 Weight (Pounds): 148 Assessment/Plan Assessment/Plan: Continue the patient on Lamictal, Zyprexa, Ativan and Namenda. 20min of insight oriented psychotherapy to help him recognize his psychical and cogintive deficits so that he has less depression and better impulse control. 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
[2020-04-27 08:00] VITALS: BP 145/79
--- NOTE | 2020-04-27 08:30 | Consultation ---
DATE OF CONSULTATION: 04/27/2020 CHIEF COMPLAINT: Dysphagia. HISTORY OF PRESENT ILLNESS: Most of history per chart. The patient is a 77-year-old residential patient with past medical history of COPD, diabetes, schizophrenia, CVA, was admitted to the hospital with sepsis. Since admission, the patient is unable to swallow, had an NG tube placement for feeding. GI consult requested for possible PEG placement. PAST MEDICAL HISTORY: 1. COPD. 2. Diabetes. 3. Schizophrenia. 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 5. Dementia. PAST SURGICAL HISTORY: Unknown. ALLERGIES: No known drug allergies. MEDICATIONS: Please see medication reconciliation list. SOCIAL HISTORY: The patient currently lives in a residential. No history of tobacco, alcohol, or drug abuse. FAMILY HISTORY: Noncontributory. REVIEW OF SYSTEMS: Unable to obtain. PHYSICAL EXAMINATION: VITAL SIGNS: Temperature is 97.7, pulse 67, respirations 20, blood pressure 145/79. HEENT: Normocephalic and atraumatic. Mil pale conjunctivae. NECK: Supple. No evidence of obvious lymphadenopathy. CARDIOVASCULAR: Tachy. Regular rate. Plus S1, S2. LUNGS: Decreased breath sounds bilaterally diffusely on the supine exam. ABDOMEN: Soft, nontender. No rebound. No guarding. No peritoneal sign. EXTREMITIES: No cyanosis. No clubbing. NEUROLOGIC: Nonfocal and limited. LABORATORY AND DIAGNOSTIC DATA: White count is 6.6, hemoglobin 9.7, hematocrit 31, platelet count is 135. Chem-7, sodium 154, potassium 3.5, BUN 32, creatinine is 1.0, glucose is 130. ASSESSMENT AND PLAN: This is a 80-year-old male with numerous medical problems. At this time from GI standpoint, the patient has anemia and dysphagia. In terms of anemia, we are going to start a workup including iron panel, B12, folate, stool for OB, monitor H and H, transfuse as needed to keep hemoglobin above 7.7 and given severe stress at this time we are going to put him on PPI for GI prophylaxis. In terms of dysphagia, currently has an NG tube in place and getting feeding through an NG tube, tolerating feeding for now. We will monitor the patient on daily basis. If the patient condition improves, we will order swallow evaluation. If the patient's condition gets worse to the point that he has low chance of eating swallow, in the near future we are going to consider doing a PEG placement when the patient is more stable respiratory sarabia. I want to thank Dr. German Carlin, for this kind referral. Nathanovi Short M.D. DR: Hal JOB#: [id number] CC: German Carlin D.O.
--- NOTE | 2020-04-27 08:56 | NUR ---
NURSE NOTES:Skin/Wound assessment Sacral pressure ulcer stage 2 2.5x1.5x0.2 pink tissue ,small amount serosanguineous drainage ,dark red periwound,Triad and Optifoam applied.Right lateral ankle pressure ulcer stage UTD 2.6x1.7x.2 100% black eschar scant serosanguineous drainage Thera Honey and Optifoam applied.Right lateral foot pressure ulcer stage 2 1.1x0.4x0.2 pink tissue scant drainage Triad and Optifoam applied.Right Heel pressure ulcer DTI 8.0x6.5x0.0 dark purple in color Optifoam applied and pillow to offload.Right forearm skin tear 8.0x2.5x0.2 small amount of drainage Xeroform and Optifoam applied.
--- NOTE | 2020-04-27 09:00 | NUR ---
NURSE NOTES: Patient in bed not in any acute respiratory distress on NRM 15/L O2 sat 95 %. Hob elevated. NGT patent. no residual. Aspiration precaution observed. Noted dvt left and right leg. Dr ham made aware. With new order noted and carried out.
[2020-04-27] MEDS ORDERED: SENNA8.6 M2 PO (09:34)
[2020-04-27] MEDS ORDERED: LISINOPRIL20 MG ORAL (09:34)
[2020-04-27] MEDS: Potassium Phosphate 15mm/250ml 250 ML IVPB SCH ×2 (09:35→13:56)
[2020-04-27] MEDS ORDERED: FLEET ENEMA133 ML RECTAL (09:37)
[2020-04-27] MEDS ORDERED: PRO-STAT LIQUID30 ML ORAL (09:37)
[2020-04-27] MEDS ORDERED: DULCOLAX10 MG RC (09:37)
--- NOTE | 2020-04-27 09:37 | Nephrology Progress Note ---
Assessment/Plan Problem List: (1) KORY (acute kidney injury) (2) Hypernatremia (3) Dehydration (4) Acute respiratory failure Assessment Patient presents with acute hypoxic respiratory failure requiring BiPAP Sepsis lactic acidosis KORY Dehydration, hypernatremia History of COPD Anemia Low BMI, malnutrition. BMI of 20.1 History of CVA History of diabetes mellitus Plan April 27: Continue D5W. Continue pulmonary support. Monitor renal parameters and electrolytes. Continue per consultants. Patient full code. Remains on nonrebreathing mask. Contreras catheter IV D5W Monitor electrolytes and renal parameters Antibiotics Avoid nephrotoxic's 2D echocardiogram Per orders Subjective ROS Limited/Unobtainable: Yes Objective Objective Last 24 Hour Vital Signs Date Time Temp Pulse Resp B/P (MAP) Pulse Ox O2 Delivery O2 Flow Rate FiO2 04/27/20 07:55 100 Non-Rebreather 15.0 100 04/27/20 04:00 Non-Rebreather 04/27/20 04:00 97.7 67 20 145/79 (101) 100 04/27/20 04:00 68 04/27/20 04:00 15.0 04/27/20 00:00 97.4 72 20 149/76 (100) 100 04/27/20 00:00 15.0 04/27/20 00:00 Non-Rebreather 04/26/20 23:27 73 04/26/20 21:00 97.4 77 20 137/83 (101) 100 04/26/20 20:00 Non-Rebreather 04/26/20 20:00 15.0 04/26/20 19:36 100 Non-Rebreather 15.0 100 04/26/20 19:08 79 04/26/20 16:00 15.0 04/26/20 16:00 79 04/26/20 16:00 Non-Rebreather 04/26/20 16:00 97.5 81 20 142/69 (93) 100 04/26/20 13:22 100 Non-Rebreather 15.0 100 04/26/20 13:00 15.0 04/26/20 12:00 97.0 70 20 149/92 (111) 100 04/26/20 12:00 Bi-pap 04/26/20 12:00 72 04/26/20 10:33 100 Venturi Mask 10.0 50 04/26/20 10:30 10.0 50 Intake and Output 04/26/20 04/27/20 19:00 07:00 Intake Total 430 ml 1784.0 ml Output Total 400 ml 400 ml Balance 30 ml 1384.0 ml Free Water 50 ml IV Total 430 ml 1334.0 ml Tube Feeding 400 ml Output Urine Total 400 ml 400 ml # Bowel Movements 2 Laboratory Tests 04/26/20 11:09: POC Whole Blood Glucose [Pending] 04/26/20 11:40: Arterial Blood pH 7.390, Arterial Blood Partial Pressure CO2 19.7*L, Arterial Blood Partial Pressure O2 55.4L, Arterial Blood HCO3 11.9*L, Arterial Blood Oxygen Saturation 90.2L, Arterial Blood Base Excess -11.9*L, Pepe Test Positive 04/26/20 17:00: POC Whole Blood Glucose [Pending] 04/26/20 20:44: POC Whole Blood Glucose 121H 04/27/20 02:50: White Blood Count 6.6, Red Blood Count 3.14L, Hemoglobin 9.7L, Hematocrit 31.0L, Mean Corpuscular Volume 99, Mean Corpuscular Hemoglobin 31.0, Mean Corpuscular Hemoglobin Concent 31.4L, Red Cell Distribution Width 13.9, Platelet Count 135L, Mean Platelet Volume 7.1, Neutrophils (%) (Auto) 81.1H, Lymphocytes (%) (Auto) 11.1L, Monocytes (%) (Auto) 4.2, Eosinophils (%) (Auto) 3.3H, Basophils (%) (Auto) 0.4, Erythrocyte Sedimentation Rate 82H, Sodium Level 154H, Potassium Level 3.5, Chloride Level 124H, Carbon Dioxide Level 23, Anion Gap 7, Blood Urea Nitrogen 32H, Creatinine 1.0, Estimat Glomerular Filtration Rate > 60, Glucose Level 130H, Uric Acid 4.2, Calcium Level 7.9L, Phosphorus Level 2.0L, Magnesium Level 2.1, Total Bilirubin 0.4, Aspartate Amino Transf (AST/SGOT) 26, Alanine Aminotransferase (ALT/SGPT) 19, Alkaline Phosphatase 101, C-Reactive Protein, Quantitative 19.3H, Total Protein 4.7L, Albumin 1.5L, Globulin 3.2, Albumin/Globulin Ratio 0.5L 04/27/20 05:14: POC Whole Blood Glucose 118H Height (Feet): 6 Height (Inches): 0.00 Weight (Pounds): 148 General Appearance: mild distress EENT: other - On nonrebreather mask Cardiovascular: normal rate Respiratory/Chest: decreased breath sounds Abdomen: distended Maximino Castillo MD Apr 27, 2020 09:37
[2020-04-27] MEDS: Cefepime HCl 1 GM in D5W 55 ML IV SCH ×2 (09:42→20:36)
[2020-04-27] MEDS: Memantine 10mg tab ORAL SCH ×2 (09:42→17:04)
[2020-04-27] MEDS: Heparin 5000 units/ml inj SUBQ SCH (09:44)
[2020-04-27] MEDS ORDERED: Vitamin B12 1000mcg/ml Inj IM ONE (11:00)
--- NOTE | 2020-04-27 11:28 | Pulmonolgy Critical Care Note ---
Critical Care - Asmt/Plan Problems: (1) Acute respiratory failure (2) Acute deep vein thrombosis (DVT) (3) ATN (acute tubular necrosis) (4) Acute encephalopathy (5) UTI (urinary tract infection) (6) Protein-calorie malnutrition, severe (7) Diabetes (8) HTN (hypertension) (9) CVA (cerebral vascular accident) Respiratory: monitor respiratory rate, adjust FIO2, CXR Cardiac: continue to monitor HR/BP Renal: F/U I&O, check electrolytes Infectious Disease: check cultures Gastrointestinal: continue feedings/current rate Endocrine: monitor blood sugar, continue sliding scale insulin Hematologic: monitor H/H, transfuse if hgb<8.5 Neurologic: PRN Ativan, keep patient comfortable Time Spent (Minutes): 40 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, 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, 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 Care - Objective Last 24 Hour Vital Signs Date Time Temp Pulse Resp B/P (MAP) Pulse Ox O2 Delivery O2 Flow Rate FiO2 04/27/20 08:00 97.7 78 20 145/79 (101) 100 04/27/20 08:00 79 04/27/20 07:55 100 Non-Rebreather 15.0 100 04/27/20 04:00 Non-Rebreather 04/27/20 04:00 97.7 67 20 145/79 (101) 100 04/27/20 04:00 68 04/27/20 04:00 15.0 04/27/20 00:00 97.4 72 20 149/76 (100) 100 04/27/20 00:00 15.0 04/27/20 00:00 Non-Rebreather 04/26/20 23:27 73 04/26/20 21:00 97.4 77 20 137/83 (101) 100 04/26/20 20:00 Non-Rebreather 04/26/20 20:00 15.0 04/26/20 19:36 100 Non-Rebreather 15.0 100 04/26/20 19:08 79 04/26/20 16:00 15.0 04/26/20 16:00 79 04/26/20 16:00 Non-Rebreather 04/26/20 16:00 97.5 81 20 142/69 (93) 100 04/26/20 13:22 100 Non-Rebreather 15.0 100 04/26/20 13:00 15.0 04/26/20 12:00 97.0 70 20 149/92 (111) 100 04/26/20 12:00 Bi-pap 04/26/20 12:00 72 Status: somnolent Condition: critical HEENT: atraumatic, normocephalic Neck: full ROM Lungs: rales, rhonchi Heart: HR/BP stable Abdomen: soft, non-tender Micro: Microbiology Date/Time Source Procedure Growth Status 04/26/20 06:00 Nasopharynx - Final Complete 04/26/20 06:00 Nasopharynx - Final Complete 04/25/20 22:30 Sputum Gram Stain - Final Resulted 04/25/20 22:30 Sputum Sputum Culture - Preliminary NORMAL UPPER RESPIRATORY ANA AT 24 ... Resulted 04/24/20 20:00 Rectum - Final NO CARBAPENEM-RESISTANT ENTEROBACTERI... Complete 04/24/20 20:00 Rectum VRE Culture - Final Enterococcus Faecium - Vre Complete 04/24/20 20:00 Nasopharynx SARS-CoV-2 RdRp Gene Assay - Final Complete 04/24/20 20:00 Blood Blood Culture - Preliminary Resulted Accucheck: 118 Critical Care - Subjective ROS Limited/Unobtainable: Yes Interval Events: still on 100% NRM FI02: 100 Vent Support Breath Rate: 18 Vent Support Mode: BiLevel Sputum Amount: None Tube Feeding Amount: 40 I&O: Intake and Output 04/26/20 04/27/20 19:00 07:00 Intake Total 430 ml 1784.0 ml Output Total 400 ml 400 ml Balance 30 ml 1384.0 ml Free Water 50 ml IV Total 430 ml 1334.0 ml Tube Feeding 400 ml Output Urine Total 400 ml 400 ml # Bowel Movements 2 CXR: LYLE Labs: Laboratory Tests Test 04/26/20 11:40 04/26/20 17:00 04/26/20 20:44 04/27/20 02:50 Arterial Blood pH 7.390 (7.350-7.450) Arterial Blood Partial Pressure CO2 19.7 mmHg (35.0-45.0) *L Arterial Blood Partial Pressure O2 55.4 mmHg (75.0-100.0) L Arterial Blood HCO3 11.9 mmol/L (22.0-26.0) *L Arterial Blood Oxygen Saturation 90.2 % (95-100) L Arterial Blood Base Excess -11.9 (-2-2) *L Pepe Test Positive POC Whole Blood Glucose Pending 121 MG/DL (74-106) H White Blood Count 6.6 K/UL (4.8-10.8) Red Blood Count 3.14 M/UL (4.70-6.10) L Hemoglobin 9.7 G/DL (14.2-18.0) L Hematocrit 31.0 % (42.0-52.0) L Mean Corpuscular Volume 99 FL (80-99) Mean Corpuscular Hemoglobin 31.0 PG (27.0-31.0) Mean Corpuscular Hemoglobin Concent 31.4 G/DL (32.0-36.0) L Red Cell Distribution Width 13.9 % (11.6-14.8) Platelet Count 135 K/UL (150-450) L Mean Platelet Volume 7.1 FL (6.5-10.1) Neutrophils (%) (Auto) 81.1 % (45.0-75.0) H Lymphocytes (%) (Auto) 11.1 % (20.0-45.0) L Monocytes (%) (Auto) 4.2 % (1.0-10.0) Eosinophils (%) (Auto) 3.3 % (0.0-3.0) H Basophils (%) (Auto) 0.4 % (0.0-2.0) Erythrocyte Sedimentation Rate 82 MM/HR (0-20) H Sodium Level 154 MMOL/L (136-145) H Potassium Level 3.5 MMOL/L (3.5-5.1) Chloride Level 124 MMOL/L (98-107) H Carbon Dioxide Level 23 MMOL/L (21-32) Anion Gap 7 mmol/L (5-15) Blood Urea Nitrogen 32 mg/dL (7-18) H Creatinine 1.0 MG/DL (0.55-1.30) Estimat Glomerular Filtration Rate > 60 mL/min (>60) Glucose Level 130 MG/DL (74-106) H Uric Acid 4.2 MG/DL (2.6-7.2) Calcium Level 7.9 MG/DL (8.5-10.1) L Phosphorus Level 2.0 MG/DL (2.5-4.9) L Magnesium Level 2.1 MG/DL (1.8-2.4) Total Bilirubin 0.4 MG/DL (0.2-1.0) Aspartate Amino Transf (AST/SGOT) 26 U/L (15-37) Alanine Aminotransferase (ALT/SGPT) 19 U/L (12-78) Alkaline Phosphatase 101 U/L (46-116) C-Reactive Protein, Quantitative 19.3 mg/dL (0.00-0.90) H Total Protein 4.7 G/DL (6.4-8.2) L Albumin 1.5 G/DL (3.4-5.0) L Globulin 3.2 g/dL Albumin/Globulin Ratio 0.5 (1.0-2.7) L Test 04/27/20 05:14 POC Whole Blood Glucose 118 MG/DL (74-106) H Luzmaria Downey MD Apr 27, 2020 11:28
[2020-04-27] MEDS ORDERED: Heparin 5000 units/ml inj IV SCH ×2 (12:00)
--- NOTE | 2020-04-27 12:05 | General Progress Note ---
Progress Note Progress Note Patient needs CT angio to rule out PE. He has extensive DVT. He is on 100% NRM and his saturation is borderline. Luzmaria Downey MD Apr 27, 2020 12:05
[2020-04-27 12:34] VITALS: BP 179/59
--- NOTE | 2020-04-27 12:36 | Infectious Diseases Prog Note ---
Assessment/Plan Assessment: Sepsis UTI -u/a wbc 50-60, nit neg, leuk +1; ucx p Gram positive bacteremia- real vs contaminant -04/24 sp cx 1/2 GPC in clusters Fever; SP No leukocytosis -04/26 influenza screen neg CXR: Borderline cardiomegaly. No acute process -04/24 CXR: No acute cardiopulmonary disease. covid rapid PCR neg Acute hypoxic resp failure- SP NRB>Bipap> VM COPD DM2 HTN schizophrenia malnutrition CVA w/ left spastic hemiparesis vascular dementia schizoaffective-bipolar type SNF resident (Eve[facility] peterson) Plan: -COntinue empiric CEfepime #4 and IV Vancomycin #3 -f/u cx -Monitor CBC/CMP, temperatures -aspiration precautions -Bcx x2 Thank you for consulting [facility]. Will continue to follow along with you. Discussed with RN. Subjective Allergies: Coded Allergies: No Known Allergies (Unverified , 06/11/17) afebrile >48hrs bacteremic no leukocytosis Objective Last 24 Hour Vital Signs Date Time Temp Pulse Resp B/P (MAP) Pulse Ox O2 Delivery O2 Flow Rate FiO2 04/27/20 12:26 15.0 04/27/20 12:25 Non-Rebreather 04/27/20 08:00 97.7 78 20 145/79 (101) 100 04/27/20 08:00 79 04/27/20 08:00 Non-Rebreather 04/27/20 08:00 15.0 04/27/20 07:55 100 Non-Rebreather 15.0 100 04/27/20 04:00 Non-Rebreather 04/27/20 04:00 97.7 67 20 145/79 (101) 100 04/27/20 04:00 68 04/27/20 04:00 15.0 04/27/20 00:00 97.4 72 20 149/76 (100) 100 04/27/20 00:00 15.0 04/27/20 00:00 Non-Rebreather 04/26/20 23:27 73 04/26/20 21:00 97.4 77 20 137/83 (101) 100 04/26/20 20:00 Non-Rebreather 04/26/20 20:00 15.0 04/26/20 19:36 100 Non-Rebreather 15.0 100 04/26/20 19:08 79 04/26/20 16:00 15.0 04/26/20 16:00 79 04/26/20 16:00 Non-Rebreather 04/26/20 16:00 97.5 81 20 142/69 (93) 100 04/26/20 13:22 100 Non-Rebreather 15.0 100 04/26/20 13:00 15.0 Height (Feet): 6 Height (Inches): 0.00 Weight (Pounds): 148 GENERAL: BiPAP in place, sleeping, not talking much. CARDIOVASCULAR: No murmur. LUNGS: Poor exchange. ABDOMEN: Bowel sounds distant. EXTREMITIES: No cyanosis, clubbing, or edema. Microbiology Date/Time Source Procedure Growth Status 04/26/20 06:00 Nasopharynx - Final Complete 04/26/20 06:00 Nasopharynx - Final Complete 04/25/20 22:30 Sputum Gram Stain - Final Resulted 04/25/20 22:30 Sputum Sputum Culture - Preliminary NORMAL UPPER RESPIRATORY ANA AT 24 ... Resulted 04/24/20 20:00 Rectum - Final NO CARBAPENEM-RESISTANT ENTEROBACTERI... Complete 04/24/20 20:00 Rectum VRE Culture - Final Enterococcus Faecium - Vre Complete 04/24/20 20:00 Nasal Nares MRSA Culture - Final NO METHICILLIN RESISTANT STAPH AUREUS... Complete 04/24/20 20:00 Nasopharynx SARS-CoV-2 RdRp Gene Assay - Final Complete 04/24/20 20:00 Blood Blood Culture - Preliminary Gram Positive Cocci Resulted Laboratory Tests Test 04/26/20 17:00 04/26/20 20:44 04/27/20 02:50 04/27/20 05:14 POC Whole Blood Glucose Pending 121 MG/DL (74-106) H 118 MG/DL (74-106) H White Blood Count 6.6 K/UL (4.8-10.8) Red Blood Count 3.14 M/UL (4.70-6.10) L Hemoglobin 9.7 G/DL (14.2-18.0) L Hematocrit 31.0 % (42.0-52.0) L Mean Corpuscular Volume 99 FL (80-99) Mean Corpuscular Hemoglobin 31.0 PG (27.0-31.0) Mean Corpuscular Hemoglobin Concent 31.4 G/DL (32.0-36.0) L Red Cell Distribution Width 13.9 % (11.6-14.8) Platelet Count 135 K/UL (150-450) L Mean Platelet Volume 7.1 FL (6.5-10.1) Neutrophils (%) (Auto) 81.1 % (45.0-75.0) H Lymphocytes (%) (Auto) 11.1 % (20.0-45.0) L Monocytes (%) (Auto) 4.2 % (1.0-10.0) Eosinophils (%) (Auto) 3.3 % (0.0-3.0) H Basophils (%) (Auto) 0.4 % (0.0-2.0) Erythrocyte Sedimentation Rate 82 MM/HR (0-20) H Sodium Level 154 MMOL/L (136-145) H Potassium Level 3.5 MMOL/L (3.5-5.1) Chloride Level 124 MMOL/L (98-107) H Carbon Dioxide Level 23 MMOL/L (21-32) Anion Gap 7 mmol/L (5-15) Blood Urea Nitrogen 32 mg/dL (7-18) H Creatinine 1.0 MG/DL (0.55-1.30) Estimat Glomerular Filtration Rate > 60 mL/min (>60) Glucose Level 130 MG/DL (74-106) H Uric Acid 4.2 MG/DL (2.6-7.2) Calcium Level 7.9 MG/DL (8.5-10.1) L Phosphorus Level 2.0 MG/DL (2.5-4.9) L Magnesium Level 2.1 MG/DL (1.8-2.4) Total Bilirubin 0.4 MG/DL (0.2-1.0) Aspartate Amino Transf (AST/SGOT) 26 U/L (15-37) Alanine Aminotransferase (ALT/SGPT) 19 U/L (12-78) Alkaline Phosphatase 101 U/L (46-116) C-Reactive Protein, Quantitative 19.3 mg/dL (0.00-0.90) H Total Protein 4.7 G/DL (6.4-8.2) L Albumin 1.5 G/DL (3.4-5.0) L Globulin 3.2 g/dL Albumin/Globulin Ratio 0.5 (1.0-2.7) L Test 04/27/20 12:05 Activated Partial Thromboplast Time 26 SEC (23-33) Current Medications Medications (Trade) Dose Ordered Sig/Lopez Route PRN Reason Start Time Stop Time Status Last Admin Dose Admin Acetaminophen (Tylenol) 650 mg Q4H PRN ORAL fever 04/25/20 00:00 05/25/20 00:00 Albuterol/ Ipratropium (Albuterol/ Ipratropium) 3 ml Q4H PRN HHN Shortness of Breath 04/25/20 00:00 04/30/20 00:00 Cefepime HCl 1 gm/ Dextrose 55 ml @ 110 mls/hr EVERY 12 HOURS IV 04/25/20 09:00 05/02/20 08:59 04/27/20 09:42 Dextrose 1,000 ml @ 150 mls/hr Q6H40M IV 04/25/20 10:30 05/25/20 10:29 04/27/20 09:44 Dextrose (Dextrose 50%) 25 ml Q30M PRN IV Hypoglycemia 04/25/20 00:00 07/24/20 00:00 Dextrose (Dextrose 50%) 50 ml Q30M PRN IV Hypoglycemia 04/25/20 00:00 07/24/20 00:00 Folic Acid (Folate) 3 mg DAILY ORAL 04/26/20 14:15 05/26/20 14:14 04/27/20 09:41 Heparin Sodium (Porcine) (Heparin 5000 units/ml) 5,000 units ONCE IV 04/27/20 12:00 04/27/20 13:15 Heparin Sodium/ Dextrose 500 ml @ 24.168 mls/ hr ADJUST PER PROTOCOL IV 04/27/20 12:00 05/27/20 11:59 Insulin Aspart (NovoLOG) BEFORE MEALS AND HS SUBQ 04/25/20 06:30 07/24/20 06:29 Lamotrigine (LaMICtal) 25 mg DAILY ORAL 04/25/20 09:00 05/25/20 08:59 04/27/20 09:42 Lorazepam (Ativan 2mg/ml 1ml) 0.5 mg Q4H PRN IV Agitation 04/25/20 01:00 05/02/20 00:59 Memantine (Namenda) 5 mg TWICE A DAY ORAL 04/25/20 09:00 05/25/20 08:59 04/27/20 09:42 Olanzapine (ZyPREXA) 5 mg DAILY ORAL 04/25/20 09:00 06/09/20 08:59 04/27/20 09:41 Ondansetron HCl (Zofran) 4 mg Q6H PRN IVP Nausea & Vomiting 04/25/20 00:00 05/25/20 00:00 Polyethylene Glycol (Miralax) 17 gm DAILYPRN PRN ORAL Constipation 04/25/20 00:00 05/25/20 00:00 Potassium Phosphate 250 ml @ 62.5 mls/hr Q4H IVPB 04/27/20 09:00 04/27/20 16:59 04/27/20 09:35 Quetiapine Fumarate (SEROqueL) 50 mg Q12HR ORAL 04/27/20 11:30 06/11/20 11:29 04/27/20 11:51 Temazepam (Restoril) 15 mg HSPRN PRN ORAL Insomnia 04/25/20 00:00 05/02/20 00:00 Vancomycin HCl (Vanco pharmacy to dose) 1 ea DAILY PRN MISC Per rx protocol 04/25/20 00:00 05/25/20 00:00 Vancomycin HCl 1.5 gm/Sodium Chloride 275 ml @ 137.5 mls/ hr Q24H IVPB 04/25/20 02:00 04/30/20 01:59 04/27/20 02:13 Babita Morales M.D. Apr 27, 2020 12:35
--- NOTE | 2020-04-27 13:00 | NUR ---
NURSE NOTES: patient sent to Ct chest stable.
--- NOTE | 2020-04-27 13:19 | General Progress Note ---
Subjective Constitutional: Reports: weakness Allergies: Coded Allergies: No Known Allergies (Unverified , 06/11/17) All Systems: reviewed and negative except above Subjective awaitng ct Objective Last 24 Hour Vital Signs Date Time Temp Pulse Resp B/P (MAP) Pulse Ox O2 Delivery O2 Flow Rate FiO2 04/27/20 12:41 108 04/27/20 12:34 97.9 77 20 179/59 (99) 100 04/27/20 12:26 15.0 04/27/20 12:25 Non-Rebreather 04/27/20 08:00 97.7 78 20 145/79 (101) 100 04/27/20 08:00 79 04/27/20 08:00 Non-Rebreather 04/27/20 08:00 15.0 04/27/20 07:55 100 Non-Rebreather 15.0 100 04/27/20 04:00 Non-Rebreather 04/27/20 04:00 97.7 67 20 145/79 (101) 100 04/27/20 04:00 68 04/27/20 04:00 15.0 04/27/20 00:00 97.4 72 20 149/76 (100) 100 04/27/20 00:00 15.0 04/27/20 00:00 Non-Rebreather 04/26/20 23:27 73 04/26/20 21:00 97.4 77 20 137/83 (101) 100 04/26/20 20:00 Non-Rebreather 04/26/20 20:00 15.0 04/26/20 19:36 100 Non-Rebreather 15.0 100 04/26/20 19:08 79 04/26/20 16:00 15.0 04/26/20 16:00 79 04/26/20 16:00 Non-Rebreather 04/26/20 16:00 97.5 81 20 142/69 (93) 100 04/26/20 13:22 100 Non-Rebreather 15.0 100 Intake and Output 04/26/20 04/27/20 19:00 07:00 Intake Total 430 ml 1784.0 ml Output Total 400 ml 400 ml Balance 30 ml 1384.0 ml Free Water 50 ml IV Total 430 ml 1334.0 ml Tube Feeding 400 ml Output Urine Total 400 ml 400 ml # Bowel Movements 2 Laboratory Tests 04/26/20 17:00: POC Whole Blood Glucose [Pending] 04/26/20 20:44: POC Whole Blood Glucose 121H 04/27/20 02:50: White Blood Count 6.6, Red Blood Count 3.14L, Hemoglobin 9.7L, Hematocrit 31.0L, Mean Corpuscular Volume 99, Mean Corpuscular Hemoglobin 31.0, Mean Corpuscular Hemoglobin Concent 31.4L, Red Cell Distribution Width 13.9, Platelet Count 135L, Mean Platelet Volume 7.1, Neutrophils (%) (Auto) 81.1H, Lymphocytes (%) (Auto) 11.1L, Monocytes (%) (Auto) 4.2, Eosinophils (%) (Auto) 3.3H, Basophils (%) (Auto) 0.4, Erythrocyte Sedimentation Rate 82H, Sodium Level 154H, Potassium Level 3.5, Chloride Level 124H, Carbon Dioxide Level 23, Anion Gap 7, Blood Urea Nitrogen 32H, Creatinine 1.0, Estimat Glomerular Filtration Rate > 60, Glucose Level 130H, Uric Acid 4.2, Calcium Level 7.9L, Phosphorus Level 2.0L, Magnesium Level 2.1, Total Bilirubin 0.4, Aspartate Amino Transf (AST/SGOT) 26, Alanine Aminotransferase (ALT/SGPT) 19, Alkaline Phosphatase 101, C-Reactive Protein, Quantitative 19.3H, Total Protein 4.7L, Albumin 1.5L, Globulin 3.2, Albumin/Globulin Ratio 0.5L 04/27/20 05:14: POC Whole Blood Glucose 118H 04/27/20 12:05: Activated Partial Thromboplast Time 26 Height (Feet): 6 Height (Inches): 0.00 Weight (Pounds): 148 General Appearance: lethargic EENT: normal ENT inspection Neck: normal alignment Cardiovascular: normal peripheral pulses, normal rate, regular rhythm Respiratory/Chest: chest wall non-tender, lungs clear, normal breath sounds Abdomen: normal bowel sounds, non tender, soft Extremities: normal inspection Edema: no edema noted Arm (L), no edema noted Arm (R), no edema noted Leg (L), no edema noted Leg (R), no edema noted Pedal (L), no edema noted Pedal (R), no edema noted Generalized Neurologic: motor weakness Skin: normal pigmentation, warm/dry Assessment/Plan Problem List: (1) UTI (urinary tract infection) ICD Codes: N39.0 - Urinary tract infection, site not specified SNOMED: 04683984 (2) CVA (cerebral vascular accident) ICD Codes: I63.9 - Cerebral infarction, unspecified SNOMED: 338199090 (3) KORY (acute kidney injury) ICD Codes: N17.9 - Acute kidney failure, unspecified SNOMED: 1033641, 24114495 (4) HTN (hypertension) ICD Codes: I10 - Essential (primary) hypertension SNOMED: 47664787 (5) Diabetes ICD Codes: E11.9 - Type 2 diabetes mellitus without complications SNOMED: 12116579 (6) Dehydration ICD Codes: E86.0 - Dehydration SNOMED: 92548780 (7) Hypernatremia ICD Codes: E87.0 - Hyperosmolality and hypernatremia SNOMED: 40483584 (8) Acute respiratory failure ICD Codes: J96.00 - Acute respiratory failure, unspecified whether with hypoxia or hypercapnia SNOMED: 78536332 Status: unchanged Assessment/Plan: o2 pulm tx abx pt diet cbc bmp am aru eval need picc line German Carlin DO Apr 27, 2020 13:19
[2020-04-27] MEDS: Heparin 25,000u/D5W 500ml 500 ML IV SCH (13:31)
--- NOTE | 2020-04-27 13:45 | NUR ---
NURSE NOTES: started on heparin drip as ordred And bolus. Ptt ordered timed at 1945.
--- NOTE | 2020-04-27 13:48 | Diagnostic Imaging Report ---
Indication: Bilateral lower extremity edema Technique: Grayscale and duplex images of the bilateral lower extremity veins Comparison: none Findings: On the right, occlusive thrombus is seen within the downstream common femoral vein, the femoral vein, popliteal vein as well as within multiple calf veins. On the left, occlusive thrombus is seen within the femoral vein and popliteal vein the common femoral vein and calf veins are patent. Impression: Positive for bilateral lower extremity deep venous thrombosis, as described Patient's nurse is already aware
--- NOTE | 2020-04-27 14:51 | Diagnostic Imaging Report ---
ndication: Shortness of breath Technique: IV administration nonionic contrast. Spiral acquisitions obtained from the lung bases to the lung apices. Multiplanar and 3-D reconstructions were generated. Total dose length product 231 mGycm. CTDIvol(s) 5, 46, C6 mGy. Dose reduction achieved using automated exposure control Comparison: none Findings: Filling defects are seen within multiple right upper lobe segmental branches within the main right lower lobe pulmonary artery, and extending into multiple branches. Smaller filling defects are seen a few in subsegmental left upper lobe and left lower lobe branches. The right pulmonary artery is dilated, measuring 3 cm in diameter. The left and main pulmonary arteries are ectatic but not frankly dilated. There is four-chamber cardiomegaly and left ventricular muscle hypertrophy. Cardiac anatomy is difficult to assess for right heart strain,; all of the right ventricle does appear somewhat prominent and right to left ventricle ratio is right around 50%. The ascending thoracic aorta is ectatic but not aneurysmal Subtle mosaic perfusion is seen in both lungs, particularly in the upper lobes. There is some atelectasis and possibly some consolidation at the left lung base, as well as some compressive atelectasis at the right lung base. There are small bilateral pleural effusions. No masses or nodules. There is a nasogastric tube. The esophagus is otherwise unremarkable. No mediastinal or hilar mass or adenopathy. The included thyroid is unremarkable. No axillary or chest wall mass or adenopathy. The included upper abdominal anatomy is unremarkable. Impression: Positive for bilateral pulmonary emboli Equivocal evidence of right heart strain; RV /LV ratio around 0.5 but is somewhat difficult to assess due to ventricular muscle hypertrophy Left basilar compressive atelectasis, pleural fluid, and possibly some consolidation Trace right pleural fluid Subtle mosaic perfusion pattern, nonspecific but probably represents very mild pulmonary edema Cardiomegaly Nasogastric tube The CT scanner at [facility] is accredited by the [employer] and the scans are performed using protocols designed to limit radiation exposure to as low as reasonably achievable to attain images of sufficient resolution adequate for diagnostic evaluation.
--- NOTE | 2020-04-27 16:00 | NUR ---
NURSE NOTES: Noted afib on monitor Dr Carlin and Dr Whitney aware.
[2020-04-27 16:16] VITALS: BP 145/59
--- NOTE | 2020-04-27 18:38 | NUR ---
NURSE NOTES: Ct chest result in Dr Downey made aware.
--- NOTE | 2020-04-27 19:20 | NUR ---
NURSE NOTES: Received report from [facility] M[facility]. Pt asleep in bed, afebrile, SOB on exertion noted. On NRB at 15lpm saturating at 100% and RR of 21bpm. With left NGT in place intact and patent running vital af at 20cc/hr with goal of 60cc/hr. Pt tolerating well without any residual. With Right hand 22 g and Left AC 20g IV lines intact, patent and asymptomatic. On heparin drip at 24.16ml/hr infusing well no sediments and no bleeding noted on the patient.With Contreras catheter to urine bag draining dakota yellow urine. Call light within reach. HOB elevated. Needs were attended. Bed rails are up and padded. bed wheels are locked. Continue plan of care Addendum: 04/27/20 at 2357 by KATELYNN Davis RN Addendum: On right wrist soft restraint. skin is intact, pulses are palpable. No paresthesia noted. continue to monitor the patient.
--- NOTE | 2020-04-27 19:21 | NUR ---
NURSE HAND-OFF REPORT: Important Events on Shift:y Patient Status: stable Diet:gt feeding Pending Orders:ptt Pending Results/Labs:no Pending notification:no Latest Vital Signs: Temperature 99.1 , Pulse 90 , B/P 145 /59 , Respiratory Rate 20 , O2 SAT 100 , Non-Rebreather, O2 Flow Rate 15.0 . Vital Sign Comment: stable EKG Rhythm: afib Rhythm change?: Y MD Notified?: Whitney -Dr. Tesfaye SAAVEDRA Response: Latest Andersen Fall Score: 50 Fall Risk: High Risk Safety Measures: Call light Within Reach, Bed Alarm Zone 2, Side Rails Side Rails x3, Bed position Low and Locked. Fall Precautions: Yellow Socks Yellow Gown Door Sign Patient Fall Education Report given to Ryan Coon.
[2020-04-27 20:00] VITALS: BP 123/74
--- NOTE | 2020-04-27 20:00 | NUR ---
NURSE NOTES: PTT is 73 Within therapeutic level per protocol. Continue same infusion rate per pharmacy [facility]. No bleeding noted to patient. Continue to monitor the patient
[2020-04-28] VITALS: BP 130/62
--- NOTE | 2020-04-28 | NUR ---
NURSE NOTES: Pt remained calm in bed, not pulling any devices, Skin is intact. Pulses are palpable. No paresthesia noted. Remove right soft wrist restraint. Continue to monitor the patient
[2020-04-28] MEDS: Vancomycin 1.5 GM in NS 275 ML IVPB SCH (01:15)
--- NOTE | 2020-04-28 03:09 | NUR ---
NURSE NOTES: Pt was given partial bed bath. gown and linen changed. Pt tolerated well during the process. When about to leave, pt tried to pull NRB mask. Held patient's right hand but strong to pull it towards his body. initiate right soft wrist restraint. Skin is intact. pulses are palpable. No paresthesia noted. AROM 4/5 strength. MD made aware. Continue to monitor the patient
[2020-04-28 04:00] VITALS: BP 144/65
--- NOTE | 2020-04-28 05:00 | NUR ---
NURSE NOTES: PTT 76 within therapeutic level per protocol. Continue same rate. No bleeding noted to patient. Continue to monitor. PTT charleen at 4am
[2020-04-28 05:08] LABS: BASOPHILS % (AUTO) 0.2 % (0.0-2.0); EOSINOPHILS % (AUTO) 7.2 % (0.0-3.0); HEMATOCRIT 27.4 % (42.0-52.0); HEMOGLOBIN 8.7 G/DL (14.2-18.0); MEAN CORPUSCULAR VOLUME 98 FL (80-99); MONOCYTES % (AUTO) 5.7 % (1.0-10.0); NEUTROPHILS % (AUTO) 70.9 % (45.0-75.0); PLATELET COUNT 116 K/UL (150-450); RED BLOOD COUNT 2.81 M/UL (4.70-6.10); RED CELL DISTRIBUTION WIDTH 13.8 % (11.6-14.8); WHITE BLOOD COUNT 6.8 K/UL (4.8-10.8)
[2020-04-28 06:09] LABS: ALANINE AMINOTRANSFERASE 17 U/L (12-78); ALBUMIN 1.3 G/DL (3.4-5.0); ALBUMIN/GLOBULIN RATIO 0.4 (1.0-2.7); ALKALINE PHOSPHATASE 85 U/L (46-116); ANION GAP 7 mmol/L (5-15); ASPARTATE AMINO TRANSFERASE 22 U/L (15-37); BILIRUBIN,TOTAL 0.3 MG/DL (0.2-1.0); BLOOD UREA NITROGEN 30 mg/dL (7-18); CALCIUM 7.1 MG/DL (8.5-10.1); CARBON DIOXIDE 22 MMOL/L (21-32); CHLORIDE 121 MMOL/L (98-107); POTASSIUM 3.4 MMOL/L (3.5-5.1); SODIUM 150 MMOL/L (136-145)
[2020-04-28] MEDS: NovoLOG Insulin Flexpen SUBQ SCH ×4 (06:22→21:00)
[2020-04-28 06:36] LABS: PHOSPHORUS 2.5 MG/DL (2.5-4.9)
--- NOTE | 2020-04-28 07:27 | Psychiatry Consultation ---
Psychiatry Consultation Psychiatry Consultation Chief Complaint: Dyspnea/Respdistress History of Present Illness: 80-year-old male patient with respiratory insufficiency because of his respi ratory problems his Cognition has declined below his baseline and he is confused and disorganized with altered mental status that is why there is a daily psychiatric consultation requested to try to improve this patient's cognition or at least to prevent any further decline in his cognition Mental status examination: 80-year-old male appearance is disheveled agitated irritable agitated affect guarded restricted intellect poor mood depressed anxious motor activity psychomotor agitation attention is poor orientation x2 speech is nonsensical thought process disorganized logical insight judgment is poor Allergies: Coded Allergies: No Known Allergies (Unverified , 06/11/17) Medication History Scheduled Amino Acids/Protein Hydrolys (Pro-Stat Liquid), 30 ML ORAL DAILY, (Reported) Aspirin (Aspirin EC), 81 MG ORAL DAILY, (Reported) Docusate Sodium* (Colace*), 100 MG ORAL DAILY, (Reported) Folic Acid* (Folic Acid*), 1 MG ORAL DAILY, (Reported) Heparin Sod (Porcine) (Heparin Sodium*), 5,000 UNITS SUBQ DAILY, (Reported) Lamotrigine* (Lamictal*), 25 MG ORAL DAILY, (Reported) Lisinopril (Lisinopril*), 20 MG ORAL BID, (Reported) Memantine Hcl* (Namenda*), 5 MG ORAL TWICE A DAY, (Reported) Multivitamin With Minerals (Multivitamins With Minerals*), 1 TAB ORAL DAILY, (Reported) Olanzapine* (Zyprexa*), 5 MG ORAL DAILY, (Reported) Sennosides (Senna), 2 TAB PO BEDTIME, (Reported) Scheduled PRN Acetaminophen* (Acetaminophen 325MG Tablet*), 650 MG ORAL Q4H PRN for Fever/Headache/Mild Pain, (Reported) Bisacodyl (Dulcolax), 10 MG RC for Constipation, (Reported) Hydralazine Hcl* (Hydralazine Hcl*), 10 MG ORAL Q4HR PRN for SBP > 160 , (Reported) Ipratropium/Albuterol Sulfate (DuoNeb 0.5-3(2.5)mg/3ml), 1 UNIT HHN EVERY 6 HOURS PRN for Shortness of Breath, (Reported) Magnesium Hydroxide* (Milk Of Magnesia*), 30 ML ORAL EVERY 6 HOURS PRN for Constipation, (Reported) Na Phos,M-B/Na Phos,Di-Ba* (Fleet Enema*), 133 ML RECTAL DAILY PRN for Constipation, (Reported) Nitroglycerin 0.4MG table* (Nitroglycerin*), 0.4 MG SL .Q5MIN X 3 DOSES PRN for CHEST PAIN, (Reported) Miscellaneous Medications Insulin Lispro (Humalog), 0 SUBQ, (Reported) Discontinued Medications Ascorbic Acid* (Vitamin C*), 500 MG ORAL DAILY, (Reported) Discontinued Reason: Pt stopped taking med Benazepril Hcl* (Lotensin*), 20 MG ORAL BID, (Reported) Discontinued Reason: Pt stopped taking med Calcium Carbonate/Vitamin D3 (Calcium 500 + Vit D 200 Tablet), 1 EACH PO BID, (Reported) Discontinued Reason: Pt stopped taking med Cranberry Extract (Cranberry), 425 MG PO, (Reported) Discontinued Reason: Pt stopped taking med Escitalopram Oxalate* (Lexapro*), 10 MG ORAL DAILY, (Reported) Discontinued Reason: Pt stopped taking med Folic Acid/Vitamin B Comp W-C (Sarah-Ruben Tablet), 0.8 MG PO DAILY, (Reported) Discontinued Reason: Pt stopped taking med Insulin Aspart* (Novolog*), 0 SUBQ BEFORE MEALS AND HS, (Reported) Discontinued Reason: Pt stopped taking med Lamotrigine* (Lamictal*), 25 MG ORAL DAILY, (Reported) Discontinued Reason: Pt stopped taking med Levofloxacin* (Levaquin*), 750 MG ORAL DAILY, (Reported) Discontinued Reason: Pt stopped taking med Lisinopril* (Lisinopril*), 20 MG ORAL DAILY, (Reported) Discontinued Reason: Prescription changed Lorazepam* (Ativan*), 0.5 MG ORAL EVERY 6 HOURS, (Reported) Discontinued Reason: Pt stopped taking med Memantine Hcl* (Namenda*), 5 MG ORAL DAILY, (Reported) Discontinued Reason: Pt stopped taking med Olanzapine* (Zyprexa*), 5 MG ORAL HS, (Reported) Discontinued Reason: Pt stopped taking med Temazepam* (Restoril*), 15 MG ORAL BEDTIME PRN for Insomnia, (Reported) Discontinued Reason: Pt stopped taking med Vitamin B Cmplx/Vit C/Folic AC (Nephro-Ruben Tablet), 1 TAB ORAL DAILY, (Reported) Discontinued Reason: Pt stopped taking med Objective Data Height (Feet): 6 Height (Inches): 0.00 Weight (Pounds): 148 Assessment/Plan Assessment/Plan: Continue the patient on Lamictal, Zyprexa, Ativan and Namenda. 20min of insight oriented psychotherapy to help him recognize his psychical and cogintive deficits so that he has less depression and better impulse control. 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
--- NOTE | 2020-04-28 07:30 | NUR ---
NURSE HAND-OFF REPORT: Important Events on Shift: stable Patient Status:stable no bleeding Diet: vital af at 60cc/hr Pending Orders: n Pending Results/Labs:n Pending notification:n Latest Vital Signs: Temperature 97.7 , Pulse 79 , B/P 144 /65 , Respiratory Rate 20 , O2 SAT 100 , Non-Rebreather, O2 Flow Rate 15.0 . Vital Sign Comment: n EKG Rhythm: Sinus Rhythm Rhythm change?: N MD Notified?: Whitney Calrin MD Response: Latest Andersen Fall Score: 50 Fall Risk: High Risk Safety Measures: Call light Within Reach, Bed Alarm Zone 2, Side Rails Side Rails x3, Bed position Low and Locked. Fall Precautions: Yellow Socks Yellow Gown Door Sign Patient Fall Education Report given to Shaggy Wells.
--- NOTE | 2020-04-28 07:35 | NUR ---
NURSE NOTES: Received patient from [facility] Bermudez under the care of Dr. Carlin for the admitting dx. of respiratory failure and hypoxia. Patient NKA, full code noted. On isolation for hx. of MRSA nares. Patient is alert and oriented x 1-2 non verbal. Patient is tolerating non-rebreather mask well, with no sign of distress noted. Will continue to monitor.
[2020-04-28 08:00] VITALS: BP 138/60
[2020-04-28] MEDS: Cefepime HCl 1 GM in D5W 55 ML IV SCH ×2 (09:04→21:01)
--- NOTE | 2020-04-28 09:04 | NUR ---
RD ASSESSMENT & RECOMMENDATIONS SEE CARE ACTIVITY FOR COMPLETE ASSESSMENT DAILY ESTIMATED NEEDS: Needs based on DM, Cardiac (67.3kg) 25-35 kcals/kg 3144-7462 total kcals 1.25-1.5 g protein/kg 84-101 g total protein 25-30 mL/kg 0192-4065 total fluid mLs NUTRITION DIAGNOSIS: Difficulty chewing/swallowing r/t dysphagia s/p CVA as evidenced by pt NPO, now on NGT feeds. CURRENT TF: Vital 1.2 @60ml/hr ENTERAL NUTRITION RECOMMENDATIONS: Lower Vital 1.2 to goal of 50ml/hr x24 hrs to provide 1200ml, 1440 kcal, 90g pro, 973ml free H2O - Rec to lower Tf to goal of 50ml/hr (total of 1440 kcal) while on D5 @150ml/hr (additional 612 kcal) to not exceed kcal needs. - Flush per MD, HOB over 30 degrees. * Reevaluate TF w/ lowering or DC of additional D5 * ADDITIONAL RECOMMENDATIONS: 1) Maintain calibrated bed scale wts 2) Skin integrity: skin intact per RN 3) Replete lytes as needed (Low K, 3.4) 4) F/up w/ shine worker eval- now on NGT feeds 5) Monitor BG and PO intake, need for carb control diet-> now on NGT feeds. .
[2020-04-28] MEDS: Memantine 10mg tab ORAL SCH ×2 (09:05→18:00)
--- NOTE | 2020-04-28 09:23 | General Progress Note ---
Subjective Constitutional: Reports: weakness Respiratory: Reports: shortness of breath Allergies: Coded Allergies: No Known Allergies (Unverified , 06/11/17) All Systems: reviewed and negative except above Subjective o2 mask calm Objective Last 24 Hour Vital Signs Date Time Temp Pulse Resp B/P (MAP) Pulse Ox O2 Delivery O2 Flow Rate FiO2 04/28/20 04:00 97.7 79 20 144/65 (91) 100 04/28/20 04:00 15.0 04/28/20 04:00 Non-Rebreather 04/28/20 03:27 69 04/28/20 00:00 Non-Rebreather 04/28/20 00:00 98.4 81 20 130/62 (84) 100 04/27/20 23:30 78 04/27/20 20:00 98.4 78 20 123/74 (90) 100 04/27/20 20:00 15.0 04/27/20 20:00 Non-Rebreather 04/27/20 19:21 84 04/27/20 19:05 100 Non-Rebreather 15.0 100 04/27/20 16:16 99.1 90 20 145/59 (87) 100 04/27/20 16:04 87 04/27/20 16:00 15.0 04/27/20 16:00 Non-Rebreather 04/27/20 12:41 108 04/27/20 12:34 97.9 77 20 179/59 (99) 100 04/27/20 12:26 15.0 04/27/20 12:25 Non-Rebreather Intake and Output 04/27/20 04/28/20 19:00 07:00 Intake Total 1891.020 ml 2613.848 ml Output Total 400 ml 600 ml Balance 1491.020 ml 2013.848 ml Free Water 460 ml 100 ml IV Total 951.020 ml 1793.848 ml Tube Feeding 480 ml 720 ml Output Urine Total 400 ml 600 ml # Bowel Movements 1 1 Laboratory Tests 04/27/20 12:05: Activated Partial Thromboplast Time 26 04/27/20 16:56: POC Whole Blood Glucose 135H 04/27/20 20:25: Activated Partial Thromboplast Time 73H 04/27/20 20:34: POC Whole Blood Glucose 129H 04/28/20 01:00: Vancomycin Level Trough 13.8H 04/28/20 04:00: White Blood Count 6.8, Red Blood Count 2.81L, Hemoglobin 8.7L, Hematocrit 27.4L, Mean Corpuscular Volume 98, Mean Corpuscular Hemoglobin 31.0, Mean Corpuscular Hemoglobin Concent 31.8L, Red Cell Distribution Width 13.8, Platelet Count 116L, Mean Platelet Volume 6.5, Neutrophils (%) (Auto) 70.9, Lymphocytes (%) (Auto) 16.0L, Monocytes (%) (Auto) 5.7, Eosinophils (%) (Auto) 7.2H, Basophils (%) (Auto) 0.2, Erythrocyte Sedimentation Rate 90H, Activated Partial Thromboplast Time 76H, Stool Occult Blood [Pending], Sodium Level 150H, Potassium Level 3.4L, Chloride Level 121H, Carbon Dioxide Level 22, Anion Gap 7, Blood Urea Nitrogen 30H, Creatinine 1.0, Estimat Glomerular Filtration Rate > 60, Glucose Level 156H , Uric Acid 3.4, Calcium Level 7.1L, Phosphorus Level 2.5, Magnesium Level 2.0, Total Bilirubin 0.3, Aspartate Amino Transf (AST/SGOT) 22, Alanine Aminotransferase (ALT/SGPT) 17, Alkaline Phosphatase 85, C-Reactive Protein, Quantitative 18.2H, Total Protein 4.2L, Albumin 1.3L, Globulin 2.9, Albumin/Globulin Ratio 0.4L, Hepatitis A IgM Antibody [Pending], Hepatitis B Surface Antigen [Pending], Hepatitis B Core IgM Antibody [Pending], Hepatitis C Antibody [Pending], HIV (1&2) Antibody Rapid Negative 04/28/20 05:57: POC Whole Blood Glucose [Pending] 04/28/20 06:01: POC Whole Blood Glucose 145H Height (Feet): 6 Height (Inches): 0.00 Weight (Pounds): 148 General Appearance: lethargic EENT: normal ENT inspection Neck: normal alignment Cardiovascular: normal peripheral pulses, normal rate, regular rhythm Respiratory/Chest: chest wall non-tender, lungs clear, normal breath sounds Abdomen: normal bowel sounds, non tender, soft Extremities: normal inspection Edema: no edema noted Arm (L), no edema noted Arm (R), no edema noted Leg (L), no edema noted Leg (R), no edema noted Pedal (L), no edema noted Pedal (R), no edema noted Generalized Neurologic: motor weakness Skin: normal pigmentation, warm/dry Assessment/Plan Problem List: (1) UTI (urinary tract infection) ICD Codes: N39.0 - Urinary tract infection, site not specified SNOMED: 24088983 (2) CVA (cerebral vascular accident) ICD Codes: I63.9 - Cerebral infarction, unspecified SNOMED: 287386488 (3) KORY (acute kidney injury) ICD Codes: N17.9 - Acute kidney failure, unspecified SNOMED: 5541789, 19200694 (4) HTN (hypertension) ICD Codes: I10 - Essential (primary) hypertension SNOMED: 73538823 (5) Diabetes ICD Codes: E11.9 - Type 2 diabetes mellitus without complications SNOMED: 27766029 (6) Dehydration ICD Codes: E86.0 - Dehydration SNOMED: 73682220 (7) Hypernatremia ICD Codes: E87.0 - Hyperosmolality and hypernatremia SNOMED: 36731951 (8) Acute respiratory failure ICD Codes: J96.00 - Acute respiratory failure, unspecified whether with hypoxia or hypercapnia SNOMED: 42751320 Status: unchanged Assessment/Plan: o2 pulm tx abx pt diet cbc bmp am ltach German Villanueva DO Apr 28, 2020 09:23
--- NOTE | 2020-04-28 09:46 | Nephrology Progress Note ---
Assessment/Plan Problem List: (1) KORY (acute kidney injury) (2) Hypernatremia (3) Dehydration (4) Acute respiratory failure Assessment Patient presents with acute hypoxic respiratory failure requiring BiPAP Sepsis lactic acidosis KORY Dehydration, hypernatremia History of COPD Anemia Low BMI, malnutrition. BMI of 20.1 History of CVA History of diabetes mellitus Plan April 28: Continue D5W. Abnormal electrolytes addressed. Continue per consultants. Remains full code. Remains on nonrebreather mask. April 27: Continue D5W. Continue pulmonary support. Monitor renal parameters and electrolytes. Continue per consultants. Patient full code. Remains on nonrebreathing mask. Contreras catheter IV D5W Monitor electrolytes and renal parameters Antibiotics Avoid nephrotoxic's 2D echocardiogram Per orders Subjective ROS Limited/Unobtainable: Yes Objective Objective Last 24 Hour Vital Signs Date Time Temp Pulse Resp B/P (MAP) Pulse Ox O2 Delivery O2 Flow Rate FiO2 04/28/20 08:00 Non-Rebreather 04/28/20 08:00 15.0 04/28/20 04:00 97.7 79 20 144/65 (91) 100 04/28/20 04:00 15.0 04/28/20 04:00 Non-Rebreather 04/28/20 03:27 69 04/28/20 00:00 Non-Rebreather 04/28/20 00:00 98.4 81 20 130/62 (84) 100 04/27/20 23:30 78 04/27/20 20:00 98.4 78 20 123/74 (90) 100 04/27/20 20:00 15.0 04/27/20 20:00 Non-Rebreather 04/27/20 19:21 84 04/27/20 19:05 100 Non-Rebreather 15.0 100 04/27/20 16:16 99.1 90 20 145/59 (87) 100 04/27/20 16:04 87 04/27/20 16:00 15.0 04/27/20 16:00 Non-Rebreather 04/27/20 12:41 108 04/27/20 12:34 97.9 77 20 179/59 (99) 100 04/27/20 12:26 15.0 04/27/20 12:25 Non-Rebreather Intake and Output 04/27/20 04/28/20 19:00 07:00 Intake Total 1891.020 ml 2613.848 ml Output Total 400 ml 600 ml Balance 1491.020 ml 2013.848 ml Free Water 460 ml 100 ml IV Total 951.020 ml 1793.848 ml Tube Feeding 480 ml 720 ml Output Urine Total 400 ml 600 ml # Bowel Movements 1 1 Laboratory Tests 04/27/20 12:05: Activated Partial Thromboplast Time 26 04/27/20 16:56: POC Whole Blood Glucose 135H 04/27/20 20:25: Activated Partial Thromboplast Time 73H 04/27/20 20:34: POC Whole Blood Glucose 129H 04/28/20 01:00: Vancomycin Level Trough 13.8H 04/28/20 04:00: White Blood Count 6.8, Red Blood Count 2.81L, Hemoglobin 8.7L, Hematocrit 27.4L, Mean Corpuscular Volume 98, Mean Corpuscular Hemoglobin 31.0, Mean Corpuscular Hemoglobin Concent 31.8L, Red Cell Distribution Width 13.8, Platelet Count 116L, Mean Platelet Volume 6.5, Neutrophils (%) (Auto) 70.9, Lymphocytes (%) (Auto) 16.0L, Monocytes (%) (Auto) 5.7, Eosinophils (%) (Auto) 7.2H, Basophils (%) (Auto) 0.2, Erythrocyte Sedimentation Rate 90H, Activated Partial Thromboplast Time 76H, Stool Occult Blood Negative, Sodium Level 150H, Potassium Level 3.4L, Chloride Level 121H, Carbon Dioxide Level 22, Anion Gap 7, Blood Urea Nitrogen 30H, Creatinine 1.0, Estimat Glomerular Filtration Rate > 60, Glucose Level 156H , Uric Acid 3.4, Calcium Level 7.1L, Phosphorus Level 2.5, Magnesium Level 2.0, Total Bilirubin 0.3, Aspartate Amino Transf (AST/SGOT) 22, Alanine Aminotransferase (ALT/SGPT) 17, Alkaline Phosphatase 85, C-Reactive Protein, Quantitative 18.2H, Total Protein 4.2L, Albumin 1.3L, Globulin 2.9, Albumin/Globulin Ratio 0.4L, Hepatitis A IgM Antibody [Pending], Hepatitis B Surface Antigen [Pending], Hepatitis B Core IgM Antibody [Pending], Hepatitis C Antibody [Pending], HIV (1&2) Antibody Rapid Negative 04/28/20 05:57: POC Whole Blood Glucose [Pending] 04/28/20 06:01: POC Whole Blood Glucose 145H Height (Feet): 6 Height (Inches): 0.00 Weight (Pounds): 148 General Appearance: no apparent distress EENT: other - On nonrebreather mask Cardiovascular: bradycardia Respiratory/Chest: decreased breath sounds Abdomen: distended Maximino Castillo MD Apr 28, 2020 09:46
--- NOTE | 2020-04-28 10:02 | Infectious Diseases Prog Note ---
Assessment/Plan Assessment: Sepsis UTI -u/a wbc 50-60, nit neg, leuk +1; ucx NTD Gram positive bacteremia- real vs contaminant -04/24 sp cx 1/2 GPC in clusters; 04/26 Bcx p Fever; SP No leukocytosis -04/26 influenza screen neg CXR: Borderline cardiomegaly. No acute process -04/24 CXR: No acute cardiopulmonary disease. covid rapid PCR neg Acute hypoxic resp failure- SP NRB>Bipap> VM B/l DVT and PE -CTA chest: Positive for bilateral pulmonary emboli Equivocal evidence of right heart strain; RV /LV ratio around 0.5 but is somewhat difficult to assess due to ventricular muscle hypertrophy. Left basilar compressive atelectasis, pleural fluid, and possibly some consolidation. Trace right pleural fluid. Subtle mosaic perfusion pattern, nonspecific but probably represents very mild pulmonary edema. Cardiomegaly. Nasogastric tube -V. duplex: : On the right, occlusive thrombus is seen within the downstream common femoral vein, the femoral vein, popliteal vein as well as within multiple calf veins. On the left, occlusive thrombus is seen within the femoral vein and popliteal vein the common femoral vein and calf veins are patent. 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 Will continue to follow along with you. Discussed with RN. Subjective Allergies: Coded Allergies: No Known Allergies (Unverified , 06/11/17) afebrile >72hrs no leukocytosis bl DVT repeat Bcx Objective Last 24 Hour Vital Signs Date Time Temp Pulse Resp B/P (MAP) Pulse Ox O2 Delivery O2 Flow Rate FiO2 04/28/20 08:00 Non-Rebreather 04/28/20 08:00 15.0 04/28/20 04:00 97.7 79 20 144/65 (91) 100 04/28/20 04:00 15.0 04/28/20 04:00 Non-Rebreather 04/28/20 03:27 69 04/28/20 00:00 Non-Rebreather 04/28/20 00:00 98.4 81 20 130/62 (84) 100 04/27/20 23:30 78 04/27/20 20:00 98.4 78 20 123/74 (90) 100 04/27/20 20:00 15.0 04/27/20 20:00 Non-Rebreather 04/27/20 19:21 84 04/27/20 19:05 100 Non-Rebreather 15.0 100 04/27/20 16:16 99.1 90 20 145/59 (87) 100 04/27/20 16:04 87 04/27/20 16:00 15.0 04/27/20 16:00 Non-Rebreather 04/27/20 12:41 108 04/27/20 12:34 97.9 77 20 179/59 (99) 100 04/27/20 12:26 15.0 04/27/20 12:25 Non-Rebreather Height (Feet): 6 Height (Inches): 0.00 Weight (Pounds): 148 GENERAL: BiPAP in place, sleeping, not talking much. CARDIOVASCULAR: No murmur. LUNGS: Poor exchange. ABDOMEN: Bowel sounds distant. EXTREMITIES: No cyanosis, clubbing, or edema. Microbiology Date/Time Source Procedure Growth Status 04/26/20 06:00 Nasopharynx - Final Complete 04/26/20 06:00 Nasopharynx - Final Complete 04/25/20 22:30 Indwelling Cath Urine Culture - Preliminary NO GROWTH AFTER 24 HOURS Resulted 04/25/20 22:30 Sputum Gram Stain - Final Resulted 04/25/20 22:30 Sputum Culture - Preliminary YEAST Usual Respiratory Clare Resulted Laboratory Tests Test 04/27/20 12:05 04/27/20 16:56 04/27/20 20:25 04/27/20 20:34 Activated Partial Thromboplast Time 26 SEC (23-33) 73 SEC (23-33) H POC Whole Blood Glucose 135 MG/DL (74-106) H 129 MG/DL (74-106) H Test 04/28/20 01:00 04/28/20 04:00 04/28/20 05:57 04/28/20 06:01 Vancomycin Level Trough 13.8 ug/mL (5.0-12.0) H White Blood Count 6.8 K/UL (4.8-10.8) Red Blood Count 2.81 M/UL (4.70-6.10) L Hemoglobin 8.7 G/DL (14.2-18.0) L Hematocrit 27.4 % (42.0-52.0) L Mean Corpuscular Volume 98 FL (80-99) Mean Corpuscular Hemoglobin 31.0 PG (27.0-31.0) Mean Corpuscular Hemoglobin Concent 31.8 G/DL (32.0-36.0) L Red Cell Distribution Width 13.8 % (11.6-14.8) Platelet Count 116 K/UL (150-450) L Mean Platelet Volume 6.5 FL (6.5-10.1) Neutrophils (%) (Auto) 70.9 % (45.0-75.0) Lymphocytes (%) (Auto) 16.0 % (20.0-45.0) L Monocytes (%) (Auto) 5.7 % (1.0-10.0) Eosinophils (%) (Auto) 7.2 % (0.0-3.0) H Basophils (%) (Auto) 0.2 % (0.0-2.0) Erythrocyte Sedimentation Rate 90 MM/HR (0-20) H Activated Partial Thromboplast Time 76 SEC (23-33) H Stool Occult Blood Negative (NEGATIVE) Sodium Level 150 MMOL/L (136-145) H Potassium Level 3.4 MMOL/L (3.5-5.1) L Chloride Level 121 MMOL/L (98-107) H Carbon Dioxide Level 22 MMOL/L (21-32) Anion Gap 7 mmol/L (5-15) Blood Urea Nitrogen 30 mg/dL (7-18) H Creatinine 1.0 MG/DL (0.55-1.30) Estimat Glomerular Filtration Rate > 60 mL/min (>60) Glucose Level 156 MG/DL (74-106) H Uric Acid 3.4 MG/DL (2.6-7.2) Calcium Level 7.1 MG/DL (8.5-10.1) L Phosphorus Level 2.5 MG/DL (2.5-4.9) Magnesium Level 2.0 MG/DL (1.8-2.4) Total Bilirubin 0.3 MG/DL (0.2-1.0) Aspartate Amino Transf (AST/SGOT) 22 U/L (15-37) Alanine Aminotransferase (ALT/SGPT) 17 U/L (12-78) Alkaline Phosphatase 85 U/L (46-116) C-Reactive Protein, Quantitative 18.2 mg/dL (0.00-0.90) H Total Protein 4.2 G/DL (6.4-8.2) L Albumin 1.3 G/DL (3.4-5.0) L Globulin 2.9 g/dL Albumin/Globulin Ratio 0.4 (1.0-2.7) L Hepatitis A IgM Antibody Pending Hepatitis B Surface Antigen Pending Hepatitis B Core IgM Antibody Pending Hepatitis C Antibody Pending HIV (1&2) Antibody Rapid Negative (NEGATIVE) POC Whole Blood Glucose Pending 145 MG/DL (74-106) H Current Medications Medications (Trade) Dose Ordered Sig/Lopez Route PRN Reason Start Time Stop Time Status Last Admin Dose Admin Acetaminophen (Tylenol) 650 mg Q4H PRN ORAL fever 04/25/20 00:00 05/25/20 00:00 Albuterol/ Ipratropium (Albuterol/ Ipratropium) 3 ml Q4H PRN HHN Shortness of Breath 04/25/20 00:00 04/30/20 00:00 Cefepime HCl 1 gm/ Dextrose 55 ml @ 110 mls/hr EVERY 12 HOURS IV 04/25/20 09:00 05/02/20 08:59 04/28/20 09:04 Dextrose 1,000 ml @ 150 mls/hr Q6H40M IV 04/25/20 10:30 05/25/20 10:29 04/28/20 05:39 Dextrose (Dextrose 50%) 25 ml Q30M PRN IV Hypoglycemia 04/25/20 00:00 07/24/20 00:00 Dextrose (Dextrose 50%) 50 ml Q30M PRN IV Hypoglycemia 04/25/20 00:00 07/24/20 00:00 Folic Acid (Folate) 3 mg DAILY ORAL 04/26/20 14:15 05/26/20 14:14 04/28/20 09:06 Heparin Sodium/ Dextrose 500 ml @ 24.168 mls/ hr ADJUST PER PROTOCOL IV 04/27/20 12:00 05/27/20 11:59 04/27/20 13:31 Insulin Aspart (NovoLOG) BEFORE MEALS AND HS SUBQ 04/25/20 06:30 07/24/20 06:29 04/28/20 06:22 Lamotrigine (LaMICtal) 25 mg DAILY ORAL 04/25/20 09:00 05/25/20 08:59 04/28/20 09:06 Lorazepam (Ativan 2mg/ml 1ml) 0.5 mg Q4H PRN IV Agitation 04/25/20 01:00 05/02/20 00:59 Memantine (Namenda) 5 mg TWICE A DAY ORAL 04/25/20 09:00 05/25/20 08:59 04/28/20 09:05 Olanzapine (ZyPREXA) 5 mg DAILY ORAL 04/25/20 09:00 06/09/20 08:59 04/28/20 09:06 Ondansetron HCl (Zofran) 4 mg Q6H PRN IVP Nausea & Vomiting 04/25/20 00:00 05/25/20 00:00 Polyethylene Glycol (Miralax) 17 gm DAILYPRN PRN ORAL Constipation 04/25/20 00:00 05/25/20 00:00 Potassium Chloride 100 ml @ 100 mls/hr Q1H IVPB 04/28/20 08:00 04/28/20 09:59 Quetiapine Fumarate (SEROqueL) 50 mg Q12HR ORAL 04/27/20 11:30 06/11/20 11:29 04/28/20 09:06 Temazepam (Restoril) 15 mg HSPRN PRN ORAL Insomnia 04/25/20 00:00 05/02/20 00:00 Vancomycin HCl (Vanco pharmacy to dose) 1 ea DAILY PRN MISC Per rx protocol 04/25/20 00:00 05/25/20 00:00 Vancomycin HCl 750 mg/Sodium Chloride 275 ml @ 183.333 mls/hr Q12H IVPB 04/28/20 14:00 05/03/20 13:59 Babita Morales M.D. Apr 28, 2020 10:02
--- NOTE | 2020-04-28 10:50 | Pulmonolgy Critical Care Note ---
Critical Care - Asmt/Plan Problems: (1) Acute respiratory failure (2) Acute massive pulmonary embolism (3) Acute deep vein thrombosis (DVT) (4) ATN (acute tubular necrosis) (5) Acute encephalopathy (6) UTI (urinary tract infection) (7) Protein-calorie malnutrition, severe (8) Diabetes (9) HTN (hypertension) (10) CVA (cerebral vascular accident) Respiratory: monitor respiratory rate, adjust FIO2 Cardiac: continue to monitor HR/BP Infectious Disease: check cultures, continue antibiotics Gastrointestinal: continue feedings/current rate Endocrine: monitor blood sugar Hematologic: monitor H/H, transfuse if hgb<8.5 Neurologic: PRN Ativan, keep patient comfortable Prophylaxis: Heparin Time Spent (Minutes): 40 Notes Reviewed: 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 with: nurses, consultants, rn case manager hospiceoperations research group manager - Objective Last 24 Hour Vital Signs Date Time Temp Pulse Resp B/P (MAP) Pulse Ox O2 Delivery O2 Flow Rate FiO2 04/28/20 08:00 Non-Rebreather 04/28/20 08:00 15.0 04/28/20 04:00 97.7 79 20 144/65 (91) 100 04/28/20 04:00 15.0 04/28/20 04:00 Non-Rebreather 04/28/20 03:27 69 04/28/20 00:00 Non-Rebreather 04/28/20 00:00 98.4 81 20 130/62 (84) 100 04/27/20 23:30 78 04/27/20 20:00 98.4 78 20 123/74 (90) 100 04/27/20 20:00 15.0 04/27/20 20:00 Non-Rebreather 04/27/20 19:21 84 04/27/20 19:05 100 Non-Rebreather 15.0 100 04/27/20 16:16 99.1 90 20 145/59 (87) 100 04/27/20 16:04 87 04/27/20 16:00 15.0 04/27/20 16:00 Non-Rebreather 04/27/20 12:41 108 04/27/20 12:34 97.9 77 20 179/59 (99) 100 04/27/20 12:26 15.0 04/27/20 12:25 Non-Rebreather Status: sedated Condition: critical HEENT: atraumatic Lungs: clear Heart: HR/BP stable Abdomen: soft, non-tender Extremities: no C/C/E Micro: Microbiology Date/Time Source Procedure Growth Status 04/26/20 06:00 Nasopharynx - Final Complete 04/26/20 06:00 Nasopharynx - Final Complete 04/25/20 22:30 Indwelling Cath Urine Culture - Preliminary NO GROWTH AFTER 24 HOURS Resulted 04/25/20 22:30 Sputum Gram Stain - Final Resulted 04/25/20 22:30 Sputum Culture - Preliminary YEAST Usual Respiratory Clare Resulted Accucheck: 145 Critical Care - Subjective ROS Limited/Unobtainable: Yes Interval Events: CT angio showed extensive PE Condition: critical FI02: 100 Vent Support Breath Rate: 18 Vent Support Mode: BiLevel Sputum Amount: None Tube Feeding Amount: 60 I&O: Intake and Output 04/27/20 04/28/20 19:00 07:00 Intake Total 1891.020 ml 2613.848 ml Output Total 400 ml 600 ml Balance 1491.020 ml 2013.848 ml Free Water 460 ml 100 ml IV Total 951.020 ml 1793.848 ml Tube Feeding 480 ml 720 ml Output Urine Total 400 ml 600 ml # Bowel Movements 1 1 CXR: Filling defects are seen within multiple right upper lobe segmental branches within the main right lower lobe pulmonary artery, and extending into multiple branches. Labs: Laboratory Tests Test 04/27/20 12:05 04/27/20 16:56 04/27/20 20:25 04/27/20 20:34 Activated Partial Thromboplast Time 26 SEC (23-33) 73 SEC (23-33) H POC Whole Blood Glucose 135 MG/DL (74-106) H 129 MG/DL (74-106) H Test 04/28/20 01:00 04/28/20 04:00 04/28/20 05:57 04/28/20 06:01 Vancomycin Level Trough 13.8 ug/mL (5.0-12.0) H White Blood Count 6.8 K/UL (4.8-10.8) Red Blood Count 2.81 M/UL (4.70-6.10) L Hemoglobin 8.7 G/DL (14.2-18.0) L Hematocrit 27.4 % (42.0-52.0) L Mean Corpuscular Volume 98 FL (80-99) Mean Corpuscular Hemoglobin 31.0 PG (27.0-31.0) Mean Corpuscular Hemoglobin Concent 31.8 G/DL (32.0-36.0) L Red Cell Distribution Width 13.8 % (11.6-14.8) Platelet Count 116 K/UL (150-450) L Mean Platelet Volume 6.5 FL (6.5-10.1) Neutrophils (%) (Auto) 70.9 % (45.0-75.0) Lymphocytes (%) (Auto) 16.0 % (20.0-45.0) L Monocytes (%) (Auto) 5.7 % (1.0-10.0) Eosinophils (%) (Auto) 7.2 % (0.0-3.0) H Basophils (%) (Auto) 0.2 % (0.0-2.0) Erythrocyte Sedimentation Rate 90 MM/HR (0-20) H Activated Partial Thromboplast Time 76 SEC (23-33) H Stool Occult Blood Negative (NEGATIVE) Sodium Level 150 MMOL/L (136-145) H Potassium Level 3.4 MMOL/L (3.5-5.1) L Chloride Level 121 MMOL/L (98-107) H Carbon Dioxide Level 22 MMOL/L (21-32) Anion Gap 7 mmol/L (5-15) Blood Urea Nitrogen 30 mg/dL (7-18) H Creatinine 1.0 MG/DL (0.55-1.30) Estimat Glomerular Filtration Rate > 60 mL/min (>60) Glucose Level 156 MG/DL (74-106) H Uric Acid 3.4 MG/DL (2.6-7.2) Calcium Level 7.1 MG/DL (8.5-10.1) L Phosphorus Level 2.5 MG/DL (2.5-4.9) Magnesium Level 2.0 MG/DL (1.8-2.4) Total Bilirubin 0.3 MG/DL (0.2-1.0) Aspartate Amino Transf (AST/SGOT) 22 U/L (15-37) Alanine Aminotransferase (ALT/SGPT) 17 U/L (12-78) Alkaline Phosphatase 85 U/L (46-116) C-Reactive Protein, Quantitative 18.2 mg/dL (0.00-0.90) H Total Protein 4.2 G/DL (6.4-8.2) L Albumin 1.3 G/DL (3.4-5.0) L Globulin 2.9 g/dL Albumin/Globulin Ratio 0.4 (1.0-2.7) L Hepatitis A IgM Antibody Pending Hepatitis B Surface Antigen Pending Hepatitis B Core IgM Antibody Pending Hepatitis C Antibody Pending HIV (1&2) Antibody Rapid Negative (NEGATIVE) POC Whole Blood Glucose Pending 145 MG/DL (74-106) H Luzmaria Downey MD Apr 28, 2020 10:50
[2020-04-28] MEDS ORDERED: Heparin1,000 units/500ml Premix(Conc:2 units/ml) IV PRN (11:45)
[2020-04-28] MEDS ORDERED: Lidocaine 1% Plain 30 ml INJ PRN (11:45)
[2020-04-28] MEDS: Heparin 25,000u/D5W 500ml 500 ML IV SCH (11:49)
[2020-04-28 12:00] VITALS: BP 141/68
--- NOTE | 2020-04-28 12:00 | NUR ---
NURSE NOTES: Noted patient with accelerated junctional rhythm on glass enamel mixer, called Dr. Carlin to report. Left message, Awaiting further orders. Patient is asymptomatic. VS WNL. No apparent distress noted at this time. Patient Continues to be asleep.
--- NOTE | 2020-04-28 12:00 | NUR ---
NURSE NOTES: Seen and examined by Dr. Short with new orders noted and carried out. patient remains asleep. FLACC scotre noted at 0/10. No apparent distress noted. Will continue to monitor.
--- NOTE | 2020-04-28 12:48 | General Progress Note ---
Subjective ROS Limited/Unobtainable: No Allergies: Coded Allergies: No Known Allergies (Unverified , 06/11/17) Objective Last 24 Hour Vital Signs Date Time Temp Pulse Resp B/P (MAP) Pulse Ox O2 Delivery O2 Flow Rate FiO2 04/28/20 08:00 Non-Rebreather 04/28/20 08:00 72 04/28/20 08:00 15.0 04/28/20 07:02 100 Non-Rebreather 15.0 100 04/28/20 04:00 97.7 79 20 144/65 (91) 100 04/28/20 04:00 15.0 04/28/20 04:00 Non-Rebreather 04/28/20 03:27 69 04/28/20 00:00 Non-Rebreather 04/28/20 00:00 98.4 81 20 130/62 (84) 100 04/27/20 23:30 78 04/27/20 20:00 98.4 78 20 123/74 (90) 100 04/27/20 20:00 15.0 04/27/20 20:00 Non-Rebreather 04/27/20 19:21 84 04/27/20 19:05 100 Non-Rebreather 15.0 100 04/27/20 16:16 99.1 90 20 145/59 (87) 100 04/27/20 16:04 87 04/27/20 16:00 15.0 04/27/20 16:00 Non-Rebreather Intake and Output 04/27/20 04/28/20 19:00 07:00 Intake Total 1891.020 ml 2613.848 ml Output Total 400 ml 600 ml Balance 1491.020 ml 2013.848 ml Free Water 460 ml 100 ml IV Total 951.020 ml 1793.848 ml Tube Feeding 480 ml 720 ml Output Urine Total 400 ml 600 ml # Bowel Movements 1 1 Laboratory Tests 04/27/20 16:56: POC Whole Blood Glucose 135H 04/27/20 20:25: Activated Partial Thromboplast Time 73H 04/27/20 20:34: POC Whole Blood Glucose 129H 04/28/20 01:00: Vancomycin Level Trough 13.8H 04/28/20 04:00: White Blood Count 6.8, Red Blood Count 2.81L, Hemoglobin 8.7L, Hematocrit 27.4L, Mean Corpuscular Volume 98, Mean Corpuscular Hemoglobin 31.0, Mean Corpuscular Hemoglobin Concent 31.8L, Red Cell Distribution Width 13.8, Platelet Count 116L, Mean Platelet Volume 6.5, Neutrophils (%) (Auto) 70.9, Lymphocytes (%) (Auto) 16.0L, Monocytes (%) (Auto) 5.7, Eosinophils (%) (Auto) 7.2H, Basophils (%) (Auto) 0.2, Erythrocyte Sedimentation Rate 90H, Activated Partial Thromboplast Time 76H, Stool Occult Blood Negative, Sodium Level 150H, Potassium Level 3.4L, Chloride Level 121H, Carbon Dioxide Level 22, Anion Gap 7, Blood Urea Nitrogen 30H, Creatinine 1.0, Estimat Glomerular Filtration Rate > 60, Glucose Level 156H , Uric Acid 3.4, Calcium Level 7.1L, Phosphorus Level 2.5, Magnesium Level 2.0, Total Bilirubin 0.3, Aspartate Amino Transf (AST/SGOT) 22, Alanine Aminotransferase (ALT/SGPT) 17, Alkaline Phosphatase 85, C-Reactive Protein, Quantitative 18.2H, Total Protein 4.2L, Albumin 1.3L, Globulin 2.9, Albumin/Globulin Ratio 0.4L, Hepatitis A IgM Antibody [Pending], Hepatitis B Surface Antigen [Pending], Hepatitis B Core IgM Antibody [Pending], Hepatitis C Antibody [Pending], HIV (1&2) Antibody Rapid Negative 04/28/20 05:57: POC Whole Blood Glucose [Pending] 04/28/20 06:01: POC Whole Blood Glucose 145H 04/28/20 12:14: POC Whole Blood Glucose 99 Height (Feet): 6 Height (Inches): 0.00 Weight (Pounds): 148 General Appearance: no apparent distress EENT: normal ENT inspection Neck: supple Cardiovascular: normal rate Respiratory/Chest: decreased breath sounds Abdomen: normal bowel sounds, non tender, soft Extremities: non-tender Assessment/Plan Status: unchanged Assessment/Plan: 1. COPD. 2. Diabetes. 3. Schizophrenia. 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 5. Dementia. 6. Anemia 7. Dysphagia 8. Folate def NGTF add folate add folic acid not stable for PEG neg stool ob will Nathan Kemp MD Apr 28, 2020 12:48
[2020-04-28] MEDS ORDERED: Tubing IV Secondary IV ONE ×2 (13:35→14:29)
[2020-04-28] MEDS ORDERED: D5 1/2NS 1000ml IV ONE (14:29)
[2020-04-28] MEDS ORDERED: NS 275ml ONE (14:29)
[2020-04-28] MEDS: Vancomycin 750mg/NS 275ml IVPB SCH ×2 (14:38)
--- NOTE | 2020-04-28 15:15 | Brief Operative Note ---
Immediate Post Operative Note Operative Note Pre-op Diagnosis: needs IV access Procedure: PICC Post-op Diagnosis: same as pre-op Surgeon: Walt BOONE Anesthesia: local Specimen: none Complications: none Fluids: none Implant(s) used?: No Balbir Boone MD Apr 28, 2020 15:15
--- NOTE | 2020-04-28 15:27 | Diagnostic Imaging Report ---
Indication: Abdominal pain Technique: Otero-scale and duplex images of the upper abdomen were obtained Comparison: none Findings: Gallbladder cannot be visualized. Common bile duct measures 4 mm in diameter. No intrahepatic biliary ductal dilatation. Liver demonstrates slightly increased echogenicity, no focal abnormality. It is somewhat enlarged Portal vein and hepatic veins are patent. Pancreas is unremarkable. Spleen is unremarkable. Left kidney measures 9.5 cm in length. Right kidney measures 9.1 cm length. Both kidneys demonstrate slightly increased echogenicity. There is no hydronephrosis. There are renal cysts bilaterally. . Non-aneurysmal abdominal aorta . There is trace right pleural fluid Impression: Nonvisualized gallbladder. This may be contracted or surgically absent. Negative for dilated bile ducts Mild hepatomegaly. Increased hepatic echogenicity suggests hepatocellular disease, possibly fatty change Increased renal echogenicity, likely medical renal disease Trace right pleural effusion
[2020-04-28 16:00] VITALS: BP 131/79
--- NOTE | 2020-04-28 16:00 | NUR ---
NURSE NOTES: Patient noted on tamale maker back to sinus rhythm. Will continue to monitor.
--- NOTE | 2020-04-28 16:42 | NUR ---
[employer] [facility] TRAINER SI: RESP FAILURE,SEPSIS T. 97.9 HR 81 RR 20 B/P 141/68 NRM 100% O2 SAT @ 98% ESR 90 NA 150 K 3.4 BUN 30 IS: VANCO IV CEFEPIME IV ELEQUISE PO STEP DOWN STATUS
--- NOTE | 2020-04-28 16:47 | NUR ---
*-*DISCHARGE PLANNING*-* PATIENT HAS BEEN REFERRED TO: [facility] P: [phone] Addendum: 04/30/20 at 1036 by Jina Zavala PATIENT IS NOT REPRESENTED BY A FAMILY MEMBER OR LEGAL GUARDIAN. [facility] WILL NOT ACCEPT THIS PATIENT UNLESS [facility] DEEMS LTACH NECESSARY
--- NOTE | 2020-04-28 17:20 | NUR ---
NURSE HAND-OFF REPORT: Important Events on Shift: Cardiac rhythm change, MD made aware. Patient Status: Stable Diet: NGT feeding Pending Orders: Pending Results/Labs: Pending MD notification: Latest Vital Signs: Temperature 97.9 , Pulse 87 , B/P 131 /79 , Respiratory Rate 20 , O2 SAT 100 , Non-Rebreather, O2 Flow Rate 15.0 . Vital Sign Comment: EKG Rhythm: Sinus Rhythm Rhythm change?: Y Notified?: Gwen Carlin MD Response: Latest Andersen Fall Score: 50 Fall Risk: High Risk Safety Measures: Call light Within Reach, Bed Alarm Zone 2, Side Rails Side Rails x3, Bed position Low and Locked. Fall Precautions: Yellow Socks Yellow Gown Door Sign Patient Fall Education Report given to CRUZ Kebede.
--- NOTE | 2020-04-28 19:20 | NUR ---
NURSE NOTES: received report from Ayah Bellamy RN. pt remains stable. pt is alert and oriented times 1, able to respond to his name. pt is on engine monitor showing SR, no acute cardiac distress noted. pt is breathing non rebreather, sating 99% O2. pt bed is low, locked, armed, call light within reach, bed rails up times 3, will follow plan of care.
[2020-04-28 20:00] VITALS: BP 127/70
--- NOTE | 2020-04-28 20:38 | Diagnostic Imaging Report ---
Indications: Needs long-term IV access Technique: Procedure performed at bedside. Procedural timeout performed. Ultrasound confirms patent compressible right basilic vein. Total sterile technique, including sterile probe cover and sterile gel, sterile gloves, hand hygiene, hat, mask,, sterile gown, large sterile drape, and preparation with 2% chlorhexidine utilized. Local anesthesia with 1% lidocaine. Under real-time ultrasound guidance, puncture basilic vein using 21-gauge needle, passage 0.018 guidewire, exchange for 4 Brazilian peel-away sheath. 4 Brazilian Bard dual-lumen power PICC cut to 36 cm. It was inserted through the peel-away sheath. Peel-away sheath and guidewire removed. Catheter fixed to the skin. Both catheter ports aspirated and flushed. Patient tolerated procedure well, without immediate complication. Followup chest x-ray obtained, documents catheter tip position at the innominate venous confluence Impression: Successful bedside placement of right arm PICC under sonographic guidance, as described above.
--- NOTE | 2020-04-28 21:30 | NUR ---
NURSE NOTES: assessed pts heparin drip and pts newly placed PICC line. Heparin drip running as per facility/ pharmacy protocol. PICC line intact.
--- NOTE | 2020-04-28 22:35 | NUR ---
NURSE NOTES: pt has been turned, repositioned and cleaned. opti foams on pts pressure points.
--- NOTE | 2020-04-28 23:15 | Consultation ---
DATE OF CONSULTATION: 04/27/2020 PSYCHOTHERAPY CONSULTATION PROGRESS NOTE CONSULTING PHYSICIAN: Parul Carnes PsyD TREATING ATTENDING: German Carlin DO HISTORY OF PRESENT ILLNESS: This patient is a 80-year-old male patient from [facility]. Apparently, patient came into the hospital for respiratory failure. He has shortness of breath and patient has since been who was also referred for psychotherapeutic service. He has history of depression . I assessed this patient. Patient has been feeling depressed due to his medical condition. Patient indicates that he has had difficulty breathing. He remains hopeless and disorganized. The patient has been . No indication of suicidal or homicidal thoughts of ideation. There is no indication of auditory or visual hallucinations. The patient does have episodes of helplessness, hopelessness because of his current medical condition . PAST MEDICAL HISTORY: Includes a history of CVA, malnutrition, anemia, hypertension, diabetes, KORY. ALLERGIES: The patient has no known drug allergies. SUBSTANCE ABUSE HISTORY: There is no indication of alcohol use or illicit drug use. PSYCHIATRIC HISTORY: The patient does have a history of depression and has been treated with psychotropic medications in the past. SOCIAL HISTORY: The patient is a 80-year-old male patient from [facility]. Financially sustained by [email or web address]. MENTAL STATUS EXAMINATION: He is alert and oriented to person and place. Mood dysphoric. Affect is blunted. Thought process is negative and catastrophic. He has poor attention and concentration. Poor insight, judgment, impulse control. DIAGNOSES: 1. Rule out major depressive disorder, recurrent, moderate without psychotic features. 2. CVA, malnutrition, anemia, hypertension, diabetes. 3. Psychosocial stressors, moderate. . The patient is being treated at this time in a medical facility and depressed. I assessed the patient. I provided the patient with: 1. Reality orientation, orientating to person, place, time, and situation. 2. Supportive psychotherapy, encouraging patient positive communication skills addressing feelings of hopeless and helplessness due to his current medical condition. Plan is to maintain medication compliance, assist with positive coping skills, and stabilizing the thoughts and behavior. Psychotherapy service as 45 minutes. This clinician has reviewed the patient's chart and discussed the treatment with treatment team. Parul Carnes PsyD. DR: TATIANNA JOB#: [id number] CC:
--- NOTE | 2020-04-28 23:31 | Cardiology Progress Note ---
Assessment/Plan Assessment/Plan The patient is seen and examined, full consult note will be dictated shortly. Objective Last 24 Hour Vital Signs Date Time Temp Pulse Resp B/P (MAP) Pulse Ox O2 Delivery O2 Flow Rate FiO2 04/28/20 19:18 100 Non-Rebreather 15.0 100 04/28/20 16:00 97.9 87 20 131/79 (96) 100 04/28/20 16:00 15.0 04/28/20 16:00 87 04/28/20 16:00 Non-Rebreather 15.0 04/28/20 12:00 97.9 81 20 141/68 (92) 100 04/28/20 12:00 81 04/28/20 12:00 Non-Rebreather 15.0 04/28/20 12:00 15.0 04/28/20 08:00 Non-Rebreather 04/28/20 08:00 98.0 80 20 138/60 (86) 100 04/28/20 08:00 72 04/28/20 08:00 15.0 04/28/20 07:02 100 Non-Rebreather 15.0 100 04/28/20 04:00 97.7 79 20 144/65 (91) 100 04/28/20 04:00 15.0 04/28/20 04:00 Non-Rebreather 04/28/20 03:27 69 04/28/20 00:00 Non-Rebreather 04/28/20 00:00 98.4 81 20 130/62 (84) 100 Intake and Output 04/27/20 04/28/20 19:00 07:00 Intake Total 1891.020 ml 2613.848 ml Output Total 400 ml 600 ml Balance 1491.020 ml 2013.848 ml Free Water 460 ml 100 ml IV Total 951.020 ml 1793.848 ml Tube Feeding 480 ml 720 ml Output Urine Total 400 ml 600 ml # Bowel Movements 1 1 Laboratory Tests Test 04/28/20 01:00 04/28/20 04:00 04/28/20 05:57 04/28/20 06:01 Vancomycin Level Trough 13.8 ug/mL (5.0-12.0) H White Blood Count 6.8 K/UL (4.8-10.8) Red Blood Count 2.81 M/UL (4.70-6.10) L Hemoglobin 8.7 G/DL (14.2-18.0) L Hematocrit 27.4 % (42.0-52.0) L Mean Corpuscular Volume 98 FL (80-99) Mean Corpuscular Hemoglobin 31.0 PG (27.0-31.0) Mean Corpuscular Hemoglobin Concent 31.8 G/DL (32.0-36.0) L Red Cell Distribution Width 13.8 % (11.6-14.8) Platelet Count 116 K/UL (150-450) L Mean Platelet Volume 6.5 FL (6.5-10.1) Neutrophils (%) (Auto) 70.9 % (45.0-75.0) Lymphocytes (%) (Auto) 16.0 % (20.0-45.0) L Monocytes (%) (Auto) 5.7 % (1.0-10.0) Eosinophils (%) (Auto) 7.2 % (0.0-3.0) H Basophils (%) (Auto) 0.2 % (0.0-2.0) Erythrocyte Sedimentation Rate 90 MM/HR (0-20) H Activated Partial Thromboplast Time 76 SEC (23-33) H Stool Occult Blood Negative (NEGATIVE) Sodium Level 150 MMOL/L (136-145) H Potassium Level 3.4 MMOL/L (3.5-5.1) L Chloride Level 121 MMOL/L (98-107) H Carbon Dioxide Level 22 MMOL/L (21-32) Anion Gap 7 mmol/L (5-15) Blood Urea Nitrogen 30 mg/dL (7-18) H Creatinine 1.0 MG/DL (0.55-1.30) Estimat Glomerular Filtration Rate > 60 mL/min (>60) Glucose Level 156 MG/DL (74-106) H Uric Acid 3.4 MG/DL (2.6-7.2) Calcium Level 7.1 MG/DL (8.5-10.1) L Phosphorus Level 2.5 MG/DL (2.5-4.9) Magnesium Level 2.0 MG/DL (1.8-2.4) Total Bilirubin 0.3 MG/DL (0.2-1.0) Aspartate Amino Transf (AST/SGOT) 22 U/L (15-37) Alanine Aminotransferase (ALT/SGPT) 17 U/L (12-78) Alkaline Phosphatase 85 U/L (46-116) C-Reactive Protein, Quantitative 18.2 mg/dL (0.00-0.90) H Total Protein 4.2 G/DL (6.4-8.2) L Albumin 1.3 G/DL (3.4-5.0) L Globulin 2.9 g/dL Albumin/Globulin Ratio 0.4 (1.0-2.7) L Hepatitis A IgM Antibody Pending Hepatitis B Surface Antigen Pending Hepatitis B Core IgM Antibody Pending Hepatitis C Antibody Pending HIV (1&2) Antibody Rapid Negative (NEGATIVE) POC Whole Blood Glucose Pending 145 MG/DL (74-106) H Test 04/28/20 12:14 04/28/20 18:16 04/28/20 21:00 POC Whole Blood Glucose 99 MG/DL (74-106) 115 MG/DL (74-106) H Pending Microbiology Date/Time Source Procedure Growth Status 04/26/20 06:00 Nasopharynx - Final Complete 04/26/20 06:00 Nasopharynx - Final Complete Gama Whitney MD Apr 28, 2020 23:31
[2020-04-29] VITALS: BP 112/55
--- NOTE | 2020-04-29 01:05 | NUR ---
NURSE NOTES: preformed oral care on pt. pt sating 99% O2. no acute resp distress noted.
[2020-04-29] MEDS: Vancomycin 750mg/NS 275ml IVPB SCH ×4 (01:51→12:59)
--- NOTE | 2020-04-29 03:10 | NUR ---
NURSE NOTES: assessed pt. vital signs stable. heparin drip running at 18U/Kg/ Per hr, as per heparin drip protocol. re adjusted pts oxygen mask.
[2020-04-29 04:00] VITALS: BP 104/67
[2020-04-29 04:32] LABS: HEMATOCRIT 26.5 % (42.0-52.0); HEMOGLOBIN 8.5 G/DL (14.2-18.0); MEAN CORPUSCULAR VOLUME 96 FL (80-99); PLATELET COUNT 96 K/UL (150-450); RED BLOOD COUNT 2.78 M/UL (4.70-6.10); WHITE BLOOD COUNT 6.6 K/UL (4.8-10.8)
[2020-04-29 04:44] LABS: ALANINE AMINOTRANSFERASE 25 U/L (12-78); ALBUMIN 1.2 G/DL (3.4-5.0); ALBUMIN/GLOBULIN RATIO 0.4 (1.0-2.7); ALKALINE PHOSPHATASE 86 U/L (46-116); ANION GAP 3 mmol/L (5-15); ASPARTATE AMINO TRANSFERASE 35 U/L (15-37); BILIRUBIN,TOTAL 0.4 MG/DL (0.2-1.0); BLOOD UREA NITROGEN 25 mg/dL (7-18); CALCIUM 6.9 MG/DL (8.5-10.1); CARBON DIOXIDE 25 MMOL/L (21-32); CHLORIDE 117 MMOL/L (98-107); CREATININE 0.8 MG/DL (0.55-1.30); POTASSIUM 3.5 MMOL/L (3.5-5.1); SODIUM 145 MMOL/L (136-145)
--- NOTE | 2020-04-29 05:55 | NUR ---
NURSE NOTES: pharmacist Christine greer called. reviewed pts PTT of 63. adjusted Hep drip to 20U/Kg/HR and an additional Heparin 2500U IV.
[2020-04-29] MEDS ORDERED: Heparin 5000 units/ml inj IV SCH (06:00)
--- NOTE | 2020-04-29 06:10 | NUR ---
NURSE NOTES: called Doctor Tesfaye Acuna urgent line. spoke to Isaías from answering services. reported pts PTT of 63 and PLT of 96. awaiting call back, awaiting new orders.
[2020-04-29] MEDS: NovoLOG Insulin Flexpen SUBQ SCH ×4 (06:25→20:41)
[2020-04-29] MEDS: Heparin 25,000u/D5W 500ml 500 ML IV SCH ×2 (06:33→09:02)
--- NOTE | 2020-04-29 06:40 | Hematology/Onc Progress Note ---
Assessment/Plan Assessment/Plan # Bilateral pulmonary emboli on cta as well as Dvt on duplex --> Equivocal evidence of right heart strain; RV /LV ratio around 0.5 but is somewhat difficult to assess due to ventricular muscle hypertrophy --> duplex Positive for bilateral lower extremity deep venous thrombosis, as described --> continue on heparin gtt until stabilizes, then consider noac # Anemia of chronic disease, anemia panel is noted --> r.o bleed now that is on hep gtt --> hgb 10-->8.7-->8.5 -> no hemolysis is noted # Leukocytosis due to sepsis/uti --> ABX Cefepime/vanc --> smear is reviewed # COPD. --> breathing rx as needed # Diabetes mellitus --> iss, accuchecks qac and qhs # Schizophrenia. --> per psych recs # History of CVA with left hemiparesis. # Dementia. # Dysphagia with ngt # Folate def Appreciate consultation and jorge l Rn Subjective HEENT: Denies: no symptoms, eye pain, blurred vision, tearing, double vision, ear pain, ear discharge, nose pain, nose congestion, throat pain, throat swelling, mouth pain, mouth swelling, other Cardiovascular: Denies: no symptoms, chest pain, edema, irregular heart rate, lightheadedness, palpitations, syncope, other Respiratory: Denies: no symptoms, cough, shortness of breath, SOB with excertion, SOB at rest, sputum, wheezing, other Gastrointestinal/Abdominal: Denies: no symptoms, abdomen distended, abdominal pain, black stools, tarry stools, blood in stool, constipated, diarrhea, difficulty swallowing, nausea, poor appetite, poor fluid intake, rectal bleeding, vomiting, other Genitourinary: Denies: no symptoms, burning, discharge, frequency, flank pain, hematuria, incontinence, pain, urgency, other Neurologic/Psychiatric: Denies: no symptoms, anxiety, depressed, emotional problems, headache, numbness, paresthesia, pre-existing deficit, seizure, tingling, tremors, weakness, other Endocrine: Denies: no symptoms, excessive sweating, flushing, intolerance to cold, intolerance to heat, increased hunger, increased thirst, increased urine, unexplained weight gain, unexplained weight loss, other Hematologic/Lymphatic: Denies: no symptoms, anemia, easy bleeding, easy bruising, adenopathy, other Allergies: Coded Allergies: No Known Allergies (Unverified , 06/11/17) Subjective 04/29 remains on heparin gtt, labs noted, no bleeding, h/h stable, on folate Objective Objective Current Medications Medications (Trade) Dose Ordered Sig/Lopez Route PRN Reason Start Time Stop Time Status Last Admin Dose Admin Acetaminophen (Tylenol) 650 mg Q4H PRN ORAL fever 04/25/20 00:00 05/25/20 00:00 Albuterol/ Ipratropium (Albuterol/ Ipratropium) 3 ml Q4H PRN HHN Shortness of Breath 04/25/20 00:00 04/30/20 00:00 Cefepime HCl 1 gm/ Dextrose 55 ml @ 110 mls/hr EVERY 12 HOURS IV 04/25/20 09:00 05/02/20 08:59 04/28/20 21:01 Chlorhexidine Gluconate (Arpita-Hex 2%) 1 applic DAILY@2000 TOPIC 04/29/20 20:00 07/28/20 19:59 Dextrose (Dextrose 50%) 25 ml Q30M PRN IV Hypoglycemia 04/25/20 00:00 07/24/20 00:00 Dextrose (Dextrose 50%) 50 ml Q30M PRN IV Hypoglycemia 04/25/20 00:00 07/24/20 00:00 Folic Acid (Folate) 1 mg DAILY ORAL 04/29/20 09:00 05/29/20 08:59 Heparin Sodium (Porcine) (Heparin 5000 units/ml) 2,500 units ONCE IV 04/29/20 06:00 04/29/20 08:00 04/29/20 06:35 Heparin Sodium/ Dextrose 500 ml @ 26.853 mls/ hr ADJUST PER PROTOCOL IV 04/29/20 06:00 05/29/20 05:59 04/29/20 06:33 Heparin Sodium/ Sodium Chloride (Heparin 1000 units/500ml Premix) 1,000 unit ONCE PRN IV PICC 04/28/20 11:45 04/30/20 11:44 Insulin Aspart (NovoLOG) BEFORE MEALS AND HS SUBQ 04/25/20 06:30 07/24/20 06:29 04/28/20 06:22 Lamotrigine (LaMICtal) 25 mg DAILY ORAL 04/25/20 09:00 05/25/20 08:59 04/28/20 09:06 Lidocaine HCl (Xylocaine 1% 30ml) 30 ml ONCE PRN INJ PICC 04/28/20 11:45 04/30/20 11:44 Lorazepam (Ativan 2mg/ml 1ml) 0.5 mg Q4H PRN IV Agitation 04/25/20 01:00 05/02/20 00:59 Memantine (Namenda) 5 mg TWICE A DAY ORAL 04/25/20 09:00 05/25/20 08:59 04/28/20 18:00 Olanzapine (ZyPREXA) 5 mg DAILY ORAL 04/25/20 09:00 06/09/20 08:59 04/28/20 09:06 Ondansetron HCl (Zofran) 4 mg Q6H PRN IVP Nausea & Vomiting 04/25/20 00:00 05/25/20 00:00 Polyethylene Glycol (Miralax) 17 gm DAILYPRN PRN ORAL Constipation 04/25/20 00:00 05/25/20 00:00 Quetiapine Fumarate (SEROqueL) 50 mg Q12HR ORAL 04/27/20 11:30 06/11/20 11:29 04/28/20 21:01 Temazepam (Restoril) 15 mg HSPRN PRN ORAL Insomnia 04/25/20 00:00 05/02/20 00:00 Vancomycin HCl (Vanco pharmacy to dose) 1 ea DAILY PRN MISC Per rx protocol 04/25/20 00:00 05/25/20 00:00 Vancomycin HCl 750 mg/Sodium Chloride 275 ml @ 183.333 mls/hr Q12H IVPB 04/28/20 14:00 05/03/20 13:59 04/29/20 01:51 Last 24 Hour Vital Signs Date Time Temp Pulse Resp B/P (MAP) Pulse Ox O2 Delivery O2 Flow Rate FiO2 04/29/20 03:39 74 04/29/20 00:00 15.0 04/29/20 00:00 Non-Rebreather 15.0 04/29/20 00:00 98.2 70 24 112/55 (74) 100 04/29/20 00:00 82 04/28/20 20:00 15.0 04/28/20 20:00 Non-Rebreather 15.0 04/28/20 20:00 98.2 78 20 127/70 (89) 100 04/28/20 19:18 100 Non-Rebreather 15.0 100 04/28/20 19:16 75 04/28/20 16:00 97.9 87 20 131/79 (96) 100 04/28/20 16:00 15.0 04/28/20 16:00 87 04/28/20 16:00 Non-Rebreather 15.0 04/28/20 12:00 97.9 81 20 141/68 (92) 100 04/28/20 12:00 81 04/28/20 12:00 Non-Rebreather 15.0 04/28/20 12:00 15.0 04/28/20 08:00 Non-Rebreather 04/28/20 08:00 98.0 80 20 138/60 (86) 100 04/28/20 08:00 72 04/28/20 08:00 15.0 04/28/20 07:02 100 Non-Rebreather 15.0 100 04/28/20 04:00 97.7 79 20 144/65 (91) 100 04/28/20 04:00 15.0 04/28/20 04:00 Non-Rebreather 04/28/20 03:27 69 04/28/20 00:00 Non-Rebreather 04/28/20 00:00 98.4 81 20 130/62 (84) 100 04/27/20 23:30 78 04/27/20 20:00 98.4 78 20 123/74 (90) 100 04/27/20 20:00 15.0 04/27/20 20:00 Non-Rebreather 04/27/20 19:21 84 04/27/20 19:05 100 Non-Rebreather 15.0 100 04/27/20 16:16 99.1 90 20 145/59 (87) 100 04/27/20 16:04 87 04/27/20 16:00 15.0 04/27/20 16:00 Non-Rebreather 04/27/20 12:41 108 04/27/20 12:34 97.9 77 20 179/59 (99) 100 04/27/20 12:26 15.0 04/27/20 12:25 Non-Rebreather 04/27/20 08:00 97.7 78 20 145/79 (101) 100 04/27/20 08:00 79 04/27/20 08:00 Non-Rebreather 04/27/20 08:00 15.0 04/27/20 07:55 100 Non-Rebreather 15.0 100 Intake and Output 04/28/20 04/29/20 19:00 07:00 Intake Total 1294.168 ml 1211.629 ml Output Total 1500 ml Balance -205.832 ml 1211.629 ml Free Water 400 ml 300 ml IV Total 174.168 ml 431.629 ml Tube Feeding 720 ml 480 ml Output Urine Total 1500 ml # Bowel Movements 1 Labs Test 04/26/20 07:25 04/26/20 11:09 04/26/20 11:40 04/26/20 17:00 Arterial Blood pH 7.478 (7.350-7.450) 7.390 (7.350-7.450) Arterial Blood Partial Pressure CO2 24.9 mmHg (35.0-45.0) 19.7 mmHg (35.0-45.0) Arterial Blood Partial Pressure O2 192.5 mmHg (75.0-100.0) 55.4 mmHg (75.0-100.0) Arterial Blood HCO3 18.0 mmol/L (22.0-26.0) 11.9 mmol/L (22.0-26.0) Arterial Blood Oxygen Saturation 99.2 % (95-100) 90.2 % (95-100) Arterial Blood Base Excess -4.5 (-2-2) -11.9 (-2-2) Pepe Test Positive Positive Test 04/26/20 20:44 04/27/20 02:50 04/27/20 05:14 04/27/20 12:05 POC Whole Blood Glucose 121 MG/DL (74-106) 118 MG/DL (74-106) White Blood Count 6.6 K/UL (4.8-10.8) Red Blood Count 3.14 M/UL (4.70-6.10) Hemoglobin 9.7 G/DL (14.2-18.0) Hematocrit 31.0 % (42.0-52.0) Mean Corpuscular Volume 99 FL (80-99) Mean Corpuscular Hemoglobin 31.0 PG (27.0-31.0) Mean Corpuscular Hemoglobin Concent 31.4 G/DL (32.0-36.0) Red Cell Distribution Width 13.9 % (11.6-14.8) Platelet Count 135 K/UL (150-450) Mean Platelet Volume 7.1 FL (6.5-10.1) Neutrophils (%) (Auto) 81.1 % (45.0-75.0) Lymphocytes (%) (Auto) 11.1 % (20.0-45.0) Monocytes (%) (Auto) 4.2 % (1.0-10.0) Eosinophils (%) (Auto) 3.3 % (0.0-3.0) Basophils (%) (Auto) 0.4 % (0.0-2.0) Erythrocyte Sedimentation Rate 82 MM/HR (0-20) Sodium Level 154 MMOL/L (136-145) Potassium Level 3.5 MMOL/L (3.5-5.1) Chloride Level 124 MMOL/L (98-107) Carbon Dioxide Level 23 MMOL/L (21-32) Anion Gap 7 mmol/L (5-15) Blood Urea Nitrogen 32 mg/dL (7-18) Creatinine 1.0 MG/DL (0.55-1.30) Estimat Glomerular Filtration Rate > 60 mL/min (>60) Glucose Level 130 MG/DL (74-106) Uric Acid 4.2 MG/DL (2.6-7.2) Calcium Level 7.9 MG/DL (8.5-10.1) Phosphorus Level 2.0 MG/DL (2.5-4.9) Magnesium Level 2.1 MG/DL (1.8-2.4) Total Bilirubin 0.4 MG/DL (0.2-1.0) Aspartate Amino Transf (AST/SGOT) 26 U/L (15-37) Alanine Aminotransferase (ALT/SGPT) 19 U/L (12-78) Alkaline Phosphatase 101 U/L (46-116) C-Reactive Protein, Quantitative 19.3 mg/dL (0.00-0.90) Total Protein 4.7 G/DL (6.4-8.2) Albumin 1.5 G/DL (3.4-5.0) Globulin 3.2 g/dL Albumin/Globulin Ratio 0.5 (1.0-2.7) Activated Partial Thromboplast Time 26 SEC (23-33) Test 04/27/20 16:56 04/27/20 20:25 04/27/20 20:34 04/28/20 01:00 POC Whole Blood Glucose 135 MG/DL (74-106) 129 MG/DL (74-106) Activated Partial Thromboplast Time 73 SEC (23-33) Vancomycin Level Trough 13.8 ug/mL (5.0-12.0) Test 04/28/20 04:00 04/28/20 05:57 04/28/20 06:01 04/28/20 12:14 White Blood Count 6.8 K/UL (4.8-10.8) Red Blood Count 2.81 M/UL (4.70-6.10) Hemoglobin 8.7 G/DL (14.2-18.0) Hematocrit 27.4 % (42.0-52.0) Mean Corpuscular Volume 98 FL (80-99) Mean Corpuscular Hemoglobin 31.0 PG (27.0-31.0) Mean Corpuscular Hemoglobin Concent 31.8 G/DL (32.0-36.0) Red Cell Distribution Width 13.8 % (11.6-14.8) Platelet Count 116 K/UL (150-450) Mean Platelet Volume 6.5 FL (6.5-10.1) Neutrophils (%) (Auto) 70.9 % (45.0-75.0) Lymphocytes (%) (Auto) 16.0 % (20.0-45.0) Monocytes (%) (Auto) 5.7 % (1.0-10.0) Eosinophils (%) (Auto) 7.2 % (0.0-3.0) Basophils (%) (Auto) 0.2 % (0.0-2.0) Erythrocyte Sedimentation Rate 90 MM/HR (0-20) Activated Partial Thromboplast Time 76 SEC (23-33) Stool Occult Blood Negative (NEGATIVE) Sodium Level 150 MMOL/L (136-145) Potassium Level 3.4 MMOL/L (3.5-5.1) Chloride Level 121 MMOL/L (98-107) Carbon Dioxide Level 22 MMOL/L (21-32) Anion Gap 7 mmol/L (5-15) Blood Urea Nitrogen 30 mg/dL (7-18) Creatinine 1.0 MG/DL (0.55-1.30) Estimat Glomerular Filtration Rate > 60 mL/min (>60) Glucose Level 156 MG/DL (74-106) Uric Acid 3.4 MG/DL (2.6-7.2) Calcium Level 7.1 MG/DL (8.5-10.1) Phosphorus Level 2.5 MG/DL (2.5-4.9) Magnesium Level 2.0 MG/DL (1.8-2.4) Total Bilirubin 0.3 MG/DL (0.2-1.0) Aspartate Amino Transf (AST/SGOT) 22 U/L (15-37) Alanine Aminotransferase (ALT/SGPT) 17 U/L (12-78) Alkaline Phosphatase 85 U/L (46-116) C-Reactive Protein, Quantitative 18.2 mg/dL (0.00-0.90) Total Protein 4.2 G/DL (6.4-8.2) Albumin 1.3 G/DL (3.4-5.0) Globulin 2.9 g/dL Albumin/Globulin Ratio 0.4 (1.0-2.7) HIV (1&2) Antibody Rapid Negative (NEGATIVE) POC Whole Blood Glucose 145 MG/DL (74-106) 99 MG/DL (74-106) Test 04/28/20 18:16 04/28/20 21:00 04/29/20 04:21 POC Whole Blood Glucose 115 MG/DL (74-106) White Blood Count 6.6 K/UL (4.8-10.8) Red Blood Count 2.78 M/UL (4.70-6.10) Hemoglobin 8.5 G/DL (14.2-18.0) Hematocrit 26.5 % (42.0-52.0) Mean Corpuscular Volume 96 FL (80-99) Mean Corpuscular Hemoglobin 30.6 PG (27.0-31.0) Mean Corpuscular Hemoglobin Concent 32.0 G/DL (32.0-36.0) Red Cell Distribution Width 14.0 % (11.6-14.8) Platelet Count 96 K/UL (150-450) Mean Platelet Volume 6.7 FL (6.5-10.1) Neutrophils (%) (Auto) % (45.0-75.0) Lymphocytes (%) (Auto) % (20.0-45.0) Monocytes (%) (Auto) % (1.0-10.0) Eosinophils (%) (Auto) % (0.0-3.0) Basophils (%) (Auto) % (0.0-2.0) Activated Partial Thromboplast Time 63 SEC (23-33) Sodium Level 145 MMOL/L (136-145) Potassium Level 3.5 MMOL/L (3.5-5.1) Chloride Level 117 MMOL/L (98-107) Carbon Dioxide Level 25 MMOL/L (21-32) Anion Gap 3 mmol/L (5-15) Blood Urea Nitrogen 25 mg/dL (7-18) Creatinine 0.8 MG/DL (0.55-1.30) Estimat Glomerular Filtration Rate > 60 mL/min (>60) Glucose Level 125 MG/DL (74-106) Calcium Level 6.9 MG/DL (8.5-10.1) Total Bilirubin 0.4 MG/DL (0.2-1.0) Aspartate Amino Transf (AST/SGOT) 35 U/L (15-37) Alanine Aminotransferase (ALT/SGPT) 25 U/L (12-78) Alkaline Phosphatase 86 U/L (46-116) Pro-B-Type Natriuretic Peptide 1530 pg/mL (0-125) Total Protein 4.0 G/DL (6.4-8.2) Albumin 1.2 G/DL (3.4-5.0) Globulin 2.8 g/dL Albumin/Globulin Ratio 0.4 (1.0-2.7) Height (Feet): 6 Height (Inches): 0.00 Weight (Pounds): 148 General Appearance: lethargic Neck: non-tender Cardiovascular: regular rhythm Respiratory/Chest: normal breath sounds Abdomen: no organomegaly Extremities: non-tender Neurologic: no motor/sensory deficits Skin: warm/dry Sree Dubon MD Apr 29, 2020 06:40
--- NOTE | 2020-04-29 07:20 | NUR ---
NURSE HAND-OFF REPORT: Important Events on Shift:[monitor Heparin drip] Patient Status: [stable] Diet: [tube feeding] Pending Orders: [lab APTT] Pending Results/Labs:[lab APTT] Pending MD notification:[Lab APTT and PLT for doctor Tesfaye Swift ] Latest Vital Signs: Temperature 98.6 , Pulse 76 , B/P 104 /67 , Respiratory Rate 24 , O2 SAT 100 , Non-Rebreather, O2 Flow Rate 15.0 . Vital Sign Comment: [stable] EKG Rhythm: Sinus Rhythm Rhythm change?: N Notified?: N -Dr. Tesfaye SAAVEDRA Response: Latest Andersen Fall Score: 50 Fall Risk: High Risk Safety Measures: Call light Within Reach, Bed Alarm Zone 2, Side Rails Side Rails x3, Bed position Low and Locked. Fall Precautions: Yellow Socks Yellow Gown Door Sign Patient Fall Education Report given to [Aniket Godoy RN].
--- NOTE | 2020-04-29 07:25 | NUR ---
NURSE NOTES: Patient received lying in bed, asleep, lethargic, arousable to name and/or light shaking. No signs of pain at this time. On venturi mask 50%, oxygen saturation at 100%. No acute distress noted. Respirations even. Running Vital AF at 60 ml/ hr via left nare NG tube, aspiration precaution in place. Right upper arm PICC, dressing intact, no soilage, flushed and patent. Right soft wrist restraint in place, skin and pulses intact. Contreras catheter in place, draining to yellow urine. Sinus Rhythm on the monitor, rate fo 70-80s. Safety measures implemented. Bed kept at low position. Will continue to monitor the patient.
[2020-04-29 08:00] VITALS: BP 126/73
[2020-04-29] MEDS: Memantine 10mg tab ORAL SCH ×2 (08:31→17:22)
[2020-04-29] MEDS: Cefepime HCl 1 GM in D5W 55 ML IV SCH ×2 (08:31→20:39)
--- NOTE | 2020-04-29 09:36 | Nephrology Progress Note ---
Assessment/Plan Problem List: (1) KORY (acute kidney injury) (2) Hypernatremia (3) Dehydration (4) Acute respiratory failure Assessment Patient presents with acute hypoxic respiratory failure requiring BiPAP Sepsis lactic acidosis KORY Dehydration, hypernatremia History of COPD Anemia Low BMI, malnutrition. BMI of 20.1 History of CVA History of diabetes mellitus Plan April 29: Serum sodium normalized. Electrolytes within normal limit. Remains on nonrebreather mask. Continue per consultants. April 28: Continue D5W. Abnormal electrolytes addressed. Continue per consultants. Remains full code. Remains on nonrebreather mask. April 27: Continue D5W. Continue pulmonary support. Monitor renal parameters and electrolytes. Continue per consultants. Patient full code. Remains on nonrebreathing mask. Contreras catheter IV D5W Monitor electrolytes and renal parameters Antibiotics Avoid nephrotoxic's 2D echocardiogram Per orders Subjective ROS Limited/Unobtainable: Yes Objective Objective Last 24 Hour Vital Signs Date Time Temp Pulse Resp B/P (MAP) Pulse Ox O2 Delivery O2 Flow Rate FiO2 04/29/20 08:00 97.8 94 22 126/73 (90) 100 04/29/20 04:00 15.0 04/29/20 04:00 Non-Rebreather 15.0 04/29/20 04:00 98.6 76 24 104/67 (79) 100 04/29/20 03:39 74 04/29/20 00:00 15.0 04/29/20 00:00 Non-Rebreather 15.0 04/29/20 00:00 98.2 70 24 112/55 (74) 100 04/29/20 00:00 82 04/28/20 20:00 15.0 04/28/20 20:00 Non-Rebreather 15.0 04/28/20 20:00 98.2 78 20 127/70 (89) 100 04/28/20 19:18 100 Non-Rebreather 15.0 100 04/28/20 19:16 75 04/28/20 16:00 97.9 87 20 131/79 (96) 100 04/28/20 16:00 15.0 04/28/20 16:00 87 04/28/20 16:00 Non-Rebreather 15.0 04/28/20 12:00 97.9 81 20 141/68 (92) 100 04/28/20 12:00 81 04/28/20 12:00 Non-Rebreather 15.0 04/28/20 12:00 15.0 Intake and Output 04/28/20 04/29/20 19:00 07:00 Intake Total 1294.168 ml 1763.709 ml Output Total 1500 ml 650 ml Balance -205.832 ml 1113.709 ml Free Water 400 ml 600 ml IV Total 174.168 ml 443.709 ml Tube Feeding 720 ml 720 ml Output Urine Total 1500 ml 650 ml # Bowel Movements 1 Laboratory Tests 04/28/20 12:14: POC Whole Blood Glucose 99 04/28/20 18:16: POC Whole Blood Glucose 115H 04/28/20 21:00: POC Whole Blood Glucose [Pending] 04/29/20 04:21: White Blood Count 6.6, Red Blood Count 2.78L, Hemoglobin 8.5L, Hematocrit 26.5L, Mean Corpuscular Volume 96, Mean Corpuscular Hemoglobin 30.6, Mean Corpuscular Hemoglobin Concent 32.0, Red Cell Distribution Width 14.0, Platelet Count 96L, Mean Platelet Volume 6.7, Neutrophils (%) (Auto) , Lymphocytes (%) (Auto) , Monocytes (%) (Auto) , Eosinophils (%) (Auto) , Basophils (%) (Auto) , Activated Partial Thromboplast Time 63H, Sodium Level 145, Potassium Level 3.5, Chloride Level 117H, Carbon Dioxide Level 25, Anion Gap 3L, Blood Urea Nitrogen 25H, Creatinine 0.8, Estimat Glomerular Filtration Rate > 60, Glucose Level 125H, Calcium Level 6.9L, Total Bilirubin 0.4, Aspartate Amino Transf (AST/SGOT) 35, Alanine Aminotransferase (ALT/SGPT) 25, Alkaline Phosphatase 86, Pro-B-Type Natriuretic Peptide 1530H, Total Protein 4.0L, Albumin 1.2L, Globulin 2.8, Albumin/Globulin Ratio 0.4L 04/29/20 06:24: POC Whole Blood Glucose [Pending] Height (Feet): 6 Height (Inches): 0.00 Weight (Pounds): 148 General Appearance: no apparent distress EENT: other - Continues to be on nonrebreather mask Cardiovascular: tachycardia Respiratory/Chest: decreased breath sounds Abdomen: distended Maximino Castillo MD 12, 2020 09:36
--- NOTE | 2020-04-29 09:38 | Psychiatry Consultation ---
Psychiatry Consultation Psychiatry Consultation Chief Complaint: Dyspnea/Respdistress History of Present Illness: 80-year-old male patient he has respiratory failure but he also has altered mental status and declining cognition below his baseline as well as attending physician is requested daily psychiatric consultation to try to prevent any further decline in his cognition since his bedside continue treatment strategy of meds April the April 28, 2005 April 29 is date of service chart reviewed discussed and seems also bedside thinking Mental status examination: 80-year-old male is appearance is disheveled his attitude irritable agitated affect labile intellect poor mood depressed anxious moderately psychomotor station or change [place] injection x2 speech is low volume slurred thought process disorganized logical suggesting support Allergies: Coded Allergies: No Known Allergies (Unverified , 06/11/17) Medication History Scheduled Amino Acids/Protein Hydrolys (Pro-Stat Liquid), 30 ML ORAL DAILY, (Reported) Aspirin (Aspirin EC), 81 MG ORAL DAILY, (Reported) Docusate Sodium* (Colace*), 100 MG ORAL DAILY, (Reported) Folic Acid* (Folic Acid*), 1 MG ORAL DAILY, (Reported) Heparin Sod (Porcine) (Heparin Sodium*), 5,000 UNITS SUBQ DAILY, (Reported) Lamotrigine* (Lamictal*), 25 MG ORAL DAILY, (Reported) Lisinopril (Lisinopril*), 20 MG ORAL BID, (Reported) Memantine Hcl* (Namenda*), 5 MG ORAL TWICE A DAY, (Reported) Multivitamin With Minerals (Multivitamins With Minerals*), 1 TAB ORAL DAILY, (Reported) Olanzapine* (Zyprexa*), 5 MG ORAL DAILY, (Reported) Sennosides (Senna), 2 TAB PO BEDTIME, (Reported) Scheduled PRN Acetaminophen* (Acetaminophen 325MG Tablet*), 650 MG ORAL Q4H PRN for Fever/Headache/Mild Pain, (Reported) Bisacodyl (Dulcolax), 10 MG RC for Constipation, (Reported) Hydralazine Hcl* (Hydralazine Hcl*), 10 MG ORAL Q4HR PRN for SBP > 160 , (Reported) Ipratropium/Albuterol Sulfate (DuoNeb 0.5-3(2.5)mg/3ml), 1 UNIT HHN EVERY 6 HOURS PRN for Shortness of Breath, (Reported) Magnesium Hydroxide* (Milk Of Magnesia*), 30 ML ORAL EVERY 6 HOURS PRN for Constipation, (Reported) Na Phos,M-B/Na Phos,Di-Ba* (Fleet Enema*), 133 ML RECTAL DAILY PRN for Constipation, (Reported) Nitroglycerin 0.4MG table* (Nitroglycerin*), 0.4 MG SL .Q5MIN X 3 DOSES PRN for CHEST PAIN, (Reported) Miscellaneous Medications Insulin Lispro (Humalog), 0 SUBQ, (Reported) Discontinued Medications Ascorbic Acid* (Vitamin C*), 500 MG ORAL DAILY, (Reported) Discontinued Reason: Pt stopped taking med Benazepril Hcl* (Lotensin*), 20 MG ORAL BID, (Reported) Discontinued Reason: Pt stopped taking med Calcium Carbonate/Vitamin D3 (Calcium 500 + Vit D 200 Tablet), 1 EACH PO BID, (Reported) Discontinued Reason: Pt stopped taking med Cranberry Extract (Cranberry), 425 MG PO, (Reported) Discontinued Reason: Pt stopped taking med Escitalopram Oxalate* (Lexapro*), 10 MG ORAL DAILY, (Reported) Discontinued Reason: Pt stopped taking med Folic Acid/Vitamin B Comp W-C (Sarah-Ruben Tablet), 0.8 MG PO DAILY, (Reported) Discontinued Reason: Pt stopped taking med Insulin Aspart* (Novolog*), 0 SUBQ BEFORE MEALS AND HS, (Reported) Discontinued Reason: Pt stopped taking med Lamotrigine* (Lamictal*), 25 MG ORAL DAILY, (Reported) Discontinued Reason: Pt stopped taking med Levofloxacin* (Levaquin*), 750 MG ORAL DAILY, (Reported) Discontinued Reason: Pt stopped taking med Lisinopril* (Lisinopril*), 20 MG ORAL DAILY, (Reported) Discontinued Reason: Prescription changed Lorazepam* (Ativan*), 0.5 MG ORAL EVERY 6 HOURS, (Reported) Discontinued Reason: Pt stopped taking med Memantine Hcl* (Namenda*), 5 MG ORAL DAILY, (Reported) Discontinued Reason: Pt stopped taking med Olanzapine* (Zyprexa*), 5 MG ORAL HS, (Reported) Discontinued Reason: Pt stopped taking med Temazepam* (Restoril*), 15 MG ORAL BEDTIME PRN for Insomnia, (Reported) Discontinued Reason: Pt stopped taking med Vitamin B Cmplx/Vit C/Folic AC (Nephro-Ruben Tablet), 1 TAB ORAL DAILY, (Repor amado) Discontinued Reason: Pt stopped taking med Objective Data Height (Feet): 6 Height (Inches): 0.00 Weight (Pounds): 148 Assessment/Plan Assessment/Plan: Continue the patient on Lamictal, Zyprexa, Ativan and Namenda. 20min of insight oriented psychotherapy to help him recognize his psychical and cogintive deficits so that he has less depression and better impulse control. Diagnosis Ferney I: Paranoid schizophrenia with exacerbation rule out dementia with psychosis Dakota Monroe MD Apr 29, 2020 09:38
--- NOTE | 2020-04-29 10:50 | Pulmonolgy Critical Care Note ---
Critical Care - Asmt/Plan Problems: (1) Acute respiratory failure (2) Acute massive pulmonary embolism (3) Acute deep vein thrombosis (DVT) (4) ATN (acute tubular necrosis) (5) Acute encephalopathy (6) UTI (urinary tract infection) (7) Protein-calorie malnutrition, severe (8) Diabetes (9) HTN (hypertension) (10) CVA (cerebral vascular accident) Respiratory: monitor respiratory rate, adjust FIO2, other - on 40% venturi mask Renal: F/U I&O, check electrolytes Infectious Disease: check cultures, continue antibiotics Gastrointestinal: continue feedings/current rate Endocrine: monitor blood sugar Hematologic: transfuse if hgb<8.5 Neurologic: PRN Ativan, keep patient comfortable Prophylaxis: Protonix, Heparin Disposition: keep in ICU Notes 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, 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, 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 with: nurses, consultants, case managerstraffic incident management manager - Objective Last 24 Hour Vital Signs Date Time Temp Pulse Resp B/P (MAP) Pulse Ox O2 Delivery O2 Flow Rate FiO2 04/29/20 09:00 35 04/29/20 08:05 79 04/29/20 08:00 50 04/29/20 08:00 97.8 94 22 126/73 (90) 100 04/29/20 08:00 Venturi Mask 12.0 04/29/20 04:00 15.0 04/29/20 04:00 Non-Rebreather 15.0 04/29/20 04:00 98.6 76 24 104/67 (79) 100 04/29/20 03:39 74 04/29/20 00:00 15.0 04/29/20 00:00 Non-Rebreather 15.0 04/29/20 00:00 98.2 70 24 112/55 (74) 100 04/29/20 00:00 82 04/28/20 20:00 15.0 04/28/20 20:00 Non-Rebreather 15.0 04/28/20 20:00 98.2 78 20 127/70 (89) 100 04/28/20 19:18 100 Non-Rebreather 15.0 100 04/28/20 19:16 75 04/28/20 16:00 97.9 87 20 131/79 (96) 100 04/28/20 16:00 15.0 04/28/20 16:00 87 04/28/20 16:00 Non-Rebreather 15.0 04/28/20 12:00 97.9 81 20 141/68 (92) 100 04/28/20 12:00 81 04/28/20 12:00 Non-Rebreather 15.0 04/28/20 12:00 15.0 Status: sedated, somnolent Condition: critical, improving HEENT: atraumatic Neck: full ROM Lungs: clear Heart: HR/BP stable, HR/BP unstable Abdomen: soft, active bowel sounds Extremities: no C/C/E Micro: Microbiology Date/Time Source Procedure Growth Status 04/26/20 15:05 Blood Blood Culture - Preliminary NO GROWTH AFTER 48 HOURS Resulted 04/26/20 15:05 Blood Blood Culture - Preliminary NO GROWTH AFTER 48 HOURS Resulted Accucheck: 118 Critical Care - Subjective ROS Limited/Unobtainable: Yes Condition: critical EKG Rhythm: Sinus Rhythm FI02: 35 Vent Support Breath Rate: 18 Vent Support Mode: BiLevel Sputum Amount: None Tube Feeding Amount: 60 I&O: Intake and Output 04/28/20 04/29/20 19:00 07:00 Intake Total 1294.168 ml 1763.709 ml Output Total 1500 ml 650 ml Balance -205.832 ml 1113.709 ml Free Water 400 ml 600 ml IV Total 174.168 ml 443.709 ml Tube Feeding 720 ml 720 ml Output Urine Total 1500 ml 650 ml # Bowel Movements 1 Labs: Laboratory Tests Test 04/28/20 12:14 04/28/20 18:16 04/28/20 21:00 04/29/20 04:21 POC Whole Blood Glucose 99 MG/DL (74-106) 115 MG/DL (74-106) H Pending White Blood Count 6.6 K/UL (4.8-10.8) Red Blood Count 2.78 M/UL (4.70-6.10) L Hemoglobin 8.5 G/DL (14.2-18.0) L Hematocrit 26.5 % (42.0-52.0) L Mean Corpuscular Volume 96 FL (80-99) Mean Corpuscular Hemoglobin 30.6 PG (27.0-31.0) Mean Corpuscular Hemoglobin Concent 32.0 G/DL (32.0-36.0) Red Cell Distribution Width 14.0 % (11.6-14.8) Platelet Count 96 K/UL (150-450) L Mean Platelet Volume 6.7 FL (6.5-10.1) Neutrophils (%) (Auto) % (45.0-75.0) Lymphocytes (%) (Auto) % (20.0-45.0) Monocytes (%) (Auto) % (1.0-10.0) Eosinophils (%) (Auto) % (0.0-3.0) Basophils (%) (Auto) % (0.0-2.0) Activated Partial Thromboplast Time 63 SEC (23-33) H Sodium Level 145 MMOL/L (136-145) Potassium Level 3.5 MMOL/L (3.5-5.1) Chloride Level 117 MMOL/L (98-107) H Carbon Dioxide Level 25 MMOL/L (21-32) Anion Gap 3 mmol/L (5-15) L Blood Urea Nitrogen 25 mg/dL (7-18) H Creatinine 0.8 MG/DL (0.55-1.30) Estimat Glomerular Filtration Rate > 60 mL/min (>60) Glucose Level 125 MG/DL (74-106) H Calcium Level 6.9 MG/DL (8.5-10.1) L Total Bilirubin 0.4 MG/DL (0.2-1.0) Aspartate Amino Transf (AST/SGOT) 35 U/L (15-37) Alanine Aminotransferase (ALT/SGPT) 25 U/L (12-78) Alkaline Phosphatase 86 U/L (46-116) Pro-B-Type Natriuretic Peptide 1530 pg/mL (0-125) H Total Protein 4.0 G/DL (6.4-8.2) L Albumin 1.2 G/DL (3.4-5.0) L Globulin 2.8 g/dL Albumin/Globulin Ratio 0.4 (1.0-2.7) L Test 04/29/20 06:24 POC Whole Blood Glucose Pending Luzmaria Downey MD Apr 29, 2020 10:50
--- NOTE | 2020-04-29 11:00 | NUR ---
RESPIRATORY NOTE: Pt appears to be lethargic, suggested ABG. Dr Downey doesn't want ABG for now. CRUZ Marcial aware.
--- NOTE | 2020-04-29 11:06 | NUR ---
NURSE NOTES: Dr. Downey in facility, does not want an ABG right now for the patient being lethargic. Monitor sleeping and waking up status. Per MD, CT of head may be ordered later on if still lethargic. Noted and carried out.
[2020-04-29 12:00] VITALS: BP 116/62
--- NOTE | 2020-04-29 12:39 | Infectious Diseases Prog Note ---
Assessment/Plan Assessment: Sepsis UTI -u/a wbc 50-60, nit neg, leuk +1; ucx Neg Gram positive bacteremia- real vs contaminant -04/24 sp cx 1/2 S. epi; 04/26 Bcx NTD Fever; SP No leukocytosis -04/26 influenza screen neg CXR: Borderline cardiomegaly. No acute process -04/24 CXR: No acute cardiopulmonary disease. covid rapid PCR neg Acute hypoxic resp failure- SP NRB>Bipap> VM B/l DVT and PE -CTA chest: Positive for bilateral pulmonary emboli Equivocal evidence of right heart strain; RV /LV ratio around 0.5 but is somewhat difficult to assess due to ventricular muscle hypertrophy. Left basilar compressive atelectasis, pleural fluid, and possibly some consolidation. Trace right pleural fluid. Subtle mosaic perfusion pattern, nonspecific but probably represents very mild pulmonary edema. Cardiomegaly. Nasogastric tube -V. duplex: : On the right, occlusive thrombus is seen within the downstream common femoral vein, the femoral vein, popliteal vein as well as within multiple calf veins. On the left, occlusive thrombus is seen within the femoral vein and popliteal vein the common femoral vein and calf veins are patent. COPD DM2 HTN schizophrenia malnutrition CVA w/ left spastic hemiparesis vascular dementia schizoaffective-bipolar type SNF resident (Everette peterson) Plan: -COntinue empiric CEfepime #6/7 and IV Vancomycin #5/5 -f/u cx -Monitor CBC/CMP, temperatures -aspiration precautions -f/u repeat Bcx x2 Thank you for consulting [facility]. Will continue to follow along with you. Discussed with RN. Subjective Allergies: Coded Allergies: No Known Allergies (Unverified , 06/11/17) afebrile no leukocytosis BCx NTD Objective Last 24 Hour Vital Signs Date Time Temp Pulse Resp B/P (MAP) Pulse Ox O2 Delivery O2 Flow Rate FiO2 04/29/20 09:00 35 04/29/20 08:05 79 04/29/20 08:00 50 04/29/20 08:00 97.8 94 22 126/73 (90) 100 04/29/20 08:00 Venturi Mask 12.0 04/29/20 04:00 15.0 04/29/20 04:00 Non-Rebreather 15.0 04/29/20 04:00 98.6 76 24 104/67 (79) 100 04/29/20 03:39 74 04/29/20 00:00 15.0 04/29/20 00:00 Non-Rebreather 15.0 04/29/20 00:00 98.2 70 24 112/55 (74) 100 04/29/20 00:00 82 04/28/20 20:00 15.0 04/28/20 20:00 Non-Rebreather 15.0 04/28/20 20:00 98.2 78 20 127/70 (89) 100 04/28/20 19:18 100 Non-Rebreather 15.0 100 04/28/20 19:16 75 04/28/20 16:00 97.9 87 20 131/79 (96) 100 04/28/20 16:00 15.0 04/28/20 16:00 87 04/28/20 16:00 Non-Rebreather 15.0 Height (Feet): 6 Height (Inches): 0.00 Weight (Pounds): 148 GENERAL: BiPAP in place, sleeping, not talking much. CARDIOVASCULAR: No murmur. LUNGS: Poor exchange. ABDOMEN: Bowel sounds distant. EXTREMITIES: No cyanosis, clubbing, or edema. Microbiology Date/Time Source Procedure Growth Status 04/26/20 15:05 Blood Blood Culture - Preliminary NO GROWTH AFTER 48 HOURS Resulted 04/26/20 15:05 Blood Blood Culture - Preliminary NO GROWTH AFTER 48 HOURS Resulted Laboratory Tests Test 04/28/20 18:16 04/28/20 21:00 04/29/20 04:21 04/29/20 06:24 POC Whole Blood Glucose 115 MG/DL (74-106) H Pending Pending White Blood Count 6.6 K/UL (4.8-10.8) Red Blood Count 2.78 M/UL (4.70-6.10) L Hemoglobin 8.5 G/DL (14.2-18.0) L Hematocrit 26.5 % (42.0-52.0) L Mean Corpuscular Volume 96 FL (80-99) Mean Corpuscular Hemoglobin 30.6 PG (27.0-31.0) Mean Corpuscular Hemoglobin Concent 32.0 G/DL (32.0-36.0) Red Cell Distribution Width 14.0 % (11.6-14.8) Platelet Count 96 K/UL (150-450) L Mean Platelet Volume 6.7 FL (6.5-10.1) Neutrophils (%) (Auto) % (45.0-75.0) Lymphocytes (%) (Auto) % (20.0-45.0) Monocytes (%) (Auto) % (1.0-10.0) Eosinophils (%) (Auto) % (0.0-3.0) Basophils (%) (Auto) % (0.0-2.0) Activated Partial Thromboplast Time 63 SEC (23-33) H Sodium Level 145 MMOL/L (136-145) Potassium Level 3.5 MMOL/L (3.5-5.1) Chloride Level 117 MMOL/L (98-107) H Carbon Dioxide Level 25 MMOL/L (21-32) Anion Gap 3 mmol/L (5-15) L Blood Urea Nitrogen 25 mg/dL (7-18) H Creatinine 0.8 MG/DL (0.55-1.30) Estimat Glomerular Filtration Rate > 60 mL/min (>60) Glucose Level 125 MG/DL (74-106) H Calcium Level 6.9 MG/DL (8.5-10.1) L Total Bilirubin 0.4 MG/DL (0.2-1.0) Aspartate Amino Transf (AST/SGOT) 35 U/L (15-37) Alanine Aminotransferase (ALT/SGPT) 25 U/L (12-78) Alkaline Phosphatase 86 U/L (46-116) Pro-B-Type Natriuretic Peptide 1530 pg/mL (0-125) H Total Protein 4.0 G/DL (6.4-8.2) L Albumin 1.2 G/DL (3.4-5.0) L Globulin 2.8 g/dL Albumin/Globulin Ratio 0.4 (1.0-2.7) L Test 04/29/20 12:03 04/29/20 12:10 POC Whole Blood Glucose 129 MG/DL (74-106) H Activated Partial Thromboplast Time Pending Current Medications Medications (Trade) Dose Ordered Sig/Lopez Route PRN Reason Start Time Stop Time Status Last Admin Dose Admin Acetaminophen (Tylenol) 650 mg Q4H PRN ORAL fever 11/8/20 00:00 05/25/20 00:00 Albuterol/ Ipratropium (Albuterol/ Ipratropium) 3 ml Q4H PRN HHN Shortness of Breath 04/25/20 00:00 04/30/20 00:00 Cefepime HCl 1 gm/ Dextrose 55 ml @ 110 mls/hr EVERY 12 HOURS IV 04/25/20 09:00 05/02/20 08:59 04/29/20 08:31 Chlorhexidine Gluconate (Arpita-Hex 2%) 1 applic DAILY@2000 TOPIC 04/29/20 20:00 07/28/20 19:59 Dextrose (Dextrose 50%) 25 ml Q30M PRN IV Hypoglycemia 04/25/20 00:00 07/24/20 00:00 Dextrose (Dextrose 50%) 50 ml Q30M PRN IV Hypoglycemia 04/25/20 00:00 07/24/20 00:00 Folic Acid (Folate) 1 mg DAILY ORAL 04/29/20 09:00 05/29/20 08:59 04/29/20 08:31 Heparin Sodium/ Dextrose 500 ml @ 26.853 mls/ hr ADJUST PER PROTOCOL IV 04/29/20 06:00 05/29/20 05:59 04/29/20 09:02 Heparin Sodium/ Sodium Chloride (Heparin 1000 units/500ml Premix) 1,000 unit ONCE PRN IV PICC 04/28/20 11:45 04/30/20 11:44 Insulin Aspart (NovoLOG) BEFORE MEALS AND HS SUBQ 04/25/20 06:30 07/24/20 06:29 04/28/20 06:22 Lamotrigine (LaMICtal) 25 mg DAILY ORAL 04/25/20 09:00 05/25/20 08:59 04/29/20 08:31 Lidocaine HCl (Xylocaine 1% 30ml) 30 ml ONCE PRN INJ PICC 04/28/20 11:45 04/30/20 11:44 Lorazepam (Ativan 2mg/ml 1ml) 0.5 mg Q4H PRN IV Agitation 04/25/20 01:00 05/02/20 00:59 Memantine (Namenda) 5 mg TWICE A DAY ORAL 04/25/20 09:00 05/25/20 08:59 04/29/20 08:31 Olanzapine (ZyPREXA) 5 mg DAILY ORAL 04/25/20 09:00 06/09/20 08:59 04/29/20 08:31 Ondansetron HCl (Zofran) 4 mg Q6H PRN IVP Nausea & Vomiting 04/25/20 00:00 05/25/20 00:00 Polyethylene Glycol (Miralax) 17 gm DAILYPRN PRN ORAL Constipation 04/25/20 00:00 05/25/20 00:00 Quetiapine Fumarate (SEROqueL) 50 mg Q12HR ORAL 04/27/20 11:30 06/11/20 11:29 04/29/20 08:31 Temazepam (Restoril) 15 mg HSPRN PRN ORAL Insomnia 04/25/20 00:00 05/02/20 00:00 Vancomycin HCl (Vanco pharmacy to dose) 1 ea DAILY PRN MISC Per rx protocol 04/25/20 00:00 05/25/20 00:00 Vancomycin HCl 750 mg/Sodium Chloride 275 ml @ 183.333 mls/hr Q12H IVPB 04/28/20 14:00 05/03/20 13:59 04/29/20 01:51 Babita Morales M.D. Apr 29, 2020 12:39
--- NOTE | 2020-04-29 12:41 | NUR ---
SPEECH PATHOLOGY NOTE/DYSPHAGIA TX. PATIENT SEEN FOR DYSPHAGIA TX SESSION, CLEARED BY CRUZ SERRANO. PATIENT PRESENTS ILL/FRAIL. HE WAS POSITIONED UPRIGHT FOR P.O. TRIALS WITH ICE CFHIPS. TODAY, HE PRESENTS WITH WHAT APPEARS TO BE A DECLINE IN CONDITION FROM HIS STATUS 2 DAYS PRIOR. THIS MORNING HE IS ON A VENTURI MASK, AT 12.0 02 FLOW, FIO2 50%. HIS BASELINE RR IS 22-24, BUT WHEN CLINICIAN ARRIVED, HE HAD REMOVED THE MASK AND HIS RR WAS AT 36 BPM, P.O. TRIALS CONTRAINDICATED AT THIS TIME. PATIENT UNABLE TO FOLLOW SIMPLE COMMANDS, MAINTAIN EYE CONTACT OR PARTICIPATE IN SIMPLE CONVERSATION. ORAL CARE COMPLETED DUE TO XEROSTOMIA. PATIENT TOLERATED LIMITED ORAL HYGIENE WITH MOISTENED TOOTHETTE SPONGES. ST WILL CONTINUE TO FOLLOW FOR DIET TOLERANCE, P.O. TRIALS WITH ST ONLY. THANK YOU FOR THIS REFERRAL. ocedure: CTA Chest w Contrast ndication: Shortness of breath Technique: IV administration nonionic contrast. Spiral acquisitions obtained from the lung bases to the lung apices. Multiplanar and 3-D reconstructions were generated. Total dose length product 231 mGycm. CTDIvol(s) 5, 46, C6 mGy. Dose reduction achieved using automated exposure control Comparison: none Findings: Filling defects are seen within multiple right upper lobe segmental branches within the main right lower lobe pulmonary artery, and extending into multiple branches. Smaller filling defects are seen a few in subsegmental left upper lobe and left lower lobe branches. The right pulmonary artery is dilated, measuring 3 cm in diameter. The left and main pulmonary arteries are ectatic but not frankly dilated. There is four-chamber cardiomegaly and left ventricular muscle hypertrophy. Cardiac anatomy is difficult to assess for right heart strain,; all of the right ventricle does appear somewhat prominent and right to left ventricle ratio is right around 50%. The ascending thoracic aorta is ectatic but not aneurysmal Subtle mosaic perfusion is seen in both lungs, particularly in the upper lobes. There is some atelectasis and possibly some consolidation at the left lung base, as well as some compressive atelectasis at the right lung base. There are small bilateral pleural effusions. No masses or nodules. There is a nasogastric tube. The esophagus is otherwise unremarkable. No mediastinal or hilar mass or adenopathy. The included thyroid is unremarkable. No axillary or chest wall mass or adenopathy. The included upper abdominal anatomy is unremarkable. Impression: Positive for bilateral pulmonary emboli Equivocal evidence of right heart strain; RV /LV ratio around 0.5 but is somewhat difficult to assess due to ventricular muscle hypertrophy Left basilar compressive atelectasis, pleural fluid, and possibly some consolidation
--- NOTE | 2020-04-29 12:52 | NUR ---
RADIOLOGY DEPT., CHEST X-RAY DONE.-P.DYE
--- NOTE | 2020-04-29 12:52 | General Progress Note ---
Subjective ROS Limited/Unobtainable: No Allergies: Coded Allergies: No Known Allergies (Unverified , 06/11/17) Objective Last 24 Hour Vital Signs Date Time Temp Pulse Resp B/P (MAP) Pulse Ox O2 Delivery O2 Flow Rate FiO2 04/29/20 09:00 35 04/29/20 08:05 79 04/29/20 08:00 50 04/29/20 08:00 97.8 94 22 126/73 (90) 100 04/29/20 08:00 Venturi Mask 12.0 04/29/20 04:00 15.0 04/29/20 04:00 Non-Rebreather 15.0 04/29/20 04:00 98.6 76 24 104/67 (79) 100 04/29/20 03:39 74 04/29/20 00:00 15.0 04/29/20 00:00 Non-Rebreather 15.0 04/29/20 00:00 98.2 70 24 112/55 (74) 100 04/29/20 00:00 82 04/28/20 20:00 15.0 04/28/20 20:00 Non-Rebreather 15.0 04/28/20 20:00 98.2 78 20 127/70 (89) 100 04/28/20 19:18 100 Non-Rebreather 15.0 100 04/28/20 19:16 75 04/28/20 16:00 97.9 87 20 131/79 (96) 100 04/28/20 16:00 15.0 04/28/20 16:00 87 04/28/20 16:00 Non-Rebreather 15.0 Intake and Output 04/28/20 04/29/20 19:00 07:00 Intake Total 1294.168 ml 1763.709 ml Output Total 1500 ml 650 ml Balance -205.832 ml 1113.709 ml Free Water 400 ml 600 ml IV Total 174.168 ml 443.709 ml Tube Feeding 720 ml 720 ml Output Urine Total 1500 ml 650 ml # Bowel Movements 1 Laboratory Tests 04/28/20 18:16: POC Whole Blood Glucose 115H 04/28/20 21:00: POC Whole Blood Glucose [Pending] 04/29/20 04:21: White Blood Count 6.6, Red Blood Count 2.78L, Hemoglobin 8.5L, Hematocrit 26.5L, Mean Corpuscular Volume 96, Mean Corpuscular Hemoglobin 30.6, Mean Corpuscular Hemoglobin Concent 32.0, Red Cell Distribution Width 14.0, Platelet Count 96L, Mean Platelet Volume 6.7, Neutrophils (%) (Auto) , Lymphocytes (%) (Auto) , Monocytes (%) (Auto) , Eosinophils (%) (Auto) , Basophils (%) (Auto) , Activated Partial Thromboplast Time 63H, Sodium Level 145, Potassium Level 3.5, Chloride Level 117H, Carbon Dioxide Level 25, Anion Gap 3L, Blood Urea Nitrogen 25H, Creatinine 0.8, Estimat Glomerular Filtration Rate > 60, Glucose Level 125H, Calcium Level 6.9L, Total Bilirubin 0.4, Aspartate Amino Transf (AST/SGOT) 35, Alanine Aminotransferase (ALT/SGPT) 25, Alkaline Phosphatase 86, Pro-B-Type Natriuretic Peptide 1530H, Total Protein 4.0L, Albumin 1.2L, Globulin 2.8, Albumin/Globulin Ratio 0.4L 04/29/20 06:24: POC Whole Blood Glucose [Pending] 04/29/20 12:03: POC Whole Blood Glucose 129H 04/29/20 12:10: Activated Partial Thromboplast Time 70H Height (Feet): 6 Height (Inches): 0.00 Weight (Pounds): 148 General Appearance: lethargic EENT: normal ENT inspection Neck: supple Cardiovascular: normal rate Respiratory/Chest: decreased breath sounds Abdomen: normal bowel sounds, non tender, soft Extremities: non-tender Assessment/Plan Status: unchanged Assessment/Plan: 1. COPD. 2. Diabetes. 3. Schizophrenia. 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 5. Dementia. 6. Anemia 7. Dysphagia 8. Folate def NGTF add folate add folic acid not stable for PEG neg stool ob will Nathan Kemp MD Apr 29, 2020 12:52
--- NOTE | 2020-04-29 13:26 | General Progress Note ---
Subjective Constitutional: Reports: weakness Allergies: Coded Allergies: No Known Allergies (Unverified , 06/11/17) All Systems: reviewed and negative except above Subjective ng sleepy in bed Objective Last 24 Hour Vital Signs Date Time Temp Pulse Resp B/P (MAP) Pulse Ox O2 Delivery O2 Flow Rate FiO2 04/29/20 12:00 97.8 90 22 116/62 (80) 100 04/29/20 09:00 35 04/29/20 08:05 79 04/29/20 08:00 50 04/29/20 08:00 97.8 94 22 126/73 (90) 100 04/29/20 08:00 Venturi Mask 12.0 04/29/20 04:00 15.0 04/29/20 04:00 Non-Rebreather 15.0 04/29/20 04:00 98.6 76 24 104/67 (79) 100 04/29/20 03:39 74 04/29/20 00:00 15.0 04/29/20 00:00 Non-Rebreather 15.0 04/29/20 00:00 98.2 70 24 112/55 (74) 100 04/29/20 00:00 82 04/28/20 20:00 15.0 04/28/20 20:00 Non-Rebreather 15.0 04/28/20 20:00 98.2 78 20 127/70 (89) 100 04/28/20 19:18 100 Non-Rebreather 15.0 100 04/28/20 19:16 75 04/28/20 16:00 97.9 87 20 131/79 (96) 100 04/28/20 16:00 15.0 04/28/20 16:00 87 04/28/20 16:00 Non-Rebreather 15.0 Intake and Output 04/28/20 04/29/20 19:00 07:00 Intake Total 1294.168 ml 1763.709 ml Output Total 1500 ml 650 ml Balance -205.832 ml 1113.709 ml Free Water 400 ml 600 ml IV Total 174.168 ml 443.709 ml Tube Feeding 720 ml 720 ml Output Urine Total 1500 ml 650 ml # Bowel Movements 1 Laboratory Tests 04/28/20 18:16: POC Whole Blood Glucose 115H 04/28/20 21:00: POC Whole Blood Glucose [Pending] 04/29/20 04:21: White Blood Count 6.6, Red Blood Count 2.78L, Hemoglobin 8.5L, Hematocrit 26.5L, Mean Corpuscular Volume 96, Mean Corpuscular Hemoglobin 30.6, Mean Corpuscular Hemoglobin Concent 32.0, Red Cell Distribution Width 14.0, Platelet Count 96L, Mean Platelet Volume 6.7, Neutrophils (%) (Auto) , Lymphocytes (%) (Auto) , Monocytes (%) (Auto) , Eosinophils (%) (Auto) , Basophils (%) (Auto) , Activated Partial Thromboplast Time 63H, Sodium Level 145, Potassium Level 3.5, Chloride Level 117H, Carbon Dioxide Level 25, Anion Gap 3L, Blood Urea Nitrogen 25H, Creatinine 0.8, Estimat Glomerular Filtration Rate > 60, Glucose Level 125H, Calcium Level 6.9L, Total Bilirubin 0.4, Aspartate Amino Transf (AST/SGOT) 35, Alanine Aminotransferase (ALT/SGPT) 25, Alkaline Phosphatase 86, Pro-B-Type Natriuretic Peptide 1530H, Total Protein 4.0L, Albumin 1.2L, Globulin 2.8, Albumin/Globulin Ratio 0.4L 04/29/20 06:24: POC Whole Blood Glucose [Pending] 04/29/20 12:03: POC Whole Blood Glucose 129H 04/29/20 12:10: Activated Partial Thromboplast Time 70H Height (Feet): 6 Height (Inches): 0.00 Weight (Pounds): 148 General Appearance: lethargic EENT: PERRL/EOMI Neck: normal alignment Cardiovascular: normal peripheral pulses, normal rate, regular rhythm Respiratory/Chest: chest wall non-tender, lungs clear, normal breath sounds Abdomen: normal bowel sounds, non tender, soft Extremities: normal inspection Edema: no edema noted Arm (L), no edema noted Arm (R), no edema noted Leg (L), no edema noted Leg (R), no edema noted Pedal (L), no edema noted Pedal (R), no edema noted Generalized Neurologic: motor weakness Skin: normal pigmentation, warm/dry Assessment/Plan Problem List: (1) UTI (urinary tract infection) ICD Codes: N39.0 - Urinary tract infection, site not specified SNOMED: 23658000 (2) CVA (cerebral vascular accident) ICD Codes: I63.9 - Cerebral infarction, unspecified SNOMED: 133994437 (3) KORY (acute kidney injury) ICD Codes: N17.9 - Acute kidney failure, unspecified SNOMED: 5379902, 66320464 (4) HTN (hypertension) ICD Codes: I10 - Essential (primary) hypertension SNOMED: 95507883 (5) Diabetes ICD Codes: E11.9 - Type 2 diabetes mellitus without complications SNOMED: 40451859 (6) Dehydration ICD Codes: E86.0 - Dehydration SNOMED: 78319584 (7) Hypernatremia ICD Codes: E87.0 - Hyperosmolality and hypernatremia SNOMED: 44297083 (8) Acute respiratory failure ICD Codes: J96.00 - Acute respiratory failure, unspecified whether with hypoxia or hypercapnia SNOMED: 61494719 Status: unchanged Assessment/Plan: o2 pulm tx abx pt diet cbc bmp am ltach German Villanueva DO Apr 29, 2020 13:26
--- NOTE | 2020-04-29 14:29 | Diagnostic Imaging Report ---
Indication: Shortness of breath Technique: One view of the chest Comparison: 04/28/2020 post PICC image Findings: Less optimal inspiration currently. Again demonstrated is opacity at the left lung base, likely combination of infiltrate and pleural fluid. Unchanged right arm PICC. Unchanged nasogastric tube, tip of which projects beyond the edge of the image. Cardiomegaly persists Impression: Left basilar opacity, likely combination of pleural fluid and consolidation/atelectasis, unchanged since previous day's exam Other stable findings as noted
--- NOTE | 2020-04-29 14:30 | NUR ---
NURSE NOTES: Patient brought down to CT and back to unit. Remained stable and lethargic. Will continue to monitor.
--- NOTE | 2020-04-29 15:41 | Diagnostic Imaging Report ---
Indications: Weakness and altered mental status Technique: Spiral acquisitions obtained through the brain. Angled axial and coronal 5 x 5 mm slices were reconstructed. Total dose length product 1179 mGycm. CTDI vol(s) 53 mGy. Dose reduction achieved using automated exposure control Comparison: 06/26/2017 Findings: Again demonstrated is encephalomalacia of the right parietal and posterior frontal lobe. There is also a large old lacunar infarct in the right basal ganglia region. 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 There is ex vacuo dilatation of the frontal horn and body of the right lateral ventricle. There is generalized age-related enlargement of the ventricles and extra axial CSF spaces. There is periventricular deep white matter chronic and age-related changes. Low-attenuation, consistent with chronic microvascular ischemic changes. Old lacunar infarct is seen in the left basal ganglia. No acute intracranial bleed, or mass effect. No midline shift. The calvarium is intact. The mastoids are clear. There is extensive disease of the ethmoid and sphenoid sinuses. There is also some mastoid effusion bilaterally, left greater than right. No significant interim change except for the sinus disease Impression: Multiple old infarcts as described Negative for acute intracranial bleed or mass effect. Other chronic and age-related changes as noted Ethmoid and sphenoid sinus disease, new since previous exam Bilateral mastoid effusions The CT scanner at [facility] is accredited by the [employer] and the scans are performed using protocols designed to limit radiation exposure to as low as reasonably achievable to attain images of sufficient resolution adequate for diagnostic evaluation.
[2020-04-29 16:00] VITALS: BP 115/71
[2020-04-29] MEDS: Eliquis 5mg tablet ORAL SCH (17:22)
--- NOTE | 2020-04-29 19:20 | NUR ---
NURSE NOTES: pt report received from Aniket ARROYO pt remains stable. pt is alert and oriented times 1, opens eyes to name. pt is sating at 97% O2, on a non rebreather mask, no acute resp abnormalities. pt is on school lunch monitor showing NSR, no other cardiac abnormalities noted. pt bed is low, locked, armed call light within reach, bed rails up times 3. will follow plan of care.
[2020-04-29 20:00] VITALS: BP 123/53
[2020-04-29] MEDS: Dyna-Hex 2% Top Sol 2oz TOPIC SCH (20:38)
--- NOTE | 2020-04-29 21:20 | NUR ---
NURSE NOTES: assessed pts G tube feeding. feeding running as per doctor order. vital AF 60cc an hr. pt does not appear to be in any apparent distress.
[2020-04-30] VITALS (7 sets, daily range): BP systolic 126–149; BP diastolic 39–95
--- NOTE | 2020-04-30 00:10 | NUR ---
NURSE NOTES: pt was turned, repositioned and cleaned.
--- NOTE | 2020-04-30 01:45 | NUR ---
NURSE NOTES: pt was found de sating to 74%O2. ABG was ordered.
--- NOTE | 2020-04-30 01:46 | NUR ---
NURSE NOTES: pt was placed on BIPAP. pt is now sating at 99% O2. 25 breaths per min. other vital signs stable. will continue to monitor.
[2020-04-30] MEDS: Vancomycin 750mg/NS 275ml IVPB SCH ×2 (03:31)
--- NOTE | 2020-04-30 03:40 | NUR ---
NURSE NOTES: assessed pt. pt appears to be resting comfortably in bed. Bipap on 05/22 70% as per Doctor order. pt is sating 99% O2, resp at 22 per min. vital signs stable.
[2020-04-30 04:54] LABS: BASOPHILS % (AUTO) 0.4 % (0.0-2.0); EOSINOPHILS % (AUTO) 4.6 % (0.0-3.0); HEMATOCRIT 27.3 % (42.0-52.0); HEMOGLOBIN 8.6 G/DL (14.2-18.0); LYMPHOCYTES % (AUTO) 15.4 % (20.0-45.0); MEAN CORPUSCULAR VOLUME 99 FL (80-99); MONOCYTES % (AUTO) 6.9 % (1.0-10.0); NEUTROPHILS % (AUTO) 72.7 % (45.0-75.0); PLATELET COUNT 120 K/UL (150-450); RED BLOOD COUNT 2.77 M/UL (4.70-6.10); RED CELL DISTRIBUTION WIDTH 13.9 % (11.6-14.8); WHITE BLOOD COUNT 6.4 K/UL (4.8-10.8)
[2020-04-30 05:12] LABS: ALANINE AMINOTRANSFERASE 26 U/L (12-78); ALBUMIN 1.2 G/DL (3.4-5.0); ALBUMIN/GLOBULIN RATIO 0.4 (1.0-2.7); ALKALINE PHOSPHATASE 95 U/L (46-116); ASPARTATE AMINO TRANSFERASE 55 U/L (15-37); BILIRUBIN,TOTAL 0.4 MG/DL (0.2-1.0); CALCIUM 7.4 MG/DL (8.5-10.1); CHLORIDE 117 MMOL/L (98-107); CREATININE 0.9 MG/DL (0.55-1.30); PHOSPHORUS 2.2 MG/DL (2.5-4.9); POTASSIUM 3.5 MMOL/L (3.5-5.1); SODIUM 146 MMOL/L (136-145)
[2020-04-30 05:29] LABS: BLOOD UREA NITROGEN 24 mg/dL (7-18); CARBON DIOXIDE 22 MMOL/L (21-32)
[2020-04-30] MEDS: NovoLOG Insulin Flexpen SUBQ SCH ×4 (05:52→20:05)
--- NOTE | 2020-04-30 06:00 | NUR ---
NURSE NOTES: assessed pts G tube feeding. running as Doctor order. vital AF running at 60 CC an hr. pts PICC line dressing changed. PICC line able to flush. no abnormalities to PICC site.
--- NOTE | 2020-04-30 07:20 | NUR ---
NURSE HAND-OFF REPORT: Important Events on Shift:[BiPAP usage.] Patient Status: [Stable] Diet: [as per Doctor order] Pending Orders: [NA] Pending Results/Labs:[NA] Pending MD notification:[NA] Latest Vital Signs: Temperature 98.1 , Pulse 74 , B/P 126 /95 , Respiratory Rate 16 , O2 SAT 100 , Venturi Mask, O2 Flow Rate 12.0 . Vital Sign Comment: [Stable] EKG Rhythm: Sinus Rhythm Rhythm change?: N Notified?: N -Dr. Tesfaye SAAVEDRA Response: Latest Andersen Fall Score: 50 Fall Risk: High Risk Safety Measures: Call light Within Reach, Bed Alarm Zone 2, Side Rails Side Rails x3, Bed position Low and Locked. Fall Precautions: Yellow Socks Yellow Gown Door Sign Patient Fall Education Report given to [Yuliet Valerio RN].
--- NOTE | 2020-04-30 07:21 | NUR ---
NURSE NOTES: Patient and report received from Matt Estrada RN. Pt observed laying in bed, sleeping, opens eyes to name. Pt received on a BiPAP 12/5, FiO2 70%; O2sat reading 98%. pt is on polisher hand showing NSR, no other cardiac abnormalities noted. Rt UA PICC in place, dressing clean dry and intact. Saline locked PIV -Rt AC #20g and Lt AC #20g. NGT running Vital AF @ 60mL/hr. Contreras catheter noted and draining to urometer. Bed is low, locked, armed call light within reach, bed rails up times 3. Will resume plan of care.
--- NOTE | 2020-04-30 08:10 | Psychiatry Consultation ---
Psychiatry Consultation Psychiatry Consultation Chief Complaint: Dyspnea/Respdistress History of Present Illness: 80-year-old male patient continues to have some confusion and some disorganized thought process some mood lability but patient has altered mental status and confusion because his cognition has declined below his baseline his attending has requested daily psychiatric consultation Mental status examination: 80-year-old male appearance of disheveled attitude irritable agitated affect guarded extremely restricted intellect poor mood depressed anxious motor ac tivity psychomotor agitation attention is poor orientation x2 speech is low volume slurred thought process disorganized logical insight judgment was poor Allergies: Coded Allergies: No Known Allergies (Unverified , 06/11/17) Medication History Scheduled Amino Acids/Protein Hydrolys (Pro-Stat Liquid), 30 ML ORAL DAILY, (Reported) Aspirin (Aspirin EC), 81 MG ORAL DAILY, (Reported) Docusate Sodium* (Colace*), 100 MG ORAL DAILY, (Reported) Folic Acid* (Folic Acid*), 1 MG ORAL DAILY, (Reported) Heparin Sod (Porcine) (Heparin Sodium*), 5,000 UNITS SUBQ DAILY, (Reported) Lamotrigine* (Lamictal*), 25 MG ORAL DAILY, (Reported) Lisinopril (Lisinopril*), 20 MG ORAL BID, (Reported) Memantine Hcl* (Namenda*), 5 MG ORAL TWICE A DAY, (Reported) Multivitamin With Minerals (Multivitamins With Minerals*), 1 TAB ORAL DAILY, (Reported) Olanzapine* (Zyprexa*), 5 MG ORAL DAILY, (Reported) Sennosides (Senna), 2 TAB PO BEDTIME, (Reported) Scheduled PRN Acetaminophen* (Acetaminophen 325MG Tablet*), 650 MG ORAL Q4H PRN for Fever/Headache/Mild Pain, (Reported) Bisacodyl (Dulcolax), 10 MG RC for Constipation, (Reported) Hydralazine Hcl* (Hydralazine Hcl*), 10 MG ORAL Q4HR PRN for SBP > 160 , (Reported) Ipratropium/Albuterol Sulfate (DuoNeb 0.5-3(2.5)mg/3ml), 1 UNIT HHN EVERY 6 HOURS PRN for Shortness of Breath, (Reported) Magnesium Hydroxide* (Milk Of Magnesia*), 30 ML ORAL EVERY 6 HOURS PRN for Constipation, (Reported) Na Phos,M-B/Na Phos,Di-Ba* (Fleet Enema*), 133 ML RECTAL DAILY PRN for Constipation, (Reported) Nitroglycerin 0.4MG table* (Nitroglycerin*), 0.4 MG SL .Q5MIN X 3 DOSES PRN for CHEST PAIN, (Reported) Miscellaneous Medications Insulin Lispro (Humalog), 0 SUBQ, (Reported) Discontinued Medications Ascorbic Acid* (Vitamin C*), 500 MG ORAL DAILY, (Reported) Discontinued Reason: Pt stopped taking med Benazepril Hcl* (Lotensin*), 20 MG ORAL BID, (Reported) Discontinued Reason: Pt stopped taking med Calcium Carbonate/Vitamin D3 (Calcium 500 + Vit D 200 Tablet), 1 EACH PO BID, (Reported) Discontinued Reason: Pt stopped taking med Cranberry Extract (Cranberry), 425 MG PO, (Reported) Discontinued Reason: Pt stopped taking med Escitalopram Oxalate* (Lexapro*), 10 MG ORAL DAILY, (Reported) Discontinued Reason: Pt stopped taking med Folic Acid/Vitamin B Comp W-C (Sarah-Ruben Tablet), 0.8 MG PO DAILY, (Reported) Discontinued Reason: Pt stopped taking med Insulin Aspart* (Novolog*), 0 SUBQ BEFORE MEALS AND HS, (Reported) Discontinued Reason: Pt stopped taking med Lamotrigine* (Lamictal*), 25 MG ORAL DAILY, (Reported) Discontinued Reason: Pt stopped taking med Levofloxacin* (Levaquin*), 750 MG ORAL DAILY, (Reported) Discontinued Reason: Pt stopped taking med Lisinopril* (Lisinopril*), 20 MG ORAL DAILY, (Reported) Discontinued Reason: Prescription changed Lorazepam* (Ativan*), 0.5 MG ORAL EVERY 6 HOURS, (Reported) Discontinued Reason: Pt stopped taking med Memantine Hcl* (Namenda*), 5 MG ORAL DAILY, (Reported) Discontinued Reason: Pt stopped taking med Olanzapine* (Zyprexa*), 5 MG ORAL HS, (Reported) Discontinued Reason: Pt stopped taking med Temazepam* (Restoril*), 15 MG ORAL BEDTIME PRN for Insomnia, (Reported) Discontinued Reason: Pt stopped taking med Vitamin B Cmplx/Vit C/Folic AC (Nephro-Ruben Tablet), 1 TAB ORAL DAILY, (Reported ) Discontinued Reason: Pt stopped taking med Objective Data Height (Feet): 6 Height (Inches): 0.00 Weight (Pounds): 148 Assessment/Plan Assessment/Plan: Continue the patient on Lamictal, Zyprexa, Ativan and Namenda. 20min of insight oriented psychotherapy to help him recognize his psychical and cogintive deficits so that he has less depression and better impulse control. Diagnosis [place] I: Schizoaffective bipolar type rule out major depressive disorder severe recurrent with psychotic features Dakota Monroe MD Apr 30, 2020 08:10
--- NOTE | 2020-04-30 08:15 | NUR ---
RD ASSESSMENT & RECOMMENDATIONS SEE CARE ACTIVITY FOR COMPLETE ASSESSMENT DAILY ESTIMATED NEEDS: Needs based on DM, Cardiac (67.3kg) 25-35 kcals/kg 7688-5559 total kcals 1.25-1.5 g protein/kg 84-101 g total protein 25-30 mL/kg 4783-8734 total fluid mLs NUTRITION DIAGNOSIS: Difficulty chewing/swallowing r/t dysphagia s/p CVA as evidenced by pt NPO, now on NGT feeds. CURRENT TF: Vital 1.2 @60ml/hr ENTERAL NUTRITION RECOMMENDATIONS: Glucerna 1.2 to goal of 60ml/hr x24 hrs to provide 1440ml, 1728 kcal, 86g pro, 1158ml free H2O - TF change to Glucerna 1.2, start @30ml/hr, advance as tolerated 10ml/hr q4-6 hrs to gaol - Flush per MD, HOB over 30 degrees. ADDITIONAL RECOMMENDATIONS: 1) Maintain calibrated bed scale wts 2) Skin integrity: Add LLOYD BID + Vit C 250mg qdaily 3) Replete lytes as needed 4) F/up w/ consultant rn eval- now on NGT feeds 5) Monitor BG and PO intake, need for carb control diet .
--- NOTE | 2020-04-30 08:40 | General Progress Note ---
Subjective Constitutional: Reports: weakness Allergies: Coded Allergies: No Known Allergies (Unverified , 06/11/17) All Systems: reviewed and negative except above Subjective bipap sleepy in bed Objective Last 24 Hour Vital Signs Date Time Temp Pulse Resp B/P (MAP) Pulse Ox O2 Delivery O2 Flow Rate FiO2 04/30/20 08:00 70 04/30/20 07:40 98 Bi-Pap 70 04/30/20 07:10 68 17 98 70 04/30/20 05:10 74 16 100 100 04/30/20 04:00 84 04/30/20 04:00 98.1 75 24 126/95 (105) 99 04/30/20 04:00 35 04/30/20 04:00 Venturi Mask 12.0 04/30/20 03:15 74 16 99 100 04/30/20 01:42 87 25 97 100 04/30/20 00:00 98.4 85 24 126/50 (75) 100 04/30/20 00:00 35 04/30/20 00:00 Venturi Mask 12.0 04/30/20 00:00 79 04/29/20 20:00 Venturi Mask 12.0 04/29/20 20:00 97.9 83 20 123/53 (76) 100 04/29/20 20:00 35 04/29/20 19:39 100 Venturi Mask 10.0 50 04/29/20 16:00 82 04/29/20 16:00 Venturi Mask 12.0 04/29/20 16:00 35 04/29/20 16:00 97.3 76 22 115/71 (86) 100 04/29/20 12:00 35 04/29/20 12:00 91 04/29/20 12:00 97.8 90 22 116/62 (80) 100 04/29/20 12:00 Venturi Mask 12.0 04/29/20 09:00 35 Intake and Output 04/29/20 04/30/20 19:00 07:00 Intake Total 1586.853 ml 1890.000 ml Output Total 400 ml 700 ml Balance 1186.853 ml 1190.000 ml Free Water 900 ml 900 ml IV Total 26.853 ml 330.000 ml Tube Feeding 660 ml 660 ml Output Urine Total 400 ml 700 ml Laboratory Tests 04/29/20 12:03: POC Whole Blood Glucose 129H 11/12/20 12:10: Activated Partial Thromboplast Time 70H 04/29/20 13:25: Arterial Blood pH 7.490H, Arterial Blood Partial Pressure CO2 28.9L, Arterial Blood Partial Pressure O2 56.3L, Arterial Blood HCO3 21.5L, Arterial Blood Oxygen Saturation 92.2L, Arterial Blood Base Excess -1.3, Pepe Test Positive 04/29/20 17:16: POC Whole Blood Glucose 95 04/29/20 20:41: POC Whole Blood Glucose [Pending] 04/30/20 01:00: Vancomycin Level Trough 19.2H 04/30/20 01:31: Arterial Blood pH 7.430, Arterial Blood Partial Pressure CO2 32.7L, Arterial Blood Partial Pressure O2 44.1*L, Arterial Blood HCO3 21.2L, Arterial Blood Oxygen Saturation 81.9*L, Arterial Blood Base Excess -2.5L, Pepe Test Positive 04/30/20 04:00: White Blood Count 6.4, Red Blood Count 2.77L, Hemoglobin 8.6L, Hematocrit 27.3L, Mean Corpuscular Volume 99, Mean Corpuscular Hemoglobin 31.0, Mean Corpuscular Hemoglobin Concent 31.4L, Red Cell Distribution Width 13.9, Platelet Count 120L, Mean Platelet Volume 7.1, Neutrophils (%) (Auto) 72.7, Lymphocytes (%) (Auto) 15.4L, Monocytes (%) (Auto) 6.9, Eosinophils (%) (Auto) 4.6H, Basophils (%) (Auto) 0.4, Sodium Level 146H, Potassium Level 3.5, Chloride Level 117H, Carbon Dioxide Level 22, Blood Urea Nitrogen 24H, Creatinine 0.9, Estimat Glomerular Filtration Rate > 60, Glucose Level 125H, Calcium Level 7.4L, Phosphorus Level 2.2L, Magnesium Level 1.9, Total Bilirubin 0.4, Aspartate Amino Transf (AST/SGOT) 55H, Alanine Aminotransferase (ALT/SGPT) 26, Alkaline Phosphatase 95, Total Protein 4.3L, Albumin 1.2L, Globulin 3.1, Albumin/Globulin Ratio 0.4L 04/30/20 05:52: POC Whole Blood Glucose 114H Height (Feet): 6 Height (Inches): 0.00 Weight (Pounds): 148 General Appearance: lethargic EENT: normal ENT inspection Neck: normal alignment Cardiovascular: normal peripheral pulses, normal rate, regular rhythm Respiratory/Chest: chest wall non-tender, lungs clear, normal breath sounds Abdomen: normal bowel sounds, non tender, soft Extremities: normal inspection Edema: no edema noted Arm (L), no edema noted Arm (R), no edema noted Leg (L), no edema noted Leg (R), no edema noted Pedal (L), no edema noted Pedal (R), no edema noted Generalized Neurologic: motor weakness Skin: normal pigmentation, warm/dry Assessment/Plan Problem List: (1) UTI (urinary tract infection) ICD Codes: N39.0 - Urinary tract infection, site not specified SNOMED: 64557458 (2) CVA (cerebral vascular accident) ICD Codes: I63.9 - Cerebral infarction, unspecified SNOMED: 113163506 (3) KORY (acute kidney injury) ICD Codes: N17.9 - Acute kidney failure, unspecified SNOMED: 0230948, 10121307 (4) HTN (hypertension) ICD Codes: I10 - Essential (primary) hypertension SNOMED: 52908754 (5) Diabetes ICD Codes: E11.9 - Type 2 diabetes mellitus without complications SNOMED: 21479837 (6) Dehydration ICD Codes: E86.0 - Dehydration SNOMED: 80805683 (7) Hypernatremia ICD Codes: E87.0 - Hyperosmolality and hypernatremia SNOMED: 66633796 (8) Acute respiratory failure ICD Codes: J96.00 - Acute respiratory failure, unspecified whether with hypoxia or hypercapnia SNOMED: 47766406 Status: unchanged Assessment/Plan: o2 pulm tx abx pt diet cbc bmp am aru and ltach German Villanueva DO Apr 30, 2020 08:40
[2020-04-30] MEDS: Eliquis 5mg tablet ORAL SCH ×2 (08:45→17:06)
[2020-04-30] MEDS: Memantine 10mg tab ORAL SCH ×2 (08:46→17:07)
[2020-04-30] MEDS: Potassium Phosphate 15mm/250ml 250 ML IVPB SCH ×2 (08:47→12:38)
--- NOTE | 2020-04-30 08:47 | Hematology/Onc Progress Note ---
Assessment/Plan Assessment/Plan # Bilateral pulmonary emboli on cta as well as Dvt on duplex --> Equivocal evidence of right heart strain; RV /LV ratio around 0.5 but is somewhat difficult to assess due to ventricular muscle hypertrophy --> duplex Positive for bilateral lower extremity deep venous thrombosis, as described --> continue on heparin gtt until stabilizes, then consider noac --> 04/29 started on eliquis # Anemia of chronic disease, anemia panel is noted --> r.o bleed now that is on hep gtt --> hgb 10-->8.7-->8.5 -> no hemolysis is noted # Leukocytosis due to sepsis/uti --> ABX Cefepime/vanc --> smear is reviewed # COPD. --> breathing rx as needed # Diabetes mellitus --> iss, accuchecks qac and qhs # Schizophrenia. --> per psych recs # History of CVA with left hemiparesis. # Dementia. # Dysphagia with ngt # Folate def # Dvt ppx eliquis Appreciate consultation and jorge l Coon Subjective Constitutional: Denies: no symptoms, chills, fever, malaise, weakness, other HEENT: Denies: no symptoms, eye pain, blurred vision, tearing, double vision, ear pain, ear discharge, nose pain, nose congestion, throat pain, throat swelling, mouth pain, mouth swelling, other Cardiovascular: Denies: no symptoms, chest pain, edema, irregular heart rate, lightheadedness, palpitations, syncope, other Respiratory: Denies: no symptoms, cough, shortness of breath, SOB with excertion, SOB at rest, sputum, wheezing, other Gastrointestinal/Abdominal: Denies: no symptoms, abdomen distended, abdominal pain, black stools, tarry stools, blood in stool, constipated, diarrhea, difficulty swallowing, nausea, poor appetite, poor fluid intake, rectal bleeding, vomiting, other Neurologic/Psychiatric: Denies: no symptoms, anxiety, depressed, emotional problems, headache, numbness, paresthesia, pre-existing deficit, seizure, tingling, tremors, weakness, other Endocrine: Denies: no symptoms, excessive sweating, flushing, intolerance to cold, intolerance to heat, increased hunger, increased thirst, increased urine, unexplained weight gain, unexplained weight loss, other Allergies: Coded Allergies: No Known Allergies (Unverified , 06/11/17) Subjective 04/29 remains on heparin gtt, labs noted, no bleeding, h/h stable, on folate 04/30 meds noted, changed to apixaban, labs noted Objective Objective Current Medications Medications (Trade) Dose Ordered Sig/Lopez Route PRN Reason Start Time Stop Time Status Last Admin Dose Admin Acetaminophen (Tylenol) 650 mg Q4H PRN ORAL fever 04/25/20 00:00 05/25/20 00:00 Apixaban (Eliquis) 5 mg BID ORAL 05/06/20 18:00 08/04/20 17:59 Apixaban (Eliquis) 10 mg BID ORAL 04/29/20 18:00 05/06/20 09:01 04/29/20 17:22 Cefepime HCl 1 gm/ Dextrose 55 ml @ 110 mls/hr EVERY 12 HOURS IV 04/25/20 09:00 05/02/20 08:59 04/29/20 20:39 Chlorhexidine Gluconate (Arpita-Hex 2%) 1 applic DAILY@2000 TOPIC 04/29/20 20:00 07/28/20 19:59 04/29/20 20:38 Dextrose (Dextrose 50%) 25 ml Q30M PRN IV Hypoglycemia 04/25/20 00:00 07/24/20 00:00 Dextrose (Dextrose 50%) 50 ml Q30M PRN IV Hypoglycemia 04/25/20 00:00 07/24/20 00:00 Folic Acid (Folate) 1 mg DAILY ORAL 04/29/20 09:00 05/29/20 08:59 04/29/20 08:31 Heparin Sodium/ Sodium Chloride (Heparin 1000 units/500ml Premix) 1,000 unit ONCE PRN IV PICC 04/28/20 11:45 04/30/20 11:44 Insulin Aspart (NovoLOG) BEFORE MEALS AND HS SUBQ 04/25/20 06:30 07/24/20 06:29 04/28/20 06:22 Lamotrigine (LaMICtal) 25 mg DAILY ORAL 04/25/20 09:00 05/25/20 08:59 04/29/20 08:31 Lidocaine HCl (Xylocaine 1% 30ml) 30 ml ONCE PRN INJ PICC 04/28/20 11:45 04/30/20 11:44 Lorazepam (Ativan 2mg/ml 1ml) 0.5 mg Q4H PRN IV Agitation 04/25/20 01:00 05/02/20 00:59 Memantine (Namenda) 5 mg TWICE A DAY ORAL 04/25/20 09:00 05/25/20 08:59 04/29/20 17:22 Olanzapine (ZyPREXA) 5 mg DAILY ORAL 04/25/20 09:00 06/09/20 08:59 04/29/20 08:31 Ondansetron HCl (Zofran) 4 mg Q6H PRN IVP Nausea & Vomiting 04/25/20 00:00 05/25/20 00:00 Polyethylene Glycol (Miralax) 17 gm DAILYPRN PRN ORAL Constipation 04/25/20 00:00 05/25/20 00:00 Potassium Phosphate 250 ml @ 62.5 mls/hr Q4H IVPB 04/30/20 09:00 04/30/20 16:59 Quetiapine Fumarate (SEROqueL) 50 mg Q12HR ORAL 04/27/20 11:30 06/11/20 11:29 04/29/20 20:39 Temazepam (Restoril) 15 mg HSPRN PRN ORAL Insomnia 04/25/20 00:00 05/02/20 00:00 Vancomycin HCl (Vanco pharmacy to dose) 1 ea DAILY PRN MISC Per rx protocol 04/25/20 00:00 05/25/20 00:00 Vancomycin HCl 750 mg/Sodium Chloride 275 ml @ 183.333 mls/hr Q12H IVPB 04/28/20 14:00 05/03/20 13:59 04/30/20 03:31 Last 24 Hour Vital Signs Date Time Temp Pulse Resp B/P (MAP) Pulse Ox O2 Delivery O2 Flow Rate FiO2 04/30/20 08:00 70 04/30/20 07:40 98 Bi-Pap 70 04/30/20 07:10 68 17 98 70 04/30/20 05:10 74 16 100 100 04/30/20 04:00 84 04/30/20 04:00 98.1 75 24 126/95 (105) 99 04/30/20 04:00 35 04/30/20 04:00 Venturi Mask 12.0 04/30/20 03:15 74 16 99 100 04/30/20 01:42 87 25 97 100 04/30/20 00:00 98.4 85 24 126/50 (75) 100 04/30/20 00:00 35 04/30/20 00:00 Venturi Mask 12.0 04/30/20 00:00 79 04/29/20 20:00 Venturi Mask 12.0 04/29/20 20:00 97.9 83 20 123/53 (76) 100 04/29/20 20:00 35 04/29/20 19:39 100 Venturi Mask 10.0 50 04/29/20 16:00 82 04/29/20 16:00 Venturi Mask 12.0 04/29/20 16:00 35 04/29/20 16:00 97.3 76 22 115/71 (86) 100 04/29/20 12:00 35 04/29/20 12:00 91 04/29/20 12:00 97.8 90 22 116/62 (80) 100 04/29/20 12:00 Venturi Mask 12.0 04/29/20 09:00 35 04/29/20 08:05 79 04/29/20 08:00 50 04/29/20 08:00 97.8 94 22 126/73 (90) 100 04/29/20 08:00 Venturi Mask 12.0 04/29/20 04:00 15.0 04/29/20 04:00 Non-Rebreather 15.0 04/29/20 04:00 98.6 76 24 104/67 (79) 100 04/29/20 03:39 74 04/29/20 00:00 15.0 04/29/20 00:00 Non-Rebreather 15.0 04/29/20 00:00 98.2 70 24 112/55 (74) 100 04/29/20 00:00 82 04/28/20 20:00 15.0 04/28/20 20:00 Non-Rebreather 15.0 04/28/20 20:00 98.2 78 20 127/70 (89) 100 04/28/20 19:18 100 Non-Rebreather 15.0 100 04/28/20 19:16 75 04/28/20 16:00 97.9 87 20 131/79 (96) 100 04/28/20 16:00 15.0 04/28/20 16:00 87 04/28/20 16:00 Non-Rebreather 15.0 04/28/20 12:00 97.9 81 20 141/68 (92) 100 04/28/20 12:00 81 04/28/20 12:00 Non-Rebreather 15.0 04/28/20 12:00 15.0 Intake and Output 04/29/20 04/30/20 19:00 07:00 Intake Total 1586.853 ml 1890.000 ml Output Total 400 ml 700 ml Balance 1186.853 ml 1190.000 ml Free Water 900 ml 900 ml IV Total 26.853 ml 330.000 ml Tube Feeding 660 ml 660 ml Output Urine Total 400 ml 700 ml Labs Test 04/27/20 12:05 04/27/20 16:56 04/27/20 20:25 04/27/20 20:34 Activated Partial Thromboplast Time 26 SEC (23-33) 73 SEC (23-33) POC Whole Blood Glucose 135 MG/DL (74-106) 129 MG/DL (74-106) Test 04/28/20 01:00 04/28/20 04:00 04/28/20 05:57 04/28/20 06:01 Vancomycin Level Trough 13.8 ug/mL (5.0-12.0) White Blood Count 6.8 K/UL (4.8-10.8) Red Blood Count 2.81 M/UL (4.70-6.10) Hemoglobin 8.7 G/DL (14.2-18.0) Hematocrit 27.4 % (42.0-52.0) Mean Corpuscular Volume 98 FL (80-99) Mean Corpuscular Hemoglobin 31.0 PG (27.0-31.0) Mean Corpuscular Hemoglobin Concent 31.8 G/DL (32.0-36.0) Red Cell Distribution Width 13.8 % (11.6-14.8) Platelet Count 116 K/UL (150-450) Mean Platelet Volume 6.5 FL (6.5-10.1) Neutrophils (%) (Auto) 70.9 % (45.0-75.0) Lymphocytes (%) (Auto) 16.0 % (20.0-45.0) Monocytes (%) (Auto) 5.7 % (1.0-10.0) Eosinophils (%) (Auto) 7.2 % (0.0-3.0) Basophils (%) (Auto) 0.2 % (0.0-2.0) Erythrocyte Sedimentation Rate 90 MM/HR (0-20) Activated Partial Thromboplast Time 76 SEC (23-33) Stool Occult Blood Negative (NEGATIVE) Sodium Level 150 MMOL/L (136-145) Potassium Level 3.4 MMOL/L (3.5-5.1) Chloride Level 121 MMOL/L (98-107) Carbon Dioxide Level 22 MMOL/L (21-32) Anion Gap 7 mmol/L (5-15) Blood Urea Nitrogen 30 mg/dL (7-18) Creatinine 1.0 MG/DL (0.55-1.30) Estimat Glomerular Filtration Rate > 60 mL/min (>60) Glucose Level 156 MG/DL (74-106) Uric Acid 3.4 MG/DL (2.6-7.2) Calcium Level 7.1 MG/DL (8.5-10.1) Phosphorus Level 2.5 MG/DL (2.5-4.9) Magnesium Level 2.0 MG/DL (1.8-2.4) Total Bilirubin 0.3 MG/DL (0.2-1.0) Aspartate Amino Transf (AST/SGOT) 22 U/L (15-37) Alanine Aminotransferase (ALT/SGPT) 17 U/L (12-78) Alkaline Phosphatase 85 U/L (46-116) C-Reactive Protein, Quantitative 18.2 mg/dL (0.00-0.90) Total Protein 4.2 G/DL (6.4-8.2) Albumin 1.3 G/DL (3.4-5.0) Globulin 2.9 g/dL Albumin/Globulin Ratio 0.4 (1.0-2.7) Hepatitis A IgM Antibody Negative (Negative) Hepatitis B Surface Antigen Negative (Negative) Hepatitis B Core IgM Antibody Negative (Negative) Hepatitis C Antibody <0.1 s/co ratio HIV (1&2) Antibody Rapid Negative (NEGATIVE) POC Whole Blood Glucose 145 MG/DL (74-106) Test 04/28/20 12:14 04/28/20 18:16 04/28/20 21:00 04/29/20 04:21 POC Whole Blood Glucose 99 MG/DL (74-106) 115 MG/DL (74-106) White Blood Count 6.6 K/UL (4.8-10.8) Red Blood Count 2.78 M/UL (4.70-6.10) Hemoglobin 8.5 G/DL (14.2-18.0) Hematocrit 26.5 % (42.0-52.0) Mean Corpuscular Volume 96 FL (80-99) Mean Corpuscular Hemoglobin 30.6 PG (27.0-31.0) Mean Corpuscular Hemoglobin Concent 32.0 G/DL (32.0-36.0) Red Cell Distribution Width 14.0 % (11.6-14.8) Platelet Count 96 K/UL (150-450) Mean Platelet Volume 6.7 FL (6.5-10.1) Neutrophils (%) (Auto) % (45.0-75.0) Lymphocytes (%) (Auto) % (20.0-45.0) Monocytes (%) (Auto) % (1.0-10.0) Eosinophils (%) (Auto) % (0.0-3.0) Basophils (%) (Auto) % (0.0-2.0) Activated Partial Thromboplast Time 63 SEC (23-33) Sodium Level 145 MMOL/L (136-145) Potassium Level 3.5 MMOL/L (3.5-5.1) Chloride Level 117 MMOL/L (98-107) Carbon Dioxide Level 25 MMOL/L (21-32) Anion Gap 3 mmol/L (5-15) Blood Urea Nitrogen 25 mg/dL (7-18) Creatinine 0.8 MG/DL (0.55-1.30) Estimat Glomerular Filtration Rate > 60 mL/min (>60) Glucose Level 125 MG/DL (74-106) Calcium Level 6.9 MG/DL (8.5-10.1) Total Bilirubin 0.4 MG/DL (0.2-1.0) Aspartate Amino Transf (AST/SGOT) 35 U/L (15-37) Alanine Aminotransferase (ALT/SGPT) 25 U/L (12-78) Alkaline Phosphatase 86 U/L (46-116) Pro-B-Type Natriuretic Peptide 1530 pg/mL (0-125) Total Protein 4.0 G/DL (6.4-8.2) Albumin 1.2 G/DL (3.4-5.0) Globulin 2.8 g/dL Albumin/Globulin Ratio 0.4 (1.0-2.7) Test 04/29/20 06:24 04/29/20 12:03 04/29/20 12:10 04/29/20 13:25 POC Whole Blood Glucose 129 MG/DL (74-106) Activated Partial Thromboplast Time 70 SEC (23-33) Arterial Blood pH 7.490 (7.350-7.450) Arterial Blood Partial Pressure CO2 28.9 mmHg (35.0-45.0) Arterial Blood Partial Pressure O2 56.3 mmHg (75.0-100.0) Arterial Blood HCO3 21.5 mmol/L (22.0-26.0) Arterial Blood Oxygen Saturation 92.2 % (95-100) Arterial Blood Base Excess -1.3 (-2-2) Pepe Test Positive Test 04/29/20 17:16 04/29/20 20:41 04/30/20 01:00 04/30/20 01:31 POC Whole Blood Glucose 95 MG/DL (74-106) Vancomycin Level Trough 19.2 ug/mL (5.0-12.0) Arterial Blood pH 7.430 (7.350-7.450) Arterial Blood Partial Pressure CO2 32.7 mmHg (35.0-45.0) Arterial Blood Partial Pressure O2 44.1 mmHg (75.0-100.0) Arterial Blood HCO3 21.2 mmol/L (22.0-26.0) Arterial Blood Oxygen Saturation 81.9 % (95-100) Arterial Blood Base Excess -2.5 (-2-2) Pepe Test Positive Test 04/30/20 04:00 04/30/20 05:52 White Blood Count 6.4 K/UL (4.8-10.8) Red Blood Count 2.77 M/UL (4.70-6.10) Hemoglobin 8.6 G/DL (14.2-18.0) Hematocrit 27.3 % (42.0-52.0) Mean Corpuscular Volume 99 FL (80-99) Mean Corpuscular Hemoglobin 31.0 PG (27.0-31.0) Mean Corpuscular Hemoglobin Concent 31.4 G/DL (32.0-36.0) Red Cell Distribution Width 13.9 % (11.6-14.8) Platelet Count 120 K/UL (150-450) Mean Platelet Volume 7.1 FL (6.5-10.1) Neutrophils (%) (Auto) 72.7 % (45.0-75.0) Lymphocytes (%) (Auto) 15.4 % (20.0-45.0) Monocytes (%) (Auto) 6.9 % (1.0-10.0) Eosinophils (%) (Auto) 4.6 % (0.0-3.0) Basophils (%) (Auto) 0.4 % (0.0-2.0) Sodium Level 146 MMOL/L (136-145) Potassium Level 3.5 MMOL/L (3.5-5.1) Chloride Level 117 MMOL/L (98-107) Carbon Dioxide Level 22 MMOL/L (21-32) Blood Urea Nitrogen 24 mg/dL (7-18) Creatinine 0.9 MG/DL (0.55-1.30) Estimat Glomerular Filtration Rate > 60 mL/min (>60) Glucose Level 125 MG/DL (74-106) Calcium Level 7.4 MG/DL (8.5-10.1) Phosphorus Level 2.2 MG/DL (2.5-4.9) Magnesium Level 1.9 MG/DL (1.8-2.4) Total Bilirubin 0.4 MG/DL (0.2-1.0) Aspartate Amino Transf (AST/SGOT) 55 U/L (15-37) Alanine Aminotransferase (ALT/SGPT) 26 U/L (12-78) Alkaline Phosphatase 95 U/L (46-116) Total Protein 4.3 G/DL (6.4-8.2) Albumin 1.2 G/DL (3.4-5.0) Globulin 3.1 g/dL Albumin/Globulin Ratio 0.4 (1.0-2.7) POC Whole Blood Glucose 114 MG/DL (74-106) Height (Feet): 6 Height (Inches): 0.00 Weight (Pounds): 148 Neck: supple Cardiovascular: regular rhythm Respiratory/Chest: no accessory muscle use Abdomen: no mass Extremities: normal inspection Neurologic: no motor/sensory deficits Skin: warm/dry Sree Dubon MD Apr 30, 2020 08:47
[2020-04-30] MEDS: Cefepime HCl 1 GM in D5W 55 ML IV SCH ×2 (08:48→20:06)
--- NOTE | 2020-04-30 08:52 | Nephrology Progress Note ---
Assessment/Plan Problem List: (1) KORY (acute kidney injury) (2) Hypernatremia (3) Dehydration (4) Acute respiratory failure Assessment Patient presents with acute hypoxic respiratory failure requiring BiPAP Sepsis lactic acidosis KORY Dehydration, hypernatremia History of COPD Anemia Low BMI, malnutrition. BMI of 20.1 History of CVA History of diabetes mellitus Plan April 30: Serum sodium 146. Low phosphorus replaced. Continue pulmonary support and per consultants. April 29: Serum sodium normalized. Electrolytes within normal limit. Remains on nonrebreather mask. Continue per consultants. April 28: Continue D5W. Abnormal electrolytes addressed. Continue per consultants. Remains full code. Remains on nonrebreather mask. April 27: Continue D5W. Continue pulmonary support. Monitor renal parameters and electrolytes. Continue per consultants. Patient full code. Remains on nonrebreathing mask. Contreras catheter IV D5W Monitor electrolytes and renal parameters Antibiotics Avoid nephrotoxic's 2D echocardiogram Per orders Subjective ROS Limited/Unobtainable: Yes Objective Objective Last 24 Hour Vital Signs Date Time Temp Pulse Resp B/P (MAP) Pulse Ox O2 Delivery O2 Flow Rate FiO2 04/30/20 08:00 70 04/30/20 07:40 98 Bi-Pap 70 04/30/20 07:10 68 17 98 70 04/30/20 05:10 74 16 100 100 04/30/20 04:00 84 04/30/20 04:00 98.1 75 24 126/95 (105) 99 04/30/20 04:00 35 04/30/20 04:00 Venturi Mask 12.0 04/30/20 03:15 74 16 99 100 04/30/20 01:42 87 25 97 100 04/30/20 00:00 98.4 85 24 126/50 (75) 100 04/30/20 00:00 35 04/30/20 00:00 Venturi Mask 12.0 04/30/20 00:00 79 04/29/20 20:00 Venturi Mask 12.0 04/29/20 20:00 97.9 83 20 123/53 (76) 100 04/29/20 20:00 35 04/29/20 19:39 100 Venturi Mask 10.0 50 04/29/20 16:00 82 04/29/20 16:00 Venturi Mask 12.0 04/29/20 16:00 35 04/29/20 16:00 97.3 76 22 115/71 (86) 100 04/29/20 12:00 35 04/29/20 12:00 91 04/29/20 12:00 97.8 90 22 116/62 (80) 100 04/29/20 12:00 Venturi Mask 12.0 04/29/20 09:00 35 Intake and Output 04/29/20 04/30/20 19:00 07:00 Intake Total 1586.853 ml 1890.000 ml Output Total 400 ml 700 ml Balance 1186.853 ml 1190.000 ml Free Water 900 ml 900 ml IV Total 26.853 ml 330.000 ml Tube Feeding 660 ml 660 ml Output Urine Total 400 ml 700 ml Laboratory Tests 04/29/20 12:03: POC Whole Blood Glucose 129H 04/29/20 12:10: Activated Partial Thromboplast Time 70H 04/29/20 13:25: Arterial Blood pH 7.490H, Arterial Blood Partial Pressure CO2 28.9L, Arterial Blood Partial Pressure O2 56.3L, Arterial Blood HCO3 21.5L, Arterial Blood Oxygen Saturation 92.2L, Arterial Blood Base Excess -1.3, Pepe Test Positive 04/29/20 17:16: POC Whole Blood Glucose 95 04/29/20 20:41: POC Whole Blood Glucose [Pending] 04/30/20 01:00: Vancomycin Level Trough 19.2H 04/30/20 01:31: Arterial Blood pH 7.430, Arterial Blood Partial Pressure CO2 32.7L, Arterial Blood Partial Pressure O2 44.1*L, Arterial Blood HCO3 21.2L, Arterial Blood Oxygen Saturation 81.9*L, Arterial Blood Base Excess -2.5L, Pepe Test Positive 04/30/20 04:00: White Blood Count 6.4, Red Blood Count 2.77L, Hemoglobin 8.6L, Hematocrit 27.3L, Mean Corpuscular Volume 99, Mean Corpuscular Hemoglobin 31.0, Mean Corpuscular Hemoglobin Concent 31.4L, Red Cell Distribution Width 13.9, Platelet Count 120L, Mean Platelet Volume 7.1, Neutrophils (%) (Auto) 72.7, Lymphocytes (%) (Auto) 15.4L, Monocytes (%) (Auto) 6.9, Eosinophils (%) (Auto) 4.6H, Basophils (%) (Auto) 0.4, Sodium Level 146H, Potassium Level 3.5, Chloride Level 117H, Carbon Dioxide Level 22, Blood Urea Nitrogen 24H, Creatinine 0.9, Estimat Glomerular Filtration Rate > 60, Glucose Level 125H, Calcium Level 7.4L, Phosphorus Level 2.2L, Magnesium Level 1.9, Total Bilirubin 0.4, Aspartate Amino Transf (AST/SGOT) 55H, Alanine Aminotransferase (ALT/SGPT) 26, Alkaline Phosphatase 95, Total Protein 4.3L, Albumin 1.2L, Globulin 3.1, Albumin/Globulin Ratio 0.4L 04/30/20 05:52: POC Whole Blood Glucose 114H Height (Feet): 6 Height (Inches): 0.00 Weight (Pounds): 148 General Appearance: no apparent distress, lethargic EENT: other - Remains on Venturi mask and or BiPAP Cardiovascular: normal rate Respiratory/Chest: decreased breath sounds Abdomen: distended Maximino Castillo MD Apr 30, 2020 08:52
--- NOTE | 2020-04-30 09:00 | NUR ---
NURSE NOTES: Tube feeds remain off, to prevent aspiration, d/t pt being on a BiPAP.
--- NOTE | 2020-04-30 09:12 | General Progress Note ---
Subjective ROS Limited/Unobtainable: No Allergies: Coded Allergies: No Known Allergies (Unverified , 06/11/17) Objective Last 24 Hour Vital Signs Date Time Temp Pulse Resp B/P (MAP) Pulse Ox O2 Delivery O2 Flow Rate FiO2 04/30/20 08:00 70 04/30/20 08:00 Bi-pap 04/30/20 08:00 98.1 72 22 128/39 (68) 100 04/30/20 07:40 98 Bi-Pap 70 04/30/20 07:10 68 17 98 70 04/30/20 05:10 74 16 100 100 04/30/20 04:00 84 04/30/20 04:00 98.1 75 24 126/95 (105) 99 04/30/20 04:00 35 04/30/20 04:00 Venturi Mask 12.0 04/30/20 03:15 74 16 99 100 04/30/20 01:42 87 25 97 100 04/30/20 00:00 98.4 85 24 126/50 (75) 100 04/30/20 00:00 35 04/30/20 00:00 Venturi Mask 12.0 04/30/20 00:00 79 04/29/20 20:00 Venturi Mask 12.0 04/29/20 20:00 97.9 83 20 123/53 (76) 100 04/29/20 20:00 35 04/29/20 19:39 100 Venturi Mask 10.0 50 04/29/20 16:00 82 04/29/20 16:00 Venturi Mask 12.0 04/29/20 16:00 35 04/29/20 16:00 97.3 76 22 115/71 (86) 100 04/29/20 12:00 35 04/29/20 12:00 91 04/29/20 12:00 97.8 90 22 116/62 (80) 100 04/29/20 12:00 Venturi Mask 12.0 Intake and Output 04/29/20 04/30/20 19:00 07:00 Intake Total 1586.853 ml 1890.000 ml Output Total 400 ml 700 ml Balance 1186.853 ml 1190.000 ml Free Water 900 ml 900 ml IV Total 26.853 ml 330.000 ml Tube Feeding 660 ml 660 ml Output Urine Total 400 ml 700 ml Laboratory Tests 04/29/20 12:03: POC Whole Blood Glucose 129H 04/29/20 12:10: Activated Partial Thromboplast Time 70H 04/29/20 13:25: Arterial Blood pH 7.490H, Arterial Blood Partial Pressure CO2 28.9L, Arterial Blood Partial Pressure O2 56.3L, Arterial Blood HCO3 21.5L, Arterial Blood Oxygen Saturation 92.2L, Arterial Blood Base Excess -1.3, Pepe Test Positive 04/29/20 17:16: POC Whole Blood Glucose 95 04/29/20 20:41: POC Whole Blood Glucose [Pending] 04/30/20 01:00: Vancomycin Level Trough 19.2H 04/30/20 01:31: Arterial Blood pH 7.430, Arterial Blood Partial Pressure CO2 32.7L, Arterial Blood Partial Pressure O2 44.1*L, Arterial Blood HCO3 21.2L, Arterial Blood Oxygen Saturation 81.9*L, Arterial Blood Base Excess -2.5L, Pepe Test Positive 04/30/20 04:00: White Blood Count 6.4, Red Blood Count 2.77L, Hemoglobin 8.6L, Hematocrit 27.3L, Mean Corpuscular Volume 99, Mean Corpuscular Hemoglobin 31.0, Mean Corpuscular Hemoglobin Concent 31.4L, Red Cell Distribution Width 13.9, Platelet Count 120L, Mean Platelet Volume 7.1, Neutrophils (%) (Auto) 72.7, Lymphocytes (%) (Auto) 15.4L, Monocytes (%) (Auto) 6.9, Eosinophils (%) (Auto) 4.6H, Basophils (%) (Auto) 0.4, Sodium Level 146H, Potassium Level 3.5, Chloride Level 117H, Carbon Dioxide Level 22, Blood Urea Nitrogen 24H, Creatinine 0.9, Estimat Glomerular Filtration Rate > 60, Glucose Level 125H, Calcium Level 7.4L, Phosphorus Level 2.2L, Magnesium Level 1.9, Total Bilirubin 0.4, Aspartate Amino Transf (AST/SGOT) 55H, Alanine Aminotransferase (ALT/SGPT) 26, Alkaline Phosphatase 95, Total Protein 4.3L, Albumin 1.2L, Globulin 3.1, Albumin/Globulin Ratio 0.4L 04/30/20 05:52: POC Whole Blood Glucose 114H Height (Feet): 6 Height (Inches): 0.00 Weight (Pounds): 148 General Appearance: no apparent distress EENT: normal ENT inspection Neck: supple Cardiovascular: normal rate Respiratory/Chest: decreased breath sounds Abdomen: normal bowel sounds, non tender, soft Extremities: non-tender Assessment/Plan Status: unchanged Assessment/Plan: 1. COPD. 2. Diabetes. 3. Schizophrenia. 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 5. Dementia. 6. Anemia 7. Dysphagia 8. Folate def NGTF folate not stable for PEG on BIPAP neg stool ob will Nathan Kemp MD Apr 30, 2020 09:12
--- NOTE | 2020-04-30 10:25 | NUR ---
NURSE NOTES: Pt turned and repositioned. Pt received all of his AM medication. No residual noted from NGT. Flushed with 300mL water, as ordered.
--- NOTE | 2020-04-30 11:28 | NUR ---
Speech Note (Dysphagia) Chart reviewed, imaging study noted. previous hospitalization [facility] 04/04/2020~04/08/2020 notes reviewed (Hypernatremia, sepsis, failure to thrive, multiple wounds noted) This hospital course bilateral LE DVT, massive PE noted. CT head stable c.w multiple lacunar infarction Pt is tolerating on NG tube feeding, On BIPAP, Unsafe PO trial with aspiration risk Overall prognosis appeared to be poor, based on chart review. Previous diet was puree and nectar thick liquid at [facility]. Speech/Swallow F/U for now. I discussed with RN briefly about impression and plan. Maureen Alcaraz
--- NOTE | 2020-04-30 11:37 | NUR ---
NURSE NOTES: F/S was 117mg/dL. No insulin coverage given, as indicated.
--- NOTE | 2020-04-30 11:54 | Infectious Diseases Prog Note ---
Assessment/Plan Assessment: Sepsis UTI -u/a wbc 50-60, nit neg, leuk +1; ucx Neg Gram positive bacteremia- real vs contaminant -04/24 sp cx 1/2 S. epi; 04/26 Bcx NTD Fever; SP No leukocytosis -04/26 influenza screen neg CXR: Borderline cardiomegaly. No acute process -04/24 CXR: No acute cardiopulmonary disease. covid rapid PCR neg Acute hypoxic resp failure- SP NRB>Bipap> VM B/l DVT and PE -CTA chest: Positive for bilateral pulmonary emboli Equivocal evidence of right heart strain; RV /LV ratio around 0.5 but is somewhat difficult to assess due to ventricular muscle hypertrophy. Left basilar compressive atelectasis, pleural fluid, and possibly some consolidation. Trace right pleural fluid. Subtle mosaic perfusion pattern, nonspecific but probably represents very mild pulmonary edema. Cardiomegaly. Nasogastric tube -V. duplex: : On the right, occlusive thrombus is seen within the downstream common femoral vein, the femoral vein, popliteal vein as well as within multiple calf veins. On the left, occlusive thrombus is seen within the femoral vein and popliteal vein the common femoral vein and calf veins are patent. COPD DM2 HTN schizophrenia malnutrition CVA w/ left spastic hemiparesis vascular dementia schizoaffective-bipolar type SNF resident (Everette peterson) Plan: -COntinue empiric CEfepime #12/22 dc IV Vancomycin #6/ -f/u cx -Monitor CBC/CMP, temperatures -aspiration precautions -f/u repeat Bcx x2 Thank you for consulting [facility]. Will continue to follow along with you. Discussed with RN. Subjective Allergies: Coded Allergies: No Known Allergies (Unverified , 06/11/17) afebrile no leukocytosis BCx NTD Objective Last 24 Hour Vital Signs Date Time Temp Pulse Resp B/P (MAP) Pulse Ox O2 Delivery O2 Flow Rate FiO2 04/30/20 11:40 60 04/30/20 09:40 76 17 97 70 04/30/20 08:00 70 04/30/20 08:00 Bi-pap 04/30/20 08:00 98.1 72 22 128/39 (68) 100 04/30/20 08:00 68 04/30/20 07:40 98 Bi-Pap 70 04/30/20 07:10 68 17 98 70 04/30/20 05:10 74 16 100 100 04/30/20 04:00 84 04/30/20 04:00 98.1 75 24 126/95 (105) 99 04/30/20 04:00 35 04/30/20 04:00 Venturi Mask 12.0 04/30/20 03:15 74 16 99 100 04/30/20 01:42 87 25 97 100 04/30/20 00:00 98.4 85 24 126/50 (75) 100 04/30/20 00:00 35 04/30/20 00:00 Venturi Mask 12.0 04/30/20 00:00 79 04/29/20 20:00 Venturi Mask 12.0 04/29/20 20:00 97.9 83 20 123/53 (76) 100 04/29/20 20:00 35 04/29/20 19:39 100 Venturi Mask 10.0 50 04/29/20 16:00 82 04/29/20 16:00 Venturi Mask 12.0 04/29/20 16:00 35 04/29/20 16:00 97.3 76 22 115/71 (86) 100 04/29/20 12:00 35 04/29/20 12:00 91 04/29/20 12:00 97.8 90 22 116/62 (80) 100 04/29/20 12:00 Venturi Mask 12.0 Height (Feet): 6 Height (Inches): 0.00 Weight (Pounds): 148 GENERAL: BiPAP in place, sleeping, not talking much. CARDIOVASCULAR: No murmur. LUNGS: Poor exchange. ABDOMEN: Bowel sounds distant. EXTREMITIES: No cyanosis, clubbing, or edema. Laboratory Tests Test 04/29/20 12:03 04/29/20 12:10 04/29/20 13:25 04/29/20 17:16 POC Whole Blood Glucose 129 MG/DL (74-106) H 95 MG/DL (74-106) Activated Partial Thromboplast Time 70 SEC (23-33) H Arterial Blood pH 7.490 (7.350-7.450) Arterial Blood Partial Pressure CO2 28.9 mmHg (35.0-45.0) L Arterial Blood Partial Pressure O2 56.3 mmHg (75.0-100.0) L Arterial Blood HCO3 21.5 mmol/L (22.0-26.0) L Arterial Blood Oxygen Saturation 92.2 % (95-100) L Arterial Blood Base Excess -1.3 (-2-2) Pepe Test Positive Test 04/29/20 20:41 04/30/20 01:00 04/30/20 01:31 04/30/20 04:00 POC Whole Blood Glucose Pending Vancomycin Level Trough 19.2 ug/mL (5.0-12.0) H Arterial Blood pH 7.430 (7.350-7.450) Arterial Blood Partial Pressure CO2 32.7 mmHg (35.0-45.0) L Arterial Blood Partial Pressure O2 44.1 mmHg (75.0-100.0) Arterial Blood HCO3 21.2 mmol/L (22.0-26.0) L Arterial Blood Oxygen Saturation 81.9 % (95-100) *L Arterial Blood Base Excess -2.5 (-2-2) L Pepe Test Positive White Blood Count 6.4 K/UL (4.8-10.8) Red Blood Count 2.77 M/UL (4.70-6.10) L Hemoglobin 8.6 G/DL (14.2-18.0) L Hematocrit 27.3 % (42.0-52.0) L Mean Corpuscular Volume 99 FL (80-99) Mean Corpuscular Hemoglobin 31.0 PG (27.0-31.0) Mean Corpuscular Hemoglobin Concent 31.4 G/DL (32.0-36.0) L Red Cell Distribution Width 13.9 % (11.6-14.8) Platelet Count 120 K/UL (150-450) L Mean Platelet Volume 7.1 FL (6.5-10.1) Neutrophils (%) (Auto) 72.7 % (45.0-75.0) Lymphocytes (%) (Auto) 15.4 % (20.0-45.0) L Monocytes (%) (Auto) 6.9 % (1.0-10.0) Eosinophils (%) (Auto) 4.6 % (0.0-3.0) H Basophils (%) (Auto) 0.4 % (0.0-2.0) Sodium Level 146 MMOL/L (136-145) H Potassium Level 3.5 MMOL/L (3.5-5.1) Chloride Level 117 MMOL/L (98-107) H Carbon Dioxide Level 22 MMOL/L (21-32) Blood Urea Nitrogen 24 mg/dL (7-18) H Creatinine 0.9 MG/DL (0.55-1.30) Estimat Glomerular Filtration Rate > 60 mL/min (>60) Glucose Level 125 MG/DL (74-106) H Calcium Level 7.4 MG/DL (8.5-10.1) L Phosphorus Level 2.2 MG/DL (2.5-4.9) L Magnesium Level 1.9 MG/DL (1.8-2.4) Total Bilirubin 0.4 MG/DL (0.2-1.0) Aspartate Amino Transf (AST/SGOT) 55 U/L (15-37) H Alanine Aminotransferase (ALT/SGPT) 26 U/L (12-78) Alkaline Phosphatase 95 U/L (46-116) Total Protein 4.3 G/DL (6.4-8.2) L Albumin 1.2 G/DL (3.4-5.0) L Globulin 3.1 g/dL Albumin/Globulin Ratio 0.4 (1.0-2.7) L Test 04/30/20 05:52 04/30/20 11:10 POC Whole Blood Glucose 114 MG/DL (74-106) H 117 MG/DL (74-106) H Current Medications Medications (Trade) Dose Ordered Sig/Lopez Route PRN Reason Start Time Stop Time Status Last Admin Dose Admin Acetaminophen (Tylenol) 650 mg Q4H PRN ORAL fever 04/25/20 00:00 05/25/20 00:00 Apixaban (Eliquis) 5 mg BID ORAL 05/06/20 18:00 08/04/20 17:59 Apixaban (Eliquis) 10 mg BID ORAL 04/29/20 18:00 05/06/20 09:01 04/30/20 08:45 Cefepime HCl 1 gm/ Dextrose 55 ml @ 110 mls/hr EVERY 12 HOURS IV 04/25/20 09:00 05/02/20 08:59 04/30/20 08:48 Chlorhexidine Gluconate (Arpita-Hex 2%) 1 applic DAILY@1999 TOPIC 04/29/20 20:00 07/28/20 19:59 04/29/20 20:38 Dextrose (Dextrose 50%) 25 ml Q30M PRN IV Hypoglycemia 04/25/20 00:00 07/24/20 00:00 Dextrose (Dextrose 50%) 50 ml Q30M PRN IV Hypoglycemia 04/25/20 00:00 07/24/20 00:00 Folic Acid (Folate) 1 mg DAILY ORAL 04/29/20 09:00 05/29/20 08:59 04/30/20 08:45 Insulin Aspart (NovoLOG) BEFORE MEALS AND HS SUBQ 04/25/20 06:30 07/24/20 06:29 04/28/20 06:22 Lamotrigine (LaMICtal) 25 mg DAILY ORAL 04/25/20 09:00 05/25/20 08:59 04/30/20 08:45 Lorazepam (Ativan 2mg/ml 1ml) 0.5 mg Q4H PRN IV Agitation 04/25/20 01:00 05/02/20 00:59 Memantine (Namenda) 5 mg TWICE A DAY ORAL 04/25/20 09:00 05/25/20 08:59 04/30/20 08:46 Olanzapine (ZyPREXA) 5 mg DAILY ORAL 04/25/20 09:00 06/09/20 08:59 04/30/20 08:46 Ondansetron HCl (Zofran) 4 mg Q6H PRN IVP Nausea & Vomiting 04/25/20 00:00 05/25/20 00:00 Polyethylene Glycol (Miralax) 17 gm DAILYPRN PRN ORAL Constipation 04/25/20 00:00 05/25/20 00:00 Potassium Phosphate 250 ml @ 62.5 mls/hr Q4H IVPB 04/30/20 09:00 04/30/20 16:59 04/30/20 08:47 Quetiapine Fumarate (SEROqueL) 50 mg Q12HR ORAL 04/27/20 11:30 06/11/20 11:29 04/30/20 08:45 Temazepam (Restoril) 15 mg HSPRN PRN ORAL Insomnia 04/25/20 00:00 05/02/20 00:00 Vancomycin HCl (Vanco pharmacy to dose) 1 ea DAILY PRN MISC Per rx protocol 04/25/20 00:00 05/25/20 00:00 Vancomycin HCl 750 mg/Sodium Chloride 275 ml @ 183.333 mls/hr Q12H IVPB 04/28/20 14:00 05/03/20 13:59 04/30/20 03:31 Babita Morales M.D. Apr 30, 2020 11:54
--- NOTE | 2020-04-30 12:41 | Pulmonolgy Critical Care Note ---
Critical Care - Asmt/Plan Problems: (1) Acute respiratory failure (2) Acute massive pulmonary embolism (3) Acute deep vein thrombosis (DVT) (4) ATN (acute tubular necrosis) (5) Acute encephalopathy (6) UTI (urinary tract infection) (7) Protein-calorie malnutrition, severe (8) Diabetes (9) HTN (hypertension) (10) CVA (cerebral vascular accident) Respiratory: monitor respiratory rate, adjust FIO2, CXR Cardiac: continue to monitor HR/BP Renal: F/U I&O, keep IV fluid Infectious Disease: check cultures Gastrointestinal: continue feedings/current rate Endocrine: monitor blood sugar, continue sliding scale insulin Hematologic: transfuse if hgb<8.5 Neurologic: PRN Ativan, PRN Morphine, keep patient comfortable Affect: PRN ativan Prophylaxis: Protonix Time Spent (Minutes): 40 Notes Reviewed: clock and watch hands painter, cardio, 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 with: nurses, consultants, ed case managercampaign marketing manager - Objective Last 24 Hour Vital Signs Date Time Temp Pulse Resp B/P (MAP) Pulse Ox O2 Delivery O2 Flow Rate FiO2 04/30/20 12:12 98.7 71 17 143/67 (92) 99 04/30/20 12:00 Bi-pap 04/30/20 11:40 60 04/30/20 11:30 85 18 99 60 04/30/20 09:40 76 17 97 70 04/30/20 08:00 70 04/30/20 08:00 Bi-pap 04/30/20 08:00 98.1 72 22 128/39 (68) 100 04/30/20 08:00 68 04/30/20 07:40 98 Bi-Pap 70 04/30/20 07:10 68 17 98 70 04/30/20 05:10 74 16 100 100 04/30/20 04:00 84 04/30/20 04:00 98.1 75 24 126/95 (105) 99 04/30/20 04:00 35 04/30/20 04:00 Venturi Mask 12.0 04/30/20 03:15 74 16 99 100 04/30/20 01:42 87 25 97 100 04/30/20 00:00 98.4 85 24 126/50 (75) 100 04/30/20 00:00 35 04/30/20 00:00 Venturi Mask 12.0 04/30/20 00:00 79 04/29/20 20:00 Venturi Mask 12.0 04/29/20 20:00 97.9 83 20 123/53 (76) 100 04/29/20 20:00 35 04/29/20 19:39 100 Venturi Mask 10.0 50 04/29/20 16:00 82 04/29/20 16:00 Venturi Mask 12.0 04/29/20 16:00 35 04/29/20 16:00 97.3 76 22 115/71 (86) 100 Status: sedated, somnolent HEENT: atraumatic, normocephalic Neck: full ROM Lungs: clear Heart: HR/BP stable Abdomen: soft, non-tender, active bowel sounds Extremities: no C/C/E Accucheck: 117 Critical Care - Subjective ROS Limited/Unobtainable: Yes Condition: critical EKG Rhythm: Sinus Rhythm FI02: 60 Vent Support Breath Rate: 18 Vent Support Mode: BiLevel Sputum Amount: None Tube Feeding Amount: 0 I&O: Intake and Output 04/29/20 04/30/20 19:00 07:00 Intake Total 1586.853 ml 1890.000 ml Output Total 400 ml 700 ml Balance 1186.853 ml 1190.000 ml Free Water 900 ml 900 ml IV Total 26.853 ml 330.000 ml Tube Feeding 660 ml 660 ml Output Urine Total 400 ml 700 ml CXR: CT head only showed multiple old infarcts Labs: Laboratory Tests Test 04/29/20 13:25 04/29/20 17:16 04/29/20 20:41 04/30/20 01:00 Arterial Blood pH 7.490 (7.350-7.450) Arterial Blood Partial Pressure CO2 28.9 mmHg (35.0-45.0) L Arterial Blood Partial Pressure O2 56.3 mmHg (75.0-100.0) L Arterial Blood HCO3 21.5 mmol/L (22.0-26.0) L Arterial Blood Oxygen Saturation 92.2 % (95-100) L Arterial Blood Base Excess -1.3 (-2-2) Pepe Test Positive POC Whole Blood Glucose 95 MG/DL (74-106) Pending Vancomycin Level Trough 19.2 ug/mL (5.0-12.0) H Test 04/30/20 01:31 04/30/20 04:00 04/30/20 05:52 04/30/20 11:10 Arterial Blood pH 7.430 (7.350-7.450) Arterial Blood Partial Pressure CO2 32.7 mmHg (35.0-45.0) L Arterial Blood Partial Pressure O2 44.1 mmHg (75.0-100.0) Arterial Blood HCO3 21.2 mmol/L (22.0-26.0) L Arterial Blood Oxygen Saturation 81.9 % (95-100) *L Arterial Blood Base Excess -2.5 (-2-2) L Pepe Test Positive White Blood Count 6.4 K/UL (4.8-10.8) Red Blood Count 2.77 M/UL (4.70-6.10) L Hemoglobin 8.6 G/DL (14.2-18.0) L Hematocrit 27.3 % (42.0-52.0) L Mean Corpuscular Volume 99 FL (80-99) Mean Corpuscular Hemoglobin 31.0 PG (27.0-31.0) Mean Corpuscular Hemoglobin Concent 31.4 G/DL (32.0-36.0) L Red Cell Distribution Width 13.9 % (11.6-14.8) Platelet Count 120 K/UL (150-450) L Mean Platelet Volume 7.1 FL (6.5-10.1) Neutrophils (%) (Auto) 72.7 % (45.0-75.0) Lymphocytes (%) (Auto) 15.4 % (20.0-45.0) L Monocytes (%) (Auto) 6.9 % (1.0-10.0) Eosinophils (%) (Auto) 4.6 % (0.0-3.0) H Basophils (%) (Auto) 0.4 % (0.0-2.0) Sodium Level 146 MMOL/L (136-145) H Potassium Level 3.5 MMOL/L (3.5-5.1) Chloride Level 117 MMOL/L (98-107) H Carbon Dioxide Level 22 MMOL/L (21-32) Blood Urea Nitrogen 24 mg/dL (7-18) H Creatinine 0.9 MG/DL (0.55-1.30) Estimat Glomerular Filtration Rate > 60 mL/min (>60) Glucose Level 125 MG/DL (74-106) H Calcium Level 7.4 MG/DL (8.5-10.1) L Phosphorus Level 2.2 MG/DL (2.5-4.9) L Magnesium Level 1.9 MG/DL (1.8-2.4) Total Bilirubin 0.4 MG/DL (0.2-1.0) Aspartate Amino Transf (AST/SGOT) 55 U/L (15-37) H Alanine Aminotransferase (ALT/SGPT) 26 U/L (12-78) Alkaline Phosphatase 95 U/L (46-116) Total Protein 4.3 G/DL (6.4-8.2) L Albumin 1.2 G/DL (3.4-5.0) L Globulin 3.1 g/dL Albumin/Globulin Ratio 0.4 (1.0-2.7) L POC Whole Blood Glucose 114 MG/DL (74-106) H 117 MG/DL (74-106) H Luzmaria Downey MD Apr 30, 2020 12:41
--- NOTE | 2020-04-30 14:30 | NUR ---
NURSE NOTES: Pt turned and repositioned. Oral care done.
--- NOTE | 2020-04-30 15:12 | NUR ---
CASE MANAGEMENT: REVIEW 04/30/2020 SI:SEPSIS. ACUTE RESP FAILURE. VS: T 98.7 HR 71 RR 17 B/P 143/67 SATS 99% ON BIPAP FIO2 60 LABS: NA 146 CL 117 BUN 24 GLU 125 CA 7.4 PHOS 2.2 IS:CEFEPIME IV Q12H NAMENDA PO BID ELIQUIS PO BID LAMICTAL PO QD INSULIN ASPART SUBQ AC/HS K PHOS IV Q4H SEROQUEL PO Q12H SDU DCP: MAURO
--- NOTE | 2020-04-30 16:45 | NUR ---
NURSE NOTES: Pt fully cleaned and linens changed. Pt had a small formed brown BM. Pt remains on BiPAP 05/22 60%. Tube feeds remain off. No distress noted.
--- NOTE | 2020-04-30 18:00 | NUR ---
NURSE NOTES: Pt BS was 88mg/dL. Dr Downey was contacted to inform him of BS trending down d/t pt not currently receiving tube feeds. Awaiting new orders.
--- NOTE | 2020-04-30 19:15 | NUR ---
NURSE HAND-OFF REPORT: Important Events on Shift: Patient Status: Stable Diet: Pt currently on BiPAP. Tube feeding held to prevent aspiration. Pending Orders: N/A Pending Results/Labs: Pending MD notification: Latest Vital Signs: Temperature 97.1 , Pulse 86 , B/P 136 /73 , Respiratory Rate 17 , O2 SAT 98 , Bi-pap 12/5 FiO2 60% . Vital Sign Comment: EKG Rhythm: Sinus Rhythm Rhythm change?: N MD Notified?: MD Response: Latest Andersen Fall Score: 50 Fall Risk: High Risk Safety Measures: Call light Within Reach, Bed Alarm Zone 2, Side Rails Side Rails x3, Bed position Low and Locked. Fall Precautions: Yellow Socks Yellow Gown Door Sign Patient Fall Education Report given to CRUZ Marquez.
--- NOTE | 2020-04-30 19:18 | NUR ---
NURSE NOTES: Received report from CRUZ Horvath, pt. in bed awake, appears to be alert to name, no signs or symptoms of acute cardiac or respiratory distress noted, bed alarm on, side rails up x's3 and safety brakes engaged, call light within easy reach, side rails padded for seizure precautions- no seizure activity noted, pt. appears to be tolerating current BIPAP settings 12/5 fio2 at 60%- no distress noted, left ngt feeding held prior shift Vital AF as pt. is on BIPAP, Contreras intact and draining to gravity, pt. has ELI picc intact and patent running D5W at 75cc/hr- intact and patent. Aspiration precautions observed- HOB elevated, skin precautions observed, Rt. AC and LT. AC both intact and patent, safety measures continued, will continue with plan of care.
[2020-04-30] MEDS: Dyna-Hex 2% Top Sol 2oz TOPIC SCH (20:06)
--- NOTE | 2020-04-30 21:14 | Cardiology Progress Note ---
Assessment/Plan Assessment/Plan 1. Dyspnea most likely due to bilateral pulmonary emboli, on Eliquis, 2D echo reveals normal LV function. 2. Diabetes Mellitus, continue ASA and statins. 3. History of CVA with left hemiparesis. 4. Hypoxic respiratory failure, 5. Anemia. 6. Dysphagia Subjective Subjective Sinus rhythm at rate of 89. Objective Last 24 Hour Vital Signs Date Time Temp Pulse Resp B/P (MAP) Pulse Ox O2 Delivery O2 Flow Rate FiO2 04/30/20 20:38 89 21 98 70 04/30/20 20:00 98.7 86 19 149/65 (93) 98 04/30/20 19:04 98 Bi-Pap 60 04/30/20 18:54 86 17 98 60 04/30/20 17:30 86 17 99 60 04/30/20 16:00 97.1 70 18 136/73 (94) 96 04/30/20 16:00 60 04/30/20 16:00 Bi-pap 04/30/20 16:00 85 04/30/20 15:30 85 17 97 60 04/30/20 13:31 82 17 99 60 04/30/20 12:12 98.7 71 17 143/67 (92) 99 04/30/20 12:00 Bi-pap 04/30/20 12:00 82 04/30/20 11:40 60 04/30/20 11:30 85 18 99 60 04/30/20 09:40 76 17 97 70 04/30/20 08:00 70 04/30/20 08:00 Bi-pap 04/30/20 08:00 98.1 72 22 128/39 (68) 100 04/30/20 08:00 68 04/30/20 07:40 98 Bi-Pap 70 04/30/20 07:10 68 17 98 70 04/30/20 05:10 74 16 100 100 04/30/20 04:00 84 04/30/20 04:00 98.1 75 24 126/95 (105) 99 04/30/20 04:00 35 04/30/20 04:00 Venturi Mask 12.0 04/30/20 03:15 74 16 99 100 04/30/20 01:42 87 25 97 100 04/30/20 00:00 98.4 85 24 126/50 (75) 100 04/30/20 00:00 35 04/30/20 00:00 Venturi Mask 12.0 04/30/20 00:00 79 Intake and Output 04/29/20 04/30/20 19:00 07:00 Intake Total 1586.853 ml 1890.000 ml Output Total 400 ml 700 ml Balance 1186.853 ml 1190.000 ml Free Water 900 ml 900 ml IV Total 26.853 ml 330.000 ml Tube Feeding 660 ml 660 ml Output Urine Total 400 ml 700 ml 2D Echo: LVEF 55%, limited views Laboratory Tests Test 04/30/20 01:00 04/30/20 01:31 04/30/20 04:00 04/30/20 05:52 Vancomycin Level Trough 19.2 ug/mL (5.0-12.0) H Arterial Blood pH 7.430 (7.350-7.450) Arterial Blood Partial Pressure CO2 32.7 mmHg (35.0-45.0) L Arterial Blood Partial Pressure O2 44.1 mmHg (75.0-100.0) Arterial Blood HCO3 21.2 mmol/L (22.0-26.0) L Arterial Blood Oxygen Saturation 81.9 % (95-100) *L Arterial Blood Base Excess -2.5 (-2-2) L Pepe Test Positive White Blood Count 6.4 K/UL (4.8-10.8) Red Blood Count 2.77 M/UL (4.70-6.10) L Hemoglobin 8.6 G/DL (14.2-18.0) L Hematocrit 27.3 % (42.0-52.0) L Mean Corpuscular Volume 99 FL (80-99) Mean Corpuscular Hemoglobin 31.0 PG (27.0-31.0) Mean Corpuscular Hemoglobin Concent 31.4 G/DL (32.0-36.0) L Red Cell Distribution Width 13.9 % (11.6-14.8) Platelet Count 120 K/UL (150-450) L Mean Platelet Volume 7.1 FL (6.5-10.1) Neutrophils (%) (Auto) 72.7 % (45.0-75.0) Lymphocytes (%) (Auto) 15.4 % (20.0-45.0) L Monocytes (%) (Auto) 6.9 % (1.0-10.0) Eosinophils (%) (Auto) 4.6 % (0.0-3.0) H Basophils (%) (Auto) 0.4 % (0.0-2.0) Sodium Level 146 MMOL/L (136-145) H Potassium Level 3.5 MMOL/L (3.5-5.1) Chloride Level 117 MMOL/L (98-107) H Carbon Dioxide Level 22 MMOL/L (21-32) Blood Urea Nitrogen 24 mg/dL (7-18) H Creatinine 0.9 MG/DL (0.55-1.30) Estimat Glomerular Filtration Rate > 60 mL/min (>60) Glucose Level 125 MG/DL (74-106) H Calcium Level 7.4 MG/DL (8.5-10.1) L Phosphorus Level 2.2 MG/DL (2.5-4.9) L Magnesium Level 1.9 MG/DL (1.8-2.4) Total Bilirubin 0.4 MG/DL (0.2-1.0) Aspartate Amino Transf (AST/SGOT) 55 U/L (15-37) H Alanine Aminotransferase (ALT/SGPT) 26 U/L (12-78) Alkaline Phosphatase 95 U/L (46-116) C-Reactive Protein, Quantitative 20.1 mg/dL (0.00-0.90) H Total Protein 4.3 G/DL (6.4-8.2) L Albumin 1.2 G/DL (3.4-5.0) L Globulin 3.1 g/dL Albumin/Globulin Ratio 0.4 (1.0-2.7) L POC Whole Blood Glucose 114 MG/DL (74-106) H Test 04/30/20 11:10 04/30/20 13:12 04/30/20 17:04 04/30/20 20:05 POC Whole Blood Glucose 117 MG/DL (74-106) H 88 MG/DL (74-106) Pending Erythrocyte Sedimentation Rate 115 MM/HR (0-20) H Objective HEENT: normocephalic, atraumatic, bilateral eye PERRL, bilateral eye EOMI Neck: JVp cannot be assessed, no carotid bruit. Respiratory: Bilateral rhonchi Cardiovascular: normal S1S2, regular rate and rhythm, no murmurs, gallops or rubs Gastrointestinal: non tender, soft, non-distended, no guarding Neurologic: Left hemiparesis, responds to commands, localizes to pain Skin: normal color, warm/dry Gama Whitney MD Apr 30, 2020 21:14
--- NOTE | 2020-04-30 23:30 | NUR ---
NURSE NOTES: bed bath given, linens changes, oral care provided, pt. appears to be tolerating current BIPAP settings as ordered, repositioned and turned pt., aspiration precautions observed-HOB elevated, will continue to monitor pt. and with plan of care.
[2020-05-01] VITALS: BP 139/75
[2020-05-01 04:00] VITALS: BP 120/71
[2020-05-01] MEDS: NovoLOG Insulin Flexpen SUBQ SCH ×4 (05:01→20:16)
[2020-05-01 05:28] LABS: HEMATOCRIT 25.1 % (42.0-52.0); HEMOGLOBIN 7.8 G/DL (14.2-18.0); MEAN CORPUSCULAR VOLUME 98 FL (80-99); PLATELET COUNT 141 K/UL (150-450); RED BLOOD COUNT 2.56 M/UL (4.70-6.10); RED CELL DISTRIBUTION WIDTH 13.8 % (11.6-14.8); WHITE BLOOD COUNT 4.9 K/UL (4.8-10.8)
[2020-05-01 05:39] LABS: ANION GAP 7 mmol/L (5-15); BLOOD UREA NITROGEN 21 mg/dL (7-18); CALCIUM 6.7 MG/DL (8.5-10.1); CARBON DIOXIDE 22 MMOL/L (21-32); CHLORIDE 107 MMOL/L (98-107); CREATININE 0.8 MG/DL (0.55-1.30); POTASSIUM 3.5 MMOL/L (3.5-5.1); SODIUM 136 MMOL/L (136-145)
[2020-05-01 06:08] LABS: PHOSPHORUS 2.7 MG/DL (2.5-4.9)
--- NOTE | 2020-05-01 07:10 | NUR ---
NURSE NOTES: received aptient report from driss ARROYO. patient is on bed awake, not in acute distress. on bipap continously,NGT on the L nare noted, TF onhold. Contreras in for retention. SR on the monitor. opens eyes, tracks. will follow plan of care.
--- NOTE | 2020-05-01 07:10 | NUR ---
NURSE NOTES: received patient report from driss singh. patient is on bed awake. not in acute distress. on venti mask at prescribed rate. SR on the monitor. bed is low and locked for safety. will follow plan of care. Addendum: 05/01/20 at 0749 by NABIL MARSHALL RN disregard above notes. erroneously entered.
--- NOTE | 2020-05-01 07:15 | NUR ---
NURSE HAND-OFF REPORT: Important Events on Shift:none Patient Status: fair Diet: pt. on BIPAP feeding held Pending Orders: Pending Results/Labs: Pending MD notification: Latest Vital Signs: Temperature 97.9 , Pulse 79 , B/P 120 /71 , Respiratory Rate 18 , O2 SAT 98 , Bi-pap, O2 Flow Rate 12.0 . Vital Sign Comment: EKG Rhythm: Sinus Rhythm Rhythm change?: N MD Notified?: N -Dr. Tesfaye SAAVEDRA Response: Latest Andersen Fall Score: 50 Fall Risk: High Risk Safety Measures: Call light Within Reach, Bed Alarm Zone 2, Side Rails Side Rails x3, Bed position Low and Locked. Fall Precautions: Yellow Socks Yellow Gown Door Sign Patient Fall Education Report given to samantha Souza, aware to f/u on any abnormal am labs.
[2020-05-01 08:00] VITALS: BP 130/81
--- NOTE | 2020-05-01 08:33 | General Progress Note ---
Subjective ROS Limited/Unobtainable: No Allergies: Coded Allergies: No Known Allergies (Unverified , 06/11/17) Objective Last 24 Hour Vital Signs Date Time Temp Pulse Resp B/P (MAP) Pulse Ox O2 Delivery O2 Flow Rate FiO2 05/01/20 08:00 60 05/01/20 08:00 98.1 61 21 130/81 (97) 98 05/01/20 06:50 69 19 99 60 05/01/20 06:50 99 Bi-Pap 60 05/01/20 05:03 79 18 98 60 05/01/20 04:00 60 05/01/20 04:00 Bi-pap 05/01/20 04:00 97.9 78 20 120/71 (87) 99 05/01/20 03:45 78 05/01/20 02:46 80 17 97 60 05/01/20 00:52 83 17 98 60 05/01/20 00:00 Bi-pap 05/01/20 00:00 60 05/01/20 00:00 98.1 88 20 139/75 (96) 100 04/30/20 23:48 86 04/30/20 22:51 88 18 100 60 04/30/20 20:38 89 21 98 70 04/30/20 20:00 60 04/30/20 20:00 98.7 86 19 149/65 (93) 98 04/30/20 20:00 Bi-pap 04/30/20 19:28 87 04/30/20 19:04 98 Bi-Pap 60 04/30/20 18:54 86 17 98 60 04/30/20 17:30 86 17 99 60 04/30/20 16:00 97.1 70 18 136/73 (94) 96 04/30/20 16:00 60 04/30/20 16:00 Bi-pap 04/30/20 16:00 85 04/30/20 15:30 85 17 97 60 04/30/20 13:31 82 17 99 60 04/30/20 12:12 98.7 71 17 143/67 (92) 99 04/30/20 12:00 Bi-pap 04/30/20 12:00 82 04/30/20 11:40 60 04/30/20 11:30 85 18 99 60 04/30/20 09:40 76 17 97 70 l Intake and Output 04/30/20 05/01/20 19:00 07:00 Intake Total 932.5 ml 1883 ml Output Total 400 ml Balance 932.5 ml 1483 ml Free Water 600 ml 900 ml IV Total 92.5 ml 983 ml Tube Feeding 0 ml Other 240 ml Output Urine Total 400 ml # Bowel Movements 1 4 Laboratory Tests 04/30/20 11:10: POC Whole Blood Glucose 117H 04/30/20 13:12: Erythrocyte Sedimentation Rate 115H 04/30/20 17:04: POC Whole Blood Glucose 88 04/30/20 20:05: POC Whole Blood Glucose [Pending] 05/01/20 04:00: White Blood Count 4.9, Red Blood Count 2.56L, Hemoglobin 7.8L, Hematocrit 25.1L, Mean Corpuscular Volume 98, Mean Corpuscular Hemoglobin 30.3, Mean Corpuscular Hemoglobin Concent 30.9L, Red Cell Distribution Width 13.8, Platelet Count 141L, Mean Platelet Volume 7.1, Neutrophils (%) (Auto) , Lymphocytes (%) (Auto) , M onocytes (%) (Auto) , Eosinophils (%) (Auto) , Basophils (%) (Auto) , Neutrophils % (Manual) [Pending], Lymphocytes % (Manual) [Pending], Platelet Estimate [Pending], Platelet Morphology [Pending], Sodium Level 136#, Potassium Level 3.5, Chloride Level 107, Carbon Dioxide Level 22, Anion Gap 7, Blood Urea Nitrogen 21H, Creatinine 0.8, Estimat Glomerular Filtration Rate > 60, Glucose Level 388#H, Calcium Level 6.7L, Phosphorus Level 2.7, Magnesium Level 1.9, Pro-B-Type Natriuretic Peptide 589H 05/01/20 04:55: POC Whole Blood Glucose [Pending] Height (Feet): 6 Height (Inches): 0.00 Weight (Pounds): 148 General Appearance: no apparent distress EENT: normal ENT inspection Neck: supple Cardiovascular: normal rate Respiratory/Chest: decreased breath sounds Abdomen: hypoactive bowel sounds Extremities: non-tender Assessment/Plan Status: unchanged Assessment/Plan: 1. COPD. 2. Diabetes. 3. Schizophrenia. 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 5. Dementia. 6. Anemia 7. Dysphagia 8. Folate def NGTF on low dose given patient on BIPAP folate not stable for PEG on BIPAP neg stool ob>>> neg will fu Nathan Short MD May 01, 2020 08:33
[2020-05-01] MEDS: Cefepime HCl 1 GM in D5W 55 ML IV SCH (08:46)
[2020-05-01] MEDS: Eliquis 5mg tablet ORAL SCH ×2 (08:46→17:21)
[2020-05-01] MEDS: Memantine 10mg tab ORAL SCH ×2 (08:48→17:21)
--- NOTE | 2020-05-01 09:13 | Pulmonolgy Critical Care Note ---
Critical Care - Asmt/Plan Problems: (1) Acute respiratory failure (2) Acute massive pulmonary embolism (3) Acute deep vein thrombosis (DVT) (4) ATN (acute tubular necrosis) (5) Acute encephalopathy (6) UTI (urinary tract infection) (7) Protein-calorie malnutrition, severe (8) Diabetes (9) HTN (hypertension) (10) CVA (cerebral vascular accident) Respiratory: monitor respiratory rate, adjust FIO2, CXR Cardiac: continue to monitor HR/BP Renal: F/U I&O, keep IV fluid Infectious Disease: check cultures Gastrointestinal: continue feedings/current rate Endocrine: continue sliding scale insulin Hematologic: monitor H/H, transfuse if hgb<8.5, other - one unit of prbc today Neurologic: PRN Morphine, keep patient comfortable Prophylaxis: Protonix Time Spent (Minutes): 40 Notes 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, 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, 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 with: nurses, consultants, case plannerhvac manager - Objective Last 24 Hour Vital Signs Date Time Temp Pulse Resp B/P (MAP) Pulse Ox O2 Delivery O2 Flow Rate FiO2 05/01/20 08:00 60 05/01/20 08:00 98.1 61 21 130/81 (97) 98 05/01/20 06:50 69 19 99 60 05/01/20 06:50 99 Bi-Pap 60 05/01/20 05:03 79 18 98 60 05/01/20 04:00 60 05/01/20 04:00 Bi-pap 05/01/20 04:00 97.9 78 20 120/71 (87) 99 05/01/20 03:45 78 05/01/20 02:46 80 17 97 60 05/01/20 00:52 83 17 98 60 05/01/20 00:00 Bi-pap 05/01/20 00:00 60 05/01/20 00:00 98.1 88 20 139/75 (96) 100 04/30/20 23:48 86 04/30/20 22:51 88 18 100 60 04/30/20 20:38 89 21 98 70 04/30/20 20:00 60 04/30/20 20:00 98.7 86 19 149/65 (93) 98 04/30/20 20:00 Bi-pap 04/30/20 19:28 87 04/30/20 19:04 98 Bi-Pap 60 04/30/20 18:54 86 17 98 60 04/30/20 17:30 86 17 99 60 04/30/20 16:00 97.1 70 18 136/73 (94) 96 04/30/20 16:00 60 04/30/20 16:00 Bi-pap 04/30/20 16:00 85 04/30/20 15:30 85 17 97 60 04/30/20 13:31 82 17 99 60 04/30/20 12:12 98.7 71 17 143/67 (92) 99 04/30/20 12:00 Bi-pap 04/30/20 12:00 82 04/30/20 11:40 60 04/30/20 11:30 85 18 99 60 04/30/20 09:40 76 17 97 70 Status: obtunded Condition: critical HEENT: atraumatic, normocephalic Heart: HR/BP stable Abdomen: soft, non-tender, active bowel sounds Accucheck: 102 Critical Care - Subjective ROS Limited/Unobtainable: Yes Interval Events: still very lethargic, on BIPAP Condition: critical FI02: 60 Vent Support Breath Rate: 18 Vent Support Mode: BiLevel Sputum Amount: None Tube Feeding Amount: 0 I&O: Intake and Output 04/30/20 05/01/20 19:00 07:00 Intake Total 932.5 ml 1883 ml Output Total 400 ml Balance 932.5 ml 1483 ml Free Water 600 ml 900 ml IV Total 92.5 ml 983 ml Tube Feeding 0 ml Other 240 ml Output Urine Total 400 ml # Bowel Movements 1 4 CXR: no changes Labs: Laboratory Tests Test 04/30/20 11:10 04/30/20 13:12 04/30/20 17:04 04/30/20 20:05 POC Whole Blood Glucose 117 MG/DL (74-106) H 88 MG/DL (74-106) Pending Erythrocyte Sedimentation Rate 115 MM/HR (0-20) H Test 05/01/20 04:00 05/01/20 04:55 White Blood Count 4.9 K/UL (4.8-10.8) Red Blood Count 2.56 M/UL (4.70-6.10) L Hemoglobin 7.8 G/DL (14.2-18.0) L Hematocrit 25.1 % (42.0-52.0) L Mean Corpuscular Volume 98 FL (80-99) Mean Corpuscular Hemoglobin 30.3 PG (27.0-31.0) Mean Corpuscular Hemoglobin Concent 30.9 G/DL (32.0-36.0) L Red Cell Distribution Width 13.8 % (11.6-14.8) Platelet Count 141 K/UL (150-450) L Mean Platelet Volume 7.1 FL (6.5-10.1) Neutrophils (%) (Auto) % (45.0-75.0) Lymphocytes (%) (Auto) % (20.0-45.0) Monocytes (%) (Auto) % (1.0-10.0) Eosinophils (%) (Auto) % (0.0-3.0) Basophils (%) (Auto) % (0.0-2.0) Neutrophils % (Manual) Pending Lymphocytes % (Manual) Pending Platelet Estimate Pending Platelet Morphology Pending Sodium Level 136 MMOL/L (136-145) # Potassium Level 3.5 MMOL/L (3.5-5.1) Chloride Level 107 MMOL/L (98-107) Carbon Dioxide Level 22 MMOL/L (21-32) Anion Gap 7 mmol/L (5-15) Blood Urea Nitrogen 21 mg/dL (7-18) H Creatinine 0.8 MG/DL (0.55-1.30) Estimat Glomerular Filtration Rate > 60 mL/min (>60) Glucose Level 388 MG/DL (74-106) #H Calcium Level 6.7 MG/DL (8.5-10.1) L Phosphorus Level 2.7 MG/DL (2.5-4.9) Magnesium Level 1.9 MG/DL (1.8-2.4) Pro-B-Type Natriuretic Peptide 589 pg/mL (0-125) H POC Whole Blood Glucose Pending Lzumaria Downey MD May 01, 2020 09:13
--- NOTE | 2020-05-01 09:54 | Infectious Diseases Prog Note ---
Assessment/Plan Assessment: Sepsis UTI -u/a wbc 50-60, nit neg, leuk +1; ucx Neg Gram positive bacteremia- m/l contaminant -04/24 sp cx 1/2 S. epi; 04/26 Bcx NTD Fever; SP No leukocytosis -04/26 influenza screen neg CXR: Borderline cardiomegaly. No acute process -04/24 CXR: No acute cardiopulmonary disease. covid rapid PCR neg Acute hypoxic resp failure- SP NRB>Bipap> VM . BiPAP B/l DVT and PE -CTA chest: Positive for bilateral pulmonary emboli Equivocal evidence of right heart strain; RV /LV ratio around 0.5 but is somewhat difficult to assess due to ventricular muscle hypertrophy. Left basilar compressive atelectasis, pleural fluid, and possibly some consolidation. Trace right pleural fluid. Subtle mosaic perfusion pattern, nonspecific but probably represents very mild pulmonary edema. Cardiomegaly. Nasogastric tube -V. duplex: : On the right, occlusive thrombus is seen within the downstream common femoral vein, the femoral vein, popliteal vein as well as within multiple calf veins. On the left, occlusive thrombus is seen within the femoral vein and popliteal vein the common femoral vein and calf veins are patent. 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 Will continue to follow along with you. Discussed with RN. Subjective Allergies: Coded Allergies: No Known Allergies (Unverified , 06/11/17) on BiPAP afebrile nl WBC Objective Last 24 Hour Vital Signs Date Time Temp Pulse Resp B/P (MAP) Pulse Ox O2 Delivery O2 Flow Rate FiO2 05/01/20 09:18 75 19 99 60 05/01/20 08:00 60 05/01/20 08:00 Bi-pap 05/01/20 08:00 76 05/01/20 08:00 98.1 61 21 130/81 (97) 98 05/01/20 06:50 69 19 99 60 05/01/20 06:50 99 Bi-Pap 60 11/14/20 05:03 79 18 98 60 05/01/20 04:00 60 05/01/20 04:00 Bi-pap 05/01/20 04:00 97.9 78 20 120/71 (87) 99 05/01/20 03:45 78 05/01/20 02:46 80 17 97 60 05/01/20 00:52 83 17 98 60 05/01/20 00:00 Bi-pap 05/01/20 00:00 60 05/01/20 00:00 98.1 88 20 139/75 (96) 100 04/30/20 23:48 86 04/30/20 22:51 88 18 100 60 04/30/20 20:38 89 21 98 70 04/30/20 20:00 60 04/30/20 20:00 98.7 86 19 149/65 (93) 98 04/30/20 20:00 Bi-pap 04/30/20 19:28 87 04/30/20 19:04 98 Bi-Pap 60 04/30/20 18:54 86 17 98 60 04/30/20 17:30 86 17 99 60 04/30/20 16:00 97.1 70 18 136/73 (94) 96 04/30/20 16:00 60 04/30/20 16:00 Bi-pap 04/30/20 16:00 85 04/30/20 15:30 85 17 97 60 04/30/20 13:31 82 17 99 60 04/30/20 12:12 98.7 71 17 143/67 (92) 99 04/30/20 12:00 Bi-pap 04/30/20 12:00 82 04/30/20 11:40 60 04/30/20 11:30 85 18 99 60 Height (Feet): 6 Height (Inches): 0.00 Weight (Pounds): 148 HEENT: anicteric Respiratory/Chest: no respiratory distress Cardiovascular: normal rate Abdomen: no organomegaly Laboratory Tests Test 04/30/20 11:10 04/30/20 13:12 04/30/20 17:04 04/30/20 20:05 POC Whole Blood Glucose 117 MG/DL (74-106) H 88 MG/DL (74-106) Pending Erythrocyte Sedimentation Rate 115 MM/HR (0-20) H Test 05/01/20 04:00 05/01/20 04:55 White Blood Count 4.9 K/UL (4.8-10.8) Red Blood Count 2.56 M/UL (4.70-6.10) L Hemoglobin 7.8 G/DL (14.2-18.0) L Hematocrit 25.1 % (42.0-52.0) L Mean Corpuscular Volume 98 FL (80-99) Mean Corpuscular Hemoglobin 30.3 PG (27.0-31.0) Mean Corpuscular Hemoglobin Concent 30.9 G/DL (32.0-36.0) L Red Cell Distribution Width 13.8 % (11.6-14.8) Platelet Count 141 K/UL (150-450) L Mean Platelet Volume 7.1 FL (6.5-10.1) Neutrophils (%) (Auto) % (45.0-75.0) Lymphocytes (%) (Auto) % (20.0-45.0) Monocytes (%) (Auto) % (1.0-10.0) Eosinophils (%) (Auto) % (0.0-3.0) Basophils (%) (Auto) % (0.0-2.0) Differential Total Cells Counted 100 Neutrophils % (Manual) 79 % (45-75) H Lymphocytes % (Manual) 9 % (20-45) L Monocytes % (Manual) 5 % (1-10) Eosinophils % (Manual) 6 % (0-3) H Basophils % (Manual) 0 % (0-2) Myelocytes % 1 % (0-0) H Band Neutrophils 0 % (0-8) Platelet Estimate Decreased L Platelet Morphology Normal Hypochromasia 1+ Erythrocyte Sedimentation Rate Pending Sodium Level 136 MMOL/L (136-145) # Potassium Level 3.5 MMOL/L (3.5-5.1) Chloride Level 107 MMOL/L (98-107) Carbon Dioxide Level 22 MMOL/L (21-32) Anion Gap 7 mmol/L (5-15) Blood Urea Nitrogen 21 mg/dL (7-18) H Creatinine 0.8 MG/DL (0.55-1.30) Estimat Glomerular Filtration Rate > 60 mL/min (>60) Glucose Level 388 MG/DL (74-106) #H Calcium Level 6.7 MG/DL (8.5-10.1) L Phosphorus Level 2.7 MG/DL (2.5-4.9) Magnesium Level 1.9 MG/DL (1.8-2.4) C-Reactive Protein, Quantitative 16.2 mg/dL (0.00-0.90) H Pro-B-Type Natriuretic Peptide 589 pg/mL (0-125) H POC Whole Blood Glucose Pending Current Medications Medications (Trade) Dose Ordered Sig/Lopez Route PRN Reason Start Time Stop Time Status Last Admin Dose Admin Acetaminophen (Tylenol) 650 mg Q4H PRN ORAL fever 04/25/20 00:00 05/25/20 00:00 Apixaban (Eliquis) 5 mg BID ORAL 05/06/20 18:00 08/04/20 17:59 Apixaban (Eliquis) 10 mg BID ORAL 04/29/20 18:00 05/06/20 09:01 05/01/20 08:46 Cefepime HCl 1 gm/ Dextrose 55 ml @ 110 mls/hr EVERY 12 HOURS IV 04/25/20 09:00 05/02/20 08:59 05/01/20 08:46 Chlorhexidine Gluconate (Arpita-Hex 2%) 1 applic DAILY@2000 TOPIC 04/29/20 20:00 07/28/20 19:59 04/30/20 20:06 Dextrose 1,000 ml @ 75 mls/hr [id number] IV 04/30/20 18:30 05/30/20 18:29 05/01/20 01:22 Dextrose (Dextrose 50%) 25 ml Q30M PRN IV Hypoglycemia 04/25/20 00:00 07/24/20 00:00 Dextrose (Dextrose 50%) 50 ml Q30M PRN IV Hypoglycemia 04/25/20 00:00 07/24/20 00:00 Folic Acid (Folate) 1 mg DAILY ORAL 04/29/20 09:00 05/29/20 08:59 05/01/20 08:45 Insulin Aspart (NovoLOG) BEFORE MEALS AND HS SUBQ 04/25/20 06:30 07/24/20 06:29 04/28/20 06:22 Lamotrigine (LaMICtal) 25 mg DAILY ORAL 04/25/20 09:00 05/25/20 08:59 05/01/20 08:45 Lorazepam (Ativan 2mg/ml 1ml) 0.5 mg Q4H PRN IV Agitation 04/25/20 01:00 05/02/20 00:59 Memantine (Namenda) 5 mg TWICE A DAY ORAL 04/25/20 09:00 05/25/20 08:59 05/01/20 08:48 Olanzapine (ZyPREXA) 5 mg DAILY ORAL 04/25/20 09:00 06/09/20 08:59 05/01/20 08:45 Ondansetron HCl (Zofran) 4 mg Q6H PRN IVP Nausea & Vomiting 04/25/20 00:00 05/25/20 00:00 Polyethylene Glycol (Miralax) 17 gm DAILYPRN PRN ORAL Constipation 04/25/20 00:00 05/25/20 00:00 Quetiapine Fumarate (SEROqueL) 50 mg Q12HR ORAL 04/27/20 11:30 06/11/20 11:29 05/01/20 08:48 Temazepam (Restoril) 15 mg HSPRN PRN ORAL Insomnia 04/25/20 00:00 05/02/20 00:00 04/30/20 20:08 Samm Fong MD May 01, 2020 09:54
--- NOTE | 2020-05-01 10:21 | Psychiatry Consultation ---
Psychiatry Consultation Psychiatry Consultation Chief Complaint: Dyspnea/Respdistress History of Present Illness: 80-year-old female patient referred vestments respiratory insufficiency because patient has altered mental status confusion and overall decline in cognition below his baseline as well as attending has requested daily psychiatric consultation Mental status semination: 80-year-old male appears disheveled arterial irritable agitated affect guarded and restricted intellect poor rest anxious motor activity psychomotor agitation attention span is poor orientation x2 speech is low volume slurred thought process disorganized logical and judgment poor Allergies: Coded Allergies: No Known Allergies (Unverified , 06/11/17) Medication History Scheduled Amino Acids/Protein Hydrolys (Pro-Stat Liquid), 30 ML ORAL DAILY, (Reported) Aspirin (Aspirin EC), 81 MG ORAL DAILY, (Reported) Docusate Sodium* (Colace*), 100 MG ORAL DAILY, (Reported) Folic Acid* (Folic Acid*), 1 MG ORAL DAILY, (Reported) Heparin Sod (Porcine) (Heparin Sodium*), 5,000 UNITS SUBQ DAILY, (Reported) Lamotrigine* (Lamictal*), 25 MG ORAL DAILY, (Reported) Lisinopril (Lisinopril*), 20 MG ORAL BID, (Reported) Memantine Hcl* (Namenda*), 5 MG ORAL TWICE A DAY, (Reported) Multivitamin With Minerals (Multivitamins With Minerals*), 1 TAB ORAL DAILY, (Reported) Olanzapine* (Zyprexa*), 5 MG ORAL DAILY, (Reported) Sennosides (Senna), 2 TAB PO BEDTIME, (Reported) Scheduled PRN Acetaminophen* (Acetaminophen 325MG Tablet*), 650 MG ORAL Q4H PRN for Fever/Headache/Mild Pain, (Reported) Bisacodyl (Dulcolax), 10 MG RC for Constipation, (Reported) Hydralazine Hcl* (Hydralazine Hcl*), 10 MG ORAL Q4HR PRN for SBP > 160 , (Reported) Ipratropium/Albuterol Sulfate (DuoNeb 0.5-3(2.5)mg/3ml), 1 UNIT HHN EVERY 6 HOURS PRN for Shortness of Breath, (Reported) Magnesium Hydroxide* (Milk Of Magnesia*), 30 ML ORAL EVERY 6 HOURS PRN for Constipation, (Reported) Na Phos,M-B/Na Phos,Di-Ba* (Fleet Enema*), 133 ML RECTAL DAILY PRN for Constipation, (Reported) Nitroglycerin 0.4MG table* (Nitroglycerin*), 0.4 MG SL .Q5MIN X 3 DOSES PRN for CHEST PAIN, (Reported) Miscellaneous Medications Insulin Lispro (Humalog), 0 SUBQ, (Reported) Discontinued Medications Ascorbic Acid* (Vitamin C*), 500 MG ORAL DAILY, (Reported) Discontinued Reason: Pt stopped taking med Benazepril Hcl* (Lotensin*), 20 MG ORAL BID, (Reported) Discontinued Reason: Pt stopped taking med Calcium Carbonate/Vitamin D3 (Calcium 500 + Vit D 200 Tablet), 1 EACH PO BID, (Reported) Discontinued Reason: Pt stopped taking med Cranberry Extract (Cranberry), 425 MG PO, (Reported) Discontinued Reason: Pt stopped taking med Escitalopram Oxalate* (Lexapro*), 10 MG ORAL DAILY, (Reported) Discontinued Reason: Pt stopped taking med Folic Acid/Vitamin B Comp W-C (Sarah-Ruben Tablet), 0.8 MG PO DAILY, (Reported) Discontinued Reason: Pt stopped taking med Insulin Aspart* (Novolog*), 0 SUBQ BEFORE MEALS AND HS, (Reported) Discontinued Reason: Pt stopped taking med Lamotrigine* (Lamictal*), 25 MG ORAL DAILY, (Reported) Discontinued Reason: Pt stopped taking med Levofloxacin* (Levaquin*), 750 MG ORAL DAILY, (Reported) Discontinued Reason: Pt stopped taking med Lisinopril* (Lisinopril*), 20 MG ORAL DAILY, (Reported) Discontinued Reason: Prescription changed Lorazepam* (Ativan*), 0.5 MG ORAL EVERY 6 HOURS, (Reported) Discontinued Reason: Pt stopped taking med Memantine Hcl* (Namenda*), 5 MG ORAL DAILY, (Reported) Discontinued Reason: Pt stopped taking med Olanzapine* (Zyprexa*), 5 MG ORAL HS, (Reported) Discontinued Reason: Pt stopped taking med Temazepam* (Restoril*), 15 MG ORAL BEDTIME PRN for Insomnia, (Reported) Discontinued Reason: Pt stopped taking med Vitamin B Cmplx/Vit C/Folic AC (Nephro-Ruben Tablet), 1 TAB ORAL DAILY, (Reported) Discontinued Reason: Pt stopped taking med Objective Data Height (Feet): 6 Height (Inches): 0.00 Weight (Pounds): 148 Assessment/Plan Assessment/Plan: Continue the patient on Lamictal, Zyprexa, Ativan and Namenda. 20min of insight oriented psychotherapy to help him recognize his psychical and cogintive deficits so that he has less depression and better impulse control. Diagnosis [place] I: Schizoaffective bipolar type Dakota Monroe MD May 01, 2020 10:21
[2020-05-01 12:00] VITALS: BP 131/77
--- NOTE | 2020-05-01 12:15 | Nephrology Progress Note ---
Assessment/Plan Problem List: (1) KORY (acute kidney injury) (2) Hypernatremia (3) Dehydration (4) Acute respiratory failure Assessment Patient presents with acute hypoxic respiratory failure requiring BiPAP Sepsis lactic acidosis KORY Dehydration, hypernatremia History of COPD Anemia Low BMI, malnutrition. BMI of 20.1 History of CVA History of diabetes mellitus Plan May 01: Serum serum sodium 136. Will stop D5W IV fluid. 1 dose of Lasix IV. Potassium supplement. Continue to monitor electrolytes. Continue per consultants. April 30: Serum sodium 146. Low phosphorus replaced. Continue pulmonary support and per consultants. April 29: Serum sodium normalized. Electrolytes within normal limit. Remains on nonrebreather mask. Continue per consultants. April 28: Continue D5W. Abnormal electrolytes addressed. Continue per consultants. Remains full code. Remains on nonrebreather mask. April 27: Continue D5W. Continue pulmonary support. Monitor renal parameters and electrolytes. Continue per consultants. Patient full code. Remains on nonrebreathing mask. Contreras catheter IV D5W Monitor electrolytes and renal parameters Antibiotics Avoid nephrotoxic's 2D echocardiogram Per orders Subjective ROS Limited/Unobtainable: Yes Objective Objective Last 24 Hour Vital Signs Date Time Temp Pulse Resp B/P (MAP) Pulse Ox O2 Delivery O2 Flow Rate FiO2 05/01/20 11:07 74 19 100 60 05/01/20 09:18 75 19 99 60 05/01/20 08:00 60 05/01/20 08:00 Bi-pap 05/01/20 08:00 76 05/01/20 08:00 98.1 61 21 130/81 (97) 98 05/01/20 06:50 69 19 99 60 05/01/20 06:50 99 Bi-Pap 60 05/01/20 05:03 79 18 98 60 05/01/20 04:00 60 05/01/20 04:00 Bi-pap 05/01/20 04:00 97.9 78 20 120/71 (87) 99 05/01/20 03:45 78 05/01/20 02:46 80 17 97 60 05/01/20 00:52 83 17 98 60 05/01/20 00:00 Bi-pap 05/01/20 00:00 60 05/01/20 00:00 98.1 88 20 139/75 (96) 100 11/13/20 23:48 86 04/30/20 22:51 88 18 100 60 04/30/20 20:38 89 21 98 70 04/30/20 20:00 60 04/30/20 20:00 98.7 86 19 149/65 (93) 98 04/30/20 20:00 Bi-pap 04/30/20 19:28 87 04/30/20 19:04 98 Bi-Pap 60 04/30/20 18:54 86 17 98 60 04/30/20 17:30 86 17 99 60 04/30/20 16:00 97.1 70 18 136/73 (94) 96 04/30/20 16:00 60 04/30/20 16:00 Bi-pap 04/30/20 16:00 85 04/30/20 15:30 85 17 97 60 04/30/20 13:31 82 17 99 60 Intake and Output 04/30/20 05/01/20 19:00 07:00 Intake Total 932.5 ml 1883 ml Output Total 400 ml Balance 932.5 ml 1483 ml Free Water 600 ml 900 ml IV Total 92.5 ml 983 ml Tube Feeding 0 ml Other 240 ml Output Urine Total 400 ml # Bowel Movements 1 4 Laboratory Tests 04/30/20 13:12: Erythrocyte Sedimentation Rate 115H 04/30/20 17:04: POC Whole Blood Glucose 88 04/30/20 20:05: POC Whole Blood Glucose [Pending] 05/01/20 04:00: Erythrocyte Sedimentation Rate 101H, White Blood Count 4.9, Red Blood Count 2.56L, Hemoglobin 7.8L, Hematocrit 25.1L, Mean Corpuscular Volume 98, Mean C orpuscular Hemoglobin 30.3, Mean Corpuscular Hemoglobin Concent 30.9L, Red Cell Distribution Width 13.8, Platelet Count 141L, Mean Platelet Volume 7.1, Neutrophils (%) (Auto) , Lymphocytes (%) (Auto) , Monocytes (%) (Auto) , Eosinophils (%) (Auto) , Basophils (%) (Auto) , Differential Total Cells Counted 100, Neutrophils % (Manual) 79H, Lymphocytes % (Manual) 9L, Monocytes % (Manual) 5, Eosinophils % (Manual) 6H, Basophils % (Manual) 0, Myelocytes % 1H, Band Neutrophils 0, Platelet Estimate DecreasedL, Platelet Morphology Normal, Hypochromasia 1+, Sodium Level 136#, Potassium Level 3.5, Chloride Level 107, Carbon Dioxide Level 22, Anion Gap 7, Blood Urea Nitrogen 21H, Creatinine 0.8, Estimat Glomerular Filtration Rate > 60, Glucose Level 388#H, Calcium Level 6.7L , Phosphorus Level 2.7, Magnesium Level 1.9, C-Reactive Protein, Quantitative 16.2H, Pro-B-Type Natriuretic Peptide 589H 05/01/20 04:55: POC Whole Blood Glucose [Pending] 05/01/20 11:46: POC Whole Blood Glucose 125H Height (Feet): 6 Height (Inches): 0.00 Weight (Pounds): 148 General Appearance: no apparent distress EENT: other - On BiPAP Cardiovascular: normal rate Respiratory/Chest: decreased breath sounds Abdomen: distended Maximino Castillo MD May 01, 2020 12:15
[2020-05-01 16:00] VITALS: BP 137/62
--- NOTE | 2020-05-01 19:20 | NUR ---
NURSE NOTES: Received report from CRUZ Souza, patient in bed awake, in no apparent acute cardiac or respiratory distress noted. Patient appears to be tolerating current BIPAP settings 12/5 fio2 at 60%- no distress noted. With left ngt feeding running Vital AF @20cc/hr, no residual noted. Contreras intact and draining to gravity, Patient has ELI picc intact and patent running 0.9 % Sodium Chloride TKO, intact and patent. Aspiration precautions observed- HOB elevated, skin precautions observed, Rt AC and LT AC both intact and patent, safety measures in placed, call light within reached, will continue with plan of care.
--- NOTE | 2020-05-01 19:20 | NUR ---
NURSE HAND-OFF REPORT: Important Events on Shift:afib epsiode @1531, left a message to dr worrell Patient Status: full code Diet: ngt feeds, vital af @20 Pending Orders: OBS Pending Results/Labs:[] Pending MD notification:[] Latest Vital Signs: Temperature 98.2 , Pulse 92 , B/P 137 /62 , Respiratory Rate 21 , O2 SAT 100 , Bi-pap, O2 Flow Rate . Vital Sign Comment: stable EKG Rhythm: Sinus Rhythm Rhythm change?: N Notified?: N -Dr. Tesfaye SAAVEDRA Response: Latest Andersen Fall Score: 70 Fall Risk: High Risk Safety Measures: Call light Within Reach, Bed Alarm Zone 2, Side Rails Side Rails x3, Bed position Low and Locked. Fall Precautions: Yellow Socks Yellow Gown Door Sign Patient Fall Education Report given to jayme singh.
--- NOTE | 2020-05-01 19:28 | NUR ---
NURSE NOTES: dr worrell made aware of patients episode of afib @ [id number]. [address] worrell increase dosage to 50mg BID. will take note and carry out.
[2020-05-01 20:00] VITALS: BP 122/70
--- NOTE | 2020-05-01 20:02 | NUR ---
NURSE NOTES: Dr Whitney seen the pt, aware of the Afib episode with new order of Metoprol Tart 50 mg BID.
[2020-05-01] MEDS: Dyna-Hex 2% Top Sol 2oz TOPIC SCH (20:10)
[2020-05-01] MEDS: Metoprolol Tartrate 50mg tab GT SCH (20:10)
--- NOTE | 2020-05-01 20:17 | Cardiology Progress Note ---
Assessment/Plan Assessment/Plan 1. Wandering pacemaker or multifocal atrial rhythm, increase metoprolol to 50mg bid. 2. Dyspnea most likely due to bilateral pulmonary emboli, on Eliquis, 2D echo reveals normal LV function. 3. History of CVA with left hemiparesis. 4. Hypoxic respiratory failure, on bipap mask. 5. Diabetes Mellitus, continue ASA and statins. 6. Dysphagia Subjective Subjective Multifocal atrial rhythm or wandering pacemaker. Objective Last 24 Hour Vital Signs Date Time Temp Pulse Resp B/P (MAP) Pulse Ox O2 Delivery O2 Flow Rate FiO2 05/01/20 20:10 97 122/70 05/01/20 17:21 92 21 100 60 05/01/20 16:00 60 05/01/20 16:00 Bi-pap 05/01/20 16:00 98.2 80 22 137/62 (87) 98 05/01/20 15:45 78 05/01/20 15:31 93 05/01/20 15:10 84 21 100 60 05/01/20 13:20 78 20 100 60 05/01/20 12:00 Bi-pap 05/01/20 12:00 81 05/01/20 12:00 60 05/01/20 12:00 96.8 78 20 131/77 (95) 96 05/01/20 11:07 74 19 100 60 05/01/20 09:18 75 19 99 60 05/01/20 08:00 60 05/01/20 08:00 Bi-pap 05/01/20 08:00 76 05/01/20 08:00 98.1 61 21 130/81 (97) 98 05/01/20 06:50 69 19 99 60 05/01/20 06:50 99 Bi-Pap 60 05/01/20 05:03 79 18 98 60 05/01/20 04:00 60 05/01/20 04:00 Bi-pap 05/01/20 04:00 97.9 78 20 120/71 (87) 99 05/01/20 03:45 78 05/01/20 02:46 80 17 97 60 05/01/20 00:52 83 17 98 60 05/01/20 00:00 Bi-pap 05/01/20 00:00 60 05/01/20 00:00 98.1 88 20 139/75 (96) 100 04/30/20 23:48 86 04/30/20 22:51 88 18 100 60 04/30/20 20:38 89 21 98 70 Intake and Output 04/30/20 05/01/20 19:00 07:00 Intake Total 932.5 ml 1883 ml Output Total 400 ml Balance 932.5 ml 1483 ml Free Water 600 ml 900 ml IV Total 92.5 ml 983 ml Tube Feeding 0 ml Other 240 ml Output Urine Total 400 ml # Bowel Movements 1 4 2D Echo: LVEF 55%, limited views Laboratory Tests Test 05/01/20 04:00 05/01/20 04:55 05/01/20 11:46 05/01/20 16:37 White Blood Count 4.9 K/UL (4.8-10.8) Red Blood Count 2.56 M/UL (4.70-6.10) L Hemoglobin 7.8 G/DL (14.2-18.0) L Hematocrit 25.1 % (42.0-52.0) L Mean Corpuscular Volume 98 FL (80-99) Mean Corpuscular Hemoglobin 30.3 PG (27.0-31.0) Mean Corpuscular Hemoglobin Concent 30.9 G/DL (32.0-36.0) L Red Cell Distribution Width 13.8 % (11.6-14.8) Platelet Count 141 K/UL (150-450) L Mean Platelet Volume 7.1 FL (6.5-10.1) Neutrophils (%) (Auto) % (45.0-75.0) Lymphocytes (%) (Auto) % (20.0-45.0) Monocytes (%) (Auto) % (1.0-10.0) Eosinophils (%) (Auto) % (0.0-3.0) Basophils (%) (Auto) % (0.0-2.0) Differential Total Cells Counted 100 Neutrophils % (Manual) 79 % (45-75) H Lymphocytes % (Manual) 9 % (20-45) L Monocytes % (Manual) 5 % (1-10) Eosinophils % (Manual) 6 % (0-3) H Basophils % (Manual) 0 % (0-2) Myelocytes % 1 % (0-0) H Band Neutrophils 0 % (0-8) Platelet Estimate Decreased L Platelet Morphology Normal Hypochromasia 1+ Erythrocyte Sedimentation Rate 101 MM/HR (0-20) H Sodium Level 136 MMOL/L (136-145) # Potassium Level 3.5 MMOL/L (3.5-5.1) Chloride Level 107 MMOL/L (98-107) Carbon Dioxide Level 22 MMOL/L (21-32) Anion Gap 7 mmol/L (5-15) Blood Urea Nitrogen 21 mg/dL (7-18) H Creatinine 0.8 MG/DL (0.55-1.30) Estimat Glomerular Filtration Rate > 60 mL/min (>60) Glucose Level 388 MG/DL (74-106) #H Calcium Level 6.7 MG/DL (8.5-10.1) L Phosphorus Level 2.7 MG/DL (2.5-4.9) Magnesium Level 1.9 MG/DL (1.8-2.4) C-Reactive Protein, Quantitative 16.2 mg/dL (0.00-0.90) H Pro-B-Type Natriuretic Peptide 589 pg/mL (0-125) H POC Whole Blood Glucose Pending 125 MG/DL (74-106) H 126 MG/DL (74-106) H Objective HEENT: normocephalic, atraumatic, bilateral eye PERRL, bilateral eye EOMI, on bipap mask. Neck: JVP cannot be assessed, no carotid bruit. Respiratory: Bilateral rhonchi Cardiovascular: normal S1S2, irregularly irregular rhythm, no murmurs, gallops or rubs Gastrointestinal: non tender, soft, non-distended, no guarding Extremities: No edema, clubbing or cyanosis. Neurologic: Left hemiparesis, responds to commands, localizes to pain Gama Whitney MD May 01, 2020 20:17
--- NOTE | 2020-05-01 21:21 | General Progress Note ---
Subjective ROS Limited/Unobtainable: Yes Allergies: Coded Allergies: No Known Allergies (Unverified , 06/11/17) Objective Last 24 Hour Vital Signs Date Time Temp Pulse Resp B/P (MAP) Pulse Ox O2 Delivery O2 Flow Rate FiO2 05/01/20 20:43 91 24 94 60 05/01/20 20:10 97 122/70 05/01/20 20:00 92 Bi-Pap 60 05/01/20 20:00 60 05/01/20 20:00 Bi-pap 05/01/20 20:00 98.2 97 20 122/70 (87) 98 05/01/20 19:30 90 23 92 60 05/01/20 17:21 92 21 100 60 05/01/20 16:00 60 05/01/20 16:00 Bi-pap 05/01/20 16:00 98.2 80 22 137/62 (87) 98 05/01/20 15:45 78 05/01/20 15:31 93 05/01/20 15:10 84 21 100 60 05/01/20 13:20 78 20 100 60 05/01/20 12:00 Bi-pap 05/01/20 12:00 81 05/01/20 12:00 60 05/01/20 12:00 96.8 78 20 131/77 (95) 96 05/01/20 11:07 74 19 100 60 05/01/20 09:18 75 19 99 60 05/01/20 08:00 60 05/01/20 08:00 Bi-pap 05/01/20 08:00 76 05/01/20 08:00 98.1 61 21 130/81 (97) 98 05/01/20 06:50 69 19 99 60 05/01/20 06:50 99 Bi-Pap 60 05/01/20 05:03 79 18 98 60 05/01/20 04:00 60 05/01/20 04:00 Bi-pap 05/01/20 04:00 97.9 78 20 120/71 (87) 99 05/01/20 03:45 78 05/01/20 02:46 80 17 97 60 05/01/20 00:52 83 17 98 60 05/01/20 00:00 Bi-pap 05/01/20 00:00 60 05/01/20 00:00 98.1 88 20 139/75 (96) 100 04/30/20 23:48 86 04/30/20 22:51 88 18 100 60 Intake and Output 04/30/20 05/01/20 19:00 07:00 Intake Total 932.5 ml 1883 ml Output Total 400 ml Balance 932.5 ml 1483 ml Free Water 600 ml 900 ml IV Total 92.5 ml 983 ml Tube Feeding 0 ml Other 240 ml Output Urine Total 400 ml # Bowel Movements 1 4 Laboratory Tests 05/01/20 04:00: White Blood Count 4.9, Red Blood Count 2.56L, Hemoglobin 7.8L, Hematocrit 25.1L, Mean Corpuscular Volume 98, Mean Corpuscular Hemoglobin 30.3, Mean Corpuscular Hemoglobin Concent 30.9L, Red Cell Distribution Width 13.8, Platelet Count 141L, Mean Platelet Volume 7.1, Neutrophils (%) (Auto) , Lymphocytes (%) (Auto) , Monocytes (%) (Auto) , Eosinophils (%) (Auto) , Basophils (%) (Auto) , Differential Total Cells Counted 100, Neutrophils % (Manual) 79H, Lymphocytes % (Manual) 9L, Monocytes % (Manual) 5, Eosinophils % (Manual) 6H, Basophils % (Manual) 0, Myelocytes % 1H, Band Neutrophils 0, Platelet Estimate DecreasedL, Platelet Morphology Normal, Hypochromasia 1+, Erythrocyte Sedimentation Rate 101H, Sodium Level 136#, Potassium Level 3.5, Chloride Level 107, Carbon Dioxide Level 22, Anion Gap 7, Blood Urea Nitrogen 21H, Creatinine 0.8, Estimat Glomerular Filtration Rate > 60, Glucose Level 388#H, Calcium Level 6.7L, Phosphorus Level 2.7, Magnesium Level 1.9, C-Reactive Protein, Quantitative 16.2H, Pro-B-Type Natriuretic Peptide 589H 05/01/20 04:55: POC Whole Blood Glucose [Pending] 05/01/20 11:46: POC Whole Blood Glucose 125H 05/01/20 16:37: POC Whole Blood Glucose 126H 05/01/20 20:15: POC Whole Blood Glucose 100 Height (Feet): 6 Height (Inches): 0.00 Weight (Pounds): 148 Assessment/Plan Problem List: (1) Sepsis ICD Codes: A41.9 - Sepsis, unspecified organism SNOMED: 76191060 (2) Dehydration ICD Codes: E86.0 - Dehydration SNOMED: 38177371 (3) Hypernatremia ICD Codes: E87.0 - Hyperosmolality and hypernatremia SNOMED: 40545628 (4) Diabetes ICD Codes: E11.9 - Type 2 diabetes mellitus without complications SNOMED: 40453697 (5) UTI (urinary tract infection) ICD Codes: N39.0 - Urinary tract infection, site not specified SNOMED: 17980416 (6) HTN (hypertension) ICD Codes: I10 - Essential (primary) hypertension SNOMED: 99748327 (7) CVA (cerebral vascular accident) ICD Codes: I63.9 - Cerebral infarction, unspecified SNOMED: 708684161 (8) KORY (acute kidney injury) ICD Codes: N17.9 - Acute kidney failure, unspecified SNOMED: 4369607, 46311484 Status: progressing, unchanged Assessment/Plan: uti htn afebrile reviewed chart and labs and meds no acute events vitals stable Kaylen Hicks MD May 01, 2020 21:21
--- NOTE | 2020-05-01 21:45 | Consultation ---
DATE OF CONSULTATION: 04/28/2020 CARDIOLOGY CONSULTATION CONSULTING PHYSICIAN: Gama Whitney M.D. REFERRING PHYSICIAN: German Carlin D.O. REASON FOR CONSULTATION: Management of atrial arrhythmia. HISTORY OF PRESENT ILLNESS: The patient is a very unfortunate 80-year-old gentleman, who is a resident of a [place] [facility] facility and was brought to this hospital emergency department for evaluation and management of shortness of breath. The patient was found to be in respiratory distress according to the staff of the [facility] and he was hypoxic. On arrival of EMS, the patient's O2 saturation was 91%, which was improved on a non-rebreather mask. The patient had been recently admitted to outside facility for management of sepsis. The patient is unfortunately nonverbal. Therefore, this history is prepared by using the old records. The patient's risk factors for coronary artery disease includes diabetes mellitus. From the cardiovascular standpoint, the patient has suffered from CVA with left spastic hemiparesis. At the time of arrival to the emergency department, blood pressure was 115/41 mmHg and heart rate was 97. The patient had 2D echocardiography, which had shown normal LV systolic function with LVEF of approximately 55% to 60%, although the images were very difficult to obtain and the study was technically difficult. The patient did not have any appropriate evaluation of the right atrial and ventricular cavity size and assessment of pulmonary artery pressure. A 12-lead electrocardiogram at the time of arrival to the hospital showed sinus rhythm with evidence of sinus arrhythmia with no acute ischemic changes. The chest x-ray at the time of arrival to the hospital showed no acute cardiopulmonary disease. On 04/27/2020, the patient underwent a CT scan of the chest, which ruled in bilateral pulmonary emboli with equivocal evidence of right ventricular strain and cardiomegaly. The patient was started on heparin drip and was admitted to step-down unit. Cardiology consultation was made at request Dr. Carlin for management of atrial arrhythmia as the patient developed a variety of atrial rhythm as well as nonsustained ventricular tachycardia. PAST MEDICAL HISTORY: 1. CVA with left spastic hemiparesis. 2. History of COPD. 3. History of diabetes mellitus. 4. History of dysphagia. 5. History of sepsis, recently admitted to outside facility. REVIEW OF SYSTEMS: Cannot be obtained due to the patient's underlying dementia. ALLERGIES: No known drug allergies. FAMILY HISTORY: Unknown. SOCIAL HISTORY: Unable to obtain. MEDICATIONS: List of medications in the nursing facility includes: 1. Acetaminophen 650 q.4 h. as needed fever, headache, and mild pain. 2. ProStat 30 mL daily. 3. Aspirin 81 mg p.o. daily. 4. Dulcolax 10 mg rectal as needed constipation. 5. Colace 100 mg p.o. daily. 6. Folic acid 1 mg p.o. daily. 7. Heparin sodium 5000 units subcutaneously daily. 8. Hydralazine 10 mg q.4 h. p.r.n. systolic blood pressure 160 mmHg. 9. Humalog insulin. 10. DuoNeb as needed shortness of breath. 11. Lamictal 25 mg p.o. daily. 12. Lisinopril 20 mg p.o. twice daily. 13. Magnesium hydroxide 30 mL q.6 h. p.r.n. constipation, Namenda 4 5 mg p.o. twice daily. 14. Multivitamin 1 tab daily Fleet enema 133 mL rectal daily as needed constipation, 15. Nitroglycerin 0.4 mg sublingual every 5 minutes x3 doses as needed chest pain. 16. Zyprexa 5 mg p.o. daily. 17. Senna 2 tablets by mouth at bedtime. PHYSICAL EXAMINATION: VITAL SIGNS: Blood pressure was 115/41 mmHg, pulse of 97, respirations 18, temperature 97.2 degrees Fahrenheit, O2 saturation 97% on a non-rebreather mask. GENERAL: The patient is a very unfortunate, chronically ill 80-year-old gentleman, in mild respiratory distress on venturi mask. HEENT: Atraumatic and normocephalic. Anicteric. Bilateral temporal wasting. NECK: JVP is less than 5 cm. No carotid bruit. Carotid upstrokes 2+ bilaterally. CVS: Normal S1, S2. Irregularly irregular rhythm. A 2/6 mid systolic murmur at the left sternal border. PMI is at the fourth intercostal space in the midclavicular line. LUNGS: Diminished breath sounds in both bases. ABDOMEN: Soft, nontender, nondistended. No hepatosplenomegaly. Positive bowel sounds. EXTREMITIES: No evidence of edema, clubbing, or cyanosis. Left hemiparesis reported. LABORATORY AND DIAGNOSTIC DATA: Laboratory findings at the time of arrival to the hospital on 04/24/2020, WBC was 10.6, hemoglobin of 11.1, hematocrit of 35.2%, and platelet count is 194. Sodium was 159, potassium 3.8, chloride 125, bicarbonate 25, BUN of 39, creatinine 1.3, glucose is 131, calcium is 7.5, magnesium is 2.3. AST 46, ALT 26. Troponin I 0.044. ProBNP of 412. ASSESSMENT AND PLAN: The patient is a very unfortunate 80-year-old gentleman, who was seen in Cardiology consultation. 1. Dyspnea, most likely due to bilateral pulmonary emboli, chest x-ray on admission was within normal limits. The patient is currently on heparin drip, 2D echocardiography images were extremely poor. Could not identify RV strain. However, CT scan of the chest delineated presence of RV strain. The patient ultimately required to be on Eliquis treatment at the time of discharge. 2. Diabetes mellitus. He will require aspirin and statins. 3. History of CVA with left hemiparesis. Again, benefit from combination of aspirin and statin. 4. Hypoxic respiratory failure due to pulmonary embolism. 5. History of anemia. 6. History of dysphagia. I would like to thank, Dr. Carlin, for the courtesy of this consultation. Gama Whitney M.D. DR: HAMILTON JOB#: [id number] CC:
[2020-05-02] VITALS: BP 105/62
--- NOTE | 2020-05-02 | NUR ---
NURSE NOTES: Pt in bed, asleep. In no apparent cardiac and respiratory distress noted. Back on SR. Turned and repositioned patient. Will continue to monitor
[2020-05-02 04:00] VITALS: BP 125/75
[2020-05-02 05:30] LABS: BASOPHILS % (AUTO) 0.7 % (0.0-2.0); EOSINOPHILS % (AUTO) 5.3 % (0.0-3.0); HEMATOCRIT 29.5 % (42.0-52.0); HEMOGLOBIN 9.4 G/DL (14.2-18.0); LYMPHOCYTES % (AUTO) 14.6 % (20.0-45.0); MEAN CORPUSCULAR VOLUME 96 FL (80-99); MONOCYTES % (AUTO) 8.1 % (1.0-10.0); NEUTROPHILS % (AUTO) 71.2 % (45.0-75.0); PLATELET COUNT 176 K/UL (150-450); RED BLOOD COUNT 3.08 M/UL (4.70-6.10); RED CELL DISTRIBUTION WIDTH 14.1 % (11.6-14.8); WHITE BLOOD COUNT 5.5 K/UL (4.8-10.8)
[2020-05-02] MEDS: NovoLOG Insulin Flexpen SUBQ SCH ×4 (05:34→20:27)
[2020-05-02 06:06] LABS: ALANINE AMINOTRANSFERASE 51 U/L (12-78); ALBUMIN 1.3 G/DL (3.4-5.0); ALBUMIN/GLOBULIN RATIO 0.4 (1.0-2.7); ALKALINE PHOSPHATASE 93 U/L (46-116); ANION GAP 6 mmol/L (5-15); ASPARTATE AMINO TRANSFERASE 64 U/L (15-37); BILIRUBIN,TOTAL 0.5 MG/DL (0.2-1.0); BLOOD UREA NITROGEN 21 mg/dL (7-18); CALCIUM 7.4 MG/DL (8.5-10.1); CARBON DIOXIDE 25 MMOL/L (21-32); CHLORIDE 113 MMOL/L (98-107); CREATININE 0.8 MG/DL (0.55-1.30); POTASSIUM 3.6 MMOL/L (3.5-5.1); SODIUM 144 MMOL/L (136-145)
[2020-05-02 06:29] LABS: PHOSPHORUS 2.6 MG/DL (2.5-4.9)
--- NOTE | 2020-05-02 06:55 | Hematology/Onc Progress Note ---
Assessment/Plan Assessment/Plan # Bilateral pulmonary emboli on cta as well as Dvt on duplex --> Equivocal evidence of right heart strain; RV /LV ratio around 0.5 but is somewhat difficult to assess due to ventricular muscle hypertrophy --> duplex Positive for bilateral lower extremity deep venous thrombosis, as described --> continue on heparin gtt until stabilizes, then consider noac --> 04/29 started on eliquis # Anemia of chronic disease, anemia panel is noted --> r.o bleed now that is on hep gtt --> hgb 10-->8.7-->8.5-->9.4 -> no hemolysis is noted # Leukocytosis due to sepsis/uti --> ABX Cefepime/vanc --> smear is reviewed # COPD. --> breathing rx as needed # Diabetes mellitus --> iss, accuchecks qac and qhs # Schizophrenia. --> per psych recs # History of CVA with left hemiparesis. # Dementia. # Dysphagia with ngt # Folate def # Dvt ppx eliquis Appreciate consultation and jorge l Coon Subjective Constitutional: Denies: no symptoms, chills, fever, malaise, weakness, other HEENT: Denies: no symptoms, eye pain, blurred vision, tearing, double vision, ear pain, ear discharge, nose pain, nose congestion, throat pain, throat swelling, mouth pain, mouth swelling, other Cardiovascular: Denies: no symptoms, chest pain, edema, irregular heart rate, lightheadedness, palpitations, syncope, other Respiratory: Denies: no symptoms, cough, shortness of breath, SOB with excertion, SOB at rest, sputum, wheezing, other Genitourinary: Denies: no symptoms, burning, discharge, frequency, flank pain, hematuria, incontinence, pain, urgency, other Endocrine: Denies: no symptoms, excessive sweating, flushing, intolerance to cold, intolerance to heat, increased hunger, increased thirst, increased urine, unexplained weight gain, unexplained weight loss, other Allergies: Coded Allergies: No Known Allergies (Unverified , 06/11/17) Subjective 04/29 remains on heparin gtt, labs noted, no bleeding, h/h stable, on folate 04/30 meds noted, changed to apixaban, labs noted 05/02 asleep, no bleeding, meds noted, labs reviewed, on noac Objective Objective Current Medications Medications (Trade) Dose Ordered Sig/Lopez Route PRN Reason Start Time Stop Time Status Last Admin Dose Admin Acetaminophen (Tylenol) 650 mg Q4H PRN ORAL fever 04/25/20 00:00 05/25/20 00:00 Apixaban (Eliquis) 5 mg BID ORAL 05/06/20 18:00 08/04/20 17:59 Apixaban (Eliquis) 10 mg BID ORAL 04/29/20 18:00 05/06/20 09:01 05/01/20 17:21 Chlorhexidine Gluconate (Arpita-Hex 2%) 1 applic DAILY@1999 TOPIC 04/29/20 20:00 07/28/20 19:59 05/01/20 20:10 Dextrose (Dextrose 50%) 25 ml Q30M PRN IV Hypoglycemia 04/25/20 00:00 07/24/20 00:00 Dextrose (Dextrose 50%) 50 ml Q30M PRN IV Hypoglycemia 04/25/20 00:00 07/24/20 00:00 Folic Acid (Folate) 1 mg DAILY ORAL 04/29/20 09:00 05/29/20 08:59 05/01/20 08:45 Insulin Aspart (NovoLOG) BEFORE MEALS AND HS SUBQ 04/25/20 06:30 07/24/20 06:29 04/28/20 06:22 Lamotrigine (LaMICtal) 25 mg DAILY ORAL 04/25/20 09:00 05/25/20 08:59 05/01/20 08:45 Memantine (Namenda) 5 mg TWICE A DAY ORAL 04/25/20 09:00 05/25/20 08:59 05/01/20 17:21 Metoprolol Tartrate (Lopressor) 50 mg BID GT 05/01/20 20:00 07/30/20 19:59 05/01/20 20:10 Olanzapine (ZyPREXA) 5 mg DAILY ORAL 04/25/20 09:00 06/09/20 08:59 05/01/20 08:45 Ondansetron HCl (Zofran) 4 mg Q6H PRN IVP Nausea & Vomiting 04/25/20 00:00 05/25/20 00:00 Polyethylene Glycol (Miralax) 17 gm DAILYPRN PRN ORAL Constipation 04/25/20 00:00 05/25/20 00:00 Potassium Chloride (K-Dur) 20 meq TWICE A DAY GT 05/01/20 12:15 07/30/20 12:14 05/01/20 17:21 Quetiapine Fumarate (SEROqueL) 50 mg Q12HR ORAL 04/27/20 11:30 06/11/20 11:29 05/01/20 20:11 Last 24 Hour Vital Signs Date Time Temp Pulse Resp B/P (MAP) Pulse Ox O2 Delivery O2 Flow Rate FiO2 05/02/20 05:24 74 20 97 60 05/02/20 04:00 98.1 72 24 125/75 (92) 97 05/02/20 04:00 72 05/02/20 04:00 60 05/02/20 04:00 Bi-pap 05/02/20 03:30 68 20 92 60 05/02/20 01:16 66 23 97 60 05/02/20 00:00 97.7 68 22 105/62 (76) 99 05/02/20 00:00 Bi-pap 05/01/20 23:52 65 05/01/20 23:16 64 25 99 60 05/01/20 20:43 91 24 94 60 05/01/20 20:10 97 122/70 05/01/20 20:00 92 Bi-Pap 60 05/01/20 20:00 60 05/01/20 20:00 Bi-pap 05/01/20 20:00 98.2 97 20 122/70 (87) 98 05/01/20 19:51 84 05/01/20 19:30 90 23 92 60 05/01/20 17:21 92 21 100 60 05/01/20 16:00 60 05/01/20 16:00 Bi-pap 05/01/20 16:00 98.2 80 22 137/62 (87) 98 05/01/20 15:45 78 05/01/20 15:31 93 05/01/20 15:10 84 21 100 60 05/01/20 13:20 78 20 100 60 05/01/20 12:00 Bi-pap 05/01/20 12:00 81 05/01/20 12:00 60 05/01/20 12:00 96.8 78 20 131/77 (95) 96 05/01/20 11:07 74 19 100 60 05/01/20 09:18 75 19 99 60 05/01/20 08:00 60 05/01/20 08:00 Bi-pap 05/01/20 08:00 76 05/01/20 08:00 98.1 61 21 130/81 (97) 98 05/01/20 06:50 69 19 99 60 05/01/20 06:50 99 Bi-Pap 60 05/01/20 05:03 79 18 98 60 05/01/20 04:00 60 05/01/20 04:00 Bi-pap 05/01/20 04:00 97.9 78 20 120/71 (87) 99 05/01/20 03:45 78 05/01/20 02:46 80 17 97 60 05/01/20 00:52 83 17 98 60 05/01/20 00:00 Bi-pap 05/01/20 00:00 60 05/01/20 00:00 98.1 88 20 139/75 (96) 100 04/30/20 23:48 86 04/30/20 22:51 88 18 100 60 04/30/20 20:38 89 21 98 70 04/30/20 20:00 60 04/30/20 20:00 98.7 86 19 149/65 (93) 98 04/30/20 20:00 Bi-pap 04/30/20 19:28 87 04/30/20 19:04 98 Bi-Pap 60 04/30/20 18:54 86 17 98 60 04/30/20 17:30 86 17 99 60 04/30/20 16:00 97.1 70 18 136/73 (94) 96 04/30/20 16:00 60 04/30/20 16:00 Bi-pap 04/30/20 16:00 85 04/30/20 15:30 85 17 97 60 04/30/20 13:31 82 17 99 60 04/30/20 12:12 98.7 71 17 143/67 (92) 99 04/30/20 12:00 Bi-pap 04/30/20 12:00 82 04/30/20 11:40 60 04/30/20 11:30 85 18 99 60 04/30/20 09:40 76 17 97 70 04/30/20 08:00 70 04/30/20 08:00 Bi-pap 04/30/20 08:00 98.1 72 22 128/39 (68) 100 04/30/20 08:00 68 04/30/20 07:40 98 Bi-Pap 70 04/30/20 07:10 68 17 98 70 Intake and Output 05/01/20 05/02/20 19:00 07:00 Intake Total 670 ml 300 ml Output Total 2100 ml 550 ml Balance -1430 ml -250 ml Free Water 60 ml 80 ml IV Total 430 ml Tube Feeding 180 ml 220 ml Output Urine Total 2100 ml 550 ml # Bowel Movements 1 Labs Test 04/29/20 12:03 04/29/20 12:10 04/29/20 13:25 04/29/20 17:16 POC Whole Blood Glucose 129 MG/DL (74-106) 95 MG/DL (74-106) Activated Partial Thromboplast Time 70 SEC (23-33) Arterial Blood pH 7.490 (7.350-7.450) Arterial Blood Partial Pressure CO2 28.9 mmHg (35.0-45.0) Arterial Blood Partial Pressure O2 56.3 mmHg (75.0-100.0) Arterial Blood HCO3 21.5 mmol/L (22.0-26.0) Arterial Blood Oxygen Saturation 92.2 % (95-100) Arterial Blood Base Excess -1.3 (-2-2) Pepe Test Positive Test 04/29/20 20:41 04/30/20 01:00 04/30/20 01:31 04/30/20 04:00 Vancomycin Level Trough 19.2 ug/mL (5.0-12.0) Arterial Blood pH 7.430 (7.350-7.450) Arterial Blood Partial Pressure CO2 32.7 mmHg (35.0-45.0) Arterial Blood Partial Pressure O2 44.1 mmHg (75.0-100.0) Arterial Blood HCO3 21.2 mmol/L (22.0-26.0) Arterial Blood Oxygen Saturation 81.9 % (95-100) Arterial Blood Base Excess -2.5 (-2-2) Pepe Test Positive White Blood Count 6.4 K/UL (4.8-10.8) Red Blood Count 2.77 M/UL (4.70-6.10) Hemoglobin 8.6 G/DL (14.2-18.0) Hematocrit 27.3 % (42.0-52.0) Mean Corpuscular Volume 99 FL (80-99) Mean Corpuscular Hemoglobin 31.0 PG (27.0-31.0) Mean Corpuscular Hemoglobin Concent 31.4 G/DL (32.0-36.0) Red Cell Distribution Width 13.9 % (11.6-14.8) Platelet Count 120 K/UL (150-450) Mean Platelet Volume 7.1 FL (6.5-10.1) Neutrophils (%) (Auto) 72.7 % (45.0-75.0) Lymphocytes (%) (Auto) 15.4 % (20.0-45.0) Monocytes (%) (Auto) 6.9 % (1.0-10.0) Eosinophils (%) (Auto) 4.6 % (0.0-3.0) Basophils (%) (Auto) 0.4 % (0.0-2.0) Sodium Level 146 MMOL/L (136-145) Potassium Level 3.5 MMOL/L (3.5-5.1) Chloride Level 117 MMOL/L (98-107) Carbon Dioxide Level 22 MMOL/L (21-32) Blood Urea Nitrogen 24 mg/dL (7-18) Creatinine 0.9 MG/DL (0.55-1.30) Estimat Glomerular Filtration Rate > 60 mL/min (>60) Glucose Level 125 MG/DL (74-106) Calcium Level 7.4 MG/DL (8.5-10.1) Phosphorus Level 2.2 MG/DL (2.5-4.9) Magnesium Level 1.9 MG/DL (1.8-2.4) Total Bilirubin 0.4 MG/DL (0.2-1.0) Aspartate Amino Transf (AST/SGOT) 55 U/L (15-37) Alanine Aminotransferase (ALT/SGPT) 26 U/L (12-78) Alkaline Phosphatase 95 U/L (46-116) C-Reactive Protein, Quantitative 20.1 mg/dL (0.00-0.90) Total Protein 4.3 G/DL (6.4-8.2) Albumin 1.2 G/DL (3.4-5.0) Globulin 3.1 g/dL Albumin/Globulin Ratio 0.4 (1.0-2.7) Test 04/30/20 05:52 04/30/20 11:10 04/30/20 13:12 04/30/20 17:04 POC Whole Blood Glucose 114 MG/DL (74-106) 117 MG/DL (74-106) 88 MG/DL (74-106) Erythrocyte Sedimentation Rate 115 MM/HR (0-20) Test 04/30/20 20:05 05/01/20 04:00 05/01/20 04:55 05/01/20 11:46 White Blood Count 4.9 K/UL (4.8-10.8) Red Blood Count 2.56 M/UL (4.70-6.10) Hemoglobin 7.8 G/DL (14.2-18.0) Hematocrit 25.1 % (42.0-52.0) Mean Corpuscular Volume 98 FL (80-99) Mean Corpuscular Hemoglobin 30.3 PG (27.0-31.0) Mean Corpuscular Hemoglobin Concent 30.9 G/DL (32.0-36.0) Red Cell Distribution Width 13.8 % (11.6-14.8) Platelet Count 141 K/UL (150-450) Mean Platelet Volume 7.1 FL (6.5-10.1) Neutrophils (%) (Auto) % (45.0-75.0) Lymphocytes (%) (Auto) % (20.0-45.0) Monocytes (%) (Auto) % (1.0-10.0) Eosinophils (%) (Auto) % (0.0-3.0) Basophils (%) (Auto) % (0.0-2.0) Differential Total Cells Counted 100 Neutrophils % (Manual) 79 % (45-75) Lymphocytes % (Manual) 9 % (20-45) Monocytes % (Manual) 5 % (1-10) Eosinophils % (Manual) 6 % (0-3) Basophils % (Manual) 0 % (0-2) Myelocytes % 1 % (0-0) Band Neutrophils 0 % (0-8) Platelet Estimate Decreased Platelet Morphology Normal Hypochromasia 1+ Erythrocyte Sedimentation Rate 101 MM/HR (0-20) Sodium Level 136 MMOL/L (136-145) Potassium Level 3.5 MMOL/L (3.5-5.1) Chloride Level 107 MMOL/L (98-107) Carbon Dioxide Level 22 MMOL/L (21-32) Anion Gap 7 mmol/L (5-15) Blood Urea Nitrogen 21 mg/dL (7-18) Creatinine 0.8 MG/DL (0.55-1.30) Estimat Glomerular Filtration Rate > 60 mL/min (>60) Glucose Level 388 MG/DL (74-106) Calcium Level 6.7 MG/DL (8.5-10.1) Phosphorus Level 2.7 MG/DL (2.5-4.9) Magnesium Level 1.9 MG/DL (1.8-2.4) C-Reactive Protein, Quantitative 16.2 mg/dL (0.00-0.90) Pro-B-Type Natriuretic Peptide 589 pg/mL (0-125) POC Whole Blood Glucose 125 MG/DL (74-106) Test 05/01/20 16:37 05/01/20 20:15 05/02/20 04:30 05/02/20 05:34 POC Whole Blood Glucose 126 MG/DL (74-106) 100 MG/DL (74-106) 96 MG/DL (74-106) White Blood Count 5.5 K/UL (4.8-10.8) Red Blood Count 3.08 M/UL (4.70-6.10) Hemoglobin 9.4 G/DL (14.2-18.0) Hematocrit 29.5 % (42.0-52.0) Mean Corpuscular Volume 96 FL (80-99) Mean Corpuscular Hemoglobin 30.7 PG (27.0-31.0) Mean Corpuscular Hemoglobin Concent 32.0 G/DL (32.0-36.0) Red Cell Distribution Width 14.1 % (11.6-14.8) Platelet Count 176 K/UL (150-450) Mean Platelet Volume 7.3 FL (6.5-10.1) Neutrophils (%) (Auto) 71.2 % (45.0-75.0) Lymphocytes (%) (Auto) 14.6 % (20.0-45.0) Monocytes (%) (Auto) 8.1 % (1.0-10.0) Eosinophils (%) (Auto) 5.3 % (0.0-3.0) Basophils (%) (Auto) 0.7 % (0.0-2.0) Sodium Level 144 MMOL/L (136-145) Potassium Level 3.6 MMOL/L (3.5-5.1) Chloride Level 113 MMOL/L (98-107) Carbon Dioxide Level 25 MMOL/L (21-32) Anion Gap 6 mmol/L (5-15) Blood Urea Nitrogen 21 mg/dL (7-18) Creatinine 0.8 MG/DL (0.55-1.30) Estimat Glomerular Filtration Rate > 60 mL/min (>60) Glucose Level 104 MG/DL (74-106) Calcium Level 7.4 MG/DL (8.5-10.1) Phosphorus Level 2.6 MG/DL (2.5-4.9) Magnesium Level 2.1 MG/DL (1.8-2.4) Total Bilirubin 0.5 MG/DL (0.2-1.0) Aspartate Amino Transf (AST/SGOT) 64 U/L (15-37) Alanine Aminotransferase (ALT/SGPT) 51 U/L (12-78) Alkaline Phosphatase 93 U/L (46-116) Pro-B-Type Natriuretic Peptide 709 pg/mL (0-125) Total Protein 4.5 G/DL (6.4-8.2) Albumin 1.3 G/DL (3.4-5.0) Globulin 3.2 g/dL Albumin/Globulin Ratio 0.4 (1.0-2.7) Height (Feet): 6 Height (Inches): 0.00 Weight (Pounds): 148 Sree Dubon MD May 02, 2020 06:55
--- NOTE | 2020-05-02 07:47 | NUR ---
NURSE HAND-OFF REPORT: Important Events on Shift: Collect Stool for OB Patient Status: Stable Diet: Vital AF @20 cc/hr Pending Orders: Pending Results/Labs: Pending MD notification: Latest Vital Signs: Temperature 98.1 , Pulse 71 , B/P 125 /75 , Respiratory Rate 21 , O2 SAT 93 , Bi-pap, O2 Flow Rate . Vital Sign Comment: EKG Rhythm: Sinus Rhythm Rhythm change?: N MD Notified?: N -Dr. Tesfaye SAAVEDRA Response: Latest Andersen Fall Score: 70 Fall Risk: High Risk Safety Measures: Call light Within Reach, Bed Alarm Zone 2, Side Rails Side Rails x3, Bed position Low and Locked. Fall Precautions: Yellow Socks Yellow Gown Door Sign Patient Fall Education Report given to Shaggy Finley .
--- NOTE | 2020-05-02 07:50 | NUR ---
NURSE NOTES: Report received from Josias Reddy RN.Pt asleep noted no resp distress on BIPAP 12/5,Fio2 60%,no signs of pain or discomfort ,SR on the monitor,NGT feeding Vital AF 1.2 at 20 ml /hr,no residual noted,in placed per auscultation,Contreras cath draining yellow ,skin warm and dry with multiple skin breaks,,IV sites X3 ELI PICC LINE ,RAC and LAC all intact SR up x3 HOB elevated,bed lock in lowest position will continue with plans of care.
[2020-05-02 08:00] VITALS: BP 109/63
--- NOTE | 2020-05-02 09:02 | General Progress Note ---
Subjective ROS Limited/Unobtainable: No Allergies: Coded Allergies: No Known Allergies (Unverified , 06/11/17) Objective Last 24 Hour Vital Signs Date Time Temp Pulse Resp B/P (MAP) Pulse Ox O2 Delivery O2 Flow Rate FiO2 05/02/20 08:00 60 05/02/20 08:00 98.4 68 18 109/63 (78) 100 05/02/20 08:00 73 05/02/20 07:38 93 Bi-Pap 60 05/02/20 06:55 71 21 93 60 05/02/20 05:24 74 20 97 60 05/02/20 04:00 98.1 72 24 125/75 (92) 97 05/02/20 04:00 72 05/02/20 04:00 60 05/02/20 04:00 Bi-pap 05/02/20 03:30 68 20 92 60 05/02/20 01:16 66 23 97 60 05/02/20 00:00 97.7 68 22 105/62 (76) 99 05/02/20 00:00 Bi-pap 05/01/20 23:52 65 05/01/20 23:16 64 25 99 60 05/01/20 20:43 91 24 94 60 05/01/20 20:10 97 122/70 05/01/20 20:00 92 Bi-Pap 60 05/01/20 20:00 60 05/01/20 20:00 Bi-pap 05/01/20 20:00 98.2 97 20 122/70 (87) 98 05/01/20 19:51 84 05/01/20 19:30 90 23 92 60 05/01/20 17:21 92 21 100 60 05/01/20 16:00 60 05/01/20 16:00 Bi-pap 05/01/20 16:00 98.2 80 22 137/62 (87) 98 05/01/20 15:45 78 05/01/20 15:31 93 05/01/20 15:10 84 21 100 60 05/01/20 13:20 78 20 100 60 05/01/20 12:00 Bi-pap 05/01/20 12:00 81 05/01/20 12:00 60 05/01/20 12:00 96.8 78 20 131/77 (95) 96 11/14/20 11:07 74 19 100 60 05/01/20 09:18 75 19 99 60 Intake and Output 05/01/20 05/02/20 18:59 06:59 Intake Total 725 ml 320 ml Output Total 2500 ml 550 ml Balance -1775 ml -230 ml Free Water 60 ml 80 ml IV Total 505 ml Tube Feeding 160 ml 240 ml Output Urine Total 2500 ml 550 ml # Bowel Movements 2 Laboratory Tests 05/01/20 11:46: POC Whole Blood Glucose 125H 05/01/20 16:37: POC Whole Blood Glucose 126H 05/01/20 20:15: POC Whole Blood Glucose 100 05/02/20 04:30: White Blood Count 5.5, Red Blood Count 3.08L, Hemoglobin 9.4L, Hematocrit 29.5L, Mean Corpuscular Volume 96, Mean Corpuscular Hemoglobin 30.7, Mean Corpuscular Hemoglobin Concent 32.0, Red Cell Distribution Width 14.1, Platelet Count 176, Mean Platelet Volume 7.3, Neutrophils (%) (Auto) 71.2, Lymphocytes (%) (Auto) 14.6L, Monocytes (%) (Auto) 8.1, Eosinophils (%) (Auto) 5.3H, Basophils (%) (Auto) 0.7, Sodium Level 144, Potassium Level 3.6, Chloride Level 113H, Carbon Dioxide Level 25, Anion Gap 6, Blood Urea Nitrogen 21H, Creatinine 0.8, Estimat Glomerular Filtration Rate > 60, Glucose Level 104#, Calcium Level 7.4L, Phosphorus Level 2.6, Magnesium Level 2.1, Total Bilirubin 0.5, Aspartate Amino Transf (AST/SGOT) 64H, Alanine Aminotransferase (ALT/SGPT) 51, Alkaline Phosphatase 93, Pro-B-Type Natriuretic Peptide 709H, Total Protein 4.5L, Albumin 1.3L, Globulin 3.2, Albumin/Globulin Ratio 0.4L 05/02/20 05:34: POC Whole Blood Glucose 96 Height (Feet): 6 Height (Inches): 0.00 Weight (Pounds): 148 General Appearance: lethargic EENT: normal ENT inspection Neck: supple Cardiovascular: tachycardia Respiratory/Chest: decreased breath sounds Abdomen: hypoactive bowel sounds Extremities: non-tender Assessment/Plan Status: progressing, unchanged Assessment/Plan: 1. COPD. 2. Diabetes. 3. Schizophrenia. 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 5. Dementia. 6. Anemia 7. Dysphagia 8. Folate def NGTF on low dose given patient on BIPAP folate not stable for PEG on BIPAP neg stool ob>>> neg will Nathan Kemp MD May 02, 2020 09:02
[2020-05-02] MEDS: Eliquis 5mg tablet ORAL SCH ×2 (10:06→18:24)
[2020-05-02] MEDS: Metoprolol Tartrate 50mg tab GT SCH ×2 (10:06→18:25)
[2020-05-02] MEDS: Memantine 10mg tab ORAL SCH ×2 (10:11→18:23)
--- NOTE | 2020-05-02 11:07 | Psychiatry Consultation ---
Psychiatry Consultation Psychiatry Consultation Chief Complaint: Dyspnea/Respdistress History of Present Illness: 80-year-old male patient with respiratory failure causing him to have a decline in cognition below his baseline His attending has requested daily psychiatric consultation Improve his cognition closer to his baseline mental status examination: 80-year-old male appearance is disheveled attitude irritable agitated mood depressed anxious motor activity psychomotor agitation attention span is poor orientation x2 speech is nonsensical thought process disorganized logical insight judgment is poor Allergies: Coded Allergies: No Known Allergies (Unverified , 06/11/17) Medication History Scheduled Amino Acids/Protein Hydrolys (Pro-Stat Liquid), 30 ML ORAL DAILY, (Reported) Aspirin (Aspirin EC), 81 MG ORAL DAILY, (Reported) Docusate Sodium* (Colace*), 100 MG ORAL DAILY, (Reported) Folic Acid* (Folic Acid*), 1 MG ORAL DAILY, (Reported) Heparin Sod (Porcine) (Heparin Sodium*), 5,000 UNITS SUBQ DAILY, (Reported) Lamotrigine* (Lamictal*), 25 MG ORAL DAILY, (Reported) Lisinopril (Lisinopril*), 20 MG ORAL BID, (Reported) Memantine Hcl* (Namenda*), 5 MG ORAL TWICE A DAY, (Reported) Multivitamin With Minerals (Multivitamins With Minerals*), 1 TAB ORAL DAILY, (Reported) Olanzapine* (Zyprexa*), 5 MG ORAL DAILY, (Reported) Sennosides (Senna), 2 TAB PO BEDTIME, (Reported) Scheduled PRN Acetaminophen* (Acetaminophen 325MG Tablet*), 650 MG ORAL Q4H PRN for Fever/Headache/Mild Pain, (Reported) Bisacodyl (Dulcolax), 10 MG RC for Constipation, (Reported) Hydralazine Hcl* (Hydralazine Hcl*), 10 MG ORAL Q4HR PRN for SBP > 160 , (Reported) Ipratropium/Albuterol Sulfate (DuoNeb 0.5-3(2.5)mg/3ml), 1 UNIT HHN EVERY 6 HOURS PRN for Shortness of Breath, (Reported) Magnesium Hydroxide* (Milk Of Magnesia*), 30 ML ORAL EVERY 6 HOURS PRN for Constipation, (Reported) Na Phos,M-B/Na Phos,Di-Ba* (Fleet Enema*), 133 ML RECTAL DAILY PRN for Constipation, (Reported) Nitroglycerin 0.4MG table* (Nitroglycerin*), 0.4 MG SL .Q5MIN X 3 DOSES PRN for CHEST PAIN, (Reported) Miscellaneous Medications Insulin Lispro (Humalog), 0 SUBQ, (Reported) Discontinued Medications Ascorbic Acid* (Vitamin C*), 500 MG ORAL DAILY, (Reported) Discontinued Reason: Pt stopped taking med Benazepril Hcl* (Lotensin*), 20 MG ORAL BID, (Reported) Discontinued Reason: Pt stopped taking med Calcium Carbonate/Vitamin D3 (Calcium 500 + Vit D 200 Tablet), 1 EACH PO BID, (Reported) Discontinued Reason: Pt stopped taking med Cranberry Extract (Cranberry), 425 MG PO, (Reported) Discontinued Reason: Pt stopped taking med Escitalopram Oxalate* (Lexapro*), 10 MG ORAL DAILY, (Reported) Discontinued Reason: Pt stopped taking med Folic Acid/Vitamin B Comp W-C (Sarah-Ruben Tablet), 0.8 MG PO DAILY, (Reported) Discontinued Reason: Pt stopped taking med Insulin Aspart* (Novolog*), 0 SUBQ BEFORE MEALS AND HS, (Reported) Discontinued Reason: Pt stopped taking med Lamotrigine* (Lamictal*), 25 MG ORAL DAILY, (Reported) Discontinued Reason: Pt stopped taking med Levofloxacin* (Levaquin*), 750 MG ORAL DAILY, (Reported) Discontinued Reason: Pt stopped taking med Lisinopril* (Lisinopril*), 20 MG ORAL DAILY, (Reported) Discontinued Reason: Prescription changed Lorazepam* (Ativan*), 0.5 MG ORAL EVERY 6 HOURS, (Reported) Discontinued Reason: Pt stopped taking med Memantine Hcl* (Namenda*), 5 MG ORAL DAILY, (Reported) Discontinued Reason: Pt stopped taking med Olanzapine* (Zyprexa*), 5 MG ORAL HS, (Reported) Discontinued Reason: Pt stopped taking med Temazepam* (Restoril*), 15 MG ORAL BEDTIME PRN for Insomnia, (Reported) Discontinued Reason: Pt stopped taking med Vitamin B Cmplx/Vit C/Folic AC (Nephro-Ruben Tablet), 1 TAB ORAL DAILY, (Reported) Discontinued Reason: Pt stopped taking med Objective Data Height (Feet): 6 Height (Inches): 0.00 Weight (Pounds): 148 Assessment/Plan Assessment/Plan: Continue the patient on Lamictal, Zyprexa, Ativan and Namenda. 20min of insight oriented psychotherapy to help him recognize his psychical and cogintive deficits so that he has less depression and better impulse control. Diagnosis [place] I: Schizoaffective bipolar type Dakota Monroe MD May 02, 2020 11:07
[2020-05-02 11:48] VITALS: BP 109/55
--- NOTE | 2020-05-02 12:00 | NUR ---
NURSE NOTES: Pt resting in bed very lethargic noted no resp distress,pulled up repositioned to sides .
--- NOTE | 2020-05-02 13:37 | General Progress Note ---
Subjective ROS Limited/Unobtainable: Yes Allergies: Coded Allergies: No Known Allergies (Unverified , 06/11/17) Objective Last 24 Hour Vital Signs Date Time Temp Pulse Resp B/P (MAP) Pulse Ox O2 Delivery O2 Flow Rate FiO2 05/02/20 12:00 65 05/02/20 12:00 Bi-pap 15.0 05/02/20 12:00 60 05/02/20 11:48 97.2 61 20 109/55 (73) 100 05/02/20 10:37 65 20 99 60 05/02/20 10:06 63 109/63 05/02/20 08:56 63 19 99 60 05/02/20 08:00 60 05/02/20 08:00 98.4 68 18 109/63 (78) 100 05/02/20 08:00 Bi-pap 15.0 05/02/20 08:00 73 05/02/20 07:38 93 Bi-Pap 60 05/02/20 06:55 71 21 93 60 05/02/20 05:24 74 20 97 60 05/02/20 04:00 98.1 72 24 125/75 (92) 97 05/02/20 04:00 72 05/02/20 04:00 60 05/02/20 04:00 Bi-pap 05/02/20 03:30 68 20 92 60 05/02/20 01:16 66 23 97 60 05/02/20 00:00 97.7 68 22 105/62 (76) 99 05/02/20 00:00 Bi-pap 05/01/20 23:52 65 05/01/20 23:16 64 25 99 60 05/01/20 20:43 91 24 94 60 05/01/20 20:10 97 122/70 05/01/20 20:00 92 Bi-Pap 60 05/01/20 20:00 60 05/01/20 20:00 Bi-pap 05/01/20 20:00 98.2 97 20 122/70 (87) 98 05/01/20 19:51 84 05/01/20 19:30 90 23 92 60 05/01/20 17:21 92 21 100 60 05/01/20 16:00 60 05/01/20 16:00 Bi-pap 05/01/20 16:00 98.2 80 22 137/62 (87) 98 05/01/20 15:45 78 05/01/20 15:31 93 05/01/20 15:10 84 21 100 60 Intake and Output 05/01/20 05/02/20 19:00 07:00 Intake Total 920 ml 300 ml Output Total 2100 ml 550 ml Balance -1180 ml -250 ml Free Water 60 ml 80 ml IV Total 430 ml Tube Feeding 180 ml 220 ml Blood Product 250 ml Output Urine Total 2100 ml 550 ml # Bowel Movements 1 Laboratory Tests 05/01/20 16:37: POC Whole Blood Glucose 126H 05/01/20 20:15: POC Whole Blood Glucose 100 05/02/20 04:30: White Blood Count 5.5, Red Blood Count 3.08L, Hemoglobin 9.4L, Hematocrit 29.5L, Mean Corpuscular Volume 96, Mean Corpuscular Hemoglobin 30.7, Mean Corpuscular Hemoglobin Concent 32.0, Red Cell Distribution Width 14.1, Platelet Count 176, Mean Platelet Volume 7.3, Neutrophils (%) (Auto) 71.2, Lymphocytes (%) (Auto) 14.6L, Monocytes (%) (Auto) 8.1, Eosinophils (%) (Auto) 5.3H, Basophils (%) (Auto) 0.7, Sodium Level 144, Potassium Level 3.6, Chloride Level 113H, Carbon Dioxide Level 25, Anion Gap 6, Blood Urea Nitrogen 21H, Creatinine 0.8, Estimat Glomerular Filtration Rate > 60, Glucose Level 104#, Calcium Level 7.4L, Phosphorus Level 2.6, Magnesium Level 2.1, Total Bilirubin 0.5, Aspartate Amino Transf (AST/SGOT) 64H, Alanine Aminotransferase (ALT/SGPT) 51, Alkaline Phosphatase 93, Pro-B-Type Natriuretic Peptide 709H, Total Protein 4.5L, Albumin 1.3L, Globulin 3.2, Albumin/Globulin Ratio 0.4L 05/02/20 05:34: POC Whole Blood Glucose 96 05/02/20 12:04: POC Whole Blood Glucose 92 Height (Feet): 6 Height (Inches): 0.00 Weight (Pounds): 148 Assessment/Plan Problem List: (1) Sepsis ICD Codes: A41.9 - Sepsis, unspecified organism SNOMED: 83150360 (2) Dehydration ICD Codes: E86.0 - Dehydration SNOMED: 47543191 (3) Hypernatremia ICD Codes: E87.0 - Hyperosmolality and hypernatremia SNOMED: 92123491 (4) Diabetes ICD Codes: E11.9 - Type 2 diabetes mellitus without complications SNOMED: 41737837 (5) UTI (urinary tract infection) ICD Codes: N39.0 - Urinary tract infection, site not specified SNOMED: 30972176 (6) HTN (hypertension) ICD Codes: I10 - Essential (primary) hypertension SNOMED: 95095128 (7) CVA (cerebral vascular accident) ICD Codes: I63.9 - Cerebral infarction, unspecified SNOMED: 813306549 (8) KORY (acute kidney injury) ICD Codes: N17.9 - Acute kidney failure, unspecified SNOMED: 7128205, 55335638 Status: progressing, unchanged Assessment/Plan: uti htn afebrile reviewed chart and labs abx per id no change Kaylen Hicks MD May 02, 2020 13:37
--- NOTE | 2020-05-02 13:46 | Nephrology Progress Note ---
Assessment/Plan Problem List: (1) KORY (acute kidney injury) (2) Hypernatremia (3) Dehydration (4) Acute respiratory failure Assessment Patient presents with acute hypoxic respiratory failure requiring BiPAP Sepsis lactic acidosis KORY Dehydration, hypernatremia History of COPD Anemia Low BMI, malnutrition. BMI of 20.1 History of CVA History of diabetes mellitus Plan May 02: Serum sodium up to 144. Stable from renal standpoint of view. Continue per consultants. May 01: Serum serum sodium 136. Will stop D5W IV fluid. 1 dose of Lasix IV. Potassium supplement. Continue to monitor electrolytes. Continue per consultants. April 30: Serum sodium 146. Low phosphorus replaced. Continue pulmonary support and per consultants. April 29: Serum sodium normalized. Electrolytes within normal limit. Remains on nonrebreather mask. Continue per consultants. April 28: Continue D5W. Abnormal electrolytes addressed. Continue per consultants. Remains full code. Remains on nonrebreather mask. April 27: Continue D5W. Continue pulmonary support. Monitor renal parameters and electrolytes. Continue per consultants. Patient full code. Remains on nonrebreathing mask. Contreras catheter IV D5W Monitor electrolytes and renal parameters Antibiotics Avoid nephrotoxic's 2D echocardiogram Per orders Subjective ROS Limited/Unobtainable: Yes Objective Objective Last 24 Hour Vital Signs Date Time Temp Pulse Resp B/P (MAP) Pulse Ox O2 Delivery O2 Flow Rate FiO2 05/02/20 12:00 65 05/02/20 12:00 Bi-pap 15.0 05/02/20 12:00 60 05/02/20 11:48 97.2 61 20 109/55 (73) 100 05/02/20 10:37 65 20 99 60 05/02/20 10:06 63 109/63 05/02/20 08:56 63 19 99 60 05/02/20 08:00 60 05/02/20 08:00 98.4 68 18 109/63 (78) 100 05/02/20 08:00 Bi-pap 15.0 05/02/20 08:00 73 05/02/20 07:38 93 Bi-Pap 60 05/02/20 06:55 71 21 93 60 05/02/20 05:24 74 20 97 60 05/02/20 04:00 98.1 72 24 125/75 (92) 97 05/02/20 04:00 72 05/02/20 04:00 60 05/02/20 04:00 Bi-pap 05/02/20 03:30 68 20 92 60 05/02/20 01:16 66 23 97 60 05/02/20 00:00 97.7 68 22 105/62 (76) 99 05/02/20 00:00 Bi-pap 05/01/20 23:52 65 05/01/20 23:16 64 25 99 60 05/01/20 20:43 91 24 94 60 05/01/20 20:10 97 122/70 05/01/20 20:00 92 Bi-Pap 60 05/01/20 20:00 60 05/01/20 20:00 Bi-pap 05/01/20 20:00 98.2 97 20 122/70 (87) 98 05/01/20 19:51 84 05/01/20 19:30 90 23 92 60 05/01/20 17:21 92 21 100 60 05/01/20 16:00 60 05/01/20 16:00 Bi-pap 05/01/20 16:00 98.2 80 22 137/62 (87) 98 05/01/20 15:45 78 05/01/20 15:31 93 05/01/20 15:10 84 21 100 60 Intake and Output 05/01/20 05/02/20 19:00 07:00 Intake Total 920 ml 300 ml Output Total 2100 ml 550 ml Balance -1180 ml -250 ml Free Water 60 ml 80 ml IV Total 430 ml Tube Feeding 180 ml 220 ml Blood Product 250 ml Output Urine Total 2100 ml 550 ml # Bowel Movements 1 Current Medications Medications (Trade) Dose Ordered Sig/Lopez Route PRN Reason Start Time Stop Time Status Last Admin Dose Admin Acetaminophen (Tylenol) 650 mg Q4H PRN ORAL fever 04/25/20 00:00 05/25/20 00:00 Apixaban (Eliquis) 5 mg BID ORAL 05/06/20 18:00 08/04/20 17:59 Apixaban (Eliquis) 10 mg BID ORAL 04/29/20 18:00 05/06/20 09:01 05/02/20 10:06 Chlorhexidine Gluconate (Arpita-Hex 2%) 1 applic DAILY@1999 TOPIC 04/29/20 20:00 07/28/20 19:59 05/01/20 20:10 Dextrose (Dextrose 50%) 25 ml Q30M PRN IV Hypoglycemia 04/25/20 00:00 07/24/20 00:00 Dextrose (Dextrose 50%) 50 ml Q30M PRN IV Hypoglycemia 04/25/20 00:00 07/24/20 00:00 Folic Acid (Folate) 1 mg DAILY ORAL 04/29/20 09:00 05/29/20 08:59 05/02/20 10:06 Insulin Aspart (NovoLOG) BEFORE MEALS AND HS SUBQ 04/25/20 06:30 07/24/20 06:29 04/28/20 06:22 Lamotrigine (LaMICtal) 25 mg DAILY ORAL 04/25/20 09:00 05/25/20 08:59 05/02/20 10:04 Memantine (Namenda) 5 mg TWICE A DAY ORAL 04/25/20 09:00 05/25/20 08:59 05/02/20 10:11 Metoprolol Tartrate (Lopressor) 50 mg BID GT 05/01/20 20:00 07/30/20 19:59 05/02/20 10:06 Olanzapine (ZyPREXA) 5 mg DAILY ORAL 04/25/20 09:00 06/09/20 08:59 05/02/20 10:05 Ondansetron HCl (Zofran) 4 mg Q6H PRN IVP Nausea & Vomiting 04/25/20 00:00 05/25/20 00:00 Polyethylene Glycol (Miralax) 17 gm DAILYPRN PRN ORAL Constipation 04/25/20 00:00 05/25/20 00:00 Potassium Chloride (K-Dur) 20 meq TWICE A DAY GT 05/01/20 12:15 07/30/20 12:14 05/02/20 10:06 Quetiapine Fumarate (SEROqueL) 50 mg Q12HR ORAL 04/27/20 11:30 06/11/20 11:29 05/02/20 10:04 Laboratory Tests 05/01/20 16:37: POC Whole Blood Glucose 126H 05/01/20 20:15: POC Whole Blood Glucose 100 05/02/20 04:30: White Blood Count 5.5, Red Blood Count 3.08L, Hemoglobin 9.4L, Hematocrit 29.5L, Mean Corpuscular Volume 96, Mean Corpuscular Hemoglobin 30.7, Mean Corpuscular Hemoglobin Concent 32.0, Red Cell Distribution Width 14.1, Platelet Count 176, Mean Platelet Volume 7.3, Neutrophils (%) (Auto) 71.2, Lymphocytes (%) (Auto) 14.6L, Monocytes (%) (Auto) 8.1, Eosinophils (%) (Auto) 5.3H, Basophils (%) (Auto) 0.7, Sodium Level 144, Potassium Level 3.6, Chloride Level 113H, Carbon Dioxide Level 25, Anion Gap 6, Blood Urea Nitrogen 21H, Creatinine 0.8, Estimat Glomerular Filtration Rate > 60, Glucose Level 104#, Calcium Level 7.4L, Phosphorus Level 2.6, Magnesium Level 2.1, Total Bilirubin 0.5, Aspartate Amino Transf (AST/SGOT) 64H, Alanine Aminotransferase (ALT/SGPT) 51, Alkaline Phosphatase 93, Pro-B-Type Natriuretic Peptide 709H, Total Protein 4.5L, Albumin 1.3L, Globulin 3.2, Albumin/Globulin Ratio 0.4L 05/02/20 05:34: POC Whole Blood Glucose 96 05/02/20 12:04: POC Whole Blood Glucose 92 Height (Feet): 6 Height (Inches): 0.00 Weight (Pounds): 148 General Appearance: no apparent distress EENT: other - On BiPAP Cardiovascular: bradycardia Respiratory/Chest: decreased breath sounds Abdomen: distended Maximino Castillo MD May 02, 2020 13:46
[2020-05-02] MEDS ORDERED: NS 275ml ONE ×2 (15:14→15:20)
[2020-05-02] MEDS ORDERED: NS 500ML ONE (15:20)
[2020-05-02] MEDS ORDERED: Tubing IV Secondary IV ONE (15:20)
--- NOTE | 2020-05-02 15:44 | Pulmonolgy Critical Care Note ---
Critical Care - Asmt/Plan Problems: (1) Acute respiratory failure (2) Acute massive pulmonary embolism (3) Acute deep vein thrombosis (DVT) (4) ATN (acute tubular necrosis) (5) Acute encephalopathy (6) UTI (urinary tract infection) (7) Protein-calorie malnutrition, severe (8) Diabetes (9) HTN (hypertension) (10) CVA (cerebral vascular accident) Critical Care - Objective Last 24 Hour Vital Signs Date Time Temp Pulse Resp B/P (MAP) Pulse Ox O2 Delivery O2 Flow Rate FiO2 05/02/20 12:45 64 20 93 60 05/02/20 12:00 65 05/02/20 12:00 Bi-pap 15.0 05/02/20 12:00 60 05/02/20 11:48 97.2 61 20 109/55 (73) 100 05/02/20 10:37 65 20 99 60 05/02/20 10:06 63 109/63 05/02/20 08:56 63 19 99 60 05/02/20 08:00 60 05/02/20 08:00 98.4 68 18 109/63 (78) 100 05/02/20 08:00 Bi-pap 15.0 05/02/20 08:00 73 05/02/20 07:38 93 Bi-Pap 60 05/02/20 06:55 71 21 93 60 05/02/20 05:24 74 20 97 60 05/02/20 04:00 98.1 72 24 125/75 (92) 97 05/02/20 04:00 72 05/02/20 04:00 60 05/02/20 04:00 Bi-pap 05/02/20 03:30 68 20 92 60 05/02/20 01:16 66 23 97 60 05/02/20 00:00 97.7 68 22 105/62 (76) 99 05/02/20 00:00 Bi-pap 05/01/20 23:52 65 05/01/20 23:16 64 25 99 60 05/01/20 20:43 91 24 94 60 05/01/20 20:10 97 122/70 05/01/20 20:00 92 Bi-Pap 60 05/01/20 20:00 60 05/01/20 20:00 Bi-pap 05/01/20 20:00 98.2 97 20 122/70 (87) 98 05/01/20 19:51 84 05/01/20 19:30 90 23 92 60 05/01/20 17:21 92 21 100 60 05/01/20 16:00 60 05/01/20 16:00 Bi-pap 05/01/20 16:00 98.2 80 22 137/62 (87) 98 05/01/20 15:45 78 Accucheck: 92 Critical Care - Subjective FI02: 60 Vent Support Breath Rate: 18 Vent Support Mode: BiLevel Sputum Amount: None Tube Feeding Amount: 20 I&O: Intake and Output 05/01/20 05/02/20 19:00 07:00 Intake Total 920 ml 420 ml Output Total 2100 ml 550 ml Balance -1180 ml -130 ml Free Water 60 ml 180 ml IV Total 430 ml Tube Feeding 180 ml 240 ml Blood Product 250 ml Output Urine Total 2100 ml 550 ml # Bowel Movements 1 Labs: Laboratory Tests Test 05/01/20 16:37 05/01/20 20:15 05/02/20 04:30 05/02/20 05:34 POC Whole Blood Glucose 126 MG/DL (74-106) H 100 MG/DL (74-106) 96 MG/DL (74-106) White Blood Count 5.5 K/UL (4.8-10.8) Red Blood Count 3.08 M/UL (4.70-6.10) L Hemoglobin 9.4 G/DL (14.2-18.0) L Hematocrit 29.5 % (42.0-52.0) L Mean Corpuscular Volume 96 FL (80-99) Mean Corpuscular Hemoglobin 30.7 PG (27.0-31.0) Mean Corpuscular Hemoglobin Concent 32.0 G/DL (32.0-36.0) Red Cell Distribution Width 14.1 % (11.6-14.8) Platelet Count 176 K/UL (150-450) Mean Platelet Volume 7.3 FL (6.5-10.1) Neutrophils (%) (Auto) 71.2 % (45.0-75.0) Lymphocytes (%) (Auto) 14.6 % (20.0-45.0) L Monocytes (%) (Auto) 8.1 % (1.0-10.0) Eosinophils (%) (Auto) 5.3 % (0.0-3.0) H Basophils (%) (Auto) 0.7 % (0.0-2.0) Sodium Level 144 MMOL/L (136-145) Potassium Level 3.6 MMOL/L (3.5-5.1) Chloride Level 113 MMOL/L (98-107) H Carbon Dioxide Level 25 MMOL/L (21-32) Anion Gap 6 mmol/L (5-15) Blood Urea Nitrogen 21 mg/dL (7-18) H Creatinine 0.8 MG/DL (0.55-1.30) Estimat Glomerular Filtration Rate > 60 mL/min (>60) Glucose Level 104 MG/DL (74-106) # Calcium Level 7.4 MG/DL (8.5-10.1) L Phosphorus Level 2.6 MG/DL (2.5-4.9) Magnesium Level 2.1 MG/DL (1.8-2.4) Total Bilirubin 0.5 MG/DL (0.2-1.0) Aspartate Amino Transf (AST/SGOT) 64 U/L (15-37) H Alanine Aminotransferase (ALT/SGPT) 51 U/L (12-78) Alkaline Phosphatase 93 U/L (46-116) Pro-B-Type Natriuretic Peptide 709 pg/mL (0-125) H Total Protein 4.5 G/DL (6.4-8.2) L Albumin 1.3 G/DL (3.4-5.0) L Globulin 3.2 g/dL Albumin/Globulin Ratio 0.4 (1.0-2.7) L Test 05/02/20 12:04 POC Whole Blood Glucose 92 MG/DL (74-106) Luzmaria Downey MD May 02, 2020 15:44
--- NOTE | 2020-05-02 16:00 | NUR ---
NURSE NOTES: bed bath given no BM noted,pt with generalized edema,turned and repositioned.
[2020-05-02 16:04] VITALS: BP 140/87
--- NOTE | 2020-05-02 18:00 | NUR ---
NURSE NOTES: Pt stable,no resp distress presented during the shift ,remains on Bipap at same settings.
--- NOTE | 2020-05-02 19:30 | NUR ---
NURSE HAND-OFF REPORT: Important Events on Shift:N/A Patient Status: stable Diet: Vital AF 1.2 at 20 ml/hr NGT Pending Orders: N/A Pending Results/Labs:N/A Pending MD notification:N/A Latest Vital Signs: Temperature 98.0 , Pulse 90 , B/P 140 /87 , Respiratory Rate 21 , O2 SAT 100 , Bi-pap, O2 Flow Rate 15.0 . Vital Sign Comment: EKG Rhythm: Sinus Rhythm Rhythm change?: N Notified?: N -Dr. Tesfaye SAAVEDRA Response: Latest Andersen Fall Score: 70 Fall Risk: High Risk Safety Measures: Call light Within Reach, Bed Alarm Zone 2, Side Rails Side Rails x3, Bed position Low and Locked. Fall Precautions: Yellow Socks Yellow Gown Door Sign Patient Fall Education Report given to Aidan Davis RN..
--- NOTE | 2020-05-02 19:30 | NUR ---
NURSE NOTES: received report from CRUZ Finley. Pt was asleep in bed, afebrile and has no respiratory distress noted. on bipap 12/5 fi o2 60% pt saturating at 99-100%. On vital af at 20cc/hr via left NGT infusing well, no sediments. With ELI PICC line, Right AC 20g, Left AC 20g intact, patent and asymptomatic. With Fc to urine bag draining well. Needs were attended. HOB elevated. call light within reach and bed rails are up. Continue to monitor the patient.
[2020-05-02 20:00] VITALS: BP 135/80
[2020-05-02] MEDS: Dyna-Hex 2% Top Sol 2oz TOPIC SCH (20:22)
--- NOTE | 2020-05-02 23:02 | Cardiology Progress Note ---
Assessment/Plan Assessment/Plan 1. Wandering pacemaker or multifocal atrial rhythm, continue metoprolol. 2. Dyspnea most likely due to bilateral pulmonary emboli, on Eliquis, 2D echo reveals normal LV function. 3. History of CVA with left hemiparesis. 4. Hypoxic respiratory failure, on bipap mask. 5. Diabetes Mellitus, continue ASA and statins. 6. Dysphagia Subjective Subjective Sinus rhythm at rate of 80. On bipap mask. Objective Last 24 Hour Vital Signs Date Time Temp Pulse Resp B/P (MAP) Pulse Ox O2 Delivery O2 Flow Rate FiO2 05/02/20 21:21 80 20 95 60 05/02/20 20:00 97.5 73 18 135/80 (98) 100 05/02/20 20:00 94 Bi-Pap 60 05/02/20 20:00 Bi-pap 15.0 05/02/20 20:00 60 05/02/20 20:00 74 05/02/20 19:30 82 22 96 60 05/02/20 18:25 90 140/87 05/02/20 16:48 90 21 100 60 05/02/20 16:04 98.0 84 18 140/87 (104) 100 05/02/20 16:00 Bi-pap 15.0 05/02/20 16:00 87 05/02/20 16:00 60 05/02/20 14:45 71 23 100 60 05/02/20 12:45 64 20 93 60 05/02/20 12:00 65 05/02/20 12:00 Bi-pap 15.0 05/02/20 12:00 60 05/02/20 11:48 97.2 61 20 109/55 (73) 100 05/02/20 10:37 65 20 99 60 05/02/20 10:06 63 109/63 05/02/20 08:56 63 19 99 60 05/02/20 08:00 60 05/02/20 08:00 98.4 68 18 109/63 (78) 100 05/02/20 08:00 Bi-pap 15.0 05/02/20 08:00 73 05/02/20 07:38 93 Bi-Pap 60 05/02/20 06:55 71 21 93 60 05/02/20 05:24 74 20 97 60 05/02/20 04:00 98.1 72 24 125/75 (92) 97 05/02/20 04:00 72 05/02/20 04:00 60 05/02/20 04:00 Bi-pap 05/02/20 03:30 68 20 92 60 05/02/20 01:16 66 23 97 60 05/02/20 00:00 97.7 68 22 105/62 (76) 99 05/02/20 00:00 Bi-pap 05/01/20 23:52 65 05/01/20 23:16 64 25 99 60 Intake and Output 05/01/20 05/02/20 19:00 07:00 Intake Total 920 ml 420 ml Output Total 2100 ml 550 ml Balance -1180 ml -130 ml Free Water 60 ml 180 ml IV Total 430 ml Tube Feeding 180 ml 240 ml Blood Product 250 ml Output Urine Total 2100 ml 550 ml # Bowel Movements 1 2D Echo: LVEF 55%, limited views Laboratory Tests Test 05/02/20 04:30 05/02/20 05:34 05/02/20 12:04 05/02/20 16:45 White Blood Count 5.5 K/UL (4.8-10.8) Red Blood Count 3.08 M/UL (4.70-6.10) L Hemoglobin 9.4 G/DL (14.2-18.0) L Hematocrit 29.5 % (42.0-52.0) L Mean Corpuscular Volume 96 FL (80-99) Mean Corpuscular Hemoglobin 30.7 PG (27.0-31.0) Mean Corpuscular Hemoglobin Concent 32.0 G/DL (32.0-36.0) Red Cell Distribution Width 14.1 % (11.6-14.8) Platelet Count 176 K/UL (150-450) Mean Platelet Volume 7.3 FL (6.5-10.1) Neutrophils (%) (Auto) 71.2 % (45.0-75.0) Lymphocytes (%) (Auto) 14.6 % (20.0-45.0) L Monocytes (%) (Auto) 8.1 % (1.0-10.0) Eosinophils (%) (Auto) 5.3 % (0.0-3.0) H Basophils (%) (Auto) 0.7 % (0.0-2.0) Sodium Level 144 MMOL/L (136-145) Potassium Level 3.6 MMOL/L (3.5-5.1) Chloride Level 113 MMOL/L (98-107) H Carbon Dioxide Level 25 MMOL/L (21-32) Anion Gap 6 mmol/L (5-15) Blood Urea Nitrogen 21 mg/dL (7-18) H Creatinine 0.8 MG/DL (0.55-1.30) Estimat Glomerular Filtration Rate > 60 mL/min (>60) Glucose Level 104 MG/DL (74-106) # Calcium Level 7.4 MG/DL (8.5-10.1) L Phosphorus Level 2.6 MG/DL (2.5-4.9) Magnesium Level 2.1 MG/DL (1.8-2.4) Total Bilirubin 0.5 MG/DL (0.2-1.0) Aspartate Amino Transf (AST/SGOT) 64 U/L (15-37) H Alanine Aminotransferase (ALT/SGPT) 51 U/L (12-78) Alkaline Phosphatase 93 U/L (46-116) Pro-B-Type Natriuretic Peptide 709 pg/mL (0-125) H Total Protein 4.5 G/DL (6.4-8.2) L Albumin 1.3 G/DL (3.4-5.0) L Globulin 3.2 g/dL Albumin/Globulin Ratio 0.4 (1.0-2.7) L POC Whole Blood Glucose 96 MG/DL (74-106) 92 MG/DL (74-106) 113 MG/DL (74-106) H Test 05/02/20 20:27 POC Whole Blood Glucose 110 MG/DL (74-106) H Objective HEENT: normocephalic, atraumatic, bilateral eye PERRL, bilateral eye EOMI, on bipap mask. Neck: JVP cannot be assessed, no carotid bruit. Respiratory: Bilateral rhonchi Cardiovascular: normal S1S2, irregularly irregular rhythm, no murmurs, gallops or rubs Gastrointestinal: non tender, soft, non-distended, no guarding Extremities: No edema, clubbing or cyanosis. Neurologic: Left hemiparesis, responds to commands, localizes to pain Gama Whitney MD May 02, 2020 23:02
[2020-05-03] VITALS: BP 124/74
--- NOTE | 2020-05-03 02:30 | NUR ---
NURSE NOTES: Pt was given partial bed bath. gown and linen changed. Pt tolerated well. Continue to monitor
[2020-05-03 04:00] VITALS: BP 138/77
[2020-05-03] MEDS: NovoLOG Insulin Flexpen SUBQ SCH ×4 (06:13→20:20)
--- NOTE | 2020-05-03 06:16 | NUR ---
NURSE NOTES: Pt asleep in bed. No discomforts noted. tolerating feeding formula order. Continue to monitor the patient.
[2020-05-03 06:25] LABS: BASOPHILS % (AUTO) 0.6 % (0.0-2.0); EOSINOPHILS % (AUTO) 3.4 % (0.0-3.0); HEMATOCRIT 31.6 % (42.0-52.0); LYMPHOCYTES % (AUTO) 13.6 % (20.0-45.0); MEAN CORPUSCULAR VOLUME 96 FL (80-99); MONOCYTES % (AUTO) 6.8 % (1.0-10.0); NEUTROPHILS % (AUTO) 75.7 % (45.0-75.0); PLATELET COUNT 211 K/UL (150-450); RED CELL DISTRIBUTION WIDTH 13.8 % (11.6-14.8); WHITE BLOOD COUNT 7.6 K/UL (4.8-10.8)
[2020-05-03 06:49] LABS: ALANINE AMINOTRANSFERASE 44 U/L (12-78); ALBUMIN 1.4 G/DL (3.4-5.0); ALBUMIN/GLOBULIN RATIO 0.4 (1.0-2.7); ALKALINE PHOSPHATASE 97 U/L (46-116); ANION GAP 7 mmol/L (5-15); ASPARTATE AMINO TRANSFERASE 60 U/L (15-37); BILIRUBIN,TOTAL 0.4 MG/DL (0.2-1.0); BLOOD UREA NITROGEN 21 mg/dL (7-18); CALCIUM 7.6 MG/DL (8.5-10.1); CARBON DIOXIDE 27 MMOL/L (21-32); CHLORIDE 111 MMOL/L (98-107); CREATININE 0.8 MG/DL (0.55-1.30); PHOSPHORUS 2.4 MG/DL (2.5-4.9); POTASSIUM 4.1 MMOL/L (3.5-5.1); SODIUM 144 MMOL/L (136-145)
--- NOTE | 2020-05-03 06:49 | Hematology/Onc Progress Note ---
Assessment/Plan Assessment/Plan # Bilateral pulmonary emboli on cta as well as Dvt on duplex --> Equivocal evidence of right heart strain; RV /LV ratio around 0.5 but is somewhat difficult to assess due to ventricular muscle hypertrophy --> duplex Positive for bilateral lower extremity deep venous thrombosis, as described --> continue on heparin gtt until stabilizes, then consider noac --> 04/29 started on eliquis # Anemia of chronic disease, anemia panel is noted --> r.o bleed now that is on hep gtt --> hgb 10-->8.7-->8.5-->9.4 -> no hemolysis is noted # Leukocytosis due to sepsis/uti --> ABX Cefepime/vanc --> smear is reviewed # COPD. --> breathing rx as needed # Diabetes mellitus --> iss, accuchecks qac and qhs # Schizophrenia. --> per psych recs # History of CVA with left hemiparesis. # Dementia. # Dysphagia with ngt # Folate def # Dvt ppx eliquis Appreciate consultation and jorge l Coon Subjective Constitutional: Denies: no symptoms, chills, fever, malaise, weakness, other HEENT: Denies: no symptoms, eye pain, blurred vision, tearing, double vision, ear pain, ear discharge, nose pain, nose congestion, throat pain, throat swelling, mouth pain, mouth swelling, other Cardiovascular: Denies: no symptoms, chest pain, edema, irregular heart rate, lightheadedness, palpitations, syncope, other Respiratory: Denies: no symptoms, cough, shortness of breath, SOB with excertion, SOB at rest, sputum, wheezing, other Gastrointestinal/Abdominal: Denies: no symptoms, abdomen distended, abdominal pain, black stools, tarry stools, blood in stool, constipated, diarrhea, difficulty swallowing, nausea, poor appetite, poor fluid intake, rectal bleeding, vomiting, other Neurologic/Psychiatric: Denies: no symptoms, anxiety, depressed, emotional problems, headache, numbness, paresthesia, pre-existing deficit, seizure, tingling, tremors, weakness, other Endocrine: Denies: no symptoms, excessive sweating, flushing, intolerance to cold, intolerance to heat, increased hunger, increased thirst, increased urine, unexplained weight gain, unexplained weight loss, other Allergies: Coded Allergies: No Known Allergies (Unverified , 06/11/17) Subjective 04/29 remains on heparin gtt, labs noted, no bleeding, h/h stable, on folate 04/30 meds noted, changed to apixaban, labs noted 05/02 asleep, no bleeding, meds noted, labs reviewed, on noac 05/03 is asleep, no bleeding, no night sweats reported, cbc noted Objective Objective Current Medications Medications (Trade) Dose Ordered Sig/Lopez Route PRN Reason Start Time Stop Time Status Last Admin Dose Admin Acetaminophen (Tylenol) 650 mg Q4H PRN ORAL fever 04/25/20 00:00 05/25/20 00:00 Apixaban (Eliquis) 5 mg BID ORAL 05/06/20 18:00 08/04/20 17:59 Apixaban (Eliquis) 10 mg BID ORAL 04/29/20 18:00 05/06/20 09:01 05/02/20 18:24 Chlorhexidine Gluconate (Arpita-Hex 2%) 1 applic DAILY@2000 TOPIC 04/29/20 20:00 07/28/20 19:59 05/02/20 20:22 Dextrose (Dextrose 50%) 25 ml Q30M PRN IV Hypoglycemia 04/25/20 00:00 07/24/20 00:00 Dextrose (Dextrose 50%) 50 ml Q30M PRN IV Hypoglycemia 04/25/20 00:00 07/24/20 00:00 Folic Acid (Folate) 1 mg DAILY ORAL 04/29/20 09:00 05/29/20 08:59 05/02/20 10:06 Insulin Aspart (NovoLOG) BEFORE MEALS AND HS SUBQ 04/25/20 06:30 07/24/20 06:29 04/28/20 06:22 Lamotrigine (LaMICtal) 25 mg DAILY ORAL 04/25/20 09:00 05/25/20 08:59 05/02/20 10:04 Memantine (Namenda) 5 mg TWICE A DAY ORAL 04/25/20 09:00 05/25/20 08:59 05/02/20 18:23 Metoprolol Tartrate (Lopressor) 50 mg BID GT 05/01/20 20:00 07/30/20 19:59 05/02/20 18:25 Olanzapine (ZyPREXA) 5 mg DAILY ORAL 04/25/20 09:00 06/09/20 08:59 05/02/20 10:05 Ondansetron HCl (Zofran) 4 mg Q6H PRN IVP Nausea & Vomiting 04/25/20 00:00 05/25/20 00:00 Polyethylene Glycol (Miralax) 17 gm DAILYPRN PRN ORAL Constipation 04/25/20 00:00 05/25/20 00:00 Potassium Chloride (K-Dur) 20 meq TWICE A DAY GT 05/01/20 12:15 07/30/20 12:14 05/02/20 18:23 Quetiapine Fumarate (SEROqueL) 50 mg Q12HR ORAL 04/27/20 11:30 06/11/20 11:29 05/02/20 20:23 Last 24 Hour Vital Signs Date Time Temp Pulse Resp B/P (MAP) Pulse Ox O2 Delivery O2 Flow Rate FiO2 05/03/20 05:26 84 22 100 60 05/03/20 04:00 60 05/03/20 04:00 Bi-pap 15.0 05/03/20 04:00 98.4 89 18 138/77 (97) 100 05/03/20 03:30 85 23 100 60 05/03/20 03:28 86 05/03/20 01:30 83 20 100 60 05/03/20 00:04 87 05/03/20 00:00 Bi-pap 15.0 05/03/20 00:00 97.5 85 18 124/74 (91) 100 05/02/20 23:12 87 28 97 60 05/02/20 21:21 80 20 95 60 05/02/20 20:00 97.5 73 18 135/80 (98) 100 05/02/20 20:00 94 Bi-Pap 60 05/02/20 20:00 Bi-pap 15.0 05/02/20 20:00 60 05/02/20 20:00 74 05/02/20 19:30 82 22 96 60 05/02/20 18:25 90 140/87 05/02/20 16:48 90 21 100 60 05/02/20 16:04 98.0 84 18 140/87 (104) 100 05/02/20 16:00 Bi-pap 15.0 05/02/20 16:00 87 05/02/20 16:00 60 05/02/20 14:45 71 23 100 60 05/02/20 12:45 64 20 93 60 05/02/20 12:00 65 05/02/20 12:00 Bi-pap 15.0 05/02/20 12:00 60 05/02/20 11:48 97.2 61 20 109/55 (73) 100 05/02/20 10:37 65 20 99 60 05/02/20 10:06 63 109/63 05/02/20 08:56 63 19 99 60 05/02/20 08:00 60 05/02/20 08:00 98.4 68 18 109/63 (78) 100 05/02/20 08:00 Bi-pap 15.0 05/02/20 08:00 73 05/02/20 07:38 93 Bi-Pap 60 05/02/20 06:55 71 21 93 60 05/02/20 05:24 74 20 97 60 05/02/20 04:00 98.1 72 24 125/75 (92) 97 05/02/20 04:00 72 05/02/20 04:00 60 05/02/20 04:00 Bi-pap 05/02/20 03:30 68 20 92 60 05/02/20 01:16 66 23 97 60 05/02/20 00:00 97.7 68 22 105/62 (76) 99 05/02/20 00:00 Bi-pap 05/01/20 23:52 65 05/01/20 23:16 64 25 99 60 05/01/20 20:43 91 24 94 60 05/01/20 20:10 97 122/70 05/01/20 20:00 92 Bi-Pap 60 05/01/20 20:00 60 05/01/20 20:00 Bi-pap 05/01/20 20:00 98.2 97 20 122/70 (87) 98 05/01/20 19:51 84 05/01/20 19:30 90 23 92 60 05/01/20 17:21 92 21 100 60 05/01/20 16:00 60 05/01/20 16:00 Bi-pap 05/01/20 16:00 98.2 80 22 137/62 (87) 98 05/01/20 15:45 78 05/01/20 15:31 93 05/01/20 15:10 84 21 100 60 05/01/20 13:20 78 20 100 60 05/01/20 12:00 Bi-pap 05/01/20 12:00 81 05/01/20 12:00 60 05/01/20 12:00 96.8 78 20 131/77 (95) 96 05/01/20 11:07 74 19 100 60 05/01/20 09:18 75 19 99 60 05/01/20 08:00 60 05/01/20 08:00 Bi-pap 05/01/20 08:00 76 05/01/20 08:00 98.1 61 21 130/81 (97) 98 05/01/20 06:50 69 19 99 60 05/01/20 06:50 99 Bi-Pap 60 Intake and Output 05/02/20 05/03/20 19:00 07:00 Intake Total 380 ml 520 ml Output Total 550 ml Balance -170 ml 520 ml Free Water 100 ml 300 ml Tube Feeding 160 ml 220 ml Other 120 ml Output Urine Total 550 ml Labs Test 04/30/20 11:10 04/30/20 13:12 04/30/20 17:04 04/30/20 20:05 POC Whole Blood Glucose 117 MG/DL (74-106) 88 MG/DL (74-106) Erythrocyte Sedimentation Rate 115 MM/HR (0-20) Test 05/01/20 04:00 05/01/20 04:55 05/01/20 11:46 05/01/20 16:37 White Blood Count 4.9 K/UL (4.8-10.8) Red Blood Count 2.56 M/UL (4.70-6.10) Hemoglobin 7.8 G/DL (14.2-18.0) Hematocrit 25.1 % (42.0-52.0) Mean Corpuscular Volume 98 FL (80-99) Mean Corpuscular Hemoglobin 30.3 PG (27.0-31.0) Mean Corpuscular Hemoglobin Concent 30.9 G/DL (32.0-36.0) Red Cell Distribution Width 13.8 % (11.6-14.8) Platelet Count 141 K/UL (150-450) Mean Platelet Volume 7.1 FL (6.5-10.1) Neutrophils (%) (Auto) % (45.0-75.0) Lymphocytes (%) (Auto) % (20.0-45.0) Monocytes (%) (Auto) % (1.0-10.0) Eosinophils (%) (Auto) % (0.0-3.0) Basophils (%) (Auto) % (0.0-2.0) Differential Total Cells Counted 100 Neutrophils % (Manual) 79 % (45-75) Lymphocytes % (Manual) 9 % (20-45) Monocytes % (Manual) 5 % (1-10) Eosinophils % (Manual) 6 % (0-3) Basophils % (Manual) 0 % (0-2) Myelocytes % 1 % (0-0) Band Neutrophils 0 % (0-8) Platelet Estimate Decreased Platelet Morphology Normal Hypochromasia 1+ Erythrocyte Sedimentation Rate 101 MM/HR (0-20) Sodium Level 136 MMOL/L (136-145) Potassium Level 3.5 MMOL/L (3.5-5.1) Chloride Level 107 MMOL/L (98-107) Carbon Dioxide Level 22 MMOL/L (21-32) Anion Gap 7 mmol/L (5-15) Blood Urea Nitrogen 21 mg/dL (7-18) Creatinine 0.8 MG/DL (0.55-1.30) Estimat Glomerular Filtration Rate > 60 mL/min (>60) Glucose Level 388 MG/DL (74-106) Calcium Level 6.7 MG/DL (8.5-10.1) Phosphorus Level 2.7 MG/DL (2.5-4.9) Magnesium Level 1.9 MG/DL (1.8-2.4) C-Reactive Protein, Quantitative 16.2 mg/dL (0.00-0.90) Pro-B-Type Natriuretic Peptide 589 pg/mL (0-125) POC Whole Blood Glucose 125 MG/DL (74-106) 126 MG/DL (74-106) Test 05/01/20 20:15 05/02/20 04:30 05/02/20 05:34 05/02/20 12:04 POC Whole Blood Glucose 100 MG/DL (74-106) 96 MG/DL (74-106) 92 MG/DL (74-106) White Blood Count 5.5 K/UL (4.8-10.8) Red Blood Count 3.08 M/UL (4.70-6.10) Hemoglobin 9.4 G/DL (14.2-18.0) Hematocrit 29.5 % (42.0-52.0) Mean Corpuscular Volume 96 FL (80-99) Mean Corpuscular Hemoglobin 30.7 PG (27.0-31.0) Mean Corpuscular Hemoglobin Concent 32.0 G/DL (32.0-36.0) Red Cell Distribution Width 14.1 % (11.6-14.8) Platelet Count 176 K/UL (150-450) Mean Platelet Volume 7.3 FL (6.5-10.1) Neutrophils (%) (Auto) 71.2 % (45.0-75.0) Lymphocytes (%) (Auto) 14.6 % (20.0-45.0) Monocytes (%) (Auto) 8.1 % (1.0-10.0) Eosinophils (%) (Auto) 5.3 % (0.0-3.0) Basophils (%) (Auto) 0.7 % (0.0-2.0) Sodium Level 144 MMOL/L (136-145) Potassium Level 3.6 MMOL/L (3.5-5.1) Chloride Level 113 MMOL/L (98-107) Carbon Dioxide Level 25 MMOL/L (21-32) Anion Gap 6 mmol/L (5-15) Blood Urea Nitrogen 21 mg/dL (7-18) Creatinine 0.8 MG/DL (0.55-1.30) Estimat Glomerular Filtration Rate > 60 mL/min (>60) Glucose Level 104 MG/DL (74-106) Calcium Level 7.4 MG/DL (8.5-10.1) Phosphorus Level 2.6 MG/DL (2.5-4.9) Magnesium Level 2.1 MG/DL (1.8-2.4) Total Bilirubin 0.5 MG/DL (0.2-1.0) Aspartate Amino Transf (AST/SGOT) 64 U/L (15-37) Alanine Aminotransferase (ALT/SGPT) 51 U/L (12-78) Alkaline Phosphatase 93 U/L (46-116) Pro-B-Type Natriuretic Peptide 709 pg/mL (0-125) Total Protein 4.5 G/DL (6.4-8.2) Albumin 1.3 G/DL (3.4-5.0) Globulin 3.2 g/dL Albumin/Globulin Ratio 0.4 (1.0-2.7) Test 05/02/20 16:45 05/02/20 20:27 05/03/20 03:30 05/03/20 05:10 POC Whole Blood Glucose 113 MG/DL (74-106) 110 MG/DL (74-106) 124 MG/DL (74-106) White Blood Count 7.6 K/UL (4.8-10.8) Red Blood Count 3.30 M/UL (4.70-6.10) Hemoglobin 10.0 G/DL (14.2-18.0) Hematocrit 31.6 % (42.0-52.0) Mean Corpuscular Volume 96 FL (80-99) Mean Corpuscular Hemoglobin 30.3 PG (27.0-31.0) Mean Corpuscular Hemoglobin Concent 31.7 G/DL (32.0-36.0) Red Cell Distribution Width 13.8 % (11.6-14.8) Platelet Count 211 K/UL (150-450) Mean Platelet Volume 6.5 FL (6.5-10.1) Neutrophils (%) (Auto) 75.7 % (45.0-75.0) Lymphocytes (%) (Auto) 13.6 % (20.0-45.0) Monocytes (%) (Auto) 6.8 % (1.0-10.0) Eosinophils (%) (Auto) 3.4 % (0.0-3.0) Basophils (%) (Auto) 0.6 % (0.0-2.0) Height (Feet): 6 Height (Inches): 0.00 Weight (Pounds): 148 Sree Dubon MD May 03, 2020 06:49
--- NOTE | 2020-05-03 07:10 | NUR ---
NURSE HAND-OFF REPORT: Important Events on Shift: none Patient Status: stable Diet: vital af at 20cc/hr Pending Orders:n Pending Results/Labs:cmp Pending MD notification:n Latest Vital Signs: Temperature 98.4 , Pulse 84 , B/P 138 /77 , Respiratory Rate 22 , O2 SAT 100 , Bi-pap, O2 Flow Rate 15.0 . Vital Sign Comment: n EKG Rhythm: Sinus Rhythm Rhythm change?: N MD Notified?: N -Dr. Tesfaye SAAVEDRA Response: Latest Andersen Fall Score: 70 Fall Risk: High Risk Safety Measures: Call light Within Reach, Bed Alarm Zone 2, Side Rails Side Rails x3, Bed position Low and Locked. Fall Precautions: Yellow Socks Yellow Gown Door Sign Patient Fall Education Report given to CRUZ Lassiter.
--- NOTE | 2020-05-03 07:44 | NUR ---
NURSE NOTES: Received report from CRUZ PACE. Patient in bed resting, no active s/s cardiac, respiratory distress noticed at this time. Patient AOx0-1, open eyes spontaneously. SR with HR 84. Patient on BIPAP 12/5 Fio2 60%, O2 sat 100%. Endorsed ABG @ 0800. Patient on NGT on left nares, Vital AF @ 20ml/h. Patient on Contreras Catheter draining well to gravity at this time. IV on right Ac 20G, left AC 20G, Right upper arm PICC in place, patent, intact. Bed in lowest position, side rails upx3, call light within reach, bed alarm on, Will continue to monitor.
[2020-05-03 08:00] VITALS: BP 128/71
--- NOTE | 2020-05-03 08:04 | Infectious Diseases Prog Note ---
Assessment/Plan 80yo M with: Sepsis UTI -u/a wbc 50-60, nit neg, leuk +1; ucx Neg Gram positive bacteremia- m/l contaminant -04/24 sp cx 1/2 S. epi; 04/26 Bcx NTD Fever; SP No leukocytosis -04/26 influenza screen neg CXR: Borderline cardiomegaly. No acute process -04/24 CXR: No acute cardiopulmonary disease. covid rapid PCR neg Acute hypoxic resp failure- SP NRB>Bipap> VM . BiPAP B/l DVT and PE -CTA chest: Positive for bilateral pulmonary emboli Equivocal evidence of right heart strain; RV /LV ratio around 0.5 but is somewhat difficult to assess due to ventricular muscle hypertrophy. Left basilar compressive atelectasis, pleural fluid, and possibly some consolidation. Trace right pleural fluid. Subtle mosaic perfusion pattern, nonspecific but probably represents very mild pulmonary edema. Cardiomegaly. Nasogastric tube -V. duplex: : On the right, occlusive thrombus is seen within the downstream common femoral vein, the femoral vein, popliteal vein as well as within multiple calf veins. On the left, occlusive thrombus is seen within the femoral vein and popliteal vein the common femoral vein and calf veins are patent. COPD DM2 HTN schizophrenia malnutrition CVA w/ left spastic hemiparesis vascular dementia schizoaffective-bipolar type SNF resident (Everette peterson) Plan: Cont to monitor off abx 05/01 SP cefepime #8 04/30 SP vanco IV #6 -f/u cx -Monitor CBC/CMP, temperatures -aspiration precautions D/w RN Thank you for consulting [facility]. Will continue to follow along with you. Subjective Allergies: Coded Allergies: No Known Allergies (Unverified , 06/11/17) AF Off abx No leukocytosis NAD in bed on BiPAP, doing overall better than prior per RN Objective Last 24 Hour Vital Signs Date Time Temp Pulse Resp B/P (MAP) Pulse Ox O2 Delivery O2 Flow Rate FiO2 05/03/20 05:26 84 22 100 60 05/03/20 04:00 60 05/03/20 04:00 Bi-pap 15.0 05/03/20 04:00 98.4 89 18 138/77 (97) 100 05/03/20 03:30 85 23 100 60 05/03/20 03:28 86 05/03/20 01:30 83 20 100 60 05/03/20 00:04 87 05/03/20 00:00 Bi-pap 15.0 05/03/20 00:00 97.5 85 18 124/74 (91) 100 05/02/20 23:12 87 28 97 60 05/02/20 21:21 80 20 95 60 05/02/20 20:00 97.5 73 18 135/80 (98) 100 05/02/20 20:00 94 Bi-Pap 60 05/02/20 20:00 Bi-pap 15.0 05/02/20 20:00 60 05/02/20 20:00 74 05/02/20 19:30 82 22 96 60 05/02/20 18:25 90 140/87 05/02/20 16:48 90 21 100 60 05/02/20 16:04 98.0 84 18 140/87 (104) 100 05/02/20 16:00 Bi-pap 15.0 05/02/20 16:00 87 05/02/20 16:00 60 05/02/20 14:45 71 23 100 60 05/02/20 12:45 64 20 93 60 05/02/20 12:00 65 05/02/20 12:00 Bi-pap 15.0 05/02/20 12:00 60 05/02/20 11:48 97.2 61 20 109/55 (73) 100 05/02/20 10:37 65 20 99 60 05/02/20 10:06 63 109/63 05/02/20 08:56 63 19 99 60 Height (Feet): 6 Height (Inches): 0.00 Weight (Pounds): 148 Gen: NAD in bed HEENT: NCAT on BiPAP mask CV: RRR Pulm: CTAB Abd: Soft, NTND Ext: No c/c/e Neuro: Sleeping Laboratory Tests Test 05/02/20 12:04 05/02/20 16:45 05/02/20 20:27 05/03/20 03:30 POC Whole Blood Glucose 92 MG/DL (74-106) 113 MG/DL (74-106) H 110 MG/DL (74-106) H White Blood Count 7.6 K/UL (4.8-10.8) Red Blood Count 3.30 M/UL (4.70-6.10) L Hemoglobin 10.0 G/DL (14.2-18.0) L Hematocrit 31.6 % (42.0-52.0) L Mean Corpuscular Volume 96 FL (80-99) Mean Corpuscular Hemoglobin 30.3 PG (27.0-31.0) Mean Corpuscular Hemoglobin Concent 31.7 G/DL (32.0-36.0) L Red Cell Distribution Width 13.8 % (11.6-14.8) Platelet Count 211 K/UL (150-450) Mean Platelet Volume 6.5 FL (6.5-10.1) Neutrophils (%) (Auto) 75.7 % (45.0-75.0) H Lymphocytes (%) (Auto) 13.6 % (20.0-45.0) L Monocytes (%) (Auto) 6.8 % (1.0-10.0) Eosinophils (%) (Auto) 3.4 % (0.0-3.0) H Basophils (%) (Auto) 0.6 % (0.0-2.0) Sodium Level 144 MMOL/L (136-145) Potassium Level 4.1 MMOL/L (3.5-5.1) Chloride Level 111 MMOL/L (98-107) H Carbon Dioxide Level 27 MMOL/L (21-32) Anion Gap 7 mmol/L (5-15) Blood Urea Nitrogen 21 mg/dL (7-18) H Creatinine 0.8 MG/DL (0.55-1.30) Estimat Glomerular Filtration Rate > 60 mL/min (>60) Glucose Level 101 MG/DL (74-106) Calcium Level 7.6 MG/DL (8.5-10.1) L Phosphorus Level 2.4 MG/DL (2.5-4.9) L Magnesium Level 1.9 MG/DL (1.8-2.4) Total Bilirubin 0.4 MG/DL (0.2-1.0) Aspartate Amino Transf (AST/SGOT) 60 U/L (15-37) H Alanine Aminotransferase (ALT/SGPT) 44 U/L (12-78) Alkaline Phosphatase 97 U/L (46-116) Total Protein 4.7 G/DL (6.4-8.2) L Albumin 1.4 G/DL (3.4-5.0) L Globulin 3.3 g/dL Albumin/Globulin Ratio 0.4 (1.0-2.7) L Test 05/03/20 05:10 POC Whole Blood Glucose 124 MG/DL (74-106) H Current Medications Medications (Trade) Dose Ordered Sig/Lopez Route PRN Reason Start Time Stop Time Status Last Admin Dose Admin Acetaminophen (Tylenol) 650 mg Q4H PRN ORAL fever 04/25/20 00:00 05/25/20 00:00 Apixaban (Eliquis) 5 mg BID ORAL 05/06/20 18:00 08/04/20 17:59 Apixaban (Eliquis) 10 mg BID ORAL 04/29/20 18:00 05/06/20 09:01 05/02/20 18:24 Chlorhexidine Gluconate (Arpita-Hex 2%) 1 applic DAILY@1999 TOPIC 04/29/20 20:00 07/28/20 19:59 05/02/20 20:22 Dextrose (Dextrose 50%) 25 ml Q30M PRN IV Hypoglycemia 04/25/20 00:00 07/24/20 00:00 Dextrose (Dextrose 50%) 50 ml Q30M PRN IV Hypoglycemia 04/25/20 00:00 07/24/20 00:00 Folic Acid (Folate) 1 mg DAILY ORAL 04/29/20 09:00 05/29/20 08:59 05/02/20 10:06 Insulin Aspart (NovoLOG) BEFORE MEALS AND HS SUBQ 04/25/20 06:30 07/24/20 06:29 04/28/20 06:22 Lamotrigine (LaMICtal) 25 mg DAILY ORAL 04/25/20 09:00 05/25/20 08:59 05/02/20 10:04 Memantine (Namenda) 5 mg TWICE A DAY ORAL 04/25/20 09:00 05/25/20 08:59 05/02/20 18:23 Metoprolol Tartrate (Lopressor) 50 mg BID GT 05/01/20 20:00 07/30/20 19:59 05/02/20 18:25 Olanzapine (ZyPREXA) 5 mg DAILY ORAL 04/25/20 09:00 06/09/20 08:59 05/02/20 10:05 Ondansetron HCl (Zofran) 4 mg Q6H PRN IVP Nausea & Vomiting 04/25/20 00:00 05/25/20 00:00 Polyethylene Glycol (Miralax) 17 gm DAILYPRN PRN ORAL Constipation 04/25/20 00:00 05/25/20 00:00 Potassium Chloride (K-Dur) 20 meq TWICE A DAY GT 05/01/20 12:15 07/30/20 12:14 05/02/20 18:23 Quetiapine Fumarate (SEROqueL) 50 mg Q12HR ORAL 04/27/20 11:30 06/11/20 11:29 05/02/20 20:23 Raina Loving M.D. May 03, 2020 08:04
[2020-05-03] MEDS: Memantine 10mg tab ORAL SCH ×2 (09:13→17:11)
[2020-05-03] MEDS: Metoprolol Tartrate 50mg tab GT SCH ×2 (09:14→17:12)
[2020-05-03] MEDS: Eliquis 5mg tablet ORAL SCH ×2 (09:14→17:11)
--- NOTE | 2020-05-03 10:09 | General Progress Note ---
Subjective ROS Limited/Unobtainable: No Allergies: Coded Allergies: No Known Allergies (Unverified , 06/11/17) Objective Last 24 Hour Vital Signs Date Time Temp Pulse Resp B/P (MAP) Pulse Ox O2 Delivery O2 Flow Rate FiO2 05/03/20 09:14 82 128/71 05/03/20 08:01 67 21 99 60 05/03/20 08:01 99 Bi-Pap 60 05/03/20 08:00 78 05/03/20 08:00 98.2 82 18 128/71 (90) 99 05/03/20 05:26 84 22 100 60 05/03/20 04:00 60 05/03/20 04:00 Bi-pap 15.0 05/03/20 04:00 98.4 89 18 138/77 (97) 100 05/03/20 03:30 85 23 100 60 05/03/20 03:28 86 05/03/20 01:30 83 20 100 60 05/03/20 00:04 87 05/03/20 00:00 Bi-pap 15.0 05/03/20 00:00 97.5 85 18 124/74 (91) 100 05/02/20 23:12 87 28 97 60 05/02/20 21:21 80 20 95 60 05/02/20 20:00 97.5 73 18 135/80 (98) 100 05/02/20 20:00 94 Bi-Pap 60 05/02/20 20:00 Bi-pap 15.0 05/02/20 20:00 60 05/02/20 20:00 74 05/02/20 19:30 82 22 96 60 05/02/20 18:25 90 140/87 05/02/20 16:48 90 21 100 60 05/02/20 16:04 98.0 84 18 140/87 (104) 100 05/02/20 16:00 Bi-pap 15.0 05/02/20 16:00 87 05/02/20 16:00 60 05/02/20 14:45 71 23 100 60 05/02/20 12:45 64 20 93 60 05/02/20 12:00 65 05/02/20 12:00 Bi-pap 15.0 05/02/20 12:00 60 05/02/20 11:48 97.2 61 20 109/55 (73) 100 05/02/20 10:37 65 20 99 60 Intake and Output 05/02/20 05/03/20 19:00 07:00 Intake Total 380 ml 540 ml Output Total 550 ml 500 ml Balance -170 ml 40 ml Free Water 100 ml 300 ml Tube Feeding 160 ml 240 ml Other 120 ml Output Urine Total 550 ml 500 ml Laboratory Tests 05/02/20 12:04: POC Whole Blood Glucose 92 05/02/20 16:45: POC Whole Blood Glucose 113H 05/02/20 20:27: POC Whole Blood Glucose 110H 05/03/20 03:30: White Blood Count 7.6, Red Blood Count 3.30L, Hemoglobin 10.0L, Hematocrit 31.6L , Mean Corpuscular Volume 96, Mean Corpuscular Hemoglobin 30.3, Mean Corpuscular Hemoglobin Concent 31.7L, Red Cell Distribution Width 13.8, Platelet Count 211, Mean Platelet Volume 6.5, Neutrophils (%) (Auto) 75.7H, Lymphocytes (%) (Auto) 13.6L, Monocytes (%) (Auto) 6.8, Eosinophils (%) (Auto) 3.4H, Basophils (%) (Auto) 0.6, Sodium Level 144, Potassium Level 4.1, Chloride Level 111H, Carbon Dioxide Level 27, Anion Gap 7, Blood Urea Nitrogen 21H, Creatinine 0.8, Estimat Glomerular Filtration Rate > 60, Glucose Level 101, Calcium Level 7.6L, Phosphorus Level 2.4L, Magnesium Level 1.9, Total Bilirubin 0.4, Aspartate Amino Transf (AST/SGOT) 60H, Alanine Aminotransferase (ALT/SGPT) 44, Alkaline Phosphatase 97, Total Protein 4.7L, Albumin 1.4L, Globulin 3.3, Albumin/Globulin Ratio 0.4L 05/03/20 05:10: POC Whole Blood Glucose 124H Height (Feet): 6 Height (Inches): 0.00 Weight (Pounds): 148 General Appearance: no apparent distress EENT: normal ENT inspection Neck: supple Cardiovascular: normal rate Respiratory/Chest: decreased breath sounds Abdomen: normal bowel sounds, non tender, soft Extremities: non-tender Assessment/Plan Status: progressing, unchanged Assessment/Plan: 1. COPD. 2. Diabetes. 3. Schizophrenia. 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 5. Dementia. 6. Anemia 7. Dysphagia 8. Folate def NGTF on low dose given patient on BIPAP folate not stable for PEG on BIPAP neg stool ob>>> neg will fu Nathan Short MD May 03, 2020 10:09
[2020-05-03] MEDS ORDERED: Potassium Phosphate 20 MM in NS 275 ML IV ONE (10:30)
--- NOTE | 2020-05-03 10:30 | General Progress Note ---
Subjective Constitutional: Reports: weakness Allergies: Coded Allergies: No Known Allergies (Unverified , 06/11/17) All Systems: reviewed and negative except above Subjective bipap sleepy in bed Objective Last 24 Hour Vital Signs Date Time Temp Pulse Resp B/P (MAP) Pulse Ox O2 Delivery O2 Flow Rate FiO2 05/03/20 09:14 82 128/71 05/03/20 08:01 67 21 99 60 05/03/20 08:01 99 Bi-Pap 60 05/03/20 08:00 Bi-pap 05/03/20 08:00 78 05/03/20 08:00 60 05/03/20 08:00 98.2 82 18 128/71 (90) 99 05/03/20 05:26 84 22 100 60 05/03/20 04:00 60 05/03/20 04:00 Bi-pap 15.0 05/03/20 04:00 98.4 89 18 138/77 (97) 100 05/03/20 03:30 85 23 100 60 05/03/20 03:28 86 05/03/20 01:30 83 20 100 60 05/03/20 00:04 87 05/03/20 00:00 Bi-pap 15.0 05/03/20 00:00 97.5 85 18 124/74 (91) 100 05/02/20 23:12 87 28 97 60 05/02/20 21:21 80 20 95 60 05/02/20 20:00 97.5 73 18 135/80 (98) 100 05/02/20 20:00 94 Bi-Pap 60 05/02/20 20:00 Bi-pap 15.0 05/02/20 20:00 60 05/02/20 20:00 74 05/02/20 19:30 82 22 96 60 05/02/20 18:25 90 140/87 05/02/20 16:48 90 21 100 60 05/02/20 16:04 98.0 84 18 140/87 (104) 100 05/02/20 16:00 Bi-pap 15.0 05/02/20 16:00 87 05/02/20 16:00 60 05/02/20 14:45 71 23 100 60 05/02/20 12:45 64 20 93 60 05/02/20 12:00 65 05/02/20 12:00 Bi-pap 15.0 05/02/20 12:00 60 05/02/20 11:48 97.2 61 20 109/55 (73) 100 05/02/20 10:37 65 20 99 60 Intake and Output 05/02/20 05/03/20 19:00 07:00 Intake Total 380 ml 540 ml Output Total 550 ml 500 ml Balance -170 ml 40 ml Free Water 100 ml 300 ml Tube Feeding 160 ml 240 ml Other 120 ml Output Urine Total 550 ml 500 ml Laboratory Tests 05/02/20 12:04: POC Whole Blood Glucose 92 05/02/20 16:45: POC Whole Blood Glucose 113H 05/02/20 20:27: POC Whole Blood Glucose 110H 05/03/20 03:30: White Blood Count 7.6, Red Blood Count 3.30L, Hemoglobin 10.0L, Hematocrit 31.6L , Mean Corpuscular Volume 96, Mean Corpuscular Hemoglobin 30.3, Mean Corpuscular Hemoglobin Concent 31.7L, Red Cell Distribution Width 13.8, Platelet Count 211, Mean Platelet Volume 6.5, Neutrophils (%) (Auto) 75.7H, Lymphocytes (%) (Auto) 13.6L, Monocytes (%) (Auto) 6.8, Eosinophils (%) (Auto) 3.4H, Basophils (%) (Auto) 0.6, Sodium Level 144, Potassium Level 4.1, Chloride Level 111H, Carbon Dioxide Level 27, Anion Gap 7, Blood Urea Nitrogen 21H, Creatinine 0.8, Estimat Glomerular Filtration Rate > 60, Glucose Level 101, Calcium Level 7.6L, Phosphorus Level 2.4L, Magnesium Level 1.9, Total Bilirubin 0.4, Aspartate Amino Transf (AST/SGOT) 60H, Alanine Aminotransferase (ALT/SGPT) 44, Alkaline Phosphatase 97, Total Protein 4.7L, Albumin 1.4L, Globulin 3.3, Albumin/Globulin Ratio 0.4L 05/03/20 05:10: POC Whole Blood Glucose 124H Height (Feet): 6 Height (Inches): 0.00 Weight (Pounds): 148 General Appearance: lethargic EENT: normal ENT inspection Neck: normal alignment Cardiovascular: normal peripheral pulses, normal rate, regular rhythm Respiratory/Chest: chest wall non-tender, lungs clear, normal breath sounds Abdomen: normal bowel sounds, non tender, soft Extremities: normal inspection Edema: no edema noted Arm (L), no edema noted Arm (R), no edema noted Leg (L), no edema noted Leg (R), no edema noted Pedal (L), no edema noted Pedal (R), no edema noted Generalized Neurologic: motor weakness Skin: normal pigmentation, warm/dry Assessment/Plan Problem List: (1) UTI (urinary tract infection) ICD Codes: N39.0 - Urinary tract infection, site not specified SNOMED: 52482933 (2) CVA (cerebral vascular accident) ICD Codes: I63.9 - Cerebral infarction, unspecified SNOMED: 340274771 (3) KORY (acute kidney injury) ICD Codes: N17.9 - Acute kidney failure, unspecified SNOMED: 8570776, 17905269 (4) HTN (hypertension) ICD Codes: I10 - Essential (primary) hypertension SNOMED: 74774861 (5) Diabetes ICD Codes: E11.9 - Type 2 diabetes mellitus without complications SNOMED: 14641999 (6) Dehydration ICD Codes: E86.0 - Dehydration SNOMED: 83692770 (7) Hypernatremia ICD Codes: E87.0 - Hyperosmolality and hypernatremia SNOMED: 33923673 (8) Acute respiratory failure ICD Codes: J96.00 - Acute respiratory failure, unspecified whether with hypoxia or hypercapnia SNOMED: 83579491 Status: unchanged Assessment/Plan: o2 pulm tx abx pt diet cbc bmp am aru and ltach German Villanueva DO May 03, 2020 10:30
--- NOTE | 2020-05-03 11:31 | Diagnostic Imaging Report ---
Indication: Reason For Exam: DYSPNEA Technique: Single AP view of the chest. Comparison: Chest radiograph dated 04/29/2020 Findings: Evaluation of the cardiomediastinal silhouette is limited due to overlapping shadows. Interval opacification of left hemithorax. There is a new abrupt termination of the left mainstem bronchus. There is a small amount of left perihilar aerated lung. Interval development of right midlung airspace opacity. Unchanged enteric tube and right PICC. IMPRESSION: 1. Interval opacification of left hemithorax, likely representing combination of large pleural effusion and left lung collapse. Given abrupt termination of left mainstem bronchus lucency, obstructive process such as aspiration or mucous plugging should be considered. 2. New patchy right midlung airspace opacity which could represent atelectasis or developing airspace consolidation.
--- NOTE | 2020-05-03 11:39 | NUR ---
NURSE NOTES: Dr. Downey made aware of ABG result, no new order received at this time, Will continue to monitor.
[2020-05-03 12:00] VITALS: BP 133/69
--- NOTE | 2020-05-03 12:15 | Nephrology Progress Note ---
Assessment/Plan Problem List: (1) KORY (acute kidney injury) (2) Hypernatremia (3) Dehydration (4) Acute respiratory failure Assessment Patient presents with acute hypoxic respiratory failure requiring BiPAP Sepsis lactic acidosis KORY Dehydration, hypernatremia History of COPD Anemia Low BMI, malnutrition. BMI of 20.1 History of CVA History of diabetes mellitus Plan May 03: Labs reviewed. Renal parameters stable. Phosphorus supplement IV given. May 02: Serum sodium up to 144. Stable from renal standpoint of view. Continue per consultants. May 01: Serum serum sodium 136. Will stop D5W IV fluid. 1 dose of Lasix IV. Potassium supplement. Continue to monitor electrolytes. Continue per consultants. April 30: Serum sodium 146. Low phosphorus replaced. Continue pulmonary support and per consultants. April 29: Serum sodium normalized. Electrolytes within normal limit. Remains on nonrebreather mask. Continue per consultants. April 28: Continue D5W. Abnormal electrolytes addressed. Continue per consultants. Remains full code. Remains on nonrebreather mask. April 27: Continue D5W. Continue pulmonary support. Monitor renal parameters and electrolytes. Continue per consultants. Patient full code. Remains on nonrebreathing mask. Contreras catheter IV D5W Monitor electrolytes and renal parameters Antibiotics Avoid nephrotoxic's 2D echocardiogram Per orders Subjective ROS Limited/Unobtainable: Yes Objective Objective Last 24 Hour Vital Signs Date Time Temp Pulse Resp B/P (MAP) Pulse Ox O2 Delivery O2 Flow Rate FiO2 05/03/20 11:43 68 22 100 60 05/03/20 09:35 67 24 100 60 05/03/20 09:14 82 128/71 05/03/20 08:01 67 21 99 60 05/03/20 08:01 99 Bi-Pap 60 05/03/20 08:00 Bi-pap 05/03/20 08:00 78 05/03/20 08:00 60 05/03/20 08:00 98.2 82 18 128/71 (90) 99 05/03/20 05:26 84 22 100 60 05/03/20 04:00 60 05/03/20 04:00 Bi-pap 15.0 05/03/20 04:00 98.4 89 18 138/77 (97) 100 05/03/20 03:30 85 23 100 60 05/03/20 03:28 86 11/16/20 01:30 83 20 100 60 05/03/20 00:04 87 05/03/20 00:00 Bi-pap 15.0 05/03/20 00:00 97.5 85 18 124/74 (91) 100 05/02/20 23:12 87 28 97 60 05/02/20 21:21 80 20 95 60 05/02/20 20:00 97.5 73 18 135/80 (98) 100 05/02/20 20:00 94 Bi-Pap 60 05/02/20 20:00 Bi-pap 15.0 05/02/20 20:00 60 05/02/20 20:00 74 05/02/20 19:30 82 22 96 60 05/02/20 18:25 90 140/87 05/02/20 16:48 90 21 100 60 05/02/20 16:04 98.0 84 18 140/87 (104) 100 05/02/20 16:00 Bi-pap 15.0 05/02/20 16:00 87 05/02/20 16:00 60 05/02/20 14:45 71 23 100 60 05/02/20 12:45 64 20 93 60 Intake and Output 05/02/20 05/03/20 19:00 07:00 Intake Total 380 ml 540 ml Output Total 550 ml 500 ml Balance -170 ml 40 ml Free Water 100 ml 300 ml Tube Feeding 160 ml 240 ml Other 120 ml Output Urine Total 550 ml 500 ml Current Medications Medications (Trade) Dose Ordered Sig/Lopez Route PRN Reason Start Time Stop Time Status Last Admin Dose Admin Acetaminophen (Tylenol) 650 mg Q4H PRN ORAL fever 04/25/20 00:00 05/25/20 00:00 Apixaban (Eliquis) 5 mg BID ORAL 05/06/20 18:00 08/04/20 17:59 Apixaban (Eliquis) 10 mg BID ORAL 04/29/20 18:00 05/06/20 09:01 05/03/20 09:14 Chlorhexidine Gluconate (Arpita-Hex 2%) 1 applic DAILY@1999 TOPIC 04/29/20 20:00 07/28/20 19:59 05/02/20 20:22 Dextrose (Dextrose 50%) 25 ml Q30M PRN IV Hypoglycemia 04/25/20 00:00 07/24/20 00:00 Dextrose (Dextrose 50%) 50 ml Q30M PRN IV Hypoglycemia 04/25/20 00:00 07/24/20 00:00 Folic Acid (Folate) 1 mg DAILY ORAL 04/29/20 09:00 05/29/20 08:59 05/03/20 09:14 Insulin Aspart (NovoLOG) BEFORE MEALS AND HS SUBQ 04/25/20 06:30 07/24/20 06:29 04/28/20 06:22 Lamotrigine (LaMICtal) 25 mg DAILY ORAL 04/25/20 09:00 05/25/20 08:59 05/03/20 09:13 Memantine (Namenda) 5 mg TWICE A DAY ORAL 04/25/20 09:00 05/25/20 08:59 05/03/20 09:13 Metoprolol Tartrate (Lopressor) 50 mg BID GT 05/01/20 20:00 07/30/20 19:59 05/03/20 09:14 Olanzapine (ZyPREXA) 5 mg DAILY ORAL 04/25/20 09:00 06/09/20 08:59 05/03/20 09:13 Ondansetron HCl (Zofran) 4 mg Q6H PRN IVP Nausea & Vomiting 04/25/20 00:00 05/25/20 00:00 Polyethylene Glycol (Miralax) 17 gm DAILYPRN PRN ORAL Constipation 04/25/20 00:00 05/25/20 00:00 Potassium Phosphate 20 mm/ Sodium Chloride 281.6667 ml @ 46.944 m... ONCE ONCE IV 05/03/20 10:30 05/03/20 16:29 05/03/20 11:05 Potassium Chloride (K-Dur) 20 meq TWICE A DAY GT 05/01/20 12:15 07/30/20 12:14 05/03/20 09:13 Quetiapine Fumarate (SEROqueL) 50 mg Q12HR ORAL 04/27/20 11:30 06/11/20 11:29 05/03/20 09:13 Laboratory Tests 05/02/20 16:45: POC Whole Blood Glucose 113H 05/02/20 20:27: POC Whole Blood Glucose 110H 05/03/20 03:30: White Blood Count 7.6, Red Blood Count 3.30L, Hemoglobin 10.0L, Hematocrit 31.6L , Mean Corpuscular Volume 96, Mean Corpuscular Hemoglobin 30.3, Mean Corpuscular Hemoglobin Concent 31.7L, Red Cell Distribution Width 13.8, Platelet Count 211, Mean Platelet Volume 6.5, Neutrophils (%) (Auto) 75.7H, Lymphocytes (%) (Auto) 13.6L, Monocytes (%) (Auto) 6.8, Eosinophils (%) (Auto) 3.4H, Basophils (%) (Auto) 0.6, Sodium Level 144, Potassium Level 4.1, Chloride Level 111H, Carbon Dioxide Level 27, Anion Gap 7, Blood Urea Nitrogen 21H, Creatinine 0.8, Estimat Glomerular Filtration Rate > 60, Glucose Level 101, Calcium Level 7.6L, Phosphorus Level 2.4L, Magnesium Level 1.9, Total Bilirubin 0.4, Aspartate Amino Transf (AST/SGOT) 60H, Alanine Aminotransferase (ALT/SGPT) 44, Alkaline Phosphatase 97, Total Protein 4.7L, Albumin 1.4L, Globulin 3.3, Albumin/Globulin Ratio 0.4L 05/03/20 05:10: POC Whole Blood Glucose 124H 05/03/20 10:25: Arterial Blood pH 7.457H, Arterial Blood Partial Pressure CO2 32.0L, Arterial Blood Partial Pressure O2 131.2H, Arterial Blood HCO3 22.1, Arterial Blood Oxygen Saturation 98.6, Arterial Blood Base Excess -1.2, Pepe Test Positive 05/03/20 11:33: POC Whole Blood Glucose 109H Height (Feet): 6 Height (Inches): 0.00 Weight (Pounds): 148 General Appearance: no apparent distress EENT: other Cardiovascular: normal rate Respiratory/Chest: decreased breath sounds Abdomen: distended Maximino Castillo MD May 03, 2020 12:15
--- NOTE | 2020-05-03 13:52 | NUR ---
Social Work This SW received a consult to assist with locating family. Patient is from [facility], requires total care and currently unresponsive. This SW spoke with Medical Records, Alina @ [facility] who explains patient was his own decision maker (does not have any identified family or friends). This SW recommended MD to consent for emergency treatment, with Bioethics to follow for end of life decision making, as needed. [facility] informed.
[2020-05-03 16:00] VITALS: BP 139/55
--- NOTE | 2020-05-03 16:24 | Psychiatry Consultation ---
Psychiatry Consultation Psychiatry Consultation Chief Complaint: Dyspnea/Respdistress History of Present Illness: 80-year-old male patient is depressed confused he got respiratory deficiency declining cognition below his baseline altered mental status causing a decline in his cognition below his baseline as well as attending his p.o. daily psychiatric consultation Mental status examination: 80-year-old male appearance is disheveled at irritable agitated affect guarded restricted intellect poor mood depressed anxious motor activity psychomotor agitation judgment is poor orientation x2 speech is low volume clear thought processes organized logical insight judgment is poor Allergies: Coded Allergies: No Known Allergies (Unverified , 06/11/17) Medication History Scheduled Amino Acids/Protein Hydrolys (Pro-Stat Liquid), 30 ML ORAL DAILY, (Reported) Aspirin (Aspirin EC), 81 MG ORAL DAILY, (Reported) Docusate Sodium* (Colace*), 100 MG ORAL DAILY, (Reported) Folic Acid* (Folic Acid*), 1 MG ORAL DAILY, (Reported) Heparin Sod (Porcine) (Heparin Sodium*), 5,000 UNITS SUBQ DAILY, (Reported) Lamotrigine* (Lamictal*), 25 MG ORAL DAILY, (Reported) Lisinopril (Lisinopril*), 20 MG ORAL BID, (Reported) Memantine Hcl* (Namenda*), 5 MG ORAL TWICE A DAY, (Reported) Multivitamin With Minerals (Multivitamins With Minerals*), 1 TAB ORAL DAILY, (Reported) Olanzapine* (Zyprexa*), 5 MG ORAL DAILY, (Reported) Sennosides (Senna), 2 TAB PO BEDTIME, (Reported) Scheduled PRN Acetaminophen* (Acetaminophen 325MG Tablet*), 650 MG ORAL Q4H PRN for Fever /Headache/Mild Pain, (Reported) Bisacodyl (Dulcolax), 10 MG RC for Constipation, (Reported) Hydralazine Hcl* (Hydralazine Hcl*), 10 MG ORAL Q4HR PRN for SBP > 160 , (Reported) Ipratropium/Albuterol Sulfate (DuoNeb 0.5-3(2.5)mg/3ml), 1 UNIT HHN EVERY 6 HOURS PRN for Shortness of Breath, (Reported) Magnesium Hydroxide* (Milk Of Magnesia*), 30 ML ORAL EVERY 6 HOURS PRN for Constipation, (Reported) Na Phos,M-B/Na Phos,Di-Ba* (Fleet Enema*), 133 ML RECTAL DAILY PRN for Constipation, (Reported) Nitroglycerin 0.4MG table* (Nitroglycerin*), 0.4 MG SL .Q5MIN X 3 DOSES PRN for CHEST PAIN, (Reported) Miscellaneous Medications Insulin Lispro (Humalog), 0 SUBQ, (Reported) Discontinued Medications Ascorbic Acid* (Vitamin C*), 500 MG ORAL DAILY, (Reported) Discontinued Reason: Pt stopped taking med Benazepril Hcl* (Lotensin*), 20 MG ORAL BID, (Reported) Discontinued Reason: Pt stopped taking med Calcium Carbonate/Vitamin D3 (Calcium 500 + Vit D 200 Tablet), 1 EACH PO BID, (Reported) Discontinued Reason: Pt stopped taking med Cranberry Extract (Cranberry), 425 MG PO, (Reported) Discontinued Reason: Pt stopped taking med Escitalopram Oxalate* (Lexapro*), 10 MG ORAL DAILY, (Reported) Discontinued Reason: Pt stopped taking med Folic Acid/Vitamin B Comp W-C (Sarah-Ruben Tablet), 0.8 MG PO DAILY, (Reported) Discontinued Reason: Pt stopped taking med Insulin Aspart* (Novolog*), 0 SUBQ BEFORE MEALS AND HS, (Reported) Discontinued Reason: Pt stopped taking med Lamotrigine* (Lamictal*), 25 MG ORAL DAILY, (Reported) Discontinued Reason: Pt stopped taking med Levofloxacin* (Levaquin*), 750 MG ORAL DAILY, (Reported) Discontinued Reason: Pt stopped taking med Lisinopril* (Lisinopril*), 20 MG ORAL DAILY, (Reported) Discontinued Reason: Prescription changed Lorazepam* (Ativan*), 0.5 MG ORAL EVERY 6 HOURS, (Reported) Discontinued Reason: Pt stopped taking med Memantine Hcl* (Namenda*), 5 MG ORAL DAILY, (Reported) Discontinued Reason: Pt stopped taking med Olanzapine* (Zyprexa*), 5 MG ORAL HS, (Reported) Discontinued Reason: Pt stopped taking med Temazepam* (Restoril*), 15 MG ORAL BEDTIME PRN for Insomnia, (Reported) Discontinued Reason: Pt stopped taking med Vitamin B Cmplx/Vit C/Folic AC (Nephro-Ruben Tablet), 1 TAB ORAL DAILY, (Reported) Discontinued Reason: Pt stopped taking med Objective Data Height (Feet): 6 Height (Inches): 0.00 Weight (Pounds): 148 Assessment/Plan Assessment/Plan: Continue the patient on Lamictal, Zyprexa, Ativan and Namenda. 20min of insight oriented psychotherapy to help him recognize his psychical and cogintive deficits so that he has less depression and better impulse control. Diagnosis [place]: Schizoaffective bipolar type Dakota Monroe MD May 03, 2020 16:24
--- NOTE | 2020-05-03 18:54 | NUR ---
NURSE NOTES: Received report from CRUZ Lassiter. pt is seen lying in bed in semi- bullock's position. Pt is attached to venturi mask. tolerating well with o2 sat- 98%. Pt is lethargic as per prev nurse that was pt base line on her shift. Pt has Left nares NGT patent and still intact. With PICC line on ELI still patent and intact and LA with g22 patent and intact.Pt breathing is even and unlabored. Bed in lowest position. Call light within reach. Continue to plan [facility] care.
--- NOTE | 2020-05-03 19:06 | Pulmonolgy Critical Care Note ---
Critical Care - Asmt/Plan Problems: (1) Acute respiratory failure (2) Acute massive pulmonary embolism (3) Acute deep vein thrombosis (DVT) (4) ATN (acute tubular necrosis) (5) Acute encephalopathy (6) UTI (urinary tract infection) (7) Protein-calorie malnutrition, severe (8) Diabetes (9) HTN (hypertension) (10) CVA (cerebral vascular accident) Respiratory: monitor respiratory rate, adjust FIO2, CXR Cardiac: continue to monitor HR/BP Renal: F/U I&O Infectious Disease: check cultures, continue antibiotics Gastrointestinal: continue feedings/current rate Endocrine: monitor blood sugar, continue sliding scale insulin Hematologic: transfuse if hgb<8.5 Neurologic: PRN Ativan, PRN Morphine, keep patient comfortable Affect: PRN ativan Prophylaxis: Protonix, Heparin Notes 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, 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, 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 with: nurses, consultants Critical Care - Objective Last 24 Hour Vital Signs Date Time Temp Pulse Resp B/P (MAP) Pulse Ox O2 Delivery O2 Flow Rate FiO2 05/03/20 17:12 79 139/55 05/03/20 16:35 96 Venturi Mask 10.0 45 05/03/20 16:00 98.1 72 17 139/55 (83) 100 05/03/20 16:00 Bi-pap 05/03/20 16:00 10.0 45 05/03/20 16:00 79 05/03/20 13:29 71 22 97 45 05/03/20 13:00 45 05/03/20 12:00 Bi-pap 05/03/20 12:00 97.7 67 16 133/69 (90) 100 05/03/20 12:00 60 05/03/20 12:00 69 05/03/20 11:43 68 22 100 60 05/03/20 09:35 67 24 100 60 05/03/20 09:14 82 128/71 05/03/20 08:01 67 21 99 60 05/03/20 08:01 99 Bi-Pap 60 05/03/20 08:00 Bi-pap 05/03/20 08:00 78 05/03/20 08:00 60 05/03/20 08:00 98.2 82 18 128/71 (90) 99 05/03/20 05:26 84 22 100 60 05/03/20 04:00 60 05/03/20 04:00 Bi-pap 15.0 05/03/20 04:00 98.4 89 18 138/77 (97) 100 05/03/20 03:30 85 23 100 60 05/03/20 03:28 86 05/03/20 01:30 83 20 100 60 05/03/20 00:04 87 05/03/20 00:00 Bi-pap 15.0 05/03/20 00:00 97.5 85 18 124/74 (91) 100 05/02/20 23:12 87 28 97 60 05/02/20 21:21 80 20 95 60 05/02/20 20:00 97.5 73 18 135/80 (98) 100 05/02/20 20:00 94 Bi-Pap 60 05/02/20 20:00 Bi-pap 15.0 05/02/20 20:00 60 05/02/20 20:00 74 05/02/20 19:30 82 22 96 60 Status: sedated, somnolent Condition: critical HEENT: atraumatic, normocephalic Lungs: clear Heart: HR/BP stable Abdomen: soft, feeding tube Extremities: no C/C/E Accucheck: 119 Critical Care - Subjective ROS Limited/Unobtainable: Yes Condition: critical EKG Rhythm: Sinus Rhythm FI02: 45 Vent Support Breath Rate: 18 Vent Support Mode: BiLevel Sputum Amount: None Tube Feeding Amount: 40 I&O: Intake and Output 05/02/20 05/03/20 19:00 07:00 Intake Total 380 ml 540 ml Output Total 550 ml 500 ml Balance -170 ml 40 ml Free Water 100 ml 300 ml Tube Feeding 160 ml 240 ml Other 120 ml Output Urine Total 550 ml 500 ml CXR: opacification of left lung Labs: Laboratory Tests Test 05/02/20 20:27 05/03/20 03:30 05/03/20 05:10 05/03/20 10:25 POC Whole Blood Glucose 110 MG/DL (74-106) H 124 MG/DL (74-106) H White Blood Count 7.6 K/UL (4.8-10.8) Red Blood Count 3.30 M/UL (4.70-6.10) L Hemoglobin 10.0 G/DL (14.2-18.0) L Hematocrit 31.6 % (42.0-52.0) L Mean Corpuscular Volume 96 FL (80-99) Mean Corpuscular Hemoglobin 30.3 PG (27.0-31.0) Mean Corpuscular Hemoglobin Concent 31.7 G/DL (32.0-36.0) L Red Cell Distribution Width 13.8 % (11.6-14.8) Platelet Count 211 K/UL (150-450) Mean Platelet Volume 6.5 FL (6.5-10.1) Neutrophils (%) (Auto) 75.7 % (45.0-75.0) H Lymphocytes (%) (Auto) 13.6 % (20.0-45.0) L Monocytes (%) (Auto) 6.8 % (1.0-10.0) Eosinophils (%) (Auto) 3.4 % (0.0-3.0) H Basophils (%) (Auto) 0.6 % (0.0-2.0) Sodium Level 144 MMOL/L (136-145) Potassium Level 4.1 MMOL/L (3.5-5.1) Chloride Level 111 MMOL/L (98-107) H Carbon Dioxide Level 27 MMOL/L (21-32) Anion Gap 7 mmol/L (5-15) Blood Urea Nitrogen 21 mg/dL (7-18) H Creatinine 0.8 MG/DL (0.55-1.30) Estimat Glomerular Filtration Rate > 60 mL/min (>60) Glucose Level 101 MG/DL (74-106) Calcium Level 7.6 MG/DL (8.5-10.1) L Phosphorus Level 2.4 MG/DL (2.5-4.9) L Magnesium Level 1.9 MG/DL (1.8-2.4) Total Bilirubin 0.4 MG/DL (0.2-1.0) Aspartate Amino Transf (AST/SGOT) 60 U/L (15-37) H Alanine Aminotransferase (ALT/SGPT) 44 U/L (12-78) Alkaline Phosphatase 97 U/L (46-116) Total Protein 4.7 G/DL (6.4-8.2) L Albumin 1.4 G/DL (3.4-5.0) L Globulin 3.3 g/dL Albumin/Globulin Ratio 0.4 (1.0-2.7) L Arterial Blood pH 7.457 (7.350-7.450) Arterial Blood Partial Pressure CO2 32.0 mmHg (35.0-45.0) L Arterial Blood Partial Pressure O2 131.2 mmHg (75.0-100.0) H Arterial Blood HCO3 22.1 mmol/L (22.0-26.0) Arterial Blood Oxygen Saturation 98.6 % (95-100) Arterial Blood Base Excess -1.2 (-2-2) Pepe Test Positive Test 05/03/20 11:33 05/03/20 17:09 POC Whole Blood Glucose 109 MG/DL (74-106) H Pending Luzmaria Downey MD May 03, 2020 19:06
--- NOTE | 2020-05-03 19:08 | Pulmonolgy Critical Care Note ---
Critical Care - Asmt/Plan Problems: (1) Acute respiratory failure (2) Acute massive pulmonary embolism (3) Acute deep vein thrombosis (DVT) (4) ATN (acute tubular necrosis) (5) Acute encephalopathy (6) UTI (urinary tract infection) (7) Protein-calorie malnutrition, severe (8) Diabetes (9) HTN (hypertension) (10) CVA (cerebral vascular accident) Respiratory: monitor respiratory rate, adjust FIO2, CXR Cardiac: continue to monitor HR/BP Renal: F/U I&O Infectious Disease: check cultures, continue antibiotics Gastrointestinal: continue feedings/current rate Endocrine: monitor blood sugar, check HgA1C Hematologic: monitor H/H Affect: PRN ativan Prophylaxis: Protonix, Heparin Disposition: keep in ICU Time Spent (Minutes): 40 Notes Reviewed: loan assistant Discussed with: nurses, consultants, lead case managerlands resource manager - Objective Last 24 Hour Vital Signs Date Time Temp Pulse Resp B/P (MAP) Pulse Ox O2 Delivery O2 Flow Rate FiO2 05/03/20 17:12 79 139/55 05/03/20 16:35 96 Venturi Mask 10.0 45 05/03/20 16:00 98.1 72 17 139/55 (83) 100 05/03/20 16:00 Bi-pap 05/03/20 16:00 10.0 45 05/03/20 16:00 79 05/03/20 13:29 71 22 97 45 05/03/20 13:00 45 05/03/20 12:00 Bi-pap 05/03/20 12:00 97.7 67 16 133/69 (90) 100 05/03/20 12:00 60 05/03/20 12:00 69 05/03/20 11:43 68 22 100 60 05/03/20 09:35 67 24 100 60 05/03/20 09:14 82 128/71 05/03/20 08:01 67 21 99 60 05/03/20 08:01 99 Bi-Pap 60 05/03/20 08:00 Bi-pap 05/03/20 08:00 78 05/03/20 08:00 60 05/03/20 08:00 98.2 82 18 128/71 (90) 99 05/03/20 05:26 84 22 100 60 05/03/20 04:00 60 05/03/20 04:00 Bi-pap 15.0 05/03/20 04:00 98.4 89 18 138/77 (97) 100 05/03/20 03:30 85 23 100 60 05/03/20 03:28 86 05/03/20 01:30 83 20 100 60 05/03/20 00:04 87 05/03/20 00:00 Bi-pap 15.0 05/03/20 00:00 97.5 85 18 124/74 (91) 100 05/02/20 23:12 87 28 97 60 05/02/20 21:21 80 20 95 60 05/02/20 20:00 97.5 73 18 135/80 (98) 100 05/02/20 20:00 94 Bi-Pap 60 05/02/20 20:00 Bi-pap 15.0 05/02/20 20:00 60 05/02/20 20:00 74 05/02/20 19:30 82 22 96 60 Status: sedated Condition: critical HEENT: atraumatic Lungs: clear Heart: HR/BP stable Abdomen: non-tender Extremities: no C/C/E Accucheck: 119 Critical Care - Subjective ROS Limited/Unobtainable: Yes Condition: critical EKG Rhythm: Sinus Rhythm FI02: 45 Vent Support Breath Rate: 18 Vent Support Mode: BiLevel Sputum Amount: None Tube Feeding Amount: 40 I&O: Intake and Output 05/02/20 05/03/20 19:00 07:00 Intake Total 380 ml 540 ml Output Total 550 ml 500 ml Balance -170 ml 40 ml Free Water 100 ml 300 ml Tube Feeding 160 ml 240 ml Other 120 ml Output Urine Total 550 ml 500 ml Luzmaria Downey MD May 03, 2020 19:08
--- NOTE | 2020-05-03 19:14 | NUR ---
NURSE HAND-OFF REPORT: Important Events on Shift: ABG done, titrating of BIPAP, chest x-ray, MD aware of result Patient Status: stable/guarded Diet: vital AF @ 40ml/h Pending Orders: na Pending Results/Labs:[na Pending MD notification:na Latest Vital Signs: Temperature 98.1 , Pulse 79 , B/P 139 /55 , Respiratory Rate 17 , O2 SAT 96 , Bi-pap, O2 Flow Rate 10.0 . Vital Sign Comment: stable EKG Rhythm: Sinus Rhythm Rhythm change?: N Notified?: N -Dr. Tesfaye SAAVEDRA Response: Latest Andersen Fall Score: 70 Fall Risk: High Risk Safety Measures: Call light Within Reach, Bed Alarm Zone 2, Side Rails Side Rails x3, Bed position Low and Locked. Fall Precautions: Yellow Socks Yellow Gown Door Sign Patient Fall Education Report given to CRUZ Muir.
--- NOTE | 2020-05-03 19:30 | NUR ---
NURSE NOTES: Initial assessment done. Positioned pt left lung elevated with Pillow and semi-bullock's position. Pt o2 sat 98% on Venturi mask. Not in apparent distress. Continue to monitor pt.
[2020-05-03 20:00] VITALS: BP 136/70
--- NOTE | 2020-05-03 20:00 | NUR ---
NURSE NOTES: Informed Dr. Whitney regarding episode of SR with PAC/ No new orders noted at this time. Continue to plan of care.
[2020-05-03] MEDS: Dyna-Hex 2% Top Sol 2oz TOPIC SCH (20:20)
--- NOTE | 2020-05-03 22:56 | NUR ---
NURSE NOTES: Thick secretions noted, Suctioned by RT. O2 sat- 94-95%. Continue to plan of care.
--- NOTE | 2020-05-03 23:59 | Cardiology Progress Note ---
Assessment/Plan Assessment/Plan 1. Wandering pacemaker or multifocal atrial rhythm, now in sinus rhythm with a few APCs, continue metoprolol. 2. Dyspnea most likely due to bilateral pulmonary emboli, on Eliquis, 2D echo reveals normal LV function. 3. History of CVA with left hemiparesis. 4. Hypoxic respiratory failure, on bipap mask. 5. Diabetes Mellitus, continue ASA and statins. 6. Dysphagia Subjective Subjective Sinus rhythm at rate of 66. APCs noted. On venturi mask. Objective Last 24 Hour Vital Signs Date Time Temp Pulse Resp B/P (MAP) Pulse Ox O2 Delivery O2 Flow Rate FiO2 05/03/20 20:00 Venturi Mask 05/03/20 20:00 96.3 66 21 136/70 (92) 97 05/03/20 20:00 10.0 45 05/03/20 20:00 75 05/03/20 17:12 79 139/55 05/03/20 16:35 96 Venturi Mask 10.0 45 05/03/20 16:00 98.1 72 17 139/55 (83) 100 05/03/20 16:00 Bi-pap 05/03/20 16:00 10.0 45 05/03/20 16:00 79 05/03/20 13:29 71 22 97 45 05/03/20 13:00 45 05/03/20 12:00 Bi-pap 05/03/20 12:00 97.7 67 16 133/69 (90) 100 05/03/20 12:00 60 05/03/20 12:00 69 05/03/20 11:43 68 22 100 60 05/03/20 09:35 67 24 100 60 05/03/20 09:14 82 128/71 05/03/20 08:01 67 21 99 60 05/03/20 08:01 99 Bi-Pap 60 05/03/20 08:00 Bi-pap 05/03/20 08:00 78 05/03/20 08:00 60 05/03/20 08:00 98.2 82 18 128/71 (90) 99 05/03/20 05:26 84 22 100 60 05/03/20 04:00 60 05/03/20 04:00 Bi-pap 15.0 05/03/20 04:00 98.4 89 18 138/77 (97) 100 05/03/20 03:30 85 23 100 60 05/03/20 03:28 86 05/03/20 01:30 83 20 100 60 05/03/20 00:04 87 05/03/20 00:00 Bi-pap 15.0 05/03/20 00:00 97.5 85 18 124/74 (91) 100 Intake and Output 05/02/20 05/03/20 19:00 07:00 Intake Total 380 ml 540 ml Output Total 550 ml 500 ml Balance -170 ml 40 ml Free Water 100 ml 300 ml Tube Feeding 160 ml 240 ml Other 120 ml Output Urine Total 550 ml 500 ml CXR: reviewed 2D Echo: LVEF 55%, limited views Laboratory Tests Test 05/03/20 03:30 05/03/20 05:10 05/03/20 10:25 05/03/20 11:33 White Blood Count 7.6 K/UL (4.8-10.8) Red Blood Count 3.30 M/UL (4.70-6.10) L Hemoglobin 10.0 G/DL (14.2-18.0) L Hematocrit 31.6 % (42.0-52.0) L Mean Corpuscular Volume 96 FL (80-99) Mean Corpuscular Hemoglobin 30.3 PG (27.0-31.0) Mean Corpuscular Hemoglobin Concent 31.7 G/DL (32.0-36.0) L Red Cell Distribution Width 13.8 % (11.6-14.8) Platelet Count 211 K/UL (150-450) Mean Platelet Volume 6.5 FL (6.5-10.1) Neutrophils (%) (Auto) 75.7 % (45.0-75.0) H Lymphocytes (%) (Auto) 13.6 % (20.0-45.0) L Monocytes (%) (Auto) 6.8 % (1.0-10.0) Eosinophils (%) (Auto) 3.4 % (0.0-3.0) H Basophils (%) (Auto) 0.6 % (0.0-2.0) Sodium Level 144 MMOL/L (136-145) Potassium Level 4.1 MMOL/L (3.5-5.1) Chloride Level 111 MMOL/L (98-107) H Carbon Dioxide Level 27 MMOL/L (21-32) Anion Gap 7 mmol/L (5-15) Blood Urea Nitrogen 21 mg/dL (7-18) H Creatinine 0.8 MG/DL (0.55-1.30) Estimat Glomerular Filtration Rate > 60 mL/min (>60) Glucose Level 101 MG/DL (74-106) Calcium Level 7.6 MG/DL (8.5-10.1) L Phosphorus Level 2.4 MG/DL (2.5-4.9) L Magnesium Level 1.9 MG/DL (1.8-2.4) Total Bilirubin 0.4 MG/DL (0.2-1.0) Aspartate Amino Transf (AST/SGOT) 60 U/L (15-37) H Alanine Aminotransferase (ALT/SGPT) 44 U/L (12-78) Alkaline Phosphatase 97 U/L (46-116) Total Protein 4.7 G/DL (6.4-8.2) L Albumin 1.4 G/DL (3.4-5.0) L Globulin 3.3 g/dL Albumin/Globulin Ratio 0.4 (1.0-2.7) L POC Whole Blood Glucose 124 MG/DL (74-106) H 109 MG/DL (74-106) H Arterial Blood pH 7.457 (7.350-7.450) Arterial Blood Partial Pressure CO2 32.0 mmHg (35.0-45.0) L Arterial Blood Partial Pressure O2 131.2 mmHg (75.0-100.0) H Arterial Blood HCO3 22.1 mmol/L (22.0-26.0) Arterial Blood Oxygen Saturation 98.6 % (95-100) Arterial Blood Base Excess -1.2 (-2-2) Peep Test Positive Test 05/03/20 17:09 05/03/20 20:19 POC Whole Blood Glucose Pending 118 MG/DL (74-106) H Objective HEENT: normocephalic, atraumatic, bilateral eye PERRL, bilateral eye EOMI, on venturi mask. Neck: JVP cannot be assessed, no carotid bruit. Respiratory: Bilateral rhonchi Cardiovascular: normal S1S2, irregularly irregular rhythm, no murmurs, gallops or rubs Gastrointestinal: non tender, soft, non-distended, no guarding Extremities: No edema, clubbing or cyanosis. Neurologic: Left hemiparesis, responds to commands, localizes to pain Gama Whitney MD May 03, 2020 23:59
[2020-05-04] VITALS: BP 117/59
--- NOTE | 2020-05-04 01:00 | NUR ---
NURSE NOTES: Seen pt in bed. In semi- bullock's position, elevated left side. Cleaned pt and sponge bath given. Pt has no pain. No facial grimace noted. O2 sat- 99%. Continue to plan of care.
[2020-05-04 04:00] VITALS: BP 124/68
--- NOTE | 2020-05-04 04:44 | NUR ---
NURSE NOTES: Pt is seen in semi- bullock's position. Left side elevated to expand lungs. Not in apparent distress. Tolerating well with Venturi mask- 100% o2 sat.Suctioned secretion PRN noted thick sputum white in color. Bed in lowest position, call light within reach. Patent NGT on left nares. Padded side rails for Seizure precaution. Continue to plan of care.
[2020-05-04 05:14] LABS: BASOPHILS % (AUTO) 0.5 % (0.0-2.0); EOSINOPHILS % (AUTO) 3.9 % (0.0-3.0); HEMATOCRIT 30.1 % (42.0-52.0); HEMOGLOBIN 9.7 G/DL (14.2-18.0); LYMPHOCYTES % (AUTO) 15.1 % (20.0-45.0); MEAN CORPUSCULAR VOLUME 95 FL (80-99); MONOCYTES % (AUTO) 5.9 % (1.0-10.0); NEUTROPHILS % (AUTO) 74.7 % (45.0-75.0); PLATELET COUNT 228 K/UL (150-450); RED BLOOD COUNT 3.16 M/UL (4.70-6.10); RED CELL DISTRIBUTION WIDTH 13.9 % (11.6-14.8); WHITE BLOOD COUNT 8.2 K/UL (4.8-10.8)
[2020-05-04 05:20] LABS: ANION GAP 5 mmol/L (5-15); BLOOD UREA NITROGEN 21 mg/dL (7-18); CALCIUM 7.5 MG/DL (8.5-10.1); CARBON DIOXIDE 26 MMOL/L (21-32); CHLORIDE 111 MMOL/L (98-107); CREATININE 0.7 MG/DL (0.55-1.30); POTASSIUM 4.5 MMOL/L (3.5-5.1); SODIUM 142 MMOL/L (136-145)
--- NOTE | 2020-05-04 06:12 | NUR ---
NURSE NOTES: Suctioned secretions by RT, noted thick sputum. Pt is still the same lethargic as per baseline. Not in respiratory distress. o2 sat- 100%. tolerating venturi mask. Continue to plan of care.
[2020-05-04] MEDS: NovoLOG Insulin Flexpen SUBQ SCH ×4 (06:19→20:14)
--- NOTE | 2020-05-04 06:45 | Hematology/Onc Progress Note ---
Assessment/Plan Assessment/Plan # Bilateral pulmonary emboli on cta as well as Dvt on duplex --> Equivocal evidence of right heart strain; RV /LV ratio around 0.5 but is somewhat difficult to assess due to ventricular muscle hypertrophy --> duplex Positive for bilateral lower extremity deep venous thrombosis, as described --> continue on heparin gtt until stabilizes, then consider noac --> 04/29 started on eliquis # Anemia of chronic disease, anemia panel is noted --> r/o bleed, is on anticoag --> hgb 10-->8.7-->8.5-->9.4-->9.7 -> no hemolysis is noted # Leukocytosis due to sepsis/uti --> ABX Cefepime/vanc-->off --> smear is reviewed # COPD. --> breathing rx as needed # Diabetes mellitus --> iss, accuchecks qac and qhs # Schizophrenia. --> per psych recs # History of CVA with left hemiparesis. # Dementia. # Dysphagia with ngt # Folate def # Dvt ppx eliquis Appreciate consultation and jorge l Rn Subjective Constitutional: Denies: no symptoms, chills, fever, malaise, weakness, other Cardiovascular: Denies: no symptoms, chest pain, edema, irregular heart rate, lightheadedness, palpitations, syncope, other Gastrointestinal/Abdominal: Denies: no symptoms, abdomen distended, abdominal pain, black stools, tarry stools, blood in stool, constipated, diarrhea, difficulty swallowing, nausea, poor appetite, poor fluid intake, rectal bleeding, vomiting, other Genitourinary: Denies: no symptoms, burning, discharge, frequency, flank pain, hematuria, incontinence, pain, urgency, other Neurologic/Psychiatric: Denies: no symptoms, anxiety, depressed, emotional problems, headache, numbness, paresthesia, pre-existing deficit, seizure, tingling, tremors, weakness, other Endocrine: Denies: no symptoms, excessive sweating, flushing, intolerance to cold, intolerance to heat, increased hunger, increased thirst, increased urine, unexplained weight gain, unexplained weight loss, other Hematologic/Lymphatic: Denies: no symptoms, anemia, easy bleeding, easy bruising, adenopathy, other Allergies: Coded Allergies: No Known Allergies (Unverified , 06/11/17) Subjective 04/29 remains on heparin gtt, labs noted, no bleeding, h/h stable, on folate 04/30 meds noted, changed to apixaban, labs noted 05/02 asleep, no bleeding, meds noted, labs reviewed, on noac 05/03 is asleep, no bleeding, no night sweats reported, cbc noted 05/04 remains lethargic, hgb 9.7, no bleeding, meds noted Objective Objective Current Medications Medications (Trade) Dose Ordered Sig/Lopez Route PRN Reason Start Time Stop Time Status Last Admin Dose Admin Acetaminophen (Tylenol) 650 mg Q4H PRN ORAL fever 04/25/20 00:00 05/25/20 00:00 Apixaban (Eliquis) 5 mg BID ORAL 05/06/20 18:00 08/04/20 17:59 Apixaban (Eliquis) 10 mg BID ORAL 04/29/20 18:00 05/06/20 09:01 05/03/20 17:11 Chlorhexidine Gluconate (Arpita-Hex 2%) 1 applic DAILY@2000 TOPIC 04/29/20 20:00 07/28/20 19:59 05/03/20 20:20 Dextrose (Dextrose 50%) 25 ml Q30M PRN IV Hypoglycemia 04/25/20 00:00 07/24/20 00:00 Dextrose (Dextrose 50%) 50 ml Q30M PRN IV Hypoglycemia 04/25/20 00:00 07/24/20 00:00 Folic Acid (Folate) 1 mg DAILY ORAL 04/29/20 09:00 05/29/20 08:59 05/03/20 09:14 Insulin Aspart (NovoLOG) BEFORE MEALS AND HS SUBQ 04/25/20 06:30 07/24/20 06:29 04/28/20 06:22 Lamotrigine (LaMICtal) 25 mg DAILY ORAL 04/25/20 09:00 05/25/20 08:59 05/03/20 09:13 Memantine (Namenda) 5 mg TWICE A DAY ORAL 04/25/20 09:00 05/25/20 08:59 05/03/20 17:11 Metoprolol Tartrate (Lopressor) 50 mg BID GT 05/01/20 20:00 07/30/20 19:59 05/03/20 17:12 Olanzapine (ZyPREXA) 5 mg DAILY ORAL 04/25/20 09:00 06/09/20 08:59 05/03/20 09:13 Ondansetron HCl (Zofran) 4 mg Q6H PRN IVP Nausea & Vomiting 04/25/20 00:00 05/25/20 00:00 Polyethylene Glycol (Miralax) 17 gm DAILYPRN PRN ORAL Constipation 04/25/20 00:00 05/25/20 00:00 Potassium Chloride (K-Dur) 20 meq TWICE A DAY GT 05/01/20 12:15 07/30/20 12:14 05/03/20 17:11 Quetiapine Fumarate (SEROqueL) 50 mg Q12HR ORAL 04/27/20 11:30 06/11/20 11:29 05/03/20 20:20 Last 24 Hour Vital Signs Date Time Temp Pulse Resp B/P (MAP) Pulse Ox O2 Delivery O2 Flow Rate FiO2 05/04/20 04:00 97.9 83 21 124/68 (86) 100 05/04/20 04:00 79 05/04/20 04:00 10.0 45 05/04/20 04:00 Venturi Mask 05/04/20 00:21 75 05/04/20 00:00 10.0 45 05/04/20 00:00 Venturi Mask 05/04/20 00:00 98.1 71 22 117/59 (78) 98 05/03/20 20:00 Venturi Mask 05/03/20 20:00 96.3 66 21 136/70 (92) 97 05/03/20 20:00 10.0 45 05/03/20 20:00 75 05/03/20 17:12 79 139/55 05/03/20 16:35 96 Venturi Mask 10.0 45 05/03/20 16:00 98.1 72 17 139/55 (83) 100 05/03/20 16:00 Bi-pap 05/03/20 16:00 10.0 45 05/03/20 16:00 79 05/03/20 13:29 71 22 97 45 05/03/20 13:00 45 05/03/20 12:00 Bi-pap 05/03/20 12:00 97.7 67 16 133/69 (90) 100 05/03/20 12:00 60 05/03/20 12:00 69 05/03/20 11:43 68 22 100 60 05/03/20 09:35 67 24 100 60 05/03/20 09:14 82 128/71 05/03/20 08:01 67 21 99 60 05/03/20 08:01 99 Bi-Pap 60 05/03/20 08:00 Bi-pap 05/03/20 08:00 78 05/03/20 08:00 60 05/03/20 08:00 98.2 82 18 128/71 (90) 99 05/03/20 05:26 84 22 100 60 05/03/20 04:00 60 05/03/20 04:00 Bi-pap 15.0 05/03/20 04:00 98.4 89 18 138/77 (97) 100 05/03/20 03:30 85 23 100 60 05/03/20 03:28 86 05/03/20 01:30 83 20 100 60 05/03/20 00:04 87 05/03/20 00:00 Bi-pap 15.0 05/03/20 00:00 97.5 85 18 124/74 (91) 100 05/02/20 23:12 87 28 97 60 05/02/20 21:21 80 20 95 60 05/02/20 20:00 97.5 73 18 135/80 (98) 100 05/02/20 20:00 94 Bi-Pap 60 05/02/20 20:00 Bi-pap 15.0 05/02/20 20:00 60 05/02/20 20:00 74 05/02/20 19:30 82 22 96 60 05/02/20 18:25 90 140/87 05/02/20 16:48 90 21 100 60 05/02/20 16:04 98.0 84 18 140/87 (104) 100 05/02/20 16:00 Bi-pap 15.0 05/02/20 16:00 87 05/02/20 16:00 60 05/02/20 14:45 71 23 100 60 05/02/20 12:45 64 20 93 60 05/02/20 12:00 65 05/02/20 12:00 Bi-pap 15.0 05/02/20 12:00 60 05/02/20 11:48 97.2 61 20 109/55 (73) 100 05/02/20 10:37 65 20 99 60 05/02/20 10:06 63 109/63 05/02/20 08:56 63 19 99 60 05/02/20 08:00 60 05/02/20 08:00 98.4 68 18 109/63 (78) 100 05/02/20 08:00 Bi-pap 15.0 05/02/20 08:00 73 05/02/20 07:38 93 Bi-Pap 60 05/02/20 06:55 71 21 93 60 Intake and Output 05/03/20 05/04/20 19:00 07:00 Intake Total 811.664 ml 590 ml Output Total 800 ml 1000 ml Balance 11.664 ml -410 ml Free Water 150 ml 150 ml IV Total 281.664 ml Tube Feeding 380 ml 440 ml Output Urine Total 800 ml 1000 ml # Bowel Movements 1 Labs Test 05/01/20 11:46 05/01/20 16:37 05/01/20 20:15 05/02/20 04:30 POC Whole Blood Glucose 125 MG/DL (74-106) 126 MG/DL (74-106) 100 MG/DL (74-106) White Blood Count 5.5 K/UL (4.8-10.8) Red Blood Count 3.08 M/UL (4.70-6.10) Hemoglobin 9.4 G/DL (14.2-18.0) Hematocrit 29.5 % (42.0-52.0) Mean Corpuscular Volume 96 FL (80-99) Mean Corpuscular Hemoglobin 30.7 PG (27.0-31.0) Mean Corpuscular Hemoglobin Concent 32.0 G/DL (32.0-36.0) Red Cell Distribution Width 14.1 % (11.6-14.8) Platelet Count 176 K/UL (150-450) Mean Platelet Volume 7.3 FL (6.5-10.1) Neutrophils (%) (Auto) 71.2 % (45.0-75.0) Lymphocytes (%) (Auto) 14.6 % (20.0-45.0) Monocytes (%) (Auto) 8.1 % (1.0-10.0) Eosinophils (%) (Auto) 5.3 % (0.0-3.0) Basophils (%) (Auto) 0.7 % (0.0-2.0) Sodium Level 144 MMOL/L (136-145) Potassium Level 3.6 MMOL/L (3.5-5.1) Chloride Level 113 MMOL/L (98-107) Carbon Dioxide Level 25 MMOL/L (21-32) Anion Gap 6 mmol/L (5-15) Blood Urea Nitrogen 21 mg/dL (7-18) Creatinine 0.8 MG/DL (0.55-1.30) Estimat Glomerular Filtration Rate > 60 mL/min (>60) Glucose Level 104 MG/DL (74-106) Calcium Level 7.4 MG/DL (8.5-10.1) Phosphorus Level 2.6 MG/DL (2.5-4.9) Magnesium Level 2.1 MG/DL (1.8-2.4) Total Bilirubin 0.5 MG/DL (0.2-1.0) Aspartate Amino Transf (AST/SGOT) 64 U/L (15-37) Alanine Aminotransferase (ALT/SGPT) 51 U/L (12-78) Alkaline Phosphatase 93 U/L (46-116) Pro-B-Type Natriuretic Peptide 709 pg/mL (0-125) Total Protein 4.5 G/DL (6.4-8.2) Albumin 1.3 G/DL (3.4-5.0) Globulin 3.2 g/dL Albumin/Globulin Ratio 0.4 (1.0-2.7) Test 05/02/20 05:34 05/02/20 12:04 05/02/20 16:45 05/02/20 20:27 POC Whole Blood Glucose 96 MG/DL (74-106) 92 MG/DL (74-106) 113 MG/DL (74-106) 110 MG/DL (74-106) Test 05/03/20 03:30 05/03/20 05:10 05/03/20 10:25 05/03/20 11:33 White Blood Count 7.6 K/UL (4.8-10.8) Red Blood Count 3.30 M/UL (4.70-6.10) Hemoglobin 10.0 G/DL (14.2-18.0) Hematocrit 31.6 % (42.0-52.0) Mean Corpuscular Volume 96 FL (80-99) Mean Corpuscular Hemoglobin 30.3 PG (27.0-31.0) Mean Corpuscular Hemoglobin Concent 31.7 G/DL (32.0-36.0) Red Cell Distribution Width 13.8 % (11.6-14.8) Platelet Count 211 K/UL (150-450) Mean Platelet Volume 6.5 FL (6.5-10.1) Neutrophils (%) (Auto) 75.7 % (45.0-75.0) Lymphocytes (%) (Auto) 13.6 % (20.0-45.0) Monocytes (%) (Auto) 6.8 % (1.0-10.0) Eosinophils (%) (Auto) 3.4 % (0.0-3.0) Basophils (%) (Auto) 0.6 % (0.0-2.0) Sodium Level 144 MMOL/L (136-145) Potassium Level 4.1 MMOL/L (3.5-5.1) Chloride Level 111 MMOL/L (98-107) Carbon Dioxide Level 27 MMOL/L (21-32) Anion Gap 7 mmol/L (5-15) Blood Urea Nitrogen 21 mg/dL (7-18) Creatinine 0.8 MG/DL (0.55-1.30) Estimat Glomerular Filtration Rate > 60 mL/min (>60) Glucose Level 101 MG/DL (74-106) Calcium Level 7.6 MG/DL (8.5-10.1) Phosphorus Level 2.4 MG/DL (2.5-4.9) Magnesium Level 1.9 MG/DL (1.8-2.4) Total Bilirubin 0.4 MG/DL (0.2-1.0) Aspartate Amino Transf (AST/SGOT) 60 U/L (15-37) Alanine Aminotransferase (ALT/SGPT) 44 U/L (12-78) Alkaline Phosphatase 97 U/L (46-116) Total Protein 4.7 G/DL (6.4-8.2) Albumin 1.4 G/DL (3.4-5.0) Globulin 3.3 g/dL Albumin/Globulin Ratio 0.4 (1.0-2.7) POC Whole Blood Glucose 124 MG/DL (74-106) 109 MG/DL (74-106) Arterial Blood pH 7.457 (7.350-7.450) Arterial Blood Partial Pressure CO2 32.0 mmHg (35.0-45.0) Arterial Blood Partial Pressure O2 131.2 mmHg (75.0-100.0) Arterial Blood HCO3 22.1 mmol/L (22.0-26.0) Arterial Blood Oxygen Saturation 98.6 % (95-100) Arterial Blood Base Excess -1.2 (-2-2) Pepe Test Positive Test 05/03/20 17:09 05/03/20 20:19 05/04/20 03:30 05/04/20 05:01 POC Whole Blood Glucose 118 MG/DL (74-106) 126 MG/DL (74-106) White Blood Count 8.2 K/UL (4.8-10.8) Red Blood Count 3.16 M/UL (4.70-6.10) Hemoglobin 9.7 G/DL (14.2-18.0) Hematocrit 30.1 % (42.0-52.0) Mean Corpuscular Volume 95 FL (80-99) Mean Corpuscular Hemoglobin 30.8 PG (27.0-31.0) Mean Corpuscular Hemoglobin Concent 32.3 G/DL (32.0-36.0) Red Cell Distribution Width 13.9 % (11.6-14.8) Platelet Count 228 K/UL (150-450) Mean Platelet Volume 6.5 FL (6.5-10.1) Neutrophils (%) (Auto) 74.7 % (45.0-75.0) Lymphocytes (%) (Auto) 15.1 % (20.0-45.0) Monocytes (%) (Auto) 5.9 % (1.0-10.0) Eosinophils (%) (Auto) 3.9 % (0.0-3.0) Basophils (%) (Auto) 0.5 % (0.0-2.0) Sodium Level 142 MMOL/L (136-145) Potassium Level 4.5 MMOL/L (3.5-5.1) Chloride Level 111 MMOL/L (98-107) Carbon Dioxide Level 26 MMOL/L (21-32) Anion Gap 5 mmol/L (5-15) Blood Urea Nitrogen 21 mg/dL (7-18) Creatinine 0.7 MG/DL (0.55-1.30) Estimat Glomerular Filtration Rate > 60 mL/min (>60) Glucose Level 119 MG/DL (74-106) Calcium Level 7.5 MG/DL (8.5-10.1) Height (Feet): 6 Height (Inches): 0.00 Weight (Pounds): 148 Sree Dubon MD May 04, 2020 06:45
--- NOTE | 2020-05-04 07:07 | NUR ---
NURSE HAND-OFF REPORT: Important Events on Shift: Suctioned thick secretions,Keep on left chest side elevated. On venturi mask- o2 sat-100% Patient Status: Stable Diet: Vital AF 1.2 @40 Pending Orders: None Pending Results/Labs:None Pending MD notification: None Latest Vital Signs: Temperature 97.9 , Pulse 83 , B/P 124 /68 , Respiratory Rate 21 , O2 SAT 100 , Venturi Mask, O2 Flow Rate 10.0 . Vital Sign Comment: WNL EKG Rhythm: Sinus Rhythm Rhythm change?: Y Notified?: N -Dr. Devonte SAAVEDRA Response: No New Orders Received Latest Andersen Fall Score: 70 Fall Risk: High Risk Safety Measures: Call light Within Reach, Bed Alarm Zone 2, Side Rails Side Rails x3, Bed position Low and Locked. Fall Precautions: Yellow Socks Yellow Gown Door Sign Patient Fall Education Report given to [CRUZ Segura].
--- NOTE | 2020-05-04 07:17 | Infectious Diseases Prog Note ---
Assessment/Plan 80yo M with: Sepsis UTI -u/a wbc 50-60, nit neg, leuk +1; ucx Neg Gram positive bacteremia- m/l contaminant -04/24 sp cx 1/2 S. epi; 04/26 Bcx NTD Fever; SP No leukocytosis -04/26 influenza screen neg CXR: Borderline cardiomegaly. No acute process -04/24 CXR: No acute cardiopulmonary disease. covid rapid PCR neg Acute hypoxic resp failure- SP NRB>Bipap> VM . BiPAP B/l DVT and PE -CTA chest: Positive for bilateral pulmonary emboli Equivocal evidence of right heart strain; RV /LV ratio around 0.5 but is somewhat difficult to assess due to ventricular muscle hypertrophy. Left basilar compressive atelectasis, pleural fluid, and possibly some consolidation. Trace right pleural fluid. Subtle mosaic perfusion pattern, nonspecific but probably represents very mild pulmonary edema. Cardiomegaly. Nasogastric tube -V. duplex: : On the right, occlusive thrombus is seen within the downstream common femoral vein, the femoral vein, popliteal vein as well as within multiple calf veins. On the left, occlusive thrombus is seen within the femoral vein and popliteal vein the common femoral vein and calf veins are patent. COPD DM2 HTN schizophrenia malnutrition CVA w/ left spastic hemiparesis vascular dementia schizoaffective-bipolar type SNF resident (Eve[facility] peterson) Plan: Cont to monitor off abx 05/01 SP cefepime #8 04/30 SP vanco IV #6 -f/u cx -Monitor CBC/CMP, temperatures -aspiration precautions D/w RN Thank you for consulting [facility]. Will continue to follow along with you. Subjective Allergies: Coded Allergies: No Known Allergies (Unverified , 06/11/17) AF Off abx WBC 8 NAD lethargic on venti mask Objective Last 24 Hour Vital Signs Date Time Temp Pulse Resp B/P (MAP) Pulse Ox O2 Delivery O2 Flow Rate FiO2 05/04/20 04:00 97.9 83 21 124/68 (86) 100 05/04/20 04:00 79 05/04/20 04:00 10.0 45 05/04/20 04:00 Venturi Mask 05/04/20 00:21 75 05/04/20 00:00 10.0 45 05/04/20 00:00 Venturi Mask 05/04/20 00:00 98.1 71 22 117/59 (78) 98 05/03/20 20:00 Venturi Mask 05/03/20 20:00 96.3 66 21 136/70 (92) 97 05/03/20 20:00 10.0 45 05/03/20 20:00 75 05/03/20 17:12 79 139/55 05/03/20 16:35 96 Venturi Mask 10.0 45 05/03/20 16:00 98.1 72 17 139/55 (83) 100 05/03/20 16:00 Bi-pap 05/03/20 16:00 10.0 45 05/03/20 16:00 79 05/03/20 13:29 71 22 97 45 05/03/20 13:00 45 05/03/20 12:00 Bi-pap 05/03/20 12:00 97.7 67 16 133/69 (90) 100 05/03/20 12:00 60 05/03/20 12:00 69 05/03/20 11:43 68 22 100 60 05/03/20 09:35 67 24 100 60 05/03/20 09:14 82 128/71 05/03/20 08:01 67 21 99 60 05/03/20 08:01 99 Bi-Pap 60 05/03/20 08:00 Bi-pap 05/03/20 08:00 78 05/03/20 08:00 60 05/03/20 08:00 98.2 82 18 128/71 (90) 99 Height (Feet): 6 Height (Inches): 0.00 Weight (Pounds): 148 Gen: NAD in bed HEENT: NCAT on Venti mask CV: RRR Pulm: CTAB Abd: Soft, NTND Ext: No c/c/e Neuro: Sleeping Laboratory Tests Test 05/03/20 10:25 05/03/20 11:33 05/03/20 17:09 05/03/20 20:19 Arterial Blood pH 7.457 (7.350-7.450) Arterial Blood Partial Pressure CO2 32.0 mmHg (35.0-45.0) L Arterial Blood Partial Pressure O2 131.2 mmHg (75.0-100.0) H Arterial Blood HCO3 22.1 mmol/L (22.0-26.0) Arterial Blood Oxygen Saturation 98.6 % (95-100) Arterial Blood Base Excess -1.2 (-2-2) Pepe Test Positive POC Whole Blood Glucose 109 MG/DL (74-106) H Pending 118 MG/DL (74-106) H Test 05/04/20 03:30 05/04/20 05:01 White Blood Count 8.2 K/UL (4.8-10.8) Red Blood Count 3.16 M/UL (4.70-6.10) L Hemoglobin 9.7 G/DL (14.2-18.0) L Hematocrit 30.1 % (42.0-52.0) L Mean Corpuscular Volume 95 FL (80-99) Mean Corpuscular Hemoglobin 30.8 PG (27.0-31.0) Mean Corpuscular Hemoglobin Concent 32.3 G/DL (32.0-36.0) Red Cell Distribution Width 13.9 % (11.6-14.8) Platelet Count 228 K/UL (150-450) Mean Platelet Volume 6.5 FL (6.5-10.1) Neutrophils (%) (Auto) 74.7 % (45.0-75.0) Lymphocytes (%) (Auto) 15.1 % (20.0-45.0) L Monocytes (%) (Auto) 5.9 % (1.0-10.0) Eosinophils (%) (Auto) 3.9 % (0.0-3.0) H Basophils (%) (Auto) 0.5 % (0.0-2.0) Sodium Level 142 MMOL/L (136-145) Potassium Level 4.5 MMOL/L (3.5-5.1) Chloride Level 111 MMOL/L (98-107) H Carbon Dioxide Level 26 MMOL/L (21-32) Anion Gap 5 mmol/L (5-15) Blood Urea Nitrogen 21 mg/dL (7-18) H Creatinine 0.7 MG/DL (0.55-1.30) Estimat Glomerular Filtration Rate > 60 mL/min (>60) Glucose Level 119 MG/DL (74-106) H Calcium Level 7.5 MG/DL (8.5-10.1) L POC Whole Blood Glucose 126 MG/DL (74-106) H Current Medications Medications (Trade) Dose Ordered Sig/Lopez Route PRN Reason Start Time Stop Time Status Last Admin Dose Admin Acetaminophen (Tylenol) 650 mg Q4H PRN ORAL fever 04/25/20 00:00 05/25/20 00:00 Apixaban (Eliquis) 5 mg BID ORAL 05/06/20 18:00 08/04/20 17:59 Apixaban (Eliquis) 10 mg BID ORAL 04/29/20 18:00 05/06/20 09:01 05/03/20 17:11 Chlorhexidine Gluconate (Arpita-Hex 2%) 1 applic DAILY@1999 TOPIC 04/29/20 20:00 07/28/20 19:59 05/03/20 20:20 Dextrose (Dextrose 50%) 25 ml Q30M PRN IV Hypoglycemia 04/25/20 00:00 07/24/20 00:00 Dextrose (Dextrose 50%) 50 ml Q30M PRN IV Hypoglycemia 04/25/20 00:00 07/24/20 00:00 Folic Acid (Folate) 1 mg DAILY ORAL 04/29/20 09:00 05/29/20 08:59 05/03/20 09:14 Insulin Aspart (NovoLOG) BEFORE MEALS AND HS SUBQ 04/25/20 06:30 07/24/20 06:29 04/28/20 06:22 Lamotrigine (LaMICtal) 25 mg DAILY ORAL 04/25/20 09:00 05/25/20 08:59 05/03/20 09:13 Memantine (Namenda) 5 mg TWICE A DAY ORAL 04/25/20 09:00 05/25/20 08:59 05/03/20 17:11 Metoprolol Tartrate (Lopressor) 50 mg BID GT 05/01/20 20:00 07/30/20 19:59 05/03/20 17:12 Olanzapine (ZyPREXA) 5 mg DAILY ORAL 04/25/20 09:00 06/09/20 08:59 05/03/20 09:13 Ondansetron HCl (Zofran) 4 mg Q6H PRN IVP Nausea & Vomiting 04/25/20 00:00 05/25/20 00:00 Polyethylene Glycol (Miralax) 17 gm DAILYPRN PRN ORAL Constipation 04/25/20 00:00 05/25/20 00:00 Potassium Chloride (K-Dur) 20 meq TWICE A DAY GT 05/01/20 12:15 07/30/20 12:14 05/03/20 17:11 Quetiapine Fumarate (SEROqueL) 50 mg Q12HR ORAL 04/27/20 11:30 06/11/20 11:29 05/03/20 20:20 Raina Loving M.D. May 04, 2020 07:17
[2020-05-04 08:00] VITALS: BP 127/70
--- NOTE | 2020-05-04 08:21 | NUR ---
NURSE NOTES:Handoff received from CRUZ Muir. Patient received sleeping in bed, no acute signs of distress noted. Patient is on Venturi mask 10 Liters 02 and FI02 of 45% with saturation of 93%. ekg monitor shows HR of 82. Patient has NG tube running Vital AF 1.2@ 40Ml/HR continuos. Patient has Contreras cath patent and draining to gravity. Skin issues noted, Iv sites are clean dry and intact, saline locked. patient is on contact, aspiration, fall and seizure precautions with side tails padded and bed in the low and locked position with call light on the bed. Will follow plan of care. RN endorsed to keep left chest elevated, per Dr Downey order.
--- NOTE | 2020-05-04 09:45 | NUR ---
NURSE NOTES:NG tube flushed with air and auscultated, to verify NG tube is still in place before administering medications.
[2020-05-04] MEDS: Memantine 10mg tab ORAL SCH ×2 (10:05→18:48)
[2020-05-04] MEDS: Metoprolol Tartrate 50mg tab GT SCH ×2 (10:05→18:48)
[2020-05-04] MEDS: Eliquis 5mg tablet ORAL SCH ×2 (10:06→18:48)
[2020-05-04 11:37] VITALS: BP 103/51
--- NOTE | 2020-05-04 11:55 | Pulmonolgy Critical Care Note ---
Critical Care - Asmt/Plan Problems: (1) Acute respiratory failure (2) Acute massive pulmonary embolism (3) Acute deep vein thrombosis (DVT) (4) ATN (acute tubular necrosis) (5) Acute encephalopathy (6) UTI (urinary tract infection) (7) Protein-calorie malnutrition, severe (8) Diabetes (9) HTN (hypertension) (10) CVA (cerebral vascular accident) Respiratory: monitor respiratory rate, adjust FIO2, CXR Cardiac: continue to monitor HR/BP Renal: check electrolytes Infectious Disease: check cultures Gastrointestinal: continue feedings/current rate Endocrine: monitor blood sugar, continue sliding scale insulin Hematologic: monitor H/H, transfuse if hgb<8.5 Neurologic: keep patient comfortable Affect: PRN ativan Prophylaxis: Protonix, Heparin Time Spent (Minutes): 40 Notes Reviewed: manager registration, cardio, 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 with: nurses, consultants, case packer and sealermanager english - Objective Last 24 Hour Vital Signs Date Time Temp Pulse Resp B/P (MAP) Pulse Ox O2 Delivery O2 Flow Rate FiO2 05/04/20 11:37 98.2 56 24 103/51 (68) 98 05/04/20 10:05 83 127/70 05/04/20 08:00 97.2 83 24 127/70 (89) 100 05/04/20 08:00 10.0 45 05/04/20 08:00 Venturi Mask 05/04/20 08:00 80 05/04/20 07:05 97 Venturi Mask 10.0 45 05/04/20 04:00 97.9 83 21 124/68 (86) 100 05/04/20 04:00 79 05/04/20 04:00 10.0 45 05/04/20 04:00 Venturi Mask 05/04/20 00:21 75 05/04/20 00:00 10.0 45 05/04/20 00:00 Venturi Mask 05/04/20 00:00 98.1 71 22 117/59 (78) 98 05/03/20 20:00 Venturi Mask 05/03/20 20:00 96.3 66 21 136/70 (92) 97 05/03/20 20:00 10.0 45 05/03/20 20:00 75 05/03/20 17:12 79 139/55 05/03/20 16:35 96 Venturi Mask 10.0 45 05/03/20 16:00 98.1 72 17 139/55 (83) 100 05/03/20 16:00 Bi-pap 05/03/20 16:00 10.0 45 05/03/20 16:00 79 05/03/20 13:29 71 22 97 45 05/03/20 13:00 45 05/03/20 12:00 Bi-pap 05/03/20 12:00 97.7 67 16 133/69 (90) 100 05/03/20 12:00 60 05/03/20 12:00 69 Status: awake Condition: critical HEENT: atraumatic, normocephalic Lungs: rales, rhonchi Heart: HR/BP stable Abdomen: soft, non-tender Extremities: no C/C/E Accucheck: 118 Critical Care - Subjective ROS Limited/Unobtainable: Yes Condition: critical EKG Rhythm: Sinus Rhythm FI02: 45 Vent Support Breath Rate: 18 Vent Support Mode: BiLevel Sputum Amount: None Tube Feeding Amount: 40 I&O: Intake and Output 05/03/20 05/04/20 19:00 07:00 Intake Total 811.664 ml 590 ml Output Total 800 ml 1000 ml Balance 11.664 ml -410 ml Free Water 150 ml 150 ml IV Total 281.664 ml Tube Feeding 380 ml 440 ml Output Urine Total 800 ml 1000 ml # Bowel Movements 1 Labs: Laboratory Tests Test 05/03/20 17:09 05/03/20 20:19 05/04/20 03:30 05/04/20 05:01 POC Whole Blood Glucose Pending 118 MG/DL (74-106) H 126 MG/DL (74-106) H White Blood Count 8.2 K/UL (4.8-10.8) Red Blood Count 3.16 M/UL (4.70-6.10) L Hemoglobin 9.7 G/DL (14.2-18.0) L Hematocrit 30.1 % (42.0-52.0) L Mean Corpuscular Volume 95 FL (80-99) Mean Corpuscular Hemoglobin 30.8 PG (27.0-31.0) Mean Corpuscular Hemoglobin Concent 32.3 G/DL (32.0-36.0) Red Cell Distribution Width 13.9 % (11.6-14.8) Platelet Count 228 K/UL (150-450) Mean Platelet Volume 6.5 FL (6.5-10.1) Neutrophils (%) (Auto) 74.7 % (45.0-75.0) Lymphocytes (%) (Auto) 15.1 % (20.0-45.0) L Monocytes (%) (Auto) 5.9 % (1.0-10.0) Eosinophils (%) (Auto) 3.9 % (0.0-3.0) H Basophils (%) (Auto) 0.5 % (0.0-2.0) Sodium Level 142 MMOL/L (136-145) Potassium Level 4.5 MMOL/L (3.5-5.1) Chloride Level 111 MMOL/L (98-107) H Carbon Dioxide Level 26 MMOL/L (21-32) Anion Gap 5 mmol/L (5-15) Blood Urea Nitrogen 21 mg/dL (7-18) H Creatinine 0.7 MG/DL (0.55-1.30) Estimat Glomerular Filtration Rate > 60 mL/min (>60) Glucose Level 119 MG/DL (74-106) H Calcium Level 7.5 MG/DL (8.5-10.1) L Test 05/04/20 11:40 POC Whole Blood Glucose 118 MG/DL (74-106) H Luzmaria Downey MD May 04, 2020 11:55
--- NOTE | 2020-05-04 12:39 | NUR ---
RD ASSESSMENT & RECOMMENDATIONS SEE CARE ACTIVITY FOR COMPLETE ASSESSMENT DAILY ESTIMATED NEEDS: Needs based on DM, Cardiac (67.3kg) 25-35 kcals/kg 5978-0900 total kcals 1.25-1.5 g protein/kg 84-101 g total protein 25-30 mL/kg 9895-9399 total fluid mLs NUTRITION DIAGNOSIS: Difficulty chewing/swallowing r/t dysphagia s/p CVA, respiratory status as evidenced by pt NPO, now on NGT feeds, off BIPAP, on venturi mask. . CURRENT DIET: NPO CURRENT TF: Vital 1.2 @ 40ml/hr x 24 hrs PO DIET RECOMMENDATIONS: MANAGER FREELANCE eval prior to diet initiation ENTERAL NUTRITION RECOMMENDATIONS: Glucerna 1.2 to goal of 60ml/hr x24 hrs to provide 1440ml, 1728 kcal, 86g pro, 1158ml free H2O - Elemental TF of Vital AF not indicated. - Rec TF change to Glucerna 1.2, start @30ml/hr, advance as tolerated 10ml/hr q4-6 hrs to goal - Flush per , HOB over 30 degrees. ADDITIONAL RECOMMENDATIONS: 1) Maintain calibrated bed scale wts 2) Skin integrity: Add LLOYD BID + Vit C 250mg qdaily 3) Replete lytes as needed 4) F/up w/ MANAGER FREELANCE eval- now on NGT feeds 5) Monitor respiratory status: now off BIPAP, on venturi mask .
--- NOTE | 2020-05-04 12:50 | General Progress Note ---
Subjective ROS Limited/Unobtainable: No Allergies: Coded Allergies: No Known Allergies (Unverified , 06/11/17) Objective Last 24 Hour Vital Signs Date Time Temp Pulse Resp B/P (MAP) Pulse Ox O2 Delivery O2 Flow Rate FiO2 05/04/20 12:00 67 05/04/20 11:51 10.0 45 05/04/20 11:49 Venturi Mask 05/04/20 11:37 98.2 56 24 103/51 (68) 98 05/04/20 10:05 83 127/70 05/04/20 08:00 97.2 83 24 127/70 (89) 100 05/04/20 08:00 10.0 45 05/04/20 08:00 Venturi Mask 05/04/20 08:00 80 05/04/20 07:05 97 Venturi Mask 10.0 45 05/04/20 04:00 97.9 83 21 124/68 (86) 100 05/04/20 04:00 79 05/04/20 04:00 10.0 45 05/04/20 04:00 Venturi Mask 05/04/20 00:21 75 05/04/20 00:00 10.0 45 05/04/20 00:00 Venturi Mask 05/04/20 00:00 98.1 71 22 117/59 (78) 98 05/03/20 20:00 Venturi Mask 05/03/20 20:00 96.3 66 21 136/70 (92) 97 05/03/20 20:00 10.0 45 05/03/20 20:00 75 05/03/20 17:12 79 139/55 05/03/20 16:35 96 Venturi Mask 10.0 45 05/03/20 16:00 98.1 72 17 139/55 (83) 100 05/03/20 16:00 Bi-pap 05/03/20 16:00 10.0 45 05/03/20 16:00 79 05/03/20 13:29 71 22 97 45 05/03/20 13:00 45 Intake and Output 05/03/20 05/04/20 19:00 07:00 Intake Total 811.664 ml 590 ml Output Total 800 ml 1000 ml Balance 11.664 ml -410 ml Free Water 150 ml 150 ml IV Total 281.664 ml Tube Feeding 380 ml 440 ml Output Urine Total 800 ml 1000 ml # Bowel Movements 1 Laboratory Tests 05/03/20 17:09: POC Whole Blood Glucose [Pending] 05/03/20 20:19: POC Whole Blood Glucose 118H 05/04/20 03:30: White Blood Count 8.2, Red Blood Count 3.16L, Hemoglobin 9.7L, Hematocrit 30.1L, Mean Corpuscular Volume 95, Mean Corpuscular Hemoglobin 30.8, Mean Corpuscular Hemoglobin Concent 32.3, Red Cell Distribution Width 13.9, Platelet Count 228, Mean Platelet Volume 6.5, Neutrophils (%) (Auto) 74.7, Lymphocytes (%) (Auto) 15.1L, Monocytes (%) (Auto) 5.9, Eosinophils (%) (Auto) 3.9H, Basophils (%) (Auto) 0.5, Sodium Level 142, Potassium Level 4.5, Chloride Level 111H, Carbon Dioxide Level 26, Anion Gap 5, Blood Urea Nitrogen 21H, Creatinine 0.7, Estimat Glomerular Filtration Rate > 60, Glucose Level 119H, Calcium Level 7.5L 05/04/20 05:01: POC Whole Blood Glucose 126H 05/04/20 11:40: POC Whole Blood Glucose 118H Height (Feet): 6 Height (Inches): 0.00 Weight (Pounds): 148 General Appearance: lethargic EENT: normal ENT inspection Neck: supple Cardiovascular: normal rate Respiratory/Chest: decreased breath sounds Abdomen: normal bowel sounds, non tender, soft Extremities: non-tender Assessment/Plan Status: unchanged Assessment/Plan: 1. COPD. 2. Diabetes. 3. Schizophrenia. 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 5. Dementia. 6. Anemia 7. Dysphagia 8. Folate def NGTF on low dose given patient on BIPAP folate not stable for PEG on BIPAP neg stool ob>>> neg will Nathan Kemp MD May 04, 2020 12:50
--- NOTE | 2020-05-04 13:10 | NUR ---
NURSE NOTES:NG tube feeding formula changed per MD order, patient now receiving Glucerna 1.2@ 50ML/HR tubing also changed.
--- NOTE | 2020-05-04 13:21 | General Progress Note ---
Subjective Constitutional: Reports: weakness Respiratory: Reports: shortness of breath Allergies: Coded Allergies: No Known Allergies (Unverified , 06/11/17) All Systems: reviewed and negative except above Subjective bipap sleepy in bed Objective Last 24 Hour Vital Signs Date Time Temp Pulse Resp B/P (MAP) Pulse Ox O2 Delivery O2 Flow Rate FiO2 05/04/20 12:00 67 05/04/20 11:51 10.0 45 05/04/20 11:49 Venturi Mask 05/04/20 11:37 98.2 56 24 103/51 (68) 98 05/04/20 10:05 83 127/70 05/04/20 08:00 97.2 83 24 127/70 (89) 100 05/04/20 08:00 10.0 45 05/04/20 08:00 Venturi Mask 05/04/20 08:00 80 05/04/20 07:05 97 Venturi Mask 10.0 45 05/04/20 04:00 97.9 83 21 124/68 (86) 100 05/04/20 04:00 79 05/04/20 04:00 10.0 45 05/04/20 04:00 Venturi Mask 05/04/20 00:21 75 05/04/20 00:00 10.0 45 05/04/20 00:00 Venturi Mask 05/04/20 00:00 98.1 71 22 117/59 (78) 98 05/03/20 20:00 Venturi Mask 05/03/20 20:00 96.3 66 21 136/70 (92) 97 05/03/20 20:00 10.0 45 05/03/20 20:00 75 05/03/20 17:12 79 139/55 05/03/20 16:35 96 Venturi Mask 10.0 45 05/03/20 16:00 98.1 72 17 139/55 (83) 100 05/03/20 16:00 Bi-pap 05/03/20 16:00 10.0 45 05/03/20 16:00 79 05/03/20 13:29 71 22 97 45 Intake and Output 05/03/20 05/04/20 19:00 07:00 Intake Total 811.664 ml 590 ml Output Total 800 ml 1000 ml Balance 11.664 ml -410 ml Free Water 150 ml 150 ml IV Total 281.664 ml Tube Feeding 380 ml 440 ml Output Urine Total 800 ml 1000 ml # Bowel Movements 1 Laboratory Tests 05/03/20 17:09: POC Whole Blood Glucose [Pending] 05/03/20 20:19: POC Whole Blood Glucose 118H 05/04/20 03:30: White Blood Count 8.2, Red Blood Count 3.16L, Hemoglobin 9.7L, Hematocrit 30.1L, Mean Corpuscular Volume 95, Mean Corpuscular Hemoglobin 30.8, Mean Corpuscular Hemoglobin Concent 32.3, Red Cell Distribution Width 13.9, Platelet Count 228, Mean Platelet Volume 6.5, Neutrophils (%) (Auto) 74.7, Lymphocytes (%) (Auto) 15.1L, Monocytes (%) (Auto) 5.9, Eosinophils (%) (Auto) 3.9H, Basophils (%) (Auto) 0.5, Sodium Level 142, Potassium Level 4.5, Chloride Level 111H, Carbon Dioxide Level 26, Anion Gap 5, Blood Urea Nitrogen 21H, Creatinine 0.7, Estimat Glomerular Filtration Rate > 60, Glucose Level 119H, Calcium Level 7.5L 05/04/20 05:01: POC Whole Blood Glucose 126H 05/04/20 11:40: POC Whole Blood Glucose 118H Height (Feet): 6 Height (Inches): 0.00 Weight (Pounds): 148 General Appearance: lethargic EENT: normal ENT inspection Neck: normal alignment Cardiovascular: normal peripheral pulses, normal rate, regular rhythm Respiratory/Chest: chest wall non-tender, lungs clear, normal breath sounds Abdomen: normal bowel sounds, non tender, soft Extremities: normal inspection Edema: no edema noted Arm (L), no edema noted Arm (R), no edema noted Leg (L), no edema noted Leg (R), no edema noted Pedal (L), no edema noted Pedal (R), no edema noted Generalized Neurologic: motor weakness Skin: normal pigmentation, warm/dry Assessment/Plan Problem List: (1) UTI (urinary tract infection) ICD Codes: N39.0 - Urinary tract infection, site not specified SNOMED: 12607363 (2) CVA (cerebral vascular accident) ICD Codes: I63.9 - Cerebral infarction, unspecified SNOMED: 937114855 (3) KORY (acute kidney injury) ICD Codes: N17.9 - Acute kidney failure, unspecified SNOMED: 0599576, 54812307 (4) HTN (hypertension) ICD Codes: I10 - Essential (primary) hypertension SNOMED: 35288339 (5) Diabetes ICD Codes: E11.9 - Type 2 diabetes mellitus without complications SNOMED: 83409428 (6) Dehydration ICD Codes: E86.0 - Dehydration SNOMED: 45420683 (7) Hypernatremia ICD Codes: E87.0 - Hyperosmolality and hypernatremia SNOMED: 79863403 (8) Acute respiratory failure ICD Codes: J96.00 - Acute respiratory failure, unspecified whether with hypoxia or hypercapnia SNOMED: 96128567 Status: unchanged Assessment/Plan: o2 pulm tx abx pt diet cbc bmp am aru and ltach German Villanueva DO May 04, 2020 13:21
--- NOTE | 2020-05-04 13:46 | Psychiatry Consultation ---
Psychiatry Consultation Psychiatry Consultation Chief Complaint: Dyspnea/Respdistress History of Present Illness: 80-year-old male patient with respiratory failure altered mental status conf usion and overall decline in cognition below his baseline with mood lability as well as attending physician is requested daily psychiatric consultation continue to be followed by psychiatry because hospital course with the goal of trying to improve his cognition and try to prevent any further decline in his cognition Mental status examination: 80-year-old male appears disheveled at irritable agitated affect guarded restricted intellect poor mood depressed anxious motor activity psychomotor agitation judgment poor orientation x2 speech is low volume slurred thought process disorganized logical insight judgment is poor Allergies: Coded Allergies: No Known Allergies (Unverified , 06/11/17) Medication History Scheduled Amino Acids/Protein Hydrolys (Pro-Stat Liquid), 30 ML ORAL DAILY, (Reported) Aspirin (Aspirin EC), 81 MG ORAL DAILY, (Reported) Docusate Sodium* (Colace*), 100 MG ORAL DAILY, (Reported) Folic Acid* (Folic Acid*), 1 MG ORAL DAILY, (Reported) Heparin Sod (Porcine) (Heparin Sodium*), 5,000 UNITS SUBQ DAILY, (Reported) Lamotrigine* (Lamictal*), 25 MG ORAL DAILY, (Reported) Lisinopril (Lisinopril*), 20 MG ORAL BID, (Reported) Memantine Hcl* (Namenda*), 5 MG ORAL TWICE A DAY, (Reported) Multivitamin With Minerals (Multivitamins With Minerals*), 1 TAB ORAL DAILY, (Reported) Olanzapine* (Zyprexa*), 5 MG ORAL DAILY, (Reported) Sennosides (Senna), 2 TAB PO BEDTIME, (Reported) Scheduled PRN Acetaminophen* (Acetaminophen 325MG Tablet*), 650 MG ORAL Q4H PRN for Fever/Headache/Mild Pain, (Reported) Bisacodyl (Dulcolax), 10 MG RC for Constipation, (Reported) Hydralazine Hcl* (Hydralazine Hcl*), 10 MG ORAL Q4HR PRN for SBP > 160 , (Reported) Ipratropium/Albuterol Sulfate (DuoNeb 0.5-3(2.5)mg/3ml), 1 UNIT HHN EVERY 6 HOURS PRN for Shortness of Breath, (Reported) Magnesium Hydroxide* (Milk Of Magnesia*), 30 ML ORAL EVERY 6 HOURS PRN for Con stipation, (Reported) Na Phos,M-B/Na Phos,Di-Ba* (Fleet Enema*), 133 ML RECTAL DAILY PRN for Con stipation, (Reported) Nitroglycerin 0.4MG table* (Nitroglycerin*), 0.4 MG SL .Q5MIN X 3 DOSES PRN for CHEST PAIN, (Reported) Miscellaneous Medications Insulin Lispro (Humalog), 0 SUBQ, (Reported) Discontinued Medications Ascorbic Acid* (Vitamin C*), 500 MG ORAL DAILY, (Reported) Discontinued Reason: Pt stopped taking med Benazepril Hcl* (Lotensin*), 20 MG ORAL BID, (Reported) Discontinued Reason: Pt stopped taking med Calcium Carbonate/Vitamin D3 (Calcium 500 + Vit D 200 Tablet), 1 EACH PO BID, (Reported) Discontinued Reason: Pt stopped taking med Cranberry Extract (Cranberry), 425 MG PO, (Reported) Discontinued Reason: Pt stopped taking med Escitalopram Oxalate* (Lexapro*), 10 MG ORAL DAILY, (Reported) Discontinued Reason: Pt stopped taking med Folic Acid/Vitamin B Comp W-C (Sarah-Ruben Tablet), 0.8 MG PO DAILY, (Reported) Discontinued Reason: Pt stopped taking med Insulin Aspart* (Novolog*), 0 SUBQ BEFORE MEALS AND HS, (Reported) Discontinued Reason: Pt stopped taking med Lamotrigine* (Lamictal*), 25 MG ORAL DAILY, (Reported) Discontinued Reason: Pt stopped taking med Levofloxacin* (Levaquin*), 750 MG ORAL DAILY, (Reported) Discontinued Reason: Pt stopped taking med Lisinopril* (Lisinopril*), 20 MG ORAL DAILY, (Reported) Discontinued Reason: Prescription changed Lorazepam* (Ativan*), 0.5 MG ORAL EVERY 6 HOURS, (Reported) Discontinued Reason: Pt stopped taking med Memantine Hcl* (Namenda*), 5 MG ORAL DAILY, (Reported) Discontinued Reason: Pt stopped taking med Olanzapine* (Zyprexa*), 5 MG ORAL HS, (Reported) Discontinued Reason: Pt stopped taking med Temazepam* (Restoril*), 15 MG ORAL BEDTIME PRN for Insomnia, (Reported) Discontinued Reason: Pt stopped taking med Vitamin B Cmplx/Vit C/Folic AC (Nephro-Ruben Tablet), 1 TAB ORAL DAILY, (Reported) Discontinued Reason: Pt stopped taking med Objective Data Height (Feet): 6 Height (Inches): 0.00 Weight (Pounds): 148 Assessment/Plan Assessment/Plan: Continue the patient on Lamictal, Zyprexa, Ativan and Namenda. 20min of insight oriented psychotherapy to help him recognize his psychical and cogintive def icits so that he has less depression and better impulse control. Diagnosis [place]: Schizoaffective bipolar type Dakota Monroe MD May 04, 2020 13:46
[2020-05-04 16:00] VITALS: BP 120/52
--- NOTE | 2020-05-04 16:25 | Nephrology Progress Note ---
Assessment/Plan Problem List: (1) KORY (acute kidney injury) (2) Hypernatremia (3) Dehydration (4) Acute respiratory failure Assessment Patient presents with acute hypoxic respiratory failure requiring BiPAP Sepsis lactic acidosis KORY Dehydration, hypernatremia History of COPD Anemia Low BMI, malnutrition. BMI of 20.1 History of CVA History of diabetes mellitus Plan May 04: Labs reviewed. Renal parameters are stable. Continue per current management. May 03: Labs reviewed. Renal parameters stable. Phosphorus supplement IV given. May 02: Serum sodium up to 144. Stable from renal standpoint of view. Continue per consultants. May 01: Serum serum sodium 136. Will stop D5W IV fluid. 1 dose of Lasix IV. Potassium supplement. Continue to monitor electrolytes. Continue per consultants. April 30: Serum sodium 146. Low phosphorus replaced. Continue pulmonary support and per consultants. April 29: Serum sodium normalized. Electrolytes within normal limit. Remains on nonrebreather mask. Continue per consultants. April 28: Continue D5W. Abnormal electrolytes addressed. Continue per consultants. Remains full code. Remains on nonrebreather mask. April 27: Continue D5W. Continue pulmonary support. Monitor renal parameters and electrolytes. Continue per consultants. Patient full code. Remains on nonrebreathing mask. Contreras catheter IV D5W Monitor electrolytes and renal parameters Antibiotics Avoid nephrotoxic's 2D echocardiogram Per orders Subjective ROS Limited/Unobtainable: Yes Objective Objective Last 24 Hour Vital Signs Date Time Temp Pulse Resp B/P (MAP) Pulse Ox O2 Delivery O2 Flow Rate FiO2 05/04/20 15:24 10.0 45 05/04/20 12:00 67 05/04/20 11:51 10.0 45 05/04/20 11:49 Venturi Mask 05/04/20 11:37 98.2 56 24 103/51 (68) 98 05/04/20 10:05 83 127/70 05/04/20 08:00 97.2 83 24 127/70 (89) 100 05/04/20 08:00 10.0 45 05/04/20 08:00 Venturi Mask 05/04/20 08:00 80 05/04/20 07:05 97 Venturi Mask 10.0 45 05/04/20 04:00 97.9 83 21 124/68 (86) 100 05/04/20 04:00 79 05/04/20 04:00 10.0 45 05/04/20 04:00 Venturi Mask 05/04/20 00:21 75 05/04/20 00:00 10.0 45 05/04/20 00:00 Venturi Mask 05/04/20 00:00 98.1 71 22 117/59 (78) 98 05/03/20 20:00 Venturi Mask 05/03/20 20:00 96.3 66 21 136/70 (92) 97 05/03/20 20:00 10.0 45 05/03/20 20:00 75 05/03/20 17:12 79 139/55 05/03/20 16:35 96 Venturi Mask 10.0 45 Intake and Output 05/03/20 05/04/20 19:00 07:00 Intake Total 811.664 ml 590 ml Output Total 800 ml 1000 ml Balance 11.664 ml -410 ml Free Water 150 ml 150 ml IV Total 281.664 ml Tube Feeding 380 ml 440 ml Output Urine Total 800 ml 1000 ml # Bowel Movements 1 Current Medications Medications (Trade) Dose Ordered Sig/Lopez Route PRN Reason Start Time Stop Time Status Last Admin Dose Admin Acetaminophen (Tylenol) 650 mg Q4H PRN ORAL fever 04/25/20 00:00 05/25/20 00:00 Apixaban (Eliquis) 5 mg BID ORAL 05/06/20 18:00 08/04/20 17:59 Apixaban (Eliquis) 10 mg BID ORAL 04/29/20 18:00 05/06/20 09:01 05/04/20 10:06 Chlorhexidine Gluconate (Arpita-Hex 2%) 1 applic DAILY@1999 TOPIC 04/29/20 20:00 07/28/20 19:59 05/03/20 20:20 Dextrose (Dextrose 50%) 25 ml Q30M PRN IV Hypoglycemia 04/25/20 00:00 07/24/20 00:00 Dextrose (Dextrose 50%) 50 ml Q30M PRN IV Hypoglycemia 04/25/20 00:00 07/24/20 00:00 Folic Acid (Folate) 1 mg DAILY ORAL 04/29/20 09:00 05/29/20 08:59 05/04/20 10:05 Insulin Aspart (NovoLOG) BEFORE MEALS AND HS SUBQ 04/25/20 06:30 07/24/20 06:29 04/28/20 06:22 Lamotrigine (LaMICtal) 25 mg DAILY ORAL 04/25/20 09:00 05/25/20 08:59 05/04/20 10:05 Memantine (Namenda) 5 mg TWICE A DAY ORAL 04/25/20 09:00 05/25/20 08:59 05/04/20 10:05 Metoprolol Tartrate (Lopressor) 50 mg BID GT 05/01/20 20:00 07/30/20 19:59 05/04/20 10:05 Olanzapine (ZyPREXA) 5 mg DAILY ORAL 04/25/20 09:00 06/09/20 08:59 05/04/20 10:05 Ondansetron HCl (Zofran) 4 mg Q6H PRN IVP Nausea & Vomiting 04/25/20 00:00 05/25/20 00:00 Polyethylene Glycol (Miralax) 17 gm DAILYPRN PRN ORAL Constipation 04/25/20 00:00 05/25/20 00:00 Potassium Chloride (K-Dur) 20 meq TWICE A DAY GT 05/01/20 12:15 07/30/20 12:14 05/04/20 10:06 Quetiapine Fumarate (SEROqueL) 50 mg Q12HR ORAL 04/27/20 11:30 06/11/20 11:29 05/04/20 10:05 Laboratory Tests 05/03/20 17:09: POC Whole Blood Glucose [Pending] 05/03/20 20:19: POC Whole Blood Glucose 118H 05/04/20 03:30: White Blood Count 8.2, Red Blood Count 3.16L, Hemoglobin 9.7L, Hematocrit 30.1L, Mean Corpuscular Volume 95, Mean Corpuscular Hemoglobin 30.8, Mean Corpuscular Hemoglobin Concent 32.3, Red Cell Distribution Width 13.9, Platelet Count 228, Mean Platelet Volume 6.5, Neutrophils (%) (Auto) 74.7, Lymphocytes (%) (Auto) 15.1L, Monocytes (%) (Auto) 5.9, Eosinophils (%) (Auto) 3.9H, Basophils (%) (A uto) 0.5, Sodium Level 142, Potassium Level 4.5, Chloride Level 111H, Carbon Dioxide Level 26, Anion Gap 5, Blood Urea Nitrogen 21H, Creatinine 0.7, Estimat Glomerular Filtration Rate > 60, Glucose Level 119H, Calcium Level 7.5L 05/04/20 05:01: POC Whole Blood Glucose 126H 05/04/20 11:40: POC Whole Blood Glucose 118H Height (Feet): 6 Height (Inches): 0.00 Weight (Pounds): 148 General Appearance: no apparent distress EENT: other - On Venturi mask Cardiovascular: normal rate Respiratory/Chest: decreased breath sounds Abdomen: distended Maximino Castillo MD May 04, 2020 16:25
--- NOTE | 2020-05-04 19:15 | NUR ---
NURSE NOTES: Received report from CRUZ Segura. Pt is seen lying in bed in semi-bullock's position, left chest side elevated. On Venturi mask 45% on 10L. Tolerating well o2 sat- 97-100%. Still with thick sputum per AM shift suctioned secretions by RT. ELI picc line with patent and intact and Left hand with g20 still patent and intact. With NGT in Left nares auscultated and intact. No signs of apparent respiratory distress noted at this time. No facial grimace noted at this time. Bed in lowest position. Call light within reach. Continue to plan of care.
--- NOTE | 2020-05-04 19:25 | NUR ---
NURSE NOTES: Initial assessment done. SR in the data entry specialist. Episode of Bigeminy PVC's in 4 beats, in AM shift. Will Notify again Dr. Whitney. Pt is asymptomatic. Continue to plan of care.
--- NOTE | 2020-05-04 19:36 | NUR ---
NURSE HAND-OFF REPORT: Important Events on Shift:Diet changed to Glucerna 1.2 @50ML/HR Patient Status: Stable Diet: Glucerna 1.2@50ML/HR Pending Orders: Pending Results/Labs: Pending MD notification: Latest Vital Signs: Temperature 100.0 , Pulse 67 , B/P 120 /52 , Respiratory Rate 19 , O2 SAT 95 , Venturi Mask, O2 Flow Rate 10.0 . Vital Sign Comment: EKG Rhythm: Sinus Rhythm with episode of bigeminy Rhythm change?: N Notified?: N Response: Latest Andersen Fall Score: 70 Fall Risk: High Risk Safety Measures: Call light Within Reach, Bed Alarm Zone 2, Side Rails Side Rails x3, Bed position Low and Locked. Fall Precautions: Yellow Socks Yellow Gown Door Sign Patient Fall Education Report given to CRUZ Muir.
--- NOTE | 2020-05-04 19:47 | NUR ---
NURSE NOTES: Dr. Whitney made aware of episode of Bigeminy with PVC, awaiting for response. Continue to monitor closely.
--- NOTE | 2020-05-04 20:12 | NUR ---
NURSE NOTES: Spoke to Dr. worrell, Informed pt has previously episode of Bigeminy with PVC 4 beats in the morning at 1300. pt right now reading same rhythym at pvc monitor. Dr worrell aware. Magnesium level stat ordered. Waiting for labs to draw blood. PICC access not drawing blood but flushing.
[2020-05-04] MEDS: Dyna-Hex 2% Top Sol 2oz TOPIC SCH (20:14)
[2020-05-04 20:52] VITALS: BP 133/62
--- NOTE | 2020-05-04 21:12 | NUR ---
NURSE NOTES: Magnesium resulted 2.2, Dr. worrell made aware.
--- NOTE | 2020-05-04 21:43 | NUR ---
NURSE NOTES: No new orders made from Dr. Whitney.
[2020-05-05] VITALS: BP 120/53
--- NOTE | 2020-05-05 00:34 | NUR ---
NURSE NOTES: Sponge bath given. Pt was cleaned. pt was stable, NGT in Left nares still patent. No signs of apparent respiratory distress. No any pain noted. VS stable. o2 sat at 100%. Bed in lowest position. Call light within reach. Continue to plan of care.
--- NOTE | 2020-05-05 03:35 | NUR ---
NURSE NOTES: Pt is not in apparent distress. Not in pain. Tolerating venturi mask- satting 100%. LEft side of chest elevated. Continue to plan of care.
[2020-05-05 04:00] VITALS: BP 111/68
--- NOTE | 2020-05-05 04:00 | NUR ---
NURSE NOTES: Noted fever. Sponge bath given. Tylenol given as ordered. Suctioned secretions by RT. Continue to monitor pt.
[2020-05-05] MEDS: NovoLOG Insulin Flexpen SUBQ SCH ×4 (05:30→21:00)
[2020-05-05 05:53] LABS: BASOPHILS % (AUTO) 0.7 % (0.0-2.0); EOSINOPHILS % (AUTO) 3.7 % (0.0-3.0); HEMATOCRIT 30.1 % (42.0-52.0); HEMOGLOBIN 9.5 G/DL (14.2-18.0); LYMPHOCYTES % (AUTO) 15.3 % (20.0-45.0); MEAN CORPUSCULAR VOLUME 96 FL (80-99); MONOCYTES % (AUTO) 6.8 % (1.0-10.0); NEUTROPHILS % (AUTO) 73.5 % (45.0-75.0); PLATELET COUNT 250 K/UL (150-450); RED BLOOD COUNT 3.14 M/UL (4.70-6.10); RED CELL DISTRIBUTION WIDTH 13.5 % (11.6-14.8); WHITE BLOOD COUNT 8.9 K/UL (4.8-10.8)
[2020-05-05 06:04] LABS: ANION GAP 3 mmol/L (5-15); BLOOD UREA NITROGEN 22 mg/dL (7-18); CALCIUM 7.6 MG/DL (8.5-10.1); CARBON DIOXIDE 29 MMOL/L (21-32); CHLORIDE 110 MMOL/L (98-107); CREATININE 0.8 MG/DL (0.55-1.30); POTASSIUM 4.9 MMOL/L (3.5-5.1); SODIUM 142 MMOL/L (136-145)
--- NOTE | 2020-05-05 06:33 | NUR ---
NURSE NOTES: Pt is still febrile. Sponge bath given. Not in respiratory distress. o2 sat- 98%.
--- NOTE | 2020-05-05 06:50 | Hematology/Onc Progress Note ---
Assessment/Plan Assessment/Plan # Bilateral pulmonary emboli on cta as well as Dvt on duplex --> Equivocal evidence of right heart strain; RV /LV ratio around 0.5 but is somewhat difficult to assess due to ventricular muscle hypertrophy --> duplex Positive for bilateral lower extremity deep venous thrombosis, as described --> continue on heparin gtt until stabilizes, then consider noac --> 04/29 started on eliquis # Anemia of chronic disease, anemia panel is noted --> r/o bleed, is on anticoag --> hgb 10-->8.7-->8.5-->9.4-->9.7-->>9.5 -> no hemolysis is noted # Leukocytosis due to sepsis/uti --> ABX Cefepime/vanc-->off --> smear is reviewed # COPD. --> breathing rx as needed # Diabetes mellitus --> iss, accuchecks qac and qhs # Schizophrenia. --> per psych recs # History of CVA with left hemiparesis. # Dementia. # Dysphagia with ngt # Folate def # Dvt ppx eliquis Appreciate consultation and jorge l Rn Subjective HEENT: Denies: no symptoms, eye pain, blurred vision, tearing, double vision, ear pain, ear discharge, nose pain, nose congestion, throat pain, throat swelling, mouth pain, mouth swelling, other Cardiovascular: Denies: no symptoms, chest pain, edema, irregular heart rate, lightheadedness, palpitations, syncope, other Respiratory: Denies: no symptoms, cough, shortness of breath, SOB with excertion, SOB at rest, sputum, wheezing, other Gastrointestinal/Abdominal: Denies: no symptoms, abdomen distended, abdominal pain, black stools, tarry stools, blood in stool, constipated, diarrhea, difficulty swallowing, nausea, poor appetite, poor fluid intake, rectal bleeding, vomiting, other Genitourinary: Denies: no symptoms, burning, discharge, frequency, flank pain, hematuria, incontinence, pain, urgency, other Neurologic/Psychiatric: Denies: no symptoms, anxiety, depressed, emotional problems, headache, numbness, paresthesia, pre-existing deficit, seizure, tingling, tremors, weakness, other Endocrine: Denies: no symptoms, excessive sweating, flushing, intolerance to cold, intolerance to heat, increased hunger, increased thirst, increased urine, unexplained weight gain, unexplained weight loss, other Allergies: Coded Allergies: No Known Allergies (Unverified , 06/11/17) Subjective 04/29 remains on heparin gtt, labs noted, no bleeding, h/h stable, on folate 04/30 meds noted, changed to apixaban, labs noted 05/02 asleep, no bleeding, meds noted, labs reviewed, on noac 05/03 is asleep, no bleeding, no night sweats reported, cbc noted 05/04 remains lethargic, hgb 9.7, no bleeding, meds noted 05/05 labs reviewed, hgb 9.5, dressing changes, no events Objective Objective Current Medications Medications (Trade) Dose Ordered Sig/Lopez Route PRN Reason Start Time Stop Time Status Last Admin Dose Admin Acetaminophen (Tylenol) 650 mg Q4H PRN ORAL fever 04/25/20 00:00 05/25/20 00:00 05/05/20 04:40 Apixaban (Eliquis) 5 mg BID ORAL 05/06/20 18:00 08/04/20 17:59 Apixaban (Eliquis) 10 mg BID ORAL 04/29/20 18:00 05/06/20 09:01 05/04/20 18:48 Chlorhexidine Gluconate (Arpita-Hex 2%) 1 applic DAILY@1999 TOPIC 04/29/20 20:00 07/28/20 19:59 05/04/20 20:14 Dextrose (Dextrose 50%) 25 ml Q30M PRN IV Hypoglycemia 04/25/20 00:00 07/24/20 00:00 Dextrose (Dextrose 50%) 50 ml Q30M PRN IV Hypoglycemia 04/25/20 00:00 07/24/20 00:00 Folic Acid (Folate) 1 mg DAILY ORAL 04/29/20 09:00 05/29/20 08:59 05/04/20 10:05 Insulin Aspart (NovoLOG) BEFORE MEALS AND HS SUBQ 04/25/20 06:30 07/24/20 06:29 04/28/20 06:22 Lamotrigine (LaMICtal) 25 mg DAILY ORAL 04/25/20 09:00 05/25/20 08:59 05/04/20 10:05 Memantine (Namenda) 5 mg TWICE A DAY ORAL 04/25/20 09:00 05/25/20 08:59 05/04/20 18:48 Metoprolol Tartrate (Lopressor) 50 mg BID GT 05/01/20 20:00 07/30/20 19:59 05/04/20 18:48 Olanzapine (ZyPREXA) 5 mg DAILY ORAL 04/25/20 09:00 06/09/20 08:59 05/04/20 10:05 Ondansetron HCl (Zofran) 4 mg Q6H PRN IVP Nausea & Vomiting 04/25/20 00:00 05/25/20 00:00 Polyethylene Glycol (Miralax) 17 gm DAILYPRN PRN ORAL Constipation 04/25/20 00:00 05/25/20 00:00 Potassium Chloride (K-Dur) 20 meq TWICE A DAY GT 05/01/20 12:15 07/30/20 12:14 05/04/20 18:48 Quetiapine Fumarate (SEROqueL) 50 mg Q12HR ORAL 04/27/20 11:30 06/11/20 11:29 05/04/20 20:14 Last 24 Hour Vital Signs Date Time Temp Pulse Resp B/P (MAP) Pulse Ox O2 Delivery O2 Flow Rate FiO2 05/05/20 05:11 99.0 05/05/20 04:00 10.0 45 05/05/20 04:00 77 05/05/20 04:00 100.4 69 22 111/68 (82) 99 05/05/20 04:00 Venturi Mask 05/05/20 00:00 98.4 78 21 120/53 (75) 99 05/05/20 00:00 10.0 45 05/05/20 00:00 Venturi Mask 05/04/20 23:38 83 05/04/20 20:52 98.6 71 22 133/62 (85) 98 05/04/20 20:14 75 05/04/20 20:00 10.0 45 05/04/20 20:00 Venturi Mask 05/04/20 18:52 95 Venturi Mask 10.0 45 05/04/20 18:48 67 120/52 05/04/20 16:00 Venturi Mask 05/04/20 16:00 100.0 74 19 120/52 (74) 93 05/04/20 16:00 67 05/04/20 15:24 10.0 45 05/04/20 12:00 67 05/04/20 11:51 10.0 45 05/04/20 11:49 Venturi Mask 05/04/20 11:37 98.2 56 24 103/51 (68) 98 05/04/20 10:05 83 127/70 05/04/20 08:00 97.2 83 24 127/70 (89) 100 05/04/20 08:00 10.0 45 05/04/20 08:00 Venturi Mask 05/04/20 08:00 80 05/04/20 07:05 97 Venturi Mask 10.0 45 05/04/20 04:00 97.9 83 21 124/68 (86) 100 05/04/20 04:00 79 05/04/20 04:00 10.0 45 05/04/20 04:00 Venturi Mask 05/04/20 00:21 75 05/04/20 00:00 10.0 45 05/04/20 00:00 Venturi Mask 05/04/20 00:00 98.1 71 22 117/59 (78) 98 05/03/20 20:00 Venturi Mask 05/03/20 20:00 96.3 66 21 136/70 (92) 97 05/03/20 20:00 10.0 45 05/03/20 20:00 75 05/03/20 17:12 79 139/55 05/03/20 16:35 96 Venturi Mask 10.0 45 05/03/20 16:00 98.1 72 17 139/55 (83) 100 05/03/20 16:00 Bi-pap 05/03/20 16:00 10.0 45 05/03/20 16:00 79 05/03/20 13:29 71 22 97 45 05/03/20 13:00 45 05/03/20 12:00 Bi-pap 05/03/20 12:00 97.7 67 16 133/69 (90) 100 05/03/20 12:00 60 05/03/20 12:00 69 05/03/20 11:43 68 22 100 60 05/03/20 09:35 67 24 100 60 05/03/20 09:14 82 128/71 05/03/20 08:01 67 21 99 60 05/03/20 08:01 99 Bi-Pap 60 05/03/20 08:00 Bi-pap 05/03/20 08:00 78 05/03/20 08:00 60 05/03/20 08:00 98.2 82 18 128/71 (90) 99 Intake and Output 05/04/20 05/05/20 19:00 07:00 Intake Total 790 ml 700 ml Output Total 800 ml 650 ml Balance -10 ml 50 ml Free Water 240 ml 150 ml Tube Feeding 550 ml 550 ml Output Urine Total 800 ml 650 ml # Bowel Movements 2 Labs Test 05/02/20 12:04 05/02/20 16:45 05/02/20 20:27 05/03/20 03:30 POC Whole Blood Glucose 92 MG/DL (74-106) 113 MG/DL (74-106) 110 MG/DL (74-106) White Blood Count 7.6 K/UL (4.8-10.8) Red Blood Count 3.30 M/UL (4.70-6.10) Hemoglobin 10.0 G/DL (14.2-18.0) Hematocrit 31.6 % (42.0-52.0) Mean Corpuscular Volume 96 FL (80-99) Mean Corpuscular Hemoglobin 30.3 PG (27.0-31.0) Mean Corpuscular Hemoglobin Concent 31.7 G/DL (32.0-36.0) Red Cell Distribution Width 13.8 % (11.6-14.8) Platelet Count 211 K/UL (150-450) Mean Platelet Volume 6.5 FL (6.5-10.1) Neutrophils (%) (Auto) 75.7 % (45.0-75.0) Lymphocytes (%) (Auto) 13.6 % (20.0-45.0) Monocytes (%) (Auto) 6.8 % (1.0-10.0) Eosinophils (%) (Auto) 3.4 % (0.0-3.0) Basophils (%) (Auto) 0.6 % (0.0-2.0) Sodium Level 144 MMOL/L (136-145) Potassium Level 4.1 MMOL/L (3.5-5.1) Chloride Level 111 MMOL/L (98-107) Carbon Dioxide Level 27 MMOL/L (21-32) Anion Gap 7 mmol/L (5-15) Blood Urea Nitrogen 21 mg/dL (7-18) Creatinine 0.8 MG/DL (0.55-1.30) Estimat Glomerular Filtration Rate > 60 mL/min (>60) Glucose Level 101 MG/DL (74-106) Calcium Level 7.6 MG/DL (8.5-10.1) Phosphorus Level 2.4 MG/DL (2.5-4.9) Magnesium Level 1.9 MG/DL (1.8-2.4) Total Bilirubin 0.4 MG/DL (0.2-1.0) Aspartate Amino Transf (AST/SGOT) 60 U/L (15-37) Alanine Aminotransferase (ALT/SGPT) 44 U/L (12-78) Alkaline Phosphatase 97 U/L (46-116) Total Protein 4.7 G/DL (6.4-8.2) Albumin 1.4 G/DL (3.4-5.0) Globulin 3.3 g/dL Albumin/Globulin Ratio 0.4 (1.0-2.7) Test 05/03/20 05:10 05/03/20 10:25 05/03/20 11:33 05/03/20 17:09 POC Whole Blood Glucose 124 MG/DL (74-106) 109 MG/DL (74-106) Arterial Blood pH 7.457 (7.350-7.450) Arterial Blood Partial Pressure CO2 32.0 mmHg (35.0-45.0) Arterial Blood Partial Pressure O2 131.2 mmHg (75.0-100.0) Arterial Blood HCO3 22.1 mmol/L (22.0-26.0) Arterial Blood Oxygen Saturation 98.6 % (95-100) Arterial Blood Base Excess -1.2 (-2-2) Pepe Test Positive Test 05/03/20 20:19 05/04/20 03:30 05/04/20 05:01 05/04/20 11:40 POC Whole Blood Glucose 118 MG/DL (74-106) 126 MG/DL (74-106) 118 MG/DL (74-106) White Blood Count 8.2 K/UL (4.8-10.8) Red Blood Count 3.16 M/UL (4.70-6.10) Hemoglobin 9.7 G/DL (14.2-18.0) Hematocrit 30.1 % (42.0-52.0) Mean Corpuscular Volume 95 FL (80-99) Mean Corpuscular Hemoglobin 30.8 PG (27.0-31.0) Mean Corpuscular Hemoglobin Concent 32.3 G/DL (32.0-36.0) Red Cell Distribution Width 13.9 % (11.6-14.8) Platelet Count 228 K/UL (150-450) Mean Platelet Volume 6.5 FL (6.5-10.1) Neutrophils (%) (Auto) 74.7 % (45.0-75.0) Lymphocytes (%) (Auto) 15.1 % (20.0-45.0) Monocytes (%) (Auto) 5.9 % (1.0-10.0) Eosinophils (%) (Auto) 3.9 % (0.0-3.0) Basophils (%) (Auto) 0.5 % (0.0-2.0) Sodium Level 142 MMOL/L (136-145) Potassium Level 4.5 MMOL/L (3.5-5.1) Chloride Level 111 MMOL/L (98-107) Carbon Dioxide Level 26 MMOL/L (21-32) Anion Gap 5 mmol/L (5-15) Blood Urea Nitrogen 21 mg/dL (7-18) Creatinine 0.7 MG/DL (0.55-1.30) Estimat Glomerular Filtration Rate > 60 mL/min (>60) Glucose Level 119 MG/DL (74-106) Calcium Level 7.5 MG/DL (8.5-10.1) Test 05/04/20 16:55 05/04/20 20:13 05/04/20 20:45 05/05/20 00:00 POC Whole Blood Glucose 103 MG/DL (74-106) 108 MG/DL (74-106) Magnesium Level 2.2 MG/DL (1.8-2.4) Test 05/05/20 04:20 05/05/20 04:39 White Blood Count 8.9 K/UL (4.8-10.8) Red Blood Count 3.14 M/UL (4.70-6.10) Hemoglobin 9.5 G/DL (14.2-18.0) Hematocrit 30.1 % (42.0-52.0) Mean Corpuscular Volume 96 FL (80-99) Mean Corpuscular Hemoglobin 30.2 PG (27.0-31.0) Mean Corpuscular Hemoglobin Concent 31.5 G/DL (32.0-36.0) Red Cell Distribution Width 13.5 % (11.6-14.8) Platelet Count 250 K/UL (150-450) Mean Platelet Volume 6.4 FL (6.5-10.1) Neutrophils (%) (Auto) 73.5 % (45.0-75.0) Lymphocytes (%) (Auto) 15.3 % (20.0-45.0) Monocytes (%) (Auto) 6.8 % (1.0-10.0) Eosinophils (%) (Auto) 3.7 % (0.0-3.0) Basophils (%) (Auto) 0.7 % (0.0-2.0) Sodium Level 142 MMOL/L (136-145) Potassium Level 4.9 MMOL/L (3.5-5.1) Chloride Level 110 MMOL/L (98-107) Carbon Dioxide Level 29 MMOL/L (21-32) Anion Gap 3 mmol/L (5-15) Blood Urea Nitrogen 22 mg/dL (7-18) Creatinine 0.8 MG/DL (0.55-1.30) Estimat Glomerular Filtration Rate > 60 mL/min (>60) Glucose Level 109 MG/DL (74-106) Calcium Level 7.6 MG/DL (8.5-10.1) POC Whole Blood Glucose 124 MG/DL (74-106) Height (Feet): 6 Height (Inches): 0.00 Weight (Pounds): 148 Sree Dubon MD May 05, 2020 06:49
--- NOTE | 2020-05-05 07:05 | NUR ---
NURSE HAND-OFF REPORT: Important Events on Shift: Fever- 100.2, Bigeminy PAC- Dr Whitney Aware Patient Status: Stable Diet: Glucerna 1.2@ 50ml/hr Pending Orders: None Pending Results/Labs:None Pending notification: None Latest Vital Signs: Temperature 99.0 , Pulse 77 , B/P 111 /68 , Respiratory Rate 22 , O2 SAT 99 , Venturi Mask, O2 Flow Rate 10.0 . Vital Sign Comment: Fever noted EKG Rhythm: Sinus Rhythm Rhythm change?: Y Notified?: N -Dr. Devonte SAAVEDRA Response: No New Orders Received Latest Andersen Fall Score: 70 Fall Risk: High Risk Safety Measures: Call light Within Reach, Bed Alarm Zone 2, Side Rails Side Rails x3, Bed position Low and Locked. Fall Precautions: Yellow Socks Yellow Gown Door Sign Patient Fall Education Report given to [CRUZ Segura}.
--- NOTE | 2020-05-05 07:42 | NUR ---
NURSE NOTES:Handoff received from CRUZ Muir. Patient received sleeping in bed, no acute signs of distress noted. Per Dr Downey patient to be elevated on left side. Patient is on Venturi mask 10 Liters 02 and FI02 of 45% with saturation of 100%. environmental monitoring technician shows HR of 66 SR . Patient has NG tube running Glucerna 1.2@ 50Ml/HR continuos. Patient has Contreras cath patent and draining to gravity. Skin issues noted, IV site and PICC line are clean dry and intact, saline locked. patient is on contact, aspiration, fall and seizure precautions with side tails padded and bed in the low and locked position with call light on the bed. Will follow plan of care.
--- NOTE | 2020-05-05 07:43 | Infectious Diseases Prog Note ---
Assessment/Plan 80yo M with: Fever x1 05/05 05/05 BCx ordered CXR ordered Sepsis UTI -u/a wbc 50-60, nit neg, leuk +1; ucx Neg Gram positive bacteremia- m/l contaminant -04/24 sp cx 1/2 S. epi; 04/26 Bcx NTD Fever; SP No leukocytosis -04/26 influenza screen neg CXR: Borderline cardiomegaly. No acute process -04/24 CXR: No acute cardiopulmonary disease. covid rapid PCR neg Acute hypoxic resp failure- SP NRB>Bipap> VM . BiPAP B/l DVT and PE -CTA chest: Positive for bilateral pulmonary emboli Equivocal evidence of right heart strain; RV /LV ratio around 0.5 but is somewhat difficult to assess due to ventricular muscle hypertrophy. Left basilar compressive atelectasis, ple ural fluid, and possibly some consolidation. Trace right pleural fluid. Subtle mosaic perfusion pattern, nonspecific but probably represents very mild pulmonary edema. Cardiomegaly. Nasogastric tube -V. duplex: : On the right, occlusive thrombus is seen within the downstream common femoral vein, the femoral vein, popliteal vein as well as within multiple calf veins. On the left, occlusive thrombus is seen within the femoral vein and popliteal vein the common femoral vein and calf veins are patent. COPD DM2 HTN schizophrenia malnutrition CVA w/ left spastic hemiparesis vascular dementia schizoaffective-bipolar type SNF resident (Everette peterson) Plan: Cont to monitor off abx BCx CXR given fever Trend temp curve closely, if continues to fever will start Zosyn 05/01 SP cefepime #8 04/30 SP vanco IV #6 -f/u cx -Monitor CBC/CMP, temperatures -aspiration precautions D/w RN Thank you for consulting [facility]. Will continue to follow along with you. Subjective Allergies: Coded Allergies: No Known Allergies (Unverified , 06/11/17) Tmax 100.4 WBC stable at 8 NAD in bed Objective Last 24 Hour Vital Signs Date Time Temp Pulse Resp B/P (MAP) Pulse Ox O2 Delivery O2 Flow Rate FiO2 05/05/20 05:11 99.0 05/05/20 04:00 10.0 45 05/05/20 04:00 77 05/05/20 04:00 100.4 69 22 111/68 (82) 99 05/05/20 04:00 Venturi Mask 05/05/20 00:00 98.4 78 21 120/53 (75) 99 05/05/20 00:00 10.0 45 05/05/20 00:00 Venturi Mask 05/04/20 23:38 83 05/04/20 20:52 98.6 71 22 133/62 (85) 98 05/04/20 20:14 75 05/04/20 20:00 10.0 45 05/04/20 20:00 Venturi Mask 05/04/20 18:52 95 Venturi Mask 10.0 45 05/04/20 18:48 67 120/52 05/04/20 16:00 Venturi Mask 05/04/20 16:00 100.0 74 19 120/52 (74) 93 05/04/20 16:00 67 05/04/20 15:24 10.0 45 05/04/20 12:00 67 05/04/20 11:51 10.0 45 05/04/20 11:49 Venturi Mask 05/04/20 11:37 98.2 56 24 103/51 (68) 98 05/04/20 10:05 83 127/70 05/04/20 08:00 97.2 83 24 127/70 (89) 100 05/04/20 08:00 10.0 45 05/04/20 08:00 Venturi Mask 05/04/20 08:00 80 Height (Feet): 6 Height (Inches): 0.00 Weight (Pounds): 148 Gen: NAD in bed HEENT: NCAT on Venti mask CV: RRR Pulm: CTAB Abd: Soft, NTND Ext: No c/c/e Neuro: Sleeping Laboratory Tests Test 05/04/20 11:40 05/04/20 16:55 05/04/20 20:13 05/04/20 20:45 POC Whole Blood Glucose 118 MG/DL (74-106) H 103 MG/DL (74-106) 108 MG/DL (74-106) H Magnesium Level 2.2 MG/DL (1.8-2.4) Test 05/05/20 00:00 05/05/20 04:20 05/05/20 04:39 Stool Occult Blood Pending White Blood Count 8.9 K/UL (4.8-10.8) Red Blood Count 3.14 M/UL (4.70-6.10) L Hemoglobin 9.5 G/DL (14.2-18.0) L Hematocrit 30.1 % (42.0-52.0) L Mean Corpuscular Volume 96 FL (80-99) Mean Corpuscular Hemoglobin 30.2 PG (27.0-31.0) Mean Corpuscular Hemoglobin Concent 31.5 G/DL (32.0-36.0) L Red Cell Distribution Width 13.5 % (11.6-14.8) Platelet Count 250 K/UL (150-450) Mean Platelet Volume 6.4 FL (6.5-10.1) L Neutrophils (%) (Auto) 73.5 % (45.0-75.0) Lymphocytes (%) (Auto) 15.3 % (20.0-45.0) L Monocytes (%) (Auto) 6.8 % (1.0-10.0) Eosinophils (%) (Auto) 3.7 % (0.0-3.0) H Basophils (%) (Auto) 0.7 % (0.0-2.0) Sodium Level 142 MMOL/L (136-145) Potassium Level 4.9 MMOL/L (3.5-5.1) Chloride Level 110 MMOL/L (98-107) H Carbon Dioxide Level 29 MMOL/L (21-32) Anion Gap 3 mmol/L (5-15) L Blood Urea Nitrogen 22 mg/dL (7-18) H Creatinine 0.8 MG/DL (0.55-1.30) Estimat Glomerular Filtration Rate > 60 mL/min (>60) Glucose Level 109 MG/DL (74-106) H Calcium Level 7.6 MG/DL (8.5-10.1) L POC Whole Blood Glucose 124 MG/DL (74-106) H Current Medications Medications (Trade) Dose Ordered Sig/Lopez Route PRN Reason Start Time Stop Time Status Last Admin Dose Admin Acetaminophen (Tylenol) 650 mg Q4H PRN ORAL fever 04/25/20 00:00 05/25/20 00:00 05/05/20 04:40 Apixaban (Eliquis) 5 mg BID ORAL 05/06/20 18:00 08/04/20 17:59 Apixaban (Eliquis) 10 mg BID ORAL 04/29/20 18:00 05/06/20 09:01 05/04/20 18:48 Chlorhexidine Gluconate (Arpita-Hex 2%) 1 applic DAILY@2000 TOPIC 04/29/20 20:00 07/28/20 19:59 05/04/20 20:14 Dextrose (Dextrose 50%) 25 ml Q30M PRN IV Hypoglycemia 04/25/20 00:00 07/24/20 00:00 Dextrose (Dextrose 50%) 50 ml Q30M PRN IV Hypoglycemia 04/25/20 00:00 07/24/20 00:00 Folic Acid (Folate) 1 mg DAILY ORAL 04/29/20 09:00 05/29/20 08:59 05/04/20 10:05 Insulin Aspart (NovoLOG) BEFORE MEALS AND HS SUBQ 04/25/20 06:30 07/24/20 06:29 04/28/20 06:22 Lamotrigine (LaMICtal) 25 mg DAILY ORAL 04/25/20 09:00 05/25/20 08:59 05/04/20 10:05 Memantine (Namenda) 5 mg TWICE A DAY ORAL 04/25/20 09:00 05/25/20 08:59 05/04/20 18:48 Metoprolol Tartrate (Lopressor) 50 mg BID GT 05/01/20 20:00 07/30/20 19:59 05/04/20 18:48 Olanzapine (ZyPREXA) 5 mg DAILY ORAL 04/25/20 09:00 06/09/20 08:59 05/04/20 10:05 Ondansetron HCl (Zofran) 4 mg Q6H PRN IVP Nausea & Vomiting 04/25/20 00:00 05/25/20 00:00 Polyethylene Glycol (Miralax) 17 gm DAILYPRN PRN ORAL Constipation 04/25/20 00:00 05/25/20 00:00 Potassium Chloride (K-Dur) 20 meq TWICE A DAY GT 05/01/20 12:15 07/30/20 12:14 05/04/20 18:48 Quetiapine Fumarate (SEROqueL) 50 mg Q12HR ORAL 04/27/20 11:30 06/11/20 11:29 05/04/20 20:14 Raina Loving M.D. May 05, 2020 07:43
[2020-05-05 08:00] VITALS: BP 140/73
--- NOTE | 2020-05-05 09:00 | NUR ---
NURSE NOTES:NG tube flushed with air and auscultated before meds were given. NG tube in the same position. Meds given, No residual noted from NG tube feeding.
[2020-05-05] MEDS: Memantine 10mg tab ORAL SCH ×2 (09:43→17:00)
[2020-05-05] MEDS: Metoprolol Tartrate 50mg tab GT SCH ×2 (09:44→17:00)
[2020-05-05] MEDS: Eliquis 5mg tablet ORAL SCH ×2 (09:44→17:00)
--- NOTE | 2020-05-05 09:50 | NUR ---
RADIOLOGY: PCXR COMPLETED 0930HRS. NF
--- NOTE | 2020-05-05 10:07 | General Progress Note ---
Subjective ROS Limited/Unobtainable: No Allergies: Coded Allergies: No Known Allergies (Unverified , 06/11/17) Objective Last 24 Hour Vital Signs Date Time Temp Pulse Resp B/P (MAP) Pulse Ox O2 Delivery O2 Flow Rate FiO2 05/05/20 09:51 98 Venturi Mask 10.0 45 05/05/20 09:44 63 140/73 05/05/20 08:00 10.0 45 05/05/20 08:00 98.4 63 20 140/73 (95) 100 05/05/20 08:00 Venturi Mask 05/05/20 05:11 99.0 05/05/20 04:00 10.0 45 05/05/20 04:00 77 05/05/20 04:00 100.4 69 22 111/68 (82) 99 05/05/20 04:00 Venturi Mask 05/05/20 00:00 98.4 78 21 120/53 (75) 99 05/05/20 00:00 10.0 45 05/05/20 00:00 Venturi Mask 05/04/20 23:38 83 05/04/20 20:52 98.6 71 22 133/62 (85) 98 05/04/20 20:14 75 05/04/20 20:00 10.0 45 05/04/20 20:00 Venturi Mask 05/04/20 18:52 95 Venturi Mask 10.0 45 05/04/20 18:48 67 120/52 05/04/20 16:00 Venturi Mask 05/04/20 16:00 100.0 74 19 120/52 (74) 93 05/04/20 16:00 67 05/04/20 15:24 10.0 45 05/04/20 12:00 67 05/04/20 11:51 10.0 45 05/04/20 11:49 Venturi Mask 05/04/20 11:37 98.2 56 24 103/51 (68) 98 Intake and Output 05/04/20 05/05/20 19:00 07:00 Intake Total 790 ml 700 ml Output Total 800 ml 650 ml Balance -10 ml 50 ml Free Water 240 ml 150 ml Tube Feeding 550 ml 550 ml Output Urine Total 800 ml 650 ml # Bowel Movements 2 Laboratory Tests 05/04/20 11:40: POC Whole Blood Glucose 118H 05/04/20 16:55: POC Whole Blood Glucose 103 05/04/20 20:13: POC Whole Blood Glucose 108H 05/04/20 20:45: Magnesium Level 2.2 05/05/20 00:00: Stool Occult Blood [Pending] 05/05/20 04:20: White Blood Count 8.9, Red Blood Count 3.14L, Hemoglobin 9.5L, Hematocrit 30.1L, Mean Corpuscular Volume 96, Mean Corpuscular Hemoglobin 30.2, Mean Corpuscular Hemoglobin Concent 31.5L, Red Cell Distribution Width 13.5, Platelet Count 250, Mean Platelet Volume 6.4L, Neutrophils (%) (Auto) 73.5, Lymphocytes (%) (Auto) 15.3L, Monocytes (%) (Auto) 6.8, Eosinophils (%) (Auto) 3.7H, Basophils (%) (Auto) 0.7, Sodium Level 142, Potassium Level 4.9, Chloride Level 110H, Carbon Dioxide Level 29, Anion Gap 3L, Blood Urea Nitrogen 22H, Creatinine 0.8, Estimat Glomerular Filtration Rate > 60, Glucose Level 109H, Calcium Level 7.6L 05/05/20 04:39: POC Whole Blood Glucose 124H Height (Feet): 6 Height (Inches): 0.00 Weight (Pounds): 148 General Appearance: no apparent distress EENT: normal ENT inspection Neck: supple Cardiovascular: normal rate Respiratory/Chest: decreased breath sounds Abdomen: normal bowel sounds, non tender, soft Extremities: non-tender Assessment/Plan Status: unchanged Assessment/Plan: 1. COPD. 2. Diabetes. 3. Schizophrenia. 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 5. Dementia. 6. Anemia 7. Dysphagia 8. Folate def NGTF on low dose given patient on BIPAP folate not stable for PEG on BIPAP neg stool ob>>> neg will Nathan Kemp MD May 05, 2020 10:07
--- NOTE | 2020-05-05 10:56 | NUR ---
NURSE NOTES:Dr Loving rounded on patient, requested to be notified if patient spikes another fever, will monitor patient and endorse to PM shift.
--- NOTE | 2020-05-05 11:06 | General Progress Note ---
Subjective Constitutional: Reports: weakness Allergies: Coded Allergies: No Known Allergies (Unverified , 06/11/17) All Systems: reviewed and negative except above Subjective bipap sleepy in bed Objective Last 24 Hour Vital Signs Date Time Temp Pulse Resp B/P (MAP) Pulse Ox O2 Delivery O2 Flow Rate FiO2 05/05/20 09:51 98 Venturi Mask 10.0 45 05/05/20 09:44 63 140/73 05/05/20 08:00 66 05/05/20 08:00 10.0 45 05/05/20 08:00 98.4 63 20 140/73 (95) 100 05/05/20 08:00 Venturi Mask 05/05/20 05:11 99.0 05/05/20 04:00 10.0 45 05/05/20 04:00 77 05/05/20 04:00 100.4 69 22 111/68 (82) 99 05/05/20 04:00 Venturi Mask 05/05/20 00:00 98.4 78 21 120/53 (75) 99 05/05/20 00:00 10.0 45 05/05/20 00:00 Venturi Mask 05/04/20 23:38 83 05/04/20 20:52 98.6 71 22 133/62 (85) 98 05/04/20 20:14 75 05/04/20 20:00 10.0 45 05/04/20 20:00 Venturi Mask 05/04/20 18:52 95 Venturi Mask 10.0 45 05/04/20 18:48 67 120/52 05/04/20 16:00 Venturi Mask 05/04/20 16:00 100.0 74 19 120/52 (74) 93 05/04/20 16:00 67 05/04/20 15:24 10.0 45 05/04/20 12:00 67 05/04/20 11:51 10.0 45 05/04/20 11:49 Venturi Mask 05/04/20 11:37 98.2 56 24 103/51 (68) 98 Intake and Output 05/04/20 05/05/20 19:00 07:00 Intake Total 790 ml 700 ml Output Total 800 ml 650 ml Balance -10 ml 50 ml Free Water 240 ml 150 ml Tube Feeding 550 ml 550 ml Output Urine Total 800 ml 650 ml # Bowel Movements 2 Laboratory Tests 11/17/20 11:40: POC Whole Blood Glucose 118H 05/04/20 16:55: POC Whole Blood Glucose 103 05/04/20 20:13: POC Whole Blood Glucose 108H 05/04/20 20:45: Magnesium Level 2.2 05/05/20 00:00: Stool Occult Blood [Pending] 05/05/20 04:20: White Blood Count 8.9, Red Blood Count 3.14L, Hemoglobin 9.5L, Hematocrit 30.1L, Mean Corpuscular Volume 96, Mean Corpuscular Hemoglobin 30.2, Mean Corpuscular Hemoglobin Concent 31.5L, Red Cell Distribution Width 13.5, Platelet Count 250, Mean Platelet Volume 6.4L, Neutrophils (%) (Auto) 73.5, Lymphocytes (%) (Auto) 15.3L, Monocytes (%) (Auto) 6.8, Eosinophils (%) (Auto) 3.7H, Basophils (%) (Auto) 0.7, Sodium Level 142, Potassium Level 4.9, Chloride Level 110H, Carbon Dioxide Level 29, Anion Gap 3L, Blood Urea Nitrogen 22H, Creatinine 0.8, Estimat Glomerular Filtration Rate > 60, Glucose Level 109H, Calcium Level 7.6L 05/05/20 04:39: POC Whole Blood Glucose 124H Height (Feet): 6 Height (Inches): 0.00 Weight (Pounds): 148 General Appearance: lethargic EENT: normal ENT inspection Neck: normal alignment Cardiovascular: normal peripheral pulses, normal rate, regular rhythm Respiratory/Chest: chest wall non-tender, lungs clear, normal breath sounds Abdomen: normal bowel sounds, non tender, soft Extremities: normal inspection Edema: no edema noted Arm (L), no edema noted Arm (R), no edema noted Leg (L), no edema noted Leg (R), no edema noted Pedal (L), no edema noted Pedal (R), no edema noted Generalized Neurologic: motor weakness Skin: normal pigmentation, warm/dry Assessment/Plan Problem List: (1) UTI (urinary tract infection) ICD Codes: N39.0 - Urinary tract infection, site not specified SNOMED: 51232233 (2) CVA (cerebral vascular accident) ICD Codes: I63.9 - Cerebral infarction, unspecified SNOMED: 569996998 (3) KORY (acute kidney injury) ICD Codes: N17.9 - Acute kidney failure, unspecified SNOMED: 8759365, 26995098 (4) HTN (hypertension) ICD Codes: I10 - Essential (primary) hypertension SNOMED: 43886151 (5) Diabetes ICD Codes: E11.9 - Type 2 diabetes mellitus without complications SNOMED: 67777089 (6) Dehydration ICD Codes: E86.0 - Dehydration SNOMED: 53700026 (7) Hypernatremia ICD Codes: E87.0 - Hyperosmolality and hypernatremia SNOMED: 98221619 (8) Acute respiratory failure ICD Codes: J96.00 - Acute respiratory failure, unspecified whether with hypoxia or hypercapnia SNOMED: 94896674 Status: unchanged Assessment/Plan: o2 pulm tx abx pt diet cbc bmp am aru and ltach German Villanueva DO May 05, 2020 11:06
[2020-05-05 12:00] VITALS: BP 158/52
--- NOTE | 2020-05-05 12:37 | Pulmonolgy Critical Care Note ---
Critical Care - Asmt/Plan Problems: (1) Lung collapse Assessment & Plan: left lung opened up. (2) Acute respiratory failure (3) Acute massive pulmonary embolism (4) Acute deep vein thrombosis (DVT) (5) ATN (acute tubular necrosis) (6) Acute encephalopathy (7) UTI (urinary tract infection) (8) Protein-calorie malnutrition, severe (9) Diabetes (10) HTN (hypertension) (11) CVA (cerebral vascular accident) Respiratory: monitor respiratory rate, adjust FIO2, CXR Cardiac: continue pressors, continue to monitor HR/BP Renal: F/U I&O, check electrolytes Infectious Disease: check cultures, continue antibiotics Gastrointestinal: continue feedings/current rate Endocrine: monitor blood sugar, continue sliding scale insulin Hematologic: monitor H/H, transfuse if hgb<8.5 Neurologic: PRN Ativan, PRN Morphine, keep patient comfortable Affect: PRN ativan Prophylaxis: Protonix Time Spent (Minutes): 40 Notes Reviewed: retirement assistant, cardio, 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 with: nurses, consultants, human services case managerbroiler manager - Objective Last 24 Hour Vital Signs Date Time Temp Pulse Resp B/P (MAP) Pulse Ox O2 Delivery O2 Flow Rate FiO2 05/05/20 12:00 10.0 45 05/05/20 09:51 98 Venturi Mask 10.0 45 05/05/20 09:44 63 140/73 05/05/20 08:00 66 05/05/20 08:00 10.0 45 05/05/20 08:00 98.4 63 20 140/73 (95) 100 05/05/20 08:00 Venturi Mask 05/05/20 05:11 99.0 05/05/20 04:00 10.0 45 05/05/20 04:00 77 05/05/20 04:00 100.4 69 22 111/68 (82) 99 05/05/20 04:00 Venturi Mask 05/05/20 00:00 98.4 78 21 120/53 (75) 99 05/05/20 00:00 10.0 45 05/05/20 00:00 Venturi Mask 05/04/20 23:38 83 05/04/20 20:52 98.6 71 22 133/62 (85) 98 05/04/20 20:14 75 05/04/20 20:00 10.0 45 05/04/20 20:00 Venturi Mask 05/04/20 18:52 95 Venturi Mask 10.0 45 05/04/20 18:48 67 120/52 05/04/20 16:00 Venturi Mask 05/04/20 16:00 100.0 74 19 120/52 (74) 93 05/04/20 16:00 67 05/04/20 15:24 10.0 45 Status: awake, sedated Condition: improving HEENT: atraumatic Neck: full ROM Lungs: clear Heart: HR/BP stable Abdomen: soft, non-tender Extremities: no C/C/E Accucheck: 115 Critical Care - Subjective ROS Limited/Unobtainable: Yes Condition: critical EKG Rhythm: Sinus Rhythm FI02: 45 Vent Support Breath Rate: 18 Vent Support Mode: BiLevel Sputum Amount: Large Tube Feeding Amount: 50 I&O: Intake and Output 05/04/20 05/05/20 19:00 07:00 Intake Total 790 ml 700 ml Output Total 800 ml 650 ml Balance -10 ml 50 ml Free Water 240 ml 150 ml Tube Feeding 550 ml 550 ml Output Urine Total 800 ml 650 ml # Bowel Movements 2 CXR: left lung opened up. Labs: Laboratory Tests Test 05/04/20 16:55 05/04/20 20:13 05/04/20 20:45 05/05/20 00:00 POC Whole Blood Glucose 103 MG/DL (74-106) 108 MG/DL (74-106) H Magnesium Level 2.2 MG/DL (1.8-2.4) Stool Occult Blood Negative (NEGATIVE) Test 05/05/20 04:20 05/05/20 04:39 05/05/20 12:04 White Blood Count 8.9 K/UL (4.8-10.8) Red Blood Count 3.14 M/UL (4.70-6.10) L Hemoglobin 9.5 G/DL (14.2-18.0) L Hematocrit 30.1 % (42.0-52.0) L Mean Corpuscular Volume 96 FL (80-99) Mean Corpuscular Hemoglobin 30.2 PG (27.0-31.0) Mean Corpuscular Hemoglobin Concent 31.5 G/DL (32.0-36.0) L Red Cell Distribution Width 13.5 % (11.6-14.8) Platelet Count 250 K/UL (150-450) Mean Platelet Volume 6.4 FL (6.5-10.1) L Neutrophils (%) (Auto) 73.5 % (45.0-75.0) Lymphocytes (%) (Auto) 15.3 % (20.0-45.0) L Monocytes (%) (Auto) 6.8 % (1.0-10.0) Eosinophils (%) (Auto) 3.7 % (0.0-3.0) H Basophils (%) (Auto) 0.7 % (0.0-2.0) Sodium Level 142 MMOL/L (136-145) Potassium Level 4.9 MMOL/L (3.5-5.1) Chloride Level 110 MMOL/L (98-107) H Carbon Dioxide Level 29 MMOL/L (21-32) Anion Gap 3 mmol/L (5-15) L Blood Urea Nitrogen 22 mg/dL (7-18) H Creatinine 0.8 MG/DL (0.55-1.30) Estimat Glomerular Filtration Rate > 60 mL/min (>60) Glucose Level 109 MG/DL (74-106) H Calcium Level 7.6 MG/DL (8.5-10.1) L POC Whole Blood Glucose 124 MG/DL (74-106) H 115 MG/DL (74-106) H Luzmaria Downey MD May 05, 2020 12:37
--- NOTE | 2020-05-05 14:09 | Nephrology Progress Note ---
Assessment/Plan Problem List: (1) KORY (acute kidney injury) (2) Hypernatremia (3) Dehydration (4) Acute respiratory failure Assessment Patient presents with acute hypoxic respiratory failure requiring BiPAP Sepsis lactic acidosis KORY Dehydration, hypernatremia History of COPD Anemia Low BMI, malnutrition. BMI of 20.1 History of CVA History of diabetes mellitus Plan May 05: Labs reviewed. Renal parameters stable. Continue current management. Remains on Venturi mask. Remains full code. Calcium supplement discontinued May 04: Labs reviewed. Renal parameters are stable. Continue per current management. May 03: Labs reviewed. Renal parameters stable. Phosphorus supplement IV given. May 02: Serum sodium up to 144. Stable from renal standpoint of view. Continue per consultants. May 01: Serum serum sodium 136. Will stop D5W IV fluid. 1 dose of Lasix IV. Potassium supplement. Continue to monitor electrolytes. Continue per consultants. April 30: Serum sodium 146. Low phosphorus replaced. Continue pulmonary support and per consultants. April 29: Serum sodium normalized. Electrolytes within normal limit. Remains on nonrebreather mask. Continue per consultants. April 28: Continue D5W. Abnormal electrolytes addressed. Continue per consultants. Remains full code. Remains on nonrebreather mask. April 27: Continue D5W. Continue pulmonary support. Monitor renal parameters and electrolytes. Continue per consultants. Patient full code. Remains on nonrebreathing mask. Contreras catheter IV D5W Monitor electrolytes and renal parameters Antibiotics Avoid nephrotoxic's 2D echocardiogram Per orders Subjective ROS Limited/Unobtainable: Yes Objective Objective Last 24 Hour Vital Signs Date Time Temp Pulse Resp B/P (MAP) Pulse Ox O2 Delivery O2 Flow Rate FiO2 05/05/20 12:00 Venturi Mask 05/05/20 12:00 10.0 45 05/05/20 12:00 59 05/05/20 12:00 98.4 59 21 158/52 (87) 100 05/05/20 09:51 98 Venturi Mask 10.0 45 05/05/20 09:44 63 140/73 05/05/20 08:00 66 05/05/20 08:00 10.0 45 05/05/20 08:00 98.4 63 20 140/73 (95) 100 05/05/20 08:00 Venturi Mask 05/05/20 05:11 99.0 11/18/20 04:00 10.0 45 05/05/20 04:00 77 05/05/20 04:00 100.4 69 22 111/68 (82) 99 05/05/20 04:00 Venturi Mask 05/05/20 00:00 98.4 78 21 120/53 (75) 99 05/05/20 00:00 10.0 45 05/05/20 00:00 Venturi Mask 05/04/20 23:38 83 05/04/20 20:52 98.6 71 22 133/62 (85) 98 05/04/20 20:14 75 05/04/20 20:00 10.0 45 05/04/20 20:00 Venturi Mask 05/04/20 18:52 95 Venturi Mask 10.0 45 05/04/20 18:48 67 120/52 05/04/20 16:00 Venturi Mask 05/04/20 16:00 100.0 74 19 120/52 (74) 93 05/04/20 16:00 67 05/04/20 15:24 10.0 45 Intake and Output0 05/04/20 05/05/20 19:00 07:00 Intake Total 790 ml 750 ml Output Total 800 ml 650 ml Balance -10 ml 100 ml Free Water 240 ml 150 ml Tube Feeding 550 ml 600 ml Output Urine Total 800 ml 650 ml # Bowel Movements 2 Current Medications Medications (Trade) Dose Ordered Sig/Lopez Route PRN Reason Start Time Stop Time Status Last Admin Dose Admin Acetaminophen (Tylenol) 650 mg Q4H PRN ORAL fever 04/25/20 00:00 05/25/20 00:00 05/05/20 04:40 Apixaban (Eliquis) 5 mg BID ORAL 05/06/20 18:00 08/04/20 17:59 Apixaban (Eliquis) 10 mg BID ORAL 04/29/20 18:00 05/06/20 09:01 05/05/20 09:44 Chlorhexidine Gluconate (Arpita-Hex 2%) 1 applic DAILY@1999 TOPIC 04/29/20 20:00 07/28/20 19:59 05/04/20 20:14 Dextrose (Dextrose 50%) 25 ml Q30M PRN IV Hypoglycemia 04/25/20 00:00 07/24/20 00:00 Dextrose (Dextrose 50%) 50 ml Q30M PRN IV Hypoglycemia 04/25/20 00:00 07/24/20 00:00 Folic Acid (Folate) 1 mg DAILY ORAL 04/29/20 09:00 05/29/20 08:59 05/05/20 09:44 Insulin Aspart (NovoLOG) BEFORE MEALS AND HS SUBQ 04/25/20 06:30 07/24/20 06:29 04/28/20 06:22 Lamotrigine (LaMICtal) 25 mg DAILY ORAL 04/25/20 09:00 05/25/20 08:59 05/05/20 09:43 Memantine (Namenda) 5 mg TWICE A DAY ORAL 04/25/20 09:00 05/25/20 08:59 05/05/20 09:43 Metoprolol Tartrate (Lopressor) 50 mg BID GT 05/01/20 20:00 07/30/20 19:59 05/05/20 09:44 Olanzapine (ZyPREXA) 5 mg DAILY ORAL 04/25/20 09:00 06/09/20 08:59 05/05/20 09:43 Ondansetron HCl (Zofran) 4 mg Q6H PRN IVP Nausea & Vomiting 04/25/20 00:00 05/25/20 00:00 Polyethylene Glycol (Miralax) 17 gm DAILYPRN PRN ORAL Constipation 04/25/20 00:00 05/25/20 00:00 Potassium Chloride (K-Dur) 20 meq TWICE A DAY GT 05/01/20 12:15 07/30/20 12:14 05/05/20 09:44 Quetiapine Fumarate (SEROqueL) 50 mg Q12HR ORAL 04/27/20 11:30 06/11/20 11:29 05/05/20 09:44 Laboratory Tests 05/04/20 16:55: POC Whole Blood Glucose 103 05/04/20 20:13: POC Whole Blood Glucose 108H 05/04/20 20:45: Magnesium Level 2.2 05/05/20 00:00: Stool Occult Blood Negative 05/05/20 04:20: White Blood Count 8.9, Red Blood Count 3.14L, Hemoglobin 9.5L, Hematocrit 30.1L, Mean Corpuscular Volume 96, Mean Corpuscular Hemoglobin 30.2, Mean Corpuscular Hemoglobin Concent 31.5L, Red Cell Distribution Width 13.5, Platelet Count 250, Mean Platelet Volume 6.4L, Neutrophils (%) (Auto) 73.5, Lymphocytes (%) (Auto) 15.3L, Monocytes (%) (Auto) 6.8, Eosinophils (%) (Auto) 3.7H, Basophils (%) (Auto) 0.7, Sodium Level 142, Potassium Level 4.9, Chloride Level 110H, Carbon Dioxide Level 29, Anion Gap 3L, Blood Urea Nitrogen 22H, Creatinine 0.8, Estimat Glomerular Filtration Rate > 60, Glucose Level 109H, Calcium Level 7.6L 05/05/20 04:39: POC Whole Blood Glucose 124H 05/05/20 12:04: POC Whole Blood Glucose 115H Height (Feet): 6 Height (Inches): 0.00 Weight (Pounds): 148 General Appearance: no apparent distress EENT: other - On Venturi mask Cardiovascular: normal rate Respiratory/Chest: decreased breath sounds Abdomen: distended Maximino Castillo MD May 05, 2020 14:08
--- NOTE | 2020-05-05 15:42 | Psychiatry Consultation ---
Psychiatry Consultation Psychiatry Consultation Chief Complaint: Dyspnea/Respdistress History of Present Illness: 80-year-old male patient she still depressed confused he has respiratory failure declining cognition below his baseline as well as attending is requested daily psychiatric consultation Mental status examination: 72-year-old male appearance is disheveled attitude irritable agitated affect guarded and restricted intellect poor mood depressed anxious moderately psychomotor agitation attention is poor orientation x2 speech is low volume slurred thought process is present disorganized logical judgment is poor Allergies: Coded Allergies: No Known Allergies (Unverified , 06/11/17) Medication History Scheduled Amino Acids/Protein Hydrolys (Pro-Stat Liquid), 30 ML ORAL DAILY, (Reported) Aspirin (Aspirin EC), 81 MG ORAL DAILY, (Reported) Docusate Sodium* (Colace*), 100 MG ORAL DAILY, (Reported) Folic Acid* (Folic Acid*), 1 MG ORAL DAILY, (Reported) Heparin Sod (Porcine) (Heparin Sodium*), 5,000 UNITS SUBQ DAILY, (Reported) Lamotrigine* (Lamictal*), 25 MG ORAL DAILY, (Reported) Lisinopril (Lisinopril*), 20 MG ORAL BID, (Reported) Memantine Hcl* (Namenda*), 5 MG ORAL TWICE A DAY, (Reported) Multivitamin With Minerals (Multivitamins With Minerals*), 1 TAB ORAL DAILY, (Reported) Olanzapine* (Zyprexa*), 5 MG ORAL DAILY, (Reported) Sennosides (Senna), 2 TAB PO BEDTIME, (Reported) Scheduled PRN Acetaminophen* (Acetaminophen 325MG Tablet*), 650 MG ORAL Q4H PRN for Fever/Headache/Mild Pain, (Reported) Bisacodyl (Dulcolax), 10 MG RC for Constipation, (Reported) Hydralazine Hcl* (Hydralazine Hcl*), 10 MG ORAL Q4HR PRN for SBP > 160 , (Reported) Ipratropium/Albuterol Sulfate (DuoNeb 0.5-3(2.5)mg/3ml), 1 UNIT HHN EVERY 6 HOURS PRN for Shortness of Breath, (Reported) Magnesium Hydroxide* (Milk Of Magnesia*), 30 ML ORAL EVERY 6 HOURS PRN for Constipation, (Reported) Na Phos,M-B/Na Phos,Di-Ba* (Fleet Enema*), 133 ML RECTAL DAILY PRN for Constipation, (Reported) Nitroglycerin 0.4MG table* (Nitroglycerin*), 0.4 MG SL .Q5MIN X 3 DOSES PRN for CHEST PAIN, (Reported) Miscellaneous Medications Insulin Lispro (Humalog), 0 SUBQ, (Reported) Objective Data Height (Feet): 6 Height (Inches): 0.00 Weight (Pounds): 148 Assessment/Plan Assessment/Plan: Continue the patient on Lamictal, Zyprexa, Ativan and Namenda. 20min of insight oriented psychotherapy to help him recognize his psychical and cogintive deficits so that he has less depression and better impulse control. Diagnosis [place]: Schizoaffective bipolar type Dakota Monroe MD May 05, 2020 15:42
[2020-05-05 16:00] VITALS: BP 167/70
--- NOTE | 2020-05-05 16:06 | Diagnostic Imaging Report ---
Indication: Shortness of breath Technique: XRAY Chest 1v Comparison: 05/03/2020 Findings: Significantly improved aeration compared to the prior exam with reexpansion of the majority of the left lung. Some residual dense atelectasis/consolidation persists in the left base. There is been development of some patchy opacities at the right base. No pneumothorax. Heart size is within normal limits. NG tube remains in place. IMPRESSION: Significantly improved aeration of the left lung compared to one day prior. Residual dense atelectasis/consolidation of the left base. Interval development of some patchy opacities at the right base. Developing pneumonia not excluded. NG tube and PICC line remain in place.
--- NOTE | 2020-05-05 16:17 | NUR ---
NURSE NOTES:patient is hypertensive, paged Dr Whitney to let him know that patient BP is 167/70 and patient does not have PRN blood pressure medication. awaiting MD response.
--- NOTE | 2020-05-05 16:36 | NUR ---
NURSE NOTES:Dr Whitney gave TO/RB order for Clonidine 0.1MG TID PRN SBP>160.
[2020-05-05] MEDS ORDERED: Tubing IV Secondary IV ONE (18:37)
[2020-05-05] MEDS ORDERED: NS 275ml ONE (18:37)
--- NOTE | 2020-05-05 19:43 | NUR ---
NURSE HAND-OFF REPORT: Important Events on Shift: Patient Status: stable Diet: Glucerna 1.2@45 continuous Pending Orders: Pending Results/Labs: Pending MD notification: Latest Vital Signs: Temperature 98.6 , Pulse 76 , B/P 167 /70 , Respiratory Rate 21 , O2 SAT 98 , Venturi Mask, O2 Flow Rate 6.0 . Vital Sign Comment: EKG Rhythm: Sinus Rhythm Rhythm change?: N MD Notified?: N -Dr. Devonte SAAVEDRA Response: No New Orders Received Latest Andersen Fall Score: 70 Fall Risk: High Risk Safety Measures: Call light Within Reach, Bed Alarm Zone 2, Side Rails Side Rails x3, Bed position Low and Locked. Fall Precautions: Yellow Socks Yellow Gown Door Sign Patient Fall Education Report given to CRUZ Roque.
--- NOTE | 2020-05-05 19:44 | NUR ---
NURSE NOTES: Report received from CRUZ Segura Pt observed with flat affect, disoriented, awake. Decerebrate on left extremities. PERRLA. 5-lead EKG shows SR at 73 BPM. Vitals WNL. Running lowgrade temperature of 99.1. Made aware of orders to notify Dr. Loving if fever. Observed to be on Venturi mask saturating 99% on settings of 10L 45% fiO2. Pt left NGT running Glucerna 1.2 at 50 mL - auscultated for placement. Contreras draining well to gravity. Bed kept in lowest and locked position. Bed alarm on. Will monitor.
[2020-05-05 20:00] VITALS: BP 115/55
[2020-05-05] MEDS: Dyna-Hex 2% Top Sol 2oz TOPIC SCH (21:14)
[2020-05-06] VITALS: BP 125/59
--- NOTE | 2020-05-06 03:30 | NUR ---
NURSE NOTES: d/w RT Mayte; weaned pt from Venturi mask to 2L humidified o2 saturating 100% Combative throughout the night during personal care despite all needs met Pt in stable condition. Vitals WNL; Afebrile.
[2020-05-06 04:00] VITALS: BP 116/61
[2020-05-06] MEDS: NovoLOG Insulin Flexpen SUBQ SCH ×4 (05:43→21:00)
[2020-05-06 06:00] LABS: HEMATOCRIT 29.6 % (42.0-52.0); HEMOGLOBIN 9.3 G/DL (14.2-18.0); MEAN CORPUSCULAR VOLUME 97 FL (80-99); PLATELET COUNT 264 K/UL (150-450); RED BLOOD COUNT 3.05 M/UL (4.70-6.10); RED CELL DISTRIBUTION WIDTH 13.4 % (11.6-14.8); WHITE BLOOD COUNT 6.9 K/UL (4.8-10.8)
[2020-05-06 06:19] LABS: ANION GAP 3 mmol/L (5-15); BLOOD UREA NITROGEN 24 mg/dL (7-18); CALCIUM 7.6 MG/DL (8.5-10.1); CARBON DIOXIDE 29 MMOL/L (21-32); CHLORIDE 110 MMOL/L (98-107); CREATININE 0.6 MG/DL (0.55-1.30); POTASSIUM 4.4 MMOL/L (3.5-5.1); SODIUM 142 MMOL/L (136-145)
[2020-05-06 06:29] LABS: ALANINE AMINOTRANSFERASE 29 U/L (12-78); ALBUMIN 1.4 G/DL (3.4-5.0); ALKALINE PHOSPHATASE 76 U/L (46-116); ASPARTATE AMINO TRANSFERASE 31 U/L (15-37); BILIRUBIN,DIRECT 0.1 MG/DL (0.0-0.3); BILIRUBIN,TOTAL 0.3 MG/DL (0.2-1.0); PHOSPHORUS 3.3 MG/DL (2.5-4.9)
--- NOTE | 2020-05-06 06:38 | Hematology/Onc Progress Note ---
Assessment/Plan Assessment/Plan # Bilateral pulmonary emboli on cta as well as Dvt on duplex --> Equivocal evidence of right heart strain; RV /LV ratio around 0.5 but is somewhat difficult to assess due to ventricular muscle hypertrophy --> duplex Positive for bilateral lower extremity deep venous thrombosis, as described --> continue on heparin gtt until stabilizes, then consider noac --> 04/29 started on eliquis # Anemia of chronic disease, anemia panel is noted --> r/o bleed, is on anticoag --> hgb 10-->8.7-->8.5-->9.4-->9.7-->>9.5 -> no hemolysis is noted # Leukocytosis due to sepsis/uti --> ABX Cefepime/vanc-->off --> smear is reviewed # COPD. --> breathing rx as needed # Diabetes mellitus --> iss, accuchecks qac and qhs # Schizophrenia. --> per psych recs # History of CVA with left hemiparesis. # Dementia. # Dysphagia with ngt # Folate def # Dvt ppx eliquis Appreciate consultation and jorge l Rn Subjective HEENT: Denies: no symptoms, eye pain, blurred vision, tearing, double vision, ear pain, ear discharge, nose pain, nose congestion, throat pain, throat swelling, mouth pain, mouth swelling, other Cardiovascular: Denies: no symptoms, chest pain, edema, irregular heart rate, lightheadedness, palpitations, syncope, other Genitourinary: Denies: no symptoms, burning, discharge, frequency, flank pain, hematuria, incontinence, pain, urgency, other Neurologic/Psychiatric: Denies: no symptoms, anxiety, depressed, emotional problems, headache, numbness, paresthesia, pre-existing deficit, seizure, tingling, tremors, weakness, other Endocrine: Denies: no symptoms, excessive sweating, flushing, intolerance to cold, intolerance to heat, increased hunger, increased thirst, increased urine, unexplained weight gain, unexplained weight loss, other Hematologic/Lymphatic: Denies: no symptoms, anemia, easy bleeding, easy bruising, adenopathy, other Allergies: Coded Allergies: No Known Allergies (Unverified , 06/11/17) Subjective 04/29 remains on heparin gtt, labs noted, no bleeding, h/h stable, on folate 04/30 meds noted, changed to apixaban, labs noted 05/02 asleep, no bleeding, meds noted, labs reviewed, on noac 05/03 is asleep, no bleeding, no night sweats reported, cbc noted 05/04 remains lethargic, hgb 9.7, no bleeding, meds noted 05/05 labs reviewed, hgb 9.5, dressing changes, no events is combative overnight, is on 2lnc, apixaban Objective Objective Current Medications Medications (Trade) Dose Ordered Sig/Lopez Route PRN Reason Start Time Stop Time Status Last Admin Dose Admin Acetaminophen (Tylenol) 650 mg Q4H PRN ORAL fever 04/25/20 00:00 05/25/20 00:00 05/05/20 04:40 Apixaban (Eliquis) 5 mg BID ORAL 05/06/20 18:00 08/04/20 17:59 Apixaban (Eliquis) 10 mg BID ORAL 04/29/20 18:00 05/06/20 09:01 05/05/20 17:00 Chlorhexidine Gluconate (Arpita-Hex 2%) 1 applic DAILY@2000 TOPIC 04/29/20 20:00 07/28/20 19:59 05/05/20 21:14 Clonidine HCl (Catapres Tab) 0.1 mg Q8H PRN GT For High Blood Pressure 05/05/20 16:45 08/03/20 16:44 Dextrose (Dextrose 50%) 25 ml Q30M PRN IV Hypoglycemia 04/25/20 00:00 07/24/20 00:00 Dextrose (Dextrose 50%) 50 ml Q30M PRN IV Hypoglycemia 04/25/20 00:00 07/24/20 00:00 Folic Acid (Folate) 1 mg DAILY ORAL 04/29/20 09:00 05/29/20 08:59 05/05/20 09:44 Insulin Aspart (NovoLOG) BEFORE MEALS AND HS SUBQ 04/25/20 06:30 07/24/20 06:29 04/28/20 06:22 Lamotrigine (LaMICtal) 25 mg DAILY ORAL 04/25/20 09:00 05/25/20 08:59 05/05/20 09:43 Memantine (Namenda) 5 mg TWICE A DAY ORAL 04/25/20 09:00 05/25/20 08:59 05/05/20 17:00 Metoprolol Tartrate (Lopressor) 50 mg BID GT 05/01/20 20:00 07/30/20 19:59 05/05/20 17:00 Olanzapine (ZyPREXA) 5 mg DAILY ORAL 04/25/20 09:00 06/09/20 08:59 05/05/20 09:43 Ondansetron HCl (Zofran) 4 mg Q6H PRN IVP Nausea & Vomiting 04/25/20 00:00 05/25/20 00:00 Polyethylene Glycol (Miralax) 17 gm DAILYPRN PRN ORAL Constipation 04/25/20 00:00 05/25/20 00:00 Quetiapine Fumarate (SEROqueL) 50 mg Q12HR ORAL 04/27/20 11:30 06/11/20 11:29 05/05/20 21:14 Last 24 Hour Vital Signs Date Time Temp Pulse Resp B/P (MAP) Pulse Ox O2 Delivery O2 Flow Rate FiO2 05/06/20 04:00 10.0 45 05/06/20 04:00 Venturi Mask 05/06/20 04:00 74 05/06/20 04:00 98.0 74 16 116/61 (79) 100 05/06/20 03:26 97 Nasal Cannula 2.0 28 05/06/20 00:00 98.1 70 20 125/59 (81) 100 05/06/20 00:00 Venturi Mask 05/05/20 23:32 73 05/05/20 20:00 67 05/05/20 20:00 Venturi Mask 05/05/20 20:00 99.1 61 16 115/55 (75) 100 05/05/20 20:00 Venturi Mask 05/05/20 20:00 10.0 45 05/05/20 19:15 98 Venturi Mask 6.0 31 05/05/20 17:00 76 167/70 05/05/20 16:00 76 05/05/20 16:00 Venturi Mask 05/05/20 16:00 10.0 45 05/05/20 16:00 98.6 63 21 167/70 (102) 100 05/05/20 12:00 Venturi Mask 05/05/20 12:00 10.0 45 05/05/20 12:00 59 05/05/20 12:00 98.4 59 21 158/52 (87) 100 05/05/20 09:51 98 Venturi Mask 10.0 45 05/05/20 09:44 63 140/73 05/05/20 08:00 66 05/05/20 08:00 10.0 45 05/05/20 08:00 98.4 63 20 140/73 (95) 100 05/05/20 08:00 Venturi Mask 05/05/20 05:11 99.0 05/05/20 04:00 10.0 45 05/05/20 04:00 77 05/05/20 04:00 100.4 69 22 111/68 (82) 99 05/05/20 04:00 Venturi Mask 05/05/20 00:00 98.4 78 21 120/53 (75) 99 05/05/20 00:00 10.0 45 05/05/20 00:00 Venturi Mask 05/04/20 23:38 83 05/04/20 20:52 98.6 71 22 133/62 (85) 98 05/04/20 20:14 75 05/04/20 20:00 10.0 45 05/04/20 20:00 Venturi Mask 05/04/20 18:52 95 Venturi Mask 10.0 45 05/04/20 18:48 67 120/52 05/04/20 16:00 Venturi Mask 05/04/20 16:00 100.0 74 19 120/52 (74) 93 05/04/20 16:00 67 05/04/20 15:24 10.0 45 05/04/20 12:00 67 05/04/20 11:51 10.0 45 05/04/20 11:49 Venturi Mask 05/04/20 11:37 98.2 56 24 103/51 (68) 98 05/04/20 10:05 83 127/70 05/04/20 08:00 97.2 83 24 127/70 (89) 100 05/04/20 08:00 10.0 45 05/04/20 08:00 Venturi Mask 05/04/20 08:00 80 05/04/20 07:05 97 Venturi Mask 10.0 45 Intake and Output 05/05/20 05/06/20 19:00 07:00 Intake Total 990 ml 550 ml Output Total 400 ml 300 ml Balance 590 ml 250 ml Free Water 340 ml Tube Feeding 650 ml 550 ml Output Urine Total 400 ml 300 ml Labs Test 05/03/20 10:25 05/03/20 11:33 05/03/20 17:09 05/03/20 20:19 Arterial Blood pH 7.457 (7.350-7.450) Arterial Blood Partial Pressure CO2 32.0 mmHg (35.0-45.0) Arterial Blood Partial Pressure O2 131.2 mmHg (75.0-100.0) Arterial Blood HCO3 22.1 mmol/L (22.0-26.0) Arterial Blood Oxygen Saturation 98.6 % (95-100) Arterial Blood Base Excess -1.2 (-2-2) Pepe Test Positive POC Whole Blood Glucose 109 MG/DL (74-106) 118 MG/DL (74-106) Test 05/04/20 03:30 05/04/20 05:01 05/04/20 11:40 05/04/20 16:55 White Blood Count 8.2 K/UL (4.8-10.8) Red Blood Count 3.16 M/UL (4.70-6.10) Hemoglobin 9.7 G/DL (14.2-18.0) Hematocrit 30.1 % (42.0-52.0) Mean Corpuscular Volume 95 FL (80-99) Mean Corpuscular Hemoglobin 30.8 PG (27.0-31.0) Mean Corpuscular Hemoglobin Concent 32.3 G/DL (32.0-36.0) Red Cell Distribution Width 13.9 % (11.6-14.8) Platelet Count 228 K/UL (150-450) Mean Platelet Volume 6.5 FL (6.5-10.1) Neutrophils (%) (Auto) 74.7 % (45.0-75.0) Lymphocytes (%) (Auto) 15.1 % (20.0-45.0) Monocytes (%) (Auto) 5.9 % (1.0-10.0) Eosinophils (%) (Auto) 3.9 % (0.0-3.0) Basophils (%) (Auto) 0.5 % (0.0-2.0) Sodium Level 142 MMOL/L (136-145) Potassium Level 4.5 MMOL/L (3.5-5.1) Chloride Level 111 MMOL/L (98-107) Carbon Dioxide Level 26 MMOL/L (21-32) Anion Gap 5 mmol/L (5-15) Blood Urea Nitrogen 21 mg/dL (7-18) Creatinine 0.7 MG/DL (0.55-1.30) Estimat Glomerular Filtration Rate > 60 mL/min (>60) Glucose Level 119 MG/DL (74-106) Calcium Level 7.5 MG/DL (8.5-10.1) POC Whole Blood Glucose 126 MG/DL (74-106) 118 MG/DL (74-106) 103 MG/DL (74-106) Test 05/04/20 20:13 05/04/20 20:45 05/05/20 00:00 05/05/20 04:20 POC Whole Blood Glucose 108 MG/DL (74-106) Magnesium Level 2.2 MG/DL (1.8-2.4) Stool Occult Blood Negative (NEGATIVE) White Blood Count 8.9 K/UL (4.8-10.8) Red Blood Count 3.14 M/UL (4.70-6.10) Hemoglobin 9.5 G/DL (14.2-18.0) Hematocrit 30.1 % (42.0-52.0) Mean Corpuscular Volume 96 FL (80-99) Mean Corpuscular Hemoglobin 30.2 PG (27.0-31.0) Mean Corpuscular Hemoglobin Concent 31.5 G/DL (32.0-36.0) Red Cell Distribution Width 13.5 % (11.6-14.8) Platelet Count 250 K/UL (150-450) Mean Platelet Volume 6.4 FL (6.5-10.1) Neutrophils (%) (Auto) 73.5 % (45.0-75.0) Lymphocytes (%) (Auto) 15.3 % (20.0-45.0) Monocytes (%) (Auto) 6.8 % (1.0-10.0) Eosinophils (%) (Auto) 3.7 % (0.0-3.0) Basophils (%) (Auto) 0.7 % (0.0-2.0) Sodium Level 142 MMOL/L (136-145) Potassium Level 4.9 MMOL/L (3.5-5.1) Chloride Level 110 MMOL/L (98-107) Carbon Dioxide Level 29 MMOL/L (21-32) Anion Gap 3 mmol/L (5-15) Blood Urea Nitrogen 22 mg/dL (7-18) Creatinine 0.8 MG/DL (0.55-1.30) Estimat Glomerular Filtration Rate > 60 mL/min (>60) Glucose Level 109 MG/DL (74-106) Calcium Level 7.6 MG/DL (8.5-10.1) Test 05/05/20 04:39 05/05/20 12:04 05/05/20 16:31 05/05/20 21:16 POC Whole Blood Glucose 124 MG/DL (74-106) 115 MG/DL (74-106) 111 MG/DL (74-106) 112 MG/DL (74-106) Test 05/06/20 04:50 05/06/20 04:55 White Blood Count 6.9 K/UL (4.8-10.8) Red Blood Count 3.05 M/UL (4.70-6.10) Hemoglobin 9.3 G/DL (14.2-18.0) Hematocrit 29.6 % (42.0-52.0) Mean Corpuscular Volume 97 FL (80-99) Mean Corpuscular Hemoglobin 30.5 PG (27.0-31.0) Mean Corpuscular Hemoglobin Concent 31.5 G/DL (32.0-36.0) Red Cell Distribution Width 13.4 % (11.6-14.8) Platelet Count 264 K/UL (150-450) Mean Platelet Volume 6.7 FL (6.5-10.1) Neutrophils (%) (Auto) % (45.0-75.0) Lymphocytes (%) (Auto) % (20.0-45.0) Monocytes (%) (Auto) % (1.0-10.0) Eosinophils (%) (Auto) % (0.0-3.0) Basophils (%) (Auto) % (0.0-2.0) Sodium Level 142 MMOL/L (136-145) Potassium Level 4.4 MMOL/L (3.5-5.1) Chloride Level 110 MMOL/L (98-107) Carbon Dioxide Level 29 MMOL/L (21-32) Anion Gap 3 mmol/L (5-15) Blood Urea Nitrogen 24 mg/dL (7-18) Creatinine 0.6 MG/DL (0.55-1.30) Estimat Glomerular Filtration Rate > 60 mL/min (>60) Glucose Level 119 MG/DL (74-106) Calcium Level 7.6 MG/DL (8.5-10.1) Phosphorus Level 3.3 MG/DL (2.5-4.9) Magnesium Level 2.2 MG/DL (1.8-2.4) Total Bilirubin 0.3 MG/DL (0.2-1.0) Direct Bilirubin 0.1 MG/DL (0.0-0.3) Aspartate Amino Transf (AST/SGOT) 31 U/L (15-37) Alanine Aminotransferase (ALT/SGPT) 29 U/L (12-78) Alkaline Phosphatase 76 U/L (46-116) Total Protein 4.6 G/DL (6.4-8.2) Albumin 1.4 G/DL (3.4-5.0) POC Whole Blood Glucose 100 MG/DL (74-106) Height (Feet): 6 Height (Inches): 0.00 Weight (Pounds): 148 Sree Dubon MD May 06, 2020 06:38
--- NOTE | 2020-05-06 07:32 | Infectious Diseases Prog Note ---
Assessment/Plan 80yo M with: Fever x1 05/05 05/05 BCx p CXR: Significantly improved aeration of the left lung compared to one day prior. Residual dense atelectasis/consolidation of the left base. Interval development of some patchy opacities at the right base. Developing pneumonia not excluded. Sepsis UTI -u/a wbc 50-60, nit neg, leuk +1; ucx Neg Gram positive bacteremia- m/l contaminant -04/24 sp cx 1/2 S. epi; 04/26 Bcx NTD Fever; SP No leukocytosis -04/26 influenza screen neg CXR: Borderline cardiomegaly. No acute process -04/24 CXR: No acute cardiopulmonary disease. covid rapid PCR neg Acute hypoxic resp failure- SP NRB>Bipap> VM . BiPAP B/l DVT and PE -CTA chest: Positive for bilateral pulmonary emboli Equivocal evidence of right heart strain; RV /LV ratio around 0.5 but is somewhat difficult to assess due to ventricular muscle hypertrophy. Left basilar compressive atelectasis, pleural fluid, and possibly some consolidation. Trace right pleural fluid. Subtle mosaic perfusion pattern, nonspecific but probably represents very mild pulmonary edema. Cardiomegaly. Nasogastric tube -V. duplex: : On the right, occlusive thrombus is seen within the downstream common femoral vein, the femoral vein, popliteal vein as well as within multiple calf veins. On the left, occlusive thrombus is seen within the femoral vein and popliteal vein the common femoral vein and calf veins are patent. COPD DM2 HTN schizophrenia malnutrition CVA w/ left spastic hemiparesis vascular dementia schizoaffective-bipolar type SNF resident (Everette peterson) Plan: Cont to monitor off abx F/u BCx 05/05 Trend temp curve closely, if continues to fever will start Zosyn 05/01 SP cefepime #8 04/30 SP vanco IV #6 -f/u cx -Monitor CBC/CMP, temperatures -aspiration precautions D/w RN Thank you for consulting [facility]. Will continue to follow along with you. Subjective Allergies: Coded Allergies: No Known Allergies (Unverified , 06/11/17) AF x24hrs WBC 6.9 NAD in bed Objective Last 24 Hour Vital Signs Date Time Temp Pulse Resp B/P (MAP) Pulse Ox O2 Delivery O2 Flow Rate FiO2 05/06/20 07:29 100 Nasal Cannula 2.0 28 11/19/20 04:00 10.0 45 05/06/20 04:00 Venturi Mask 05/06/20 04:00 74 05/06/20 04:00 98.0 74 16 116/61 (79) 100 05/06/20 03:26 97 Nasal Cannula 2.0 28 05/06/20 00:00 98.1 70 20 125/59 (81) 100 05/06/20 00:00 Venturi Mask 05/05/20 23:32 73 05/05/20 20:00 67 05/05/20 20:00 Venturi Mask 05/05/20 20:00 99.1 61 16 115/55 (75) 100 05/05/20 20:00 Venturi Mask 05/05/20 20:00 10.0 45 05/05/20 19:15 98 Venturi Mask 6.0 31 05/05/20 17:00 76 167/70 05/05/20 16:00 76 05/05/20 16:00 Venturi Mask 05/05/20 16:00 10.0 45 05/05/20 16:00 98.6 63 21 167/70 (102) 100 05/05/20 12:00 Venturi Mask 05/05/20 12:00 10.0 45 05/05/20 12:00 59 05/05/20 12:00 98.4 59 21 158/52 (87) 100 05/05/20 09:51 98 Venturi Mask 10.0 45 05/05/20 09:44 63 140/73 05/05/20 08:00 66 05/05/20 08:00 10.0 45 05/05/20 08:00 98.4 63 20 140/73 (95) 100 05/05/20 08:00 Venturi Mask Height (Feet): 6 Height (Inches): 0.00 Weight (Pounds): 148 Gen: NAD in bed HEENT: NCAT on Venti mask CV: RRR Pulm: CTAB Abd: Soft, NTND Ext: No c/c/e Neuro: Sleeping Laboratory Tests Test 05/05/20 12:04 05/05/20 16:31 05/05/20 21:16 05/06/20 04:50 POC Whole Blood Glucose 115 MG/DL (74-106) H 111 MG/DL (74-106) H 112 MG/DL (74-106) H White Blood Count 6.9 K/UL (4.8-10.8) Red Blood Count 3.05 M/UL (4.70-6.10) L Hemoglobin 9.3 G/DL (14.2-18.0) L Hematocrit 29.6 % (42.0-52.0) L Mean Corpuscular Volume 97 FL (80-99) Mean Corpuscular Hemoglobin 30.5 PG (27.0-31.0) Mean Corpuscular Hemoglobin Concent 31.5 G/DL (32.0-36.0) L Red Cell Distribution Width 13.4 % (11.6-14.8) Platelet Count 264 K/UL (150-450) Mean Platelet Volume 6.7 FL (6.5-10.1) Neutrophils (%) (Auto) % (45.0-75.0) Lymphocytes (%) (Auto) % (20.0-45.0) Monocytes (%) (Auto) % (1.0-10.0) Eosinophils (%) (Auto) % (0.0-3.0) Basophils (%) (Auto) % (0.0-2.0) Neutrophils % (Manual) Pending Lymphocytes % (Manual) Pending Platelet Estimate Pending Platelet Morphology Pending Sodium Level 142 MMOL/L (136-145) Potassium Level 4.4 MMOL/L (3.5-5.1) Chloride Level 110 MMOL/L (98-107) H Carbon Dioxide Level 29 MMOL/L (21-32) Anion Gap 3 mmol/L (5-15) L Blood Urea Nitrogen 24 mg/dL (7-18) H Creatinine 0.6 MG/DL (0.55-1.30) Estimat Glomerular Filtration Rate > 60 mL/min (>60) Glucose Level 119 MG/DL (74-106) H Calcium Level 7.6 MG/DL (8.5-10.1) L Phosphorus Level 3.3 MG/DL (2.5-4.9) Magnesium Level 2.2 MG/DL (1.8-2.4) Total Bilirubin 0.3 MG/DL (0.2-1.0) Direct Bilirubin 0.1 MG/DL (0.0-0.3) Aspartate Amino Transf (AST/SGOT) 31 U/L (15-37) Alanine Aminotransferase (ALT/SGPT) 29 U/L (12-78) Alkaline Phosphatase 76 U/L (46-116) Total Protein 4.6 G/DL (6.4-8.2) L Albumin 1.4 G/DL (3.4-5.0) L Test 05/06/20 04:55 POC Whole Blood Glucose 100 MG/DL (74-106) Current Medications Medications (Trade) Dose Ordered Sig/Lopez Route PRN Reason Start Time Stop Time Status Last Admin Dose Admin Acetaminophen (Tylenol) 650 mg Q4H PRN ORAL fever 04/25/20 00:00 05/25/20 00:00 05/05/20 04:40 Apixaban (Eliquis) 5 mg BID ORAL 05/06/20 18:00 08/04/20 17:59 Apixaban (Eliquis) 10 mg BID ORAL 04/29/20 18:00 05/06/20 09:01 05/05/20 17:00 Chlorhexidine Gluconate (Arpita-Hex 2%) 1 applic DAILY@1999 TOPIC 04/29/20 20:00 07/28/20 19:59 05/05/20 21:14 Clonidine HCl (Catapres Tab) 0.1 mg Q8H PRN GT For High Blood Pressure 05/05/20 16:45 08/03/20 16:44 Dextrose (Dextrose 50%) 25 ml Q30M PRN IV Hypoglycemia 04/25/20 00:00 07/24/20 00:00 Dextrose (Dextrose 50%) 50 ml Q30M PRN IV Hypoglycemia 04/25/20 00:00 07/24/20 00:00 Folic Acid (Folate) 1 mg DAILY ORAL 04/29/20 09:00 05/29/20 08:59 05/05/20 09:44 Insulin Aspart (NovoLOG) BEFORE MEALS AND HS SUBQ 04/25/20 06:30 07/24/20 06:29 04/28/20 06:22 Lamotrigine (LaMICtal) 25 mg DAILY ORAL 04/25/20 09:00 05/25/20 08:59 05/05/20 09:43 Memantine (Namenda) 5 mg TWICE A DAY ORAL 04/25/20 09:00 05/25/20 08:59 05/05/20 17:00 Metoprolol Tartrate (Lopressor) 50 mg BID GT 05/01/20 20:00 07/30/20 19:59 05/05/20 17:00 Olanzapine (ZyPREXA) 5 mg DAILY ORAL 04/25/20 09:00 06/09/20 08:59 05/05/20 09:43 Ondansetron HCl (Zofran) 4 mg Q6H PRN IVP Nausea & Vomiting 04/25/20 00:00 05/25/20 00:00 Polyethylene Glycol (Miralax) 17 gm DAILYPRN PRN ORAL Constipation 04/25/20 00:00 05/25/20 00:00 Quetiapine Fumarate (SEROqueL) 50 mg Q12HR ORAL 04/27/20 11:30 06/11/20 11:29 05/05/20 21:14 Raina Loving M.D. May 06, 2020 07:32
--- NOTE | 2020-05-06 07:38 | NUR ---
NURSE HAND-OFF REPORT: Important Events on Shift: Weaned off Venti Mask to NC Patient Status: Stable Diet: Glucerna 1.2 Pending Orders: N Pending Results/Labs: N Pending notification: N Latest Vital Signs: Temperature 98.0 , Pulse 74 , B/P 116 /61 , Respiratory Rate 16 , O2 SAT 100 , Venturi Mask, O2 Flow Rate 2.0 . Vital Sign Comment: WNL EKG Rhythm: Sinus Rhythm Rhythm change?: N MD Notified?: N -Dr. Devonte SAAVEDRA Response: No New Orders Received Latest Andersen Fall Score: 70 Fall Risk: High Risk Safety Measures: Call light Within Reach, Bed Alarm Zone 2, Side Rails Side Rails x3, Bed position Low and Locked. Fall Precautions: Yellow Socks Yellow Gown Door Sign Patient Fall Education Report given to CRUZ Lassiter.
--- NOTE | 2020-05-06 07:47 | NUR ---
NURSE NOTES: Received report from CRUZ Romo. Patient in bed resting, no active s/s cardiac, respiratory distress noticed at this time. Patient open eyes, does not follow command. Patient on 2L oxygen via NC, O2 sat 100%. Patient on NGT feeding, Glucerna 1.2 @ 50ml/h. Contreras Catheter draining well to gravity at this time. IV on left FA 20G, right upper arm PICC line patent, intact. Bilateral lower extremities, warm to touch, cap refill <3 sec. Bed in lowest position, left chest up position, side rails upx2, call light within reach, bed alarm on, Will continue to monitor.
[2020-05-06 08:00] VITALS: BP 106/52
[2020-05-06] MEDS: Eliquis 5mg tablet ORAL SCH ×2 (08:45→17:27)
[2020-05-06] MEDS: Metoprolol Tartrate 50mg tab GT SCH ×2 (08:46→17:28)
[2020-05-06] MEDS: Memantine 10mg tab ORAL SCH ×2 (08:46→17:28)
--- NOTE | 2020-05-06 10:44 | Pulmonology Progress Note ---
Subjective ROS Limited/Unobtainable: Yes Constitutional: Reports: no symptoms HEENT: Repors: no symptoms Allergies: Coded Allergies: No Known Allergies (Unverified , 06/11/17) All Systems: reviewed and negative except above Objective Last 24 Hour Vital Signs Date Time Temp Pulse Resp B/P (MAP) Pulse Ox O2 Delivery O2 Flow Rate FiO2 05/06/20 08:46 75 106/52 05/06/20 08:00 99.7 75 16 106/52 (70) 100 05/06/20 07:29 100 Nasal Cannula 2.0 28 05/06/20 04:00 10.0 45 05/06/20 04:00 Venturi Mask 05/06/20 04:00 74 05/06/20 04:00 98.0 74 16 116/61 (79) 100 05/06/20 03:26 97 Nasal Cannula 2.0 28 05/06/20 00:00 98.1 70 20 125/59 (81) 100 05/06/20 00:00 Venturi Mask 05/05/20 23:32 73 05/05/20 20:00 67 05/05/20 20:00 Venturi Mask 05/05/20 20:00 99.1 61 16 115/55 (75) 100 05/05/20 20:00 Venturi Mask 05/05/20 20:00 10.0 45 05/05/20 19:15 98 Venturi Mask 6.0 31 05/05/20 17:00 76 167/70 05/05/20 16:00 76 05/05/20 16:00 Venturi Mask 05/05/20 16:00 10.0 45 05/05/20 16:00 98.6 63 21 167/70 (102) 100 05/05/20 12:00 Venturi Mask 05/05/20 12:00 10.0 45 05/05/20 12:00 59 05/05/20 12:00 98.4 59 21 158/52 (87) 100 Intake and Output 05/05/20 05/06/20 19:00 07:00 Intake Total 990 ml 550 ml Output Total 400 ml 300 ml Balance 590 ml 250 ml Free Water 340 ml Tube Feeding 650 ml 550 ml Output Urine Total 400 ml 300 ml General Appearance: cachetic Respiratory: chest wall non-tender, rhonchi - left, rhonchi - right Cardiovascular: normal peripheral pulses, normal rate, regular rhythm Abdomen: normal bowel sounds, soft, non tender, non distended Laboratory Tests 05/05/20 12:04: POC Whole Blood Glucose 115H 05/05/20 16:31: POC Whole Blood Glucose 111H 05/05/20 21:16: POC Whole Blood Glucose 112H 05/06/20 04:50: White Blood Count 6.9, Red Blood Count 3.05L, Hemoglobin 9.3L, Hematocrit 29.6L, Mean Corpuscular Volume 97, Mean Corpuscular Hemoglobin 30.5, Mean Corpuscular Hemoglobin Concent 31.5L, Red Cell Distribution Width 13.4, Platelet Count 264, Mean Platelet Volume 6.7, Neutrophils (%) (Auto) , Lymphocytes (%) (Auto) , Monocytes (%) (Auto) , Eosinophils (%) (Auto) , Basophils (%) (Auto) , Differential Total Cells Counted 100, Neutrophils % (Manual) 70, Lymphocytes % (Manual) 15L, Monocytes % (Manual) 7, Eosinophils % (Manual) 7H, Basophils % (Manual) 1, Band Neutrophils 0, Platelet Estimate Adequate, Platelet Morphology Normal, Hypochromasia 1+, Macrocytosis 1+, Sodium Level 142, Potassium Level 4.4, Chloride Level 110H, Carbon Dioxide Level 29, Anion Gap 3L, Blood Urea Nitrogen 24H, Creatinine 0.6, Estimat Glomerular Filtration Rate > 60, Glucose Level 119H, Calcium Level 7.6L, Phosphorus Level 3.3, Magnesium Level 2.2, Total Bilirubin 0.3, Direct Bilirubin 0.1, Aspartate Amino Transf (AST/SGOT) 31, Alanine Aminotransferase (ALT/SGPT) 29, Alkaline Phosphatase 76, Total Protein 4.6L, Albumin 1.4L 05/06/20 04:55: POC Whole Blood Glucose 100 Current Medications Medications (Trade) Dose Ordered Sig/Lopez Route PRN Reason Start Time Stop Time Status Last Admin Dose Admin Acetaminophen (Tylenol) 650 mg Q4H PRN ORAL fever 04/25/20 00:00 05/25/20 00:00 05/05/20 04:40 Apixaban (Eliquis) 5 mg BID ORAL 05/06/20 18:00 08/04/20 17:59 Chlorhexidine Gluconate (Arpita-Hex 2%) 1 applic DAILY@1999 TOPIC 04/29/20 20:00 07/28/20 19:59 05/05/20 21:14 Clonidine HCl (Catapres Tab) 0.1 mg Q8H PRN GT For High Blood Pressure 05/05/20 16:45 08/03/20 16:44 Dextrose (Dextrose 50%) 25 ml Q30M PRN IV Hypoglycemia 04/25/20 00:00 07/24/20 00:00 Dextrose (Dextrose 50%) 50 ml Q30M PRN IV Hypoglycemia 04/25/20 00:00 07/24/20 00:00 Folic Acid (Folate) 1 mg DAILY ORAL 04/29/20 09:00 05/29/20 08:59 05/06/20 08:46 Insulin Aspart (NovoLOG) BEFORE MEALS AND HS SUBQ 04/25/20 06:30 07/24/20 06:29 04/28/20 06:22 Lamotrigine (LaMICtal) 25 mg DAILY ORAL 04/25/20 09:00 05/25/20 08:59 05/06/20 08:46 Memantine (Namenda) 5 mg TWICE A DAY ORAL 04/25/20 09:00 05/25/20 08:59 05/06/20 08:46 Metoprolol Tartrate (Lopressor) 50 mg BID GT 05/01/20 20:00 07/30/20 19:59 05/06/20 08:46 Olanzapine (ZyPREXA) 5 mg DAILY ORAL 04/25/20 09:00 06/09/20 08:59 05/06/20 08:45 Ondansetron HCl (Zofran) 4 mg Q6H PRN IVP Nausea & Vomiting 04/25/20 00:00 05/25/20 00:00 Polyethylene Glycol (Miralax) 17 gm DAILYPRN PRN ORAL Constipation 04/25/20 00:00 05/25/20 00:00 Quetiapine Fumarate (SEROqueL) 50 mg Q12HR ORAL 04/27/20 11:30 06/11/20 11:29 05/06/20 08:45 Assessment/Plan Problems: (1) Acute encephalopathy (2) Acute massive pulmonary embolism (3) Acute deep vein thrombosis (DVT) (4) Lung collapse (5) Sepsis (6) ATN (acute tubular necrosis) (7) Diabetes (8) HTN (hypertension) (9) CVA (cerebral vascular accident) (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 (2) Acute respiratory failure (3) Acute massive pulmonary embolism (4) Acute deep vein thrombosis (DVT) (5) ATN (acute tubular necrosis) (6) Acute encephalopathy (7) UTI (urinary tract infection) (8) Protein-calorie malnutrition, severe (9) Diabetes (10) HTN (hypertension) (11) CVA (cerebral vascular accident) Respiratory: monitor respiratory rate, adjust FIO2, CXR Cardiac: continue to monitor HR/BP Renal: F/U I&O, keep IV fluid, check electrolytes Infectious Disease: check cultures Gastrointestinal: continue feedings/current rate, adjust feedings Endocrine: monitor blood sugar, check TSH Hematologic: monitor H/H, transfuse if hgb<8.5 Neurologic: PRN Ativan, keep patient comfortable Affect: PRN ativan Prophylaxis: Protonix Notes Reviewed: delivery clerk, cardio Discussed with: nurses, consultants, rn case management Luzmaria Downey MD May 06, 2020 10:44
--- NOTE | 2020-05-06 10:49 | Nephrology Progress Note ---
Assessment/Plan Problem List: (1) KORY (acute kidney injury) (2) Hypernatremia (3) Dehydration (4) Acute respiratory failure Assessment Patient presents with acute hypoxic respiratory failure requiring BiPAP Sepsis lactic acidosis KORY Dehydration, hypernatremia History of COPD Anemia Low BMI, malnutrition. BMI of 20.1 History of CVA History of diabetes mellitus Plan May 06: Labs reviewed. Renal parameters stable. Continue per consultants. Remains full code. May 05: Labs reviewed. Renal parameters stable. Continue current management. Remains on Venturi mask. Remains full code. Calcium supplement discontinued May 04: Labs reviewed. Renal parameters are stable. Continue per current management. May 03: Labs reviewed. Renal parameters stable. Phosphorus supplement IV given. May 02: Serum sodium up to 144. Stable from renal standpoint of view. Continue per consultants. May 01: Serum serum sodium 136. Will stop D5W IV fluid. 1 dose of Lasix IV. Potassium supplement. Continue to monitor electrolytes. Continue per con sultants. April 30: Serum sodium 146. Low phosphorus replaced. Continue pulmonary support and per consultants. April 29: Serum sodium normalized. Electrolytes within normal limit. Remains on nonrebreather mask. Continue per consultants. April 28: Continue D5W. Abnormal electrolytes addressed. Continue per consultants. Remains full code. Remains on nonrebreather mask. April 27: Continue D5W. Continue pulmonary support. Monitor renal parameters and electrolytes. Continue per consultants. Patient full code. Remains on nonrebreathing mask. Contreras catheter IV D5W Monitor electrolytes and renal parameters Antibiotics Avoid nephrotoxic's 2D echocardiogram Per orders Subjective ROS Limited/Unobtainable: Yes Objective Objective Last 24 Hour Vital Signs Date Time Temp Pulse Resp B/P (MAP) Pulse Ox O2 Delivery O2 Flow Rate FiO2 05/06/20 08:46 75 106/52 05/06/20 08:00 99.7 75 16 106/52 (70) 100 05/06/20 07:29 100 Nasal Cannula 2.0 28 05/06/20 04:00 10.0 45 05/06/20 04:00 Venturi Mask 05/06/20 04:00 74 05/06/20 04:00 98.0 74 16 116/61 (79) 100 05/06/20 03:26 97 Nasal Cannula 2.0 28 05/06/20 00:00 98.1 70 20 125/59 (81) 100 05/06/20 00:00 Venturi Mask 05/05/20 23:32 73 05/05/20 20:00 67 05/05/20 20:00 Venturi Mask 05/05/20 20:00 99.1 61 16 115/55 (75) 100 05/05/20 20:00 Venturi Mask 05/05/20 20:00 10.0 45 05/05/20 19:15 98 Venturi Mask 6.0 31 05/05/20 17:00 76 167/70 05/05/20 16:00 76 05/05/20 16:00 Venturi Mask 05/05/20 16:00 10.0 45 05/05/20 16:00 98.6 63 21 167/70 (102) 100 05/05/20 12:00 Venturi Mask 05/05/20 12:00 10.0 45 05/05/20 12:00 59 05/05/20 12:00 98.4 59 21 158/52 (87) 100 l Intake and Output 05/05/20 05/06/20 19:00 07:00 Intake Total 990 ml 550 ml Output Total 400 ml 300 ml Balance 590 ml 250 ml Free Water 340 ml Tube Feeding 650 ml 550 ml Output Urine Total 400 ml 300 ml Current Medications Medications (Trade) Dose Ordered Sig/Lopez Route PRN Reason Start Time Stop Time Status Last Admin Dose Admin Acetaminophen (Tylenol) 650 mg Q4H PRN ORAL fever 04/25/20 00:00 05/25/20 00:00 05/05/20 04:40 Apixaban (Eliquis) 5 mg BID ORAL 05/06/20 18:00 08/04/20 17:59 Chlorhexidine Gluconate (Arpita-Hex 2%) 1 applic DAILY@2000 TOPIC 04/29/20 20:00 07/28/20 19:59 05/05/20 21:14 Clonidine HCl (Catapres Tab) 0.1 mg Q8H PRN GT For High Blood Pressure 05/05/20 16:45 08/03/20 16:44 Dextrose (Dextrose 50%) 25 ml Q30M PRN IV Hypoglycemia 04/25/20 00:00 07/24/20 00:00 Dextrose (Dextrose 50%) 50 ml Q30M PRN IV Hypoglycemia 04/25/20 00:00 07/24/20 00:00 Folic Acid (Folate) 1 mg DAILY ORAL 04/29/20 09:00 05/29/20 08:59 05/06/20 08:46 Insulin Aspart (NovoLOG) BEFORE MEALS AND HS SUBQ 04/25/20 06:30 07/24/20 06:29 04/28/20 06:22 Lamotrigine (LaMICtal) 25 mg DAILY ORAL 04/25/20 09:00 05/25/20 08:59 05/06/20 08:46 Memantine (Namenda) 5 mg TWICE A DAY ORAL 04/25/20 09:00 05/25/20 08:59 05/06/20 08:46 Metoprolol Tartrate (Lopressor) 50 mg BID GT 05/01/20 20:00 07/30/20 19:59 05/06/20 08:46 Olanzapine (ZyPREXA) 5 mg DAILY ORAL 04/25/20 09:00 06/09/20 08:59 05/06/20 08:45 Ondansetron HCl (Zofran) 4 mg Q6H PRN IVP Nausea & Vomiting 04/25/20 00:00 05/25/20 00:00 Polyethylene Glycol (Miralax) 17 gm DAILYPRN PRN ORAL Constipation 04/25/20 00:00 05/25/20 00:00 Quetiapine Fumarate (SEROqueL) 50 mg Q12HR ORAL 04/27/20 11:30 06/11/20 11:29 05/06/20 08:45 Laboratory Tests 05/05/20 12:04: POC Whole Blood Glucose 115H 05/05/20 16:31: POC Whole Blood Glucose 111H 05/05/20 21:16: POC Whole Blood Glucose 112H 05/06/20 04:50: White Blood Count 6.9, Red Blood Count 3.05L, Hemoglobin 9.3L, Hematocrit 29.6L, Mean Corpuscular Volume 97, Mean Corpuscular Hemoglobin 30.5, Mean Corpuscular Hemoglobin Concent 31.5L, Red Cell Distribution Width 13.4, Platelet Count 264, Mean Platelet Volume 6.7, Neutrophils (%) (Auto) , Lymphocytes (%) (Auto) , Monocytes (%) (Auto) , Eosinophils (%) (Auto) , Basophils (%) (Auto) , Differential Total Cells Counted 100, Neutrophils % (Manual) 70, Lymphocytes % (Manual) 15L, Monocytes % (Manual) 7, Eosinophils % (Manual) 7H, Basophils % (Manual) 1, Band Neutrophils 0, Platelet Estimate Adequate, Platelet Morphology Normal, Hypochromasia 1+, Macrocytosis 1+, Sodium Level 142, Potassium Level 4.4, Chloride Level 110H, Carbon Dioxide Level 29, Anion Gap 3L, Blood Urea Nitrogen 24H, Creatinine 0.6, Estimat Glomerular Filtration Rate > 60, Glucose Level 119H, Calcium Level 7.6L, Phosphorus Level 3.3, Magnesium Level 2.2, Total Bilirubin 0.3, Direct Bilirubin 0.1, Aspartate Amino Transf (AST/SGOT) 31, Alanine Aminotransferase (ALT/SGPT) 29, Alkaline Phosphatase 76, Total Protein 4.6L, Albumin 1.4L 05/06/20 04:55: POC Whole Blood Glucose 100 Height (Feet): 6 Height (Inches): 0.00 Weight (Pounds): 148 General Appearance: no apparent distress EENT: other - On Venturi mask alternate with nasal cannula Cardiovascular: normal rate Respiratory/Chest: decreased breath sounds Abdomen: distended Maximino Castillo MD May 06, 2020 10:49
--- NOTE | 2020-05-06 11:12 | Psychiatry Consultation ---
Psychiatry Consultation Psychiatry Consultation Chief Complaint: Dyspnea/Respdistress History of Present Illness: Dictated A 72-year-old male patient he has respiratory insufficiency approxi mately the decline in cognition below his baseline as well as attending has requested daily psychiatric consultation he has altered mental status confusion and mood lability goal is to try to prevent any further decline in this patient's cognition Mental status examination: 80-year-old male appearance is disheveled attitude irritable agitated affect guarded treated for mood depressed anxious motor activity psychomotor agitation is poor orientation x2 speech is low volume slurred thought process disorganized logical and judgment is poor Allergies: Coded Allergies: No Known Allergies (Unverified , 06/11/17) Medication History Scheduled Amino Acids/Protein Hydrolys (Pro-Stat Liquid), 30 ML ORAL DAILY, (Reported) Aspirin (Aspirin EC), 81 MG ORAL DAILY, (Reported) Docusate Sodium* (Colace*), 100 MG ORAL DAILY, (Reported) Folic Acid* (Folic Acid*), 1 MG ORAL DAILY, (Reported) Heparin Sod (Porcine) (Heparin Sodium*), 5,000 UNITS SUBQ DAILY, (Reported) Lamotrigine* (Lamictal*), 25 MG ORAL DAILY, (Reported) Lisinopril (Lisinopril*), 20 MG ORAL BID, (Reported) Memantine Hcl* (Namenda*), 5 MG ORAL TWICE A DAY, (Reported) Multivitamin With Minerals (Multivitamins With Minerals*), 1 TAB ORAL DAILY, (Reported) Olanzapine* (Zyprexa*), 5 MG ORAL DAILY, (Reported) Sennosides (Senna), 2 TAB PO BEDTIME, (Reported) Scheduled PRN Acetaminophen* (Acetaminophen 325MG Tablet*), 650 MG ORAL Q4H PRN for Fever/Headache/Mild Pain, (Reported) Bisacodyl (Dulcolax), 10 MG RC for Constipation, (Reported) Hydralazine Hcl* (Hydralazine Hcl*), 10 MG ORAL Q4HR PRN for SBP > 160 , (Reported) Ipratropium/Albuterol Sulfate (DuoNeb 0.5-3(2.5)mg/3ml), 1 UNIT HHN EVERY 6 HOURS PRN for Shortness of Breath, (Reported) Magnesium Hydroxide* (Milk Of Magnesia*), 30 ML ORAL EVERY 6 HOURS PRN for Constipation, (Reported) Na Phos,M-B/Na Phos,Di-Ba* (Fleet Enema*), 133 ML RECTAL DAILY PRN for Constipation, (Reported) Nitroglycerin 0.4MG table* (Nitroglycerin*), 0.4 MG SL .Q5MIN X 3 DOSES PRN for CHEST PAIN, (Reported) Miscellaneous Medications Insulin Lispro (Humalog), 0 SUBQ, (Reported) Objective Data Height (Feet): 6 Height (Inches): 0.00 Weight (Pounds): 148 Assessment/Plan Assessment/Plan: Continue the patient on Lamictal, Zyprexa, Ativan and Namenda. 20min of insight oriented psychotherapy to help him recognize his psychical and cogintive deficits so that he has less depression and better impulse control. Diagnosis [place] [facility]: Schizoaffective bipolar type Dakota Monroe MD May 06, 2020 11:12
[2020-05-06 12:00] VITALS: BP 107/58
--- NOTE | 2020-05-06 12:47 | NUR ---
NURSE NOTES: Dr. Carlin at the bedside, made aware of pale looking lower extremity, cap refill <3 sec, present pulse, per MD Dr. Dubon on the case, no new order received at this time, Will continue to monitor.
--- NOTE | 2020-05-06 13:02 | General Progress Note ---
Subjective Constitutional: Reports: weakness Allergies: Coded Allergies: No Known Allergies (Unverified , 06/11/17) All Systems: reviewed and negative except above Subjective o2nc ng Objective Last 24 Hour Vital Signs Date Time Temp Pulse Resp B/P (MAP) Pulse Ox O2 Delivery O2 Flow Rate FiO2 05/06/20 12:00 79 05/06/20 12:00 2.0 05/06/20 12:00 99.1 80 17 107/58 (74) 100 05/06/20 12:00 Nasal Cannula 2.0 05/06/20 08:46 75 106/52 05/06/20 08:00 72 05/06/20 08:00 2.0 05/06/20 08:00 99.7 75 16 106/52 (70) 100 05/06/20 08:00 Nasal Cannula 2.0 05/06/20 07:29 100 Nasal Cannula 2.0 28 05/06/20 04:00 10.0 45 05/06/20 04:00 Venturi Mask 05/06/20 04:00 74 05/06/20 04:00 98.0 74 16 116/61 (79) 100 05/06/20 03:26 97 Nasal Cannula 2.0 28 05/06/20 00:00 98.1 70 20 125/59 (81) 100 05/06/20 00:00 Venturi Mask 05/05/20 23:32 73 05/05/20 20:00 67 05/05/20 20:00 Venturi Mask 05/05/20 20:00 99.1 61 16 115/55 (75) 100 05/05/20 20:00 Venturi Mask 05/05/20 20:00 10.0 45 05/05/20 19:15 98 Venturi Mask 6.0 31 05/05/20 17:00 76 167/70 05/05/20 16:00 76 05/05/20 16:00 Venturi Mask 05/05/20 16:00 10.0 45 05/05/20 16:00 98.6 63 21 167/70 (102) 100 Intake and Output 05/05/20 05/06/20 19:00 07:00 Intake Total 990 ml 550 ml Output Total 400 ml 300 ml Balance 590 ml 250 ml Free Water 340 ml Tube Feeding 650 ml 550 ml Output Urine Total 400 ml 300 ml Laboratory Tests 05/05/20 16:31: POC Whole Blood Glucose 111H 05/05/20 21:16: POC Whole Blood Glucose 112H 05/06/20 04:50: White Blood Count 6.9, Red Blood Count 3.05L, Hemoglobin 9.3L, Hematocrit 29.6L, Mean Corpuscular Volume 97, Mean Corpuscular Hemoglobin 30.5, Mean Corpuscular Hemoglobin Concent 31.5L, Red Cell Distribution Width 13.4, Platelet Count 264, Mean Platelet Volume 6.7, Neutrophils (%) (Auto) , Lymphocytes (%) (Auto) , Monocytes (%) (Auto) , Eosinophils (%) (Auto) , Basophils (%) (Auto) , Differential Total Cells Counted 100, Neutrophils % (Manual) 70, Lymphocytes % (Manual) 15L, Monocytes % (Manual) 7, Eosinophils % (Manual) 7H, Basophils % (Manual) 1, Band Neutrophils 0, Platelet Estimate Adequate, Platelet Morphology Normal, Hypochromasia 1+, Macrocytosis 1+, Sodium Level 142, Potassium Level 4.4, Chloride Level 110H, Carbon Dioxide Level 29, Anion Gap 3L, Blood Urea Nitrogen 24H, Creatinine 0.6, Estimat Glomerular Filtration Rate > 60, Glucose Level 119H, Calcium Level 7.6L, Phosphorus Level 3.3, Magnesium Level 2.2, Total Bilirubin 0.3, Direct Bilirubin 0.1, Aspartate Amino Transf (AST/SGOT) 31, Alanine Aminotransferase (ALT/SGPT) 29, Alkaline Phosphatase 76, Total Protein 4.6L, Albumin 1.4L 05/06/20 04:55: POC Whole Blood Glucose 100 05/06/20 11:43: POC Whole Blood Glucose 95 Height (Feet): 6 Height (Inches): 0.00 Weight (Pounds): 148 General Appearance: lethargic EENT: normal ENT inspection Neck: normal alignment Cardiovascular: normal peripheral pulses, normal rate, regular rhythm Respiratory/Chest: chest wall non-tender, lungs clear, normal breath sounds Abdomen: normal bowel sounds, non tender, soft Extremities: normal inspection Edema: no edema noted Arm (L), no edema noted Arm (R), no edema noted Leg (L), no edema noted Leg (R), no edema noted Pedal (L), no edema noted Pedal (R), no edema noted Generalized Neurologic: motor weakness Skin: normal pigmentation, warm/dry Assessment/Plan Problem List: (1) UTI (urinary tract infection) ICD Codes: N39.0 - Urinary tract infection, site not specified SNOMED: 01188606 (2) CVA (cerebral vascular accident) ICD Codes: I63.9 - Cerebral infarction, unspecified SNOMED: 227535445 (3) KORY (acute kidney injury) ICD Codes: N17.9 - Acute kidney failure, unspecified SNOMED: 7518610, 83148069 (4) HTN (hypertension) ICD Codes: I10 - Essential (primary) hypertension SNOMED: 90386727 (5) Diabetes ICD Codes: E11.9 - Type 2 diabetes mellitus without complications SNOMED: 41218317 (6) Dehydration ICD Codes: E86.0 - Dehydration SNOMED: 71529091 (7) Hypernatremia ICD Codes: E87.0 - Hyperosmolality and hypernatremia SNOMED: 08716889 (8) Acute respiratory failure ICD Codes: J96.00 - Acute respiratory failure, unspecified whether with hypoxia or hypercapnia SNOMED: 13853863 Status: unchanged Assessment/Plan: o2 pulm tx abx pt diet cbc bmp am aru and ltach German Villanueva DO May 06, 2020 13:02
--- NOTE | 2020-05-06 13:26 | General Progress Note ---
Subjective ROS Limited/Unobtainable: No Allergies: Coded Allergies: No Known Allergies (Unverified , 06/11/17) Objective Last 24 Hour Vital Signs Date Time Temp Pulse Resp B/P (MAP) Pulse Ox O2 Delivery O2 Flow Rate FiO2 05/06/20 12:00 79 05/06/20 12:00 2.0 05/06/20 12:00 99.1 80 17 107/58 (74) 100 05/06/20 12:00 Nasal Cannula 2.0 05/06/20 08:46 75 106/52 05/06/20 08:00 72 05/06/20 08:00 2.0 05/06/20 08:00 99.7 75 16 106/52 (70) 100 05/06/20 08:00 Nasal Cannula 2.0 05/06/20 07:29 100 Nasal Cannula 2.0 28 05/06/20 04:00 10.0 45 05/06/20 04:00 Venturi Mask 05/06/20 04:00 74 05/06/20 04:00 98.0 74 16 116/61 (79) 100 05/06/20 03:26 97 Nasal Cannula 2.0 28 05/06/20 00:00 98.1 70 20 125/59 (81) 100 05/06/20 00:00 Venturi Mask 05/05/20 23:32 73 05/05/20 20:00 67 05/05/20 20:00 Venturi Mask 05/05/20 20:00 99.1 61 16 115/55 (75) 100 05/05/20 20:00 Venturi Mask 05/05/20 20:00 10.0 45 05/05/20 19:15 98 Venturi Mask 6.0 31 05/05/20 17:00 76 167/70 05/05/20 16:00 76 05/05/20 16:00 Venturi Mask 05/05/20 16:00 10.0 45 05/05/20 16:00 98.6 63 21 167/70 (102) 100 Intake and Output 05/05/20 05/06/20 19:00 07:00 Intake Total 990 ml 550 ml Output Total 400 ml 300 ml Balance 590 ml 250 ml Free Water 340 ml Tube Feeding 650 ml 550 ml Output Urine Total 400 ml 300 ml Laboratory Tests 05/05/20 16:31: POC Whole Blood Glucose 111H 11/18/20 21:16: POC Whole Blood Glucose 112H 05/06/20 04:50: White Blood Count 6.9, Red Blood Count 3.05L, Hemoglobin 9.3L, Hematocrit 29.6L, Mean Corpuscular Volume 97, Mean Corpuscular Hemoglobin 30.5, Mean Corpuscular Hemoglobin Concent 31.5L, Red Cell Distribution Width 13.4, Platelet Count 264, Mean Platelet Volume 6.7, Neutrophils (%) (Auto) , Lymphocytes (%) (Auto) , Monocytes (%) (Auto) , Eosinophils (%) (Auto) , Basophils (%) (Auto) , Differential Total Cells Counted 100, Neutrophils % (Manual) 70, Lymphocytes % (Manual) 15L, Monocytes % (Manual) 7, Eosinophils % (Manual) 7H, Basophils % (Manual) 1, Band Neutrophils 0, Platelet Estimate Adequate, Platelet Morphology Normal, Hypochromasia 1+, Macrocytosis 1+, Sodium Level 142, Potassium Level 4.4, Chloride Level 110H, Carbon Dioxide Level 29, Anion Gap 3L, Blood Urea Nitrogen 24H, Creatinine 0.6, Estimat Glomerular Filtration Rate > 60, Glucose Level 119H, Calcium Level 7.6L, Phosphorus Level 3.3, Magnesium Level 2.2, Total Bilirubin 0.3, Direct Bilirubin 0.1, Aspartate Amino Transf (AST/SGOT) 31, Alanine Aminotransferase (ALT/SGPT) 29, Alkaline Phosphatase 76, Total Protein 4.6L, Albumin 1.4L 05/06/20 04:55: POC Whole Blood Glucose 100 05/06/20 11:43: POC Whole Blood Glucose 95 Height (Feet): 6 Height (Inches): 0.00 Weight (Pounds): 148 General Appearance: no apparent distress EENT: normal ENT inspection Neck: supple Cardiovascular: normal rate Respiratory/Chest: decreased breath sounds Abdomen: normal bowel sounds, non tender, soft Extremities: non-tender Assessment/Plan Status: unchanged Assessment/Plan: 1. COPD. 2. Diabetes. 3. Schizophrenia. 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 5. Dementia. 6. Anemia 7. Dysphagia 8. Folate def NGTF on low dose given patient on BIPAP folate not stable for PEG on BIPAP neg stool ob>>> neg will Nathan Kemp MD May 06, 2020 13:26
[2020-05-06 16:00] VITALS: BP 102/69
--- NOTE | 2020-05-06 19:09 | NUR ---
NURSE HAND-OFF REPORT: Important Events on Shift: venturi to NC 2L Patient Status: stable Diet: Glucerna 1.2 @ 50 Pending Orders: na Pending Results/Labs:na Pending notification:na Latest Vital Signs: Temperature 98.1 , Pulse 76 , B/P 105 /69 , Respiratory Rate 17 , O2 SAT 100 , Nasal Cannula, O2 Flow Rate 2.0 . Vital Sign Comment: stable EKG Rhythm: Sinus Rhythm Rhythm change?: N Notified?: N -Dr. Devonte SAAVEDRA Response: No New Orders Received Latest Andersen Fall Score: 70 Fall Risk: High Risk Safety Measures: Call light Within Reach, Bed Alarm Zone 2, Side Rails Side Rails x3, Bed position Low and Locked. Fall Precautions: Yellow Socks Yellow Gown Door Sign Patient Fall Education Report given to CRUZ Romo.
--- NOTE | 2020-05-06 19:10 | NUR ---
NURSE NOTES: Report received from CRUZ Lassiter with update. Pt observed to be asleep, lethargic, and flat affect. Decerebrate on left extremities with right lower leg paleness. 5-lead EKG shows SR at 65 BPM. Fever of 100.6 at start of shift. Will initiate cooling measures and notify Dr. Loving. On 2L saturating 100% Pt left NGT running Glucerna 1.2 at 50 mL.
[2020-05-06 20:00] VITALS: BP 107/64
[2020-05-06] MEDS: Dyna-Hex 2% Top Sol 2oz TOPIC SCH (21:19)
--- NOTE | 2020-05-06 23:00 | NUR ---
NURSE NOTES: Fever decreased from 100.6 to 98.1
[2020-05-07] VITALS: BP 99/53
--- NOTE | 2020-05-07 01:56 | NUR ---
NURSE NOTES: Report received from CRUZ Lassiter with update. Pt observed to be asleep, lethargic, and flat affect. Decerebrate on left extremities with right lower leg paleness. 5-lead EKG shows SR at 65 BPM. Fever of 100.6 at start of shift. Will initiate cooling measures and notify Dr. Loving. On 2L saturating 100% Pt left NGT running Glucerna 1.2 at 50 mL. Contreras draining well to gravity. Bed kept in lowest and locked position. Side rails up x3. Bed alarm on. Will monitor. Addendum: 05/07/20 at 0201 by Mya Flores RN Wrong time. For 190905/06/2020
--- NOTE | 2020-05-07 02:05 | NUR ---
NURSE HAND-OFF REPORT: Important Events on Shift: Episode of fever Patient Status: Stable Diet: Glucerna 1.2 Pending Orders: N Pending Results/Labs: N Pending notification: Whitney Loving Latest Vital Signs: Temperature 98.1 , Pulse 69 , B/P 99 /53 , Respiratory Rate 20 , O2 SAT 100 , Nasal Cannula, O2 Flow Rate 2.0 . Vital Sign Comment: [] EKG Rhythm: Sinus Rhythm Rhythm change?: N Notified?: N -Dr. Devonte SAAVEDRA Response: No New Orders Received Latest Andersen Fall Score: 70 Fall Risk: High Risk Safety Measures: Call light Within Reach, Bed Alarm Zone 2, Side Rails Side Rails x3, Bed position Low and Locked. Fall Precautions: Yellow Socks Yellow Gown Door Sign Patient Fall Education Report given to CRUZ Leblanc.
--- NOTE | 2020-05-07 02:20 | NUR ---
NURSE NOTES: RECEIVED REPORT FROM CRUZ SCHMID. PATIENT ASLEEP IN BED, APPEARS OBTUNDED, OPENS EYES TO SHAKING. NO S/SX OF PAIN OR DISCOMFORT NOTED AT THIS TIME. BREATHING IS EVEN AND UNLABORED ON 2LPM O2 (HUMIDIFIED) VIA NASAL CANNULA, NO S/SX OF DISTRESS NOTED AT THIS TIME- RR20, SAO2 100%. NOTED TO HAVE ELI DOUBLE-LUMEN PICC- ASYMPTOMATIC, DRESSING DRY AND INTACT. IV SITE LAC PATENT, INTACT, ASYMPTOMATIC, SALINE-LOCKED. LUX CATHETER DRAINING WELL TO GRAVITY, URINE CLEAR AND DARK YELLOW/LIGHT PREMA IN COLOR. NGT FEEDING RUNNING PRESCRIBED- PATENT AND FLUSHED, ASYMPTOMATIC, WITH 3ML OF RESIDUAL NOTED; NG INSERTED IN LEFT NARE. FALL, ASPIRATION, SEIZURE PRECAUTIONS IN PLACE. CONTACT ISOLATION MAINTAINED. BED LOCKED AND IN LOWEST POSITION, SIDERAILS UP X 3. CALL LIGHT WITHIN REACH, WILL CONTINUE TO MONITOR PER POC.
[2020-05-07 04:00] VITALS: BP 135/68
[2020-05-07 04:55] LABS: BASOPHILS % (AUTO) 1.2 % (0.0-2.0); EOSINOPHILS % (AUTO) 7.3 % (0.0-3.0); HEMOGLOBIN 9.4 G/DL (14.2-18.0); LYMPHOCYTES % (AUTO) 23.2 % (20.0-45.0); MEAN CORPUSCULAR VOLUME 97 FL (80-99); MONOCYTES % (AUTO) 8.3 % (1.0-10.0); PLATELET COUNT 231 K/UL (150-450); RED BLOOD COUNT 3.09 M/UL (4.70-6.10); RED CELL DISTRIBUTION WIDTH 14.1 % (11.6-14.8); WHITE BLOOD COUNT 4.7 K/UL (4.8-10.8)
[2020-05-07 05:19] LABS: ALANINE AMINOTRANSFERASE 27 U/L (12-78); ALBUMIN 1.4 G/DL (3.4-5.0); ALBUMIN/GLOBULIN RATIO 0.5 (1.0-2.7); ALKALINE PHOSPHATASE 74 U/L (46-116); ANION GAP 0 mmol/L (5-15); ASPARTATE AMINO TRANSFERASE 29 U/L (15-37); BILIRUBIN,TOTAL 0.2 MG/DL (0.2-1.0); BLOOD UREA NITROGEN 23 mg/dL (7-18); CALCIUM 7.6 MG/DL (8.5-10.1); CARBON DIOXIDE 32 MMOL/L (21-32); CHLORIDE 110 MMOL/L (98-107); CREATININE 0.7 MG/DL (0.55-1.30); PHOSPHORUS 3.1 MG/DL (2.5-4.9); POTASSIUM 4.6 MMOL/L (3.5-5.1); SODIUM 142 MMOL/L (136-145)
[2020-05-07] MEDS: NovoLOG Insulin Flexpen SUBQ SCH ×4 (05:59→21:00)
--- NOTE | 2020-05-07 06:00 | NUR ---
NURSE NOTES: PATIENT CHANGED, LINEN CHANGED, WOUND CARE DONE- PATIENT TOLERATED WELL.
--- NOTE | 2020-05-07 07:38 | NUR ---
NURSE HAND-OFF REPORT: Important Events on Shift: N/A Patient Status: STABLE Diet: GLUCERNA 1.2 @ 50 ML/HR Pending Orders: N/A Pending Results/Labs: AM LABS Pending MD notification: N/A Latest Vital Signs: Temperature 97.5 , Pulse 66 , B/P 135 /68 , Respiratory Rate 18 , O2 SAT 99 , Nasal Cannula, O2 Flow Rate 2.0 . Vital Sign Comment: STABLE EKG Rhythm: Sinus Rhythm Rhythm change?: N MD Notified?: N -Dr. Devonte SAAVEDRA Response: No New Orders Received Latest Andersen Fall Score: 70 Fall Risk: High Risk Safety Measures: Call light Within Reach, Bed Alarm Zone 2, Side Rails Side Rails x3, Bed position Low and Locked. Fall Precautions: Yellow Socks Yellow Gown Door Sign Patient Fall Education Report given to RJ Ku RN.
--- NOTE | 2020-05-07 07:42 | Infectious Diseases Prog Note ---
Assessment/Plan 80yo M with: Fever x1 05/05, again 05/06 05/05 BCx NTD CXR: Significantly improved aeration of the left lung compared to one day prior. Residual dense atelectasis/consolidation of the left base. Interval development of some patchy opacities at the right base. Developing pneumonia not excluded. Sepsis UTI -u/a wbc 50-60, nit neg, leuk +1; ucx Neg Gram positive bacteremia- m/l contaminant -04/24 sp cx 1/2 S. epi; 04/26 Bcx NTD Fever; SP No leukocytosis -04/26 influenza screen neg CXR: Borderline cardiomegaly. No acute process -04/24 CXR: No acute cardiopulmonary disease. covid rapid PCR neg Acute hypoxic resp failure- SP NRB>Bipap> VM . BiPAP B/l DVT and PE -CTA chest: Positive for bilateral pulmonary emboli Equivocal evidence of right heart strain; RV /LV ratio around 0.5 but is somewhat difficult to assess due to ventricular muscle hypertrophy. Left basilar compressive atelectasis, pleural fluid, and possibly some consolidation. Trace right pleural fluid. Subtle mosaic perfusion pattern, nonspecific but probably represents very mild pulmonary edema. Cardiomegaly. Nasogastric tube -V. duplex: : On the right, occlusive thrombus is seen within the downstream common femoral vein, the femoral vein, popliteal vein as well as within multiple calf veins. On the left, occlusive thrombus is seen within the femoral vein and popliteal vein the common femoral vein and calf veins are patent. COPD DM2 HTN schizophrenia malnutrition CVA w/ left spastic hemiparesis vascular dementia schizoaffective-bipolar type SNF resident (E[facility] peterson) Plan: Start CTX #1 for possible aspiration pneumonitis given recurrent low-grade fevers UA/UCx F/u BCx 05/05 Trend temp curve closely 05/01 SP cefepime #8 04/30 SP vanco IV #6 -f/u cx -Monitor CBC/CMP, temperatures -aspiration precautions D/w RN Thank you for consulting [facility]. Will continue to follow along with you. Subjective Allergies: Coded Allergies: No Known Allergies (Unverified , 06/11/17) Tmax 100.6, again low grade fevers WBC 4.7 NAD in bed Objective Last 24 Hour Vital Signs Date Time Temp Pulse Resp B/P (MAP) Pulse Ox O2 Delivery O2 Flow Rate FiO2 05/07/20 04:00 Nasal Cannula 2.0 05/07/20 04:00 65 05/07/20 04:00 2.0 05/07/20 04:00 97.5 66 18 135/68 (90) 99 05/07/20 00:00 Nasal Cannula 2.0 05/07/20 00:00 98.1 69 20 99/53 (68) 100 05/06/20 23:27 70 05/06/20 21:50 99.9 05/06/20 21:00 99.9 05/06/20 20:00 2.0 05/06/20 20:00 100.6 83 20 107/64 (78) 100 05/06/20 20:00 Nasal Cannula 2.0 05/06/20 19:44 100 Nasal Cannula 2.0 28 05/06/20 17:28 76 105/69 05/06/20 16:00 2.0 05/06/20 16:00 76 05/06/20 16:00 98.1 77 17 102/69 (80) 100 05/06/20 16:00 Nasal Cannula 2.0 05/06/20 12:00 79 05/06/20 12:00 2.0 05/06/20 12:00 99.1 80 17 107/58 (74) 100 05/06/20 12:00 Nasal Cannula 2.0 05/06/20 08:46 75 106/52 05/06/20 08:00 72 05/06/20 08:00 2.0 05/06/20 08:00 99.7 75 16 106/52 (70) 100 05/06/20 08:00 Nasal Cannula 2.0 Height (Feet): 6 Height (Inches): 0.00 Weight (Pounds): 148 Gen: NAD in bed HEENT: NCAT on Venti mask CV: RRR Pulm: CTAB Abd: Soft, NTND Ext: No c/c/e Neuro: Sleeping Microbiology Date/Time Source Procedure Growth Status 05/05/20 09:37 Blood Blood Culture - Preliminary NO GROWTH AFTER 24 HOURS Resulted 05/05/20 09:27 Blood Blood Culture - Preliminary NO GROWTH AFTER 24 HOURS Resulted Laboratory Tests Test 05/06/20 11:43 05/06/20 16:57 05/06/20 21:24 05/07/20 00:28 POC Whole Blood Glucose 95 MG/DL (74-106) 83 MG/DL (74-106) 89 MG/DL (74-106) Pending Test 05/07/20 02:55 05/07/20 05:10 White Blood Count 4.7 K/UL (4.8-10.8) L Red Blood Count 3.09 M/UL (4.70-6.10) L Hemoglobin 9.4 G/DL (14.2-18.0) L Hematocrit 30.0 % (42.0-52.0) L Mean Corpuscular Volume 97 FL (80-99) Mean Corpuscular Hemoglobin 30.4 PG (27.0-31.0) Mean Corpuscular Hemoglobin Concent 31.4 G/DL (32.0-36.0) L Red Cell Distribution Width 14.1 % (11.6-14.8) Platelet Count 231 K/UL (150-450) Mean Platelet Volume 5.9 FL (6.5-10.1) L Neutrophils (%) (Auto) 60.0 % (45.0-75.0) Lymphocytes (%) (Auto) 23.2 % (20.0-45.0) Monocytes (%) (Auto) 8.3 % (1.0-10.0) Eosinophils (%) (Auto) 7.3 % (0.0-3.0) H Basophils (%) (Auto) 1.2 % (0.0-2.0) Erythrocyte Sedimentation Rate 48 MM/HR (0-20) H Sodium Level 142 MMOL/L (136-145) Potassium Level 4.6 MMOL/L (3.5-5.1) Chloride Level 110 MMOL/L (98-107) H Carbon Dioxide Level 32 MMOL/L (21-32) Anion Gap 0 mmol/L (5-15) L Blood Urea Nitrogen 23 mg/dL (7-18) H Creatinine 0.7 MG/DL (0.55-1.30) Estimat Glomerular Filtration Rate > 60 mL/min (>60) Glucose Level 103 MG/DL (74-106) Calcium Level 7.6 MG/DL (8.5-10.1) L Phosphorus Level 3.1 MG/DL (2.5-4.9) Magnesium Level 2.2 MG/DL (1.8-2.4) Total Bilirubin 0.2 MG/DL (0.2-1.0) Aspartate Amino Transf (AST/SGOT) 29 U/L (15-37) Alanine Aminotransferase (ALT/SGPT) 27 U/L (12-78) Alkaline Phosphatase 74 U/L (46-116) C-Reactive Protein, Quantitative 5.8 mg/dL (0.00-0.90) H Total Protein 4.5 G/DL (6.4-8.2) L Albumin 1.4 G/DL (3.4-5.0) L Globulin 3.1 g/dL Albumin/Globulin Ratio 0.5 (1.0-2.7) L POC Whole Blood Glucose 96 MG/DL (74-106) Current Medications Medications (Trade) Dose Ordered Sig/Lopez Route PRN Reason Start Time Stop Time Status Last Admin Dose Admin Acetaminophen (Tylenol) 650 mg Q4H PRN ORAL fever 04/25/20 00:00 05/25/20 00:00 05/06/20 21:20 Apixaban (Eliquis) 5 mg BID ORAL 05/06/20 18:00 08/04/20 17:59 05/06/20 17:27 Chlorhexidine Gluconate (Arpita-Hex 2%) 1 applic DAILY@1999 TOPIC 04/29/20 20:00 07/28/20 19:59 05/06/20 21:19 Clonidine HCl (Catapres Tab) 0.1 mg Q8H PRN GT For High Blood Pressure 05/05/20 16:45 08/03/20 16:44 Dextrose (Dextrose 50%) 25 ml Q30M PRN IV Hypoglycemia 04/25/20 00:00 07/24/20 00:00 Dextrose (Dextrose 50%) 50 ml Q30M PRN IV Hypoglycemia 04/25/20 00:00 07/24/20 00:00 Folic Acid (Folate) 1 mg DAILY ORAL 04/29/20 09:00 05/29/20 08:59 05/06/20 08:46 Insulin Aspart (NovoLOG) BEFORE MEALS AND HS SUBQ 04/25/20 06:30 07/24/20 06:29 04/28/20 06:22 Lamotrigine (LaMICtal) 25 mg DAILY ORAL 04/25/20 09:00 05/25/20 08:59 05/06/20 08:46 Memantine (Namenda) 5 mg TWICE A DAY ORAL 04/25/20 09:00 05/25/20 08:59 05/06/20 17:28 Metoprolol Tartrate (Lopressor) 50 mg BID GT 05/01/20 20:00 07/30/20 19:59 05/06/20 17:28 Olanzapine (ZyPREXA) 5 mg DAILY ORAL 04/25/20 09:00 06/09/20 08:59 05/06/20 08:45 Ondansetron HCl (Zofran) 4 mg Q6H PRN IVP Nausea & Vomiting 04/25/20 00:00 05/25/20 00:00 Polyethylene Glycol (Miralax) 17 gm DAILYPRN PRN ORAL Constipation 04/25/20 00:00 05/25/20 00:00 Quetiapine Fumarate (SEROqueL) 50 mg Q12HR ORAL 04/27/20 11:30 06/11/20 11:29 05/06/20 21:19 Raina Loving M.D. May 07, 2020 07:42
[2020-05-07 08:00] VITALS: BP 121/60
--- NOTE | 2020-05-07 09:02 | General Progress Note ---
Subjective Constitutional: Reports: weakness Allergies: Coded Allergies: No Known Allergies (Unverified , 06/11/17) All Systems: reviewed and negative except above Subjective o2nc ng Objective Last 24 Hour Vital Signs Date Time Temp Pulse Resp B/P (MAP) Pulse Ox O2 Delivery O2 Flow Rate FiO2 05/07/20 08:00 2.0 05/07/20 08:00 99.5 89 19 121/60 (80) 100 05/07/20 04:00 Nasal Cannula 2.0 05/07/20 04:00 65 05/07/20 04:00 2.0 05/07/20 04:00 97.5 66 18 135/68 (90) 99 05/07/20 00:00 Nasal Cannula 2.0 05/07/20 00:00 98.1 69 20 99/53 (68) 100 05/06/20 23:27 70 05/06/20 21:50 99.9 05/06/20 21:00 99.9 05/06/20 20:00 2.0 05/06/20 20:00 100.6 83 20 107/64 (78) 100 05/06/20 20:00 Nasal Cannula 2.0 05/06/20 19:44 100 Nasal Cannula 2.0 28 05/06/20 17:28 76 105/69 05/06/20 16:00 2.0 05/06/20 16:00 76 05/06/20 16:00 98.1 77 17 102/69 (80) 100 05/06/20 16:00 Nasal Cannula 2.0 05/06/20 12:00 79 05/06/20 12:00 2.0 05/06/20 12:00 99.1 80 17 107/58 (74) 100 05/06/20 12:00 Nasal Cannula 2.0 Intake and Output 05/06/20 05/07/20 19:00 07:00 Intake Total 690 ml 700 ml Output Total 600 ml 525 ml Balance 90 ml 175 ml Free Water 90 ml 150 ml Tube Feeding 600 ml 550 ml Output Urine Total 600 ml 525 ml # Bowel Movements 2 1 Laboratory Tests 05/06/20 11:43: POC Whole Blood Glucose 95 05/06/20 16:57: POC Whole Blood Glucose 83 05/06/20 21:24: POC Whole Blood Glucose 89 05/07/20 00:28: POC Whole Blood Glucose [Pending] 05/07/20 02:55: White Blood Count 4.7L, Red Blood Count 3.09L, Hemoglobin 9.4L, Hematocrit 30.0L , Mean Corpuscular Volume 97, Mean Corpuscular Hemoglobin 30.4, Mean Corpuscular Hemoglobin Concent 31.4L, Red Cell Distribution Width 14.1, Platelet Count 231, Mean Platelet Volume 5.9L, Neutrophils (%) (Auto) 60.0, Lymphocytes (%) (Auto) 23.2, Monocytes (%) (Auto) 8.3, Eosinophils (%) (Auto) 7.3H, Basophils (%) (Auto) 1.2, Erythrocyte Sedimentation Rate 48H, Sodium Level 142, Potassium Level 4.6, Chloride Level 110H, Carbon Dioxide Level 32, Anion Gap 0L, Blood Urea Nitrogen 23H, Creatinine 0.7, Estimat Glomerular Filtration Rate > 60, Glucose Level 103, Calcium Level 7.6L, Phosphorus Level 3.1, Magnesium Level 2.2, Total Bilirubin 0.2, Aspartate Amino Transf (AST/SGOT) 29, Alanine Aminotransferase (ALT/SGPT) 27, Alkaline Phosphatase 74, C-Reactive Protein, Quantitative 5.8H, Total Protein 4.5L, Albumin 1.4L, Globulin 3.1, Albumin/Globulin Ratio 0.5L 05/07/20 05:10: POC Whole Blood Glucose 96 Height (Feet): 6 Height (Inches): 0.00 Weight (Pounds): 148 General Appearance: lethargic EENT: normal ENT inspection Neck: normal alignment Cardiovascular: normal peripheral pulses, normal rate, regular rhythm Respiratory/Chest: chest wall non-tender, lungs clear, normal breath sounds Abdomen: normal bowel sounds, non tender, soft Extremities: normal inspection Edema: no edema noted Arm (L), no edema noted Arm (R), no edema noted Leg (L), no edema noted Leg (R), no edema noted Pedal (L), no edema noted Pedal (R), no edema noted Generalized Neurologic: motor weakness Skin: normal pigmentation, warm/dry Assessment/Plan Problem List: (1) UTI (urinary tract infection) ICD Codes: N39.0 - Urinary tract infection, site not specified SNOMED: 34854655 (2) CVA (cerebral vascular accident) ICD Codes: I63.9 - Cerebral infarction, unspecified SNOMED: 898570965 (3) KORY (acute kidney injury) ICD Codes: N17.9 - Acute kidney failure, unspecified SNOMED: 4316597, 78770854 (4) HTN (hypertension) ICD Codes: I10 - Essential (primary) hypertension SNOMED: 82792184 (5) Diabetes ICD Codes: E11.9 - Type 2 diabetes mellitus without complications SNOMED: 32073248 (6) Dehydration ICD Codes: E86.0 - Dehydration SNOMED: 42964402 (7) Hypernatremia ICD Codes: E87.0 - Hyperosmolality and hypernatremia SNOMED: 29658531 (8) Acute respiratory failure ICD Codes: J96.00 - Acute respiratory failure, unspecified whether with hypoxia or hypercapnia SNOMED: 59991690 Status: unchanged Assessment/Plan: o2 pulm tx abx pt diet cbc bmp am aru and ltach German Villanueva DO May 07, 2020 09:02
[2020-05-07] MEDS: Metoprolol Tartrate 50mg tab GT SCH ×2 (09:10→18:35)
[2020-05-07] MEDS: cefTRIAXone 1 GM in D5W 55 ML IVPB SCH (09:10)
[2020-05-07] MEDS: Eliquis 5mg tablet ORAL SCH ×2 (09:10→18:34)
[2020-05-07] MEDS: Memantine 10mg tab ORAL SCH ×2 (09:11→18:33)
--- NOTE | 2020-05-07 09:41 | Hematology/Onc Progress Note ---
Assessment/Plan Assessment/Plan # Bilateral pulmonary emboli on cta as well as Dvt on duplex --> Equivocal evidence of right heart strain; RV /LV ratio around 0.5 but is somewhat difficult to assess due to ventricular muscle hypertrophy --> duplex Positive for bilateral lower extremity deep venous thrombosis, as described --> continue on heparin gtt until stabilizes, then consider noac --> 04/29 started on eliquis # Anemia of chronic disease, anemia panel is noted --> r/o bleed, is on anticoag --> hgb 10-->8.7-->8.5-->9.4-->9.7-->>9.5-->9.4 -> no hemolysis is noted # Leukocytosis due to sepsis/uti --> ABX Cefepime/vanc-->off --> smear is reviewed --> wbc 7-->4 # COPD. --> breathing rx as needed # Diabetes mellitus --> iss, accuchecks qac and qhs # Schizophrenia. --> per psych recs # History of CVA with left hemiparesis. # Dementia. # Dysphagia with ngt # Folate def # Dvt ppx eliquis Appreciate consultation and jorge l Rn Subjective Constitutional: Denies: no symptoms, chills, fever, malaise, weakness, other HEENT: Denies: no symptoms, eye pain, blurred vision, tearing, double vision, ear pain, ear discharge, nose pain, nose congestion, throat pain, throat swelling, mouth pain, mouth swelling, other Cardiovascular: Denies: no symptoms, chest pain, edema, irregular heart rate, lightheadedness, palpitations, syncope, other Gastrointestinal/Abdominal: Denies: no symptoms, abdomen distended, abdominal pain, black stools, tarry stools, blood in stool, constipated, diarrhea, difficulty swallowing, nausea, poor appetite, poor fluid intake, rectal bleeding, vomiting, other Genitourinary: Denies: no symptoms, burning, discharge, frequency, flank pain, hematuria, incontinence, pain, urgency, other Neurologic/Psychiatric: Denies: no symptoms, anxiety, depressed, emotional problems, headache, numbness, paresthesia, pre-existing deficit, seizure, tingling, tremors, weakness, other Endocrine: Denies: no symptoms, excessive sweating, flushing, intolerance to co ld, intolerance to heat, increased hunger, increased thirst, increased urine, unexplained weight gain, unexplained weight loss, other Hematologic/Lymphatic: Denies: no symptoms, anemia, easy bleeding, easy bruising, adenopathy, other Allergies: Coded Allergies: No Known Allergies (Unverified , 06/11/17) Subjective 04/29 remains on heparin gtt, labs noted, no bleeding, h/h stable, on folate 04/30 meds noted, changed to apixaban, labs noted 05/02 asleep, no bleeding, meds noted, labs reviewed, on noac 05/03 is asleep, no bleeding, no night sweats reported, cbc noted 05/04 remains lethargic, hgb 9.7, no bleeding, meds noted 05/05 labs reviewed, hgb 9.5, dressing changes, no events is combative overnight, is on 2lnc, apixaban 05/07 labs reviewed, meds noted, no fc, wbc 4.7 Objective Objective Current Medications Medications (Trade) Dose Ordered Sig/Lopez Route PRN Reason Start Time Stop Time Status Last Admin Dose Admin Acetaminophen (Tylenol) 650 mg Q4H PRN ORAL fever 04/25/20 00:00 05/25/20 00:00 05/06/20 21:20 Apixaban (Eliquis) 5 mg BID ORAL 05/06/20 18:00 08/04/20 17:59 05/07/20 09:10 Ceftriaxone Sodium 1 gm/ Dextrose 55 ml @ 110 mls/hr Q24H IVPB 05/07/20 09:00 05/14/20 08:59 05/07/20 09:10 Chlorhexidine Gluconate (Arpita-Hex 2%) 1 applic DAILY@2000 TOPIC 04/29/20 20:00 07/28/20 19:59 05/06/20 21:19 Clonidine HCl (Catapres Tab) 0.1 mg Q8H PRN GT For High Blood Pressure 05/05/20 16:45 08/03/20 16:44 Dextrose (Dextrose 50%) 25 ml Q30M PRN IV Hypoglycemia 04/25/20 00:00 07/24/20 00:00 Dextrose (Dextrose 50%) 50 ml Q30M PRN IV Hypoglycemia 04/25/20 00:00 07/24/20 00:00 Folic Acid (Folate) 1 mg DAILY ORAL 04/29/20 09:00 05/29/20 08:59 05/07/20 09:10 Insulin Aspart (NovoLOG) BEFORE MEALS AND HS SUBQ 04/25/20 06:30 07/24/20 06:29 04/28/20 06:22 Lamotrigine (LaMICtal) 25 mg DAILY ORAL 04/25/20 09:00 05/25/20 08:59 05/07/20 09:11 Memantine (Namenda) 5 mg TWICE A DAY ORAL 04/25/20 09:00 05/25/20 08:59 05/07/20 09:11 Metoprolol Tartrate (Lopressor) 50 mg BID GT 05/01/20 20:00 07/30/20 19:59 05/07/20 09:10 Olanzapine (ZyPREXA) 5 mg DAILY ORAL 04/25/20 09:00 06/09/20 08:59 05/07/20 09:11 Ondansetron HCl (Zofran) 4 mg Q6H PRN IVP Nausea & Vomiting 04/25/20 00:00 05/25/20 00:00 Polyethylene Glycol (Miralax) 17 gm DAILYPRN PRN ORAL Constipation 04/25/20 00:00 05/25/20 00:00 Quetiapine Fumarate (SEROqueL) 50 mg Q12HR ORAL 04/27/20 11:30 06/11/20 11:29 05/07/20 09:10 Last 24 Hour Vital Signs Date Time Temp Pulse Resp B/P (MAP) Pulse Ox O2 Delivery O2 Flow Rate FiO2 05/07/20 09:10 89 121/60 05/07/20 08:00 2.0 05/07/20 08:00 75 05/07/20 08:00 99.5 89 19 121/60 (80) 100 05/07/20 04:00 Nasal Cannula 2.0 05/07/20 04:00 65 05/07/20 04:00 2.0 05/07/20 04:00 97.5 66 18 135/68 (90) 99 05/07/20 00:00 Nasal Cannula 2.0 05/07/20 00:00 98.1 69 20 99/53 (68) 100 05/06/20 23:27 70 05/06/20 21:50 99.9 05/06/20 21:00 99.9 05/06/20 20:00 2.0 05/06/20 20:00 100.6 83 20 107/64 (78) 100 05/06/20 20:00 Nasal Cannula 2.0 05/06/20 19:44 100 Nasal Cannula 2.0 28 05/06/20 17:28 76 105/69 05/06/20 16:00 2.0 05/06/20 16:00 76 05/06/20 16:00 98.1 77 17 102/69 (80) 100 05/06/20 16:00 Nasal Cannula 2.0 05/06/20 12:00 79 05/06/20 12:00 2.0 05/06/20 12:00 99.1 80 17 107/58 (74) 100 05/06/20 12:00 Nasal Cannula 2.0 05/06/20 08:46 75 106/52 05/06/20 08:00 72 05/06/20 08:00 2.0 05/06/20 08:00 99.7 75 16 106/52 (70) 100 05/06/20 08:00 Nasal Cannula 2.0 05/06/20 07:29 100 Nasal Cannula 2.0 28 05/06/20 04:00 10.0 45 05/06/20 04:00 Venturi Mask 05/06/20 04:00 74 05/06/20 04:00 98.0 74 16 116/61 (79) 100 05/06/20 03:26 97 Nasal Cannula 2.0 28 05/06/20 00:00 98.1 70 20 125/59 (81) 100 05/06/20 00:00 Venturi Mask 05/05/20 23:32 73 05/05/20 20:00 67 05/05/20 20:00 Venturi Mask 05/05/20 20:00 99.1 61 16 115/55 (75) 100 05/05/20 20:00 Venturi Mask 05/05/20 20:00 10.0 45 05/05/20 19:15 98 Venturi Mask 6.0 31 05/05/20 17:00 76 167/70 05/05/20 16:00 76 05/05/20 16:00 Venturi Mask 05/05/20 16:00 10.0 45 05/05/20 16:00 98.6 63 21 167/70 (102) 100 05/05/20 12:00 Venturi Mask 05/05/20 12:00 10.0 45 05/05/20 12:00 59 05/05/20 12:00 98.4 59 21 158/52 (87) 100 05/05/20 09:51 98 Venturi Mask 10.0 45 05/05/20 09:44 63 140/73 Intake and Output 05/06/20 05/07/20 19:00 07:00 Intake Total 690 ml 700 ml Output Total 600 ml 525 ml Balance 90 ml 175 ml Free Water 90 ml 150 ml Tube Feeding 600 ml 550 ml Output Urine Total 600 ml 525 ml # Bowel Movements 2 1 Labs Test 05/04/20 11:40 05/04/20 16:55 05/04/20 20:13 05/04/20 20:45 POC Whole Blood Glucose 118 MG/DL (74-106) 103 MG/DL (74-106) 108 MG/DL (74-106) Magnesium Level 2.2 MG/DL (1.8-2.4) Test 05/05/20 00:00 05/05/20 04:20 05/05/20 04:39 05/05/20 12:04 Stool Occult Blood Negative (NEGATIVE) White Blood Count 8.9 K/UL (4.8-10.8) Red Blood Count 3.14 M/UL (4.70-6.10) Hemoglobin 9.5 G/DL (14.2-18.0) Hematocrit 30.1 % (42.0-52.0) Mean Corpuscular Volume 96 FL (80-99) Mean Corpuscular Hemoglobin 30.2 PG (27.0-31.0) Mean Corpuscular Hemoglobin Concent 31.5 G/DL (32.0-36.0) Red Cell Distribution Width 13.5 % (11.6-14.8) Platelet Count 250 K/UL (150-450) Mean Platelet Volume 6.4 FL (6.5-10.1) Neutrophils (%) (Auto) 73.5 % (45.0-75.0) Lymphocytes (%) (Auto) 15.3 % (20.0-45.0) Monocytes (%) (Auto) 6.8 % (1.0-10.0) Eosinophils (%) (Auto) 3.7 % (0.0-3.0) Basophils (%) (Auto) 0.7 % (0.0-2.0) Sodium Level 142 MMOL/L (136-145) Potassium Level 4.9 MMOL/L (3.5-5.1) Chloride Level 110 MMOL/L (98-107) Carbon Dioxide Level 29 MMOL/L (21-32) Anion Gap 3 mmol/L (5-15) Blood Urea Nitrogen 22 mg/dL (7-18) Creatinine 0.8 MG/DL (0.55-1.30) Estimat Glomerular Filtration Rate > 60 mL/min (>60) Glucose Level 109 MG/DL (74-106) Calcium Level 7.6 MG/DL (8.5-10.1) POC Whole Blood Glucose 124 MG/DL (74-106) 115 MG/DL (74-106) Test 05/05/20 16:31 05/05/20 21:16 05/06/20 04:50 05/06/20 04:55 POC Whole Blood Glucose 111 MG/DL (74-106) 112 MG/DL (74-106) 100 MG/DL (74-106) White Blood Count 6.9 K/UL (4.8-10.8) Red Blood Count 3.05 M/UL (4.70-6.10) Hemoglobin 9.3 G/DL (14.2-18.0) Hematocrit 29.6 % (42.0-52.0) Mean Corpuscular Volume 97 FL (80-99) Mean Corpuscular Hemoglobin 30.5 PG (27.0-31.0) Mean Corpuscular Hemoglobin Concent 31.5 G/DL (32.0-36.0) Red Cell Distribution Width 13.4 % (11.6-14.8) Platelet Count 264 K/UL (150-450) Mean Platelet Volume 6.7 FL (6.5-10.1) Neutrophils (%) (Auto) % (45.0-75.0) Lymphocytes (%) (Auto) % (20.0-45.0) Monocytes (%) (Auto) % (1.0-10.0) Eosinophils (%) (Auto) % (0.0-3.0) Basophils (%) (Auto) % (0.0-2.0) Differential Total Cells Counted 100 Neutrophils % (Manual) 70 % (45-75) Lymphocytes % (Manual) 15 % (20-45) Monocytes % (Manual) 7 % (1-10) Eosinophils % (Manual) 7 % (0-3) Basophils % (Manual) 1 % (0-2) Band Neutrophils 0 % (0-8) Platelet Estimate Adequate Platelet Morphology Normal Hypochromasia 1+ Macrocytosis 1+ Sodium Level 142 MMOL/L (136-145) Potassium Level 4.4 MMOL/L (3.5-5.1) Chloride Level 110 MMOL/L (98-107) Carbon Dioxide Level 29 MMOL/L (21-32) Anion Gap 3 mmol/L (5-15) Blood Urea Nitrogen 24 mg/dL (7-18) Creatinine 0.6 MG/DL (0.55-1.30) Estimat Glomerular Filtration Rate > 60 mL/min (>60) Glucose Level 119 MG/DL (74-106) Calcium Level 7.6 MG/DL (8.5-10.1) Phosphorus Level 3.3 MG/DL (2.5-4.9) Magnesium Level 2.2 MG/DL (1.8-2.4) Total Bilirubin 0.3 MG/DL (0.2-1.0) Direct Bilirubin 0.1 MG/DL (0.0-0.3) Aspartate Amino Transf (AST/SGOT) 31 U/L (15-37) Alanine Aminotransferase (ALT/SGPT) 29 U/L (12-78) Alkaline Phosphatase 76 U/L (46-116) Total Protein 4.6 G/DL (6.4-8.2) Albumin 1.4 G/DL (3.4-5.0) Test 05/06/20 11:43 05/06/20 16:57 05/06/20 21:24 05/07/20 00:28 POC Whole Blood Glucose 95 MG/DL (74-106) 83 MG/DL (74-106) 89 MG/DL (74-106) Test 05/07/20 02:55 05/07/20 05:10 White Blood Count 4.7 K/UL (4.8-10.8) Red Blood Count 3.09 M/UL (4.70-6.10) Hemoglobin 9.4 G/DL (14.2-18.0) Hematocrit 30.0 % (42.0-52.0) Mean Corpuscular Volume 97 FL (80-99) Mean Corpuscular Hemoglobin 30.4 PG (27.0-31.0) Mean Corpuscular Hemoglobin Concent 31.4 G/DL (32.0-36.0) Red Cell Distribution Width 14.1 % (11.6-14.8) Platelet Count 231 K/UL (150-450) Mean Platelet Volume 5.9 FL (6.5-10.1) Neutrophils (%) (Auto) 60.0 % (45.0-75.0) Lymphocytes (%) (Auto) 23.2 % (20.0-45.0) Monocytes (%) (Auto) 8.3 % (1.0-10.0) Eosinophils (%) (Auto) 7.3 % (0.0-3.0) Basophils (%) (Auto) 1.2 % (0.0-2.0) Erythrocyte Sedimentation Rate 48 MM/HR (0-20) Sodium Level 142 MMOL/L (136-145) Potassium Level 4.6 MMOL/L (3.5-5.1) Chloride Level 110 MMOL/L (98-107) Carbon Dioxide Level 32 MMOL/L (21-32) Anion Gap 0 mmol/L (5-15) Blood Urea Nitrogen 23 mg/dL (7-18) Creatinine 0.7 MG/DL (0.55-1.30) Estimat Glomerular Filtration Rate > 60 mL/min (>60) Glucose Level 103 MG/DL (74-106) Calcium Level 7.6 MG/DL (8.5-10.1) Phosphorus Level 3.1 MG/DL (2.5-4.9) Magnesium Level 2.2 MG/DL (1.8-2.4) Total Bilirubin 0.2 MG/DL (0.2-1.0) Aspartate Amino Transf (AST/SGOT) 29 U/L (15-37) Alanine Aminotransferase (ALT/SGPT) 27 U/L (12-78) Alkaline Phosphatase 74 U/L (46-116) C-Reactive Protein, Quantitative 5.8 mg/dL (0.00-0.90) Total Protein 4.5 G/DL (6.4-8.2) Albumin 1.4 G/DL (3.4-5.0) Globulin 3.1 g/dL Albumin/Globulin Ratio 0.5 (1.0-2.7) POC Whole Blood Glucose 96 MG/DL (74-106) Height (Feet): 6 Height (Inches): 0.00 Weight (Pounds): 148 Sree Dubon MD May 07, 2020 09:41
--- NOTE | 2020-05-07 10:30 | NUR ---
RD ASSESSMENT & RECOMMENDATIONS SEE CARE ACTIVITY FOR COMPLETE ASSESSMENT DAILY ESTIMATED NEEDS: Needs based on DM, Cardiac (67.3kg) 25-35 kcals/kg 6845-7639 total kcals 1.25-1.5 g protein/kg 84-101 g total protein 25-30 mL/kg 9336-3019 total fluid mLs NUTRITION DIAGNOSIS: Difficulty chewing/swallowing r/t dysphagia s/p CVA, respiratory status as evidenced by pt NPO, now on NGT feeds, off BIPAP, on NC. CURRENT TF:Glucerna 1.2 @ 50ml/hr x 24 hrs ENTERAL NUTRITION RECOMMENDATIONS: Glucerna 1.2 @ 60ml/hr x24 hrs to provide 1440ml, 1728 kcal, 86g pro, 1158ml free H2O - Increase goal rate to 60ml/hr to meet 100% est kcal/prot needs - Flush per MD, HOB over 30 degrees. 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
--- NOTE | 2020-05-07 10:45 | NUR ---
NURSE NOTES: Dr. Downey updated on patient respiratory status,. he remains on 2L/min nasal cannula with no distress noted. he has PRN bipap at 12/5 with FIO2 of 60%. on nasal cannula he is saturating at 97% with no distress noted.
--- NOTE | 2020-05-07 10:52 | Pulmonology Progress Note ---
Subjective ROS Limited/Unobtainable: No Constitutional: Reports: no symptoms HEENT: Repors: no symptoms Allergies: Coded Allergies: No Known Allergies (Unverified , 06/11/17) All Systems: reviewed and negative except above Objective Last 24 Hour Vital Signs Date Time Temp Pulse Resp B/P (MAP) Pulse Ox O2 Delivery O2 Flow Rate FiO2 05/07/20 09:10 89 121/60 05/07/20 08:00 2.0 05/07/20 08:00 75 05/07/20 08:00 99.5 89 19 121/60 (80) 100 05/07/20 04:00 Nasal Cannula 2.0 05/07/20 04:00 65 05/07/20 04:00 2.0 05/07/20 04:00 97.5 66 18 135/68 (90) 99 05/07/20 00:00 Nasal Cannula 2.0 05/07/20 00:00 98.1 69 20 99/53 (68) 100 05/06/20 23:27 70 05/06/20 21:50 99.9 05/06/20 21:00 99.9 05/06/20 20:00 2.0 05/06/20 20:00 100.6 83 20 107/64 (78) 100 05/06/20 20:00 Nasal Cannula 2.0 05/06/20 19:44 100 Nasal Cannula 2.0 28 05/06/20 17:28 76 105/69 05/06/20 16:00 2.0 05/06/20 16:00 76 05/06/20 16:00 98.1 77 17 102/69 (80) 100 05/06/20 16:00 Nasal Cannula 2.0 05/06/20 12:00 79 05/06/20 12:00 2.0 05/06/20 12:00 99.1 80 17 107/58 (74) 100 05/06/20 12:00 Nasal Cannula 2.0 Intake and Output 05/06/20 05/07/20 19:00 07:00 Intake Total 690 ml 700 ml Output Total 600 ml 525 ml Balance 90 ml 175 ml Free Water 90 ml 150 ml Tube Feeding 600 ml 550 ml Output Urine Total 600 ml 525 ml # Bowel Movements 2 1 General Appearance: cachetic Respiratory: chest wall non-tender, rhonchi - left, rhonchi - right Cardiovascular: normal peripheral pulses, normal rate, regular rhythm Abdomen: normal bowel sounds, soft, non tender, non distended Genitourinary: normal external genitalia Extremities: no cyanosis Skin: no rash 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 Lymphatic: no neck adenopathy Microbiology Date/Time Source Procedure Growth Status 05/05/20 09:37 Blood Blood Culture - Preliminary NO GROWTH AFTER 24 HOURS Resulted 05/05/20 09:27 Blood Blood Culture - Preliminary NO GROWTH AFTER 24 HOURS Resulted Laboratory Tests 05/06/20 11:43: POC Whole Blood Glucose 95 05/06/20 16:57: POC Whole Blood Glucose 83 05/06/20 21:24: POC Whole Blood Glucose 89 05/07/20 00:28: POC Whole Blood Glucose [Pending] 05/07/20 02:55: White Blood Count 4.7L, Red Blood Count 3.09L, Hemoglobin 9.4L, Hematocrit 30.0L , Mean Corpuscular Volume 97, Mean Corpuscular Hemoglobin 30.4, Mean Corpuscular Hemoglobin Concent 31.4L, Red Cell Distribution Width 14.1, Platelet Count 231, Mean Platelet Volume 5.9L, Neutrophils (%) (Auto) 60.0, Lymphocytes (%) (Auto) 23.2, Monocytes (%) (Auto) 8.3, Eosinophils (%) (Auto) 7.3H, Basophils (%) (Auto) 1.2, Erythrocyte Sedimentation Rate 48H, Sodium Level 142, Potassium Level 4.6, Chloride Level 110H, Carbon Dioxide Level 32, Anion Gap 0L, Blood Urea Nitrogen 23H, Creatinine 0.7, Estimat Glomerular Filtration Rate > 60, Glucose Level 103, Calcium Level 7.6L, Phosphorus Level 3.1, Magnesium Level 2.2, Total Bilirubin 0.2, Aspartate Amino Transf (AST/SGOT) 29, Alanine Aminotransferase (ALT/SGPT) 27, Alkaline Phosphatase 74, C-Reactive Protein, Quantitative 5.8H, Total Protein 4.5L, Albumin 1.4L, Globulin 3.1, Albumin/Globulin Ratio 0.5L 05/07/20 05:10: POC Whole Blood Glucose 96 Current Medications Medications (Trade) Dose Ordered Sig/Lopez Route PRN Reason Start Time Stop Time Status Last Admin Dose Admin Acetaminophen (Tylenol) 650 mg Q4H PRN ORAL fever 04/25/20 00:00 05/25/20 00:00 05/06/20 21:20 Apixaban (Eliquis) 5 mg BID ORAL 05/06/20 18:00 08/04/20 17:59 05/07/20 09:10 Ceftriaxone Sodium 1 gm/ Dextrose 55 ml @ 110 mls/hr Q24H IVPB 05/07/20 09:00 05/14/20 08:59 05/07/20 09:10 Chlorhexidine Gluconate (Arpita-Hex 2%) 1 applic DAILY@2000 TOPIC 04/29/20 20:00 07/28/20 19:59 05/06/20 21:19 Clonidine HCl (Catapres Tab) 0.1 mg Q8H PRN GT For High Blood Pressure 05/05/20 16:45 08/03/20 16:44 Dextrose (Dextrose 50%) 25 ml Q30M PRN IV Hypoglycemia 04/25/20 00:00 07/24/20 00:00 Dextrose (Dextrose 50%) 50 ml Q30M PRN IV Hypoglycemia 04/25/20 00:00 07/24/20 00:00 Folic Acid (Folate) 1 mg DAILY ORAL 04/29/20 09:00 05/29/20 08:59 05/07/20 09:10 Insulin Aspart (NovoLOG) BEFORE MEALS AND HS SUBQ 04/25/20 06:30 07/24/20 06:29 04/28/20 06:22 Lamotrigine (LaMICtal) 25 mg DAILY ORAL 04/25/20 09:00 05/25/20 08:59 05/07/20 09:11 Memantine (Namenda) 5 mg TWICE A DAY ORAL 04/25/20 09:00 05/25/20 08:59 05/07/20 09:11 Metoprolol Tartrate (Lopressor) 50 mg BID GT 05/01/20 20:00 07/30/20 19:59 05/07/20 09:10 Olanzapine (ZyPREXA) 5 mg DAILY ORAL 04/25/20 09:00 06/09/20 08:59 05/07/20 09:11 Ondansetron HCl (Zofran) 4 mg Q6H PRN IVP Nausea & Vomiting 04/25/20 00:00 05/25/20 00:00 Polyethylene Glycol (Miralax) 17 gm DAILYPRN PRN ORAL Constipation 04/25/20 00:00 05/25/20 00:00 Quetiapine Fumarate (SEROqueL) 50 mg Q12HR ORAL 04/27/20 11:30 06/11/20 11:29 05/07/20 09:10 Assessment/Plan Problems: (1) Acute encephalopathy (2) Acute massive pulmonary embolism (3) Acute deep vein thrombosis (DVT) (4) Lung collapse (5) Sepsis (6) ATN (acute tubular necrosis) (7) Diabetes (8) HTN (hypertension) (9) CVA (cerebral vascular accident) (10) 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 ,L spastic hemiparesis, vascular dementia (11) Protein-calorie malnutrition, severe Respiratory: monitor respiratory rate, adjust FIO2 Cardiac: continue to monitor HR/BP Renal: F/U I&O, keep IV fluid, check electrolytes Infectious Disease: check cultures Gastrointestinal: continue feedings/current rate Endocrine: continue sliding scale insulin Hematologic: transfuse if hgb<8.5 Neurologic: PRN Ativan, keep patient comfortable Affect: PRN ativan Prophylaxis: Protonix Notes Reviewed: provider relations rep, cardio, 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 with: nurses, consultants, case resolution specialist Luzmaria Downey MD May 07, 2020 10:52
--- NOTE | 2020-05-07 11:15 | Psychiatry Consultation ---
Psychiatry Consultation Psychiatry Consultation Chief Complaint: Dyspnea/Respdistress History of Present Illness: 80-year-old male altered mental status confusion due to respiratory insuffic iency cognition has declined below his baseline as well as attending express daily psychiatric consultation Mental status examination: 80-year-old male appearance disheveled attitude irritable agitated affect guarded restricted intellect poor mood depressed anxious moderately psychomotor agitation judgment is poor orientation x2 speech is low volume slurred thought process disorganized logical insight judgment is poor Allergies: Coded Allergies: No Known Allergies (Unverified , 06/11/17) Medication History Scheduled Amino Acids/Protein Hydrolys (Pro-Stat Liquid), 30 ML ORAL DAILY, (Reported) Aspirin (Aspirin EC), 81 MG ORAL DAILY, (Reported) Docusate Sodium* (Colace*), 100 MG ORAL DAILY, (Reported) Folic Acid* (Folic Acid*), 1 MG ORAL DAILY, (Reported) Heparin Sod (Porcine) (Heparin Sodium*), 5,000 UNITS SUBQ DAILY, (Reported) Lamotrigine* (Lamictal*), 25 MG ORAL DAILY, (Reported) Lisinopril (Lisinopril*), 20 MG ORAL BID, (Reported) Memantine Hcl* (Namenda*), 5 MG ORAL TWICE A DAY, (Reported) Multivitamin With Minerals (Multivitamins With Minerals*), 1 TAB ORAL DAILY, (Reported) Olanzapine* (Zyprexa*), 5 MG ORAL DAILY, (Reported) Sennosides (Senna), 2 TAB PO BEDTIME, (Reported) Scheduled PRN Acetaminophen* (Acetaminophen 325MG Tablet*), 650 MG ORAL Q4H PRN for Fever/Headache/Mild Pain, (Reported) Bisacodyl (Dulcolax), 10 MG RC for Constipation, (Reported) Hydralazine Hcl* (Hydralazine Hcl*), 10 MG ORAL Q4HR PRN for SBP > 160 , (Reported) Ipratropium/Albuterol Sulfate (DuoNeb 0.5-3(2.5)mg/3ml), 1 UNIT HHN EVERY 6 HOURS PRN for Shortness of Breath, (Reported) Magnesium Hydroxide* (Milk Of Magnesia*), 30 ML ORAL EVERY 6 HOURS PRN for Constipation, (Reported) Na Phos,M-B/Na Phos,Di-Ba* (Fleet Enema*), 133 ML RECTAL DAILY PRN for Constipation, (Reported) Nitroglycerin 0.4MG table* (Nitroglycerin*), 0.4 MG SL .Q5MIN X 3 DOSES PRN for CHEST PAIN, (Reported) Miscellaneous Medications Insulin Lispro (Humalog), 0 SUBQ, (Reported) Objective Data Height (Feet): 6 Height (Inches): 0.00 Weight (Pounds): 148 Assessment/Plan Assessment/Plan: Continue the patient on Lamictal, Zyprexa, Ativan and Namenda. 20min of insight oriented psychotherapy to help him recognize his psychical and cogintive deficits so that he has less depression and better impulse control. Diagnosis Marshall I: Schizoaffective bipolar type Dakota Monroe MD May 07, 2020 11:15
[2020-05-07 12:00] VITALS: BP 113/49
--- NOTE | 2020-05-07 12:24 | General Progress Note ---
Subjective ROS Limited/Unobtainable: No Allergies: Coded Allergies: No Known Allergies (Unverified , 06/11/17) Objective Last 24 Hour Vital Signs Date Time Temp Pulse Resp B/P (MAP) Pulse Ox O2 Delivery O2 Flow Rate FiO2 05/07/20 12:00 2.0 05/07/20 12:00 Nasal Cannula 2.0 05/07/20 12:00 100.2 80 16 113/49 (70) 100 05/07/20 09:10 89 121/60 05/07/20 08:00 2.0 05/07/20 08:00 Nasal Cannula 2.0 05/07/20 08:00 75 05/07/20 08:00 99.5 89 19 121/60 (80) 100 05/07/20 07:07 98 Nasal Cannula 2.0 28 05/07/20 04:00 Nasal Cannula 2.0 05/07/20 04:00 65 05/07/20 04:00 2.0 05/07/20 04:00 97.5 66 18 135/68 (90) 99 05/07/20 00:00 Nasal Cannula 2.0 05/07/20 00:00 98.1 69 20 99/53 (68) 100 05/06/20 23:27 70 05/06/20 21:50 99.9 05/06/20 21:00 99.9 05/06/20 20:00 2.0 05/06/20 20:00 100.6 83 20 107/64 (78) 100 05/06/20 20:00 Nasal Cannula 2.0 05/06/20 19:44 100 Nasal Cannula 2.0 28 05/06/20 17:28 76 105/69 05/06/20 16:00 2.0 05/06/20 16:00 76 05/06/20 16:00 98.1 77 17 102/69 (80) 100 05/06/20 16:00 Nasal Cannula 2.0 Intake and Output 05/06/20 05/07/20 19:00 07:00 Intake Total 690 ml 700 ml Output Total 600 ml 525 ml Balance 90 ml 175 ml Free Water 90 ml 150 ml Tube Feeding 600 ml 550 ml Output Urine Total 600 ml 525 ml # Bowel Movements 2 1 Laboratory Tests 05/06/20 16:57: POC Whole Blood Glucose 83 05/06/20 21:24: POC Whole Blood Glucose 89 05/07/20 00:28: POC Whole Blood Glucose [Pending] 05/07/20 02:55: White Blood Count 4.7L, Red Blood Count 3.09L, Hemoglobin 9.4L, Hematocrit 30.0L , Mean Corpuscular Volume 97, Mean Corpuscular Hemoglobin 30.4, Mean Corpuscular Hemoglobin Concent 31.4L, Red Cell Distribution Width 14.1, Platelet Count 231, Mean Platelet Volume 5.9L, Neutrophils (%) (Auto) 60.0, Lymphocytes (%) (Auto) 23.2, Monocytes (%) (Auto) 8.3, Eosinophils (%) (Auto) 7.3H, Basophils (%) (Auto) 1.2, Erythrocyte Sedimentation Rate 48H, Sodium Level 142, Potassium Level 4.6, Chloride Level 110H, Carbon Dioxide Level 32, Anion Gap 0L, Blood Urea Nitrogen 23H, Creatinine 0.7, Estimat Glomerular Filtration Rate > 60, Glucose Level 103, Calcium Level 7.6L, Phosphorus Level 3.1, Magnesium Level 2.2, Total Bilirubin 0.2, Aspartate Amino Transf (AST/SGOT) 29, Alanine Aminotransferase (ALT/SGPT) 27, Alkaline Phosphatase 74, C-Reactive Protein, Quantitative 5.8H, Total Protein 4.5L, Albumin 1.4L, Globulin 3.1, Albumin/Globulin Ratio 0.5L 05/07/20 05:10: POC Whole Blood Glucose 96 05/07/20 12:05: POC Whole Blood Glucose 106 Height (Feet): 6 Height (Inches): 0.00 Weight (Pounds): 148 General Appearance: no apparent distress EENT: normal ENT inspection Neck: supple Cardiovascular: normal rate Respiratory/Chest: decreased breath sounds Abdomen: normal bowel sounds, non tender, soft Extremities: non-tender Assessment/Plan Status: unchanged Assessment/Plan: 1. COPD. 2. Diabetes. 3. Schizophrenia. 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 5. Dementia. 6. Anemia 7. Dysphagia 8. Folate def NGTF folate neg stool ob>>> neg plan PEG for sunday 2 consent given no family available will Nathan Kemp MD May 07, 2020 12:24
--- NOTE | 2020-05-07 12:35 | NUR ---
NURSE NOTES: Dr. Short at the bedside assessing patient, updated on patient mental status while conduction this daily rounds. placed order for G-tube placement since patient is unable to swallow medication or food at this time.
[2020-05-07 12:48] LABS: APPEARANCE,URINE CLEAR; BILIRUBIN, URINE NEGATIVE (NEGATIVE); GLUCOSE, URINE (UA) NEGATIVE (NEGATIVE); KETONES,URINE NEGATIVE (NEGATIVE); LEUKOCYTE ESTERASE ,URINE 1+ (NEGATIVE); NITRITE,URINE NEGATIVE (NEGATIVE); PH,URINE 8 (4.5-8.0); PROTEIN,URINE 2+ (NEGATIVE); UROBILINOGEN,URINE 4 MG/DL (0.0-1.0)
[2020-05-07 12:56] LABS: COLOR,URINE YELLOW
--- NOTE | 2020-05-07 13:25 | Nephrology Progress Note ---
Assessment/Plan Problem List: (1) KORY (acute kidney injury) (2) Hypernatremia (3) Dehydration (4) Acute respiratory failure Assessment Patient presents with acute hypoxic respiratory failure requiring BiPAP Sepsis lactic acidosis KORY Dehydration, hypernatremia History of COPD Anemia Low BMI, malnutrition. BMI of 20.1 History of CVA History of diabetes mellitus Plan May 07: Labs reviewed. Renal parameters stable. Continue per current treatment plan. May 06: Labs reviewed. Renal parameters stable. Continue per consultants. Remains full code. May 05: Labs reviewed. Renal parameters stable. Continue current management. Remains on Venturi mask. Remains full code. Calcium supplement discontinued May 04: Labs reviewed. Renal parameters are stable. Continue per current management. May 03: Labs reviewed. Renal parameters stable. Phosphorus supplement IV given. May 02: Serum sodium up to 144. Stable from renal standpoint of view. Continue per consultants. May 01: Serum serum sodium 136. Will stop D5W IV fluid. 1 dose of Lasix IV. Potassium supplement. Continue to monitor electrolytes. Continue per consultants. April 30: Serum sodium 146. Low phosphorus replaced. Continue pulmonary support and per consultants. April 29: Serum sodium normalized. Electrolytes within normal limit. Remains on nonrebreather mask. Continue per consultants. April 28: Continue D5W. Abnormal electrolytes addressed. Continue per consultants. Remains full code. Remains on nonrebreather mask. April 27: Continue D5W. Continue pulmonary support. Monitor renal parameters and electrolytes. Continue per consultants. Patient full code. Remains on nonrebreathing mask. Contreras catheter IV D5W Monitor electrolytes and renal parameters Antibiotics Avoid nephrotoxic's 2D echocardiogram Per orders Subjective ROS Limited/Unobtainable: Yes Objective Objective Last 24 Hour Vital Signs Date Time Temp Pulse Resp B/P (MAP) Pulse Ox O2 Delivery O2 Flow Rate FiO2 05/07/20 12:00 2.0 05/07/20 12:00 Nasal Cannula 2.0 05/07/20 12:00 100.2 80 16 113/49 (70) 100 05/07/20 09:10 89 121/60 05/07/20 08:00 2.0 05/07/20 08:00 Nasal Cannula 2.0 05/07/20 08:00 75 05/07/20 08:00 99.5 89 19 121/60 (80) 100 05/07/20 07:07 98 Nasal Cannula 2.0 28 05/07/20 04:00 Nasal Cannula 2.0 05/07/20 04:00 65 05/07/20 04:00 2.0 05/07/20 04:00 97.5 66 18 135/68 (90) 99 05/07/20 00:00 Nasal Cannula 2.0 05/07/20 00:00 98.1 69 20 99/53 (68) 100 05/06/20 23:27 70 05/06/20 21:50 99.9 05/06/20 21:00 99.9 05/06/20 20:00 2.0 05/06/20 20:00 100.6 83 20 107/64 (78) 100 05/06/20 20:00 Nasal Cannula 2.0 05/06/20 19:44 100 Nasal Cannula 2.0 28 05/06/20 17:28 76 105/69 05/06/20 16:00 2.0 05/06/20 16:00 76 05/06/20 16:00 98.1 77 17 102/69 (80) 100 05/06/20 16:00 Nasal Cannula 2.0 Intake and Output 05/06/20 05/07/20 19:00 07:00 Intake Total 690 ml 700 ml Output Total 600 ml 525 ml Balance 90 ml 175 ml Free Water 90 ml 150 ml Tube Feeding 600 ml 550 ml Output Urine Total 600 ml 525 ml # Bowel Movements 2 1 Current Medications Medications (Trade) Dose Ordered Sig/Lopez Route PRN Reason Start Time Stop Time Status Last Admin Dose Admin Acetaminophen (Tylenol) 650 mg Q4H PRN ORAL fever 04/25/20 00:00 05/25/20 00:00 05/06/20 21:20 Apixaban (Eliquis) 5 mg BID ORAL 05/06/20 18:00 08/04/20 17:59 05/07/20 09:10 Ceftriaxone Sodium 1 gm/ Dextrose 55 ml @ 110 mls/hr Q24H IVPB 05/07/20 09:00 05/14/20 08:59 05/07/20 09:10 Chlorhexidine Gluconate (Arpita-Hex 2%) 1 applic DAILY@2000 TOPIC 04/29/20 20:00 07/28/20 19:59 05/06/20 21:19 Clonidine HCl (Catapres Tab) 0.1 mg Q8H PRN GT For High Blood Pressure 05/05/20 16:45 08/03/20 16:44 Dextrose (Dextrose 50%) 25 ml Q30M PRN IV Hypoglycemia 04/25/20 00:00 07/24/20 00:00 Dextrose (Dextrose 50%) 50 ml Q30M PRN IV Hypoglycemia 04/25/20 00:00 07/24/20 00:00 Folic Acid (Folate) 1 mg DAILY ORAL 04/29/20 09:00 05/29/20 08:59 05/07/20 09:10 Insulin Aspart (NovoLOG) BEFORE MEALS AND HS SUBQ 04/25/20 06:30 07/24/20 06:29 04/28/20 06:22 Lamotrigine (LaMICtal) 25 mg DAILY ORAL 04/25/20 09:00 05/25/20 08:59 05/07/20 09:11 Memantine (Namenda) 5 mg TWICE A DAY ORAL 04/25/20 09:00 05/25/20 08:59 05/07/20 09:11 Metoprolol Tartrate (Lopressor) 50 mg BID GT 05/01/20 20:00 07/30/20 19:59 05/07/20 09:10 Olanzapine (ZyPREXA) 5 mg DAILY ORAL 04/25/20 09:00 06/09/20 08:59 05/07/20 09:11 Ondansetron HCl (Zofran) 4 mg Q6H PRN IVP Nausea & Vomiting 04/25/20 00:00 05/25/20 00:00 Polyethylene Glycol (Miralax) 17 gm DAILYPRN PRN ORAL Constipation 04/25/20 00:00 05/25/20 00:00 Quetiapine Fumarate (SEROqueL) 50 mg Q12HR ORAL 04/27/20 11:30 06/11/20 11:29 05/07/20 09:10 Laboratory Tests 05/06/20 16:57: POC Whole Blood Glucose 83 05/06/20 21:24: POC Whole Blood Glucose 89 05/07/20 00:28: POC Whole Blood Glucose [Pending] 05/07/20 02:55: White Blood Count 4.7L, Red Blood Count 3.09L, Hemoglobin 9.4L, Hematocrit 30.0L , Mean Corpuscular Volume 97, Mean Corpuscular Hemoglobin 30.4, Mean Corpuscular Hemoglobin Concent 31.4L, Red Cell Distribution Width 14.1, Platelet Count 231, Mean Platelet Volume 5.9L, Neutrophils (%) (Auto) 60.0, Lymphocytes (%) (Auto) 23.2, Monocytes (%) (Auto) 8.3, Eosinophils (%) (Auto) 7.3H, Basophils (%) (Auto) 1.2, Erythrocyte Sedimentation Rate 48H, Sodium Level 142, Potassium Level 4.6, Chloride Level 110H, Carbon Dioxide Level 32, Anion Gap 0L, Blood Urea Nitrogen 23H, Creatinine 0.7, Estimat Glomerular Filtration Rate > 60, Glucose Level 103, Calcium Level 7.6L, Phosphorus Level 3.1, Magnesium Level 2.2, Total Bilirubin 0.2, Aspartate Amino Transf (AST/SGOT) 29, Alanine Aminotransferase (ALT/SGPT) 27, Alkaline Phosphatase 74, C-Reactive Protein, Quantitative 5.8H, Total Protein 4.5L, Albumin 1.4L, Globulin 3.1, Albumin/Globulin Ratio 0.5L 05/07/20 05:10: POC Whole Blood Glucose 96 05/07/20 12:00: Urine Color Yellow, Urine Appearance Clear, Urine pH 8, Urine Specific [place] 1.010, Urine Protein 2+H, Urine Glucose (UA) Negative, Urine Ketones Negative, Urine Blood 1+H, Urine Nitrite Negative, Urine Bilirubin Negative, Urine Urobilinogen 4H, Urine Leukocyte Esterase 1+H, Urine RBC 2-4H, Urine WBC 5-10H, Urine Squamous Epithelial Cells Occasional, Urine Bacteria Few, Urine Yeast FewH 05/07/20 12:05: POC Whole Blood Glucose 106 Height (Feet): 6 Height (Inches): 0.00 Weight (Pounds): 148 General Appearance: no apparent distress EENT: other - Trach to vent Cardiovascular: normal rate Respiratory/Chest: decreased breath sounds Abdomen: soft Maximino Castillo MD May 07, 2020 13:25
--- NOTE | 2020-05-07 13:42 | NUR ---
NURSE NOTES: Dr. Loving updated the urine culture and urinalysis reflex has been collected and sent to laboratory for analysis. no further orders given at this time.
[2020-05-07 16:00] VITALS: BP 119/65
--- NOTE | 2020-05-07 16:53 | NUR ---
NURSE NOTES: Dr. Whitney updated on patient cardica rhythm. noted the rhythm at this time to be at sinus rhythm with bigeminy no order given at this time.
--- NOTE | 2020-05-07 17:10 | Cardiology Report ---
APPROVED REPORT EKG Measurement Heart [id number] MS 134P [id number] <Conclusion> Wandering pacemaker Otherwise normal ECG
--- NOTE | 2020-05-07 17:24 | Cardiology Progress Note ---
Assessment/Plan Status: progressing Assessment/Plan 1. Wandering pacemaker or multifocal atrial rhythm, now in sinus rhythm with APC bigeminy, continue metoprolol. 2. Dyspnea most likely due to bilateral pulmonary emboli, on Eliquis, 2D echo reveals normal LV function. 3. History of CVA with left hemiparesis. 4. Hypoxic respiratory failure, on bipap mask. 5. Diabetes Mellitus, continue ASA and statins. 6. Dysphagia Subjective Subjective APC bigeminy is noted. On NC oxygen Objective Last 24 Hour Vital Signs Date Time Temp Pulse Resp B/P (MAP) Pulse Ox O2 Delivery O2 Flow Rate FiO2 05/07/20 12:00 2.0 05/07/20 12:00 Nasal Cannula 2.0 05/07/20 12:00 100.2 80 16 113/49 (70) 100 05/07/20 09:10 89 121/60 05/07/20 08:00 2.0 05/07/20 08:00 Nasal Cannula 2.0 05/07/20 08:00 75 05/07/20 08:00 99.5 89 19 121/60 (80) 100 05/07/20 07:07 98 Nasal Cannula 2.0 28 05/07/20 04:00 Nasal Cannula 2.0 05/07/20 04:00 65 05/07/20 04:00 2.0 05/07/20 04:00 97.5 66 18 135/68 (90) 99 05/07/20 00:00 Nasal Cannula 2.0 05/07/20 00:00 98.1 69 20 99/53 (68) 100 05/06/20 23:27 70 05/06/20 21:50 99.9 05/06/20 21:00 99.9 05/06/20 20:00 2.0 05/06/20 20:00 100.6 83 20 107/64 (78) 100 05/06/20 20:00 Nasal Cannula 2.0 05/06/20 19:44 100 Nasal Cannula 2.0 28 05/06/20 17:28 76 105/69 Intake and Output 05/06/20 05/07/20 19:00 07:00 Intake Total 690 ml 700 ml Output Total 600 ml 525 ml Balance 90 ml 175 ml Free Water 90 ml 150 ml Tube Feeding 600 ml 550 ml Output Urine Total 600 ml 525 ml # Bowel Movements 2 1 2D Echo: LVEF 55%, limited views Laboratory Tests Test 05/06/20 21:24 05/07/20 00:28 05/07/20 02:55 05/07/20 05:10 POC Whole Blood Glucose 89 MG/DL (74-106) Pending 96 MG/DL (74-106) White Blood Count 4.7 K/UL (4.8-10.8) L Red Blood Count 3.09 M/UL (4.70-6.10) L Hemoglobin 9.4 G/DL (14.2-18.0) L Hematocrit 30.0 % (42.0-52.0) L Mean Corpuscular Volume 97 FL (80-99) Mean Corpuscular Hemoglobin 30.4 PG (27.0-31.0) Mean Corpuscular Hemoglobin Concent 31.4 G/DL (32.0-36.0) L Red Cell Distribution Width 14.1 % (11.6-14.8) Platelet Count 231 K/UL (150-450) Mean Platelet Volume 5.9 FL (6.5-10.1) L Neutrophils (%) (Auto) 60.0 % (45.0-75.0) Lymphocytes (%) (Auto) 23.2 % (20.0-45.0) Monocytes (%) (Auto) 8.3 % (1.0-10.0) Eosinophils (%) (Auto) 7.3 % (0.0-3.0) H Basophils (%) (Auto) 1.2 % (0.0-2.0) Erythrocyte Sedimentation Rate 48 MM/HR (0-20) H Sodium Level 142 MMOL/L (136-145) Potassium Level 4.6 MMOL/L (3.5-5.1) Chloride Level 110 MMOL/L (98-107) H Carbon Dioxide Level 32 MMOL/L (21-32) Anion Gap 0 mmol/L (5-15) L Blood Urea Nitrogen 23 mg/dL (7-18) H Creatinine 0.7 MG/DL (0.55-1.30) Estimat Glomerular Filtration Rate > 60 mL/min (>60) Glucose Level 103 MG/DL (74-106) Calcium Level 7.6 MG/DL (8.5-10.1) L Phosphorus Level 3.1 MG/DL (2.5-4.9) Magnesium Level 2.2 MG/DL (1.8-2.4) Total Bilirubin 0.2 MG/DL (0.2-1.0) Aspartate Amino Transf (AST/SGOT) 29 U/L (15-37) Alanine Aminotransferase (ALT/SGPT) 27 U/L (12-78) Alkaline Phosphatase 74 U/L (46-116) C-Reactive Protein, Quantitative 5.8 mg/dL (0.00-0.90) H Total Protein 4.5 G/DL (6.4-8.2) L Albumin 1.4 G/DL (3.4-5.0) L Globulin 3.1 g/dL Albumin/Globulin Ratio 0.5 (1.0-2.7) L Test 05/07/20 12:00 05/07/20 12:05 Urine Color Yellow Urine Appearance Clear Urine pH 8 (4.5-8.0) Urine Specific [place] 1.010 (1.005-1.035) Urine Protein 2+ (NEGATIVE) H Urine Glucose (UA) Negative (NEGATIVE) Urine Ketones Negative (NEGATIVE) Urine Blood 1+ (NEGATIVE) H Urine Nitrite Negative (NEGATIVE) Urine Bilirubin Negative (NEGATIVE) Urine Urobilinogen 4 MG/DL (0.0-1.0) H Urine Leukocyte Esterase 1+ (NEGATIVE) H Urine RBC 2-4 /HPF (0 - 0) H Urine WBC 5-10 /HPF (0 - 0) H Urine Squamous Epithelial Cells Occasional /LPF Urine Bacteria Few /HPF (NONE) Urine Yeast Few /HPF (NONE) H POC Whole Blood Glucose 106 MG/DL (74-106) Microbiology Date/Time Source Procedure Growth Status 05/05/20 09:37 Blood Blood Culture - Preliminary NO GROWTH AFTER 24 HOURS Resulted 05/05/20 09:27 Blood Blood Culture - Preliminary NO GROWTH AFTER 24 HOURS Resulted Objective HEENT: normocephalic, atraumatic, bilateral eye PERRL, bilateral eye EOMI, on NC. Neck: JVP cannot be assessed, no carotid bruit. Respiratory: Bilateral rhonchi Cardiovascular: normal S1S2, irregular rhythm, no murmurs, gallops or rubs Gastrointestinal: non tender, soft, non-distended, no guarding Extremities: No edema, clubbing or cyanosis. Neurologic: Left hemiparesis, responds to commands, localizes to pain Gama Whitney MD May 07, 2020 17:24
--- NOTE | 2020-05-07 17:55 | Diagnostic Imaging Report ---
EXAM: US Duplex Bilateral Lower Extremities Veins CLINICAL HISTORY: DVT TECHNIQUE: Real-time duplex ultrasound scan of the bilateral lower extremity veins integrating B-mode two-dimensional vascular structure, Doppler spectral analysis, color flow Doppler imaging and compression. COMPARISON: No available at the time of dictation. FINDINGS: Right deep veins: Acute right DVT involving proximal superficial femoral vein through the popliteal vein. Right superficial veins: Unremarkable. No thrombus in the visualized right great saphenous vein. Left deep veins: Acute left DVT involving proximal superficial femoral vein through the popliteal vein and calf. Left superficial veins: Unremarkable. No thrombus in the visualized left great saphenous vein. Soft tissues: No acute findings. No popliteal cyst. IMPRESSION: 1. Acute right DVT involving proximal superficial femoral vein through the popliteal vein. 2. Acute left DVT involving proximal superficial femoral vein through the popliteal vein and calf. <MYCVCSECTION> Communications: 05/07/20 18:27 Call Doctor Regarding Acute DVT, called Nurse Hathaway due to no MD call back on 05/07 18:26 (-08:00)
--- NOTE | 2020-05-07 18:25 | NUR ---
NURSE NOTES: Dr. Dubon updated on the results of the venous duplex scan. the results reveled bilateral right and left proximal superficial femoral vein and through the popliteal veins. no new verbal orders given at this time. continue eliquis as ordered.
--- NOTE | 2020-05-07 19:35 | NUR ---
NURSE NOTES: received report from CRUZ Hathaway. Pt was asleep in bed, afebrile and has no respiratory distress noted. on NC at 3lpm .pt saturating at 99-100%. On Glucerna 1.2 at 50cc/hr via left NGT infusing well, no sediments and residuals noted. With ELI PICC line and Left AC 20g intact, patent and asymptomatic. With Fc to urine bag draining well. Needs were attended. HOB elevated. call light within reach. bed rails are up and wheels are locked. Continue to monitor the patient.
--- NOTE | 2020-05-07 19:45 | NUR ---
NURSE HAND-OFF REPORT: Latest Vital Signs: Temperature 99.5 , Pulse 78 , B/P 131 /74 , Respiratory Rate 22 , O2 SAT 98 , Nasal Cannula, O2 Flow Rate 2.0 . Vital Sign Comment: EKG Rhythm: Sinus Rhythm Rhythm change?: N Notified?: N -Dr. Devonte SAAVEDRA Response: No New Orders Received Latest Andersen Fall Score: 70 Fall Risk: High Risk Safety Measures: Call light Within Reach, Bed Alarm Zone 2, Side Rails Side Rails x3, Bed position Low and Locked. Fall Precautions: Yellow Socks Yellow Gown Door Sign Patient Fall Education Report given to CRUZ PACE.
[2020-05-07 20:00] VITALS: BP 125/75
--- NOTE | 2020-05-07 20:13 | Diagnostic Imaging Report ---
EXAM: XR Chest, 1 View CLINICAL HISTORY: COUGH TECHNIQUE: Frontal view of the chest. COMPARISON: 05/04/2020 FINDINGS: Lungs: Low lung volumes with bronchovascular crowding. Unchanged retrocardiac atelectasis without or with consolidation. Pleural space: Unchanged tiny left pleural effusion. No pneumothorax. Heart: Unremarkable. No cardiomegaly. Mediastinum: Unremarkable. Bones/joints: No acute abnormality Tubes, lines and devices: Enteric tube with tip and proximal sideport below the gastroesophageal junction. Unchanged right upper extremity PICC with tip in the SVC confluence region. IMPRESSION: 1. Enteric tube with tip and proximal sideport below the gastroesophageal junction. 2. Unchanged right upper extremity PICC with tip in the SVC confluence region. 3. Low lung volumes with bronchovascular crowding. 4. Unchanged retrocardiac atelectasis without or with consolidation. 5. Unchanged tiny left pleural effusion.
[2020-05-07] MEDS ORDERED: Miralax 17gm pkt NG PRN (20:45)
[2020-05-07] MEDS ORDERED: Acetaminophen 650mg/20.3ml NG PRN (20:45)
[2020-05-07] MEDS: Dyna-Hex 2% Top Sol 2oz TOPIC SCH (20:57)
[2020-05-08] VITALS: BP 111/66
--- NOTE | 2020-05-08 02:30 | NUR ---
NURSE NOTES: Pt was provided partial bed bath. Gown and linen changed. Pt tolerated well. Continue to monitor the patient.
[2020-05-08 04:00] VITALS: BP 115/60
[2020-05-08 04:57] LABS: BASOPHILS % (AUTO) 1.1 % (0.0-2.0); EOSINOPHILS % (AUTO) 6.1 % (0.0-3.0); HEMATOCRIT 29.5 % (42.0-52.0); HEMOGLOBIN 9.3 G/DL (14.2-18.0); LYMPHOCYTES % (AUTO) 24.3 % (20.0-45.0); MEAN CORPUSCULAR VOLUME 96 FL (80-99); MONOCYTES % (AUTO) 9.1 % (1.0-10.0); NEUTROPHILS % (AUTO) 59.4 % (45.0-75.0); PLATELET COUNT 247 K/UL (150-450); RED BLOOD COUNT 3.08 M/UL (4.70-6.10); WHITE BLOOD COUNT 5.4 K/UL (4.8-10.8)
[2020-05-08 05:14] LABS: ANION GAP 2 mmol/L (5-15); BLOOD UREA NITROGEN 24 mg/dL (7-18); CALCIUM 7.9 MG/DL (8.5-10.1); CARBON DIOXIDE 29 MMOL/L (21-32); CHLORIDE 109 MMOL/L (98-107); POTASSIUM 4.5 MMOL/L (3.5-5.1); SODIUM 140 MMOL/L (136-145)
[2020-05-08 05:41] LABS: CREATININE 0.6 MG/DL (0.55-1.30)
[2020-05-08] MEDS: NovoLOG Insulin Flexpen SUBQ SCH ×3 (06:00→17:29)
--- NOTE | 2020-05-08 07:20 | NUR ---
NURSE HAND-OFF REPORT: Important Events on Shift: none Patient Status: stable Diet: glucerna at 50cc/hr Pending Orders:n Pending Results/Labs:n Pending MD notification:n Latest Vital Signs: Temperature 97.2 , Pulse 69 , B/P 115 /60 , Respiratory Rate 17 , O2 SAT 99 , Nasal Cannula, O2 Flow Rate 3.0 . Vital Sign Comment:n EKG Rhythm: Sinus Rhythm Rhythm change?: N MD Notified?: N -Dr. Devonte SAAVEDRA Response: No New Orders Received Latest Andersen Fall Score: 70 Fall Risk: High Risk Safety Measures: Call light Within Reach, Bed Alarm Zone 2, Side Rails Side Rails x3, Bed position Low and Locked. Fall Precautions: Yellow Socks Yellow Gown Door Sign Patient Fall Education Report given to CRUZ Koenig/ CRUZ Gutierrez.
--- NOTE | 2020-05-08 07:30 | NUR ---
NURSE NOTES: Received report from CRUZ PACE.
--- NOTE | 2020-05-08 07:57 | NUR ---
NURSE NOTES: Patient is on bed, awake, and opens eyes. Patient has no signs of distress, and no grimacing noted. Patient is on NC 2L. O2 sat at 98%. HOB elevated at all times with NGT placed on L nares running Glucerna 1.2 at 50cc/hr. Patient has a cunningham catheter patent, intact, and draining yellow urine. Has a R UA PICC line 2 lumen, patent, intact, TKO, and a L AC 20 g IV saline locked. Bed is on low position, locked, call light within reach. Patient will cont. to monitor.
[2020-05-08 08:00] VITALS: BP 142/68
--- NOTE | 2020-05-08 08:23 | Infectious Diseases Prog Note ---
Assessment/Plan 80yo M with: Fever x1 05/05, again 05/06 Acute BLE DVTs 05/05 BCx NTD CXR: Significantly improved aeration of the left lung compared to one day prior. Residual dense atelectasis/consolidation of the left base. Interval development of some patchy opacities at the right base. Developing pneumonia not excluded. 05/07 CXR: No changes from prior 05/07 BLE US: 1. Acute right DVT involving proximal superficial femoral vein through the popliteal vein. 2. Acute left DVT involving proximal superficial femoral vein through the popliteal vein and calf. 05/07 UA 5-10 WBC, UCx NTD Sepsis UTI -u/a wbc 50-60, nit neg, leuk +1; ucx Neg Gram positive bacteremia- m/l contaminant -04/24 sp cx 1/2 S. epi; 04/26 Bcx NTD Fever; SP No leukocytosis -04/26 influenza screen neg CXR: Borderline cardiomegaly. No acute process -04/24 CXR: No acute cardiopulmonary disease. covid rapid PCR neg Acute hypoxic resp failure- SP NRB>Bipap> VM . BiPAP B/l DVT and PE -CTA chest: Positive for bilateral pulmonary emboli Equivocal evidence of right heart strain; RV /LV ratio around 0.5 but is somewhat difficult to assess due to ventricular muscle hypertrophy. Left basilar compressive atelectasis, pleural fluid, and possibly some consolidation. Trace right pleural fluid. Subtle mosaic perfusion pattern, nonspecific but probably represents very mild pulmonary edema. Cardiomegaly. Nasogastric tube -V. duplex: : On the right, occlusive thrombus is seen within the downstream common femoral vein, the femoral vein, popliteal vein as well as within multiple calf veins. On the left, occlusive thrombus is seen within the femoral vein and popliteal vein the common femoral vein and calf veins are patent. COPD DM2 HTN schizophrenia malnutrition CVA w/ left spastic hemiparesis vascular dementia schizoaffective-bipolar type SNF resident (Everette peterson) Plan: Cont CTX #2 / 5 for possible aspiration pneumonitis given new fevers, although could also be 2/2 acute BLE DVTs F/u UCx 05/07 F/u BCx 05/05 Trend temp curve closely 05/01 SP cefepime #8 04/30 SP vanco IV #6 -f/u cx -Monitor CBC/CMP, temperatures -aspiration precautions D/w RN Thank you for consulting [facility]. Will continue to follow along with you. Subjective Allergies: Coded Allergies: No Known Allergies (Unverified , 06/11/17) Febrile to 101.8 WBC 5.4 NAD in bed BLE US w/ acute DVTs Objective Last 24 Hour Vital Signs Date Time Temp Pulse Resp B/P (MAP) Pulse Ox O2 Delivery O2 Flow Rate FiO2 05/08/20 07:22 98 Nasal Cannula 2.0 28 05/08/20 04:05 69 05/08/20 04:00 Nasal Cannula 2.0 05/08/20 04:00 3.0 05/08/20 04:00 97.2 68 17 115/60 (78) 99 05/08/20 00:00 99.0 66 20 111/66 (81) 99 05/08/20 00:00 Nasal Cannula 2.0 05/07/20 23:37 69 05/07/20 21:28 98.2 05/07/20 20:00 101.8 63 20 125/75 (92) 99 05/07/20 20:00 Nasal Cannula 2.0 05/07/20 20:00 3.0 05/07/20 20:00 66 05/07/20 19:26 98 Nasal Cannula 2.0 28 05/07/20 18:35 78 131/74 05/07/20 16:00 Nasal Cannula 2.0 05/07/20 16:00 76 05/07/20 16:00 2.0 05/07/20 16:00 99.5 78 22 119/65 (83) 99 05/07/20 12:00 2.0 05/07/20 12:00 Nasal Cannula 2.0 05/07/20 12:00 100.2 80 16 113/49 (70) 100 05/07/20 12:00 67 05/07/20 09:10 89 121/60 Height (Feet): 6 Height (Inches): 0.00 Weight (Pounds): 148 Gen: NAD in bed HEENT: NCAT CV: RRR Pulm: CTAB Abd: Soft, NTND Ext: No c/c/e Neuro: Sleeping Microbiology Date/Time Source Procedure Growth Status 05/07/20 12:00 Urine,Clean Catch Urine Culture - Preliminary NO GROWTH Resulted 05/05/20 09:37 Blood Blood Culture - Preliminary NO GROWTH AFTER 48 HOURS Resulted 05/05/20 09:27 Blood Blood Culture - Preliminary NO GROWTH AFTER 48 HOURS Resulted Laboratory Tests Test 05/07/20 12:00 05/07/20 12:05 05/07/20 18:12 05/07/20 20:55 Urine Color Yellow Urine Appearance Clear Urine pH 8 (4.5-8.0) Urine Specific [place] 1.010 (1.005-1.035) Urine Protein 2+ (NEGATIVE) H Urine Glucose (UA) Negative (NEGATIVE) Urine Ketones Negative (NEGATIVE) Urine Blood 1+ (NEGATIVE) H Urine Nitrite Negative (NEGATIVE) Urine Bilirubin Negative (NEGATIVE) Urine Urobilinogen 4 MG/DL (0.0-1.0) H Urine Leukocyte Esterase 1+ (NEGATIVE) H Urine RBC 2-4 /HPF (0 - 0) H Urine WBC 5-10 /HPF (0 - 0) H Urine Squamous Epithelial Cells Occasional /LPF Urine Bacteria Few /HPF (NONE) Urine Yeast Few /HPF (NONE) H POC Whole Blood Glucose 106 MG/DL (74-106) 106 MG/DL (74-106) 103 MG/DL (74-106) Test 05/08/20 03:15 05/08/20 06:17 White Blood Count 5.4 K/UL (4.8-10.8) Red Blood Count 3.08 M/UL (4.70-6.10) L Hemoglobin 9.3 G/DL (14.2-18.0) L Hematocrit 29.5 % (42.0-52.0) L Mean Corpuscular Volume 96 FL (80-99) Mean Corpuscular Hemoglobin 30.3 PG (27.0-31.0) Mean Corpuscular Hemoglobin Concent 31.6 G/DL (32.0-36.0) L Red Cell Distribution Width 14.0 % (11.6-14.8) Platelet Count 247 K/UL (150-450) Mean Platelet Volume 6.2 FL (6.5-10.1) L Neutrophils (%) (Auto) 59.4 % (45.0-75.0) Lymphocytes (%) (Auto) 24.3 % (20.0-45.0) Monocytes (%) (Auto) 9.1 % (1.0-10.0) Eosinophils (%) (Auto) 6.1 % (0.0-3.0) H Basophils (%) (Auto) 1.1 % (0.0-2.0) Sodium Level 140 MMOL/L (136-145) Potassium Level 4.5 MMOL/L (3.5-5.1) Chloride Level 109 MMOL/L (98-107) H Carbon Dioxide Level 29 MMOL/L (21-32) Anion Gap 2 mmol/L (5-15) L Blood Urea Nitrogen 24 mg/dL (7-18) H Creatinine 0.6 MG/DL (0.55-1.30) Estimat Glomerular Filtration Rate > 60 mL/min (>60) Glucose Level 111 MG/DL (74-106) H Calcium Level 7.9 MG/DL (8.5-10.1) L POC Whole Blood Glucose 116 MG/DL (74-106) H Current Medications Medications (Trade) Dose Ordered Sig/Lopez Route PRN Reason Start Time Stop Time Status Last Admin Dose Admin Acetaminophen (Tylenol) 650 mg Q4H PRN NG fever 05/07/20 20:45 06/06/20 20:44 05/07/20 20:58 Apixaban (Eliquis) 5 mg BID NGT 05/08/20 09:00 08/06/20 08:59 Ceftriaxone Sodium 1 gm/ Dextrose 55 ml @ 110 mls/hr Q24H IVPB 05/07/20 09:00 05/14/20 08:59 05/07/20 09:10 Chlorhexidine Gluconate (Arpita-Hex 2%) 1 applic DAILY@2000 TOPIC 04/29/20 20:00 07/28/20 19:59 05/07/20 20:57 Clonidine HCl (Catapres Tab) 0.1 mg Q8H PRN GT For High Blood Pressure 05/05/20 16:45 08/03/20 16:44 Dextrose (Dextrose 50%) 25 ml Q30M PRN IV Hypoglycemia 04/25/20 00:00 07/24/20 00:00 Dextrose (Dextrose 50%) 50 ml Q30M PRN IV Hypoglycemia 04/25/20 00:00 07/24/20 00:00 Folic Acid (Folate) 1 mg DAILY NG 05/08/20 09:00 06/07/20 08:59 Insulin Aspart (NovoLOG) EVERY 6 HOURS SUBQ 05/08/20 06:00 07/24/20 18:00 Lamotrigine (LaMICtal) 25 mg DAILY NG 05/08/20 09:00 06/07/20 08:59 Memantine (Namenda) 5 mg TWICE A DAY NG 05/08/20 09:00 06/07/20 08:59 Metoprolol Tartrate (Lopressor) 50 mg BID GT 05/01/20 20:00 07/30/20 19:59 05/07/20 18:35 Olanzapine (ZyPREXA) 5 mg DAILY NG 05/08/20 09:00 06/22/20 08:59 Ondansetron HCl (Zofran) 4 mg Q6H PRN IVP Nausea & Vomiting 04/25/20 00:00 05/25/20 00:00 Polyethylene Glycol (Miralax) 17 gm DAILYPRN PRN NG Constipation 05/07/20 20:45 06/06/20 20:44 Quetiapine Fumarate (SEROqueL) 50 mg Q12HR NG 05/07/20 21:00 06/21/20 20:59 05/07/20 20:57 Raina Loving M.D. May 08, 2020 08:23
[2020-05-08] MEDS: Eliquis 5mg tablet NGT SCH ×2 (08:42→17:29)
[2020-05-08] MEDS: Memantine 10mg tab NG SCH ×2 (08:43→17:28)
[2020-05-08] MEDS: cefTRIAXone 1 GM in D5W 55 ML IVPB SCH (08:44)
[2020-05-08] MEDS: Metoprolol Tartrate 50mg tab GT SCH ×2 (08:45→17:28)
--- NOTE | 2020-05-08 09:00 | NUR ---
NURSE NOTES: Seen by Luis Alberto STONER OUT with [facility].
--- NOTE | 2020-05-08 09:54 | Psychiatry Consultation ---
Psychiatry Consultation Psychiatry Consultation Chief Complaint: Dyspnea/Respdistress History of Present Illness: 80-year-old male 72-year-old male respiratory insufficiency is got as well as attending is requested daily psychiatric consultation to prevent further decline in his cognition Mental status examination: 80-year-old male appearance is disheveled attitude irritable agitated affect guarded restricted intellect poor mood depressed anxious motor activity psychomotor agitation judgment is poor orientation x2 speech is low volume slurred thought processes organized and logical thought content not hallucinations. Delusions Insight judgment is poor Allergies: Coded Allergies: No Known Allergies (Unverified , 06/11/17) Medication History Scheduled Amino Acids/Protein Hydrolys (Pro-Stat Liquid), 30 ML ORAL DAILY, (Reported) Aspirin (Aspirin EC), 81 MG ORAL DAILY, (Reported) Docusate Sodium* (Colace*), 100 MG ORAL DAILY, (Reported) Folic Acid* (Folic Acid*), 1 MG ORAL DAILY, (Reported) Heparin Sod (Porcine) (Heparin Sodium*), 5,000 UNITS SUBQ DAILY, (Reported) Lamotrigine* (Lamictal*), 25 MG ORAL DAILY, (Reported) Lisinopril (Lisinopril*), 20 MG ORAL BID, (Reported) Memantine Hcl* (Namenda*), 5 MG ORAL TWICE A DAY, (Reported) Multivitamin With Minerals (Multivitamins With Minerals*), 1 TAB ORAL DAILY, (Reported) Olanzapine* (Zyprexa*), 5 MG ORAL DAILY, (Reported) Sennosides (Senna), 2 TAB PO BEDTIME, (Reported) Scheduled PRN Acetaminophen* (Acetaminophen 325MG Tablet*), 650 MG ORAL Q4H PRN for Fever/Headache/Mild Pain, (Reported) Bisacodyl (Dulcolax), 10 MG RC for Constipation, (Reported) Hydralazine Hcl* (Hydralazine Hcl*), 10 MG ORAL Q4HR PRN for SBP > 160 , (Reported) Ipratropium/Albuterol Sulfate (DuoNeb 0.5-3(2.5)mg/3ml), 1 UNIT HHN EVERY 6 HOURS PRN for Shortness of Breath, (Reported) Magnesium Hydroxide* (Milk Of Magnesia*), 30 ML ORAL EVERY 6 HOURS PRN for Constipation, (Reported) Na Phos,M-B/Na Phos,Di-Ba* (Fleet Enema*), 133 ML RECTAL DAILY PRN for Constipation, (Reported) Nitroglycerin 0.4MG table* (Nitroglycerin*), 0.4 MG SL .Q5MIN X 3 DOSES PRN for CHEST PAIN, (Reported) Miscellaneous Medications Insulin Lispro (Humalog), 0 SUBQ, (Reported) Objective Data Height (Feet): 6 Height (Inches): 0.00 Weight (Pounds): 148 Assessment/Plan Assessment/Plan: Continue the patient on Lamictal, Zyprexa, Ativan and Namenda. 20min of insight oriented psychotherapy to help him recognize his psychical and cogintive deficits so that he has less depression and better impulse control. Diagnosis [place]: Schizoaffective bipolar type Dakota Monroe MD May 08, 2020 09:54
--- NOTE | 2020-05-08 10:07 | General Progress Note ---
Subjective Allergies: Coded Allergies: No Known Allergies (Unverified , 06/11/17) All Systems: reviewed and negative except above Subjective o2nc ng Objective Last 24 Hour Vital Signs Date Time Temp Pulse Resp B/P (MAP) Pulse Ox O2 Delivery O2 Flow Rate FiO2 05/08/20 08:45 70 142/68 05/08/20 07:22 98 Nasal Cannula 2.0 28 05/08/20 04:05 69 05/08/20 04:00 Nasal Cannula 2.0 05/08/20 04:00 3.0 05/08/20 04:00 97.2 68 17 115/60 (78) 99 05/08/20 00:00 99.0 66 20 111/66 (81) 99 05/08/20 00:00 Nasal Cannula 2.0 05/07/20 23:37 69 05/07/20 21:28 98.2 05/07/20 20:00 101.8 63 20 125/75 (92) 99 05/07/20 20:00 Nasal Cannula 2.0 05/07/20 20:00 3.0 05/07/20 20:00 66 05/07/20 19:26 98 Nasal Cannula 2.0 28 05/07/20 18:35 78 131/74 05/07/20 16:00 Nasal Cannula 2.0 05/07/20 16:00 76 05/07/20 16:00 2.0 05/07/20 16:00 99.5 78 22 119/65 (83) 99 05/07/20 12:00 2.0 05/07/20 12:00 Nasal Cannula 2.0 05/07/20 12:00 100.2 80 16 113/49 (70) 100 05/07/20 12:00 67 Intake and Output 05/07/20 05/08/20 19:00 07:00 Intake Total 705 ml 650 ml Output Total 850 ml 850 ml Balance -145 ml -200 ml Free Water 50 ml IV Total 55 ml Tube Feeding 600 ml 600 ml Other 50 ml Output Urine Total 850 ml 850 ml # Bowel Movements 2 Laboratory Tests 05/07/20 12:00: Urine Color Yellow, Urine Appearance Clear, Urine pH 8, Urine Specific [place] 1.010, Urine Protein 2+H, Urine Glucose (UA) Negative, Urine Ketones Negative, Urine Blood 1+H, Urine Nitrite Negative, Urine Bilirubin Negative, Urine Urobilinogen 4H, Urine Leukocyte Esterase 1+H, Urine RBC 2-4H, Urine WBC 5-10H, Urine Squamous Epithelial Cells Occasional, Urine Bacteria Few, Urine Yeast FewH 05/07/20 12:05: POC Whole Blood Glucose 106 05/07/20 18:12: POC Whole Blood Glucose 106 05/07/20 20:55: POC Whole Blood Glucose 103 05/08/20 03:15: White Blood Count 5.4, Red Blood Count 3.08L, Hemoglobin 9.3L, Hematocrit 29.5L, Mean Corpuscular Volume 96, Mean Corpuscular Hemoglobin 30.3, Mean Corpuscular Hemoglobin Concent 31.6L, Red Cell Distribution Width 14.0, Platelet Count 247, Mean Platelet Volume 6.2L, Neutrophils (%) (Auto) 59.4, Lymphocytes (%) (Auto) 24.3, Monocytes (%) (Auto) 9.1, Eosinophils (%) (Auto) 6.1H, Basophils (%) (Auto) 1.1, Sodium Level 140, Potassium Level 4.5, Chloride Level 109H, Carbon Dioxide Level 29, Anion Gap 2L, Blood Urea Nitrogen 24H, Creatinine 0.6, Estimat Glomerular Filtration Rate > 60, Glucose Level 111H, Calcium Level 7.9L 05/08/20 06:17: POC Whole Blood Glucose 116H Height (Feet): 6 Height (Inches): 0.00 Weight (Pounds): 148 General Appearance: lethargic EENT: normal ENT inspection Neck: normal alignment Cardiovascular: normal peripheral pulses, normal rate, regular rhythm Respiratory/Chest: chest wall non-tender, lungs clear, normal breath sounds Abdomen: normal bowel sounds, non tender, soft Extremities: normal inspection Edema: no edema noted Arm (L), no edema noted Arm (R), no edema noted Leg (L), no edema noted Leg (R), no edema noted Pedal (L), no edema noted Pedal (R), no edema noted Generalized Neurologic: motor weakness Skin: normal pigmentation, warm/dry Assessment/Plan Problem List: (1) UTI (urinary tract infection) ICD Codes: N39.0 - Urinary tract infection, site not specified SNOMED: 76945871 (2) CVA (cerebral vascular accident) ICD Codes: I63.9 - Cerebral infarction, unspecified SNOMED: 986696275 (3) KORY (acute kidney injury) ICD Codes: N17.9 - Acute kidney failure, unspecified SNOMED: 8235753, 32918268 (4) HTN (hypertension) ICD Codes: I10 - Essential (primary) hypertension SNOMED: 27446346 (5) Diabetes ICD Codes: E11.9 - Type 2 diabetes mellitus without complications SNOMED: 71070343 (6) Dehydration ICD Codes: E86.0 - Dehydration SNOMED: 24171952 (7) Hypernatremia ICD Codes: E87.0 - Hyperosmolality and hypernatremia SNOMED: 62278530 (8) Acute respiratory failure ICD Codes: J96.00 - Acute respiratory failure, unspecified whether with hypoxia or hypercapnia SNOMED: 62097340 Status: unchanged Assessment/Plan: o2 pulm tx abx pt diet cbc bmp am aru and ltach eval need peg German Carlin DO May 08, 2020 10:07
--- NOTE | 2020-05-08 10:15 | NUR ---
NURSE NOTES: Seen by Dr. Carlin with [facility].
--- NOTE | 2020-05-08 10:23 | Nephrology Progress Note ---
Assessment/Plan Problem List: (1) KORY (acute kidney injury) (2) Hypernatremia (3) Dehydration (4) Acute respiratory failure Assessment Patient presents with acute hypoxic respiratory failure requiring BiPAP Sepsis lactic acidosis KORY Dehydration, hypernatremia History of COPD Anemia Low BMI, malnutrition. BMI of 20.1 History of CVA History of diabetes mellitus Plan May 08: Labs reviewed. Renal parameters stable. Continue per current management. May 07: Labs reviewed. Renal parameters stable. Continue per current treatment plan. May 06: Labs reviewed. Renal parameters stable. Continue per consultants. Remains full code. May 05: Labs reviewed. Renal parameters stable. Continue current management. Remains on Venturi mask. Remains full code. Calcium supplement discontinued May 04: Labs reviewed. Renal parameters are stable. Continue per current management. May 03: Labs reviewed. Renal parameters stable. Phosphorus supplement IV given. May 02: Serum sodium up to 144. Stable from renal standpoint of view. Continue per consultants. May 01: Serum serum sodium 136. Will stop D5W IV fluid. 1 dose of Lasix IV. Potassium supplement. Continue to monitor electrolytes. Continue per consultants. April 30: Serum sodium 146. Low phosphorus replaced. Continue pulmonary support and per consultants. April 29: Serum sodium normalized. Electrolytes within normal limit. Remains on nonrebreather mask. Continue per consultants. April 28: Continue D5W. Abnormal electrolytes addressed. Continue per consultants. Remains full code. Remains on nonrebreather mask. April 27: Continue D5W. Continue pulmonary support. Monitor renal p arameters and electrolytes. Continue per consultants. Patient full code. Remains on nonrebreathing mask. Contreras catheter IV D5W Monitor electrolytes and renal parameters Antibiotics Avoid nephrotoxic's 2D echocardiogram Per orders Subjective ROS Limited/Unobtainable: Yes Objective Objective Last 24 Hour Vital Signs Date Time Temp Pulse Resp B/P (MAP) Pulse Ox O2 Delivery O2 Flow Rate FiO2 05/08/20 08:45 70 142/68 05/08/20 07:22 98 Nasal Cannula 2.0 28 05/08/20 04:05 69 05/08/20 04:00 Nasal Cannula 2.0 05/08/20 04:00 3.0 05/08/20 04:00 97.2 68 17 115/60 (78) 99 05/08/20 00:00 99.0 66 20 111/66 (81) 99 05/08/20 00:00 Nasal Cannula 2.0 05/07/20 23:37 69 05/07/20 21:28 98.2 05/07/20 20:00 101.8 63 20 125/75 (92) 99 05/07/20 20:00 Nasal Cannula 2.0 05/07/20 20:00 3.0 05/07/20 20:00 66 05/07/20 19:26 98 Nasal Cannula 2.0 28 05/07/20 18:35 78 131/74 05/07/20 16:00 Nasal Cannula 2.0 05/07/20 16:00 76 05/07/20 16:00 2.0 05/07/20 16:00 99.5 78 22 119/65 (83) 99 05/07/20 12:00 2.0 05/07/20 12:00 Nasal Cannula 2.0 05/07/20 12:00 100.2 80 16 113/49 (70) 100 05/07/20 12:00 67 Intake and Output 05/07/20 05/08/20 19:00 07:00 Intake Total 705 ml 650 ml Output Total 850 ml 850 ml Balance -145 ml -200 ml Free Water 50 ml IV Total 55 ml Tube Feeding 600 ml 600 ml Other 50 ml Output Urine Total 850 ml 850 ml # Bowel Movements 2 Laboratory Tests 05/07/20 12:00: Urine Color Yellow, Urine Appearance Clear, Urine pH 8, Urine Specific [place] 1.010, Urine Protein 2+H, Urine Glucose (UA) Negative, Urine Ketones Negative, Urine Blood 1+H, Urine Nitrite Negative, Urine Bilirubin Negative, Urine Urobilinogen 4H, Urine Leukocyte Esterase 1+H, Urine RBC 2-4H, Urine WBC 5-10H, Urine Squamous Epithelial Cells Occasional, Urine Bacteria Few, Urine Yeast FewH 05/07/20 12:05: POC Whole Blood Glucose 106 05/07/20 18:12: POC Whole Blood Glucose 106 05/07/20 20:55: POC Whole Blood Glucose 103 05/08/20 03:15: White Blood Count 5.4, Red Blood Count 3.08L, Hemoglobin 9.3L, Hematocrit 29.5L, Mean Corpuscular Volume 96, Mean Corpuscular Hemoglobin 30.3, Mean Corpuscular Hemoglobin Concent 31.6L, Red Cell Distribution Width 14.0, Platelet Count 247, Mean Platelet Volume 6.2L, Neutrophils (%) (Auto) 59.4, Lymphocytes (%) (Auto) 24.3, Monocytes (%) (Auto) 9.1, Eosinophils (%) (Auto) 6.1H, Basophils (%) (Auto) 1.1, Sodium Level 140, Potassium Level 4.5, Chloride Level 109H, Carbon Dioxide Level 29, Anion Gap 2L, Blood Urea Nitrogen 24H, Creatinine 0.6, Estimat Glomerular Filtration Rate > 60, Glucose Level 111H, Calcium Level 7.9L 05/08/20 06:17: POC Whole Blood Glucose 116H Height (Feet): 6 Height (Inches): 0.00 Weight (Pounds): 148 General Appearance: no apparent distress, lethargic EENT: other - Nonnasal cannula Cardiovascular: normal rate Respiratory/Chest: decreased breath sounds Abdomen: distended Maximino Castillo MD May 08, 2020 10:23
--- NOTE | 2020-05-08 11:35 | Pulmonology Progress Note ---
Subjective ROS Limited/Unobtainable: Yes Constitutional: Reports: no symptoms HEENT: Repors: no symptoms Allergies: Coded Allergies: No Known Allergies (Unverified , 06/11/17) All Systems: reviewed and negative except above Subjective on O2 via NC, pulse ox stable, no signs of resp distress no fevers since 05/07 ; no leukocytosis PEG planned for Sunday Objective Last 24 Hour Vital Signs Date Time Temp Pulse Resp B/P (MAP) Pulse Ox O2 Delivery O2 Flow Rate FiO2 05/08/20 08:45 70 142/68 05/08/20 08:00 Nasal Cannula 2.0 05/08/20 08:00 98.0 70 18 142/68 (92) 98 05/08/20 08:00 2.0 05/08/20 07:59 74 05/08/20 07:22 98 Nasal Cannula 2.0 28 05/08/20 04:05 69 05/08/20 04:00 Nasal Cannula 2.0 05/08/20 04:00 3.0 05/08/20 04:00 97.2 68 17 115/60 (78) 99 05/08/20 00:00 99.0 66 20 111/66 (81) 99 05/08/20 00:00 Nasal Cannula 2.0 05/07/20 23:37 69 05/07/20 21:28 98.2 05/07/20 20:00 101.8 63 20 125/75 (92) 99 05/07/20 20:00 Nasal Cannula 2.0 05/07/20 20:00 3.0 05/07/20 20:00 66 05/07/20 19:26 98 Nasal Cannula 2.0 28 05/07/20 18:35 78 131/74 05/07/20 16:00 Nasal Cannula 2.0 05/07/20 16:00 76 05/07/20 16:00 2.0 05/07/20 16:00 99.5 78 22 119/65 (83) 99 05/07/20 12:00 2.0 05/07/20 12:00 Nasal Cannula 2.0 05/07/20 12:00 100.2 80 16 113/49 (70) 100 05/07/20 12:00 67 Intake and Output 05/07/20 05/08/20 19:00 07:00 Intake Total 705 ml 650 ml Output Total 850 ml 850 ml Balance -145 ml -200 ml Free Water 50 ml IV Total 55 ml Tube Feeding 600 ml 600 ml Other 50 ml Output Urine Total 850 ml 850 ml # Bowel Movements 2 Objective General Appearance: no apparent distress, chronically ill looking cachectic bedridden male Lines, tubes and drains: PICC intact HEENT: normocephalic, atraumatic, anicteric, O2 via NC , NGT with TF Neck: non-tender, supple Respiratory/Chest: rhonchi - bilaterally - scattered Cardiovascular/Chest: normal rate - SR Abdomen: normal bowel sounds, non tender, soft : Contreras Skin Exam: warm/dry Neurologic: abnormal gait - bedridden , left hemiparesis , poorly but responds to verbal commands Musculoskeletal: atrophy BLE Microbiology Date/Time Source Procedure Growth Status 05/07/20 12:00 Urine,Clean Catch Urine Culture - Preliminary NO GROWTH Resulted Laboratory Tests 05/07/20 12:00: Urine Color Yellow, Urine Appearance Clear, Urine pH 8, Urine Specific [place] 1.010, Urine Protein 2+H, Urine Glucose (UA) Negative, Urine Ketones Negative, Urine Blood 1+H, Urine Nitrite Negative, Urine Bilirubin Negative, Urine Urobilinogen 4H, Urine Leukocyte Esterase 1+H, Urine RBC 2-4H, Urine WBC 5-10H, Urine Squamous Epithelial Cells Occasional, Urine Bacteria Few, Urine Yeast FewH 05/07/20 12:05: POC Whole Blood Glucose 106 05/07/20 18:12: POC Whole Blood Glucose 106 05/07/20 20:55: POC Whole Blood Glucose 103 05/08/20 03:15: White Blood Count 5.4, Red Blood Count 3.08L, Hemoglobin 9.3L, Hematocrit 29.5L, Mean Corpuscular Volume 96, Mean Corpuscular Hemoglobin 30.3, Mean Corpuscular Hemoglobin Concent 31.6L, Red Cell Distribution Width 14.0, Platelet Count 247, Mean Platelet Volume 6.2L, Neutrophils (%) (Auto) 59.4, Lymphocytes (%) (Auto) 24.3, Monocytes (%) (Auto) 9.1, Eosinophils (%) (Auto) 6.1H, Basophils (%) (Auto) 1.1, Sodium Level 140, Potassium Level 4.5, Chloride Level 109H, Carbon Dioxide Level 29, Anion Gap 2L, Blood Urea Nitrogen 24H, Creatinine 0.6, Estimat Glomerular Filtration Rate > 60, Glucose Level 111H, Calcium Level 7.9L 05/08/20 06:17: POC Whole Blood Glucose 116H Current Medications Medications (Trade) Dose Ordered Sig/Lopez Route PRN Reason Start Time Stop Time Status Last Admin Dose Admin Acetaminophen (Tylenol) 650 mg Q4H PRN NG fever 05/07/20 20:45 06/06/20 20:44 05/07/20 20:58 Apixaban (Eliquis) 5 mg BID NGT 05/08/20 09:00 08/06/20 08:59 05/08/20 08:42 Ceftriaxone Sodium 1 gm/ Dextrose 55 ml @ 110 mls/hr Q24H IVPB 05/07/20 09:00 05/14/20 08:59 05/08/20 08:44 Chlorhexidine Gluconate (Arpita-Hex 2%) 1 applic DAILY@2000 TOPIC 04/29/20 20:00 07/28/20 19:59 05/07/20 20:57 Clonidine HCl (Catapres Tab) 0.1 mg Q8H PRN GT For High Blood Pressure 05/05/20 16:45 08/03/20 16:44 Dextrose (Dextrose 50%) 25 ml Q30M PRN IV Hypoglycemia 04/25/20 00:00 07/24/20 00:00 Dextrose (Dextrose 50%) 50 ml Q30M PRN IV Hypoglycemia 04/25/20 00:00 07/24/20 00:00 Folic Acid (Folate) 1 mg DAILY NG 05/08/20 09:00 06/07/20 08:59 05/08/20 08:44 Insulin Aspart (NovoLOG) EVERY 6 HOURS SUBQ 05/08/20 06:00 07/24/20 18:00 Lamotrigine (LaMICtal) 25 mg DAILY NG 05/08/20 09:00 06/07/20 08:59 05/08/20 08:42 Memantine (Namenda) 5 mg TWICE A DAY NG 05/08/20 09:00 06/07/20 08:59 05/08/20 08:43 Metoprolol Tartrate (Lopressor) 50 mg BID GT 05/01/20 20:00 07/30/20 19:59 05/08/20 08:45 Olanzapine (ZyPREXA) 5 mg DAILY NG 05/08/20 09:00 06/22/20 08:59 05/08/20 08:44 Ondansetron HCl (Zofran) 4 mg Q6H PRN IVP Nausea & Vomiting 04/25/20 00:00 05/25/20 00:00 Polyethylene Glycol (Miralax) 17 gm DAILYPRN PRN NG Constipation 05/07/20 20:45 06/06/20 20:44 Quetiapine Fumarate (SEROqueL) 50 mg Q12HR NG 05/07/20 21:00 06/21/20 20:59 05/08/20 08:43 Assessment/Plan Assessment/Plan ASSESSMENT Acute hypoxemic respiratory failure, requiring NIPPV/BIPAP-resolved , probably due to acute DVt and PE Bilateral DVT PE Possible sepsis Probably aspiration pneumonitis Dehydration KORY Dysphagia Hyper Na COPD Anemia Protein calorie malnutrition Hx of CVA with left hemiparesis DM PLAN OF CARE PRISCILA now on O2 via NC, titrate O2 to keep sat > 92, pulm toilet prn fup with CXR acute resp failure was most likely dye to acute BL DVT and acute BL PE CTA and venous Duplex noted now on a/c with Eliquis empiric abx per ID for possible asp pneumonitis given fevers strict aspiration precautions NGT feeding PEF planned for Sunday monitor renal paramerts, lytes, correct lytes as needed nephro follwos BUN trended down monitor HH with goal; to keep Hgb > 7 BS management with SSI protein supplements supportive care case discussed and evaluated by supervising physician Deysi Sahu [employer] May 08, 2020 11:35
[2020-05-08 12:00] VITALS: BP 120/56
--- NOTE | 2020-05-08 15:13 | NUR ---
NURSE NOTES: Gave hand off report to Divine ARROYO. Pt. remain stable.
--- NOTE | 2020-05-08 15:30 | NUR ---
NURSE NOTES: Transferred patient to room 214-2.
[2020-05-08 16:00] VITALS: BP 141/66
--- NOTE | 2020-05-08 16:00 | NUR ---
NURSE NOTES: Received report from CRUZ Koenig. Pt is A/O x 1 but confused and mumbles but verbally responsive. Pt has no SOB or acute distress. No facial grimacing for pain noted either. Pt is on NC 2L and saturating at 98%. HOB elevated at all times with NGT placed on L nares running Glucerna 1.2 at 50cc/hr which is intact and flushed. Pt has a cunningham catheter patent, intact, and draining yellow urine. Pt also has a ELI PICC line dual lumen which is intact and patent also has NS running at TKO and a LAC 20 g IV saline locked which is flushed and patent. Pt has multiple wounds which pictures were taken upon transfer.Bed is on low position with 2 side rails in up position, locked, with call light within reach. Will continue plan of care.
--- NOTE | 2020-05-08 19:15 | NUR ---
NURSE NOTES: Pt received from from CRUZ Haskins. Pt is resting comfortably in bed and shows no signs of pain. Pt is bedfast and requires turning every 2 hours. Pt is A/Ox0 and incontinent x2. Pt has FC 16fr patent and draining well to gravity. Pt is breathing unlabored on 2LPM NC with Bipar12/5 PRN. Pt has NGT Lnare running Glucerna 1.2 ml/hr to flush with meds. Pt has PICC line on Rarm and LAC 20G SL both patent with skin dry and intact. Pt is on cardiac monitoring SR sagar Hensley and asymptomatic; aware. Bed is locked in lowest position with call light within reach. Will continue to monitor.
--- NOTE | 2020-05-08 19:17 | General Progress Note ---
Subjective Allergies: Coded Allergies: No Known Allergies (Unverified , 06/11/17) Subjective above noted obtunded tolerating NGT feeds Objective Last 24 Hour Vital Signs Date Time Temp Pulse Resp B/P (MAP) Pulse Ox O2 Delivery O2 Flow Rate FiO2 05/08/20 17:28 75 141/66 05/08/20 16:00 2.0 05/08/20 16:00 2.0 05/08/20 16:00 97.9 90 22 141/66 (91) 99 05/08/20 16:00 Nasal Cannula 2.0 05/08/20 16:00 75 05/08/20 12:00 2.0 05/08/20 12:00 97.7 63 19 120/56 (77) 97 05/08/20 12:00 Nasal Cannula 2.0 05/08/20 11:46 65 05/08/20 08:45 70 142/68 05/08/20 08:00 Nasal Cannula 2.0 05/08/20 08:00 98.0 70 18 142/68 (92) 98 05/08/20 08:00 2.0 05/08/20 07:59 74 05/08/20 07:22 98 Nasal Cannula 2.0 28 05/08/20 04:05 69 05/08/20 04:00 Nasal Cannula 2.0 05/08/20 04:00 3.0 05/08/20 04:00 97.2 68 17 115/60 (78) 99 05/08/20 00:00 99.0 66 20 111/66 (81) 99 05/08/20 00:00 Nasal Cannula 2.0 05/07/20 23:37 69 05/07/20 21:28 98.2 05/07/20 20:00 101.8 63 20 125/75 (92) 99 05/07/20 20:00 Nasal Cannula 2.0 05/07/20 20:00 3.0 05/07/20 20:00 66 05/07/20 19:26 98 Nasal Cannula 2.0 28 Intake and Output 05/07/20 05/08/20 19:00 07:00 Intake Total 705 ml 650 ml Output Total 850 ml 850 ml Balance -145 ml -200 ml Free Water 50 ml IV Total 55 ml Tube Feeding 600 ml 600 ml Other 50 ml Output Urine Total 850 ml 850 ml # Bowel Movements 2 Laboratory Tests 05/07/20 20:55: POC Whole Blood Glucose 103 05/08/20 03:15: White Blood Count 5.4, Red Blood Count 3.08L, Hemoglobin 9.3L, Hematocrit 29.5L, Mean Corpuscular Volume 96, Mean Corpuscular Hemoglobin 30.3, Mean Corpuscular Hemoglobin Concent 31.6L, Red Cell Distribution Width 14.0, Platelet Count 247, Mean Platelet Volume 6.2L, Neutrophils (%) (Auto) 59.4, Lymphocytes (%) (Auto) 24.3, Monocytes (%) (Auto) 9.1, Eosinophils (%) (Auto) 6.1H, Basophils (%) (Auto) 1.1, Sodium Level 140, Potassium Level 4.5, Chloride Level 109H, Carbon Dioxide Level 29, Anion Gap 2L, Blood Urea Nitrogen 24H, Creatinine 0.6, Estimat Glomerular Filtration Rate > 60, Glucose Level 111H, Calcium Level 7.9L 05/08/20 06:17: POC Whole Blood Glucose 116H 05/08/20 12:02: POC Whole Blood Glucose 118H 05/08/20 17:26: POC Whole Blood Glucose 111H Height (Feet): 6 Height (Inches): 0.00 Weight (Pounds): 148 Objective NCAT supple Coarse ronchi RR abd soft flat no edema OBS Assessment/Plan Status: unchanged Assessment/Plan: Assessment/Plan 1. COPD. 2. Diabetes. 3. Schizophrenia. 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 5. Dementia. 6. Anemia 7. Dysphagia 8. Folate deficiency Recommendations [facility] folate neg stool ob>>> neg plan PEG for sunday 2 consent given no family available will Ty Pena MD May 08, 2020 19:17
--- NOTE | 2020-05-08 19:42 | Cardiology Progress Note ---
Assessment/Plan Assessment/Plan 1. Wandering pacemaker or multifocal atrial rhythm, now in sinus rhythm with APC bigeminy, continue metoprolol. 2. Dyspnea most likely due to bilateral pulmonary emboli, on Eliquis, 2D echo reveals normal LV function. 3. History of CVA with left hemiparesis. 4. Hypoxic respiratory failure, on NC oxygen now. 5. Diabetes Mellitus, continue ASA and statins. 6. Dysphagia. Subjective Subjective Sinus rhythm at rate of 75. On NC oxygen Objective Last 24 Hour Vital Signs Date Time Temp Pulse Resp B/P (MAP) Pulse Ox O2 Delivery O2 Flow Rate FiO2 05/08/20 17:28 75 141/66 05/08/20 16:00 2.0 05/08/20 16:00 2.0 05/08/20 16:00 97.9 90 22 141/66 (91) 99 05/08/20 16:00 Nasal Cannula 2.0 05/08/20 16:00 75 05/08/20 12:00 2.0 05/08/20 12:00 97.7 63 19 120/56 (77) 97 05/08/20 12:00 Nasal Cannula 2.0 05/08/20 11:46 65 05/08/20 08:45 70 142/68 05/08/20 08:00 Nasal Cannula 2.0 05/08/20 08:00 98.0 70 18 142/68 (92) 98 05/08/20 08:00 2.0 05/08/20 07:59 74 05/08/20 07:22 98 Nasal Cannula 2.0 28 05/08/20 04:05 69 05/08/20 04:00 Nasal Cannula 2.0 05/08/20 04:00 3.0 05/08/20 04:00 97.2 68 17 115/60 (78) 99 05/08/20 00:00 99.0 66 20 111/66 (81) 99 05/08/20 00:00 Nasal Cannula 2.0 05/07/20 23:37 69 05/07/20 21:28 98.2 05/07/20 20:00 101.8 63 20 125/75 (92) 99 05/07/20 20:00 Nasal Cannula 2.0 05/07/20 20:00 3.0 05/07/20 20:00 66 Intake and Output 05/07/20 05/08/20 19:00 07:00 Intake Total 705 ml 650 ml Output Total 850 ml 850 ml Balance -145 ml -200 ml Free Water 50 ml IV Total 55 ml Tube Feeding 600 ml 600 ml Other 50 ml Output Urine Total 850 ml 850 ml # Bowel Movements 2 2D Echo: LVEF 55%, limited views Laboratory Tests Test 05/07/20 20:55 05/08/20 03:15 05/08/20 06:17 05/08/20 12:02 POC Whole Blood Glucose 103 MG/DL (74-106) 116 MG/DL (74-106) H 118 MG/DL (74-106) H White Blood Count 5.4 K/UL (4.8-10.8) Red Blood Count 3.08 M/UL (4.70-6.10) L Hemoglobin 9.3 G/DL (14.2-18.0) L Hematocrit 29.5 % (42.0-52.0) L Mean Corpuscular Volume 96 FL (80-99) Mean Corpuscular Hemoglobin 30.3 PG (27.0-31.0) Mean Corpuscular Hemoglobin Concent 31.6 G/DL (32.0-36.0) L Red Cell Distribution Width 14.0 % (11.6-14.8) Platelet Count 247 K/UL (150-450) Mean Platelet Volume 6.2 FL (6.5-10.1) L Neutrophils (%) (Auto) 59.4 % (45.0-75.0) Lymphocytes (%) (Auto) 24.3 % (20.0-45.0) Monocytes (%) (Auto) 9.1 % (1.0-10.0) Eosinophils (%) (Auto) 6.1 % (0.0-3.0) H Basophils (%) (Auto) 1.1 % (0.0-2.0) Sodium Level 140 MMOL/L (136-145) Potassium Level 4.5 MMOL/L (3.5-5.1) Chloride Level 109 MMOL/L (98-107) H Carbon Dioxide Level 29 MMOL/L (21-32) Anion Gap 2 mmol/L (5-15) L Blood Urea Nitrogen 24 mg/dL (7-18) H Creatinine 0.6 MG/DL (0.55-1.30) Estimat Glomerular Filtration Rate > 60 mL/min (>60) Glucose Level 111 MG/DL (74-106) H Calcium Level 7.9 MG/DL (8.5-10.1) L Test 05/08/20 17:26 POC Whole Blood Glucose 111 MG/DL (74-106) H Microbiology Date/Time Source Procedure Growth Status 05/07/20 12:00 Urine,Clean Catch Urine Culture - Preliminary NO GROWTH Resulted Objective HEENT: normocephalic, atraumatic, bilateral eye PERRL, bilateral eye EOMI, on NC. Neck: JVP cannot be assessed, no carotid bruit. Respiratory: Bilateral rhonchi Cardiovascular: normal S1S2, irregular rhythm, no murmurs, gallops or rubs Gastrointestinal: non tender, soft, non-distended, no guarding Extremities: No edema, clubbing or cyanosis. Neurologic: Left hemiparesis, responds to commands, localizes to pain Gama Whitney MD May 08, 2020 19:42
[2020-05-08 20:00] VITALS: BP 129/48
[2020-05-08] MEDS: Dyna-Hex 2% Top Sol 2oz TOPIC SCH (21:37)
[2020-05-09] VITALS: BP 108/51
[2020-05-09 04:00] VITALS: BP 115/64
[2020-05-09] MEDS: NovoLOG Insulin Flexpen SUBQ SCH ×4 (05:55→18:00)
--- NOTE | 2020-05-09 07:30 | NUR ---
NURSE NOTES: Received pt from CRUZ Tracey, pt is awake and confused, pt has NC 2LIT. pt has PICC R arm SL and iv access LAC 20G SL. Pt hs ng tube in place is working well. pt has Contreras cath in place is working well. all needs attended, bed is locked and is in the lowest position, call light within easy reach. will continue to monitor.
[2020-05-09 07:43] LABS: BASOPHILS % (AUTO) 1.7 % (0.0-2.0); EOSINOPHILS % (AUTO) 5.3 % (0.0-3.0); HEMATOCRIT 33.5 % (42.0-52.0); HEMOGLOBIN 10.4 G/DL (14.2-18.0); LYMPHOCYTES % (AUTO) 19.6 % (20.0-45.0); MEAN CORPUSCULAR VOLUME 97 FL (80-99); MONOCYTES % (AUTO) 10.8 % (1.0-10.0); NEUTROPHILS % (AUTO) 62.6 % (45.0-75.0); PLATELET COUNT 251 K/UL (150-450); RED BLOOD COUNT 3.45 M/UL (4.70-6.10); RED CELL DISTRIBUTION WIDTH 13.3 % (11.6-14.8); WHITE BLOOD COUNT 5.8 K/UL (4.8-10.8)
[2020-05-09 08:00] VITALS: BP 115/59
--- NOTE | 2020-05-09 08:00 | NUR ---
NURSE HAND-OFF REPORT: Important Events on Shift: Transfer from SDU. NGT on Left nare. Plan ofr PEG on 05/10 Patient Status: Stable Diet: Glucerna 1/2 @ 50cc/hr Pending Orders: Pending Results/Labs: Pending MD notification: Latest Vital Signs: Temperature 97.9 , Pulse 75 , B/P 141 /66 , Respiratory Rate 22 , O2 SAT 99 , Nasal Cannula, O2 Flow Rate 2.0 . Vital Sign Comment: EKG Rhythm: Sinus Rhythm Rhythm change?: N Notified?: N -Dr. Devonte SAAVEDRA Response: No New Orders Received Latest Andersen Fall Score: 70 Fall Risk: High Risk Safety Measures: Call light Within Reach, Bed Alarm Zone 2, Side Rails Side Rails x3, Bed position Low and Locked. Fall Precautions: Yellow Socks Yellow Gown Door Sign Patient Fall Education Report given to CRUZ Gramajo.
[2020-05-09 08:04] LABS: ANION GAP 3 mmol/L (5-15); BLOOD UREA NITROGEN 22 mg/dL (7-18); CARBON DIOXIDE 30 MMOL/L (21-32); CHLORIDE 108 MMOL/L (98-107); CREATININE 0.6 MG/DL (0.55-1.30); POTASSIUM 4.7 MMOL/L (3.5-5.1); SODIUM 141 MMOL/L (136-145)
--- NOTE | 2020-05-09 08:38 | Psychiatry Consultation ---
Psychiatry Consultation Psychiatry Consultation Chief Complaint: Dyspnea/Respdistress History of Present Illness: 80yo male who is confused and disorganized with a decline in cognition below his baseling so the goal is to prevent any further decline in his cognition. Allergies: Coded Allergies: No Known Allergies (Unverified , 06/11/17) Medication History Scheduled Amino Acids/Protein Hydrolys (Pro-Stat Liquid), 30 ML ORAL DAILY, (Reported) Aspirin (Aspirin EC), 81 MG ORAL DAILY, (Reported) Docusate Sodium* (Colace*), 100 MG ORAL DAILY, (Reported) Folic Acid* (Folic Acid*), 1 MG ORAL DAILY, (Reported) Heparin Sod (Porcine) (Heparin Sodium*), 5,000 UNITS SUBQ DAILY, (Reported) Lamotrigine* (Lamictal*), 25 MG ORAL DAILY, (Reported) Lisinopril (Lisinopril*), 20 MG ORAL BID, (Reported) Memantine Hcl* (Namenda*), 5 MG ORAL TWICE A DAY, (Reported) Multivitamin With Minerals (Multivitamins With Minerals*), 1 TAB ORAL DAILY, (Reported) Olanzapine* (Zyprexa*), 5 MG ORAL DAILY, (Reported) Sennosides (Senna), 2 TAB PO BEDTIME, (Reported) Scheduled PRN Acetaminophen* (Acetaminophen 325MG Tablet*), 650 MG ORAL Q4H PRN for Fever/Headache/Mild Pain, (Reported) Bisacodyl (Dulcolax), 10 MG RC for Constipation, (Reported) Hydralazine Hcl* (Hydralazine Hcl*), 10 MG ORAL Q4HR PRN for SBP > 160 , (Reported) Ipratropium/Albuterol Sulfate (DuoNeb 0.5-3(2.5)mg/3ml), 1 UNIT HHN EVERY 6 HOURS PRN for Shortness of Breath, (Reported) Magnesium Hydroxide* (Milk Of Magnesia*), 30 ML ORAL EVERY 6 HOURS PRN for Constipation, (Reported) Na Phos,M-B/Na Phos,Di-Ba* (Fleet Enema*), 133 ML RECTAL DAILY PRN for Constipation, (Reported) Nitroglycerin 0.4MG table* (Nitroglycerin*), 0.4 MG SL .Q5MIN X 3 DOSES PRN for CHEST PAIN, (Reported) Miscellaneous Medications Insulin Lispro (Humalog), 0 SUBQ, (Reported) Objective Data Height (Feet): 6 Height (Inches): 0.00 Weight (Pounds): 148 Appearance: disheveled Behavior Mannerisms: poor eye contact Affect: constricted Mood: depressed Speech: dysarthric Thought Process: disorganized Thought Content: paranoia Perceptual Disturbances: auditory Suicidal Ideation: no plan Assessment/Plan Assessment/Plan: Continue the patient on Lamictal, Zyprexa, Ativan and Namenda. 20min of insight oriented psychotherapy to help him recognize his psychical and cogintive deficits so that he has less depression and better impulse control. Diagnosis [place] I: Schizoaffective Bipolar type Dakota Monroe MD May 09, 2020 08:38
--- NOTE | 2020-05-09 09:36 | Pulmonology Progress Note ---
Subjective ROS Limited/Unobtainable: Yes Constitutional: Reports: no symptoms HEENT: Repors: no symptoms Allergies: Coded Allergies: No Known Allergies (Unverified , 06/11/17) All Systems: reviewed and negative except above Subjective on O2 via NC, pulse ox stable, no signs of resp distress no fevers since 05/07 ; no leukocytosis PEG planned for Sunday Objective Last 24 Hour Vital Signs Date Time Temp Pulse Resp B/P (MAP) Pulse Ox O2 Delivery O2 Flow Rate FiO2 05/09/20 08:00 98.2 71 20 115/59 (77) 99 05/09/20 04:00 68 05/09/20 04:00 98.1 69 20 115/64 (81) 99 05/09/20 04:00 2.0 05/09/20 00:00 99.3 61 20 108/51 (70) 100 05/09/20 00:00 72 05/09/20 00:00 2.0 05/08/20 21:00 Nasal Cannula 2.0 05/08/20 20:11 98 Nasal Cannula 2.0 28 05/08/20 20:00 98.4 66 20 129/48 (75) 98 05/08/20 20:00 67 05/08/20 17:28 75 141/66 05/08/20 16:00 2.0 05/08/20 16:00 2.0 05/08/20 16:00 97.9 90 22 141/66 (91) 99 05/08/20 16:00 Nasal Cannula 2.0 05/08/20 16:00 75 05/08/20 12:00 2.0 05/08/20 12:00 97.7 63 19 120/56 (77) 97 05/08/20 12:00 Nasal Cannula 2.0 05/08/20 11:46 65 Intake and Output 05/08/20 05/09/20 19:00 07:00 Intake Total 650 ml Output Total 650 ml 700 ml Balance 0 ml -700 ml Free Water 150 ml Tube Feeding 500 ml Output Urine Total 650 ml 700 ml # Bowel Movements 3 1 Objective General Appearance: no apparent distress, chronically ill looking cachectic bedridden male Lines, tubes and drains: PICC intact HEENT: normocephalic, atraumatic, anicteric, O2 via NC , NGT with TF Neck: non-tender, supple Respiratory/Chest: rhonchi - bilaterally - scattered Cardiovascular/Chest: normal rate - SR Abdomen: normal bowel sounds, non tender, soft : Contreras Skin Exam: warm/dry Neurologic: abnormal gait - bedridden , left hemiparesis , poorly but responds to verbal commands Musculoskeletal: atrophy BLE Microbiology Date/Time Source Procedure Growth Status 05/07/20 12:00 Urine,Clean Catch Urine Culture - Final NO GROWTH AFTER 48 HOURS Complete Laboratory Tests 05/08/20 12:02: POC Whole Blood Glucose 118H 05/08/20 17:26: POC Whole Blood Glucose 111H 05/09/20 07:20: White Blood Count 5.8, Red Blood Count 3.45L, Hemoglobin 10.4L, Hematocrit 33.5L , Mean Corpuscular Volume 97, Mean Corpuscular Hemoglobin 30.0, Mean Corpuscular Hemoglobin Concent 30.9L, Red Cell Distribution Width 13.3, Platelet Count 251, Mean Platelet Volume 6.4L, Neutrophils (%) (Auto) 62.6, Lymphocytes (%) (Auto) 19.6L, Monocytes (%) (Auto) 10.8H, Eosinophils (%) (Auto) 5.3H, Basophils (%) (Auto) 1.7, Sodium Level 141, Potassium Level 4.7, Chloride Level 108H, Carbon Dioxide Level 30, Anion Gap 3L, Blood Urea Nitrogen 22H, Creatinine 0.6, Estimat Glomerular Filtration Rate > 60, Glucose Level 111H, Calcium Level 8.0L Current Medications Medications (Trade) Dose Ordered Sig/Lopez Route PRN Reason Start Time Stop Time Status Last Admin Dose Admin Acetaminophen (Tylenol) 650 mg Q4H PRN NG fever 05/07/20 20:45 06/06/20 20:44 05/07/20 20:58 Apixaban (Eliquis) 5 mg BID NGT 05/08/20 09:00 08/06/20 08:59 05/08/20 17:29 Ceftriaxone Sodium 1 gm/ Dextrose 55 ml @ 110 mls/hr Q24H IVPB 05/07/20 09:00 05/14/20 08:59 05/08/20 08:44 Chlorhexidine Gluconate (Arpita-Hex 2%) 1 applic DAILY@2000 TOPIC 04/29/20 20:00 07/28/20 19:59 05/08/20 21:37 Clonidine HCl (Catapres Tab) 0.1 mg Q8H PRN GT For High Blood Pressure 05/05/20 16:45 08/03/20 16:44 Dextrose (Dextrose 50%) 25 ml Q30M PRN IV Hypoglycemia 04/25/20 00:00 07/24/20 00:00 Dextrose (Dextrose 50%) 50 ml Q30M PRN IV Hypoglycemia 04/25/20 00:00 07/24/20 00:00 Folic Acid (Folate) 1 mg DAILY NG 05/08/20 09:00 06/07/20 08:59 05/08/20 08:44 Insulin Aspart (NovoLOG) EVERY 6 HOURS SUBQ 05/08/20 06:00 07/24/20 18:00 Lamotrigine (LaMICtal) 25 mg DAILY NG 05/08/20 09:00 06/07/20 08:59 05/08/20 08:42 Memantine (Namenda) 5 mg TWICE A DAY NG 05/08/20 09:00 06/07/20 08:59 05/08/20 17:28 Metoprolol Tartrate (Lopressor) 50 mg BID GT 05/01/20 20:00 07/30/20 19:59 05/08/20 17:28 Olanzapine (ZyPREXA) 5 mg DAILY NG 05/08/20 09:00 06/22/20 08:59 05/08/20 08:44 Ondansetron HCl (Zofran) 4 mg Q6H PRN IVP Nausea & Vomiting 04/25/20 00:00 05/25/20 00:00 Polyethylene Glycol (Miralax) 17 gm DAILYPRN PRN NG Constipation 05/07/20 20:45 06/06/20 20:44 Quetiapine Fumarate (SEROqueL) 50 mg Q12HR NG 05/07/20 21:00 06/21/20 20:59 05/08/20 21:38 Assessment/Plan Assessment/Plan ASSESSMENT Acute hypoxemic respiratory failure, requiring NIPPV/BIPAP-resolved , probably due to acute DVt and PE Bilateral DVT Bilateral PE Possible sepsis Probably aspiration pneumonitis Dehydration KORY Dysphagia Hyper Na COPD Anemia Protein calorie malnutrition Hx of CVA with left hemiparesis DM PLAN OF CARE tele now on O2 via NC, titrate O2 to keep sat > 92, pulm toilet prn fup with CXR in am acute resp failure was most likely dye to acute BL DVT and acute BL PE CTA and venous Duplex noted now on a/c with Eliquis empiric abx per ID for possible asp pneumonitis given fevers ( no fevers since 05/07) strict aspiration precautions NGT feeding PEF planned for Sunday ( will need to hold Eliquis ) monitor renal paramerts, lytes, correct lytes as needed nephro follwos BUN trended down monitor HH with goal; to keep Hgb > 7 BS management with SSI protein supplements supportive care case discussed and evaluated by supervising physician Deysi Sahu NP May 09, 2020 09:36
[2020-05-09] MEDS: Metoprolol Tartrate 50mg tab GT SCH ×2 (09:38→17:53)
[2020-05-09] MEDS: Memantine 10mg tab NG SCH ×2 (09:38→17:53)
[2020-05-09] MEDS: Eliquis 5mg tablet NGT SCH ×2 (09:39→17:53)
[2020-05-09] MEDS: cefTRIAXone 1 GM in D5W 55 ML IVPB SCH (09:39)
--- NOTE | 2020-05-09 10:03 | Hematology/Onc Progress Note ---
Assessment/Plan Assessment/Plan # Bilateral pulmonary emboli on cta as well as Dvt on duplex --> Equivocal evidence of right heart strain; RV /LV ratio around 0.5 but is somewhat difficult to assess due to ventricular muscle hypertrophy --> duplex Positive for bilateral lower extremity deep venous thrombosis, as described --> continue on heparin gtt until stabilizes, then consider noac --> 04/29 started on eliquis # Anemia of chronic disease, anemia panel is noted --> r/o bleed, is on anticoag --> hgb 10-->8.7-->8.5-->9.4-->9.7-->>9.5-->9.4->10.4 -> no hemolysis is noted # Leukocytosis due to sepsis/uti --> ABX Cefepime/vanc-->off --> smear is reviewed --> wbc 7-->4 # COPD. --> breathing rx as needed # Diabetes mellitus --> iss, accuchecks qac and qhs # Schizophrenia. --> per psych recs # History of CVA with left hemiparesis. # Dementia. # Dysphagia -> for peg 05/10 # Folate def # Dvt ppx eliquis Appreciate consultation and jorge l Rn Subjective Constitutional: Denies: no symptoms, chills, fever, malaise, weakness, other HEENT: Denies: no symptoms, eye pain, blurred vision, tearing, double vision, ear pain, ear discharge, nose pain, nose congestion, throat pain, throat swel ling, mouth pain, mouth swelling, other Cardiovascular: Denies: no symptoms, chest pain, edema, irregular heart rate, lightheadedness, palpitations, syncope, other Gastrointestinal/Abdominal: Denies: no symptoms, abdomen distended, abdominal pain, black stools, tarry stools, blood in stool, constipated, diarrhea, difficulty swallowing, nausea, poor appetite, poor fluid intake, rectal bleeding, vomiting, other Genitourinary: Denies: no symptoms, burning, discharge, frequency, flank pain, hematuria, incontinence, pain, urgency, other Neurologic/Psychiatric: Denies: no symptoms, anxiety, depressed, emotional problems, headache, numbness, paresthesia, pre-existing deficit, seizure, tingling, tremors, weakness, other Endocrine: Denies: no symptoms, excessive sweating, flushing, intolerance to cold, intolerance to heat, increased hunger, increased thirst, increased urine, unexplained weight gain, unexplained weight loss, other Allergies: Coded Allergies: No Known Allergies (Unverified , 06/11/17) Subjective 04/29 remains on heparin gtt, labs noted, no bleeding, h/h stable, on folate 04/30 meds noted, changed to apixaban, labs noted 05/02 asleep, no bleeding, meds noted, labs reviewed, on noac 05/03 is asleep, no bleeding, no night sweats reported, cbc noted 05/04 remains lethargic, hgb 9.7, no bleeding, meds noted 05/05 labs reviewed, hgb 9.5, dressing changes, no events is combative overnight, is on 2lnc, apixaban 05/07 labs reviewed, meds noted, no fc, wbc 4.7 05/08 labs reviewed, hgb 10.4, no bleeding, meds reviewed, no hemolysis, peg tomorrow Objective Objective Current Medications Medications (Trade) Dose Ordered Sig/Lopez Route PRN Reason Start Time Stop Time Status Last Admin Dose Admin Acetaminophen (Tylenol) 650 mg Q4H PRN NG fever 05/07/20 20:45 06/06/20 20:44 05/07/20 20:58 Apixaban (Eliquis) 5 mg BID NGT 05/08/20 09:00 08/06/20 08:59 05/09/20 09:39 Ceftriaxone Sodium 1 gm/ Dextrose 55 ml @ 110 mls/hr Q24H IVPB 05/07/20 09:00 05/14/20 08:59 05/09/20 09:39 Chlorhexidine Gluconate (Arpita-Hex 2%) 1 applic DAILY@2000 TOPIC 04/29/20 20:00 07/28/20 19:59 05/08/20 21:37 Clonidine HCl (Catapres Tab) 0.1 mg Q8H PRN GT For High Blood Pressure 05/05/20 16:45 08/03/20 16:44 Dextrose (Dextrose 50%) 25 ml Q30M PRN IV Hypoglycemia 04/25/20 00:00 07/24/20 00:00 Dextrose (Dextrose 50%) 50 ml Q30M PRN IV Hypoglycemia 04/25/20 00:00 07/24/20 00:00 Folic Acid (Folate) 1 mg DAILY NG 05/08/20 09:00 06/07/20 08:59 05/09/20 09:39 Insulin Aspart (NovoLOG) EVERY 6 HOURS SUBQ 05/08/20 06:00 07/24/20 18:00 Lamotrigine (LaMICtal) 25 mg DAILY NG 05/08/20 09:00 06/07/20 08:59 05/09/20 09:38 Memantine (Namenda) 5 mg TWICE A DAY NG 05/08/20 09:00 06/07/20 08:59 05/09/20 09:38 Metoprolol Tartrate (Lopressor) 50 mg BID GT 05/01/20 20:00 07/30/20 19:59 05/09/20 09:38 Olanzapine (ZyPREXA) 5 mg DAILY NG 05/08/20 09:00 06/22/20 08:59 05/09/20 09:39 Ondansetron HCl (Zofran) 4 mg Q6H PRN IVP Nausea & Vomiting 04/25/20 00:00 05/25/20 00:00 Polyethylene Glycol (Miralax) 17 gm DAILYPRN PRN NG Constipation 05/07/20 20:45 06/06/20 20:44 Quetiapine Fumarate (SEROqueL) 50 mg Q12HR NG 05/07/20 21:00 06/21/20 20:59 05/09/20 09:39 Last 24 Hour Vital Signs Date Time Temp Pulse Resp B/P (MAP) Pulse Ox O2 Delivery O2 Flow Rate FiO2 05/09/20 09:38 71 115/59 05/09/20 08:00 98.2 71 20 115/59 (77) 99 05/09/20 04:00 68 05/09/20 04:00 98.1 69 20 115/64 (81) 99 05/09/20 04:00 2.0 05/09/20 00:00 99.3 61 20 108/51 (70) 100 05/09/20 00:00 72 05/09/20 00:00 2.0 05/08/20 21:00 Nasal Cannula 2.0 05/08/20 20:11 98 Nasal Cannula 2.0 28 05/08/20 20:00 98.4 66 20 129/48 (75) 98 05/08/20 20:00 67 05/08/20 17:28 75 141/66 05/08/20 16:00 2.0 05/08/20 16:00 2.0 05/08/20 16:00 97.9 90 22 141/66 (91) 99 05/08/20 16:00 Nasal Cannula 2.0 05/08/20 16:00 75 05/08/20 12:00 2.0 05/08/20 12:00 97.7 63 19 120/56 (77) 97 05/08/20 12:00 Nasal Cannula 2.0 05/08/20 11:46 65 05/08/20 08:45 70 142/68 05/08/20 08:00 Nasal Cannula 2.0 05/08/20 08:00 98.0 70 18 142/68 (92) 98 05/08/20 08:00 2.0 05/08/20 07:59 74 05/08/20 07:22 98 Nasal Cannula 2.0 28 05/08/20 04:05 69 05/08/20 04:00 Nasal Cannula 2.0 05/08/20 04:00 3.0 05/08/20 04:00 97.2 68 17 115/60 (78) 99 05/08/20 00:00 99.0 66 20 111/66 (81) 99 05/08/20 00:00 Nasal Cannula 2.0 05/07/20 23:37 69 05/07/20 21:28 98.2 05/07/20 20:00 101.8 63 20 125/75 (92) 99 20 20:00 Nasal Cannula 2.0 05/07/20 20:00 3.0 05/07/20 20:00 66 05/07/20 19:26 98 Nasal Cannula 2.0 28 05/07/20 18:35 78 131/74 05/07/20 16:00 Nasal Cannula 2.0 20 16:00 76 05/07/20 16:00 2.0 05/07/20 16:00 99.5 78 22 119/65 (83) 99 05/07/20 12:00 2.0 05/07/20 12:00 Nasal Cannula 2.0 05/07/20 12:00 100.2 80 16 113/49 (70) 100 05/07/20 12:00 67 Intake and Output 05/08/20 05/09/20 19:00 07:00 Intake Total 650 ml Output Total 650 ml 700 ml Balance 0 ml -700 ml Free Water 150 ml Tube Feeding 500 ml Output Urine Total 650 ml 700 ml # Bowel Movements 3 1 Labs Test 05/06/20 11:43 05/06/20 16:57 05/06/20 21:24 05/07/20 00:28 POC Whole Blood Glucose 95 MG/DL (74-106) 83 MG/DL (74-106) 89 MG/DL (74-106) Test 05/07/20 02:55 05/07/20 05:10 05/07/20 12:00 05/07/20 12:05 White Blood Count 4.7 K/UL (4.8-10.8) Red Blood Count 3.09 M/UL (4.70-6.10) Hemoglobin 9.4 G/DL (14.2-18.0) Hematocrit 30.0 % (42.0-52.0) Mean Corpuscular Volume 97 FL (80-99) Mean Corpuscular Hemoglobin 30.4 PG (27.0-31.0) Mean Corpuscular Hemoglobin Concent 31.4 G/DL (32.0-36.0) Red Cell Distribution Width 14.1 % (11.6-14.8) Platelet Count 231 K/UL (150-450) Mean Platelet Volume 5.9 FL (6.5-10.1) Neutrophils (%) (Auto) 60.0 % (45.0-75.0) Lymphocytes (%) (Auto) 23.2 % (20.0-45.0) Monocytes (%) (Auto) 8.3 % (1.0-10.0) Eosinophils (%) (Auto) 7.3 % (0.0-3.0) Basophils (%) (Auto) 1.2 % (0.0-2.0) Erythrocyte Sedimentation Rate 48 MM/HR (0-20) Sodium Level 142 MMOL/L (136-145) Potassium Level 4.6 MMOL/L (3.5-5.1) Chloride Level 110 MMOL/L (98-107) Carbon Dioxide Level 32 MMOL/L (21-32) Anion Gap 0 mmol/L (5-15) Blood Urea Nitrogen 23 mg/dL (7-18) Creatinine 0.7 MG/DL (0.55-1.30) Estimat Glomerular Filtration Rate > 60 mL/min (>60) Glucose Level 103 MG/DL (74-106) Calcium Level 7.6 MG/DL (8.5-10.1) Phosphorus Level 3.1 MG/DL (2.5-4.9) Magnesium Level 2.2 MG/DL (1.8-2.4) Total Bilirubin 0.2 MG/DL (0.2-1.0) Aspartate Amino Transf (AST/SGOT) 29 U/L (15-37) Alanine Aminotransferase (ALT/SGPT) 27 U/L (12-78) Alkaline Phosphatase 74 U/L (46-116) C-Reactive Protein, Quantitative 5.8 mg/dL (0.00-0.90) Total Protein 4.5 G/DL (6.4-8.2) Albumin 1.4 G/DL (3.4-5.0) Globulin 3.1 g/dL Albumin/Globulin Ratio 0.5 (1.0-2.7) POC Whole Blood Glucose 96 MG/DL (74-106) 106 MG/DL (74-106) Urine Color Yellow Urine Appearance Clear Urine pH 8 (4.5-8.0) Urine Specific [place] 1.010 (1.005-1.035) Urine Protein 2+ (NEGATIVE) Urine Glucose (UA) Negative (NEGATIVE) Urine Ketones Negative (NEGATIVE) Urine Blood 1+ (NEGATIVE) Urine Nitrite Negative (NEGATIVE) Urine Bilirubin Negative (NEGATIVE) Urine Urobilinogen 4 MG/DL (0.0-1.0) Urine Leukocyte Esterase 1+ (NEGATIVE) Urine RBC 2-4 /HPF (0 - 0) Urine WBC 5-10 /HPF (0 - 0) Urine Squamous Epithelial Cells Occasional /LPF Urine Bacteria Few /HPF (NONE) Urine Yeast Few /HPF (NONE) Test 05/07/20 18:12 05/07/20 20:55 05/08/20 03:15 05/08/20 06:17 POC Whole Blood Glucose 106 MG/DL (74-106) 103 MG/DL (74-106) 116 MG/DL (74-106) White Blood Count 5.4 K/UL (4.8-10.8) Red Blood Count 3.08 M/UL (4.70-6.10) Hemoglobin 9.3 G/DL (14.2-18.0) Hematocrit 29.5 % (42.0-52.0) Mean Corpuscular Volume 96 FL (80-99) Mean Corpuscular Hemoglobin 30.3 PG (27.0-31.0) Mean Corpuscular Hemoglobin Concent 31.6 G/DL (32.0-36.0) Red Cell Distribution Width 14.0 % (11.6-14.8) Platelet Count 247 K/UL (150-450) Mean Platelet Volume 6.2 FL (6.5-10.1) Neutrophils (%) (Auto) 59.4 % (45.0-75.0) Lymphocytes (%) (Auto) 24.3 % (20.0-45.0) Monocytes (%) (Auto) 9.1 % (1.0-10.0) Eosinophils (%) (Auto) 6.1 % (0.0-3.0) Basophils (%) (Auto) 1.1 % (0.0-2.0) Sodium Level 140 MMOL/L (136-145) Potassium Level 4.5 MMOL/L (3.5-5.1) Chloride Level 109 MMOL/L (98-107) Carbon Dioxide Level 29 MMOL/L (21-32) Anion Gap 2 mmol/L (5-15) Blood Urea Nitrogen 24 mg/dL (7-18) Creatinine 0.6 MG/DL (0.55-1.30) Estimat Glomerular Filtration Rate > 60 mL/min (>60) Glucose Level 111 MG/DL (74-106) Calcium Level 7.9 MG/DL (8.5-10.1) Test 05/08/20 12:02 05/08/20 17:26 05/09/20 07:20 POC Whole Blood Glucose 118 MG/DL (74-106) 111 MG/DL (74-106) White Blood Count 5.8 K/UL (4.8-10.8) Red Blood Count 3.45 M/UL (4.70-6.10) Hemoglobin 10.4 G/DL (14.2-18.0) Hematocrit 33.5 % (42.0-52.0) Mean Corpuscular Volume 97 FL (80-99) Mean Corpuscular Hemoglobin 30.0 PG (27.0-31.0) Mean Corpuscular Hemoglobin Concent 30.9 G/DL (32.0-36.0) Red Cell Distribution Width 13.3 % (11.6-14.8) Platelet Count 251 K/UL (150-450) Mean Platelet Volume 6.4 FL (6.5-10.1) Neutrophils (%) (Auto) 62.6 % (45.0-75.0) Lymphocytes (%) (Auto) 19.6 % (20.0-45.0) Monocytes (%) (Auto) 10.8 % (1.0-10.0) Eosinophils (%) (Auto) 5.3 % (0.0-3.0) Basophils (%) (Auto) 1.7 % (0.0-2.0) Sodium Level 141 MMOL/L (136-145) Potassium Level 4.7 MMOL/L (3.5-5.1) Chloride Level 108 MMOL/L (98-107) Carbon Dioxide Level 30 MMOL/L (21-32) Anion Gap 3 mmol/L (5-15) Blood Urea Nitrogen 22 mg/dL (7-18) Creatinine 0.6 MG/DL (0.55-1.30) Estimat Glomerular Filtration Rate > 60 mL/min (>60) Glucose Level 111 MG/DL (74-106) Calcium Level 8.0 MG/DL (8.5-10.1) Height (Feet): 6 Height (Inches): 0.00 Weight (Pounds): 148 Sree Dubon MD May 09, 2020 10:03
--- NOTE | 2020-05-09 11:29 | General Progress Note ---
Subjective ROS Limited/Unobtainable: Yes Allergies: Coded Allergies: No Known Allergies (Unverified , 06/11/17) Objective Last 24 Hour Vital Signs Date Time Temp Pulse Resp B/P (MAP) Pulse Ox O2 Delivery O2 Flow Rate FiO2 05/09/20 09:38 71 115/59 05/09/20 08:00 98.2 71 20 115/59 (77) 99 05/09/20 08:00 2.0 05/09/20 07:38 73 05/09/20 04:00 68 05/09/20 04:00 98.1 69 20 115/64 (81) 99 05/09/20 04:00 2.0 05/09/20 00:00 99.3 61 20 108/51 (70) 100 05/09/20 00:00 72 05/09/20 00:00 2.0 05/08/20 21:00 Nasal Cannula 2.0 05/08/20 20:11 98 Nasal Cannula 2.0 28 05/08/20 20:00 98.4 66 20 129/48 (75) 98 05/08/20 20:00 67 05/08/20 17:28 75 141/66 05/08/20 16:00 2.0 05/08/20 16:00 2.0 05/08/20 16:00 97.9 90 22 141/66 (91) 99 05/08/20 16:00 Nasal Cannula 2.0 05/08/20 16:00 75 05/08/20 12:00 2.0 05/08/20 12:00 97.7 63 19 120/56 (77) 97 05/08/20 12:00 Nasal Cannula 2.0 05/08/20 11:46 65 Intake and Output 05/08/20 05/09/20 19:00 07:00 Intake Total 650 ml Output Total 650 ml 700 ml Balance 0 ml -700 ml Free Water 150 ml Tube Feeding 500 ml Output Urine Total 650 ml 700 ml # Bowel Movements 3 1 Laboratory Tests 05/08/20 12:02: POC Whole Blood Glucose 118H 05/08/20 17:26: POC Whole Blood Glucose 111H 05/09/20 07:20: White Blood Count 5.8, Red Blood Count 3.45L, Hemoglobin 10.4L, Hematocrit 33.5L , Mean Corpuscular Volume 97, Mean Corpuscular Hemoglobin 30.0, Mean Corpuscular Hemoglobin Concent 30.9L, Red Cell Distribution Width 13.3, Platelet Count 251, Mean Platelet Volume 6.4L, Neutrophils (%) (Auto) 62.6, Lymphocytes (%) (Auto) 19.6L, Monocytes (%) (Auto) 10.8H, Eosinophils (%) (Auto) 5.3H, Basophils (%) (Auto) 1.7, Sodium Level 141, Potassium Level 4.7, Chloride Level 108H, Carbon Dioxide Level 30, Anion Gap 3L, Blood Urea Nitrogen 22H, Creatinine 0.6, Estimat Glomerular Filtration Rate > 60, Glucose Level 111H, Calcium Level 8.0L Height (Feet): 6 Height (Inches): 0.00 Weight (Pounds): 148 Assessment/Plan Problem List: (1) Sepsis ICD Codes: A41.9 - Sepsis, unspecified organism SNOMED: 97058086 (2) Dehydration ICD Codes: E86.0 - Dehydration SNOMED: 57642403 (3) Hypernatremia ICD Codes: E87.0 - Hyperosmolality and hypernatremia SNOMED: 03894372 (4) Diabetes ICD Codes: E11.9 - Type 2 diabetes mellitus without complications SNOMED: 56340962 (5) UTI (urinary tract infection) ICD Codes: N39.0 - Urinary tract infection, site not specified SNOMED: 17620217 (6) HTN (hypertension) ICD Codes: I10 - Essential (primary) hypertension SNOMED: 58917687 (7) CVA (cerebral vascular accident) ICD Codes: I63.9 - Cerebral infarction, unspecified SNOMED: 967335407 (8) KORY (acute kidney injury) ICD Codes: N17.9 - Acute kidney failure, unspecified SNOMED: 8133076, 35020146 Status: unchanged Assessment/Plan: uti htn cva resp insuff afebrile reviewed chart and labs check Kaylen Parker MD May 09, 2020 11:29
[2020-05-09 12:00] VITALS: BP 103/51
--- NOTE | 2020-05-09 12:55 | Nephrology Progress Note ---
Assessment/Plan Problem List: (1) KORY (acute kidney injury) (2) Hypernatremia (3) Dehydration (4) Acute respiratory failure Assessment Patient presents with acute hypoxic respiratory failure requiring BiPAP Sepsis lactic acidosis KORY Dehydration, hypernatremia History of COPD Anemia Low BMI, malnutrition. BMI of 20.1 History of CVA History of diabetes mellitus Plan May 09: Labs reviewed. Renal parameters stable. Continue per consultants. May 08: Labs reviewed. Renal parameters stable. Continue per current management. May 07: Labs reviewed. Renal parameters stable. Continue per current treatment plan. May 06: Labs reviewed. Renal parameters stable. Continue per consultants. Remains full code. May 05: Labs reviewed. Renal parameters stable. Continue current management. Remains on Venturi mask. Remains full code. Calcium supplement discontinued May 04: Labs reviewed. Renal parameters are stable. Continue per current management. May 03: Labs reviewed. Renal parameters stable. Phosphorus supplement IV given. May 02: Serum sodium up to 144. Stable from renal standpoint of view. Continue per consultants. May 01: Serum serum sodium 136. Will stop D5W IV fluid. 1 dose of Lasix IV. Potassium supplement. Continue to monitor electrolytes. Continue per consultants. April 30: Serum sodium 146. Low phosphorus replaced. Continue pulmonary support and per consultants. April 29: Serum sodium normalized. Electrolytes within normal limit. Remains on nonrebreather mask. Continue per consultants. April 28: Continue D5W. Abnormal electrolytes addressed. Continue per consultants. Remains full code. Remains on nonrebreather mask. April 27: Continue D5W. Continue pulmonary support. Monitor renal parameters and electrolytes. Continue per consultants. Patient full code. Remains on nonrebreathing mask. Contreras catheter IV D5W Monitor electrolytes and renal parameters Antibiotics Avoid nephrotoxic's 2D echocardiogram Per orders Subjective ROS Limited/Unobtainable: Yes Objective Objective Last 24 Hour Vital Signs Date Time Temp Pulse Resp B/P (MAP) Pulse Ox O2 Delivery O2 Flow Rate FiO2 05/09/20 12:00 2.0 05/09/20 12:00 97.9 60 20 103/51 (68) 99 05/09/20 09:38 71 115/59 05/09/20 09:00 Nasal Cannula 2.0 05/09/20 08:00 98.2 71 20 115/59 (77) 99 05/09/20 08:00 2.0 05/09/20 07:38 73 05/09/20 07:00 99 Nasal Cannula 2.0 28 05/09/20 04:00 68 05/09/20 04:00 98.1 69 20 115/64 (81) 99 05/09/20 04:00 2.0 05/09/20 00:00 99.3 61 20 108/51 (70) 100 05/09/20 00:00 72 05/09/20 00:00 2.0 05/08/20 21:00 Nasal Cannula 2.0 05/08/20 20:11 98 Nasal Cannula 2.0 28 05/08/20 20:00 98.4 66 20 129/48 (75) 98 05/08/20 20:00 67 05/08/20 17:28 75 141/66 05/08/20 16:00 2.0 05/08/20 16:00 2.0 05/08/20 16:00 97.9 90 22 141/66 (91) 99 05/08/20 16:00 Nasal Cannula 2.0 05/08/20 16:00 75 Intake and Output 05/08/20 05/09/20 19:00 07:00 Intake Total 650 ml Output Total 650 ml 700 ml Balance 0 ml -700 ml Free Water 150 ml Tube Feeding 500 ml Output Urine Total 650 ml 700 ml # Bowel Movements 3 1 Current Medications Medications (Trade) Dose Ordered Sig/Lopez Route PRN Reason Start Time Stop Time Status Last Admin Dose Admin Acetaminophen (Tylenol) 650 mg Q4H PRN NG fever 05/07/20 20:45 06/06/20 20:44 05/07/20 20:58 Apixaban (Eliquis) 5 mg BID NGT 05/08/20 09:00 08/06/20 08:59 05/09/20 09:39 Ceftriaxone Sodium 1 gm/ Dextrose 55 ml @ 110 mls/hr Q24H IVPB 05/07/20 09:00 05/14/20 08:59 05/09/20 09:39 Chlorhexidine Gluconate (Arpita-Hex 2%) 1 applic DAILY@2000 TOPIC 04/29/20 20:00 07/28/20 19:59 05/08/20 21:37 Clonidine HCl (Catapres Tab) 0.1 mg Q8H PRN GT For High Blood Pressure 05/05/20 16:45 08/03/20 16:44 Dextrose (Dextrose 50%) 25 ml Q30M PRN IV Hypoglycemia 04/25/20 00:00 07/24/20 00:00 Dextrose (Dextrose 50%) 50 ml Q30M PRN IV Hypoglycemia 04/25/20 00:00 07/24/20 00:00 Folic Acid (Folate) 1 mg DAILY NG 05/08/20 09:00 06/07/20 08:59 05/09/20 09:39 Insulin Aspart (NovoLOG) EVERY 6 HOURS SUBQ 05/08/20 06:00 07/24/20 18:00 Lamotrigine (LaMICtal) 25 mg DAILY NG 05/08/20 09:00 06/07/20 08:59 05/09/20 09:38 Memantine (Namenda) 5 mg TWICE A DAY NG 05/08/20 09:00 06/07/20 08:59 05/09/20 09:38 Metoprolol Tartrate (Lopressor) 50 mg BID GT 05/01/20 20:00 07/30/20 19:59 05/09/20 09:38 Olanzapine (ZyPREXA) 5 mg DAILY NG 05/08/20 09:00 06/22/20 08:59 05/09/20 09:39 Ondansetron HCl (Zofran) 4 mg Q6H PRN IVP Nausea & Vomiting 04/25/20 00:00 05/25/20 00:00 Polyethylene Glycol (Miralax) 17 gm DAILYPRN PRN NG Constipation 05/07/20 20:45 06/06/20 20:44 Quetiapine Fumarate (SEROqueL) 50 mg Q12HR NG 05/07/20 21:00 06/21/20 20:59 05/09/20 09:39 Laboratory Tests 05/08/20 17:26: POC Whole Blood Glucose 111H 05/09/20 07:20: White Blood Count 5.8, Red Blood Count 3.45L, Hemoglobin 10.4L, Hematocrit 33.5L , Mean Corpuscular Volume 97, Mean Corpuscular Hemoglobin 30.0, Mean Corpuscular Hemoglobin Concent 30.9L, Red Cell Distribution Width 13.3, Platelet Count 251, Mean Platelet Volume 6.4L, Neutrophils (%) (Auto) 62.6, Lymphocytes (%) (Auto) 19.6L, Monocytes (%) (Auto) 10.8H, Eosinophils (%) (Auto) 5.3H, Basophils (%) (Auto) 1.7, Sodium Level 141, Potassium Level 4.7, Chloride Level 108H, Carbon Dioxide Level 30, Anion Gap 3L, Blood Urea Nitrogen 22H, Creatinine 0.6, Estimat Glomerular Filtration Rate > 60, Glucose Level 111H, Calcium Level 8.0L 05/09/20 12:04: POC Whole Blood Glucose 125H Height (Feet): 6 Height (Inches): 0.00 Weight (Pounds): 148 General Appearance: no apparent distress Cardiovascular: normal rate Respiratory/Chest: decreased breath sounds Abdomen: soft Maximino Castillo MD May 09, 2020 12:55
[2020-05-09] MEDS ORDERED: NS 275ml ONE (14:17)
[2020-05-09 15:39] VITALS: BP 108/51
--- NOTE | 2020-05-09 16:15 | General Progress Note ---
Subjective Allergies: Coded Allergies: No Known Allergies (Unverified , 06/11/17) Subjective above noted obtunded, non communicative tolerating NGT feeds Objective Last 24 Hour Vital Signs Date Time Temp Pulse Resp B/P (MAP) Pulse Ox O2 Delivery O2 Flow Rate FiO2 05/09/20 15:39 97.7 66 20 108/51 (70) 97 05/09/20 12:00 2.0 05/09/20 12:00 97.9 60 20 103/51 (68) 99 05/09/20 11:45 56 05/09/20 09:38 71 115/59 05/09/20 09:00 Nasal Cannula 2.0 05/09/20 08:00 98.2 71 20 115/59 (77) 99 05/09/20 08:00 2.0 05/09/20 07:38 73 05/09/20 07:00 99 Nasal Cannula 2.0 28 05/09/20 04:00 68 05/09/20 04:00 98.1 69 20 115/64 (81) 99 05/09/20 04:00 2.0 05/09/20 00:00 99.3 61 20 108/51 (70) 100 05/09/20 00:00 72 05/09/20 00:00 2.0 05/08/20 21:00 Nasal Cannula 2.0 05/08/20 20:11 98 Nasal Cannula 2.0 28 05/08/20 20:00 98.4 66 20 129/48 (75) 98 05/08/20 20:00 67 05/08/20 17:28 75 141/66 Intake and Output 05/08/20 05/09/20 18:59 06:59 Intake Total 700 ml Output Total 650 ml 700 ml Balance 50 ml -700 ml Free Water 150 ml Tube Feeding 550 ml Output Urine Total 650 ml 700 ml # Bowel Movements 3 1 Laboratory Tests 05/08/20 17:26: POC Whole Blood Glucose 111H 05/09/20 07:20: White Blood Count 5.8, Red Blood Count 3.45L, Hemoglobin 10.4L, Hematocrit 33.5L , Mean Corpuscular Volume 97, Mean Corpuscular Hemoglobin 30.0, Mean Corpuscular Hemoglobin Concent 30.9L, Red Cell Distribution Width 13.3, Platelet Count 251, Mean Platelet Volume 6.4L, Neutrophils (%) (Auto) 62.6, Lymphocytes (%) (Auto) 19.6L, Monocytes (%) (Auto) 10.8H, Eosinophils (%) (Auto) 5.3H, Basophils (%) (Auto) 1.7, Sodium Level 141, Potassium Level 4.7, Chloride Level 108H, Carbon Dioxide Level 30, Anion Gap 3L, Blood Urea Nitrogen 22H, Creatinine 0.6, Estimat Glomerular Filtration Rate > 60, Glucose Level 111H, Calcium Level 8.0L 05/09/20 12:04: POC Whole Blood Glucose 125H Height (Feet): 6 Height (Inches): 0.00 Weight (Pounds): 148 Objective NCAT supple Coarse ronchi RR abd soft flat no edema OBS Assessment/Plan Status: unchanged Assessment/Plan: Assessment/Plan 1. COPD. 2. Diabetes. 3. Schizophrenia. 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 5. Dementia. 6. Anemia 7. Dysphagia 8. Folate deficiency Recommendations TF folate neg stool ob>>> neg plan PEG for sunday 2 MD consent given no family available will Ty Pena MD May 09, 2020 16:15
--- NOTE | 2020-05-09 17:35 | NUR ---
NURSE NOTES: RN found out penis and scrotum swollen, Dr Hicks who covering Dr Carlin is aware and ordered consult with Dr Amador, noted and carried out. Dr Amador is aware. will continue to monitor.
--- NOTE | 2020-05-09 18:25 | NUR ---
NURSE NOTES: wound treatment done as order and pt tolerated well. will continue to monitor.
--- NOTE | 2020-05-09 19:21 | NUR ---
NURSE HAND-OFF REPORT: Important Events on Shift: Patient Status: Diet: Pending Orders: Pending Results/Labs: Pending MD notification: Latest Vital Signs: Temperature 97.7 , Pulse 66 , B/P 108 /51 , Respiratory Rate 20 , O2 SAT 97 , Nasal Cannula, O2 Flow Rate 2.0 . Vital Sign Comment: EKG Rhythm: SR with PJC's Rhythm change?: N MD Notified?: Whitney Whitney MD Response: No New Orders Received Latest Andersen Fall Score: 70 Fall Risk: High Risk Safety Measures: Call light Within Reach, Bed Alarm Zone 2, Side Rails Side Rails x3, Bed position Low and Locked. Fall Precautions: Yellow Socks Yellow Gown Door Sign Patient Fall Education Report given to . Pt is sleeping and stable, no stress noted, Endorsed plan of care, Endorsed to keep pt NPO from mid night due to EGD tomorrow and monitor penis and scrotum swollen.
--- NOTE | 2020-05-09 19:25 | NUR ---
NURSE NOTES: Received report from CRUZ Gramajo. Pt A/O x 1 with periods of confusion noted. Occasionally noted mumbling words. On O2 via NC at 2L/MIN, no resp distress noted. campus monitor in place.On NGT feeding of Glucerna 1.2 at 50cc/hr. NGT in left nares in place & patent. Aspiration precautions observed, HOB elevated. f/c in place & patent draining to gravity yellow urine. LEI double lumen PICC line in place & patent. No s/s pain noted. Bed in low position & locked. side rails up x3. Call light with in reach. Bed alarm on. Will continue plan of care.
[2020-05-09 20:00] VITALS: BP 151/67
[2020-05-09] MEDS: Dyna-Hex 2% Top Sol 2oz TOPIC SCH (21:03)
--- NOTE | 2020-05-09 23:46 | Cardiology Progress Note ---
Assessment/Plan Assessment/Plan 1. Wandering pacemaker or multifocal atrial rhythm, now in sinus rhythm with APC bigeminy, continue metoprolol. 2. Dyspnea most likely due to bilateral pulmonary emboli, on Eliquis, 2D echo reveals normal LV function. 3. History of CVA with left hemiparesis. 4. Hypoxic respiratory failure, on NC oxygen now. 5. Diabetes Mellitus, continue ASA and statins. 6. Dysphagia. Subjective Subjective Sinus rhythm at rate of 69. On NC oxygen Objective Last 24 Hour Vital Signs Date Time Temp Pulse Resp B/P (MAP) Pulse Ox O2 Delivery O2 Flow Rate FiO2 05/09/20 20:00 69 05/09/20 20:00 98.6 60 16 151/67 (95) 99 05/09/20 20:00 2.0 05/09/20 17:53 66 108/51 05/09/20 16:00 2.0 05/09/20 15:58 66 05/09/20 15:39 97.7 66 20 108/51 (70) 97 05/09/20 12:00 2.0 05/09/20 12:00 97.9 60 20 103/51 (68) 99 05/09/20 11:45 56 05/09/20 09:38 71 115/59 05/09/20 09:00 Nasal Cannula 2.0 05/09/20 08:00 98.2 71 20 115/59 (77) 99 05/09/20 08:00 2.0 05/09/20 07:38 73 05/09/20 07:00 99 Nasal Cannula 2.0 28 05/09/20 04:00 68 05/09/20 04:00 98.1 69 20 115/64 (81) 99 05/09/20 04:00 2.0 05/09/20 00:00 99.3 61 20 108/51 (70) 100 05/09/20 00:00 72 05/09/20 00:00 2.0 Intake and Output 05/08/20 05/09/20 19:00 07:00 Intake Total 650 ml 50 ml Output Total 650 ml 700 ml Balance 0 ml -650 ml Free Water 150 ml Tube Feeding 500 ml 50 ml Output Urine Total 650 ml 700 ml # Bowel Movements 3 1 2D Echo: LVEF 55%, limited views Laboratory Tests Test 05/09/20 07:20 05/09/20 12:04 05/09/20 17:58 05/09/20 23:43 White Blood Count 5.8 K/UL (4.8-10.8) Red Blood Count 3.45 M/UL (4.70-6.10) L Hemoglobin 10.4 G/DL (14.2-18.0) L Hematocrit 33.5 % (42.0-52.0) L Mean Corpuscular Volume 97 FL (80-99) Mean Corpuscular Hemoglobin 30.0 PG (27.0-31.0) Mean Corpuscular Hemoglobin Concent 30.9 G/DL (32.0-36.0) L Red Cell Distribution Width 13.3 % (11.6-14.8) Platelet Count 251 K/UL (150-450) Mean Platelet Volume 6.4 FL (6.5-10.1) L Neutrophils (%) (Auto) 62.6 % (45.0-75.0) Lymphocytes (%) (Auto) 19.6 % (20.0-45.0) L Monocytes (%) (Auto) 10.8 % (1.0-10.0) H Eosinophils (%) (Auto) 5.3 % (0.0-3.0) H Basophils (%) (Auto) 1.7 % (0.0-2.0) Sodium Level 141 MMOL/L (136-145) Potassium Level 4.7 MMOL/L (3.5-5.1) Chloride Level 108 MMOL/L (98-107) H Carbon Dioxide Level 30 MMOL/L (21-32) Anion Gap 3 mmol/L (5-15) L Blood Urea Nitrogen 22 mg/dL (7-18) H Creatinine 0.6 MG/DL (0.55-1.30) Estimat Glomerular Filtration Rate > 60 mL/min (>60) Glucose Level 111 MG/DL (74-106) H Calcium Level 8.0 MG/DL (8.5-10.1) L POC Whole Blood Glucose 125 MG/DL (74-106) H Pending Pending Microbiology Date/Time Source Procedure Growth Status 05/07/20 12:00 Urine,Clean Catch Urine Culture - Final NO GROWTH AFTER 48 HOURS Complete Objective HEENT: normocephalic, atraumatic, bilateral eye PERRL, bilateral eye EOMI, on NC. Neck: JVP cannot be assessed, no carotid bruit. Respiratory: Bilateral rhonchi Cardiovascular: normal S1S2, irregular rhythm, no murmurs, gallops or rubs Gastrointestinal: non tender, soft, non-distended, no guarding Extremities: No edema, clubbing or cyanosis. Neurologic: Left hemiparesis, responds to commands, localizes to pain Gama Whitney MD May 09, 2020 23:46
[2020-05-10] VITALS (10 sets, daily range): BP systolic 116–142; BP diastolic 60–73
--- NOTE | 2020-05-10 | NUR ---
NURSE NOTES: NGT FEEDING HELD FOR EGD/PEG PLACEMENT.
[2020-05-10 03:27] LABS: BASOPHILS % (AUTO) 2.1 % (0.0-2.0); EOSINOPHILS % (AUTO) 8.8 % (0.0-3.0); HEMATOCRIT 29.7 % (42.0-52.0); HEMOGLOBIN 9.4 G/DL (14.2-18.0); LYMPHOCYTES % (AUTO) 26.3 % (20.0-45.0); MEAN CORPUSCULAR VOLUME 95 FL (80-99); MONOCYTES % (AUTO) 9.7 % (1.0-10.0); NEUTROPHILS % (AUTO) 53.1 % (45.0-75.0); PLATELET COUNT 248 K/UL (150-450); RED BLOOD COUNT 3.13 M/UL (4.70-6.10); RED CELL DISTRIBUTION WIDTH 13.4 % (11.6-14.8); WHITE BLOOD COUNT 4.8 K/UL (4.8-10.8)
[2020-05-10 03:40] LABS: INR 1.1 (0.9-1.1)
[2020-05-10 03:42] LABS: ANION GAP 1 mmol/L (5-15); BLOOD UREA NITROGEN 23 mg/dL (7-18); CARBON DIOXIDE 32 MMOL/L (21-32); CHLORIDE 108 MMOL/L (98-107); CREATININE 0.5 MG/DL (0.55-1.30); POTASSIUM 4.4 MMOL/L (3.5-5.1); SODIUM 141 MMOL/L (136-145)
[2020-05-10] MEDS: NovoLOG Insulin Flexpen SUBQ SCH ×4 (05:53→18:00)
--- NOTE | 2020-05-10 06:29 | Pre-Procedure Note/Attestation ---
Pre-Procedure Note/Attestation Complete Prior to Procedure Planned Procedure: not applicable Procedure Narrative: egd/peg Indications for Procedure Pre-Operative Diagnosis: dysphagia Attestation I attest that I discussed the nature of the procedure; its benefits; risks and complications; and alternatives (and the risks and benefits of such alternatives), prior to the procedure, with the patient (or the patient's legal ambulatory services representative). I attest that, if there was a reasonable possibility of needing a blood transfu duy, the patient (or the patient's legal ambulatory services representative) was given the [facility] standardized written summary, pursuant to the Adam Wilver Blood Safety Act ([place] Health and Safety Code # 1645, as amended). I attest that I re-evaluated the patient just prior to the surgery and that there has been no change in the patient's H&P, except as documented below: Nathan Short MD May 10, 2020 06:29
--- NOTE | 2020-05-10 06:35 | Hematology/Onc Progress Note ---
Assessment/Plan Assessment/Plan # Bilateral pulmonary emboli on cta as well as Dvt on duplex --> Equivocal evidence of right heart strain; RV /LV ratio around 0.5 but is somewhat difficult to assess due to ventricular muscle hypertrophy --> duplex Positive for bilateral lower extremity deep venous thrombosis, as described --> continue on heparin gtt until stabilizes, then consider noac --> 04/29 started on eliquis # Anemia of chronic disease, anemia panel is noted --> r/o bleed, is on anticoag --> hgb 10-->8.7-->8.5-->9.4-->9.7-->>9.5-->9.4->10.4-->9.4 -> no hemolysis is noted # Leukocytosis due to sepsis/uti --> ABX Cefepime/vanc-->off --> smear is reviewed --> wbc 7-->4-->4.8 # COPD. --> breathing rx as needed # Diabetes mellitus --> iss, accuchecks qac and qhs # Schizophrenia. --> per psych recs # History of CVA with left hemiparesis. # Dementia. # Dysphagia -> for peg 05/10 # Folate def # Dvt ppx eliquis Appreciate consultation and jorge l Coon Subjective Constitutional: Denies: no symptoms, chills, fever, malaise, weakness, other HEENT: Denies: no symptoms, eye pain, blurred vision, tearing, double vision, ear pain, ear discharge, nose pain, nose congestion, throat pain, throat swelling, mouth pain, mouth swelling, other Respiratory: Denies: no symptoms, cough, shortness of breath, SOB with excertion, SOB at rest, sputum, wheezing, other Gastrointestinal/Abdominal: Denies: no symptoms, abdomen distended, abdominal pain, black stools, tarry stools, blood in stool, constipated, diarrhea, difficulty swallowing, nausea, poor appetite, poor fluid intake, rectal bleeding, vomiting, other Genitourinary: Denies: no symptoms, burning, discharge, frequency, flank pain, hematuria, incontinence, pain, urgency, other Neurologic/Psychiatric: Denies: no symptoms, anxiety, depressed, emotional problems, headache, numbness, paresthesia, pre-existing deficit, seizure, tingling, tremors, weakness, other Endocrine: Denies: no symptoms, excessive sweating, flushing, intolerance to cold, intolerance to heat, increased hunger, increased thirst, increased urine, unexplained weight gain, unexplained weight loss, other Allergies: Coded Allergies: No Known Allergies (Unverified , 06/11/17) Subjective 04/29 remains on heparin gtt, labs noted, no bleeding, h/h stable, on folate 04/30 meds noted, changed to apixaban, labs noted 05/02 asleep, no bleeding, meds noted, labs reviewed, on noac 05/03 is asleep, no bleeding, no night sweats reported, cbc noted 05/04 remains lethargic, hgb 9.7, no bleeding, meds noted 05/05 labs reviewed, hgb 9.5, dressing changes, no events is combative overnight, is on 2lnc, apixaban 05/07 labs reviewed, meds noted, no fc, wbc 4.7 05/08 labs reviewed, hgb 10.4, no bleeding, meds reviewed, no hemolysis, peg tomorrow 05/09 ngt feedings being held for procedure today with gi Objective Objective Current Medications Medications (Trade) Dose Ordered Sig/Lopez Route PRN Reason Start Time Stop Time Status Last Admin Dose Admin Acetaminophen (Tylenol) 650 mg Q4H PRN NG fever 05/07/20 20:45 06/06/20 20:44 05/07/20 20:58 Apixaban (Eliquis) 5 mg BID NGT 05/08/20 09:00 08/06/20 08:59 05/09/20 17:53 Ceftriaxone Sodium 1 gm/ Dextrose 55 ml @ 110 mls/hr Q24H IVPB 05/07/20 09:00 05/14/20 08:59 05/09/20 09:39 Chlorhexidine Gluconate (Arpita-Hex 2%) 1 applic DAILY@1999 TOPIC 04/29/20 20:00 07/28/20 19:59 05/09/20 21:03 Clonidine HCl (Catapres Tab) 0.1 mg Q8H PRN GT For High Blood Pressure 05/05/20 16:45 08/03/20 16:44 Dextrose (Dextrose 50%) 25 ml Q30M PRN IV Hypoglycemia 04/25/20 00:00 07/24/20 00:00 Dextrose (Dextrose 50%) 50 ml Q30M PRN IV Hypoglycemia 04/25/20 00:00 07/24/20 00:00 Folic Acid (Folate) 1 mg DAILY NG 05/08/20 09:00 06/07/20 08:59 05/09/20 09:39 Insulin Aspart (NovoLOG) EVERY 6 HOURS SUBQ 05/08/20 06:00 07/24/20 18:00 Lamotrigine (LaMICtal) 25 mg DAILY NG 05/08/20 09:00 06/07/20 08:59 05/09/20 09:38 Memantine (Namenda) 5 mg TWICE A DAY NG 05/08/20 09:00 06/07/20 08:59 05/09/20 17:53 Metoprolol Tartrate (Lopressor) 50 mg BID GT 05/01/20 20:00 07/30/20 19:59 05/09/20 17:53 Olanzapine (ZyPREXA) 5 mg DAILY NG 05/08/20 09:00 06/22/20 08:59 05/09/20 09:39 Ondansetron HCl (Zofran) 4 mg Q6H PRN IVP Nausea & Vomiting 04/25/20 00:00 05/25/20 00:00 Polyethylene Glycol (Miralax) 17 gm DAILYPRN PRN NG Constipation 05/07/20 20:45 06/06/20 20:44 Quetiapine Fumarate (SEROqueL) 50 mg Q12HR NG 05/07/20 21:00 06/21/20 20:59 05/09/20 21:03 Last 24 Hour Vital Signs Date Time Temp Pulse Resp B/P (MAP) Pulse Ox O2 Delivery O2 Flow Rate FiO2 05/10/20 04:00 72 05/10/20 04:00 2.0 05/10/20 04:00 98.0 75 16 128/60 (82) 100 05/10/20 00:00 98.6 70 20 129/63 (85) 98 05/10/20 00:00 2.0 05/10/20 00:00 72 05/09/20 21:00 Nasal Cannula 2.0 05/09/20 20:00 69 05/09/20 20:00 98.6 60 16 151/67 (95) 99 05/09/20 20:00 2.0 05/09/20 17:53 66 108/51 05/09/20 16:00 2.0 05/09/20 15:58 66 05/09/20 15:39 97.7 66 20 108/51 (70) 97 05/09/20 12:00 2.0 05/09/20 12:00 97.9 60 20 103/51 (68) 99 05/09/20 11:45 56 05/09/20 09:38 71 115/59 05/09/20 09:00 Nasal Cannula 2.0 05/09/20 08:00 98.2 71 20 115/59 (77) 99 05/09/20 08:00 2.0 05/09/20 07:38 73 05/09/20 07:00 99 Nasal Cannula 2.0 28 05/09/20 04:00 68 05/09/20 04:00 98.1 69 20 115/64 (81) 99 05/09/20 04:00 2.0 05/09/20 00:00 99.3 61 20 108/51 (70) 100 05/09/20 00:00 72 05/09/20 00:00 2.0 05/08/20 21:00 Nasal Cannula 2.0 05/08/20 20:11 98 Nasal Cannula 2.0 28 05/08/20 20:00 98.4 66 20 129/48 (75) 98 05/08/20 20:00 67 05/08/20 17:28 75 141/66 05/08/20 16:00 2.0 05/08/20 16:00 2.0 05/08/20 16:00 97.9 90 22 141/66 (91) 99 05/08/20 16:00 Nasal Cannula 2.0 05/08/20 16:00 75 05/08/20 12:00 2.0 05/08/20 12:00 97.7 63 19 120/56 (77) 97 05/08/20 12:00 Nasal Cannula 2.0 05/08/20 11:46 65 05/08/20 08:45 70 142/68 05/08/20 08:00 Nasal Cannula 2.0 05/08/20 08:00 98.0 70 18 142/68 (92) 98 05/08/20 08:00 2.0 05/08/20 07:59 74 05/08/20 07:22 98 Nasal Cannula 2.0 28 Intake and Output 05/09/20 05/10/20 19:00 07:00 Intake Total 755 ml Output Total 800 ml 800 ml Balance -45 ml -800 ml Free Water 150 ml IV Total 55 ml Tube Feeding 550 ml Output Urine Total 800 ml 800 ml # Voids 1 # Bowel Movements 1 2 Labs Test 05/07/20 12:00 05/07/20 12:05 05/07/20 18:12 05/07/20 20:55 Urine Color Yellow Urine Appearance Clear Urine pH 8 (4.5-8.0) Urine Specific Slinger 1.010 (1.005-1.035) Urine Protein 2+ (NEGATIVE) Urine Glucose (UA) Negative (NEGATIVE) Urine Ketones Negative (NEGATIVE) Urine Blood 1+ (NEGATIVE) Urine Nitrite Negative (NEGATIVE) Urine Bilirubin Negative (NEGATIVE) Urine Urobilinogen 4 MG/DL (0.0-1.0) Urine Leukocyte Esterase 1+ (NEGATIVE) Urine RBC 2-4 /HPF (0 - 0) Urine WBC 5-10 /HPF (0 - 0) Urine Squamous Epithelial Cells Occasional /LPF Urine Bacteria Few /HPF (NONE) Urine Yeast Few /HPF (NONE) POC Whole Blood Glucose 106 MG/DL (74-106) 106 MG/DL (74-106) 103 MG/DL (74-106) Test 05/08/20 03:15 05/08/20 06:17 05/08/20 12:02 05/08/20 17:26 White Blood Count 5.4 K/UL (4.8-10.8) Red Blood Count 3.08 M/UL (4.70-6.10) Hemoglobin 9.3 G/DL (14.2-18.0) Hematocrit 29.5 % (42.0-52.0) Mean Corpuscular Volume 96 FL (80-99) Mean Corpuscular Hemoglobin 30.3 PG (27.0-31.0) Mean Corpuscular Hemoglobin Concent 31.6 G/DL (32.0-36.0) Red Cell Distribution Width 14.0 % (11.6-14.8) Platelet Count 247 K/UL (150-450) Mean Platelet Volume 6.2 FL (6.5-10.1) Neutrophils (%) (Auto) 59.4 % (45.0-75.0) Lymphocytes (%) (Auto) 24.3 % (20.0-45.0) Monocytes (%) (Auto) 9.1 % (1.0-10.0) Eosinophils (%) (Auto) 6.1 % (0.0-3.0) Basophils (%) (Auto) 1.1 % (0.0-2.0) Sodium Level 140 MMOL/L (136-145) Potassium Level 4.5 MMOL/L (3.5-5.1) Chloride Level 109 MMOL/L (98-107) Carbon Dioxide Level 29 MMOL/L (21-32) Anion Gap 2 mmol/L (5-15) Blood Urea Nitrogen 24 mg/dL (7-18) Creatinine 0.6 MG/DL (0.55-1.30) Estimat Glomerular Filtration Rate > 60 mL/min (>60) Glucose Level 111 MG/DL (74-106) Calcium Level 7.9 MG/DL (8.5-10.1) POC Whole Blood Glucose 116 MG/DL (74-106) 118 MG/DL (74-106) 111 MG/DL (74-106) Test 05/09/20 07:20 05/09/20 12:04 05/09/20 17:58 05/09/20 23:43 White Blood Count 5.8 K/UL (4.8-10.8) Red Blood Count 3.45 M/UL (4.70-6.10) Hemoglobin 10.4 G/DL (14.2-18.0) Hematocrit 33.5 % (42.0-52.0) Mean Corpuscular Volume 97 FL (80-99) Mean Corpuscular Hemoglobin 30.0 PG (27.0-31.0) Mean Corpuscular Hemoglobin Concent 30.9 G/DL (32.0-36.0) Red Cell Distribution Width 13.3 % (11.6-14.8) Platelet Count 251 K/UL (150-450) Mean Platelet Volume 6.4 FL (6.5-10.1) Neutrophils (%) (Auto) 62.6 % (45.0-75.0) Lymphocytes (%) (Auto) 19.6 % (20.0-45.0) Monocytes (%) (Auto) 10.8 % (1.0-10.0) Eosinophils (%) (Auto) 5.3 % (0.0-3.0) Basophils (%) (Auto) 1.7 % (0.0-2.0) Sodium Level 141 MMOL/L (136-145) Potassium Level 4.7 MMOL/L (3.5-5.1) Chloride Level 108 MMOL/L (98-107) Carbon Dioxide Level 30 MMOL/L (21-32) Anion Gap 3 mmol/L (5-15) Blood Urea Nitrogen 22 mg/dL (7-18) Creatinine 0.6 MG/DL (0.55-1.30) Estimat Glomerular Filtration Rate > 60 mL/min (>60) Glucose Level 111 MG/DL (74-106) Calcium Level 8.0 MG/DL (8.5-10.1) POC Whole Blood Glucose 125 MG/DL (74-106) 119 MG/DL (74-106) Test 05/10/20 03:15 05/10/20 05:41 White Blood Count 4.8 K/UL (4.8-10.8) Red Blood Count 3.13 M/UL (4.70-6.10) Hemoglobin 9.4 G/DL (14.2-18.0) Hematocrit 29.7 % (42.0-52.0) Mean Corpuscular Volume 95 FL (80-99) Mean Corpuscular Hemoglobin 29.9 PG (27.0-31.0) Mean Corpuscular Hemoglobin Concent 31.5 G/DL (32.0-36.0) Red Cell Distribution Width 13.4 % (11.6-14.8) Platelet Count 248 K/UL (150-450) Mean Platelet Volume 6.2 FL (6.5-10.1) Neutrophils (%) (Auto) 53.1 % (45.0-75.0) Lymphocytes (%) (Auto) 26.3 % (20.0-45.0) Monocytes (%) (Auto) 9.7 % (1.0-10.0) Eosinophils (%) (Auto) 8.8 % (0.0-3.0) Basophils (%) (Auto) 2.1 % (0.0-2.0) Prothrombin Time 12.0 SEC (9.30-11.50) Prothromb Time International Ratio 1.1 (0.9-1.1) Activated Partial Thromboplast Time 30 SEC (23-33) Sodium Level 141 MMOL/L (136-145) Potassium Level 4.4 MMOL/L (3.5-5.1) Chloride Level 108 MMOL/L (98-107) Carbon Dioxide Level 32 MMOL/L (21-32) Anion Gap 1 mmol/L (5-15) Blood Urea Nitrogen 23 mg/dL (7-18) Creatinine 0.5 MG/DL (0.55-1.30) Estimat Glomerular Filtration Rate > 60 mL/min (>60) Glucose Level 106 MG/DL (74-106) Calcium Level 8.0 MG/DL (8.5-10.1) POC Whole Blood Glucose 101 MG/DL (74-106) Height (Feet): 6 Height (Inches): 0.00 Weight (Pounds): 148 Sree Dubon MD May 10, 2020 06:35
--- NOTE | 2020-05-10 07:15 | NUR ---
NURSE NOTES: Received report fromMisti RN. Pt. in bed, awake AO x1 with episode of forgetfulness. Pt. on NC @ 2L O2. Breathing is even and unlabored with no signs of respiratory distress. Pt. on aspiration precaution. No pain or discomfort noted at this time. F/C 16Fr in place, draining well. Urine color yellow. ELI double lumen PICC line in place & patent. Bed in lowest position, locked with side rails x2 up. Call light within reach.
--- NOTE | 2020-05-10 07:24 | NUR ---
NURSE HAND-OFF REPORT: Important Events on Shift:[NGT FEEDING HELD FOR EGD/PEG PLACEMENT] Patient Status: [STABLE] Diet: [GLUCERNA 1.2 AT 50CC] Pending Orders: [] Pending Results/Labs:[] Pending MD notification:[] Latest Vital Signs: Temperature 98.0 , Pulse 75 , B/P 128 /60 , Respiratory Rate 16 , O2 SAT 100 , Nasal Cannula, O2 Flow Rate 2.0 . Vital Sign Comment: [] EKG Rhythm: SR with PJC's Rhythm change?: Y Notified?: N -Dr Devonte SAAVEDRA Response: No New Orders Received Latest Andersen Fall Score: 70 Fall Risk: High Risk Safety Measures: Call light Within Reach, Bed Alarm Zone 2, Side Rails Side Rails x3, Bed position Low and Locked. Fall Precautions: Yellow Socks Yellow Gown Door Sign Patient Fall Education Report given to [CRUZ KAMINSKI].
--- NOTE | 2020-05-10 07:24 | Infectious Diseases Prog Note ---
Assessment/Plan 80yo M with: Fever x1 05/05, again 05/06 Acute BLE DVTs 05/05 BCx NTD CXR: Significantly improved aeration of the left lung compared to one day prior. Residual dense atelectasis/consolidation of the left base. Interval development of some patchy opacities at the right base. Developing pneumonia not excluded. 05/07 CXR: No changes from prior 05/07 BLE US: 1. Acute right DVT involving proximal superficial femoral vein through the popliteal vein. 2. Acute left DVT involving proximal superficial femoral vein through the popliteal vein and calf. 05/07 UA 5-10 WBC, UCx NTD Sepsis UTI -u/a wbc 50-60, nit neg, leuk +1; ucx Neg Gram positive bacteremia- m/l contaminant -04/24 sp cx 1/2 S. epi; 04/26 Bcx NTD Fever; SP No leukocytosis -04/26 influenza screen neg CXR: Borderline cardiomegaly. No acute process -04/24 CXR: No acute cardiopulmonary disease. covid rapid PCR neg Acute hypoxic resp failure- SP NRB>Bipap> VM . BiPAP B/l DVT and PE -CTA chest: Positive for bilateral pulmonary emboli Equivocal evidence of right heart strain; RV /LV ratio around 0.5 but is somewhat difficult to assess due to ventricular muscle hypertrophy. Left basilar compressive atelectasis, pleural fluid, and possibly some consolidation. Trace right pleural fluid. Subtle mosaic perfusion pattern, nonspecific but probably represents very mild pulmonary edema. Cardiomegaly. Nasogastric tube -V. duplex: : On the right, occlusive thrombus is seen within the downstream common femoral vein, the femoral vein, popliteal vein as well as within multiple calf veins. On the left, occlusive thrombus is seen within the femoral vein and popliteal vein the common femoral vein and calf veins are patent. COPD DM2 HTN schizophrenia malnutrition CVA w/ left spastic hemiparesis vascular dementia schizoaffective-bipolar type SNF resident (Everette peterson) Plan: Cont CTX #4 / 5 for possible aspiration pneumonitis given new fevers, although could also be 2/2 acute BLE DVTs 05/01 SP cefepime #8 04/30 SP vanco IV #6 -f/u cx -Monitor CBC/CMP, temperatures -aspiration precautions D/w RN Thank you for consulting [facility]. Will continue to follow along with you. Subjective Allergies: Coded Allergies: No Known Allergies (Unverified , 06/11/17) AF x48hrs WBC 4.8 NAD in bed on 2L NC S/p PEG this morning Objective Last 24 Hour Vital Signs Date Time Temp Pulse Resp B/P (MAP) Pulse Ox O2 Delivery O2 Flow Rate FiO2 05/10/20 04:00 72 05/10/20 04:00 2.0 05/10/20 04:00 98.0 75 16 128/60 (82) 100 05/10/20 00:00 98.6 70 20 129/63 (85) 98 05/10/20 00:00 2.0 05/10/20 00:00 72 05/09/20 21:00 Nasal Cannula 2.0 05/09/20 20:00 69 05/09/20 20:00 98.6 60 16 151/67 (95) 99 05/09/20 20:00 2.0 05/09/20 17:53 66 108/51 05/09/20 16:00 2.0 05/09/20 15:58 66 05/09/20 15:39 97.7 66 20 108/51 (70) 97 05/09/20 12:00 2.0 05/09/20 12:00 97.9 60 20 103/51 (68) 99 05/09/20 11:45 56 05/09/20 09:38 71 115/59 05/09/20 09:00 Nasal Cannula 2.0 05/09/20 08:00 98.2 71 20 115/59 (77) 99 05/09/20 08:00 2.0 05/09/20 07:38 73 Height (Feet): 6 Height (Inches): 0.00 Weight (Pounds): 148 Gen: NAD in bed HEENT: NCAT on NC CV: RRR Pulm: CTAB Abd: Soft, NTND + PEG Ext: No c/c/e Neuro: Sleeping Microbiology Date/Time Source Procedure Growth Status 05/07/20 12:00 Urine,Clean Catch Urine Culture - Final NO GROWTH AFTER 48 HOURS Complete Laboratory Tests Test 05/09/20 12:04 05/09/20 17:58 05/09/20 23:43 05/10/20 03:15 POC Whole Blood Glucose 125 MG/DL (74-106) H Pending 119 MG/DL (74-106) H White Blood Count 4.8 K/UL (4.8-10.8) Red Blood Count 3.13 M/UL (4.70-6.10) L Hemoglobin 9.4 G/DL (14.2-18.0) L Hematocrit 29.7 % (42.0-52.0) L Mean Corpuscular Volume 95 FL (80-99) Mean Corpuscular Hemoglobin 29.9 PG (27.0-31.0) Mean Corpuscular Hemoglobin Concent 31.5 G/DL (32.0-36.0) L Red Cell Distribution Width 13.4 % (11.6-14.8) Platelet Count 248 K/UL (150-450) Mean Platelet Volume 6.2 FL (6.5-10.1) L Neutrophils (%) (Auto) 53.1 % (45.0-75.0) Lymphocytes (%) (Auto) 26.3 % (20.0-45.0) Monocytes (%) (Auto) 9.7 % (1.0-10.0) Eosinophils (%) (Auto) 8.8 % (0.0-3.0) H Basophils (%) (Auto) 2.1 % (0.0-2.0) H Prothrombin Time 12.0 SEC (9.30-11.50) H Prothromb Time International Ratio 1.1 (0.9-1.1) Activated Partial Thromboplast Time 30 SEC (23-33) Sodium Level 141 MMOL/L (136-145) Potassium Level 4.4 MMOL/L (3.5-5.1) Chloride Level 108 MMOL/L (98-107) H Carbon Dioxide Level 32 MMOL/L (21-32) Anion Gap 1 mmol/L (5-15) L Blood Urea Nitrogen 23 mg/dL (7-18) H Creatinine 0.5 MG/DL (0.55-1.30) L Estimat Glomerular Filtration Rate > 60 mL/min (>60) Glucose Level 106 MG/DL (74-106) Calcium Level 8.0 MG/DL (8.5-10.1) L Test 05/10/20 05:41 POC Whole Blood Glucose 101 MG/DL (74-106) Current Medications Medications (Trade) Dose Ordered Sig/Lopez Route PRN Reason Start Time Stop Time Status Last Admin Dose Admin Acetaminophen (Tylenol) 650 mg Q4H PRN NG fever 05/07/20 20:45 06/06/20 20:44 05/07/20 20:58 Apixaban (Eliquis) 5 mg BID NGT 05/08/20 09:00 08/06/20 08:59 05/09/20 17:53 Ceftriaxone Sodium 1 gm/ Dextrose 55 ml @ 110 mls/hr Q24H IVPB 05/07/20 09:00 05/14/20 08:59 05/09/20 09:39 Chlorhexidine Gluconate (Arpita-Hex 2%) 1 applic DAILY@2000 TOPIC 04/29/20 20:00 07/28/20 19:59 05/09/20 21:03 Clonidine HCl (Catapres Tab) 0.1 mg Q8H PRN GT For High Blood Pressure 05/05/20 16:45 08/03/20 16:44 Dextrose (Dextrose 50%) 25 ml Q30M PRN IV Hypoglycemia 04/25/20 00:00 07/24/20 00:00 Dextrose (Dextrose 50%) 50 ml Q30M PRN IV Hypoglycemia 04/25/20 00:00 07/24/20 00:00 Folic Acid (Folate) 1 mg DAILY NG 05/08/20 09:00 06/07/20 08:59 05/09/20 09:39 Insulin Aspart (NovoLOG) EVERY 6 HOURS SUBQ 05/08/20 06:00 07/24/20 18:00 Lamotrigine (LaMICtal) 25 mg DAILY NG 05/08/20 09:00 06/07/20 08:59 05/09/20 09:38 Memantine (Namenda) 5 mg TWICE A DAY NG 05/08/20 09:00 06/07/20 08:59 05/09/20 17:53 Metoprolol Tartrate (Lopressor) 50 mg BID GT 05/01/20 20:00 07/30/20 19:59 05/09/20 17:53 Olanzapine (ZyPREXA) 5 mg DAILY NG 05/08/20 09:00 06/22/20 08:59 05/09/20 09:39 Ondansetron HCl (Zofran) 4 mg Q6H PRN IVP Nausea & Vomiting 04/25/20 00:00 05/25/20 00:00 Polyethylene Glycol (Miralax) 17 gm DAILYPRN PRN NG Constipation 05/07/20 20:45 06/06/20 20:44 Quetiapine Fumarate (SEROqueL) 50 mg Q12HR NG 05/07/20 21:00 06/21/20 20:59 05/09/20 21:03 Raina Loving M.D. May 10, 2020 07:24
[2020-05-10] MEDS ORDERED: NS 500ML IVPB ONE (07:55)
[2020-05-10] MEDS ORDERED: Lidocaine 1% MPF 10mg/ml 5ml ONE (08:00)
--- NOTE | 2020-05-10 08:20 | Endoscopy Procedure Note ---
Endoscopy Procedure Note General Indication for Procedure: dysphgaia Procedures Performed: EGD, PEG Operative Findings/Diagnosis: same Specimen: none Pt Tolerated Procedure Well: Yes Estimated Blood Loss: none Anesthesia Anesthesiologist: frank Anesthesia: MAC Inserted Devices Implant(s) used?: No GI Core Measures 50 yrs or older w/o bx or poly: Not Applicable 10yrs. F/U recommended: Not Applicable Nathan Short MD May 10, 2020 08:20
--- NOTE | 2020-05-10 08:45 | Procedure Note ---
DATE OF PROCEDURE: 05/10/2020 SURGEON: Nathan Short MD. REFERRING PHYSICIAN: German Carlin DO. PROCEDURE: Upper endoscopy with PEG placement. ANESTHESIA: Per Dr. Alanis. INSTRUMENT: Olympus adult flexible upper endoscope. INDICATION: Dysphagia. REASON FOR PROCEDURE: The procedure, risks, benefits, and possible consequences, including hemorrhage, aspiration, perforation and infection, and alternative treatments, were explained to the patient/legal guardian by Dr. Nathan Short and the patient/legal guardian understood and accepted these risks. PROCEDURE IN DETAIL: After informed consent was obtained and the patient was adequately sedated, Olympus upper endoscope was advanced from mouth into the second portion of the duodenum and retroflexion was performed in the stomach. The patient has evidence of diffuse gastritis. Then, under endoscopic guidance and under sterile condition, a 20-Macedonian pull type of G-tube was successfully placed in epigastric area. The distance from the tip of the tube to skin was about 2.5 cm in size. The patient tolerated the procedure very well without any complications. SUMMARY OF FINDINGS: Status post successful PEG placement. RECOMMENDATIONS: 1. Abdominal binder. 2. Elevate the head of the bed at all times. 3. G-tube flush, G-tube care. 4. Start tube feeding later today. 5. The patient is currently on antibiotics, we will continue. I want to thank Dr. German Carlin for this kind referral. Nathan Short M.D. DR: EVAN JOB#: [id number] CC:
[2020-05-10] MEDS ORDERED: fentaNYL 100 mcg/2 mL IV PRN (09:00)
[2020-05-10] MEDS ORDERED: Atropine Inj 1mg/10ml Syr IVP PRN (09:00)
[2020-05-10] MEDS ORDERED: DiphenhydrAMINE 50mg/ml Inj IVP PRN (09:00)
[2020-05-10] MEDS ORDERED: Midazolam 2mg/2ml Inj IVP PRN (09:00)
--- NOTE | 2020-05-10 09:01 | NUR ---
RD ASSESSMENT & RECOMMENDATIONS SEE CARE ACTIVITY FOR COMPLETE ASSESSMENT DAILY ESTIMATED NEEDS: Needs based on DM, Cardiac (67.3kg) 25-35 kcals/kg 8163-4121 total kcals 1.25-1.5 g protein/kg 84-101 g total protein 25-30 mL/kg 5788-4324 total fluid mLs NUTRITION DIAGNOSIS: Difficulty chewing/swallowing r/t dysphagia s/p CVA, respiratory status as evidenced by pt NPO, now on NGT feeds, off BIPAP, on NC. ENTERAL NUTRITION RECOMMENDATIONS: Glucerna 1.5 @ 50ml/hr x24 hrs to provide 1200ml, 1800 kcal, 99g pro, 911ml free H2o - Increase goal rate of 50ml/hr as tolerated to meet 100% est needs. - Flush per , HOB over 30 degrees. ADDITIONAL RECOMMENDATIONS: 1) RE-calibrate bed scale post floor txr for accurate weights 2) Skin integrity: Add LLOYD BID + Vit C 250mg qdaily 3) Replete lytes as needed 4) F/up w/ PACKING ROOM INSPECTOR eval- now s/p PEG 5) Monitor respiratory status: now off BIPAP, on NC .
--- NOTE | 2020-05-10 09:03 | Anethesia Preoperative Eval ---
Anesthesia Pre-op PMH/ROS General Date of Evaluation: May 10, 2020 Time of Evaluation: 07:47 Anesthesiologist: kishore ASA Score: ASA 4 Mallampati Score Class I : Soft palate, uvula, fauces, pillars visible Class II: Soft palate, uvula, fauces visible Class III: Soft palate, base of uvula visible Class IV: Only hard plate visible Mallampati Classification: Class II Surgeon: adriane Diagnosis: dysphagia, malnutrition Surgical Procedure: egd/peg Anesthesia History: none Social History: smoking - nonsmoker Family History: no anesthesia problems Allergies: Coded Allergies: No Known Allergies (Unverified , 06/11/17) Medications: see eMAR Patient NPO?: Yes Past Medical History Cardiovascular: Reports: HTN, other - hypercholesterolemia Pulmonary: Reports: COPD Gastrointestinal/Genitourinary: Reports: ESRD - on dialysis Neurologic/Psychiatric: Reports: depression/anxiety, other - seizures, schizoaffective disorder Endocrine: Reports: DM Hematology/Immune: Reports: anemia, DVT Anesthesia Pre-op Phys. Exam Physician Exam Last Vital Signs Date Time Temp Pulse Resp B/P (MAP) Pulse Ox O2 Delivery O2 Flow Rate FiO2 05/10/20 08:00 97.7 64 18 116/61 (79) 95 05/10/20 08:00 2.0 05/09/20 21:00 Nasal Cannula 05/09/20 07:00 28 Constitutional: NAD Neurologic: other - left sided weakness Cardiovascular: RRR Respiratory: CTA Gastrointestinal: S/NT/ND Airway Exam Mallampati Score: Class II MO: limited Neck: flexible TMD: 2fb ROM: limited Teeth: missing Anesthesia Pre-op A/P Labs Microbiology Date/Time Source Procedure Growth Status 05/07/20 12:00 Urine,Clean Catch Urine Culture - Final NO GROWTH AFTER 48 HOURS Complete 05/05/20 09:37 Blood Blood Culture - Preliminary NO GROWTH AFTER 4 DAYS Resulted 04/26/20 06:00 Nasopharynx - Final Complete 04/26/20 06:00 Nasopharynx - Final Complete 04/24/20 20:00 Rectum - Final NO CARBAPENEM-RESISTANT ENTEROBACTERI... Complete Hematology Test 05/10/20 03:15 White Blood Count 4.8 K/UL (4.8-10.8) Red Blood Count 3.13 M/UL (4.70-6.10) L Hemoglobin 9.4 G/DL (14.2-18.0) L Hematocrit 29.7 % (42.0-52.0) L Mean Corpuscular Volume 95 FL (80-99) Mean Corpuscular Hemoglobin 29.9 PG (27.0-31.0) Mean Corpuscular Hemoglobin Concent 31.5 G/DL (32.0-36.0) L Red Cell Distribution Width 13.4 % (11.6-14.8) Platelet Count 248 K/UL (150-450) Mean Platelet Volume 6.2 FL (6.5-10.1) L Neutrophils (%) (Auto) 53.1 % (45.0-75.0) Lymphocytes (%) (Auto) 26.3 % (20.0-45.0) Monocytes (%) (Auto) 9.7 % (1.0-10.0) Eosinophils (%) (Auto) 8.8 % (0.0-3.0) H Basophils (%) (Auto) 2.1 % (0.0-2.0) H Coagulation Test 05/10/20 03:15 Prothrombin Time 12.0 SEC (9.30-11.50) H Prothromb Time International Ratio 1.1 (0.9-1.1) Activated Partial Thromboplast Time 30 SEC (23-33) Chemistry Test 05/09/20 12:04 05/09/20 17:58 05/09/20 23:43 05/10/20 03:15 POC Whole Blood Glucose 125 MG/DL (74-106) H Pending 119 MG/DL (74-106) H Sodium Level 141 MMOL/L (136-145) Potassium Level 4.4 MMOL/L (3.5-5.1) Chloride Level 108 MMOL/L (98-107) H Carbon Dioxide Level 32 MMOL/L (21-32) Anion Gap 1 mmol/L (5-15) L Blood Urea Nitrogen 23 mg/dL (7-18) H Creatinine 0.5 MG/DL (0.55-1.30) L Estimat Glomerular Filtration Rate > 60 mL/min (>60) Glucose Level 106 MG/DL (74-106) Calcium Level 8.0 MG/DL (8.5-10.1) L Test 05/10/20 05:41 POC Whole Blood Glucose 101 MG/DL (74-106) Risk Assessment & Plan Assessment: [email or web address] Plan: mac Status Change Before Surgery: No Pre-Antibiotics Drug: Ginger Hodges MD May 10, 2020 09:03
--- NOTE | 2020-05-10 09:05 | Immediate Post-Op Evaluation ---
Immediate Post-Op Evalulation Immediate Post-Op Evalulation Procedure: egd/peg w/bx Date of Evaluation: May 10, 2020 Time of Evaluation: 08:37 Ginger Sharp MD May 10, 2020 09:05
--- NOTE | 2020-05-10 09:09 | 48 Hour Post Anesthesia Eval ---
Post Anesthesia Evaluation Procedure: egd/peg Date of Evaluation: May 10, 2020 Time of Evaluation: 08:39 Blood Pressure Systolic: 130 0: 71 Pulse Rate: 84 Respiratory Rate: 18 Temperature (Fahrenheit): 98.7 O2 Sat by Pulse Oximetry: 100 Airway: patent Nausea: No Vomiting: No Pain Intensity: 0 Hydration Status: adequate Cardiopulmonary Status: stable Mental Status/LOC: patient returned to baseline Post-Anesthesia Complications: none Follow-up care needed: N/A Ginger Sharp MD May 10, 2020 09:09
--- NOTE | 2020-05-10 09:31 | Psychiatry Consultation ---
Psychiatry Consultation Psychiatry Consultation Chief Complaint: Dyspnea/Respdistress History of Present Illness: 80yo male who continues to have confusion and disorganized thoughts process. He has mood lability worsened by the progression of his medical illness Allergies: Coded Allergies: No Known Allergies (Unverified , 06/11/17) Medication History Scheduled Amino Acids/Protein Hydrolys (Pro-Stat Liquid), 30 ML ORAL DAILY, (Reported) Aspirin (Aspirin EC), 81 MG ORAL DAILY, (Reported) Docusate Sodium* (Colace*), 100 MG ORAL DAILY, (Reported) Folic Acid* (Folic Acid*), 1 MG ORAL DAILY, (Reported) Heparin Sod (Porcine) (Heparin Sodium*), 5,000 UNITS SUBQ DAILY, (Reported) Lamotrigine* (Lamictal*), 25 MG ORAL DAILY, (Reported) Lisinopril (Lisinopril*), 20 MG ORAL BID, (Reported) Memantine Hcl* (Namenda*), 5 MG ORAL TWICE A DAY, (Reported) Multivitamin With Minerals (Multivitamins With Minerals*), 1 TAB ORAL DAILY, (Reported) Olanzapine* (Zyprexa*), 5 MG ORAL DAILY, (Reported) Sennosides (Senna), 2 TAB PO BEDTIME, (Reported) Scheduled PRN Acetaminophen* (Acetaminophen 325MG Tablet*), 650 MG ORAL Q4H PRN for Fever/Headache/Mild Pain, (Reported) Bisacodyl (Dulcolax), 10 MG RC for Constipation, (Reported) Hydralazine Hcl* (Hydralazine Hcl*), 10 MG ORAL Q4HR PRN for SBP > 160 , (Reported) Ipratropium/Albuterol Sulfate (DuoNeb 0.5-3(2.5)mg/3ml), 1 UNIT HHN EVERY 6 HOURS PRN for Shortness of Breath, (Reported) Magnesium Hydroxide* (Milk Of Magnesia*), 30 ML ORAL EVERY 6 HOURS PRN for Constipation, (Reported) Na Phos,M-B/Na Phos,Di-Ba* (Fleet Enema*), 133 ML RECTAL DAILY PRN for Constipation, (Reported) Nitroglycerin 0.4MG table* (Nitroglycerin*), 0.4 MG SL .Q5MIN X 3 DOSES PRN for CHEST PAIN, (Reported) Miscellaneous Medications Insulin Lispro (Humalog), 0 SUBQ, (Reported) Objective Data Height (Feet): 6 Height (Inches): 0.00 Weight (Pounds): 148 Appearance: disheveled Behavior Mannerisms: poor eye contact Affect: labile Mood: depressed Speech: dysarthric Thought Process: disorganized Thought Content: paranoia Perceptual Disturbances: auditory Suicidal Ideation: no plan Assessment/Plan Assessment/Plan: Continue the patient on Lamictal, Zyprexa, Ativan and Namenda. 20min of insight oriented psychotherapy to help him recognize his psychical and cogintive deficits so that he has less depression and better impulse control. Diagnosis [place] I: Schizoaffective Bipolar type Dakota Monroe MD May 10, 2020 09:31
[2020-05-10] MEDS: cefTRIAXone 1 GM in D5W 55 ML IVPB SCH (10:00)
--- NOTE | 2020-05-10 10:34 | Pulmonology Progress Note ---
Subjective ROS Limited/Unobtainable: Yes Constitutional: Reports: no symptoms HEENT: Repors: no symptoms Allergies: Coded Allergies: No Known Allergies (Unverified , 06/11/17) All Systems: reviewed and negative except above Objective Last 24 Hour Vital Signs Date Time Temp Pulse Resp B/P (MAP) Pulse Ox O2 Delivery O2 Flow Rate FiO2 05/10/20 09:00 Nasal Cannula 2.0 05/10/20 08:50 85 17 142/66 96 Nasal Cannula 2 05/10/20 08:40 84 18 130/71 95 Nasal Cannula 2 05/10/20 08:30 83 22 127/68 94 Nasal Cannula 2 05/10/20 08:25 98.7 80 20 138/71 95 Nasal Cannula 2 05/10/20 08:00 79 05/10/20 08:00 97.7 64 18 116/61 (79) 95 05/10/20 08:00 2.0 05/10/20 04:00 72 05/10/20 04:00 2.0 05/10/20 04:00 98.0 75 16 128/60 (82) 100 05/10/20 00:00 98.6 70 20 129/63 (85) 98 05/10/20 00:00 2.0 05/10/20 00:00 72 05/09/20 21:00 Nasal Cannula 2.0 05/09/20 20:00 69 05/09/20 20:00 98.6 60 16 151/67 (95) 99 05/09/20 20:00 2.0 05/09/20 17:53 66 108/51 05/09/20 16:00 2.0 05/09/20 15:58 66 05/09/20 15:39 97.7 66 20 108/51 (70) 97 05/09/20 12:00 2.0 05/09/20 12:00 97.9 60 20 103/51 (68) 99 05/09/20 11:45 56 Intake and Output 05/09/20 05/10/20 19:00 07:00 Intake Total 755 ml 200 ml Output Total 800 ml 800 ml Balance -45 ml -600 ml Free Water 150 ml IV Total 55 ml Tube Feeding 550 ml 200 ml Output Urine Total 800 ml 800 ml # Voids 1 # Bowel Movements 1 2 General Appearance: cachetic HEENT: normocephalic, atraumatic Respiratory: chest wall non-tender Abdomen: normal bowel sounds, soft, non tender, no organomegaly Extremities: no cyanosis, no clubbing Microbiology Date/Time Source Procedure Growth Status 05/07/20 12:00 Urine,Clean Catch Urine Culture - Final NO GROWTH AFTER 48 HOURS Complete Laboratory Tests 05/09/20 12:04: POC Whole Blood Glucose 125H 05/09/20 17:58: POC Whole Blood Glucose [Pending] 05/09/20 23:43: POC Whole Blood Glucose 119H 05/10/20 03:15: White Blood Count 4.8, Red Blood Count 3.13L, Hemoglobin 9.4L, Hematocrit 29.7L, Mean Corpuscular Volume 95, Mean Corpuscular Hemoglobin 29.9, Mean Corpuscular Hemoglobin Concent 31.5L, Red Cell Distribution Width 13.4, Platelet Count 248, Mean Platelet Volume 6.2L, Neutrophils (%) (Auto) 53.1, Lymphocytes (%) (Auto) 26.3, Monocytes (%) (Auto) 9.7, Eosinophils (%) (Auto) 8.8H, Basophils (%) (Auto) 2.1H, Prothrombin Time 12.0H, Prothromb Time International Ratio 1.1, Activated Partial Thromboplast Time 30, Sodium Level 141, Potassium Level 4.4, Chloride Level 108H, Carbon Dioxide Level 32, Anion Gap 1L, Blood Urea Nitrogen 23H, Creatinine 0.5L, Estimat Glomerular Filtration Rate > 60, Glucose Level 106, Calcium Level 8.0L 05/10/20 05:41: POC Whole Blood Glucose 101 Current Medications Medications (Trade) Dose Ordered Sig/Lopez Route PRN Reason Start Time Stop Time Status Last Admin Dose Admin Acetaminophen (Tylenol) 650 mg Q4H PRN NG fever 05/07/20 20:45 06/06/20 20:44 05/07/20 20:58 Apixaban (Eliquis) 5 mg BID NGT 05/08/20 09:00 08/06/20 08:59 05/09/20 17:53 Ceftriaxone Sodium 1 gm/ Dextrose 55 ml @ 110 mls/hr Q24H IVPB 05/07/20 09:00 05/14/20 08:59 05/09/20 09:39 Chlorhexidine Gluconate (Arpita-Hex 2%) 1 applic DAILY@2000 TOPIC 04/29/20 20:00 07/28/20 19:59 05/09/20 21:03 Clonidine HCl (Catapres Tab) 0.1 mg Q8H PRN GT For High Blood Pressure 05/05/20 16:45 08/03/20 16:44 Dextrose (Dextrose 50%) 25 ml Q30M PRN IV Hypoglycemia 04/25/20 00:00 07/24/20 00:00 Dextrose (Dextrose 50%) 50 ml Q30M PRN IV Hypoglycemia 04/25/20 00:00 07/24/20 00:00 Folic Acid (Folate) 1 mg DAILY NG 05/08/20 09:00 06/07/20 08:59 05/09/20 09:39 Insulin Aspart (NovoLOG) EVERY 6 HOURS SUBQ 05/08/20 06:00 07/24/20 18:00 Lamotrigine (LaMICtal) 25 mg DAILY NG 05/08/20 09:00 06/07/20 08:59 05/09/20 09:38 Memantine (Namenda) 5 mg TWICE A DAY NG 05/08/20 09:00 06/07/20 08:59 05/09/20 17:53 Metoprolol Tartrate (Lopressor) 50 mg BID GT 05/01/20 20:00 07/30/20 19:59 05/09/20 17:53 Olanzapine (ZyPREXA) 5 mg DAILY NG 05/08/20 09:00 06/22/20 08:59 05/09/20 09:39 Ondansetron HCl (Zofran) 4 mg Q6H PRN IVP Nausea & Vomiting 04/25/20 00:00 05/25/20 00:00 Polyethylene Glycol (Miralax) 17 gm DAILYPRN PRN NG Constipation 05/07/20 20:45 06/06/20 20:44 Quetiapine Fumarate (SEROqueL) 50 mg Q12HR NG 05/07/20 21:00 06/21/20 20:59 05/09/20 21:03 Assessment/Plan Problems: (1) Acute encephalopathy (2) Acute massive pulmonary embolism (3) Acute deep vein thrombosis (DVT) (4) Lung collapse (5) Sepsis (6) ATN (acute tubular necrosis) (7) Diabetes (8) HTN (hypertension) (9) CVA (cerebral vascular accident) (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
[2020-05-10] MEDS: Metoprolol Tartrate 50mg tab GT SCH ×2 (11:49→17:34)
[2020-05-10] MEDS: Memantine 10mg tab NG SCH ×2 (11:49→17:34)
[2020-05-10] MEDS: Eliquis 5mg tablet NGT SCH ×2 (11:49→17:34)
--- NOTE | 2020-05-10 11:54 | Nephrology Progress Note ---
Assessment/Plan Problem List: (1) KORY (acute kidney injury) (2) Hypernatremia (3) Dehydration (4) Acute respiratory failure Assessment Patient presents with acute hypoxic respiratory failure requiring BiPAP Sepsis lactic acidosis KORY Dehydration, hypernatremia History of COPD Anemia Low BMI, malnutrition. BMI of 20.1 History of CVA History of diabetes mellitus Plan May 10: Labs reviewed. Status quo. On nasal cannula. Renal parameters stable. Continue per consultants. May 09: Labs reviewed. Renal parameters stable. Continue per consultants. May 08: Labs reviewed. Renal parameters stable. Continue per current management. May 07: Labs reviewed. Renal parameters stable. Continue per current treatment plan. May 06: Labs reviewed. Renal parameters stable. Continue per consultants. Remains full code. May 05: Labs reviewed. Renal parameters stable. Continue current management. Remains on Venturi mask. Remains full code. Calcium supplement discontinued May 04: Labs reviewed. Renal parameters are stable. Continue per current management. May 03: Labs reviewed. Renal parameters stable. Phosphorus supplement IV given. May 02: Serum sodium up to 144. Stable from renal standpoint of view. Continue per consultants. May 01: Serum serum sodium 136. Will stop D5W IV fluid. 1 dose of Lasix IV. Potassium supplement. Continue to monitor electrolytes. Continue per consultants. April 30: Serum sodium 146. Low phosphorus replaced. Continue pulmonary support and per consultants. April 29: Serum sodium normalized. Electrolytes within normal limit. Remains on nonrebreather mask. Continue per consultants. April 28: Continue D5W. Abnormal electrolytes addressed. Continue per consultants. Remains full code. Remains on nonrebreather mask. April 27: Continue D5W. Continue pulmonary support. Monitor renal parameters and electrolytes. Continue per consultants. Patient full code. Remains on nonrebreathing mask. Contreras catheter IV D5W Monitor electrolytes and renal parameters Antibiotics Avoid nephrotoxic's 2D echocardiogram Per orders Subjective ROS Limited/Unobtainable: No Constitutional: Reports: malaise Objective Objective Last 24 Hour Vital Signs Date Time Temp Pulse Resp B/P (MAP) Pulse Ox O2 Delivery O2 Flow Rate FiO2 05/10/20 11:49 85 142/66 05/10/20 09:00 Nasal Cannula 2.0 05/10/20 08:50 85 17 142/66 96 Nasal Cannula 2 05/10/20 08:40 84 18 130/71 95 Nasal Cannula 2 05/10/20 08:30 83 22 127/68 94 Nasal Cannula 2 05/10/20 08:25 98.7 80 20 138/71 95 Nasal Cannula 2 05/10/20 08:00 79 05/10/20 08:00 97.7 64 18 116/61 (79) 95 05/10/20 08:00 2.0 05/10/20 04:00 72 05/10/20 04:00 2.0 05/10/20 04:00 98.0 75 16 128/60 (82) 100 05/10/20 00:00 98.6 70 20 129/63 (85) 98 05/10/20 00:00 2.0 05/10/20 00:00 72 05/09/20 21:00 Nasal Cannula 2.0 05/09/20 20:00 69 05/09/20 20:00 98.6 60 16 151/67 (95) 99 05/09/20 20:00 2.0 05/09/20 17:53 66 108/51 05/09/20 16:00 2.0 05/09/20 15:58 66 05/09/20 15:39 97.7 66 20 108/51 (70) 97 05/09/20 12:00 2.0 05/09/20 12:00 97.9 60 20 103/51 (68) 99 Intake and Output 05/09/20 05/10/20 19:00 07:00 Intake Total 755 ml 200 ml Output Total 800 ml 800 ml Balance -45 ml -600 ml Free Water 150 ml IV Total 55 ml Tube Feeding 550 ml 200 ml Output Urine Total 800 ml 800 ml # Voids 1 # Bowel Movements 1 2 Current Medications Medications (Trade) Dose Ordered Sig/Lopez Route PRN Reason Start Time Stop Time Status Last Admin Dose Admin Acetaminophen (Tylenol) 650 mg Q4H PRN NG fever 05/07/20 20:45 06/06/20 20:44 05/07/20 20:58 Apixaban (Eliquis) 5 mg BID NGT 05/08/20 09:00 08/06/20 08:59 05/10/20 11:49 Ceftriaxone Sodium 1 gm/ Dextrose 55 ml @ 110 mls/hr Q24H IVPB 05/07/20 09:00 05/14/20 08:59 05/10/20 10:00 Chlorhexidine Gluconate (Arpita-Hex 2%) 1 applic DAILY@2000 TOPIC 04/29/20 20:00 07/28/20 19:59 05/09/20 21:03 Clonidine HCl (Catapres Tab) 0.1 mg Q8H PRN GT For High Blood Pressure 05/05/20 16:45 08/03/20 16:44 Dextrose (Dextrose 50%) 25 ml Q30M PRN IV Hypoglycemia 04/25/20 00:00 07/24/20 00:00 Dextrose (Dextrose 50%) 50 ml Q30M PRN IV Hypoglycemia 04/25/20 00:00 07/24/20 00:00 Folic Acid (Folate) 1 mg DAILY NG 05/08/20 09:00 06/07/20 08:59 05/10/20 11:49 Insulin Aspart (NovoLOG) EVERY 6 HOURS SUBQ 05/08/20 06:00 07/24/20 18:00 Lamotrigine (LaMICtal) 25 mg DAILY NG 05/08/20 09:00 06/07/20 08:59 05/10/20 11:49 Memantine (Namenda) 5 mg TWICE A DAY NG 05/08/20 09:00 06/07/20 08:59 05/10/20 11:49 Metoprolol Tartrate (Lopressor) 50 mg BID GT 05/01/20 20:00 07/30/20 19:59 05/10/20 11:49 Olanzapine (ZyPREXA) 5 mg DAILY NG 05/08/20 09:00 06/22/20 08:59 05/10/20 11:48 Ondansetron HCl (Zofran) 4 mg Q6H PRN IVP Nausea & Vomiting 04/25/20 00:00 05/25/20 00:00 Polyethylene Glycol (Miralax) 17 gm DAILYPRN PRN NG Constipation 05/07/20 20:45 06/06/20 20:44 Quetiapine Fumarate (SEROqueL) 50 mg Q12HR NG 05/07/20 21:00 06/21/20 20:59 05/10/20 11:49 Laboratory Tests 05/09/20 12:04: POC Whole Blood Glucose 125H 05/09/20 17:58: POC Whole Blood Glucose [Pending] 05/09/20 23:43: POC Whole Blood Glucose 119H 05/10/20 03:15: White Blood Count 4.8, Red Blood Count 3.13L, Hemoglobin 9.4L, Hematocrit 29.7L, Mean Corpuscular Volume 95, Mean Corpuscular Hemoglobin 29.9, Mean Corpuscular Hemoglobin Concent 31.5L, Red Cell Distribution Width 13.4, Platelet Count 248, Mean Platelet Volume 6.2L, Neutrophils (%) (Auto) 53.1, Lymphocytes (%) (Auto) 26.3, Monocytes (%) (Auto) 9.7, Eosinophils (%) (Auto) 8.8H, Basophils (%) (Auto) 2.1H, Prothrombin Time 12.0H, Prothromb Time International Ratio 1.1, Activated Partial Thromboplast Time 30, Sodium Level 141, Potassium Level 4.4, Chloride Level 108H, Carbon Dioxide Level 32, Anion Gap 1L, Blood Urea Nitrogen 23H, Creatinine 0.5L, Estimat Glomerular Filtration Rate > 60, Glucose Level 106, Calcium Level 8.0L 05/10/20 05:41: POC Whole Blood Glucose 101 Height (Feet): 6 Height (Inches): 0.00 Weight (Pounds): 148 General Appearance: no apparent distress EENT: other - On nasal cannula Cardiovascular: normal rate - Rate 85 Respiratory/Chest: decreased breath sounds Abdomen: distended Maximino Castillo MD May 10, 2020 11:54
--- NOTE | 2020-05-10 11:56 | NUR ---
RADIOLOGY DEPT., CHEST X-RAY DONE.-P.DYE
--- NOTE | 2020-05-10 13:32 | Immediate Post-Op Evaluation ---
Immediate Post-Op Evalulation Immediate Post-Op Evalulation Procedure: egd/peg Date of Evaluation: May 10, 2020 Time of Evaluation: 08:37 IV Fluids: 100ml 0.9ns Blood Products: none Estimated Blood Loss: negligible Blood Pressure Systolic: 138 Blood Pressure Diastolic: 71 Pulse Rate: 85 Respiratory Rate: 18 O2 Sat by Pulse Oximetry: 100 Temperature (Fahrenheit): 98.7 Pain Score (1-10): 0 Nausea: No Vomiting: No Complications none Patient Status: awake, reacts, patent Hydration Status: adequate Drug: Ginger Hodges MD May 10, 2020 13:32
--- NOTE | 2020-05-10 14:20 | NUR ---
CASE MANAGEMENT:REVIEW 05/10/20 SI: ACUTE RESPIRATORY FAILURE SEPSIS. DYSPHAGIA 99.7 86 18 130/73 98% ON 2L/NC BUN+23 IS: IV ROCEPHIN Q24 LOPRESSOR GT BID ELIQUIS GT BID FOLATE GT ZYPREXA GT QD : TELEMETRY STATUS DCP: FROM [facility] PLAN: EGD/PEG PLACEMENT TODAY
--- NOTE | 2020-05-10 16:34 | General Progress Note ---
Subjective ROS Limited/Unobtainable: Yes Allergies: Coded Allergies: No Known Allergies (Unverified , 06/11/17) Objective Last 24 Hour Vital Signs Date Time Temp Pulse Resp B/P (MAP) Pulse Ox O2 Delivery O2 Flow Rate FiO2 05/10/20 16:00 100.0 20 119/69 (86) 99 05/10/20 16:00 2.0 05/10/20 13:35 84 18 100 05/10/20 13:32 85 18 100 05/10/20 12:00 99.7 18 130/73 (92) 98 05/10/20 12:00 86 05/10/20 12:00 2.0 05/10/20 11:49 85 142/66 05/10/20 09:00 Nasal Cannula 2.0 05/10/20 08:50 85 17 142/66 96 Nasal Cannula 2 05/10/20 08:40 84 18 130/71 95 Nasal Cannula 2 05/10/20 08:30 83 22 127/68 94 Nasal Cannula 2 05/10/20 08:25 98.7 80 20 138/71 95 Nasal Cannula 2 05/10/20 08:00 79 05/10/20 08:00 97.7 64 18 116/61 (79) 95 05/10/20 08:00 2.0 05/10/20 07:00 96 Nasal Cannula 2.0 28 05/10/20 04:00 72 05/10/20 04:00 2.0 05/10/20 04:00 98.0 75 16 128/60 (82) 100 05/10/20 00:00 98.6 70 20 129/63 (85) 98 05/10/20 00:00 2.0 05/10/20 00:00 72 05/09/20 21:00 Nasal Cannula 2.0 05/09/20 20:00 69 05/09/20 20:00 98.6 60 16 151/67 (95) 99 05/09/20 20:00 2.0 05/09/20 17:53 66 108/51 Intake and Output 05/09/20 05/10/20 19:00 07:00 Intake Total 755 ml 200 ml Output Total 800 ml 800 ml Balance -45 ml -600 ml Free Water 150 ml IV Total 55 ml Tube Feeding 550 ml 200 ml Output Urine Total 800 ml 800 ml # Voids 1 # Bowel Movements 1 2 Laboratory Tests 05/09/20 17:58: POC Whole Blood Glucose [Pending] 05/09/20 23:43: POC Whole Blood Glucose 119H 05/10/20 03:15: White Blood Count 4.8, Red Blood Count 3.13L, Hemoglobin 9.4L, Hematocrit 29.7L, Mean Corpuscular Volume 95, Mean Corpuscular Hemoglobin 29.9, Mean Corpuscular Hemoglobin Concent 31.5L, Red Cell Distribution Width 13.4, Platelet Count 248, Mean Platelet Volume 6.2L, Neutrophils (%) (Auto) 53.1, Lymphocytes (%) (Auto) 26.3, Monocytes (%) (Auto) 9.7, Eosinophils (%) (Auto) 8.8H, Basophils (%) (Auto) 2.1H, Prothrombin Time 12.0H, Prothromb Time International Ratio 1.1, Activated Partial Thromboplast Time 30, Sodium Level 141, Potassium Level 4.4, Chloride Level 108H, Carbon Dioxide Level 32, Anion Gap 1L, Blood Urea Nitrogen 23H, Creatinine 0.5L, Estimat Glomerular Filtration Rate > 60, Glucose Level 106, Calcium Level 8.0L 05/10/20 05:41: POC Whole Blood Glucose 101 Height (Feet): 6 Height (Inches): 0.00 Weight (Pounds): 148 Assessment/Plan Problem List: (1) Sepsis ICD Codes: A41.9 - Sepsis, unspecified organism SNOMED: 27982399 (2) Dehydration ICD Codes: E86.0 - Dehydration SNOMED: 10239137 (3) Hypernatremia ICD Codes: E87.0 - Hyperosmolality and hypernatremia SNOMED: 89515096 (4) Diabetes ICD Codes: E11.9 - Type 2 diabetes mellitus without complications SNOMED: 31133198 (5) UTI (urinary tract infection) ICD Codes: N39.0 - Urinary tract infection, site not specified SNOMED: 84861283 (6) HTN (hypertension) ICD Codes: I10 - Essential (primary) hypertension SNOMED: 60780248 (7) CVA (cerebral vascular accident) ICD Codes: I63.9 - Cerebral infarction, unspecified SNOMED: 911371892 (8) KORY (acute kidney injury) ICD Codes: N17.9 - Acute kidney failure, unspecified SNOMED: 3553503, 63584907 Status: progressing, unchanged Assessment/Plan: uti improving resp insuff vitals stable no acute events abx per id Kaylen Hicks MD May 10, 2020 16:34
--- NOTE | 2020-05-10 18:01 | Diagnostic Imaging Report ---
Indication: Shortness of breath Technique: One view of the chest Comparison: 05/05/2020 Findings: Right arm PICC is again demonstrated. There is persistent retrocardiac consolidation and likely pleural fluid on the left. The remainder the lungs and pleural spaces are clear. Previously demonstrated nasogastric tube is been removed Impression: Interim nasogastric tube removal. Otherwise little change since prior study of 5 days earlier
--- NOTE | 2020-05-10 19:45 | NUR ---
NURSE NOTES: : Report given to [].The patient is awake and does not seem to be in any distress at this time. He is on 2 liters of oxygen via NC well tolerated. The patient keeps a Right upper arm picc line that is intact and asymptomatic.The bed in low level and call light within easy reach. Bed alarm is on and siderails up x2. will continue to monitor as indicated.
[2020-05-10] MEDS: Dyna-Hex 2% Top Sol 2oz TOPIC SCH (21:01)
[2020-05-11] VITALS: BP 127/64
[2020-05-11 04:00] VITALS: BP 127/74
[2020-05-11] MEDS: NovoLOG Insulin Flexpen SUBQ SCH ×3 (06:00→12:00)
--- NOTE | 2020-05-11 06:11 | General Progress Note ---
Subjective ROS Limited/Unobtainable: No Allergies: Coded Allergies: No Known Allergies (Unverified , 06/11/17) Objective Last 24 Hour Vital Signs Date Time Temp Pulse Resp B/P (MAP) Pulse Ox O2 Delivery O2 Flow Rate FiO2 05/11/20 04:00 97.9 62 19 127/74 (91) 98 05/11/20 04:00 62 05/11/20 04:00 2.0 05/11/20 00:00 2.0 05/11/20 00:00 98.6 20 127/64 (85) 98 05/11/20 00:00 64 05/10/20 21:00 Nasal Cannula 2.0 05/10/20 20:14 96 Nasal Cannula 2.0 28 05/10/20 20:00 99.1 19 135/71 (92) 96 05/10/20 20:00 69 05/10/20 20:00 2.0 05/10/20 17:34 84 119/69 05/10/20 16:00 100.0 20 119/69 (86) 99 05/10/20 16:00 78 05/10/20 16:00 2.0 05/10/20 13:35 84 18 100 05/10/20 13:32 85 18 100 05/10/20 12:00 99.7 18 130/73 (92) 98 05/10/20 12:00 86 05/10/20 12:00 2.0 05/10/20 11:49 85 142/66 05/10/20 09:00 Nasal Cannula 2.0 05/10/20 08:50 85 17 142/66 96 Nasal Cannula 2 05/10/20 08:40 84 18 130/71 95 Nasal Cannula 2 05/10/20 08:30 83 22 127/68 94 Nasal Cannula 2 05/10/20 08:25 98.7 80 20 138/71 95 Nasal Cannula 2 05/10/20 08:00 79 05/10/20 08:00 97.7 64 18 116/61 (79) 95 05/10/20 08:00 2.0 05/10/20 07:00 96 Nasal Cannula 2.0 28 Intake and Output 05/10/20 05/11/20 19:00 07:00 Intake Total 210 ml 300 ml Output Total 500 ml Balance -290 ml 300 ml Free Water 30 ml IV Total 130 ml Tube Feeding 50 ml 300 ml Output Urine Total 500 ml # Bowel Movements 1 1 Height (Feet): 6 Height (Inches): 0.00 Weight (Pounds): 148 General Appearance: no apparent distress EENT: normal ENT inspection Neck: normal alignment Cardiovascular: normal rate Respiratory/Chest: decreased breath sounds Abdomen: hypoactive bowel sounds Extremities: non-tender Assessment/Plan Status: progressing, unchanged Assessment/Plan: 1. COPD. 2. Diabetes. 3. Schizophrenia. 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 5. Dementia. 6. Anemia 7. Dysphagia 8. Folate def s/p PEG placement yesterday GTF GT care monitor for residuals will fu Nathan Short MD May 11, 2020 06:11
--- NOTE | 2020-05-11 06:43 | Hematology/Onc Progress Note ---
Assessment/Plan Assessment/Plan # Bilateral pulmonary emboli on cta as well as Dvt on duplex --> Equivocal evidence of right heart strain; RV /LV ratio around 0.5 but is somewhat difficult to assess due to ventricular muscle hypertrophy --> duplex Positive for bilateral lower extremity deep venous thrombosis, as described --> continue on heparin gtt until stabilizes, then consider noac --> 04/29 started on eliquis # Anemia of chronic disease, anemia panel is noted --> r/o bleed, is on anticoag --> hgb 10-->8.7-->8.5-->9.4-->9.7-->>9.5-->9.4->10.4-->9.4 -> no hemolysis is noted # Leukocytosis due to sepsis/uti --> ABX Cefepime/vanc-->off --> smear is reviewed --> wbc 7-->4-->4.8 # COPD. --> breathing rx as needed # Diabetes mellitus --> iss, accuchecks qac and qhs # Schizophrenia. --> per psych recs # History of CVA with left hemiparesis. # Dementia. # Dysphagia -> peg 05/10 # Folate def # Dvt ppx eliquis Appreciate consultation and jorge l Rn Subjective HEENT: Denies: no symptoms, eye pain, blurred vision, tearing, double vision, ear pain, ear discharge, nose pain, nose congestion, throat pain, throat swelling, mouth pain, mouth swelling, other Cardiovascular: Denies: no symptoms, chest pain, edema, irregular heart rate, lightheadedness, palpitations, syncope, other Respiratory: Denies: no symptoms, cough, shortness of breath, SOB with excertion, SOB at rest, sputum, wheezing, other Gastrointestinal/Abdominal: Denies: no symptoms, abdomen distended, abdominal pain, black stools, tarry stools, blood in stool, constipated, diarrhea, difficulty swallowing, nausea, poor appetite, poor fluid intake, rectal bleeding, vomiting, other Genitourinary: Denies: no symptoms, burning, discharge, frequency, flank pain, hematuria, incontinence, pain, urgency, other Neurologic/Psychiatric: Denies: no symptoms, anxiety, depressed, emotional problems, headache, numbness, paresthesia, pre-existing deficit, seizure, tingling, tremors, weakness, other Endocrine: Denies: no symptoms, excessive sweating, flushing, intolerance to cold, intolerance to heat, increased hunger, increased thirst, increased urine, unexplained weight gain, unexplained weight loss, other Hematologic/Lymphatic: Denies: no symptoms, anemia, easy bleeding, easy bruising, adenopathy, other Allergies: Coded Allergies: No Known Allergies (Unverified , 06/11/17) Subjective 04/29 remains on heparin gtt, labs noted, no bleeding, h/h stable, on folate 04/30 meds noted, changed to apixaban, labs noted 05/02 asleep, no bleeding, meds noted, labs reviewed, on noac 05/03 is asleep, no bleeding, no night sweats reported, cbc noted 05/04 remains lethargic, hgb 9.7, no bleeding, meds noted 05/05 labs reviewed, hgb 9.5, dressing changes, no events is combative overnight, is on 2lnc, apixaban 05/07 labs reviewed, meds noted, no fc, wbc 4.7 05/08 labs reviewed, hgb 10.4, no bleeding, meds reviewed, no hemolysis, peg tomorrow 05/10 ngt feedings being held for procedure today with gi 05/11 with peg tube now, is on 2l nc, no bleeding Objective Objective Current Medications Medications (Trade) Dose Ordered Sig/Lopez Route PRN Reason Start Time Stop Time Status Last Admin Dose Admin Acetaminophen (Tylenol) 650 mg Q4H PRN NG fever 05/07/20 20:45 06/06/20 20:44 05/07/20 20:58 Apixaban (Eliquis) 5 mg BID NGT 05/08/20 09:00 08/06/20 08:59 05/10/20 17:34 Ceftriaxone Sodium 1 gm/ Dextrose 55 ml @ 110 mls/hr Q24H IVPB 05/07/20 09:00 05/14/20 08:59 05/10/20 10:00 Chlorhexidine Gluconate (Arpita-Hex 2%) 1 applic DAILY@2000 TOPIC 04/29/20 20:00 07/28/20 19:59 05/10/20 21:01 Clonidine HCl (Catapres Tab) 0.1 mg Q8H PRN GT For High Blood Pressure 05/05/20 16:45 08/03/20 16:44 Dextrose (Dextrose 50%) 25 ml Q30M PRN IV Hypoglycemia 04/25/20 00:00 07/24/20 00:00 Dextrose (Dextrose 50%) 50 ml Q30M PRN IV Hypoglycemia 04/25/20 00:00 07/24/20 00:00 Folic Acid (Folate) 1 mg DAILY NG 05/08/20 09:00 06/07/20 08:59 05/10/20 11:49 Insulin Aspart (NovoLOG) EVERY 6 HOURS SUBQ 05/08/20 06:00 07/24/20 18:00 Lamotrigine (LaMICtal) 25 mg DAILY NG 05/08/20 09:00 06/07/20 08:59 05/10/20 11:49 Memantine (Namenda) 5 mg TWICE A DAY NG 05/08/20 09:00 06/07/20 08:59 05/10/20 17:34 Metoprolol Tartrate (Lopressor) 50 mg BID GT 05/01/20 20:00 07/30/20 19:59 05/10/20 17:34 Olanzapine (ZyPREXA) 5 mg DAILY NG 05/08/20 09:00 06/22/20 08:59 05/10/20 11:48 Ondansetron HCl (Zofran) 4 mg Q6H PRN IVP Nausea & Vomiting 04/25/20 00:00 05/25/20 00:00 Polyethylene Glycol (Miralax) 17 gm DAILYPRN PRN NG Constipation 05/07/20 20:45 06/06/20 20:44 Quetiapine Fumarate (SEROqueL) 50 mg Q12HR NG 05/07/20 21:00 06/21/20 20:59 05/10/20 21:01 Last 24 Hour Vital Signs Date Time Temp Pulse Resp B/P (MAP) Pulse Ox O2 Delivery O2 Flow Rate FiO2 05/11/20 04:00 97.9 62 19 127/74 (91) 98 05/11/20 04:00 62 05/11/20 04:00 2.0 05/11/20 00:00 2.0 05/11/20 00:00 98.6 20 127/64 (85) 98 05/11/20 00:00 64 05/10/20 21:00 Nasal Cannula 2.0 05/10/20 20:14 96 Nasal Cannula 2.0 28 05/10/20 20:00 99.1 19 135/71 (92) 96 05/10/20 20:00 69 05/10/20 20:00 2.0 05/10/20 17:34 84 119/69 05/10/20 16:00 100.0 20 119/69 (86) 99 05/10/20 16:00 78 05/10/20 16:00 2.0 05/10/20 13:35 84 18 100 05/10/20 13:32 85 18 100 05/10/20 12:00 99.7 18 130/73 (92) 98 05/10/20 12:00 86 05/10/20 12:00 2.0 05/10/20 11:49 85 142/66 05/10/20 09:00 Nasal Cannula 2.0 05/10/20 08:50 85 17 142/66 96 Nasal Cannula 2 05/10/20 08:40 84 18 130/71 95 Nasal Cannula 2 05/10/20 08:30 83 22 127/68 94 Nasal Cannula 2 05/10/20 08:25 98.7 80 20 138/71 95 Nasal Cannula 2 05/10/20 08:00 79 05/10/20 08:00 97.7 64 18 116/61 (79) 95 05/10/20 08:00 2.0 05/10/20 07:00 96 Nasal Cannula 2.0 28 05/10/20 04:00 72 05/10/20 04:00 2.0 05/10/20 04:00 98.0 75 16 128/60 (82) 100 05/10/20 00:00 98.6 70 20 129/63 (85) 98 05/10/20 00:00 2.0 05/10/20 00:00 72 05/09/20 21:00 Nasal Cannula 2.0 05/09/20 20:00 69 05/09/20 20:00 98.6 60 16 151/67 (95) 99 05/09/20 20:00 2.0 05/09/20 17:53 66 108/51 05/09/20 16:00 2.0 05/09/20 15:58 66 05/09/20 15:39 97.7 66 20 108/51 (70) 97 05/09/20 12:00 2.0 05/09/20 12:00 97.9 60 20 103/51 (68) 99 05/09/20 11:45 56 05/09/20 09:38 71 115/59 05/09/20 09:00 Nasal Cannula 2.0 05/09/20 08:00 98.2 71 20 115/59 (77) 99 05/09/20 08:00 2.0 05/09/20 07:38 73 05/09/20 07:00 99 Nasal Cannula 2.0 28 Intake and Output 05/10/20 05/11/20 19:00 07:00 Intake Total 210 ml 300 ml Output Total 500 ml Balance -290 ml 300 ml Free Water 30 ml IV Total 130 ml Tube Feeding 50 ml 300 ml Output Urine Total 500 ml # Bowel Movements 1 1 Labs Test 05/08/20 12:02 05/08/20 17:26 05/09/20 07:20 05/09/20 12:04 POC Whole Blood Glucose 118 MG/DL (74-106) 111 MG/DL (74-106) 125 MG/DL (74-106) White Blood Count 5.8 K/UL (4.8-10.8) Red Blood Count 3.45 M/UL (4.70-6.10) Hemoglobin 10.4 G/DL (14.2-18.0) Hematocrit 33.5 % (42.0-52.0) Mean Corpuscular Volume 97 FL (80-99) Mean Corpuscular Hemoglobin 30.0 PG (27.0-31.0) Mean Corpuscular Hemoglobin Concent 30.9 G/DL (32.0-36.0) Red Cell Distribution Width 13.3 % (11.6-14.8) Platelet Count 251 K/UL (150-450) Mean Platelet Volume 6.4 FL (6.5-10.1) Neutrophils (%) (Auto) 62.6 % (45.0-75.0) Lymphocytes (%) (Auto) 19.6 % (20.0-45.0) Monocytes (%) (Auto) 10.8 % (1.0-10.0) Eosinophils (%) (Auto) 5.3 % (0.0-3.0) Basophils (%) (Auto) 1.7 % (0.0-2.0) Sodium Level 141 MMOL/L (136-145) Potassium Level 4.7 MMOL/L (3.5-5.1) Chloride Level 108 MMOL/L (98-107) Carbon Dioxide Level 30 MMOL/L (21-32) Anion Gap 3 mmol/L (5-15) Blood Urea Nitrogen 22 mg/dL (7-18) Creatinine 0.6 MG/DL (0.55-1.30) Estimat Glomerular Filtration Rate > 60 mL/min (>60) Glucose Level 111 MG/DL (74-106) Calcium Level 8.0 MG/DL (8.5-10.1) Test 05/09/20 17:58 05/09/20 23:43 05/10/20 03:15 05/10/20 05:41 POC Whole Blood Glucose 119 MG/DL (74-106) 101 MG/DL (74-106) White Blood Count 4.8 K/UL (4.8-10.8) Red Blood Count 3.13 M/UL (4.70-6.10) Hemoglobin 9.4 G/DL (14.2-18.0) Hematocrit 29.7 % (42.0-52.0) Mean Corpuscular Volume 95 FL (80-99) Mean Corpuscular Hemoglobin 29.9 PG (27.0-31.0) Mean Corpuscular Hemoglobin Concent 31.5 G/DL (32.0-36.0) Red Cell Distribution Width 13.4 % (11.6-14.8) Platelet Count 248 K/UL (150-450) Mean Platelet Volume 6.2 FL (6.5-10.1) Neutrophils (%) (Auto) 53.1 % (45.0-75.0) Lymphocytes (%) (Auto) 26.3 % (20.0-45.0) Monocytes (%) (Auto) 9.7 % (1.0-10.0) Eosinophils (%) (Auto) 8.8 % (0.0-3.0) Basophils (%) (Auto) 2.1 % (0.0-2.0) Prothrombin Time 12.0 SEC (9.30-11.50) Prothromb Time International Ratio 1.1 (0.9-1.1) Activated Partial Thromboplast Time 30 SEC (23-33) Sodium Level 141 MMOL/L (136-145) Potassium Level 4.4 MMOL/L (3.5-5.1) Chloride Level 108 MMOL/L (98-107) Carbon Dioxide Level 32 MMOL/L (21-32) Anion Gap 1 mmol/L (5-15) Blood Urea Nitrogen 23 mg/dL (7-18) Creatinine 0.5 MG/DL (0.55-1.30) Estimat Glomerular Filtration Rate > 60 mL/min (>60) Glucose Level 106 MG/DL (74-106) Calcium Level 8.0 MG/DL (8.5-10.1) Height (Feet): 6 Height (Inches): 0.00 Weight (Pounds): 148 Objective General Appearance: no apparent distress EENT: other - On nasal cannula Cardiovascular: normal rate - Rate 85 Respiratory/Chest: decreased breath sounds Abdomen: distended ++ peg EXT: no cce Sree Dubon MD May 11, 2020 06:43
--- NOTE | 2020-05-11 07:20 | NUR ---
NURSE HAND-OFF REPORT: Important Events on Shift:Remained on 2 liters NC well tolerated Patient Status: Diet: Pending Orders: Pending Results/Labs: Pending MD notification: Latest Vital Signs: Temperature 97.9 , Pulse 62 , B/P 127 /74 , Respiratory Rate 19 , O2 SAT 98 , Nasal Cannula, O2 Flow Rate 2.0 . Vital Sign Comment: EKG Rhythm: Sinus Rhythm Rhythm change?: N MD Notified?: N Joe Whitney MD Response: No New Orders Received Latest Andersen Fall Score: 50 Fall Risk: High Risk Safety Measures: Call light Within Reach, Bed Alarm Zone 2, Side Rails Side Rails x3, Bed position Low and Locked. Fall Precautions: Yellow Socks Yellow Gown Door Sign Patient Fall Education Report given to .
--- NOTE | 2020-05-11 07:25 | NUR ---
NURSE NOTES: made rounds, pt is asleep and arousable in his bed. o2 @ 2l/min via nc is inplace. respiration is even and unlabored. HOB elevated. no coughing noted. bilateral lungs sounds clear to auscultation. no facial grimacing for pain noted. call light is placed within reach.
--- NOTE | 2020-05-11 07:31 | Infectious Diseases Prog Note ---
Assessment/Plan 80yo M with: Fever x1 05/05, again 05/06 Acute BLE DVTs 05/05 BCx NTD CXR: Significantly improved aeration of the left lung compared to one day prior. Residual dense atelectasis/consolidation of the left base. Interval development of some patchy opacities at the right base. Developing pneumonia not excluded. 05/07 CXR: No changes from prior 05/07 BLE US: 1. Acute right DVT involving proximal superficial femoral vein through the popliteal vein. 2. Acute left DVT involving proximal superficial femoral vein through the popliteal vein and calf. 05/07 UA 5-10 WBC, UCx NTD 05/10 CXR: Right arm PICC is again demonstrated. There is persistent retrocardiac consolidation and likely pleural fluid on the left. The remainder the lungs and pleural spaces are clear. Sepsis UTI -u/a wbc 50-60, nit neg, leuk +1; ucx Neg Gram positive bacteremia- m/l contaminant -04/24 sp cx 1/2 S. epi; 04/26 Bcx NTD Fever; SP No leukocytosis -04/26 influenza screen neg CXR: Borderline cardiomegaly. No acute process -04/24 CXR: No acute cardiopulmonary disease. covid rapid PCR neg Acute hypoxic resp failure- SP NRB>Bipap> VM . BiPAP B/l DVT and PE -CTA chest: Positive for bilateral pulmonary emboli Equivocal evidence of right heart strain; RV /LV ratio around 0.5 but is somewhat difficult to assess due to ventricular muscle hypertrophy. Left basilar compressive atelectasis, pleural fluid, and possibly some consolidation. Trace right pleural fluid. Subtle mosaic perfusion pattern, nonspecific but probably represents very mild pulmonary edema. Cardiomegaly. Nasogastric tube -V. duplex: : On the right, occlusive thrombus is seen within the downstream common femoral vein, the femoral vein, popliteal vein as well as within multiple calf veins. On the left, occlusive thrombus is seen within the femoral vein and popliteal vein the common femoral vein and calf veins are patent. COPD DM2 HTN schizophrenia malnutrition CVA w/ left spastic hemiparesis vascular dementia schizoaffective-bipolar type SNF resident (Eve[facility] peterson) Plan: Cont CTX #5 / 5 for possible aspiration pneumonitis given new fevers, although could also be 2/2 acute BLE DVTs 05/01 SP cefepime #8 04/30 SP vanco IV #6 -f/u cx -Monitor CBC/CMP, temperatures -aspiration precautions D/w RN Thank you for consulting [facility]. Will continue to follow along with you. Subjective Allergies: Coded Allergies: No Known Allergies (Unverified , 06/11/17) AF, TMax 100.0 NAD in bed on 2L NC Objective Last 24 Hour Vital Signs Date Time Temp Pulse Resp B/P (MAP) Pulse Ox O2 Delivery O2 Flow Rate FiO2 05/11/20 04:00 97.9 62 19 127/74 (91) 98 05/11/20 04:00 62 05/11/20 04:00 2.0 05/11/20 00:00 2.0 05/11/20 00:00 98.6 20 127/64 (85) 98 05/11/20 00:00 64 05/10/20 21:00 Nasal Cannula 2.0 05/10/20 20:14 96 Nasal Cannula 2.0 28 05/10/20 20:00 99.1 19 135/71 (92) 96 05/10/20 20:00 69 05/10/20 20:00 2.0 05/10/20 17:34 84 119/69 05/10/20 16:00 100.0 20 119/69 (86) 99 05/10/20 16:00 78 05/10/20 16:00 2.0 05/10/20 13:35 84 18 100 05/10/20 13:32 85 18 100 05/10/20 12:00 99.7 18 130/73 (92) 98 05/10/20 12:00 86 05/10/20 12:00 2.0 05/10/20 11:49 85 142/66 05/10/20 09:00 Nasal Cannula 2.0 05/10/20 08:50 85 17 142/66 96 Nasal Cannula 2 05/10/20 08:40 84 18 130/71 95 Nasal Cannula 2 05/10/20 08:30 83 22 127/68 94 Nasal Cannula 2 05/10/20 08:25 98.7 80 20 138/71 95 Nasal Cannula 2 05/10/20 08:00 79 05/10/20 08:00 97.7 64 18 116/61 (79) 95 05/10/20 08:00 2.0 Height (Feet): 6 Height (Inches): 0.00 Weight (Pounds): 148 Gen: NAD in bed HEENT: NCAT on NC CV: RRR Pulm: CTAB Abd: Soft, NTND + PEG Ext: No c/c/e Neuro: Awake, moans on exam Current Medications Medications (Trade) Dose Ordered Sig/Lopez Route PRN Reason Start Time Stop Time Status Last Admin Dose Admin Acetaminophen (Tylenol) 650 mg Q4H PRN NG fever 05/07/20 20:45 06/06/20 20:44 05/07/20 20:58 Apixaban (Eliquis) 5 mg BID NGT 05/08/20 09:00 08/06/20 08:59 05/10/20 17:34 Ceftriaxone Sodium 1 gm/ Dextrose 55 ml @ 110 mls/hr Q24H IVPB 05/07/20 09:00 05/14/20 08:59 05/10/20 10:00 Chlorhexidine Gluconate (Arpita-Hex 2%) 1 applic DAILY@2000 TOPIC 04/29/20 20:00 07/28/20 19:59 05/10/20 21:01 Clonidine HCl (Catapres Tab) 0.1 mg Q8H PRN GT For High Blood Pressure 05/05/20 16:45 08/03/20 16:44 Dextrose (Dextrose 50%) 25 ml Q30M PRN IV Hypoglycemia 04/25/20 00:00 07/24/20 00:00 Dextrose (Dextrose 50%) 50 ml Q30M PRN IV Hypoglycemia 04/25/20 00:00 07/24/20 00:00 Folic Acid (Folate) 1 mg DAILY NG 05/08/20 09:00 06/07/20 08:59 05/10/20 11:49 Insulin Aspart (NovoLOG) EVERY 6 HOURS SUBQ 05/08/20 06:00 07/24/20 18:00 Lamotrigine (LaMICtal) 25 mg DAILY NG 05/08/20 09:00 06/07/20 08:59 05/10/20 11:49 Memantine (Namenda) 5 mg TWICE A DAY NG 05/08/20 09:00 06/07/20 08:59 05/10/20 17:34 Metoprolol Tartrate (Lopressor) 50 mg BID GT 05/01/20 20:00 07/30/20 19:59 05/10/20 17:34 Olanzapine (ZyPREXA) 5 mg DAILY NG 05/08/20 09:00 06/22/20 08:59 05/10/20 11:48 Ondansetron HCl (Zofran) 4 mg Q6H PRN IVP Nausea & Vomiting 04/25/20 00:00 05/25/20 00:00 Polyethylene Glycol (Miralax) 17 gm DAILYPRN PRN NG Constipation 05/07/20 20:45 06/06/20 20:44 Quetiapine Fumarate (SEROqueL) 50 mg Q12HR NG 05/07/20 21:00 06/21/20 20:59 05/10/20 21:01 Raina Loving M.D. May 11, 2020 07:31
[2020-05-11 08:00] VITALS: BP 127/56
[2020-05-11] MEDS: Memantine 10mg tab NG SCH (09:23)
[2020-05-11] MEDS: Eliquis 5mg tablet NGT SCH (09:23)
[2020-05-11] MEDS: Metoprolol Tartrate 50mg tab GT SCH (09:23)
[2020-05-11] MEDS: cefTRIAXone 1 GM in D5W 55 ML IVPB SCH (09:24)
--- NOTE | 2020-05-11 10:13 | NUR ---
NURSE NOTES: Received order to discontinue BIPAP due to non-usage.
--- NOTE | 2020-05-11 10:56 | Psychiatry Consultation ---
Psychiatry Consultation Psychiatry Consultation Chief Complaint: Dyspnea/Respdistress History of Present Illness: 80-year-old male patient confused disorganized because his confusion disorga nized Mental status examination: 80-year-old male who is appearance disheveled his attitude irritable agitated affect guarded restricted intellect poor mood depressed anxious motor activity psychomotor agitation Insight and judgment is poor Allergies: Coded Allergies: No Known Allergies (Unverified , 06/11/17) Medication History Scheduled Amino Acids/Protein Hydrolys (Pro-Stat Liquid), 30 ML ORAL DAILY, (Reported) Aspirin (Aspirin EC), 81 MG ORAL DAILY, (Reported) Docusate Sodium* (Colace*), 100 MG ORAL DAILY, (Reported) Folic Acid* (Folic Acid*), 1 MG ORAL DAILY, (Reported) Heparin Sod (Porcine) (Heparin Sodium*), 5,000 UNITS SUBQ DAILY, (Reported) Lamotrigine* (Lamictal*), 25 MG ORAL DAILY, (Reported) Lisinopril (Lisinopril*), 20 MG ORAL BID, (Reported) Memantine Hcl* (Namenda*), 5 MG ORAL TWICE A DAY, (Reported) Multivitamin With Minerals (Multivitamins With Minerals*), 1 TAB ORAL DAILY, (Reported) Olanzapine* (Zyprexa*), 5 MG ORAL DAILY, (Reported) Sennosides (Senna), 2 TAB PO BEDTIME, (Reported) Scheduled PRN Acetaminophen* (Acetaminophen 325MG Tablet*), 650 MG ORAL Q4H PRN for Fever/Headache/Mild Pain, (Reported) Bisacodyl (Dulcolax), 10 MG RC for Constipation, (Reported) Hydralazine Hcl* (Hydralazine Hcl*), 10 MG ORAL Q4HR PRN for SBP > 160 , (Reported) Ipratropium/Albuterol Sulfate (DuoNeb 0.5-3(2.5)mg/3ml), 1 UNIT HHN EVERY 6 HOURS PRN for Shortness of Breath, (Reported) Magnesium Hydroxide* (Milk Of Magnesia*), 30 ML ORAL EVERY 6 HOURS PRN for Con stipation, (Reported) Na Phos,M-B/Na Phos,Di-Ba* (Fleet Enema*), 133 ML RECTAL DAILY PRN for Con stipation, (Reported) Nitroglycerin 0.4MG table* (Nitroglycerin*), 0.4 MG SL .Q5MIN X 3 DOSES PRN for CHEST PAIN, (Reported) Miscellaneous Medications Insulin Lispro (Humalog), 0 SUBQ, (Reported) Objective Data Height (Feet): 6 Height (Inches): 0.00 Weight (Pounds): 148 Assessment/Plan Assessment/Plan: Continue the patient on Lamictal, Zyprexa, Ativan and Namenda. 20min of insight oriented psychotherapy to help him recognize his psychical and cogintive deficits so that he has less depression and better impulse control. Diagnosis Willard I: Schizoaffective bipolar type Dakota Monroe MD May 11, 2020 10:56
[2020-05-11 12:00] VITALS: BP 105/60
--- NOTE | 2020-05-11 12:27 | Pulmonology Progress Note ---
Subjective ROS Limited/Unobtainable: No Constitutional: Reports: no symptoms HEENT: Repors: no symptoms Allergies: Coded Allergies: No Known Allergies (Unverified , 06/11/17) All Systems: reviewed and negative except above Objective Last 24 Hour Vital Signs Date Time Temp Pulse Resp B/P (MAP) Pulse Ox O2 Delivery O2 Flow Rate FiO2 05/11/20 09:23 86 127/56 05/11/20 09:00 Nasal Cannula 2.0 05/11/20 08:00 75 05/11/20 08:00 97.6 86 18 127/56 (79) 100 05/11/20 08:00 2.0 05/11/20 07:12 98 Nasal Cannula 2.0 28 05/11/20 04:00 97.9 62 19 127/74 (91) 98 05/11/20 04:00 62 05/11/20 04:00 2.0 05/11/20 00:00 2.0 05/11/20 00:00 98.6 20 127/64 (85) 98 05/11/20 00:00 64 05/10/20 21:00 Nasal Cannula 2.0 05/10/20 20:14 96 Nasal Cannula 2.0 28 05/10/20 20:00 99.1 19 135/71 (92) 96 05/10/20 20:00 69 05/10/20 20:00 2.0 05/10/20 17:34 84 119/69 05/10/20 16:00 100.0 20 119/69 (86) 99 05/10/20 16:00 78 05/10/20 16:00 2.0 05/10/20 13:35 84 18 100 05/10/20 13:32 85 18 100 Intake and Output 05/10/20 05/11/20 19:00 07:00 Intake Total 210 ml 350 ml Output Total 500 ml 840 ml Balance -290 ml -490 ml Free Water 30 ml IV Total 130 ml Tube Feeding 50 ml 350 ml Output Urine Total 500 ml 840 ml # Bowel Movements 1 1 General Appearance: cachetic HEENT: normocephalic, atraumatic Respiratory: chest wall non-tender Cardiovascular: normal peripheral pulses Abdomen: normal bowel sounds, soft, non tender, no organomegaly Extremities: no cyanosis, no clubbing Current Medications Medications (Trade) Dose Ordered Sig/Lopez Route PRN Reason Start Time Stop Time Status Last Admin Dose Admin Acetaminophen (Tylenol) 650 mg Q4H PRN NG fever 05/07/20 20:45 06/06/20 20:44 05/07/20 20:58 Apixaban (Eliquis) 5 mg BID NGT 05/08/20 09:00 08/06/20 08:59 05/11/20 09:23 Ceftriaxone Sodium 1 gm/ Dextrose 55 ml @ 110 mls/hr Q24H IVPB 05/07/20 09:00 05/14/20 08:59 05/11/20 09:24 Chlorhexidine Gluconate (Arpita-Hex 2%) 1 applic DAILY@2000 TOPIC 04/29/20 20:00 07/28/20 19:59 05/10/20 21:01 Clonidine HCl (Catapres Tab) 0.1 mg Q8H PRN GT For High Blood Pressure 05/05/20 16:45 08/03/20 16:44 Dextrose (Dextrose 50%) 25 ml Q30M PRN IV Hypoglycemia 04/25/20 00:00 07/24/20 00:00 Dextrose (Dextrose 50%) 50 ml Q30M PRN IV Hypoglycemia 04/25/20 00:00 07/24/20 00:00 Folic Acid (Folate) 1 mg DAILY NG 05/08/20 09:00 06/07/20 08:59 05/11/20 09:23 Insulin Aspart (NovoLOG) EVERY 6 HOURS SUBQ 05/08/20 06:00 07/24/20 18:00 Lamotrigine (LaMICtal) 25 mg DAILY NG 05/08/20 09:00 06/07/20 08:59 05/11/20 09:23 Memantine (Namenda) 5 mg TWICE A DAY NG 05/08/20 09:00 06/07/20 08:59 05/11/20 09:23 Metoprolol Tartrate (Lopressor) 50 mg BID GT 05/01/20 20:00 07/30/20 19:59 05/11/20 09:23 Olanzapine (ZyPREXA) 5 mg DAILY NG 05/08/20 09:00 06/22/20 08:59 05/11/20 09:23 Ondansetron HCl (Zofran) 4 mg Q6H PRN IVP Nausea & Vomiting 04/25/20 00:00 05/25/20 00:00 Polyethylene Glycol (Miralax) 17 gm DAILYPRN PRN NG Constipation 05/07/20 20:45 06/06/20 20:44 Quetiapine Fumarate (SEROqueL) 50 mg Q12HR NG 05/07/20 21:00 06/21/20 20:59 05/11/20 09:23 Assessment/Plan Problems: (1) Acute massive pulmonary embolism (2) Feeding by G-tube (3) Acute deep vein thrombosis (DVT) (4) Lung collapse (5) Sepsis (6) ATN (acute tubular necrosis) (7) Diabetes (8) HTN (hypertension) (9) CVA (cerebral vascular accident) (10) 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 sliding scale symptomatic treatment retirement anticoagulation Luzmaria Downey MD May 11, 2020 12:27
[2020-05-11] MEDS ORDERED: ELIQUIS5 MG NGT (12:33)
--- NOTE | 2020-05-11 12:44 | Nephrology Progress Note ---
Assessment/Plan Problem List: (1) KORY (acute kidney injury) (2) Hypernatremia (3) Dehydration (4) Acute respiratory failure Assessment Patient presents with acute hypoxic respiratory failure requiring BiPAP Sepsis lactic acidosis KORY Dehydration, hypernatremia History of COPD Anemia Low BMI, malnutrition. BMI of 20.1 History of CVA History of diabetes mellitus Plan May 11: No labs drawn today. Status quo. Continue per consultants. May 10: Labs reviewed. Status quo. On nasal cannula. Renal parameters stable. Continue per consultants. May 09: Labs reviewed. Renal parameters stable. Continue per consultants. May 08: Labs reviewed. Renal parameters stable. Continue per current management. May 07: Labs reviewed. Renal parameters stable. Continue per current treatment plan. May 06: Labs reviewed. Renal parameters stable. Continue per consultants. Remains full code. May 05: Labs reviewed. Renal parameters stable. Continue current management. Remains on Venturi mask. Remains full code. Calcium supplement discontinued May 04: Labs reviewed. Renal parameters are stable. Continue per current management. May 03: Labs reviewed. Renal parameters stable. Phosphorus supplement IV given. May 02: Serum sodium up to 144. Stable from renal standpoint of view. Continue per consultants. May 01: Serum serum sodium 136. Will stop D5W IV fluid. 1 dose of Lasix IV. Potassium supplement. Continue to monitor electrolytes. Continue per consultants. April 30: Serum sodium 146. Low phosphorus replaced. Continue pulmonary support and per consultants. April 29: Serum sodium normalized. Electrolytes within normal limit. Re siddhartha on nonrebreather mask. Continue per consultants. April 28: Continue D5W. Abnormal electrolytes addressed. Continue per consultants. Remains full code. Remains on nonrebreather mask. April 27: Continue D5W. Continue pulmonary support. Monitor renal parameters and electrolytes. Continue per consultants. Patient full code. Remains on nonrebreathing mask. Contreras catheter IV D5W Monitor electrolytes and renal parameters Antibiotics Avoid nephrotoxic's 2D echocardiogram Per orders Subjective ROS Limited/Unobtainable: No Constitutional: Reports: malaise, weakness Objective Objective Last 24 Hour Vital Signs Date Time Temp Pulse Resp B/P (MAP) Pulse Ox O2 Delivery O2 Flow Rate FiO2 05/11/20 09:23 86 127/56 05/11/20 09:00 Nasal Cannula 2.0 05/11/20 08:00 75 05/11/20 08:00 97.6 86 18 127/56 (79) 100 05/11/20 08:00 2.0 05/11/20 07:12 98 Nasal Cannula 2.0 28 05/11/20 04:00 97.9 62 19 127/74 (91) 98 05/11/20 04:00 62 05/11/20 04:00 2.0 05/11/20 00:00 2.0 05/11/20 00:00 98.6 20 127/64 (85) 98 05/11/20 00:00 64 05/10/20 21:00 Nasal Cannula 2.0 05/10/20 20:14 96 Nasal Cannula 2.0 28 05/10/20 20:00 99.1 19 135/71 (92) 96 05/10/20 20:00 69 05/10/20 20:00 2.0 05/10/20 17:34 84 119/69 05/10/20 16:00 100.0 20 119/69 (86) 99 05/10/20 16:00 78 05/10/20 16:00 2.0 05/10/20 13:35 84 18 100 05/10/20 13:32 85 18 100 Intake and Output 05/10/20 05/11/20 19:00 07:00 Intake Total 210 ml 350 ml Output Total 500 ml 840 ml Balance -290 ml -490 ml Free Water 30 ml IV Total 130 ml Tube Feeding 50 ml 350 ml Output Urine Total 500 ml 840 ml # Bowel Movements 1 1 Current Medications Medications (Trade) Dose Ordered Sig/Lopez Route PRN Reason Start Time Stop Time Status Last Admin Dose Admin Acetaminophen (Tylenol) 650 mg Q4H PRN NG fever 05/07/20 20:45 06/06/20 20:44 05/07/20 20:58 Apixaban (Eliquis) 5 mg BID NGT 05/08/20 09:00 08/06/20 08:59 05/11/20 09:23 Ceftriaxone Sodium 1 gm/ Dextrose 55 ml @ 110 mls/hr Q24H IVPB 05/07/20 09:00 05/14/20 08:59 05/11/20 09:24 Chlorhexidine Gluconate (Arpita-Hex 2%) 1 applic DAILY@2000 TOPIC 04/29/20 20:00 07/28/20 19:59 05/10/20 21:01 Clonidine HCl (Catapres Tab) 0.1 mg Q8H PRN GT For High Blood Pressure 05/05/20 16:45 08/03/20 16:44 Dextrose (Dextrose 50%) 25 ml Q30M PRN IV Hypoglycemia 04/25/20 00:00 07/24/20 00:00 Dextrose (Dextrose 50%) 50 ml Q30M PRN IV Hypoglycemia 04/25/20 00:00 07/24/20 00:00 Folic Acid (Folate) 1 mg DAILY NG 05/08/20 09:00 06/07/20 08:59 05/11/20 09:23 Insulin Aspart (NovoLOG) EVERY 6 HOURS SUBQ 05/08/20 06:00 07/24/20 18:00 Lamotrigine (LaMICtal) 25 mg DAILY NG 05/08/20 09:00 06/07/20 08:59 05/11/20 09:23 Memantine (Namenda) 5 mg TWICE A DAY NG 05/08/20 09:00 06/07/20 08:59 05/11/20 09:23 Metoprolol Tartrate (Lopressor) 50 mg BID GT 05/01/20 20:00 07/30/20 19:59 05/11/20 09:23 Olanzapine (ZyPREXA) 5 mg DAILY NG 05/08/20 09:00 06/22/20 08:59 05/11/20 09:23 Ondansetron HCl (Zofran) 4 mg Q6H PRN IVP Nausea & Vomiting 04/25/20 00:00 05/25/20 00:00 Polyethylene Glycol (Miralax) 17 gm DAILYPRN PRN NG Constipation 05/07/20 20:45 06/06/20 20:44 Quetiapine Fumarate (SEROqueL) 50 mg Q12HR NG 05/07/20 21:00 06/21/20 20:59 05/11/20 09:23 Height (Feet): 6 Height (Inches): 0.00 Weight (Pounds): 148 General Appearance: no apparent distress, lethargic Cardiovascular: normal rate Respiratory/Chest: decreased breath sounds Abdomen: distended Maximino Castillo MD May 11, 2020 12:44
--- NOTE | 2020-05-11 15:50 | NUR ---
*-*DISCHARGE PLANNED*-* PATIENT HAS BEEN ACCEPTED AND WILL BE DISCHARGED BACK TO: [facility] P: [phone] FOR NURSE TO NURSE REPORT ROOM# 13.[facility] SET FOR 5PM S/W ERIC [id number].
[2020-05-11 16:00] VITALS: BP 118/67
--- NOTE | 2020-05-11 17:15 | NUR ---
NURSE NOTES: Patient is discharged to [facility] without any signs of distress. Patient is awake. A&O x 0 with confusion; provided reality orientation at all time. Respiration is even and unlabored on O2@2l/min via NC. no s/s of pain and discomfort noted at this time. noted with comprised skin on sacral area, and bilateral heels. pictures taken and uploaded. pt unable to sign inventory form. PICC line removed and wrist band removed. Patient is placed in a gurney, transported via [facility] accompanied by 2 COOK'S ASSISTANT.
--- NOTE | 2020-05-14 11:16 | Discharge Summary ---
Discharge Summary Discharge Summary _ DATE OF ADMISSION: 04/24/2020 DATE OF DISCHARGE: 05/11/2020 DISCHARGED BY: Dr Carlin REASON FOR ADMISSION: 80 years old male, resident of jail facility, with past medical history of COPD, CVA with left spastic hemiparesis, diabetes mellitus, vascular dementia, schizophrenia, presented from the jail facility due to shortness of breath . At the facility patient was found to be in respiratory distress , hypoxia and subsequently paramedics were called. On arrival of emt/paramedic patient was hypoxic , improved by nonrebreather mask. Patient by himself was unable to provide any history. Upon evaluation saturation was 97% on nonrebreather mask. Laboratory work-up revealed WBC 10.6, hemoglobin 11.1 , hematocrit 25.2, platelet count 184. Sodium 159, chloride 125 . BUN 39, creatinine 1.3. Lactic acid 3.1 Rapid COVID 19 NGT Glucose 131 Troponin 0.044 , pro BNP 412. EKG revealed sinus arrhythmia , no acute ischemic changes. Albumin 1.5. Chest x-ray revealed no acute cardiopulmonary pathology. Urinalysis revealed pyuria and few bacteria. In emergency department patient was placed on the BiPAP , received IV fluids, pancultured, started on empiric antibiotics. Patient subsequently admitted to stepdown unit for further management . CONSULTANTS: auger supervisor Dr. Whitney pulmonary Dr. Downey ID specialist Dr. Morales GI specialist Dr. Short contract clerk automobile Dr. Castillo collection advisor/oncologist Dr. Dubon psychiatrist Dr. Monroe [facility] COURSE: [] Patient initially admitted to [facility]. Patient started on the BiPAP. Settings titrated according to the ABG results pulmonary toilet provider provided. Patient started on empiric antibiotic. Initiated patient started on DVT prophylaxis. Venous duplex bilateral lower extremity revealed bilateral lower extremity DVT CTA of the chest and thorax revealed bilateral pulmonary emboli. Echocardiogram demonstrated was a technically difficult study but demonstrated that left v entricular ejection fraction estimated to be grossly normal. Patient started on anticoagulation with Eliquis. Empiric antibiotic provided by ID specialist for possible aspiration pneumonia given fevers. Fevers resolved. Patient was follow-up with a chest x-ray. Blood cultures were negative. Urine culture was negative. Patient failed swallow evaluation NG tube feeding provided. Strict aspiration precaution maintained. Renal parameters electrolytes are closely monitor electrolytes corrected as needed nephrotoxic's were avoided. Prior to discharge all electrolytes stable. BUN 23 creatinine 0.5. Blood sugar was managed with sliding scale of insulin. Vp Design followed. Patient demonstrated wandering pacemaker versus multifocal atrial rhythm but and converted to sinus rhythm with APC bigeminy. Beta-dean continued. Antiplatelet therapy with aspirin and statin continued. Patient undergone upper endoscopy with a PEG placement on 1122. G-tube site care provided. Tube feeding started later with the tube feeding formula goal rate and protein supplements as per registered dietitian recommendation. Patient was able to tolerate tube feeding. Hemoglobin and hematocrit were closely monitored with goal to keep hemoglobin above 7. Anemia work-up was consistent with anemia of chronic disease, and also revealed folate deficiency. Patient started on folate deficiency. Patient undergone transfusion of 1 unit of packed red blood cells while in the hospital Stool for occult blood negative x2. Psychiatrist followed. Psychiatric medication regimen continued and optimized as per psychiatrist recommendation. Insight oriented psychotherapy provided. Patient clinically stabilized and was ready for transfer back to jail facility for continuation of care FINAL DIAGNOSES: Acute hypoxemic respiratory failure requiring meeting BiPAP resolved probably due to acute DVT and PE Bilateral DVT Bilateral PE Sepsis Probably aspiration pneumonitis KORY Dehydration Dysphagia , status post PEG placement 05/10 Hypernatremia COPD Anemia Protein calorie malnutrition History of CVA with left hemiparesis Wandering pacemaker or multifocal atrial rhythm Diabetes mellitus Anemia chronic disease Dementia Schizoaffective bipolar type DISCHARGE MEDICATIONS: See Medication Reconciliation list. DISCHARGE INSTRUCTIONS: Patient was discharged to the jail facility. Follow up with medical doctor at the facility. I have been assigned to dictate discharge summary for this account. Deysi Sahu NP May 14, 2020 11:16
== END 2020-05-11 17:15 | DRG 871 ==
LOC: EDBD 19:41 → EMR 19:52 → 2W 22:30 → EDBEDREQ 23:04 → 2W 04-25 07:56 → 2E 05-08 15:30
DX: A41.9 Sepsis, unspecified organism (principal); J96.01 Acute respiratory failure with hypoxia; I26.99 Other pulmonary embolism without acute cor pulmonale; J69.0 Pneumonitis due to inhalation of food and vomit; E43 Unspecified severe protein-calorie malnutrition; E87.0 Hyperosmolality and hypernatremia; I82.413 Acute embolism and thrombosis of femoral vein, bilateral; I82.433 Acute embolism and thrombosis of popliteal vein, bilateral; I69.954 Hemiplegia and hemiparesis following unspecified cerebrovascular disease affecting left non-dominant side; F33.3 Major depressive disorder, recurrent, severe with psychotic symptoms; G93.40 Encephalopathy, unspecified; E86.0 Dehydration; D52.9 Folate deficiency anemia, unspecified; Z68.20 Body mass index [BMI] 20.0-20.9, adult; J44.9 Chronic obstructive pulmonary disease, unspecified; F25.0 Schizoaffective disorder, bipolar type; I69.919 Unspecified symptoms and signs involving cognitive functions following unspecified cerebrovascular disease; F01.50 Vascular dementia, unspecified severity, without behavioral disturbance, psychotic disturbance, mood disturbance, and anxiety; R13.10 Dysphagia, unspecified; K29.70 Gastritis, unspecified, without bleeding; I49.8 Other specified cardiac arrhythmias
CPT/HCPCS: 36415; 36569; 70450; 71045; 71275; 74018; 76700; 76937; 80048; 80053; 80061; 80069; 80076; 80202; 81003; 82140; 82270; 82550; 82553; 82607; 82728; 82746; 82803; 82962; 82977; 83036; 83540; 83550; 83605; 83735; 83880; 84100; 84300; 84443; 84484; 84550; 85007; 85025; 85610; 85651; 85730; 86140; 86703; 86705; 86709; 86710; 86803; 86850; 86900; 86901; 86920; 87040; 87070; 87081; 87086; 87181; 87205; 87340; 93005; 93306; 93970; 94003; 94150; 94660; 96361; 96365; 99291; J1815; J7030; J8499; U0002